=== PATIENT | female | born 1950 | race Caucasian/White ===

== ENCOUNTER 2020-02-19 08:19 | Outpatient (REF) | payer MEDICARE, SELFPAY ==
--- NOTE | 2020-02-19 08:32 | US_ITS ---
EXAMINATION: US ABDOMEN COMPLETE CLINICAL INFORMATION: Epigastric abdominal pain. COMPARISON: Renal ultrasound 12/05/2018 and 07/26/2009. KUB 10/16/2012. CT abdomen and pelvis 09/17/2012. TECHNIQUE: Real-time imaging of the abdominal viscera. FINDINGS: PANCREAS: Normal. ABDOMINAL AORTA: The proximal segment is normal in caliber. INFERIOR VENA CAVA: Visualized portions are normal. LIVER: Normal. The liver demonstrates normal size, contour and echogenicity. No focal lesion or intrahepatic biliary duct dilatation. GALLBLADDER: Normal. The gallbladder is physiologically distended without evidence of stones, sludge, polyps, wall thickening or pericholecystic fluid. COMMON BILE DUCT: Normal in caliber measuring 0.2 cm in diameter. RIGHT KIDNEY: Two echogenic, shadowing foci in the right kidney are noted, measuring 0.8 cm in diameter at a lower pole calyx and 1.2 cm in diameter within the renal pelvis, most consistent with calculi. No hydronephrosis or focal parenchymal lesions. The kidney measures 11.4 cm in maximum dimension. LEFT KIDNEY: Three echogenic, shadowing foci in the left kidney are noted, measuring 0.9, 1.5, and 0.7 cm in diameter, situated in within calyces in the lower pole, upper pole/interpolar region, and upper pole/interpolar region, respectively. No hydronephrosis or focal parenchymal lesions. The kidney measures 11.4 cm in maximum dimension. SPLEEN: Normal. The spleen measures 9.3 cm in maximum dimension. FREE FLUID: None. IMPRESSION: Bilateral nephrolithiasis. No hydronephrosis to indicate an obstruction.
== END 2020-02-19 08:20 | disposition home or self-care (01) ==
LOC: HO.US 08:19
PROVIDERS: PCP Surgery Plastic and Reconstructive Surgery; Visit Provider Internal Medicine
DX: R10.13 Epigastric pain (principal)
CPT/HCPCS: 76700

== ENCOUNTER 2020-03-12 15:02 | Outpatient (REF) | payer MEDICARE, SELFPAY ==
--- NOTE | 2020-03-12 15:11 | MM_ITS ---
EXAMINATION: MM DIAGNOSTIC DIGITAL BREAST TOMOSYNTHESIS, BILATERAL CLINICAL INFORMATION: Remote history left breast cancer 1999 status post lumpectomy. 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 Family history breast cancer in mother, age 65. Due for yearly. COMPARISON: Mammography: 12/09/2019, 03/26/2019, 02/26/2019, 02/21/2018, 02/22/2017, 01/12/2016, 07/25/2013 TECHNIQUE: Digital breast tomosynthesis is performed in both the craniocaudal and mediolateral oblique views along with computer-aided detection (CAD). Synthesized 2D images are generated from the tomosynthesis. Additional views are obtained: Bilateral exaggerated CC, magnification right CC x2, magnification right ML x2. FINDINGS: There are scattered areas of fibroglandular density (ACR BI-RADS breast composition Category b). There are minor postsurgical changes right breast similar to prior study. There are no recurrent calcifications. Biopsy clip marker again noted right mid 9:00 position. There is a chronic nodule overlying posterior medial right breast likely dermal lesion. Left breast has chronic post therapy changes with reduced breast size old scarring. There is chronic oval parenchymal asymmetry central breast and scattered fibroglandular asymmetries again seen. Neither breast shows interval mass or architectural abnormality or suspicious changes. No abnormal calcifications. Results are provided to the patient at time of visit by the technologist. MM/MM tomosynthesis diagnostic BI IMPRESSION: No mammographic evidence of malignancy. Bilateral postsurgical changes. ASSESSMENT: BI-RADS 2: Benign RECOMMENDATION: Annual bilateral mammography. This patient's information was entered into a reminder system with a target due date for their next mammogram.
== END 2020-03-12 15:03 | disposition home or self-care (01) ==
LOC: HO.MAMMO 15:02
PROVIDERS: Visit Provider Surgery Plastic and Reconstructive Surgery
DX: Z85.3 Personal history of malignant neoplasm of breast (principal); Z86.000 Personal history of in-situ neoplasm of breast
CPT/HCPCS: 77062; 77066

== ENCOUNTER 2020-06-30 12:35 | Outpatient (REF) | payer MEDICARE, SELFPAY ==
[2020-06-30 13:57] LABS: MANUAL DIFF FLAG NO
[2020-06-30 14:16] LABS: Basophils Percent Auto 0.6 % (0-2); Eosinophils Absolute Auto 0.2 X10*3/uL (0.0-0.4); Eosinophils Percent Auto 2.5 % (0-4); Hematocrit 41.7 % (37-47); Hemoglobin 12.9 g/dl (12.0-16.0); Imm Gran Abs Auto 0.02 X10*3/uL (0.00-0.03); Imm Gran Pct Auto 0.3 % (0.0-0.4); Lymphocytes Absolute Auto 1.6 X10*3/uL (1.2-4.9); Lymphocytes Percent Auto 22.8 % (20-40); Mean Corpuscular HGB Conc 30.9 g/dl (31.0-35.0); Mean Corpuscular Hemoglobin 29.3 pg (27.0-33.0); Mean Corpuscular Volume 94.8 fL (80-98); Mean Platelet Volume 11.3 fL (9.4-12.3); Monocytes Absolute Auto 0.6 X10*3/uL (0.1-1.2); Monocytes Percent Auto 8.7 % (2-11); Neutrophils Absolute Auto 4.6 X10*3/uL (2.0-8.3); Neutrophils Percent Auto 65.1 % (45-73); Platelet Count 214 X10*3/uL (160-400); Red Cell Distribution Width 13.2 % (11.0-16.0); White Blood Count 7.1 X10*3/uL (4.8-10.8)
[2020-06-30 14:36] LABS: Alanine Aminotransferase 29 U/L (0-31); Albumin Level 4.1 g/dL (3.5-5.0); Alkaline Phosphatase 60 U/L (39-117); Anion Gap 11 (12-20); Aspartate Amino Transferase 26 U/L (5-31); Bilirubin Total 0.7 mg/dL (0.0-1.0); Blood Urea Nitrogen 20 mg/dL (9-16); C Reactive Protein 0.45 mg/dL (< or = 0.50); Carbon Dioxide 31 mmol/L (22-29); Chloride 104 mmol/L (96-108); Estimated Glomerular Filt Rate > 60; Glucose Random 84 mg/dL (60-115); Potassium 4.1 mmol/L (3.3-5.1); Sodium 142 mmol/L (135-145); Total Protein 6.7 g/dL (6.5-8.0)
[2020-06-30 14:45] LABS: Free T4 (Free Thyroxine) 1.14 ng/dL (0.71-1.85)
== END 2020-06-30 12:36 | disposition home or self-care (01) ==
LOC: HO.10HDL 12:35
PROVIDERS: Visit Provider Internal Medicine
DX: I10 Essential (primary) hypertension (principal); R60.9 Edema, unspecified; K21.9 Gastro-esophageal reflux disease without esophagitis; L40.9 Psoriasis, unspecified
CPT/HCPCS: 36415; 80053; 84439; 84443; 85025; 86140

== ENCOUNTER 2020-09-20 14:02 | Outpatient (REF) | payer MEDICARE, SELFPAY ==
[2020-09-20 14:50] LABS: MANUAL DIFF FLAG NO
[2020-09-20 14:53] LABS: Basophils Percent Auto 0.6 % (0-2); Eosinophils Absolute Auto 0.2 X10*3/uL (0.0-0.4); Hematocrit 41.2 % (37-47); Hemoglobin 13.1 g/dl (12.0-16.0); Imm Gran Abs Auto 0.01 X10*3/uL (0.00-0.03); Imm Gran Pct Auto 0.2 % (0.0-0.4); Lymphocytes Absolute Auto 1.9 X10*3/uL (1.2-4.9); Lymphocytes Percent Auto 30.1 % (20-40); Mean Corpuscular HGB Conc 31.8 g/dl (31.0-35.0); Mean Corpuscular Hemoglobin 30.7 pg (27.0-33.0); Mean Corpuscular Volume 96.5 fL (80-98); Mean Platelet Volume 10.7 fL (9.4-12.3); Monocytes Absolute Auto 0.5 X10*3/uL (0.1-1.2); Monocytes Percent Auto 7.9 % (2-11); Neutrophils Absolute Auto 3.7 X10*3/uL (2.0-8.3); Neutrophils Percent Auto 58.2 % (45-73); Platelet Count 203 X10*3/uL (160-400); Red Blood Count 4.27 X10*6/uL (4.20-5.50); Red Cell Distribution Width 13.4 % (11.0-16.0); White Blood Count 6.3 X10*3/uL (4.8-10.8)
[2020-09-20 15:15] LABS: Alanine Aminotransferase 24 U/L (0-31); Alkaline Phosphatase 61 U/L (39-117); Anion Gap 13 (12-20); Aspartate Amino Transferase 19 U/L (5-31); Bilirubin Total 0.7 mg/dL (0.0-1.0); Blood Urea Nitrogen 19 mg/dL (9-16); Carbon Dioxide 31 mmol/L (22-29); Chloride 103 mmol/L (96-108); Estimated Glomerular Filt Rate > 60; Glucose Random 96 mg/dL (60-115); Potassium 4.2 mmol/L (3.3-5.1); Sodium 143 mmol/L (135-145); Total Protein 6.4 g/dL (6.5-8.0)
[2020-09-20 15:24] LABS: B Type Natriuretic Peptide 83 pg/mL (<100)
[2020-09-20 15:41] LABS: Vitamin B12 536 pg/mL (200-900)
[2020-09-22 20:52] LABS: TS Negative Control Passed; TS Panel A 0; TS Panel B 0; TS Positive Control Passed; TSpotTB Negative (SeeBelow)
== END 2020-09-20 14:03 | disposition home or self-care (01) ==
LOC: HO.LAB 14:02
PROVIDERS: PCP Internal Medicine; Visit Provider Internal Medicine
DX: Z11.1 Encounter for screening for respiratory tuberculosis (principal); I10 Essential (primary) hypertension; R60.0 Localized edema; K21.9 Gastro-esophageal reflux disease without esophagitis; R53.83 Other fatigue
CPT/HCPCS: 36415; 80053; 82607; 83880; 85025; 86481

== ENCOUNTER → 2020-09-23 11:19 | Outpatient (REF) | payer MEDICARE, SELFPAY ==
--- NOTE | 2020-09-23 11:30 | CA_ITS ---
Transthoracic Echocardiogram Patient (Last, First, Middle): Eliza Ann P Gender: Female Date of : 1950 Age: 70 Procedure Date: 09/23/2020 Procedure Type: Transthoracic Echocardiogram Location: OP Height: 167.64 cm Weight: 68.04 kg BSA: 1.77 m2 Heart Rate: bpm BP: 158 / 60 mmHg Donkey Engine Firer/Fireman: [facility] MD: Joseph Valencia MD [facility] [employer] Professor: Cornelius Ponce MD Symptoms: R60.9 EDEMA Study Quality: Good ECG Rhythm: Sinus Conclusions: - 1. Normal LV systolic function with impaired relaxation filling pattern and elevated filling pressures next 2. Mildly dilated left atrium 3. Mild aortic stenosis and regurgitation 4. Vgyg-ly-[id number] elevation of right ventricular systolic pressure 5. No pericardial effusion Findings Left Ventricle Normal left ventricular size, thickness, and systolic function. The visually estimated ejection fraction is between 65-70%. Spectral Doppler is indicative of an impaired relaxation filling pattern. Elevated filling pressures. E/E prime ratio is >15, consistent with elevated filling pressures. Right Ventricle Normal right ventricular cavity size and systolic function. Atria The left atrium is mildly dilated. There is no evidence of interatrial shunt. The right atrium is normal in size. Aortic Valve There is mild calcification of the aortic valve. There is mild thickening of the aortic valve. There is mild aortic valve stenosis. The peak aortic gradient is 19 mmHg.The mean gradient is 12 mmHg. The aortic valve area is 1.96 cm2. There is mild aortic valve regurgitation. Mitral Valve There is moderate anterior and posterior mitral leaflet thickening. There is moderate mitral annular calcification. There is mild mitral valve regurgitation. There is no mitral valve stenosis. Pulmonic Valve The pulmonic valve was not well visualized. Tricuspid Valve Likely normal tricuspid valve structure and function. There is mild tricuspid valve regurgitation. Normal right atrial pressure. Mild to moderate pulmonary hypertension is present. Great Vessels All visible segments of the aorta are normal in size. The pulmonary artery was not well visualized. Venous The inferior vena cava is normal in size and collapses greater than 50% with inspiration. Pericardium/Pleural There is no evidence of pericardial effusion. Prior Study Comparison No prior study available for comparison. Measurements 2D Linear Measurements RVIDd: 2.55 RVIDd Index: 1.44 IVSd: 0.92 0.6-0.9/0.6-1.0 cm LVIDd: 4.05 3.9-5.3/4.2-5.9 cm LVIDd Index: 2.29 2.4-3.2/2.2-3.1 cm/m2 LVIDs: 2.63 2.0-3.6 cm LVPWd: 1.00 0.7-1.1 cm Ao Root: 2.80 2.1-3.5 cm LA Diam: 3.70 2.7-3.8/3.0-4.0 cm LAIDs Index: 2.09 1.5-2.3 cm/m2 LV Mass: 151.64 67-162/88-224 g LV Mass Index: 85.67 43-95/49-115 g/m2 LVOT Diam: 2.10 3.0+(-)1.3 cm 2D Systolic Function EF 4C: 73.60 >55% EF 2C: 53.00 >55% EF BiP: 64.70 >55% Mitral Valve MV VTI: 0.33 MV Pk Perez: 1.92 MV Mn Perez: 1.19 MV Pk Grad: 15.00 MV Mn Grad: 6.00 MV Pk E: 1.46 MV PK A: 1.84 MV Decel Time: 148.00 E/A: 0.80 E'Lateral: 11.50 E'Medial: 7.54 E/E' Med: 19.40 E/E' Lat: 12.70 PHT: 63.00 MVA PHT: 3.49 MVA Continuity: 3.12 Decel Stanly: 6.92 MR Vol - PW Dopp: 17.10 MR VTI: 1.71 MR ERO: 10.00 MR Alias Perez: 0.33 MR RAD: 0.50 Aortic Valve AoV Pk Perez: 2.20 AoV Mn Perez: 1.67 AoV VTI: 0.52 AoV Pk Grad: 19.00 Aov Mn Grad: 12.00 LEX Cont.VTI: 1.96 AI Pk Perez: 4.69 AI Stanly: 4.98 LVOT LVOT Pk Perez: 1.30 LVOT Mn Perez: 0.92 LVOT VTI: 0.29 LVOT Pk Grad: 7.00 LVOT Mn Grad: 4.00 LVOT Diam: 2.10 LVOT Area: 3.46 Diastolic Function MV Pk E: 1.46 MV Pk A: 1.84 E/A: 0.80 E'Medial: 7.54 E/E' Med: 19.40 E' Laterial: 11.50 E/E' Lat: 12.70 Tricuspid Valve TR Pk Perez: 3.32 TR Pk Grad: 44.00 RA Press: 3.00 RVSP: 47.00 Great Vessels Aorta Ao Root-2D: 2.80 2.0-3.7 cm Ao Asc: 3.40 2.1-3.4 cm Ao Arch: 2.40 Updated in Other Vendor System with Status of Final Cornelius Ponce MD electronically signed on 09/24/2020 3:30:54 PM with status of Final
== END ==
LOC: HO.CARD 11:19
PROVIDERS: PCP Internal Medicine; Visit Provider Internal Medicine
DX: R60.9 Edema, unspecified (principal)
CPT/HCPCS: 93306

== ENCOUNTER → 2020-10-06 14:10 | Outpatient (BNVA) | payer MEDICARE, SELFPAY | PROVIDERS: PCP Internal Medicine; Visit Provider Internal Medicine | DX: I27.20 Pulmonary hypertension, unspecified (principal) | CPT/HCPCS: 99202 ==

== ENCOUNTER 2020-10-20 14:11 | Outpatient (REF) | payer MEDICARE, SELFPAY ==
--- NOTE | 2020-10-20 15:08 | PFT_ITS ---
Forced vital capacity moderately reduced. FEV1, MWN41-74, and MVV are markedly reduced. Post bronchodilator therapy, there is significant improvement in FEV1, DLM04-81, and MVV. Total lung capacity is slightly decreased. Residual volume normal. Diffusion capacity is markedly decreased. CONCLUSION: 1. Very mild restrictive pulmonary disorder. 2. Severe obstructive airway disorder. 3. Positive response to bronchodilator therapy resulting in partial reversibility. 4. Clinical correlation is recommended. MD MARIO Alvarenga/MODL / [id number]
== END 2020-10-20 14:12 | disposition home or self-care (01) ==
LOC: HO.RESP 14:11
PROVIDERS: PCP Internal Medicine; Visit Provider Internal Medicine
DX: I27.20 Pulmonary hypertension, unspecified (principal)
CPT/HCPCS: 94060; 94727; 94729

== ENCOUNTER → 2020-11-08 15:31 | Outpatient (BNVA) | payer MEDICARE, SELFPAY | PROVIDERS: PCP Internal Medicine; Visit Provider Internal Medicine | DX: I27.20 Pulmonary hypertension, unspecified (principal); J44.9 Chronic obstructive pulmonary disease, unspecified | CPT/HCPCS: 99212 ==

== ENCOUNTER → 2020-12-06 15:48 | Outpatient (BNVA) | payer MEDICARE, SELFPAY | PROVIDERS: PCP Internal Medicine; Visit Provider Internal Medicine | DX: J44.9 Chronic obstructive pulmonary disease, unspecified (principal); I27.20 Pulmonary hypertension, unspecified | CPT/HCPCS: 99212 ==

== ENCOUNTER 2021-02-22 15:48 | Outpatient (REF) | payer MEDICARE, SELFPAY ==
[2021-02-22 16:04] LABS: MANUAL DIFF FLAG NO
[2021-02-22 16:32] LABS: Basophils Percent Auto 0.5 % (0-2); Eosinophils Absolute Auto 0.2 X10*3/uL (0.0-0.4); Eosinophils Percent Auto 2.6 % (0-4); Hematocrit 43.2 % (37-47); Imm Gran Abs Auto 0.01 X10*3/uL (0.00-0.03); Imm Gran Pct Auto 0.2 % (0.0-0.4); Lymphocytes Absolute Auto 1.8 X10*3/uL (1.2-4.9); Lymphocytes Percent Auto 29.7 % (20-40); Mean Corpuscular HGB Conc 32.4 g/dl (31.0-35.0); Mean Corpuscular Hemoglobin 30.9 pg (27.0-33.0); Mean Corpuscular Volume 95.4 fL (80-98); Mean Platelet Volume 10.6 fL (9.4-12.3); Monocytes Absolute Auto 0.6 X10*3/uL (0.1-1.2); Monocytes Percent Auto 9.1 % (2-11); Neutrophils Absolute Auto 3.6 X10*3/uL (2.0-8.3); Neutrophils Percent Auto 57.9 % (45-73); Platelet Count 200 X10*3/uL (160-400); Red Blood Count 4.53 X10*6/uL (4.20-5.50); Red Cell Distribution Width 12.6 % (11.0-16.0); White Blood Count 6.2 X10*3/uL (4.8-10.8)
[2021-02-22 16:56] LABS: Alanine Aminotransferase 28 U/L (0-31); Alkaline Phosphatase 58 U/L (39-117); Anion Gap 12 (12-20); Aspartate Amino Transferase 22 U/L (5-31); Bilirubin Total 0.6 mg/dL (0.0-1.0); Blood Urea Nitrogen 16 mg/dL (9-16); Calcium 10.1 mg/dL (8.4-10.2); Carbon Dioxide 30 mmol/L (22-29); Chloride 104 mmol/L (96-108); Estimated Glomerular Filt Rate > 60; Glucose Random 91 mg/dL (60-115); Potassium 4.3 mmol/L (3.3-5.1); Sodium 142 mmol/L (135-145); Total Protein 6.5 g/dL (6.5-8.0)
[2021-02-22 17:15] LABS: Thyroid Stimulating Hormone 0.93 uIU/mL (0.32-4.0)
[2021-02-22 17:19] LABS: Vitamin B12 652 pg/mL (200-900)
== END 2021-02-22 15:49 | disposition home or self-care (01) ==
LOC: HO.LAB 15:48
PROVIDERS: PCP Internal Medicine; Visit Provider Internal Medicine
DX: I10 Essential (primary) hypertension (principal); R60.0 Localized edema; J44.9 Chronic obstructive pulmonary disease, unspecified; R53.1 Weakness
CPT/HCPCS: 36415; 80053; 82607; 84443; 85025

== ENCOUNTER 2021-02-28 08:57 | Day surgery (SDC) | payer MEDICARE, SELFPAY ==
--- NOTE | 2021-02-25 08:49 | P.CONAN_ITS ---
Documented by User: Viji Chopra NP 02/25/21 08:50 HPI - Anesthesia Eval Consult details Narrative: 71yo F for Colonoscopy PMFSH Active Problems Active Problems: All Active Problems (Updated 02/22/21 @ 16:19 by Kamila Villalobos, RN) Asthma-COPD overlap syndrome (Acute) Pulmonary hypertension (Acute) Past Medical History Medical History (Updated 02/22/21 @ 16:19 by Kamila Villalobos, RN) Anemia Anxiety Arthritis Asthma-COPD overlap syndrome GERD (gastroesophageal reflux disease) Hiatal hernia History of kidney stones Hx of radiation therapy Hyperparathyroidism Lung cancer PONV (postoperative nausea and vomiting) Proctitis Pulmonary hypertension Surgical History Surgical History (Updated 02/22/21 @ 16:19 by Kamila Villalobos, RN) History of esophagogastroduodenoscopy History of lithotripsy History of lobectomy of lung History of lumpectomy of both breasts History of right inguinal hernia repair Hx of colonoscopy Hx of varicose vein ligation and stripping Social History Social History Advance Directives: No Advance Directives Information Provided: Yes Meds Allergies Allergy/AdvReac Type Severity Reaction Status Date / Time sulfamethoxazole Allergy Intermediate HIVES/RASH/ Verified 02/23/21 09:06 [From BACTRIM] SWELLING codeine Allergy Unknown nausea Verified 02/23/21 09:06 Penicillins Allergy Unknown Verified 02/23/21 09:06 Home Medications Medication Instructions Recorded Confirmed Last Taken Type alprazolam 0.25 mg tablet 0.25 mg PO TID PRN 10/06/20 02/22/21 Unknown History aspirin 81 mg tablet,delayed 81 mg PO DAILY 10/06/20 02/22/21 Unknown History release (Adult Aspirin Regimen) biotin 2,500 mcg capsule 5 mg PO DAILY 10/06/20 02/22/21 Unknown History coconut oil 1,000 mg capsule mg PO 10/06/20 Unknown History ferrous fumarate 89 mg (29 mg 89 mg PO DAILY 10/06/20 02/22/21 Unknown History iron) tablet hydrochlorothiazide 12.5 mg capsule 12.5 mg PO BID 10/06/20 02/22/21 Unknown History mesalamine 1,000 mg rectal VT 10/06/20 Unknown History suppository multivitamin 1 tab PO DAILY 10/06/20 02/22/21 Unknown History omeprazole 20 mg capsule,delayed 20 mg PO BID 10/06/20 02/22/21 Unknown History release tamoxifen 20 mg tablet 20 mg PO DAILY 10/06/20 02/22/21 Unknown History clobetasol 0.05 % topical ointment g TOPICAL 12/06/20 Unknown History Exam Exam Date and Time: February 25, 2021 0849 Pertinent Lab Results Pertinent Lab Results: Laboratory Tests 02/22/21 02/22/21 16:02 16:02 WBC 6.2 Hgb 14.0 Hct 43.2 Plt Count 200 Sodium 142 Potassium 4.3 Chloride 104 Carbon Dioxide 30 H BUN 16 Creatinine 0.75 Narrative Narrative: ECHO 09/2020 Conclusions: - 1. Normal LV systolic function with impaired relaxation filling pattern and elevated filling pressures next 2. Mildly dilated? left atrium? 3. Mild aortic stenosis and regurgitation? 4. Paja-ge-fctbjlzr elevation of right ventricular systolic? ? ? pressure ? 5. No pericardial effusion ? ?? PFT 10/2020 Forced vital capacity moderately reduced.? FEV1, BFH95-77, and MVV are markedly reduced. ? Post bronchodilator therapy, there is significant improvement in FEV1, FAT39-26, and MVV. ? Total lung capacity is slightly decreased.? Residual volume normal. ? Diffusion capacity is markedly decreased. ? CONCLUSION:? 1. Very mild restrictive pulmonary disorder. 2. Severe obstructive airway disorder. 3. Positive response to bronchodilator therapy resulting in partial reversibility. 4. Clinical correlation is recommended. Assessment and Plan Assessment Anesthesia Assessment: Chart Reviewed Documented by User: Hilda Lo MD 02/28/21 10:18 [facility] Past Medical History Medical History (Updated 02/22/21 @ 16:19 by Kamila Villalobos RN) Anemia Anxiety Arthritis Asthma-COPD overlap syndrome GERD (gastroesophageal reflux disease) Hiatal hernia History of kidney stones Hx of radiation therapy Hyperparathyroidism Lung cancer PONV (postoperative nausea and vomiting) Proctitis Pulmonary hypertension Surgical History Surgical History (Updated 02/22/21 @ 16:19 by Kamila Villalobos, RN) History of esophagogastroduodenoscopy History of lithotripsy History of lobectomy of lung History of lumpectomy of both breasts History of right inguinal hernia repair Hx of colonoscopy Hx of varicose vein ligation and stripping Social History Social History Advance Directives: No Advance Directives Information Provided: Yes Meds Allergies Allergy/AdvReac Type Severity Reaction Status Date / Time sulfamethoxazole Allergy Intermediate HIVES/RASH/ Verified 02/23/21 09:06 [From BACTRIM] SWELLING codeine Allergy Unknown nausea Verified 02/23/21 09:06 Penicillins Allergy Unknown Verified 02/23/21 09:06 Home Medications Medication Instructions Recorded Confirmed Last Taken Type alprazolam 0.25 mg tablet 0.25 mg PO TID PRN 10/06/20 02/22/21 Unknown History aspirin 81 mg tablet,delayed 81 mg PO DAILY 10/06/20 02/22/21 Unknown History release (Adult Aspirin Regimen) biotin 2,500 mcg capsule 5 mg PO DAILY 10/06/20 02/22/21 Unknown History coconut oil 1,000 mg capsule mg PO 10/06/20 Unknown History ferrous fumarate 89 mg (29 mg 89 mg PO DAILY 10/06/20 02/22/21 Unknown History iron) tablet hydrochlorothiazide 12.5 mg capsule 12.5 mg PO BID 10/06/20 02/22/21 Unknown History mesalamine 1,000 mg rectal VT 10/06/20 Unknown History suppository multivitamin 1 tab PO DAILY 10/06/20 02/22/21 Unknown History omeprazole 20 mg capsule,delayed 20 mg PO BID 10/06/20 02/22/21 Unknown History release tamoxifen 20 mg tablet 20 mg PO DAILY 10/06/20 02/22/21 Unknown History clobetasol 0.05 % topical ointment g TOPICAL 12/06/20 Unknown History Exam Airway Mallampati Class: II TM Dist: >3cm Neck ROM: Full Denture: Upper and Lower
[2021-02-28 11:40] VITALS: BP 105/50; PULSE 82; RESP 16; TEMP 36.1; O2SAT 100
--- NOTE | 2021-02-28 11:44 | PM.OP ---
Brief Operative Note Date of Service: 02/28/21 Pre-op diagnosis: Screening Post-op diagnosis: other (Colon polyps) Procedure: Colonoscopy to the cecum and TI with bx/removal of polyps and snare polypectomy Surgeon: George Nguyen Anesthesia: MAC Was an Systems Administrator used for this Procedure?: No Estimated blood loss (mL): 3.0 Pathology: other (A. Colon polyp at 30cm B. Polyps at 60cm) Condition: stable Disposition: PACU
[2021-02-28 11:55] VITALS: BP 134/48; PULSE 81; RESP 16; TEMP 36.1; O2SAT 100
--- NOTE | 2021-02-28 12:01 | OP_ITS ---
SURGEON: George Nguyen MD INDICATIONS: The patient presents for evaluation of personal history of underlying colitis and personal history of tubulovillous adenoma of the colon. Full consent has been obtained from her for this, including risks of bleeding and perforation. PREOPERATIVE DIAGNOSIS: POSTOPERATIVE DIAGNOSIS: PROCEDURE PERFORMED: Colonoscopy to the cecum and terminal ileum with snare polypectomy, and biopsy and removal of polyps. ESTIMATED BLOOD LOSS: COMPLICATIONS: ANESTHESIA: Monitored anesthesia care. ASSISTANTS: SPECIMENS: PREOPERATIVE DIAGNOSES: Colorectal cancer screening, colitis, and personal history of tubulovillous adenoma of the colon. POSTOPERATIVE DIAGNOSES: Colorectal cancer screening, colitis, and personal history of tubulovillous adenoma of the colon, colon polyps, diverticulosis, internal hemorrhoids. DESCRIPTION OF PROCEDURE: The patient was placed in the left lateral decubitus position. The digital rectal exam revealed no abnormalities. The Olympus video pediatric colonoscope was entered into the rectum and advanced easily to the cecum. Once in the cecum, I did identify cecal pouch with appendiceal orifice and a normal-appearing ileocecal valve. The terminal ileum was cannulated and appeared normal. Scope was withdrawn back in the colon. The entire cecum was well visualized and appeared normal other than some very minimal changes of colitis with some erythema and friability. There were no ulcerations, polyps, nor any other lesions. The ileocecal valve appeared normal. The scope was slowly withdrawn assessing all mucosal surfaces carefully. Preparation was excellent. At 60 cm, were 2 flat less than 5 mm polyps, which were each biopsied and completely removed with cold biopsy forceps. At 30 cm, was an approximately 6 to 8 mm grossly adenomatous polyp, which was snared and recovered by suction. The polypectomy site appeared clean, without any sign of residual polyp nor bleeding. I did not visualize any other polyps, colitis, nor angiodysplasia. There was a moderate amount of sigmoid diverticulosis. In the rectum, scope was retroflexed visualizing some internal hemorrhoids, but no sign of any active proctitis. The scope was straightened out and withdrawn from the patient. She tolerated the procedure well and was returned to recovery area in stable condition. IMPRESSION: 1. Colon polyps, status post snare polypectomy, and biopsy and removal. 2. Diverticulosis. 3. Internal hemorrhoids. PLAN: The results of the pathology will be checked. I would recommend a repeat colonoscopy in 3 years for further surveillance. She is currently doing well and no particular treatment for the underlying colitis and proctitis, and she will continue to be observed in that regard. If things are stable, she will otherwise see me in the interim on a p.r.n. basis. She was advised not to use any aspirin nor NSAIDs for at least 1 week. MD DOUGIE Qureshi/JUAN RAMON / [id number]
== END 2021-02-28 13:00 | disposition home or self-care (01) ==
PROVIDERS: PCP Internal Medicine; Visit Provider Internal Medicine
PROC: 0DJD8ZZ Inspection of Lower Intestinal Tract, Via Natural or Artificial Opening Endoscopic (ICD-10-PCS; CPT 45378; principal; 2021-02-28 10:10)
DX: Z12.11 Encounter for screening for malignant neoplasm of colon (principal); Z86.010 Personal history of colon polyps; K52.9 Noninfective gastroenteritis and colitis, unspecified; D12.5 Benign neoplasm of sigmoid colon; D12.4 Benign neoplasm of descending colon; K57.30 Diverticulosis of large intestine without perforation or abscess without bleeding; K64.8 Other hemorrhoids; K62.89 Other specified diseases of anus and rectum; K21.9 Gastro-esophageal reflux disease without esophagitis; C50.912 Malignant neoplasm of unspecified site of left female breast; J44.9 Chronic obstructive pulmonary disease, unspecified; Z85.118 Personal history of other malignant neoplasm of bronchus and lung; Z79.810 Long term (current) use of selective estrogen receptor modulators (SERMs); Z92.3 Personal history of irradiation; Z79.899 Other long term (current) drug therapy; Z79.82 Long term (current) use of aspirin; Z87.891 Personal history of nicotine dependence
CPT/HCPCS: 45385; 45380; 88305

== ENCOUNTER 2021-03-11 13:39 | Outpatient (REF) | payer MEDICARE, SELFPAY ==
--- NOTE | ~2021-03-11 | US_ITS ---
EXAMINATION: US DIAGNOSTIC ULTRASOUND BREAST, LEFT CLINICAL INFORMATION: New left breast mass. COMPARISON: Mammography of same day and studies dating back to December 25, 2013. TECHNIQUE: Ultrasound of the breast is performed with real-time robertson scale imaging and color Doppler. FINDINGS: Targeted ultrasound evaluation of the left breast demonstrated at the 6:00 position approximately 2 cm from the nipple a hypoechoic mass measuring approximately 8 x 7 x 5 mm in size with some peripheral vascularity and a hyperechoic outer rim. There is minimal distal sound enhancement and no distal sound shadowing. The lesion is wider than it is tall. Patient states that her breast surgery on this side was many years ago so this would not be expected to be a seroma or new region of fat necrosis and is suspicious for possible malignancy. Results are discussed with the patient at time of visit. US/US breast LT limited IMPRESSION: Approximately 9 mm in diameter solid lesion deep inferior aspect of the left breast for which ultrasound-guided biopsy is recommended. The above was discussed with the patient at time of surgery. The breast center hull outfit supervisor called the above recommendations to referring provider's office. ASSESSMENT: BI-RADS 4: Suspicious RECOMMENDATION: Ultrasound-guided core biopsy left breast lesion
--- NOTE | ~2021-03-11 | MM_ITS ---
EXAMINATION: MM DIAGNOSTIC DIGITAL BREAST TOMOSYNTHESIS, BILATERAL TARGETED LEFT BREAST ULTRASOUND CLINICAL INFORMATION: History of previous bilateral lumpectomies. COMPARISON: Mammography: 03/12/2020 and studies dating back to 12/12/2011. TECHNIQUE: Digital breast tomosynthesis is performed in both the craniocaudal and mediolateral oblique views along with computer-aided detection (CAD). Synthesized 2D images are generated from the tomosynthesis. Additional spot magnification views of the right breast in craniocaudal and 90 degree mediolateral views performed. FINDINGS: There are scattered areas of fibroglandular density (ACR BI-RADS breast composition Category b). There is a stable parenchymal pattern of the right breast with no new abnormal dominant mass or suspicious grouping of microcalcifications. Architecture distortion from previous lumpectomy upper outer aspect right breast is seen. Evaluation of the left breast demonstrated a new lobulated density within the deep inferior aspect. This measures approximately 9 x 7 mm in size and lies approximately 4 cm from the nipple. Architecture distortion from previous lumpectomy noted as well. Targeted ultrasound evaluation of the left breast demonstrated at the 6 o'clock position approximately 2 cm from the nipple a hypoechoic mass measuring approximately 8 x 7 x 5 mm in size with some peripheral vascularity and a hyperechoic outer rim. There is minimal distal sound enhancement and no distal sound shadowing. The lesion is wider than it is tall. Patient states that her breast surgery on this side was many years ago so this would not be expected to be a seroma or new region of fat necrosis and is suspicious for possible malignancy. Results are discussed with the patient at time of visit. MM/MM tomosynthesis diagnostic BI IMPRESSION: New approximately 9 mm in diameter solid lesion deep inferior aspect of the left breast for which ultrasound-guided biopsy is recommended. The above was discussed with the patient at time of surgery. The breast center life sciences director called the above recommendations to referring provider's office. ASSESSMENT: BI-RADS 4: Suspicious RECOMMENDATION: Ultrasound-guided core biopsy left breast lesion.
== END 2021-03-11 13:40 | disposition home or self-care (01) ==
LOC: HO.MAMMO 13:39
PROVIDERS: PCP Internal Medicine; Visit Provider Surgery
DX: C50.911 Malignant neoplasm of unspecified site of right female breast (principal); Z85.3 Personal history of malignant neoplasm of breast
CPT/HCPCS: 76642; 77062; 77066

== ENCOUNTER 2021-03-24 09:32 | Outpatient (REF) | payer MEDICARE, SELFPAY ==
--- NOTE | ~2021-03-24 | MM_ITS ---
EXAMINATION: ULTRASOUND GUIDED CORE BIOPSY BREAST, LEFT POST PROCEDURE DIGITAL MAMMOGRAM, LEFT CLINICAL INFORMATION: 1 cm nodule lower left breast for tissue sampling. Prior history remote left breast cancer 1998. 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 Family history breast cancer in mother. COMPARISON: Mammography 03/11/2021, targeted left breast ultrasound 03/11/2021. FINDINGS: Proper informed consent is obtained from the patient after discussion of the procedure, potential risks and complications, and alternatives. Patient was given an opportunity for questions. The patient appeared to understand. The patient consented to the procedure and signed the consent form. GUIDANCE: Ultrasound-guided; aseptic technique. LESION: Hypoechoic nodule approximately 1 cm posterior inferior left breast. APPROACH: Lateral medial. ANESTHESIA: 9 mL carbonated 1% lidocaine. DERMATOTOMY: Single skin pablo dermatotomy performed. NEEDLE: 14-gauge Achieve core biopsy device with 13.5-gauge co-axial guide needle. CORES: 5. CLIP: HydroMARK; shape: butterfly. POST PROCEDURE UNILATERAL DIGITAL MAMMOGRAM: The post biopsy mammogram is performed in separate room using separate digital mammography equipment from the biopsy procedure. CC, exaggerated CC, and ML views are obtained. There are scattered areas of fibroglandular density (breast composition category: b). The clip marker is in position and corresponds to the finding on recent mammography. No gross hematoma. The patient tolerated the procedure well. No immediate complications. Home instructions reviewed with the patient. Final pathology results are pending. MM/MM diagnostic mammo unilat LT IMPRESSION: 1. Status post ultrasound-guided core biopsy left breast. 2. Clip placed: HydroMARK; shape: butterfly. 3. Pathology pending. An addendum report will be issued.
== END 2021-03-24 09:33 | disposition home or self-care (01) ==
LOC: HO.MAMMO 09:32
PROVIDERS: PCP Internal Medicine; Visit Provider Surgery
DX: C50.911 Malignant neoplasm of unspecified site of right female breast (principal); R92.8 Other abnormal and inconclusive findings on diagnostic imaging of breast; Z85.3 Personal history of malignant neoplasm of breast; Z79.899 Other long term (current) drug therapy
CPT/HCPCS: 19083; 77065; 88305; 88341; 88342; 88360; 99212

== ENCOUNTER → 2021-03-29 13:22 | Outpatient (BNVA) | payer MEDICARE, SELFPAY | PROVIDERS: PCP Internal Medicine; Referring Provider Internal Medicine; Visit Provider Surgery | DX: C50.812 Malignant neoplasm of overlapping sites of left female breast (principal); Z17.0 Estrogen receptor positive status [ER+]; N64.4 Mastodynia; E21.3 Hyperparathyroidism, unspecified; I27.20 Pulmonary hypertension, unspecified; Z85.3 Personal history of malignant neoplasm of breast; Z92.3 Personal history of irradiation; Z85.118 Personal history of other malignant neoplasm of bronchus and lung; Z90.2 Acquired absence of lung [part of]; Z88.6 Allergy status to analgesic agent; Z88.0 Allergy status to penicillin; Z88.2 Allergy status to sulfonamides; Z79.810 Long term (current) use of selective estrogen receptor modulators (SERMs); Z08 Encounter for follow-up examination after completed treatment for malignant neoplasm | CPT/HCPCS: 99212 ==

== ENCOUNTER → 2021-04-12 15:11 | Outpatient (BNVA) | payer MEDICARE, SELFPAY | PROVIDERS: PCP Internal Medicine; Visit Provider Internal Medicine | DX: J44.9 Chronic obstructive pulmonary disease, unspecified (principal); I27.20 Pulmonary hypertension, unspecified; C50.912 Malignant neoplasm of unspecified site of left female breast; E21.3 Hyperparathyroidism, unspecified; Z85.118 Personal history of other malignant neoplasm of bronchus and lung; Z92.3 Personal history of irradiation; Z80.3 Family history of malignant neoplasm of breast; Z88.6 Allergy status to analgesic agent; Z88.0 Allergy status to penicillin; Z88.2 Allergy status to sulfonamides; Z79.82 Long term (current) use of aspirin; Z79.810 Long term (current) use of selective estrogen receptor modulators (SERMs); Z79.899 Other long term (current) drug therapy | CPT/HCPCS: Q3014 ==

== ENCOUNTER → 2021-04-26 14:09 | Outpatient (BNVA) | payer MEDICARE, SELFPAY | PROVIDERS: PCP Internal Medicine; Referring Provider Internal Medicine; Visit Provider Surgery | DX: C50.912 Malignant neoplasm of unspecified site of left female breast (principal) | CPT/HCPCS: 99212 ==

== ENCOUNTER 2021-05-09 06:52 | Day surgery (SDC) | payer MEDICARE, SELFPAY ==
[2021-05-03 15:29] VITALS: BMI 25.0
--- NOTE | 2021-05-05 09:10 | P.CONAN_ITS ---
Documented by User: Viji Chopra NP 05/05/21 09:13 HPI - Anesthesia Eval Consult details Narrative: 71yo F for Left [place] Node Biopsy, Breast Biopsy Needle Localization, Breast Lumpectomy s/p colo 02/2021 with [facility] PMFSH Active Problems Active Problems: All Active Problems (Updated 05/03/21 @ 15:28 by Yana Rivera, RN) Breast cancer, right (Acute) History of left breast cancer (Acute) Abnormal mammogram of left breast (Acute) Abnormal ultrasound of breast (Acute) Invasive ductal carcinoma of left breast (Acute) Asthma-COPD overlap syndrome (Acute) Pulmonary hypertension (Acute) Past Medical History Medical History Anemia Anxiety Arthritis Asthma-COPD overlap syndrome GERD (gastroesophageal reflux disease) Hiatal hernia History of kidney stones Hx of radiation therapy Hyperparathyroidism Lung cancer PONV (postoperative nausea and vomiting) Proctitis Pulmonary hypertension Slow to wake up after anesthesia Family History Family History Mother Breast cancer Surgical History Surgical History History of esophagogastroduodenoscopy History of lithotripsy History of lobectomy of lung History of lumpectomy of both breasts History of right inguinal hernia repair Hx of colonoscopy Hx of varicose vein ligation and stripping Social History Social History Are you a primary hearing healthcare practitioner to a significant other at home: Yes (sister with Down's dementia) Do you presently have visiting nurse or other home services: No Patient Tobacco Use Status: Former Tobacco user Quit Date: 1998 Tobacco use type: Cigarette Use of substances other than those prescribed or required for medical reasons: No Have you been hit, kicked, punched, or otherwise hurt by someone within the past year? If so, by whom?: No Are you DNR?: No Advance Directives: No Advance Directives Information Provided: No Advance Directives on File: No Meds Allergies Allergy/AdvReac Type Severity Reaction Status Date / Time codeine Allergy Severe nausea Verified 05/03/21 14:37 Penicillins Allergy Severe Anaphylaxis Verified 05/03/21 14:37 sulfamethoxazole Allergy Severe HIVES/RASH/ Verified 05/03/21 14:37 [From BACTRIM] SWELLING Home Medications Medication Instructions Recorded Confirmed Last Taken Type alprazolam 0.25 mg tablet 0.25 mg PO TID PRN 10/06/20 05/03/21 05/09/21 History aspirin 81 mg tablet,delayed 81 mg PO DAILY 10/06/20 05/03/21 05/08/21 History release (Adult Aspirin Regimen) biotin 2,500 mcg capsule 5 mg PO DAILY 10/06/20 05/03/21 Unknown History coconut oil 1,000 mg capsule 1,000 mg PO DAILY 10/06/20 05/03/21 Unknown History hydrochlorothiazide 12.5 mg capsule 37.5 mg PO DAILY 10/06/20 05/03/21 Unknown History mesalamine 1,000 mg rectal 1,000 mg IL BEDTIME PRN 10/06/20 05/03/21 Unknown History suppository multivitamin 1 tab PO DAILY 10/06/20 05/03/21 Unknown History omeprazole 20 mg capsule,delayed 20 mg PO BID 10/06/20 05/03/21 05/09/21 History release tamoxifen 20 mg tablet 20 mg PO DAILY 10/06/20 05/03/21 04/29/21 08:00 History clobetasol 0.05 % topical ointment g TOPICAL 12/06/20 04/27/21 Unknown History acetaminophen 500 mg tablet 1,000 mg PO Q6H PRN 05/03/21 05/03/21 05/09/21 History ferrous sulfate 28 mg iron tablet 28 mg PO DAILY 05/03/21 05/03/21 05/08/21 History Exam Exam Date and Time: May 05, 2021 0910 Height,Weight and Vital Signs: Height 5 ft 6 in Weight 70.307 kg Pertinent Lab Results Pertinent Lab Results: Laboratory Tests 02/22/21 02/22/21 16:02 16:02 WBC 6.2 Hgb 14.0 Hct 43.2 Plt Count 200 Sodium 142 Potassium 4.3 Chloride 104 Carbon Dioxide 30 H BUN 16 Creatinine 0.75 Assessment and Plan Assessment Anesthesia Assessment: Chart Reviewed Documented by User: Jacklyn Valente MD 05/09/21 11:42 PMFSH Past Medical History Medical History Anemia Anxiety Arthritis Asthma-COPD overlap syndrome GERD (gastroesophageal reflux disease) Hiatal hernia History of kidney stones Hx of radiation therapy Hyperparathyroidism Lung cancer PONV (postoperative nausea and vomiting) Proctitis Pulmonary hypertension Slow to wake up after anesthesia Family History Family History Mother Breast cancer Surgical History Surgical History History of esophagogastroduodenoscopy History of lithotripsy History of lobectomy of lung History of lumpectomy of both breasts History of right inguinal hernia repair Hx of colonoscopy Hx of varicose vein ligation and stripping History of Problems with Anesthesia: No Social History Social History Are you a primary hearing healthcare practitioner to a significant other at home: Yes (sister with Down's dementia) Do you presently have visiting nurse or other home services: No Patient Tobacco Use Status: Former Tobacco user Quit Date: 1998 Tobacco use type: Cigarette Use of substances other than those prescribed or required for medical reasons: No Have you been hit, kicked, punched, or otherwise hurt by someone within the past year? If so, by whom?: No Are you DNR?: No Advance Directives: No Advance Directives Information Provided: No Advance Directives on File: No Meds Allergies Allergy/AdvReac Type Severity Reaction Status Date / Time codeine Allergy Severe nausea Verified 05/03/21 14:37 Penicillins Allergy Severe Anaphylaxis Verified 05/03/21 14:37 sulfamethoxazole Allergy Severe HIVES/RASH/ Verified 05/03/21 14:37 [From BACTRIM] SWELLING Home Medications Medication Instructions Recorded Confirmed Last Taken Type alprazolam 0.25 mg tablet 0.25 mg PO TID PRN 10/06/20 05/03/21 05/09/21 History aspirin 81 mg tablet,delayed 81 mg PO DAILY 10/06/20 05/03/21 05/08/21 History release (Adult Aspirin Regimen) biotin 2,500 mcg capsule 5 mg PO DAILY 10/06/20 05/03/21 Unknown History coconut oil 1,000 mg capsule 1,000 mg PO DAILY 10/06/20 05/03/21 Unknown History hydrochlorothiazide 12.5 mg capsule 37.5 mg PO DAILY 10/06/20 05/03/21 Unknown History mesalamine 1,000 mg rectal 1,000 mg [place] BEDTIME PRN 10/06/20 05/03/21 Unknown History suppository multivitamin 1 tab PO DAILY 10/06/20 05/03/21 Unknown History omeprazole 20 mg capsule,delayed 20 mg PO BID 10/06/20 05/03/21 05/09/21 History release tamoxifen 20 mg tablet 20 mg PO DAILY 10/06/20 05/03/21 04/29/21 08:00 History clobetasol 0.05 % topical ointment g TOPICAL 12/06/20 04/27/21 Unknown History acetaminophen 500 mg tablet 1,000 mg PO Q6H PRN 05/03/21 05/03/21 05/09/21 History ferrous sulfate 28 mg iron tablet 28 mg PO DAILY 05/03/21 05/03/21 05/08/21 History Exam Airway Mallampati Class: II TM Dist: >3cm Neck ROM: Full Denture: Upper Partial: Lower Loose/Missing/Broken Teeth: Yes, Upper and Lower Heart: RRR Lungs: CTA Assessment and Plan Assessment Anesthesia Assessment: Anesthesia Plan Discussed Final Anesthetic Review History of Problems with Anesthesia: No NPO: Yes ASA Class: III Final Preanesthetic Review: Meds/Allgs Chart Reviewed, Consent Obtained/Reviewed and Anes Risks/Benef Reviewed Patient Risk: Intermediate Procedure Risk: Low Anesthetic Plan Anesthetic Plan: GA Disposition: Standard PACU
[2021-05-09] VITALS (11 sets, daily range): BP systolic 144–179; BP diastolic 56–76; PULSE 76–86; RESP 16–20; TEMP 36.5–36.9; O2SAT 95–100
--- NOTE | ~2021-05-09 | NM_ITS ---
EXAMINATION: NM LYMPHOSCINTIGRAPHY BREAST, LEFT CLINICAL INFORMATION: Recent diagnosis invasive ductal cancer left breast. COMPARISON: Mammography 03/11/2021, 03/24/2021, ultrasound left breast 03/11/2021, ultrasound-guided left breast biopsy 03/24/2021, ultrasound-guided left breast needle localization 05/09/2021. TECHNIQUE: Informed consent was obtained prior to the exam. Lidocaine gel administered to areola within 60 minutes of the procedure. Technetium 99m-Lymphoseek 0.5 mCi was divided into 4 syringes with intradermal administration at 4 quadrants around the areola. The patient tolerated the procedure well. Imaging is performed in 3 views within 30 minutes of injection. FINDINGS: There is strong activity around the areola. There is a single focus of activity at the low axillary tail. NM/NM sentinel node w imaging IMPRESSION: Status post breast radionuclide lymphoscintigraphy for sentinel lymph node mapping.
--- NOTE | ~2021-05-09 | MM_ITS ---
EXAMINATION: US ULTRASOUND-GUIDED NEEDLE LOCALIZATION BREAST, LEFT MM DIGITAL MAMMOGRAPHY BREAST POST LOCALIZATION, LEFT NEEDLE LOCALIZATION SPECIMEN RADIOGRAPH FROM THE LEFT BREAST CLINICAL INFORMATION: Recent diagnosis invasive ductal cancer left breast posterior 6:00 position. COMPARISON: Mammography 03/11/2021, 03/24/2021, ultrasound left breast 03/11/2021, ultrasound-guided biopsy left breast 03/24/2021 TECHNIQUE NEEDLE LOC: Proper informed consent is obtained from the patient after discussion of the procedure, potential risks and complications, and alternatives including declining the procedure today. Patient was given an opportunity for questions. The patient appeared to understand. The patient consented to the procedure and signed the consent form. GUIDANCE: Real time ultrasound guidance APPROACH: Lateral Medial TARGET: Subcentimeter hypoechoic nodule with HydroMARK biopsy clip marker posterior inferior left breast ANESTHESIA: 8 cc carbonated lidocaine 1% LOCALIZATION MARKER: [place] MammaLok 5 cm length. The skin is prepped and local anesthesia administered. The needle is positioned and position assessed with real time ultrasound. The wire is hooked into position. [place] needle protector placed. The patient tolerated the procedure well and had no immediate complication. Following the procedure, 1% lidocaine ointment was administered to the left areola and covered with Tegaderm in anticipation of nuclear lymphoscintigraphy injection for sentinel lymph node mapping. Preliminary results called to medical assisting program director ([place]) for Dr. Castaneda. POSTPROCEDURE UNILATERAL DIGITAL MAMMOGRAM: Mammography is performed using digital mammography in CC view. There are scattered areas of fibroglandular density (ACR BI-RADS breast composition Category b). The localization needle is seen overlying the lesion with wire hooked in expected position just distal to the lesion. TECHNIQUE SPECIMEN RADIOGRAPH: Single radiograph of the excised breast tissue is performed. FINDINGS SPECIMEN RADIOGRAPH: The specimen shows the proximal needle and hookwire are surgically sectioned prior to specimen delivery. The distal needle and hookwire are delivered intact within the specimen. The biopsy clip marker is identified in the specimen. Results were called to Dr. Zay Castaneda in the operating room at the time of imaging. MM/MM diagnostic mammo unilat LT IMPRESSION: 1. Status post ultrasound-guided left breast needle localization with wire hooked into position. 2. Postoperative specimen radiograph obtained.
[2021-05-09] MEDS: Lactated Ringers 1,000 ML 100 ML IVCONT (07:36)
[2021-05-09] MEDS: Scopolamine 1.5 MG PATCH.TD.3 TRANSDERMA (07:36)
--- NOTE | 2021-05-09 07:49 | MHC.SHP ---
Pre-Procedural Eval Section A Date of Service: 05/09/21 The patient is an INPATIENT: No Changes since office visit: Yes Patient answered all questions; No Cold of Flu in the past 2 weeks, No New Medical Problems and No Changes in Medication The History & Physical has been completed within 30 days and I have reviewed it.: Yes Section B Chief Complaint: Invasive ductal carcinoma of left breast Allergies: Allergies Allergy/AdvReac Type Severity Reaction Status Date / Time codeine Allergy Severe nausea Verified 05/03/21 14:37 Penicillins Allergy Severe Anaphylaxis Verified 05/03/21 14:37 sulfamethoxazole Allergy Severe HIVES/RASH/ Verified 05/03/21 14:37 [From BACTRIM] SWELLING Plan Diagnosis/Plan: Unchanged I have reviewed the history and physical and performed a pertinent physical examination on my patient. No changes have occurred unless specified.
[2021-05-09] MEDS: Lidocaine HCl 1 % 20 ML VIAL 9 ML SUBCUT (09:33)
[2021-05-09] MEDS: Sodium Bicarbonate 8.4% 50 MEQ/50 ML VIAL SUBCUT (09:35)
[2021-05-09] MEDS: vancomycin HCL 1,000 MG in 0.9 % Sodium Chloride 250 ML 270 MG IV (10:47)
--- NOTE | 2021-05-09 12:33 | W.PM.OPN ---
Operative Note Operative Note Date of Service: 05/09/21 Narrative: Preoperative diagnosis: invasive ductal carcinoma left breast, recurrent Postoperative diagnosis: same Procedure: left breast lumpectomy with needle localization, left axillary sentinel node biopsy Surgeon: Zay Castaneda MD Slot Technician: Sanna Hilario PA-C Anesthesia: general LMA Indications for procedure: 71-year-old female patient presenting with a previous history of left breast carcinoma status post lumpectomy with radiation therapy now presenting with a new density noted on recent mammogram and confirmed by ultrasound. She underwent ultrasound-guided core biopsy which revealed a new invasive ductal carcinoma located at the 6 o'clock position. modified radical mastectomy was recommended however the patient refused proceed with this and is requested lumpectomy. She understands that she cannot undergo radiation therapy for 2nd time and is willing to take the risk of recurrence breast cancer. Operative findings: Palpable mass noted in the 6 o'clock position of the left breast with localizing needle present. Several palpable enlarged lymph nodes were noted in the left axilla which corresponded to the radioactive nodes. Specimen: Left breast lumpectomy, sentinel node 1, 2, and 3. Estimated blood loss: 10 mL Complications: None Procedure details: Patient was brought to the OR placed in a supine position. After administering general anesthesia the patient's left breast was prepped with ChloraPrep and draped in a sterile fashion. A surgical time-out was called the consent confirmed. Patient received preoperative antibiotics and Venodyne boots were placed. Local anesthesia consisting of 0.5% Sensorcaine without epinephrine was infiltrated in the left breast around the localizing needle. A curvilinear incision was made over the needle tip in a transverse fashion. This was carried down through subcutaneous tissue. Superior and inferior skin flaps were then created with electrocautery. Electrocautery was then used to dissect around the localizing needle beginning at the medial margin and continuing on the superior, inferior, medial, and posterior margins. Dissection was continued down to chest wall included some of the pectoralis muscle. The specimen was passed off the table and sent to pathology for immediate post and specimen x-ray. Attention was then directed to the left axilla. A gamma probe was used to identify the area of increased activity. The most activity was noted in the anterior superior axilla. A curvilinear incision was made over the lateral pectoralis muscle in the upper axilla. This was carried out through subcutaneous tissue past clavipectoral fascia into the axillary compartment. There was scar tissue from the patient's previous carried section the gamma probe was used to localize the area of increased activity. This was identified and a palpable node identified. Was grasped with an Allis clamp and dissected free using electrocautery and blunt dissection. Hemostasis was assured using electrocautery and free ties of 3-0 Polysorb. Three sentinel nodes were identified and sent separately. No additional radio activity was identified and no further palpable nodes could be identified in the level 1 level to regions. Hemostasis was again assured using electrocautery. A pectoral fascia was reapproximated using interrupted 3-0 Polysorb sutures. Dermis was reapproximated using interrupted 3-0 Polysorb sutures and skin was closed using a running subcuticular 4-0 Polysorb suture. Attention was then directed to the left breast incision. Once confirmation was received from both radiology and pathology of inappropriate specimen the deep breast tissue was reapproximated using interrupted 3-0 Polysorb sutures. Skin was reapproximated using interrupted 3-0 Polysorb sutures in dermis. Skin was closed using a running subcuticular 4-0 Polysorb suture. Steri-Strips 2 x 2 gauze and Tegaderm were then applied in both incisions. The patient tolerated the procedure well. Sponge, instrument, and needle counts reported as correct. She was transferred to PACU in stable condition. Breast [employer] Node Biopsy Substrate(s) used for sentinel node biopsy in the non-neoadjuvant setting: Radiotracer Substrate(s) used for sentinel node biopsy in the neoadjuvant setting: N/A All colored nodes or non-colored nodes present at the end of a dye filled lymphatic channel were removed, if dye was used as the substrate for localization: N/A All significantly radioactive nodes were removed, if radionuclide was used as the substrate for localization: Yes All palpably suspicious nodes were removed, if present: Yes If clips were placed in pathology-involved nodes, those nodes were identified and removed: N/A General Surg. - Synoptic Notes Breast [employer] Node Biopsy Substrate(s) used for sentinel node biopsy in the non-neoadjuvant setting: Radiotracer Substrate(s) used for sentinel node biopsy in the neoadjuvant setting: N/A All colored nodes or non-colored nodes present at the end of a dye filled lymphatic channel were removed, if dye was used as the substrate for localization: N/A All significantly radioactive nodes were removed, if radionuclide was used as the substrate for localization: Yes All palpably suspicious nodes were removed, if present: Yes If clips were placed in pathology-involved nodes, those nodes were identified and removed: N/A
[2021-05-09] MEDS: ondansetron HCL 4 MG/2 ML VIAL IVPUSH (13:14)
== END 2021-05-09 15:48 | disposition home or self-care (01) ==
PROVIDERS: PCP Internal Medicine; Visit Provider Surgery
PROC: (CPT 19301; principal; 2021-05-09 11:00)
PROC: (CPT 19301; 2021-05-09 11:00)
PROC: (CPT 19301; 2021-05-09 11:00)
DX: C50.912 Malignant neoplasm of unspecified site of left female breast (principal); Z17.0 Estrogen receptor positive status [ER+]; Z85.3 Personal history of malignant neoplasm of breast; Z85.118 Personal history of other malignant neoplasm of bronchus and lung; Z92.3 Personal history of irradiation; F41.1 Generalized anxiety disorder; J44.9 Chronic obstructive pulmonary disease, unspecified; D64.9 Anemia, unspecified; K21.9 Gastro-esophageal reflux disease without esophagitis; K62.89 Other specified diseases of anus and rectum; E21.3 Hyperparathyroidism, unspecified; I27.20 Pulmonary hypertension, unspecified; Z79.810 Long term (current) use of selective estrogen receptor modulators (SERMs); Z79.82 Long term (current) use of aspirin; Z79.51 Long term (current) use of inhaled steroids; Z79.899 Other long term (current) drug therapy; Z88.0 Allergy status to penicillin; Z88.2 Allergy status to sulfonamides; Z88.8 Allergy status to other drugs, medicaments and biological substances
CPT/HCPCS: 19301; 38525; 19285; 77065; 78195; 88307; 88329; 88341; 88342; 88360; A4648; A9520; J2250; J2405; J2550; J3010; J3370

== ENCOUNTER → 2021-05-17 08:57 | Outpatient (BNVA) | payer MEDICARE, SELFPAY | PROVIDERS: PCP Internal Medicine; Referring Provider Internal Medicine; Visit Provider Surgery | DX: Z48.3 Aftercare following surgery for neoplasm (principal); C50.912 Malignant neoplasm of unspecified site of left female breast | CPT/HCPCS: 99212 ==

== ENCOUNTER → 2021-05-20 11:45 | Outpatient (BNVA) | payer MEDICARE, SELFPAY | PROVIDERS: PCP Internal Medicine; Referring Provider Internal Medicine; Visit Provider Surgery | DX: Z48.3 Aftercare following surgery for neoplasm (principal); L76.32 Postprocedural hematoma of skin and subcutaneous tissue following other procedure; C50.911 Malignant neoplasm of unspecified site of right female breast; C50.912 Malignant neoplasm of unspecified site of left female breast | CPT/HCPCS: 10021; 99212 ==

== ENCOUNTER → 2021-06-02 14:47 | Outpatient (BNVA) | payer MEDICARE, SELFPAY | PROVIDERS: PCP Internal Medicine; Referring Provider Internal Medicine; Visit Provider Surgery ==

== ENCOUNTER → 2021-07-05 14:09 | Outpatient (BNVA) | payer MEDICARE, SELFPAY | PROVIDERS: PCP Internal Medicine; Referring Provider Internal Medicine; Visit Provider Surgery | DX: Z48.3 Aftercare following surgery for neoplasm (principal); C50.912 Malignant neoplasm of unspecified site of left female breast; C50.911 Malignant neoplasm of unspecified site of right female breast | CPT/HCPCS: 99212 ==

== ENCOUNTER 2021-08-09 15:42 | Outpatient (REF) | payer MEDICARE, SELFPAY ==
--- NOTE | ~2021-08-09 | XR_ITS ---
EXAMINATION: XR FOOT, RIGHT XR FOOT, LEFT CLINICAL INFORMATION: Psoriatic arthritis. COMPARISON: Right and left foot MRI dated 04/09/2018. TECHNIQUE: AP, oblique, and lateral views of the right and left foot. FINDINGS: Right Foot: No acute fracture or dislocation. No significant joint space narrowing or marginal osteophytes. Os naviculare. No concerning lytic or blastic osseous lesion. No abnormal soft tissue calcification. Left Foot: No acute fracture or dislocation. No significant joint space narrowing or marginal osteophytes. Os naviculare. No concerning lytic or blastic osseous lesion. No abnormal soft tissue calcification. XR/XR foot LT 2V IMPRESSION: RIGHT FOOT: Unremarkable examination. LEFT FOOT: Unremarkable examination.
--- NOTE | ~2021-08-09 | XR_ITS ---
EXAMINATION: XR FOOT, RIGHT XR FOOT, LEFT CLINICAL INFORMATION: Psoriatic arthritis. COMPARISON: Right and left foot MRI dated 04/09/2018. TECHNIQUE: AP, oblique, and lateral views of the right and left foot. FINDINGS: Right Foot: No acute fracture or dislocation. No significant joint space narrowing or marginal osteophytes. Os naviculare. No concerning lytic or blastic osseous lesion. No abnormal soft tissue calcification. Left Foot: No acute fracture or dislocation. No significant joint space narrowing or marginal osteophytes. Os naviculare. No concerning lytic or blastic osseous lesion. No abnormal soft tissue calcification. XR/XR foot RT 2V IMPRESSION: RIGHT FOOT: Unremarkable examination. LEFT FOOT: Unremarkable examination.
--- NOTE | ~2021-08-09 | XR_ITS ---
EXAMINATION: XR HIPS, BILATERAL XR KNEE, RIGHT XR KNEE, LEFT CLINICAL INFORMATION: Psoriatic arthritis. COMPARISON: None TECHNIQUE: AP of the pelvis as well as AP and frog-leg lateral views of the right and left hip. AP and lateral views of the right and left knee. FINDINGS: RIGHT HIP: No significant joint space narrowing. Tiny lateral acetabular marginal osteophytes. No osseous erosion. No fracture or dislocation. No abnormal soft tissue calcification. LEFT HIP: Mild left sacral iliac joint space narrowing with small inferior marginal osteophytes. Tiny acetabular marginal osteophytes. No osseous erosion. No fracture or dislocation. No abnormal soft tissue calcification. RIGHT KNEE: Mild medial compartment joint space narrowing. No marginal osteophytes. No osseous erosion. No fracture or dislocation. No abnormal soft tissue calcification. No significant joint effusion. LEFT KNEE: Mild medial compartment joint space narrowing with tiny marginal osteophytes. No osseous erosion. No fracture or dislocation. No abnormal soft tissue calcification. No significant joint effusion. XR/XR hips JUAN min 3V IMPRESSION: 1. Minimal right and left hip osteoarthritis. 2. Mild to moderate degenerative arthritis at the left sacroiliac joint. 3. Mild medial compartment osteoarthritis within the right and left knee.
--- NOTE | ~2021-08-09 | XR_ITS ---
EXAMINATION: XR HAND/WRIST, RIGHT XR HAND/WRIST, LEFT CLINICAL INFORMATION: Psoriatic arthritis. COMPARISON: None. TECHNIQUE: AP, oblique, lateral, and scaphoid views of the right and left hand and wrist. FINDINGS: Right hand and wrist: No acute fracture or dislocation. Normal carpal alignment. Mild joint space narrowing at the radiocarpal joint. No significant marginal osteophytes. No osseous erosion. No abnormal soft tissue calcification. No periarticular osteopenia. Left hand and wrist: No acute fracture or dislocation. Normal carpal alignment. Mild joint space narrowing at the radiocarpal joint. No significant marginal osteophytes. No osseous erosion. No abnormal soft tissue calcification. No periarticular osteopenia. XR/XR hand wrist LT IMPRESSION: RIGHT HAND AND WRIST: No acute osseous abnormality. No osseous erosion. Mild degenerative arthritis at the radiocarpal joint. LEFT HAND AND WRIST: No acute osseous abnormality. No osseous erosion. Mild degenerative arthritis at the radiocarpal joint.
--- NOTE | ~2021-08-09 | XR_ITS ---
EXAMINATION: XR HIPS, BILATERAL XR KNEE, RIGHT XR KNEE, LEFT CLINICAL INFORMATION: Psoriatic arthritis. COMPARISON: None TECHNIQUE: AP of the pelvis as well as AP and frog-leg lateral views of the right and left hip. AP and lateral views of the right and left knee. FINDINGS: RIGHT HIP: No significant joint space narrowing. Tiny lateral acetabular marginal osteophytes. No osseous erosion. No fracture or dislocation. No abnormal soft tissue calcification. LEFT HIP: Mild left sacral iliac joint space narrowing with small inferior marginal osteophytes. Tiny acetabular marginal osteophytes. No osseous erosion. No fracture or dislocation. No abnormal soft tissue calcification. RIGHT KNEE: Mild medial compartment joint space narrowing. No marginal osteophytes. No osseous erosion. No fracture or dislocation. No abnormal soft tissue calcification. No significant joint effusion. LEFT KNEE: Mild medial compartment joint space narrowing with tiny marginal osteophytes. No osseous erosion. No fracture or dislocation. No abnormal soft tissue calcification. No significant joint effusion. XR/XR knee RT 2V IMPRESSION: 1. Minimal right and left hip osteoarthritis. 2. Mild to moderate degenerative arthritis at the left sacroiliac joint. 3. Mild medial compartment osteoarthritis within the right and left knee.
--- NOTE | ~2021-08-09 | XR_ITS ---
EXAMINATION: XR HIPS, BILATERAL XR KNEE, RIGHT XR KNEE, LEFT CLINICAL INFORMATION: Psoriatic arthritis. COMPARISON: None TECHNIQUE: AP of the pelvis as well as AP and frog-leg lateral views of the right and left hip. AP and lateral views of the right and left knee. FINDINGS: RIGHT HIP: No significant joint space narrowing. Tiny lateral acetabular marginal osteophytes. No osseous erosion. No fracture or dislocation. No abnormal soft tissue calcification. LEFT HIP: Mild left sacral iliac joint space narrowing with small inferior marginal osteophytes. Tiny acetabular marginal osteophytes. No osseous erosion. No fracture or dislocation. No abnormal soft tissue calcification. RIGHT KNEE: Mild medial compartment joint space narrowing. No marginal osteophytes. No osseous erosion. No fracture or dislocation. No abnormal soft tissue calcification. No significant joint effusion. LEFT KNEE: Mild medial compartment joint space narrowing with tiny marginal osteophytes. No osseous erosion. No fracture or dislocation. No abnormal soft tissue calcification. No significant joint effusion. XR/XR knee LT 2V IMPRESSION: 1. Minimal right and left hip osteoarthritis. 2. Mild to moderate degenerative arthritis at the left sacroiliac joint. 3. Mild medial compartment osteoarthritis within the right and left knee.
--- NOTE | ~2021-08-09 | XR_ITS ---
EXAMINATION: XR HAND/WRIST, RIGHT XR HAND/WRIST, LEFT CLINICAL INFORMATION: Psoriatic arthritis. COMPARISON: None. TECHNIQUE: AP, oblique, lateral, and scaphoid views of the right and left hand and wrist. FINDINGS: Right hand and wrist: No acute fracture or dislocation. Normal carpal alignment. Mild joint space narrowing at the radiocarpal joint. No significant marginal osteophytes. No osseous erosion. No abnormal soft tissue calcification. No periarticular osteopenia. Left hand and wrist: No acute fracture or dislocation. Normal carpal alignment. Mild joint space narrowing at the radiocarpal joint. No significant marginal osteophytes. No osseous erosion. No abnormal soft tissue calcification. No periarticular osteopenia. XR/XR hand wrist RT IMPRESSION: RIGHT HAND AND WRIST: No acute osseous abnormality. No osseous erosion. Mild degenerative arthritis at the radiocarpal joint. LEFT HAND AND WRIST: No acute osseous abnormality. No osseous erosion. Mild degenerative arthritis at the radiocarpal joint.
== END 2021-08-09 15:43 | disposition home or self-care (01) ==
LOC: HO.XRAY 15:42
PROVIDERS: Absent Provider Internal Medicine Medical Oncology; PCP Internal Medicine; Visit Provider Internal Medicine
DX: J44.9 Chronic obstructive pulmonary disease, unspecified (principal); I27.20 Pulmonary hypertension, unspecified; L40.50 Arthropathic psoriasis, unspecified; Z79.899 Other long term (current) drug therapy
CPT/HCPCS: 73110; 73130; 73522; 73560; 73620; 99212

== ENCOUNTER → 2022-04-25 15:26 | Outpatient (BNVA) | payer MEDICARE, SELFPAY | PROVIDERS: PCP Internal Medicine; Visit Provider Surgery | DX: Z48.3 Aftercare following surgery for neoplasm (principal); C50.912 Malignant neoplasm of unspecified site of left female breast; C50.911 Malignant neoplasm of unspecified site of right female breast | CPT/HCPCS: 99212 ==

== ENCOUNTER 2022-05-12 15:17 | Outpatient (REF) | payer MEDICARE, SELFPAY ==
--- NOTE | ~2022-05-12 | MM_ITS ---
EXAMINATION: MM DIAGNOSTIC DIGITAL BREAST TOMOSYNTHESIS, BILATERAL CLINICAL INFORMATION: Bilateral lumpectomies most recent left-sided on 05/09/2021. COMPARISON: Mammography: 03/24/2021 and studies dating back to 01/12/2016. TECHNIQUE: Digital breast tomosynthesis is performed in both the craniocaudal and mediolateral oblique views along with computer-aided detection (CAD). Synthesized 2D images are generated from the tomosynthesis. Additional bilateral spot magnification views in 90 degree mediolateral and craniocaudal projections performed. FINDINGS: There are scattered areas of fibroglandular density (ACR BI-RADS breast composition Category b). There are no new significant masses, abnormal calcifications, or other abnormalities. Bilateral architecture distortion from previous surgery is present as well as a few scattered calcifications with no suspicious grouped calcifications being identified. Results are provided to the patient at time of visit by the technologist. MM/MM tomosynthesis diagnostic BI IMPRESSION: There are no significant changes from prior study. Recommend magnification views of the left breast at next yearly study. ASSESSMENT: BI-RADS 2: Benign. RECOMMENDATION: Diagnostic mammography at time of next annual exam, due in 12 months. This patient's information was entered into a reminder system with a target due date for their next mammogram.
== END 2022-05-12 15:18 | disposition home or self-care (01) ==
LOC: HO.MAMMO 15:17
PROVIDERS: Visit Provider Surgery
DX: Z85.3 Personal history of malignant neoplasm of breast (principal)
CPT/HCPCS: 77062; 77066

== ENCOUNTER 2022-05-22 19:52 | Emergency (ER) | payer MEDICARE, SELFPAY ==
--- NOTE | ~2022-05-22 | CT_ITS ---
EXAMINATION: CT HEAD WITHOUT CONTRAST CLINICAL INFORMATION: Headaches. COMPARISON: None TECHNIQUE: Contiguous axial imaging was performed from the skull base to vertex without intravenous administration of contrast. This CT examination was performed using dose optimization techniques as appropriate, variously including the following: *Automated exposure control *Adjustment of mA and/or kV according to patient size (this includes techniques or standardized protocols for targeted exams where dose is matched to indication/reason for exam; i.e. extremities or head) *Use of iterative reconstruction technique DLP: 610 mGy-cm FINDINGS: There is no acute intra-axial, extra-axial bleed, masses or midline shift. There is no acute infarction in evolution. There is no edema. The lateral ventricles are symmetrical in size but enlarged. Mild prominence of cortical sulci seen. Thomas to white matter differentiation is maintained normal. Bone windows reveal no calvarial abnormality. Bilateral paranasal sinuses and mastoid air cells are well-aerated. There is no scalp soft tissue abnormality. CT/CT head/brain wo IV con IMPRESSION: No acute intracranial process seen.
--- NOTE | ~2022-05-22 | XR_ITS ---
EXAMINATION: XR CHEST CLINICAL INFORMATION: Short of breath COMPARISON: 04/01/2019 TECHNIQUE: Frontal view of the chest was obtained. FINDINGS: Cardiac leads overlie the chest. The lungs are well expanded. There is no focal consolidation, edema, or effusion. No pneumothorax. The cardiomediastinal silhouette is within normal limits of size with a calcified aorta. No acute osseous abnormality. XR/XR chest 1V IMPRESSION: No acute pulmonary disease.
[2022-05-22 20:20] VITALS: BP 111/89; BP 160/78; PULSE 101; PULSE 96; RESP 16; TEMP 36.7; O2SAT 97; BMI 23.1
[2022-05-22 21:17] LABS: Appearance Urine Clear; Color Urine Yellow; Glucose Urine UA Negative (Negative); Leukocyte Esterase Urine Negative (Negative); Nitrite Urine Negative (Negative); Specific Gravity - Urine <= 1.005 (1.005-1.025); UMIC TRIGGER UACC YES; Urine Blood Small (1+) (Negative); Urine Ketones Negative (Negative); Urine Protein Negative (Neg-Trace)
[2022-05-22 21:28] LABS: Bacteria Urine None Seen (None Seen); Hyaline Casts Urine 0-2 /LPF (0-2); RBC Urine 0-2 /HPF (0-2); Squamous Epithelial Cell Urine 0-2 /HPF (0-2); WBC Urine 0-5 /HPF (0-5)
[2022-05-22 21:31] LABS: MANUAL DIFF FLAG NO
[2022-05-22 21:33] LABS: Basophils Absolute Auto 0.1 X10*3/uL (0.0-0.2); Basophils Percent Auto 0.6 % (0-2); Eosinophils Absolute Auto 0.1 X10*3/uL (0.0-0.4); Eosinophils Percent Auto 1.7 % (0-4); Hematocrit 41.1 % (37.0-47.0); Hemoglobin 13.4 g/dl (12.0-16.0); Imm Gran Abs Auto 0.01 X10*3/uL (0.00-0.03); Imm Gran Pct Auto 0.1 % (0.0-0.4); Lymphocytes Absolute Auto 1.8 X10*3/uL (1.2-4.9); Lymphocytes Percent Auto 21.1 % (20-40); Mean Corpuscular HGB Conc 32.6 g/dl (31.0-35.0); Mean Corpuscular Hemoglobin 31.2 pg (27.0-33.0); Mean Corpuscular Volume 95.6 fL (80.0-98.0); Mean Platelet Volume 10.1 fL (9.4-12.3); Monocytes Absolute Auto 0.7 X10*3/uL (0.1-1.2); Monocytes Percent Auto 8.2 % (2-11); Neutrophils Absolute Auto 5.7 x10*3/uL (2.0-8.3); Neutrophils Percent Auto 68.3 % (45-73); Platelet Count 233 X10*3/uL (160-400); White Blood Count 8.4 X10*3/uL (4.8-10.8)
--- NOTE | 2022-05-22 21:42 | ED.GENADULT ---
HPI - General Adult General Chief complaint: Headache Stated complaint: AGUILAR and nausea per EMS Time Seen by Provider: 05/22/22 21:26 Source: patient Mode of arrival: ambulatory Limitations: no limitations History of Present Illness HPI narrative: With 72-year-old female who is very pleasant and also felt to be an anxious person came in for evaluation of intermittent headache for the past month also patient been having spells of dizziness that make her unbalanced patient never had a fall because of the dizziness, patient also been having intermittent shortness of breath but no fever or chills, no flu-like symptoms. No CP, no gaining weight or worsening of the lower extremities edema. Patient takes 20 mg of Lasix daily by mistake took half of the dose that she is supposed to take for the past 2 days. Related Data Home Medications Medication Instructions Recorded Confirmed alprazolam 0.25 mg tablet 0.25 mg PO TID PRN Anxiety 10/06/20 04/27/22 aspirin 81 mg tablet,delayed 81 mg PO DAILY 10/06/20 04/27/22 release (Adult Aspirin Regimen) biotin 2,500 mcg capsule 5 mg PO DAILY 10/06/20 04/27/22 coconut oil 1,000 mg capsule 1,000 mg PO DAILY 10/06/20 04/27/22 hydrochlorothiazide 12.5 mg capsule 37.5 mg PO DAILY 10/06/20 04/27/22 mesalamine 1,000 mg rectal 1,[address] BEDTIME PRN Rectal 10/06/20 04/27/22 suppository Discomfort multivitamin 1 tab PO DAILY 10/06/20 04/27/22 omeprazole 20 mg capsule,delayed 20 mg PO BID 10/06/20 04/27/22 release clobetasol 0.05 % topical ointment g topical 12/06/20 04/27/22 acetaminophen 500 mg tablet 1,000 mg PO Q6H PRN Pain 05/03/21 04/27/22 ferrous sulfate 28 mg iron tablet 28 mg PO DAILY 05/03/21 04/27/22 furosemide 20 mg tablet 20 mg PO DAILY 08/09/21 04/27/22 letrozole 2.5 mg tablet 2.5 mg PO DAILY 08/09/21 04/27/22 Previous Rx's Medication Instructions Recorded fluticasone 250 mcg-salmeterol 50 1 inh inhalation BID #60 ea 12/16/21 mcg/dose blistr powdr for inhalation (Wixela Inhub) albuterol sulfate 90 mcg/actuation 2 puff inhalation Q4-6H PRN for 02/06/22 aerosol inhaler wheezing #6.7 ea nirmatrelvir 300 mg (150 mg See Rx Instructions PO .COMPLEX 02/06/22 x2)-ritonavir 100 mg tablet,dose COVID-19 5 days #30 ea pack(EUA) (Paxlovid) albuterol sulfate 1.25 mg/3 mL 2.5 mg (6 mL) inhalation Q4-6H PRN 02/07/22 solution for nebulization shortness of breath or wheezing 30 days #90 mL Allergies Allergy/AdvReac Type Severity Reaction Status Date / Time codeine Allergy Severe nausea Verified 04/25/22 15:39 Penicillins Allergy Severe Anaphylaxis Verified 04/25/22 15:39 sulfamethoxazole Allergy Severe HIVES/RASH/ Verified 04/25/22 15:39 [From BACTRIM] SWELLING Review of Systems Review of Systems: All other systems are reviewed and are negative Constitutional: Reports as per HPI and Reports no additional constitutional complaints Eyes: Reports as per HPI and Reports no additional eye complaints Reports system reviewed and no additional complaints, except as documented Cardiovascular: Reports as per HPI and Reports no additional cardiovascular complaints Respiratory: Reports as per HPI and Reports no additional respiratory complaints Gastrointestinal: Reports as per HPI and Reports no additional gastrointestinal complaints Genitourinary: Reports no additional female genitourinary complaints Musculoskeletal: Reports no additional musculoskeletal complaints Skin/Breast: Reports system reviewed and no additional complaints, except as docu Psychiatric: Reports no additional psychiatric complaints Endocrine: Reports no additional endocrine complaints Hematologic/Lymphatic: Reports no additional hematologic/lymphatic complaints Allergic/Immunologic: Reports no additional allergic/immunologic complaints Reports system reviewed and no additional complaints, except as documented and Reports Abnormal speech present [facility] Past Medical History Medical History Anemia Anxiety Arthritis Asthma-COPD overlap syndrome GERD (gastroesophageal reflux disease) Hiatal hernia History of kidney stones Hx of radiation therapy Hyperparathyroidism Lung cancer PONV (postoperative nausea and vomiting) Proctitis Pulmonary hypertension Slow to wake up after anesthesia Surgical History History of esophagogastroduodenoscopy History of lithotripsy History of lobectomy of lung History of lumpectomy of both breasts History of right inguinal hernia repair Hx of colonoscopy Hx of varicose vein ligation and stripping Family History Family History Mother Breast cancer Social History Social History Are you a primary urgent care nurse practitioner to a significant other at home: Yes (sister with Down's dementia) Do you presently have visiting nurse or other home services: No Patient Tobacco Use Status: Former Tobacco user Quit Date: 1998 Tobacco use type: Cigarette Advance Directives: No Advance Directives Information Provided: Yes Physical Exam ED Vital Signs: Vital Signs - 24 hr 05/22/22 20:20 05/22/22 23:24 Temperature 98.1 F 98.2 F Pulse Rate 101 H 97 Respiratory Rate 16 23 H Blood Pressure 111/89 156/61 H Pulse Oximetry 97 96 Oxygen Delivery Method Room Air Room Air BMI result Body Mass Index 23.1 Vital signs have been reviewed as appeared to be correct. Blood pressure normal. Heart rate normal. Respiration rate normal. Temperature normal. Oxygen saturation normal. Appearance: Alert. Oriented X3. No acute distress. Head: Normal external exam. Normocephalic. Atraumatic. No Costello signs noted. No raccoon eyes noted Eyes: PERRLA. EOMI. Conjunctiva and sclera normal. Eyelids normal. ENT: TM's Normal. Pharynx normal. Uvula midline. Moist mucous membranes. No trismus noted. No drooling noted. No muffled voice noted. Neck: Normal inspection. Neck supple. FROM. No adenopathy. Thyroid Normal. No meningeal signs. No neck mass noted. CVS: Normal heart rate and rhythm. Heart sound normal. No murmurs noted. Pulses normal throughout. Respiratory: No respiratory distress. Painless inspiration. Breath sounds normal. No wheezes/rales/rhonchi noted. Chest nontender. No accessory muscle usage noted or decreased air movement noted. Abdomen: Soft and nontender. Bowel sounds normal in all 4 quadrants. No distention noted. No organomegaly noted. No visible injury noted. Back: No CVA tenderness. Full range of motion noted. Skin: Skin warm and dry. Normal skin color. Normal skin turgor. No rashes/lesions/lacerations noted. Extremities: No lower extremity edema. Extremities exhibit normal range of motion. Extremities nontender. Neuro: Oriented X 3. Cranial nerve exam: II-XII are grossly intact No motor deficit. No sensory deficit. Reflexes normal. Course Course Course Narrative: 72-year-old female came in with multiple symptoms including nonspecific dizziness for a month on and off, physical exam/history/labs/head CT is just remarkable for mild hypokalemia that was repleted in the emergency department patient takes Lasix at home was instructed to eat 1 banana a day to replete her potassium. Patient is not in CHF. With a negative upper respiratory viral panel. Medications Administered Discontinued Medications Generic Name Dose Route Start Last Admin Trade Name Freq PRN Reason Stop Dose Admin Potassium Chloride 10 meq in 100 mls @ 100 mls/hr 05/22/22 22:16 05/22/22 23:47 Potassium Chloride/H20 IV 05/22/22 23:15 100 mls/hr ONCE ONE Administration Potassium Chloride 40 meq 05/22/22 22:16 05/22/22 23:17 Potassium Chloride Packet 20 Meq Packet PO 05/22/22 22:17 40 meq ONCE ONE Administration Medical Decision Making Differential Diagnosis Differential Diagnoses: The differential diagnosis associated with the presentation includes (Dehydration, congestive heart failure, pneumonia, viral infection, anxiety.) Lab Data MDM Lab Attestation statement: I reviewed the patient's lab results. 05/22/22 21:27 05/22/22 21:27 Labs: Lab Results 05/22/22 05/22/22 05/22/22 Range/Units 21: 21:27 21:27 WBC 8.4 (4.8-10.8) X10*3/uL RBC 4.30 (4.20-5.50) X10*6/uL Hgb 13.4 (12.0-16.0) g/dl Hct 41.1 (37.0-47.0) % MCV 95.6 (80.0-98.0) fL MCH 31.2 (27.0-33.0) pg MCHC 32.6 (31.0-35.0) g/dl RDW 13.0 (11.0-16.0) % Plt Count 233 (160-400) X10*3/uL MPV 10.1 (9.4-12.3) fL Immature Gran % (Auto) 0.1 (0.0-0.4) % Neut % (Auto) 68.3 (45-73) % Lymph % (Auto) 21.1 (20-40) % [place] % (Auto) 8.2 (2-11) % Eos % (Auto) 1.7 (0-4) % Baso % (Auto) 0.6 (0-2) % Lymph # (Auto) 1.8 (1.2-4.9) X10*3/uL [place] # (Auto) 0.7 (0.1-1.2) X10*3/uL Eos # (Auto) 0.1 (0.0-0.4) X10*3/uL Baso # (Auto) 0.1 (0.0-0.2) X10*3/uL Abs Immat Gran (auto) 0.01 (0.00-0.03) X10*3/uL Absolute Neuts (auto) 5.7 (2.0-8.3) x10*3/uL Absolute Nucleated RBC 0.000 (0.0-0.012) X10*3/uL Nucleated RBC % (auto) 0.0 (0.0-0.2) /100WBC Sodium 142 (135-145) mmol/L Potassium 3.1 L D (3.3-5.1) mmol/L Chloride 103 (96-108) mmol/L Carbon Dioxide 32 H (22-29) mmol/L Anion Gap 10 L (12-20) BUN 16 (9-16) mg/dL Creatinine 0.70 (0.5-1.4) mg/dL Estim Creat Clear Calc 67.0 Estimated GFR > 60 Random Glucose 110 (60-115) mg/dL Calcium 10.1 (8.4-10.2) mg/dL Total Bilirubin 0.4 (0.0-1.0) mg/dL AST 20 (5-31) U/L ALT 25 (0-31) U/L Alkaline Phosphatase 81 (39-117) U/L Troponin I High Sens (<3.5-17.0) ng/L B-Natriuretic Peptide (<100) pg/mL Total Protein 6.0 L (6.5-8.0) g/dL Albumin 3.8 (3.5-5.0) g/dL Urine Color Yellow Urine Appearance Clear Urine pH 7.0 (5.0-9.0) Ur Specific Blackwell <= 1.005 (1.005-1.025) Urine Protein Negative (Neg-Trace) mg/dL Urine Glucose (UA) Negative (Negative) mg/dL Urine Ketones Negative (Negative) mg/dL Urine Blood Small (1+) H (Negative) Urine Nitrite Negative (Negative) Ur Leukocyte Esterase Negative (Negative) Urine RBC 0-2 (0-2) /HPF Urine WBC 0-5 (0-5) /HPF Ur Squamous Epith Cells 0-2 (0-2) /HPF Urine Bacteria None Seen (None Seen) Hyaline Casts 0-2 (0-2) /LPF 05/22/22 05/22/22 Range/Units 22:17 22:17 WBC (4.8-10.8) X10*3/uL RBC (4.20-5.50) X10*6/uL Hgb (12.0-16.0) g/dl Hct (37.0-47.0) % MCV (80.0-98.0) fL MCH (27.0-33.0) pg MCHC (31.0-35.0) g/dl RDW (11.0-16.0) % Plt Count (160-400) X10*3/uL MPV (9.4-12.3) fL Immature Gran % (Auto) (0.0-0.4) % Neut % (Auto) (45-73) % Lymph % (Auto) (20-40) % [place] % (Auto) (2-11) % Eos % (Auto) (0-4) % Baso % (Auto) (0-2) % Lymph # (Auto) (1.2-4.9) X10*3/uL [place] # (Auto) (0.1-1.2) X10*3/uL Eos # (Auto) (0.0-0.4) X10*3/uL Baso # (Auto) (0.0-0.2) X10*3/uL Abs Immat Gran (auto) (0.00-0.03) X10*3/uL Absolute Neuts (auto) (2.0-8.3) x10*3/uL Absolute Nucleated RBC (0.0-0.012) X10*3/uL Nucleated RBC % (auto) (0.0-0.2) /100WBC Sodium (135-145) mmol/L Potassium (3.3-5.1) mmol/L Chloride (96-108) mmol/L Carbon Dioxide (22-29) mmol/L Anion Gap (12-20) BUN (9-16) mg/dL Creatinine (0.5-1.4) mg/dL Estim Creat Clear Calc Estimated GFR Random Glucose (60-115) mg/dL Calcium (8.4-10.2) mg/dL Total Bilirubin (0.0-1.0) mg/dL AST (5-31) U/L ALT (0-31) U/L Alkaline Phosphatase (39-117) U/L Troponin I High Sens 6.4 (<3.5-17.0) ng/L B-Natriuretic Peptide 108 H (<100) pg/mL Total Protein (6.5-8.0) g/dL Albumin (3.5-5.0) g/dL Urine Color Urine Appearance Urine pH (5.0-9.0) Ur Specific Black[place] (1.005-1.025) Urine Protein (Neg-Trace) mg/dL Urine Glucose (UA) (Negative) mg/dL Urine Ketones (Negative) mg/dL Urine Blood (Negative) Urine Nitrite (Negative) Ur Leukocyte Esterase (Negative) Urine RBC (0-2) /HPF Urine WBC (0-5) /HPF Ur Squamous Epith Cells (0-2) /HPF Urine Bacteria (None Seen) Hyaline Casts (0-2) /LPF Independent Interpretation I performed an independent interpretation of an: Plain X-Ray (No acute intrathoracic) Radiology Impression Discussion of test interpretation with radiology: I have reviewed the radiologist's reading. Discharge Plan Discharge Clinical Impression: Hypokalemia Patient Disposition: Home, Self-Care Instructions: Hypokalemia (ED) Prescriptions: No Action fluticasone propion-salmeterol [Wixela Inhub] 250-50 mcg/dose blister with device 1 inh inhalation BID Qty: 60 3RF Paxlovid (EUA) 300 mg (150 mg x 2)-100 mg tablets,dose pack See Rx Instructions PO .COMPLEX 5 Days Qty: 30 0RF Rx Instructions: take TWO 150 mg tablets of nirmatrelvir with ONE 100 mg tablet of ritonavir twice daily for 5 days PO albuterol sulfate 90 mcg/actuation HFA aerosol inhaler 2 puff inhalation Q4-6H PRN (Reason: for wheezing) Qty: 6.7 2RF albuterol sulfate 1.25 mg/3 mL solution for nebulization 2.5 mg inhalation Q4-6H PRN (Reason: shortness of breath or wheezing) 30 Days Qty: 90 2RF ferrous sulfate 28 mg iron Tablet 28 mg PO DAILY acetaminophen 500 mg Tablet 1,000 mg PO Q6H PRN (Reason: Pain) clobetasol 0.05 % ointment topical alprazolam 0.25 mg tablet 0.25 mg PO TID PRN (Reason: Anxiety) omeprazole 20 mg capsule,delayed release(DR/EC) 20 mg PO BID mesalamine 1,000 mg suppository 1,[address] BEDTIME PRN (Reason: Rectal Discomfort) hydrochlorothiazide 12.5 mg capsule 37.5 mg PO DAILY aspirin [Adult Aspirin Regimen] 81 mg tablet,delayed release (DR/EC) 81 mg PO DAILY biotin 2,500 mcg capsule 5 mg PO DAILY multivitamin Tablet 1 tab PO DAILY coconut oil 1,000 mg capsule 1,000 mg PO DAILY letrozole 2.5 mg tablet 2.5 mg PO DAILY furosemide 20 mg tablet 20 mg PO DAILY Referrals: Joseph Valencia MD [Primary Care Provider] -
[2022-05-22 21:53] LABS: Alanine Aminotransferase 25 U/L (0-31); Albumin Level 3.8 g/dL (3.5-5.0); Alkaline Phosphatase 81 U/L (39-117); Anion Gap 10 (12-20); Aspartate Amino Transferase 20 U/L (5-31); Bilirubin Total 0.4 mg/dL (0.0-1.0); Blood Urea Nitrogen 16 mg/dL (9-16); Calcium 10.1 mg/dL (8.4-10.2); Carbon Dioxide 32 mmol/L (22-29); Chloride 103 mmol/L (96-108); Estimated Glomerular Filt Rate > 60; Glucose Random 110 mg/dL (60-115); Potassium 3.1 mmol/L (3.3-5.1); Sodium 142 mmol/L (135-145)
[2022-05-22 22:47] LABS: B Type Natriuretic Peptide 108 pg/mL (<100)
[2022-05-22 22:48] LABS: Troponin-I High Sensitivity 6.4 ng/L (<3.5-17.0)
[2022-05-22] MEDS: Potassium Chloride Packet 20 MEQ PACKET 40 MEQ PO (23:17)
[2022-05-22 23:24] VITALS: BP 156/61; PULSE 97; RESP 23; TEMP 36.8; O2SAT 96
[2022-05-22] MEDS: Potassium Chloride/H20 10 MEQ/100 ML PIGGYBACK 100 MEQ IV (23:47)
[2022-05-23 01:04] LABS: Influenza A PCR NEGATIVE (Negative); Influenza B PCR NEGATIVE (Negative); Resp Syncy Virus RNA Qual PCR NEGATIVE (Negative); SARS COV2 PCR INHOUSE NEGATIVE (Negative)
--- NOTE | 2022-05-23 02:36 | PC.NURSE ---
I assumed care of Eliza upon her arrival to bed 15 from EMS. She arrived for evaluation of weakness, unsteadiness, decreased PO intake. The pt seems to chalk all of her ailments up to stress in her life. She denies the following: chest pain, SOB, nausea, vomiting, unilateral weakness, speech disturbances. Since she arrived she has ambulated to and from the bathroom multiple times independently and with slow but steady gait. The pt has very noticeable curvature f her spine in her upper back and neck. This is not a new problem, per the pt. Pt has been discharged at this time. 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 She verbalized an understanding of all DC orders.
== END 2022-05-23 02:41 | disposition home or self-care (01) ==
PROVIDERS: Emergency Provider Emergency Medicine; PCP Internal Medicine
DX: E87.6 Hypokalemia (principal); R06.02 Shortness of breath; I10 Essential (primary) hypertension; Z87.891 Personal history of nicotine dependence; Z20.822 Contact with and (suspected) exposure to COVID-19; Z20.828 Contact with and (suspected) exposure to other viral communicable diseases; Z79.82 Long term (current) use of aspirin; Z79.899 Other long term (current) drug therapy
CPT/HCPCS: 0241U; 36415; 70450; 71045; 80053; 81001; 83880; 84484; 85025; 96365; 99283; 99284

== ENCOUNTER → 2022-06-16 16:24 | Outpatient (BNVA) | payer MEDICARE, SELFPAY | PROVIDERS: PCP Internal Medicine; Visit Provider Internal Medicine Endocrinology, Diabetes & Metabolism | DX: E83.52 Hypercalcemia (principal); Z79.899 Other long term (current) drug therapy | CPT/HCPCS: 99202 ==

== ENCOUNTER 2022-07-20 16:12 | Outpatient (REF) | payer MEDICARE, SELFPAY ==
[2022-07-20 18:05] LABS: Vitamin D 25-OH Total 52.7 ng/mL (>30)
[2022-07-25 14:53] LABS: Calcium (PTHI) 10.7 mg/dL (8.6-10.4); PTHI 148 pg/mL (16-77)
== END 2022-07-20 16:13 | disposition home or self-care (01) ==
LOC: HO.LAB 16:12
PROVIDERS: PCP Internal Medicine; Visit Provider Internal Medicine Endocrinology, Diabetes & Metabolism
DX: E83.52 Hypercalcemia (principal)
CPT/HCPCS: 36415; 82306; 83970

== ENCOUNTER 2022-07-22 13:37 | Outpatient (REF) | payer MEDICARE, SELFPAY ==
[2022-07-22 15:52] LABS: Total Volume 24 Hour Urine 2200 mL
[2022-07-22 16:04] LABS: Creatinine, mg/dL 44.08
[2022-07-24 19:42] LABS: Calcium, 24 Hr Urine 136 mg/24 h; Calcium/Creatinine Ratio 148 mg/g creat (30-275); Creatinine 24Hr Urine 0.92 g/24 h (0.50-2.15)
== END 2022-07-22 13:38 | disposition home or self-care (01) ==
LOC: HO.HMGCLNP 13:37
PROVIDERS: PCP Internal Medicine Endocrinology, Diabetes & Metabolism; Visit Provider Internal Medicine Endocrinology, Diabetes & Metabolism
DX: E83.52 Hypercalcemia (principal)
CPT/HCPCS: 82340; 82570

== ENCOUNTER 2022-08-03 15:02 | Outpatient (REF) | payer MEDICARE, SELFPAY ==
--- NOTE | ~2022-08-03 | MM_ITS ---
EXAMINATION: BONE DENSITOMETRY CLINICAL INDICATION: Hypercalcemia. COMPARISON: This is the patient's baseline examination. TECHNIQUE: Using a [employer] DXA System (software version: 13.1) manufactured by [employer], dual-energy x-ray absorptiometry was performed of the lumbar spine and left hip and left forearm radius 33%. The images are of good technical quality. Summary results are attached. FINDINGS: AP SPINE L1-L4: BMD 0.956 g/cm2, Z-score -0.1, T-score -1.9, osteopenia. LEFT FEMUR, NECK: BMD 0.632 g/cm2, Z-score -1.1, T-score -2.9, osteoporosis. LEFT FEMUR, TOTAL: BMD 0.656 g/cm2, Z-score -1.1, T-score -2.8, osteoporosis. LEFT FOREARM RADIUS 33%: BMD 0.816 g/cm2, Z-score 1.4, T-score -0.7, normal. IDENTIFIED RISK FACTORS: Height loss, hyperparathyroid, low calcium intake, menopause, thiazide. HISTORY OF FRACTURE: None listed. MEDICATIONS: Vitamin D. MM/XR DEXA appendicular skeleton IMPRESSION: 1. DIAGNOSIS: Osteoporosis based on the lowest T-score value of -2.9 in the femoral neck applying World Health Organization criteria. 2. 10-YEAR FRACTURE RISK PREDICTION, FRAX: According to the guidelines, FRAX calculation should only be performed on patients in the osteopenia bone density category. Therefore, FRAX was not performed on this patient. 3. Treatment Recommendations: NOF guidelines recommend consideration for treatment in postmenopausal women and men age 50 and older presenting with the following: -A hip or vertebral (clinical or morphometric) fracture. -T-score less than or equal to -2.5 at the femoral neck or spine after appropriate evaluation to exclude secondary causes. -Low bone mass at the hip or spine and a 10-year fracture probability by FRAX of greater than or equal to 3% for hip fracture or greater than or equal to 20% for major osteoporotic fracture based on the [place] adapted WHO algorithm. 4. Other Recommendations: All treatment decisions require clinical judgment and consideration of individual patient factors, including patient preferences, comorbidities, previous drug use, risk factors not captured in the FRAX model (e.g. frailty, falls, vitamin D deficiency, increased bone turnover, interval significant decline in bone density) and possible under or overestimation of fracture risk by FRAX. Additional medical evaluation for secondary cause of low bone mineral density may be appropriate. FUTURE SCAN RECOMMENDATION: People with diagnosed cases of osteoporosis or at high risk for fracture should have regular bone mineral density tests. For patients eligible for Medicare, routine testing is allowed once every 2 years. The testing frequency can be increased to one year for patients who have rapidly progressing disease, those who are receiving or discontinuing medical therapy to restore bone mass, or have additional risk factors.
--- NOTE | ~2022-08-03 | US_ITS ---
EXAMINATION: US RETROPERITONEAL LIMITED (RENAL ONLY) CLINICAL INFORMATION: Hypercalcemia. History of hyperparathyroidism. Rule out nephrolithiasis. COMPARISON: Ultrasound abdomen complete 02/19/2020. Ultrasound retroperitoneal limited (renal only) 12/05/2018. X-ray abdomen KUB 10/16/2012. CT abdomen and pelvis without and with contrast 09/17/2012. TECHNIQUE: Real-time imaging of the kidneys. FINDINGS: RIGHT KIDNEY: 10.9 x 4.1 x 8.2 cm (SAG x AP x TRV). The kidney is normal in size, contour, and echogenicity. Renal cortical thickness is normal. No focal parenchymal lesions or hydronephrosis. At the upper pole, a 6 mm nonobstructing calculus is seen, with twinkle artifact. At the interpolar aspect, 5 mm and 6 mm nonobstructing calculi are seen, with twinkle artifact. LEFT KIDNEY: 11.7 x 4.8 x 4.6 cm (SAG x AP x TRV). The kidney is normal in size, contour, and echogenicity. Renal cortical thickness is normal. No focal parenchymal lesions or hydronephrosis. At the lower pole, a 4 mm nonobstructing calculus is seen, with twinkle artifact. US/US renal BI IMPRESSION: Multiple nonobstructing bilateral renal calculi are seen. No hydronephrosis is noted.
== END 2022-08-03 15:03 | disposition home or self-care (01) ==
LOC: HO.MAMMO 15:02
PROVIDERS: PCP Internal Medicine; Visit Provider Internal Medicine Endocrinology, Diabetes & Metabolism
DX: Z13.820 Encounter for screening for osteoporosis (principal); E83.52 Hypercalcemia; Z78.0 Asymptomatic menopausal state
CPT/HCPCS: 76775; 77081

== ENCOUNTER 2022-08-06 08:37 | Emergency (ER) | payer MEDICARE, SELFPAY ==
--- NOTE | ~2022-08-06 | US_ITS ---
EXAMINATION: US VENOUS ULTRASOUND WITH DOPPLER LOWER EXTREMITY, LEFT CLINICAL INFORMATION: Swelling and pain COMPARISON: None available. TECHNIQUE: Ultrasound of the deep veins is performed from the hip to the calf with compression sonography and color and pulse Doppler assessment. Spectral analysis with color-flow imaging is performed. FINDINGS: There is normal venous compression and respiratory variation and augmented flow. The visualized common femoral vein, superficial femoral vein, profunda femoral vein, popliteal vein, and the trifurcation region shows no evidence of deep venous thrombosis. There is no significant popliteal fossa cyst. There are prominent varicose veins in left mid thigh with the largest one measuring 0.6 cm and reflux. If the patient's symptoms persist, followup ultrasound in 5 days 7 days might be of value to exclude proximal propagation from a non-visualized calf vein. US/US venous duplex LE LT IMPRESSION: No DVT demonstrated in the left lower extremity.
--- NOTE | ~2022-08-06 | XR_ITS ---
EXAMINATION: XR TIBIA AND FIBULA, LEFT CLINICAL INFORMATION: Cellulitis. COMPARISON: None available. TECHNIQUE: AP and lateral views of the left tibia and fibula were obtained. FINDINGS: The bones and soft tissues are normal. No fracture. No osseous lesions. XR/XR tibia fibula LT 2V IMPRESSION: Normal left tibia and fibula.
[2022-08-06 08:43] VITALS: BP 160/74; PULSE 84; O2SAT 97
--- NOTE | 2022-08-06 09:08 | ED.LOWEXIN ---
HPI - Extremity Injury (Lower) General Chief Complaint: Skin/Abscess/Foreign Body Stated Complaint: CELLULITIS ? LEGS X2 DAYS PER EMS Time Seen by Provider: 08/06/22 08:56 Source: patient and EMS Mode of arrival: EMS Limitations: no limitations History of Present Illness HPI Narrative: A 72-year-old female came in by ambulance for evaluation of left leg swelling and pain with redness. Symptoms started about 2 days ago declined any fever or chills, no trauma or injury to the left lower extremities, no recent travel or prolonged immobilization. Patient never had skin infection in the past, Related Data Home Medications Medication Instructions Recorded Confirmed alprazolam 0.25 mg tablet 0.25 mg PO TID PRN Anxiety 10/06/20 06/16/22 aspirin 81 mg tablet,delayed 81 mg PO DAILY 10/06/20 06/16/22 release (Adult Aspirin Regimen) biotin 2,500 mcg capsule 5 mg PO DAILY 10/06/20 06/16/22 coconut oil 1,000 mg capsule 1,000 mg PO DAILY 10/06/20 06/16/22 hydrochlorothiazide 12.5 mg capsule 37.5 mg PO DAILY 10/06/20 06/16/22 mesalamine 1,000 mg rectal 1,000 mg FL BEDTIME PRN Rectal 10/06/20 06/16/22 suppository Discomfort multivitamin 1 tab PO DAILY 10/06/20 06/16/22 omeprazole 20 mg capsule,delayed 20 mg PO BID 10/06/20 06/16/22 release clobetasol 0.05 % topical ointment g topical 12/06/20 06/16/22 acetaminophen 500 mg tablet 1,000 mg PO Q6H PRN Pain 05/03/21 06/16/22 ferrous sulfate 28 mg iron tablet 28 mg PO DAILY 05/03/21 06/16/22 furosemide 20 mg tablet 20 mg PO DAILY 08/09/21 06/16/22 letrozole 2.5 mg tablet 2.5 mg PO DAILY 08/09/21 06/16/22 potassium chloride 10 mEq 10 meq PO DAILY 06/16/22 06/16/22 capsule,extended release Previous Rx's Medication Instructions Recorded albuterol sulfate 90 mcg/actuation 2 puff inhalation Q4-6H PRN for 02/06/22 aerosol inhaler wheezing #6.7 ea nirmatrelvir 300 mg (150 mg See Rx Instructions PO .COMPLEX 02/06/22 x2)-ritonavir 100 mg tablet,dose COVID-19 5 days #30 ea pack(EUA) (Paxlovid) albuterol sulfate 1.25 mg/3 mL 2.5 mg (6 mL) inhalation Q4-6H PRN 02/07/22 solution for nebulization shortness of breath or wheezing 30 days #90 mL fluticasone 250 mcg-salmeterol 50 1 ea PO BID #60 ea 07/10/22 mcg/dose blistr powdr for inhalation (Wixela Inhub) doxycycline hyclate 100 mg tablet 100 mg PO BID #20 tabs 08/06/22 Allergies Allergy/AdvReac Type Severity Reaction Status Date / Time codeine Allergy Severe nausea Verified 06/16/22 16:30 Penicillins Allergy Severe Anaphylaxis Verified 06/16/22 16:30 sulfamethoxazole Allergy Severe HIVES/RASH/ Verified 06/16/22 16:30 [From BACTRIM] SWELLING Review of Systems Review of Systems: All other systems are reviewed and are negative Constitutional: Reports as per HPI and Reports no additional constitutional complaints Eyes: Reports as per HPI and Reports no additional eye complaints Reports system reviewed and no additional complaints, except as documented Cardiovascular: Reports as per HPI and Reports no additional cardiovascular complaints Respiratory: Reports as per HPI and Reports no additional respiratory complaints Gastrointestinal: Reports as per HPI and Reports no additional gastrointestinal complaints Genitourinary: Reports no additional female genitourinary complaints Musculoskeletal: Reports no additional musculoskeletal complaints Skin/Breast: Reports system reviewed and no additional complaints, except as docu Psychiatric: Reports no additional psychiatric complaints Endocrine: Reports no additional endocrine complaints Hematologic/Lymphatic: Reports no additional hematologic/lymphatic complaints Allergic/Immunologic: Reports no additional allergic/immunologic complaints Reports system reviewed and no additional complaints, except as documented and Reports Abnormal speech present [facility] Past Medical History Medical History Anemia Anxiety Arthritis Asthma-COPD overlap syndrome GERD (gastroesophageal reflux disease) Hiatal hernia History of kidney stones Hx of radiation therapy Hypercalcemia Hyperparathyroidism Lung cancer PONV (postoperative nausea and vomiting) Proctitis Pulmonary hypertension Slow to wake up after anesthesia Surgical History History of esophagogastroduodenoscopy History of lithotripsy History of lobectomy of lung History of lumpectomy of both breasts History of right inguinal hernia repair Hx of colonoscopy Hx of varicose vein ligation and stripping Family History Family History Mother Breast cancer Social History Social History Household Members: Family Household Members Other:: Sister Are you a primary health care sanitary technician to a significant other at home: Yes (sister with Down's dementia) Do you presently have visiting nurse or other home services: No Patient Tobacco Use Status: Former Tobacco user Quit Date: 1998 Tobacco use type: Cigarette Smoked in Last 30 Days: No Use of substances other than those prescribed or required for medical reasons: No Advance Directives: No Advance Directives Information Provided: No Physical Exam Vital Signs: Vital Signs: Last Vital Signs Temp 97.7 F 08/06/22 09:11 Pulse 92 08/06/22 09:11 Resp 18 08/06/22 09:11 BP 110/46 L 08/06/22 09:11 Pulse Ox 99 08/06/22 09:11 O2 Del Method Room Air 08/06/22 09:11 BMI result Body Mass Index 25.0 Vital signs have been reviewed as appeared to be correct. Blood pressure normal. Heart rate normal. Respiration rate normal. Temperature normal. Oxygen saturation normal. Appearance: Alert. Oriented X3. No acute distress. Head: Normal external exam. Normocephalic. Atraumatic. No Costello signs noted. No raccoon eyes noted Eyes: PERRLA. EOMI. Conjunctiva and sclera normal. Eyelids normal. ENT: TM's Normal. Pharynx normal. Uvula midline. Moist mucous membranes. No trismus noted. No drooling noted. No muffled voice noted. Neck: Normal inspection. Neck supple. FROM. No adenopathy. Thyroid Normal. No meningeal signs. No neck mass noted. CVS: Normal heart rate and rhythm. Heart sound normal. No murmurs noted. Pulses normal throughout. Respiratory: No respiratory distress. Painless inspiration. Breath sounds normal. No wheezes/rales/rhonchi noted. Chest nontender. No accessory muscle usage noted or decreased air movement noted. Abdomen: Soft and nontender. Bowel sounds normal in all 4 quadrants. No distention noted. No organomegaly noted. No visible injury noted. Back: No CVA tenderness. Full range of motion noted. Skin: Skin warm and dry. Normal skin color. Normal skin turgor. No rashes/lesions/lacerations noted. Extremities: No lower extremity edema. Extremities exhibit normal range of motion. Extremities nontender. Neuro: Oriented X 3. Cranial nerve exam: II-XII are grossly intact No motor deficit. No sensory deficit. Reflexes normal. Course Course Course Narrative: Left lower extremities cellulitis, no DVT, no underlying SQ air, no underlying fracture. Start the patient on doxycycline p.o. and follow-up with PCP. Medical Decision Making Differential Diagnosis Differential Diagnoses: The differential diagnosis associated with the presentation includes (Left lower extremities DVT, underlying fracture, necrotizing fasciitis, cellulitis, sepsis.) Lab Data MDM Lab Attestation statement: I reviewed the patient's lab results. 08/06/22 09:21 08/06/22 09:21 Labs: Lab Results 08/06/22 08/06/22 08/06/22 Range/Units 09:21 09:21 09:21 WBC 7.4 (4.8-10.8) X10*3/uL RBC 4.10 L (4.20-5.50) X10*6/uL Hgb 12.7 (12.0-16.0) g/dl Hct 39.8 (37.0-47.0) % MCV 97.1 (80.0-98.0) fL MCH 31.0 (27.0-33.0) pg MCHC 31.9 (31.0-35.0) g/dl RDW 12.4 (11.0-16.0) % Plt Count 198 (160-400) X10*3/uL MPV 10.4 (9.4-12.3) fL Immature Gran % (Auto) 0.3 (0.0-0.4) % Neut % (Auto) 64.2 (45-73) % Lymph % (Auto) 22.0 (20-40) % [place] % (Auto) 11.4 H (2-11) % Eos % (Auto) 1.6 (0-4) % Baso % (Auto) 0.5 (0-2) % Lymph # (Auto) 1.6 (1.2-4.9) X10*3/uL [place] # (Auto) 0.8 (0.1-1.2) X10*3/uL Eos # (Auto) 0.1 (0.0-0.4) X10*3/uL Baso # (Auto) 0.0 (0.0-0.2) X10*3/uL Abs Immat Gran (auto) 0.02 (0.00-0.03) X10*3/uL Absolute Neuts (auto) 4.7 (2.0-8.3) x10*3/uL Absolute Nucleated RBC 0.000 (0.0-0.012) X10*3/uL Nucleated RBC % (auto) 0.0 (0.0-0.2) /100WBC Sodium 141 (135-145) mmol/L Potassium 3.2 L (3.3-5.1) mmol/L Chloride 100 (96-108) mmol/L Carbon Dioxide 32 H (22-29) mmol/L Anion Gap 12 (12-20) BUN 16 (9-16) mg/dL Creatinine 0.70 (0.5-1.4) mg/dL Estim Creat Clear Calc 67.0 Estimated GFR > 60 Random Glucose 135 H (60-115) mg/dL Lactic Acid 1.4 (0.5-2.0) mmol/L Calcium 10.1 (8.4-10.2) mg/dL Total Bilirubin 0.8 (0.0-1.0) mg/dL Direct Bilirubin 0.3 (0.0-0.5) mg/dL AST 19 (5-31) U/L ALT 31 (0-31) U/L Alkaline Phosphatase 82 (39-117) U/L Total Protein 6.2 L (6.5-8.0) g/dL Albumin 3.8 (3.5-5.0) g/dL Lipase 8 (8-78) U/L Independent Interpretation I performed an independent interpretation of an: Plain X-Ray (Left lower extremities: No SQ air, no underlying fracture.) and Ultrasound (Left lower extremities: No DVT.) Radiology Impression Discussion of test interpretation with radiology: I have reviewed the radiologist's reading. Discharge Plan Discharge Clinical Impression: Cellulitis Patient Disposition: Home, Self-Care Instructions: Cellulitis (ED) Prescriptions: New doxycycline hyclate 100 mg tablet 100 mg PO BID Qty: 20 0RF No Action Paxlovid (EUA) 300 mg (150 mg x 2)-100 mg tablets,dose pack See Rx Instructions PO .COMPLEX 5 Days Qty: 30 0RF Rx Instructions: take TWO 150 mg tablets of nirmatrelvir with ONE 100 mg tablet of ritonavir twice daily for 5 days PO albuterol sulfate 90 mcg/actuation HFA aerosol inhaler 2 puff inhalation Q4-6H PRN (Reason: for wheezing) Qty: 6.7 2RF albuterol sulfate 1.25 mg/3 mL solution for nebulization 2.5 mg inhalation Q4-6H PRN (Reason: shortness of breath or wheezing) 30 Days Qty: 90 2RF fluticasone propion-salmeterol [Wixela Inhub] 250-50 mcg/dose blister with device 1 ea PO BID Qty: 60 3RF ferrous sulfate 28 mg iron Tablet 28 mg PO DAILY acetaminophen 500 mg Tablet 1,000 mg PO Q6H PRN (Reason: Pain) clobetasol 0.05 % ointment topical alprazolam 0.25 mg tablet 0.25 mg PO TID PRN (Reason: Anxiety) omeprazole 20 mg capsule,delayed release(DR/EC) 20 mg PO BID mesalamine 1,000 mg suppository 1,000 mg FL BEDTIME PRN (Reason: Rectal Discomfort) hydrochlorothiazide 12.5 mg capsule 37.5 mg PO DAILY aspirin [Adult Aspirin Regimen] 81 mg tablet,delayed release (DR/EC) 81 mg PO DAILY biotin 2,500 mcg capsule 5 mg PO DAILY multivitamin Tablet 1 tab PO DAILY coconut oil 1,000 mg capsule 1,000 mg PO DAILY letrozole 2.5 mg tablet 2.5 mg PO DAILY furosemide 20 mg tablet 20 mg PO DAILY potassium chloride 10 mEq capsule, extended release 10 meq PO DAILY Referrals: Joseph Valencia MD [Primary Care Provider] -
[2022-08-06 09:11] VITALS: BP 110/46; PULSE 92; RESP 18; TEMP 36.5; O2SAT 99; BMI 25.0
[2022-08-06 09:26] LABS: MANUAL DIFF FLAG NO
[2022-08-06 09:27] LABS: Basophils Percent Auto 0.5 % (0-2); Eosinophils Absolute Auto 0.1 X10*3/uL (0.0-0.4); Eosinophils Percent Auto 1.6 % (0-4); Hematocrit 39.8 % (37.0-47.0); Hemoglobin 12.7 g/dl (12.0-16.0); Imm Gran Abs Auto 0.02 X10*3/uL (0.00-0.03); Imm Gran Pct Auto 0.3 % (0.0-0.4); Lymphocytes Absolute Auto 1.6 X10*3/uL (1.2-4.9); Mean Corpuscular HGB Conc 31.9 g/dl (31.0-35.0); Mean Corpuscular Volume 97.1 fL (80.0-98.0); Mean Platelet Volume 10.4 fL (9.4-12.3); Monocytes Absolute Auto 0.8 X10*3/uL (0.1-1.2); Monocytes Percent Auto 11.4 % (2-11); Neutrophils Absolute Auto 4.7 x10*3/uL (2.0-8.3); Neutrophils Percent Auto 64.2 % (45-73); Platelet Count 198 X10*3/uL (160-400); Red Cell Distribution Width 12.4 % (11.0-16.0); White Blood Count 7.4 X10*3/uL (4.8-10.8)
[2022-08-06 09:40] LABS: Lactic Acid 1.4 mmol/L (0.5-2.0)
[2022-08-06 09:49] LABS: Alanine Aminotransferase 31 U/L (0-31); Albumin Level 3.8 g/dL (3.5-5.0); Alkaline Phosphatase 82 U/L (39-117); Anion Gap 12 (12-20); Aspartate Amino Transferase 19 U/L (5-31); Bilirubin Direct 0.3 mg/dL (0.0-0.5); Bilirubin Total 0.8 mg/dL (0.0-1.0); Blood Urea Nitrogen 16 mg/dL (9-16); Calcium 10.1 mg/dL (8.4-10.2); Carbon Dioxide 32 mmol/L (22-29); Chloride 100 mmol/L (96-108); Estimated Glomerular Filt Rate > 60; Glucose Random 135 mg/dL (60-115); Lipase 8 U/L (8-78); Potassium 3.2 mmol/L (3.3-5.1); Sodium 141 mmol/L (135-145); Total Protein 6.2 g/dL (6.5-8.0)
[2022-08-06] MEDS: Doxycycline Monohydrate 100 MG CAPSULE PO (11:21)
[2022-08-06] MEDS: Potassium Chloride Packet 20 MEQ PACKET 40 MEQ PO (11:21)
[2022-08-06 11:24] VITALS: BP 127/52; PULSE 87; RESP 16; O2SAT 98
== END 2022-08-06 13:00 | disposition home or self-care (01) ==
PROVIDERS: Emergency Provider Emergency Medicine; PCP Internal Medicine
DX: L03.116 Cellulitis of left lower limb (principal); R60.0 Localized edema; Z79.899 Other long term (current) drug therapy; Z87.891 Personal history of nicotine dependence
CPT/HCPCS: 36415; 73590; 80048; 80076; 83605; 83690; 85025; 87040; 93971; 99284

== ENCOUNTER 2022-08-15 16:24 | Outpatient (REF) | payer MEDICARE, SELFPAY ==
--- NOTE | ~2022-08-15 | US_ITS ---
EXAMINATION: US VENOUS ULTRASOUND WITH DOPPLER LOWER EXTREMITY, LEFT CLINICAL INFORMATION: Left leg edema. COMPARISON: Comparison is made to 08/06/2022. TECHNIQUE: Ultrasound of the deep veins is performed from the hip to the calf with compression sonography and color and pulse Doppler assessment. Spectral analysis with color-flow imaging is performed. FINDINGS: There is normal venous compression and respiratory variation and augmented flow. The visualized common femoral vein, superficial femoral vein, profunda femoral vein, popliteal vein, and the trifurcation region shows no evidence of deep venous thrombosis. No left popliteal cyst. Mild to moderate subjacent edema in the left calf. If the patient's symptoms persist, followup ultrasound in 5 days 7 days might be of value to exclude proximal propagation from a non-visualized calf vein. US/US venous duplex LE IMPRESSION: 1. No evidence for deep venous thrombosis in the visualized veins of the left lower extremity. 2. Mild to moderate subcutaneous edema in the left calf.
== END 2022-08-15 16:25 | disposition home or self-care (01) ==
LOC: HO.US 16:24
PROVIDERS: PCP Internal Medicine; Visit Provider Internal Medicine
DX: R22.42 Localized swelling, mass and lump, left lower limb (principal); R60.0 Localized edema; L53.8 Other specified erythematous conditions
CPT/HCPCS: 93971

== ENCOUNTER → 2022-10-17 14:55 | Outpatient (BNVA) | payer MEDICARE, SELFPAY | PROVIDERS: PCP Internal Medicine; Visit Provider Surgery | DX: C50.911 Malignant neoplasm of unspecified site of right female breast (principal); C50.912 Malignant neoplasm of unspecified site of left female breast; Z85.3 Personal history of malignant neoplasm of breast | CPT/HCPCS: 99212 ==

== ENCOUNTER → 2022-11-16 15:30 | Outpatient (BNVA) | payer MEDICARE, SELFPAY | PROVIDERS: PCP Internal Medicine; Visit Provider Surgery Vascular Surgery | DX: I83.12 Varicose veins of left lower extremity with inflammation (principal) | CPT/HCPCS: 99202 ==

== ENCOUNTER 2022-11-20 08:22 | Outpatient (AMB) | payer MEDICARE, SELFPAY ==
--- NOTE | 2022-11-20 08:30 | MHC.OFFVIS ---
Intake Vital Signs 11/20/22 08:31 Height 5 ft 6 in Weight 149 lb 14.629 oz BMI 24.2 BP 160/70 H Blood Pressure Location Rt brachial Position Sitting Pulse 89 Intake Visit Reasons: [employer]/ [employer] hbp Intake Note: NPV w/ EKG Centrifuge Separator Tender Required: No Accompanied by: Self / Same As Patient Allergies codeine Allergy (Severe, Verified 11/20/22 08:33) nausea Penicillins Allergy (Severe, Verified 11/20/22 08:33) Anaphylaxis sulfamethoxazole [From BACTRIM] Allergy (Severe, Verified 11/20/22 08:33) HIVES/RASH/SWELLING Medication List - Last Reconciled 11/20/22 by Ronaldo Zee MD acetaminophen 1,000 mg PO Q6H PRN albuterol sulfate 90 mcg/actuation 2 puffs inhalation Q4-6H PRN albuterol sulfate 2.5 mg (6 mL) inhalation Q4-6H PRN 30 days alprazolam 0.25 mg PO TID PRN aspirin (Adult Aspirin Regimen) 81 mg PO DAILY biotin 5 mg PO DAILY clobetasol 0.05% grams topical coconut oil 1,000 mg PO DAILY doxycycline hyclate 100 mg PO BID ferrous sulfate 28 mg PO DAILY fluticasone propion-salmeterol 250-50 mcg/dose (Wixela Inhub) 1 ea PO BID furosemide 20 mg PO DAILY hydrochlorothiazide 37.5 mg PO DAILY letrozole 2.5 mg PO DAILY mesalamine 1,000 mg AR BEDTIME PRN multivitamin 1 tab PO DAILY omeprazole 20 mg PO BID potassium chloride ER 20 mEq PO DAILY HPI HPI Comments History of Present Illness Details Eliza is here for consultation regarding blood pressure issues. She states that her blood pressure goes up and down too much. She states she does get low blood pressures but when I questioned her as to how low it goes to, she states systolics are only the 120s. Hence do not truly believe she gets hypotensive but more than likely just occasionally she may come back to normal range. Otherwise, some diastolics on the lower side. Any case, she does not really get some Tums from any of these. Some shortness of breath with exertion at times suspected to be from COPD. There is also history of lung cancer and lobectomy many years ago. No known coronary disease and she states she underwent cardiac catheterization many years ago but unremarkable. [facility] Medical History (Updated 11/20/22 @ 09:18 by Ronaldo Zee MD) Anemia Anxiety Arthritis Asthma-COPD overlap syndrome Essential hypertension GERD (gastroesophageal reflux disease) Hiatal hernia History of kidney stones Hx of radiation therapy Hypercalcemia Hyperparathyroidism Lung cancer PONV (postoperative nausea and vomiting) Proctitis Pulmonary hypertension Slow to wake up after anesthesia Surgical History History of esophagogastroduodenoscopy History of lithotripsy History of lobectomy of lung History of lumpectomy of both breasts History of right inguinal hernia repair Hx of colonoscopy Hx of varicose vein ligation and stripping Family History Mother Breast cancer Social History Household Members: Family Household Members Other:: Sister Are you a primary post acute care nurse practitioner to a significant other at home: Yes (sister with Down's dementia) Do you presently have visiting nurse or other home services: No Patient Tobacco Use Status: Former Tobacco user Quit Date: 1998 Tobacco use type: Cigarette Review of Systems Const Denies chills, Denies daytime sleepiness, Denies fatigue, Denies fever(s), Denies frequent falls, Denies night sweats, Denies snoring, Denies weakness, Denies weight gain and Denies weight loss Eyes Denies loss of vision ENT Denies dizziness and Denies hearing loss Card Denies chest pain, Denies chest pain with activity, Denies syncope, Denies rapid heart rate, Denies edema, Denies claudication, Denies leg edema, Denies lightheadedness, Denies palpitations, Denies dyspnea, Denies dyspnea on exertion and Denies orthopnea Resp Denies cough, Denies excessive phlegm production, Denies dyspnea, Denies dyspnea on exertion, Denies snoring and Denies wheezing GI Denies abdominal pain, Denies hematochezia, Denies change in bowel habits, Denies change in stool character, Denies heartburn, Denies nausea and Denies vomiting Denies hematuria, Denies urinary frequency and Denies dysuria Musc Denies arthralgias, Denies muscle weakness, Denies numbness and Denies tingling Skin/Breast Denies nail changes and Denies rash Neuro Denies Abnormal speech present, Denies dizziness, Denies syncope, Denies frequent falls, Denies loss of vision, Denies memory loss, Denies numbness, Denies tingling and Denies weakness Psych Denies depression and Denies memory loss Endo Denies fatigue and Denies palpitations Aller/Immun Denies wheezing Physical Exam Vital Signs: Last Vital Signs Pulse 89 11/20/22 08:31 BP 160/70 H 11/20/22 08:31 BMI result Body Mass Index 24.2 Const General: comfortable and no acute distress Orientation/consciousness: patient oriented x3 HEENT Other: Unremarkable Head: Yes normal to inspection Neck Neck: Yes normal visual inspection Chest Chest palpation & inspection: normal inspection of the chest Resp Auscultation: clear to auscultation bilaterally Cardio Palpation: normal PMI Heart sounds: S1 normal heart sound present, S2 normal heart sound present, no gallops, Murmur heart sound present systolic II/ and at the right sternal border and no rubs GI Palpation (GI): Soft to palpation Back/Spine/Pelvis Other: unremarkable Skin General skin exam: no rashes or lesions noted Neuro General: patient oriented x3 Speech: No Abnormal speech present Extrem General: Yes normal to inspection Psych Mental Status: mental status grossly normal Office Procedures EKG Details: EKG with sinus rhythm at 89/Min; nonspecific ST-T changes; [place]. [id number], Complete Assessment & Plan Assessment & Plan (1) Essential hypertension: Code(s): I10 - Essential (primary) hypertension (2) Nonrheumatic aortic (valve) stenosis: Code(s): I35.0 - Nonrheumatic aortic (valve) stenosis (3) Pulmonary hypertension: Comment: PULMONARY HYPERTENSION MOST LIKELY CAUSED BY COPD. WITH APPROPRIATE TREATMENT IT IS EXPECTED TO IMPROVE. Code(s): I27.20 - Pulmonary hypertension, unspecified (4) Asthma-COPD overlap syndrome: Comment: SEVERE OBSTRUCTIVE LUNG DISEASE, WITH SIGNIFICANT IMPROVEMENT AFTER BRONCHODILATOR THERAPY. DOING VERY WELL WITH THE CURRENT MEDICATION AND HAS SUBJECTIVELY IMPROVED. ADVISED TO CONTINUE: WIXELA 250-50 ONE INH BID ( Q 12 HRS ) I TOLD HER WHY WE HAD TO SLECT WIXELA 250-50MG BID . IF SHE MISSES THE 2ND DOES ON SOME DAYS BUT BREATHING IS OKAY THEN SHE CAN GO WITHOUT THE SECOND DOSE. * BREO WAS NOT COVERED BY INSURANCE , AND NO NEED TO GO TO [facility] ( WHICH HER IS ON ) ALSO PRESCRIBED PROAIR TO USE 2 PUFFS Q 4-6 HOURS P.R.N. Code(s): J44.9 - Chronic obstructive pulmonary disease, unspecified Plan Echocardiogram 2020 with LVEF of 65-70% with description of elevated filling pressures; mild aortic stenosis/regurgitation and pulmonary hypertension. Based on her risk factors, we will get an echocardiogram and stress test. Otherwise, with regard to the blood pressure advised to maintain a home blood pressure diary and bring it next time. May need to start some medications like amlodipine but to be decided. Orders: Orders CA echo transthoracic complete Today I10 - Essential (primary) hypertension CA lexiscan stress w willard Today I10 - Essential (primary) hypertension, I20.9 - Angina pectoris, unspecified, I25.10 - Atherosclerotic heart disease of [place] coronary artery without angina pectoris NM cardiolite stress test Today I10 - Essential (primary) hypertension, I25.10 - Atherosclerotic heart disease of [place] coronary artery without angina pectoris Coding Level of Care Code New Pt Level 4 (17058) Diagnoses Essential hypertension I10 Nonrheumatic aortic (valve) stenosis I35.0 Pulmonary hypertension I27.20 Asthma-COPD overlap syndrome J44.9 CPT Codes EKG - CPT: 34365-[id number], Complete ([id number])
[2022-11-20 08:31] VITALS: BP 160/70; PULSE 89; BMI 24.2
== END 2022-11-20 09:03 | disposition home or self-care (01) ==
PROVIDERS: PCP Internal Medicine; Visit Provider Internal Medicine
DX: I10 Essential (primary) hypertension (principal); I35.0 Nonrheumatic aortic (valve) stenosis; I27.20 Pulmonary hypertension, unspecified; J44.9 Chronic obstructive pulmonary disease, unspecified; I25.10 Atherosclerotic heart disease of native coronary artery without angina pectoris; R94.31 Abnormal electrocardiogram [ECG] [EKG]
CPT/HCPCS: 93010; 99204

== ENCOUNTER → 2022-11-20 08:22 | Outpatient (BNVA) | payer MEDICARE, SELFPAY | PROVIDERS: PCP Internal Medicine; Visit Provider Internal Medicine | DX: I35.0 Nonrheumatic aortic (valve) stenosis (principal); I10 Essential (primary) hypertension; I27.20 Pulmonary hypertension, unspecified; J44.9 Chronic obstructive pulmonary disease, unspecified | CPT/HCPCS: 93005; 99202 ==

== ENCOUNTER 2022-12-04 08:26 | Outpatient (REF) | payer MEDICARE, SELFPAY ==
--- NOTE | ~2022-12-04 | US_ITS ---
EXAMINATION: RIGHT and LEFT LOWER EXTREMITY VENOUS ULTRASOUND (Reflux Exam) CLINICAL INDICATION: leg pain and varicose veins. COMPARISON: Previous venous ultrasound most recent August 2019 TECHNIQUE: Color flow triplex imaging and compression Doppler was performed to evaluate both the deep and the superficial systems bilaterally. To evaluate the superficial system, the examination was performed in the upright position. Color-flow Doppler ultrasound and compression ultrasound were utilized. In addition, maneuvers were utilized to demonstrate reflux. FINDINGS: 1. DEEP VENOUS ULTRASOUND OF THE RIGHT LOWER EXTREMITY: Respiratory variation, normal compression and augmented flow are noted in the right common femoral vein as well as the right popliteal vein and there is no evidence of deep venous thrombosis at these locations. There is no evidence of reflux in the deep system in either the common femoral vein or the popliteal vein. There is no evidence of a Rueda's cyst. 2. SUPERFICIAL ULTRASOUND WITH DOPPLER OF RIGHT LOWER EXTREMITY: The right great saphenous vein at the saphenofemoral junction measures 4 mm, at the mid thigh 2 mm. The remainder of the right greater saphenous vein is not seen. There is no reflux demonstrated in the right great saphenous vein. There is a medial and lateral accessory greater saphenous vein. Medially this is seen at the saphenofemoral junction, measures 2 mm and does not demonstrate reflux. Laterally this measures 2 to 3 mm and does not demonstrate reflux. The right small saphenous vein measures 2-3 mm and demonstrates 2.1 seconds reflux. Perforators in the calf and thigh measuring 2 to 3 mm without reflux. Varicosity is at the knee and mid calf measuring 2 to 5 mm with 2.3-2.5 s reflux. 3. DEEP VENOUS ULTRASOUND OF THE LEFT LOWER EXTREMITY: Respiratory variation, normal compression and augmented flow are noted in the left common femoral vein as well as the left popliteal vein and there is no evidence of deep venous thrombosis at these locations. There is no evidence of reflux in the deep system in either the common femoral vein or the popliteal vein. . There is no evidence of a Rueda's cyst. 4. SUPERFICIAL ULTRASOUND WITH DOPPLER OF LEFT LOWER EXTREMITY: Left great saphenous vein at the saphenofemoral junction measures 7 mm, at the mid thigh 7 mm, at mid calf 3 mm and at the ankle measures 2 mm. The remainder of the left greater saphenous vein is not seen. There is no reflux demonstrated in the left great saphenous vein. There is a medial accessory greater saphenous vein measuring 2 mm at the saphenofemoral junction demonstrates 2 seconds reflux. There is a lateral accessory greater saphenous vein that measures 2 mm and does not demonstrate reflux. The left small saphenous vein measures 2 mm and demonstrates 2.4 seconds reflux. There is a nurse manager in the proximal thigh that measures 4 mm and demonstrates 2 seconds reflux. There are perforators in the calf measuring 2 to 4 mm that do not demonstrate reflux. There are multiple varicosities in the thigh and calf that measure 3 to 5 mm and demonstrate reflux, maximum 2.6 seconds. US/US venous duplex LE BI IMPRESSION: 1. No evidence of deep venous reflux or thrombus in the common femoral veins or popliteal veins bilaterally. 2. Right: Postprocedure changes to the right greater saphenous vein. The right greater saphenous vein appears occluded. Reflux in the right lesser saphenous vein. Varicosities at the knee and calf with reflux. 3. Left: Post procedure changes to the left greater saphenous vein. Reflux in the medial accessory greater saphenous vein at the saphenofemoral junction. Left lesser saphenous vein reflux. Director Broadcast in the thigh with reflux and multiple varicosities in the thigh and calf with reflux.
== END 2022-12-04 08:27 | disposition home or self-care (01) ==
LOC: HO.US 08:26
PROVIDERS: PCP Internal Medicine; Visit Provider Surgery Vascular Surgery
DX: I83.12 Varicose veins of left lower extremity with inflammation (principal)
CPT/HCPCS: 93970

== ENCOUNTER → 2022-12-28 09:13 | Outpatient (REF) | payer MEDICARE, SELFPAY ==
--- NOTE | ~2022-12-28 | NM_ITS ---
Myocardial perfusion study Indication: Abnormal EKG hypertension to evaluate for myocardial ischemia Technique: The patient was brought in for a Lexiscan perfusion study on 12/28/2022. Patient performed low-level exercise and was injected 0.4 mg of Lexiscan intravenously. Within a minute of injection, 25 mCi of sestamibi was given intravenously. Images were obtained using the SPECT gamma camera interlaced with the gating device. Images were obtained in supine position. Resting perfusion study was performed on 12/29/2022. Patient was administered 25 mCi of sestamibi intravenously at rest. Images were then obtained in supine position. Images obtained with and without CT attenuation. Total DLP 104 mGy-cm. Images were processed with the software and compared side to side in short axis, horizontal long axis and vertical long axis views. Findings: The stress perfusion study showed non attenuated images show some thinning of the distal lateral wall of the LV myocardium. Remainder of the LV myocardium is normally perfused. Attenuation corrected images show moderately reduced uptake in the apex of the LV myocardium. The gated study shows normal LV systolic function with calculated LVEF of 69%. LV cavity is normal in size. The gated study shows normal systolic wall thickening and contraction of segments. Resting study shows no change in perfusion pattern compared to stress perfusion study. Gating at rest reveals normal systolic wall motion with ejection fraction at 62%. The findings are consistent with likely normal myocardial perfusion. NM/NM cardiolite stress test Impression: 1. Myocardial perfusion imaging study shows likely normal myocardial perfusion 2. Gated LVEF is 69% 3. Transient ischemic dilatation not present EKG is nondiagnostic for ischemia
--- NOTE | 2022-12-28 09:16 | CA_ITS ---
Transthoracic Echocardiogram Patient (Last, First, Middle): Eliza Ann P Gender: Female Date of : 1950 Age: 72 Procedure Date: 12/28/2022 Procedure Type: Transthoracic Echocardiogram Location: OP Height: 165.1 cm Weight: 64.41 kg BSA: 1.71 m2 Heart Rate: bpm BP: 130 / 80 mmHg Parking Lot Manager: TO Referring MD: Ronaldo Zee MD Sagger Soak: Cornelius Ponce MD Symptoms: I10 - Essential (primary) hypertension Study Quality: Fair ECG Rhythm: Sinus Conclusions: - 1. Normal LV ejection fraction of 60 65% with impaired relaxation filling pattern 2. Mild aortic stenosis and regurgitation 3. [id number]-sftghldc mitral regurgitation with at least moderate mitral annular calcification 4. RV systolic pressure within normal limits 5. Mildly dilated ascending aorta at 4 cm 6. No gross pericardial effusion Findings Left Ventricle Normal left ventricular size, thickness, and systolic function. The visually estimated ejection fraction is between 60-65%. Spectral Doppler is indicative of an impaired relaxation filling pattern. E/E prime ratio is between 8 and 15 consistent with indeterminate filling pressures. There is mild septal asymmetric hypertrophy. Right Ventricle Normal right ventricular cavity size and systolic function. Atria The left atrium is likely dilated. There is no evidence of interatrial shunt. The right atrium is normal in size. Aortic Valve There is mild calcification of the aortic valve. There is mild thickening of the aortic valve. There is mild aortic valve stenosis. There is mild aortic valve regurgitation. Mitral Valve There is mild anterior and moderate posterior mitral leaflet thickening. There is moderate mitral annular calcification. There is mild to moderate mitral valve regurgitation. There is no mitral valve stenosis. Pulmonic Valve The pulmonic valve was not well visualized. Tricuspid Valve Normal tricuspid valve structure. There is mild tricuspid valve regurgitation. Normal right atrial pressure. There is no evidence of pulmonary hypertension. Great Vessels The pulmonary artery was not well visualized. There is mild dilatation of the ascending aorta measuring 4.00 cm. Venous The inferior vena cava is normal in size and collapses greater than 50% with inspiration. Pericardium/Pleural There is no evidence of pericardial effusion. Prior Study Comparison Changes noted compared to prior study dated: 09/23/2020. RV systolic pressure is within normal limits on this study Measurements 2D Linear Measurements IVSd: 1.40 0.6-0.9/0.6-1.0 cm LVIDd: 4.50 3.9-5.3/4.2-5.9 cm LVIDd Index: 2.63 2.4-3.2/2.2-3.1 cm/m2 LVIDs: 3.30 2.0-3.6 cm LVPWd: 0.90 0.7-1.1 cm LA Diam: 3.90 2.7-3.8/3.0-4.0 cm LAIDs Index: 2.28 1.5-2.3 cm/m2 LV Mass: 232.24 67-162/88-224 g LV Mass Index: 135.81 43-95/49-115 g/m2 LVOT Diam: 2.00 3.0+(-)1.3 cm 2D Systolic Function EF 4C: 66.80 >55% EF 2C: 58.90 >55% EF BiP: 63.90 >55% Mitral Valve MV VTI: 0.42 MV Pk Perez: 1.64 MV Mn Perez: 1.14 MV Pk Grad: 11.00 MV Mn Grad: 6.00 MV Pk E: 1.26 MV PK A: 1.47 MV Decel Time: 117.00 E/A: 0.90 E'Lateral: 7.72 E'Medial: 5.00 E/E' Med: 25.20 E/E' Lat: 16.30 PHT: 34.00 MVA PHT: 6.47 MVA Continuity: 1.94 Decel Dawson: 10.78 Aortic Valve AoV Pk Perez: 1.90 AoV Mn Perez: 1.36 AoV VTI: 0.45 AoV Pk Grad: 14.00 Aov Mn Grad: 8.00 LEX Cont.VTI: 1.85 AI Pk Perez: 4.14 AI Dawson: 4.29 LVOT LVOT Pk Perez: 1.12 LVOT Mn Perez: 0.71 LVOT VTI: 0.26 LVOT Pk Grad: 5.00 LVOT Mn Grad: 2.00 LVOT Diam: 2.00 LVOT Area: 3.14 Diastolic Function MV Pk E: 1.26 MV Pk A: 1.47 E/A: 0.90 E'Medial: 5.00 E/E' Med: 25.20 E' Laterial: 7.72 E/E' Lat: 16.30 Right Ventricle TAPSE (mm): 27.80 TVS' Perez: 12.70 Tricuspid Valve TR Pk Perez: 2.61 TR Pk Grad: 27.00 RA Press: 3.00 RVSP: 30.00 Great Vessels Aorta Sinus of Valsalva: 3.10 2.0-3.5 cm Ao Asc: 4.00 2.1-3.4 cm Ao Arch: 3.60 Updated in Other Vendor System with Status of Final Cornelius Ponce MD electronically signed on 12/29/2022 9:50:58 AM with status of Final
--- NOTE | 2022-12-28 09:16 | CA_ITS ---
Acquisition Time: 2022-12-28 10:15:46 Total Exercise Time: 00:02:00 Test Indications: HTN Medications: SEE H Protocol: LEXISCAN Max HR: 113 BPM 76% of Pred: 147 BPM Max BP: 152/076 mmHG Max Work Load: 1.0 METS Pharmacological stress test with Lexiscan injection while sitting and kicking her legs, without anginal symptoms, with isolated PVCs, with normotensive response to injection, with non-diagnostic EKGs. Aminophylline 75mg IVp given to reverse Lexiscan. Nuclear images pending. Test reviewed with Dr. Ponce Referred By: Ronaldo Zee Overread By: Benita Hernandez
== END ==
LOC: HO.CARD 09:13
PROVIDERS: PCP Internal Medicine; Visit Provider Internal Medicine
DX: I10 Essential (primary) hypertension (principal); I25.119 Atherosclerotic heart disease of native coronary artery with unspecified angina pectoris
CPT/HCPCS: 78452; 93017; 93306; A9500; J0280; J2785

== ENCOUNTER → 2022-12-28 09:16 | Outpatient (BNV) | payer MEDICARE, SELFPAY | PROVIDERS: PCP Internal Medicine; Visit Provider Nurse Practitioner | DX: I34.0 Nonrheumatic mitral (valve) insufficiency (principal); I34.81 Nonrheumatic mitral (valve) annulus calcification; R94.31 Abnormal electrocardiogram [ECG] [EKG] | CPT/HCPCS: 78452; 93016; 93018; 93306 ==

== ENCOUNTER 2023-01-04 14:16 | Outpatient (AMB) | payer MEDICARE, SELFPAY ==
[2023-01-04 14:19] VITALS: BP 110/66; PULSE 88; O2SAT 94; BMI 23.4
--- NOTE | 2023-01-04 14:19 | A.OFFVIS_ITS ---
Intake Vital Signs 01/04/23 14:19 Height 5 ft 6 in Weight 145 lb BMI 23.4 BP 110/66 Blood Pressure Location Rt brachial Position Sitting Pulse 88 Pulse Source Pulse Oximeter Pulse Oximetry (%) 94 Oxygen Delivery Method Room Air Intake Visit Reasons: US 12/04/22 follow up Intake Note: Pt presents to the office today for a follow up after a US on 12/04/22. Pt states her left leg is still worse than the right. Pt states she is starting to get pain,itching,and swelling in both legs but the left leg is worse. She states she wears compression stockings like the ones you get at the hospital after a surgery, annd those work the best she states. Allergies codeine Allergy (Severe, Verified 01/04/23 14:26) nausea Penicillins Allergy (Severe, Verified 01/04/23 14:26) Anaphylaxis sulfamethoxazole [From BACTRIM] Allergy (Severe, Verified 01/04/23 14:26) HIVES/RASH/SWELLING HPI US 12/04/22 follow up HPI Details Very pleasant 72-year-old female presents for follow-up regarding venous insufficiency. She has significant lower extremity varicosities. She actually had venous procedures done nearly [address] Delarosa. She reports that the left is more so than the right. She has significant pain discomfort and swelling. It has been a continued source of discomfort in affects her activities of daily living including walking. She has been on compr ession stockings for over 3 years with minimal relief at this point. She now presents for follow-up. [facility] Medical History Anemia Anxiety Arthritis Asthma-COPD overlap syndrome Essential hypertension GERD (gastroesophageal reflux disease) Hiatal hernia History of kidney stones Hx of radiation therapy Hypercalcemia Hyperparathyroidism Lung cancer PONV (postoperative nausea and vomiting) Proctitis Pulmonary hypertension Slow to wake up after anesthesia Surgical History History of esophagogastroduodenoscopy History of lithotripsy History of lobectomy of lung History of lumpectomy of both breasts History of right inguinal hernia repair Hx of colonoscopy Hx of varicose vein ligation and stripping Family History Mother Breast cancer Social History Household Members: Family Household Members Other:: Sister Are you a primary hemodialysis patient care specialist to a significant other at home: Yes (sister with Down's dementia) Do you presently have visiting nurse or other home services: No Patient Tobacco Use Status: Former Tobacco user Quit Date: 1998 Tobacco use type: Cigarette Review of Systems Const Reports as per HPI ENT Reports no additional complaints Card Denies chest pain, Denies chest pain at rest and Denies chest pain with activity Resp Denies chest congestion and Denies cough GI Reports no additional complaints Musc Details: pain over varicosities, aching of lower extremities, swelling, cramping, heaviness and tiredness, itching Denies abnormal gait Skin/Breast Reports pruritus and Denies wounds Neuro Reports no additional complaints and Denies abnormal gait Psych Denies no additional complaints Physical Exam Vital Signs: Last Vital Signs Pulse 88 01/04/23 14:19 BP 110/66 01/04/23 14:19 Pulse Ox 94 01/04/23 14:19 Oxygen Delivery Method Room Air 01/04/23 14:19 BMI result Body Mass Index 23.4 Const General: cooperative, healthy appearing and comfortable Orientation/consciousness: oriented to person, oriented to place and oriented to time Neck Carotids: no bruits Chest Chest palpation & inspection: normal inspection of the chest and normal palpation of entire chest wall Resp Effort & Inspection: normal respiratory effort and able to speak in complete sentences Cardio Rate: regular rate Heart sounds: S1 normal heart sound present and S2 normal heart sound present Peripheral pulses: Peripheral pulses 2+ throughout GI Inspection: Yes normal to inspection Skin Other: +2 edema, large rope-like varicosities greater than 4 mm left thigh and calf medial aspect CEAP Classification C4 - skin color changes Ep - Etiology Primary As - superficial veins P - reflux General skin exam: dry skin Neuro General: oriented to person, oriented to place and oriented to time Extrem Right lower extremity: full ROM, normal capillary refill and edema Left lower extremity: full ROM, normal capillary refill and edema Psych Mental Status: mental status grossly normal Results Reviewed Results Reviewed: Brief summary of venous insufficiency testing is as follows: right great saphenous vein: Ablated right small saphenous vein: negative right accessory vein: none present left great saphenous vein: Ablated left small saphenous vein: negative left accessory vein: none present Please note there is no evidence of any venous aneurysms or significant tortuosity Assessment & Plan Assessment & Plan (1) Varicose veins of left lower extremity with inflammation: Code(s): I83.12 - Varicose veins of left lower extremity with inflammation Plan: This patient has varicose veins with inflammation. They continue to be a source of discomfort for the patient. The patient has tried conservative treatment with compression, leg elevation and exercise program for over 3 months time. They have been compliant with all treatment. This has provided minimal relief for the patient. I do not anticipate this course of treatment will alter the underlying etiology. The patient has been scheduled for lower extremity venous treatment inclusive of --- left leg microphlebectomy to be performed in the operating room. Risks, benefits, and complications of this procedure has been discussed in detail with the patient including but not limited to bleeding, infection, and the development of a DVT. The patient has demonstrated a clear understanding and has consented. We will schedule the patient as soon as possible. Thank you for allowing us to participate in this patient's care. If there are any questions or concerns please do not hesitate to contact us. Coding Level of Care Code Est Pt Level 4 (72259) Diagnoses Varicose veins of left lower extremity with inflammation I83.12
== END 2023-01-04 15:20 | disposition home or self-care (01) ==
PROVIDERS: PCP Internal Medicine; Visit Provider Surgery Vascular Surgery
DX: I83.12 Varicose veins of left lower extremity with inflammation (principal)
CPT/HCPCS: 99214

== ENCOUNTER → 2023-01-04 14:16 | Outpatient (BNVA) | payer MEDICARE, SELFPAY | PROVIDERS: PCP Internal Medicine; Visit Provider Surgery Vascular Surgery | DX: I83.12 Varicose veins of left lower extremity with inflammation (principal) | CPT/HCPCS: 99212 ==

== ENCOUNTER 2023-01-08 09:10 | Outpatient (AMB) | payer MEDICARE, SELFPAY ==
[2023-01-08 09:12] VITALS: BP 136/64; PULSE 86; BMI 23.4
--- NOTE | 2023-01-08 09:12 | A.OFFVIS_ITS ---
Intake Vital Signs 01/08/23 09:12 Height 5 ft 6 in Weight 145 lb 1.027 oz BMI 23.4 BP 136/64 Blood Pressure Location Rt brachial Position Sitting Pulse 86 Intake Visit Reasons: follow up after testing Intake Note: follow up after testing Habilitation Worker Required: No Accompanied by: Self / Same As Patient Allergies codeine Allergy (Severe, Verified 01/08/23 09:15) nausea Penicillins Allergy (Severe, Verified 01/08/23 09:15) Anaphylaxis sulfamethoxazole [From BACTRIM] Allergy (Severe, Verified 01/08/23 09:15) HIVES/RASH/SWELLING Medication List - Last Reconciled 01/08/23 by Ronaldo Zee MD acetaminophen 1,000 mg PO Q6H PRN albuterol sulfate 90 mcg/actuation 2 puffs inhalation Q4-6H PRN albuterol sulfate 2.5 mg (6 mL) inhalation Q4-6H PRN 30 days alprazolam 0.25 mg PO TID PRN aspirin (Adult Aspirin Regimen) 81 mg PO DAILY biotin 5 mg PO DAILY clobetasol 0.05% grams topical coconut oil 1,000 mg PO DAILY ferrous sulfate 28 mg PO DAILY fluticasone propion-salmeterol 250-50 mcg/dose (Wixela Inhub) 1 ea inhalation BID furosemide 20 mg PO DAILY hydrochlorothiazide 37.5 mg PO DAILY letrozole 2.5 mg PO DAILY mesalamine 1,000 mg GA BEDTIME PRN multivitamin 1 tab PO DAILY omeprazole 20 mg PO BID potassium chloride ER 20 mEq PO DAILY HPI HPI Comments History of Present Illness Details Eliza returns for follow-up. In the past, she was seen regarding labile blood pressures. However, according to patient it does not really get lower than 120s. Under reviewing blood pressure trends, there are normal readings as well as some high readings. Today, borderline. Otherwise, she also states that she gets random episodes where the heart rates go up. Some anxiety at baseline. Shortness of breath at baseline from COPD. There is also history of lung cancer/lobectomy from many years ago. No documented coronary disease. She states she underwent cardiac catheterization many years ago but unremarkable. [facility] Medical History Anemia Anxiety Arthritis Asthma-COPD overlap syndrome Essential hypertension GERD (gastroesophageal reflux disease) Hiatal hernia History of kidney stones Hx of radiation therapy Hypercalcemia Hyperparathyroidism Lung cancer PONV (postoperative nausea and vomiting) Proctitis Pulmonary hypertension Slow to wake up after anesthesia Surgical History History of esophagogastroduodenoscopy History of lithotripsy History of lobectomy of lung History of lumpectomy of both breasts History of right inguinal hernia repair Hx of colonoscopy Hx of varicose vein ligation and stripping Family History Mother Breast cancer Social History Household Members: Family Household Members Other:: Sister Are you a primary pet care worker to a significant other at home: Yes (sister with Down's dementia) Do you presently have visiting nurse or other home services: No Patient Tobacco Use Status: Former Tobacco user Quit Date: 1998 Tobacco use type: Cigarette Review of Systems Const Denies chills, Denies daytime sleepiness, Denies fatigue, Denies fever(s), Denies frequent falls, Denies night sweats, Denies snoring, Denies weakness, Denies weight gain and Denies weight loss Eyes Denies loss of vision ENT Denies dizziness and Denies hearing loss Card Denies chest pain, Denies chest pain with activity, Denies syncope, Denies rapid heart rate, Denies edema, Denies claudication, Denies leg edema, Denies lightheadedness, Denies palpitations, Denies dyspnea, Denies dyspnea on exertion and Denies orthopnea Resp Denies cough, Denies excessive phlegm production, Denies dyspnea, Denies dyspnea on exertion, Denies snoring and Denies wheezing GI Denies abdominal pain, Denies hematochezia, Denies change in bowel habits, Denies change in stool character, Denies heartburn, Denies nausea and Denies vomiting Denies hematuria, Denies urinary frequency and Denies dysuria Musc Denies arthralgias, Denies muscle weakness, Denies numbness and Denies tingling Skin/Breast Denies nail changes and Denies rash Neuro Denies Abnormal speech present, Denies dizziness, Denies syncope, Denies frequent falls, Denies loss of vision, Denies memory loss, Denies numbness, Denies tingling and Denies weakness Psych Denies depression and Denies memory loss Endo Denies fatigue and Denies palpitations Aller/Immun Denies wheezing Physical Exam Vital Signs: Last Vital Signs Pulse 86 01/08/23 09:12 BP 136/64 01/08/23 09:12 BMI result Body Mass Index 23.4 Const General: comfortable and no acute distress Orientation/consciousness: patient oriented x3 HEENT Other: Unremarkable Head: Yes normal to inspection Neck Neck: Yes normal visual inspection Chest Chest palpation & inspection: normal inspection of the chest Resp Auscultation: clear to auscultation bilaterally Cardio Palpation: normal PMI Heart sounds: S1 normal heart sound present, S2 normal heart sound present, no gallops, Murmur heart sound present systolic II/ and at the right sternal border and no rubs GI Palpation (GI): Soft to palpation Back/Spine/Pelvis Other: unremarkable Skin General skin exam: no rashes or lesions noted Neuro General: patient oriented x3 Speech: No Abnormal speech present Extrem General: Yes normal to inspection Psych Mental Status: mental status grossly normal Assessment & Plan Assessment & Plan (1) Nonrheumatic aortic (valve) stenosis: Code(s): I35.0 - Nonrheumatic aortic (valve) stenosis (2) Mitral annular calcification: Code(s): I34.81 - Nonrheumatic mitral (valve) annulus calcification (3) Non-rheumatic mitral regurgitation: Code(s): I34.0 - Nonrheumatic mitral (valve) insufficiency (4) Essential hypertension: Code(s): I10 - Essential (primary) hypertension (5) Pulmonary hypertension: Comment: PULMONARY HYPERTENSION MOST LIKELY CAUSED BY COPD. WITH APPROPRIATE TREATMENT IT IS EXPECTED TO IMPROVE. Code(s): I27.20 - Pulmonary hypertension, unspecified (6) Asthma-COPD overlap syndrome: Comment: SEVERE OBSTRUCTIVE LUNG DISEASE, WITH SIGNIFICANT IMPROVEMENT AFTER BRONCHODILATOR THERAPY. DOING VERY WELL WITH THE CURRENT MEDICATION AND HAS SUBJECTIVELY IMPROVED. ADVISED TO CONTINUE: WIXELA 250-50 ONE INH BID ( Q 12 HRS ) I TOLD HER WHY WE HAD TO SLECT WIXELA 250-50MG BID . IF SHE MISSES THE 2ND DOES ON SOME DAYS BUT BREATHING IS OKAY THEN SHE CAN GO WITHOUT THE SECOND DOSE. * BREO WAS NOT COVERED BY INSURANCE , AND NO NEED TO GO TO [facility] ( WHICH HER IS ON ) ALSO PRESCRIBED PROAIR TO USE 2 PUFFS Q 4-6 HOURS P.R.N. Code(s): J44.9 - Chronic obstructive pulmonary disease, unspecified (7) Heart palpitations: Code(s): R00.2 - Palpitations Plan In the most recent echocardiogram, LVEF 60-60%. Mild diastolic dysfunction. Mild aortic stenosis/regurgitation. Moderate mitral annular calcification/hnyf-ot-vddkyhgr regurgitation. No pulmonary hypertension. Ascending aortic size 4 cm. Myocardial perfusion imaging study shows normal perfusion. With regard to the aortic stenosis/mitral valve disease, not hemodynamically significant at this time. Can be followed on echocardiograms as needed. The ascending aortic dilatation is also mild and can be followed periodically. Otherwise, blood pressure seems to be mostly stable and no specific recommendations in that regard. With regard to her sensation of erratic heart rates, we can do a Holter monitor to see if she has any atrial arrhythmias. Otherwise, mainly reassurance. Total time spent including review of data, counseling, documentation, coordination of care-31 minutes. Orders: Orders ECG 7 day holter monitor Today R00.2 - Palpitations Coding Level of Care Code Est Pt Level 4 (85131) Diagnoses Nonrheumatic aortic (valve) stenosis I35.0 Mitral annular calcification I34.81 Non-rheumatic mitral regurgitation I34.0 Essential hypertension I10 Pulmonary hypertension I27.20 Asthma-COPD overlap syndrome J44.9 Heart palpitations R00.2
== END 2023-01-08 09:36 | disposition home or self-care (01) ==
PROVIDERS: PCP Internal Medicine; Referring Provider Internal Medicine; Visit Provider Internal Medicine
DX: I35.0 Nonrheumatic aortic (valve) stenosis (principal); I34.81 Nonrheumatic mitral (valve) annulus calcification; I34.0 Nonrheumatic mitral (valve) insufficiency; I10 Essential (primary) hypertension; I27.20 Pulmonary hypertension, unspecified; J44.9 Chronic obstructive pulmonary disease, unspecified; R00.2 Palpitations
CPT/HCPCS: 99214

== ENCOUNTER → 2023-01-08 09:10 | Outpatient (BNVA) | payer MEDICARE, SELFPAY | PROVIDERS: PCP Internal Medicine; Referring Provider Internal Medicine; Visit Provider Internal Medicine | DX: R00.2 Palpitations (principal); J44.9 Chronic obstructive pulmonary disease, unspecified; I27.20 Pulmonary hypertension, unspecified; I10 Essential (primary) hypertension; I34.0 Nonrheumatic mitral (valve) insufficiency; I34.81 Nonrheumatic mitral (valve) annulus calcification; I35.0 Nonrheumatic aortic (valve) stenosis | CPT/HCPCS: 99212 ==

== ENCOUNTER → 2023-01-23 15:22 | Outpatient (REF) | payer MEDICARE, SELFPAY ==
--- NOTE | 2023-01-23 15:27 | HM_ITS ---
Conclusion: 1. Patient was monitored for total period of 7 days 2. Baseline was normal sinus with average heart of 91 beats per minute 3. No significant pauses noted 4. Occasional PACs and PVCs noted with frequent SVT runs, fastest 193 beats per minute and of longest 7 beats 5. No patient reported events MTDD
== END ==
LOC: HO.CARD 15:22
PROVIDERS: PCP Internal Medicine; Visit Provider Internal Medicine
DX: R00.2 Palpitations (principal)
CPT/HCPCS: 93242

== ENCOUNTER → 2023-01-23 15:27 | Outpatient (BNV) | payer MEDICARE, SELFPAY | PROVIDERS: PCP Internal Medicine; Visit Provider Internal Medicine Cardiovascular Disease | DX: I47.1 Supraventricular tachycardia (principal) | CPT/HCPCS: 93244 ==

== ENCOUNTER 2023-01-31 16:08 | Outpatient (REF) | payer MEDICARE, SELFPAY ==
[2023-01-31 16:22] LABS: MANUAL DIFF FLAG NO
[2023-01-31 16:40] LABS: Basophils Absolute Auto 0.1 X10*3/uL (0.0-0.2); Basophils Percent Auto 0.9 % (0-2); Eosinophils Absolute Auto 0.2 X10*3/uL (0.0-0.4); Eosinophils Percent Auto 2.3 % (0-4); Hematocrit 42.7 % (37.0-47.0); Imm Gran Abs Auto 0.02 X10*3/uL (0.00-0.03); Imm Gran Pct Auto 0.3 % (0.0-0.4); Lymphocytes Absolute Auto 2.2 X10*3/uL (1.2-4.9); Lymphocytes Percent Auto 31.1 % (20-40); Mean Corpuscular HGB Conc 32.8 g/dl (31.0-35.0); Mean Corpuscular Hemoglobin 31.7 pg (27.0-33.0); Mean Corpuscular Volume 96.6 fL (80.0-98.0); Mean Platelet Volume 10.4 fL (9.4-12.3); Monocytes Absolute Auto 0.5 X10*3/uL (0.1-1.2); Monocytes Percent Auto 7.7 % (2-11); Neutrophils Absolute Auto 4.1 x10*3/uL (2.0-8.3); Neutrophils Percent Auto 57.7 % (45-73); Platelet Count 279 X10*3/uL (160-400); Red Blood Count 4.42 X10*6/uL (4.20-5.50); Red Cell Distribution Width 12.8 % (11.0-16.0); White Blood Count 7.1 X10*3/uL (4.8-10.8)
[2023-01-31 17:24] LABS: Alanine Aminotransferase 23 U/L (0-31); Albumin Level 4.3 g/dL (3.5-5.0); Alkaline Phosphatase 83 U/L (39-117); Anion Gap 11 (12-20); Aspartate Amino Transferase 20 U/L (5-31); Bilirubin Total 0.7 mg/dL (0.0-1.0); Blood Urea Nitrogen 12 mg/dL (9-16); Calcium 11.1 mg/dL (8.4-10.2); Carbon Dioxide 32 mmol/L (22-29); Chloride 104 mmol/L (96-108); Estimated Glomerular Filt Rate > 60; Glucose Random 119 mg/dL (60-115); Potassium 3.5 mmol/L (3.3-5.1); Sodium 143 mmol/L (135-145); Total Protein 7.4 g/dL (6.5-8.0)
[2023-02-01 15:39] LABS: Calcium (PTHI) 10.8 mg/dL (8.6-10.4); PTHI 107 pg/mL (16-77)
== END 2023-01-31 16:09 | disposition home or self-care (01) ==
LOC: HO.LAB 16:08
PROVIDERS: PCP Internal Medicine; Visit Provider Internal Medicine
DX: I10 Essential (primary) hypertension (principal); J44.9 Chronic obstructive pulmonary disease, unspecified; E83.52 Hypercalcemia; Z95.2 Presence of prosthetic heart valve
CPT/HCPCS: 36415; 80053; 83970; 85025

== ENCOUNTER 2023-02-05 11:45 | Day surgery (SDC) | payer MEDICARE, SELFPAY ==
[2023-02-01 14:33] VITALS: BMI 23.4
--- NOTE | 2023-02-02 10:39 | HO.ANESPROP2 ---
Documented by User: Viji Chopra NP 02/02/23 10:44 HPI - Anesthesia Eval Consult details Narrative: 73yo F for Left Micro Phlebectomy Per 12/2022 cardiac office visit note: In the most recent echocardiogram, LVEF 60-60%. Mild diastolic dysfunction. Mild aortic stenosis/regurgitation. Moderate mitral annular calcification/[id number]-[id number] regurgitation. No pulmonary hypertension. Ascending aortic size 4 cm. Myocardial perfusion imaging study shows normal perfusion. With regard to the aortic stenosis/mitral valve disease, not hemodynamically significant at this time. Can be followed on echocardiograms as needed. The ascending aortic dilatation is also mild and can be followed periodically. Otherwise, blood pressure seems to be mostly stable and no specific recommendations in that regard. With regard to her sensation of erratic heart rates, we can do a Holter monitor to see if she has any atrial arrhythmias. Otherwise, mainly reassurance. Holter is done, pending report [facility] Active Problems Active Problems: All Active Problems (Updated 02/01/23 @ 14:25 by Nayeli Osorio RN) Non-rheumatic mitral regurgitation (Acute) Mitral annular calcification (Acute) Heart palpitations (Acute) Nonrheumatic aortic (valve) stenosis (Acute) Varicose veins of left lower extremity with inflammation (Acute) Invasive ductal carcinoma of left breast (Acute) Abnormal ultrasound of breast (Acute) Abnormal mammogram of left breast (Acute) History of left breast cancer (Acute) Breast cancer, right (Acute) Essential hypertension (Acute) Hypercalcemia (Acute) Asthma-COPD overlap syndrome (Acute) Pulmonary hypertension (Acute) Past Medical History Medical History Breast cancer Essential hypertension Hypercalcemia Slow to wake up after anesthesia Hx of radiation therapy Hiatal hernia PONV (postoperative nausea and vomiting) Anemia History of kidney stones Proctitis Arthritis Anxiety Hyperparathyroidism Lung cancer GERD (gastroesophageal reflux disease) Asthma-COPD overlap syndrome Pulmonary hypertension Family History Family History Mother Breast cancer Surgical History Surgical History Hx of cardiac catheterization Hx of varicose vein ligation and stripping History of lumpectomy of both breasts History of right inguinal hernia repair History of lithotripsy History of lobectomy of lung Hx of colonoscopy History of esophagogastroduodenoscopy History of Problems with Anesthesia: No Social History Household Members: Family Household Members Other:: Sister Are you a primary career development counselor to a significant other at home: Yes (sister with Down's dementia) Do you presently have visiting nurse or other home services: No Patient Tobacco Use Status: Former Tobacco user Quit Date: 1998 Tobacco use type: Cigarette Meds Allergies Allergy/AdvReac Type Severity Reaction Status Date / Time codeine Allergy Severe nausea Verified 03/01/23 14:51 Penicillins Allergy Severe Anaphylaxis Verified 03/01/23 14:51 sulfamethoxazole Allergy Severe HIVES/RASH/ Verified 03/01/23 14:51 [From BACTRIM] SWELLING Home Medications Medication Instructions Recorded Confirmed Last Taken Type alprazolam 0.25 mg tablet 0.25 mg PO TID PRN Anxiety 10/06/20 02/01/23 05/09/21 History aspirin 81 mg tablet,delayed 81 mg PO DAILY 10/06/20 02/01/23 05/08/21 History release (Adult Aspirin Regimen) biotin 2,500 mcg capsule 5 mg PO DAILY 10/06/20 02/01/23 Unknown History coconut oil 1,000 mg capsule 1,000 mg PO DAILY 10/06/20 02/01/23 Unknown History hydrochlorothiazide 12.5 mg capsule 37.5 mg PO DAILY 10/06/20 02/01/23 Unknown History mesalamine 1,000 mg rectal 1,000 mg GA BEDTIME PRN Rectal 10/06/20 02/01/23 Unknown History suppository Discomfort multivitamin 1 tab PO DAILY 10/06/20 02/01/23 Unknown History omeprazole 20 mg capsule,delayed 20 mg PO BID 10/06/20 02/01/23 05/09/21 History release clobetasol 0.05 % topical ointment g topical 12/06/20 01/08/23 Unknown History acetaminophen 500 mg tablet 1,000 mg PO Q6H PRN Pain 05/03/21 02/01/23 05/09/21 History ferrous sulfate 28 mg iron tablet 28 mg PO DAILY 05/03/21 02/01/23 05/08/21 History furosemide 20 mg tablet 20 mg PO DAILY 08/09/21 02/01/23 Unknown History letrozole 2.5 mg tablet 2.5 mg PO DAILY 08/09/21 02/01/23 Unknown History potassium chloride 20 mEq 20 meq PO DAILY 11/20/22 02/01/23 Unknown History tablet,extended release Exam Exam Date and Time: February 02, 2023 1039 Height,Weight and Vital Signs: Height 5 ft 6 in Weight 65.771 kg Pertinent Lab Results Pertinent Lab Results: Laboratory Tests 01/31/23 16:18 WBC 7.1 Hgb 14.0 Hct 42.7 Plt Count 279 D Sodium 143 Potassium 3.5 Chloride 104 Carbon Dioxide 32 H BUN 12 Creatinine 0.72 Narrative Narrative: See HPI Assessment and Plan Assessment Anesthesia Assessment: Chart Reviewed Final Anesthetic Review History of Problems with Anesthesia: No Documented by User: Sunday Mathews MD 04/05/23 19:03 HPI - Anesthesia Eval Consult details Narrative: 73yo F for Left Micro Phlebectomy Per 12/2022 cardiac office visit note: In the most recent echocardiogram, LVEF 60-60%. Mild diastolic dysfunction. Mild aortic stenosis/regurgitation. Moderate mitral annular calcification/[id number] regurgitation. No pulmonary hypertension. Ascending aortic size 4 cm. Myocardial perfusion imaging study shows normal perfusion. With regard to the aortic stenosis/mitral valve disease, not hemodynamically significant at this time. Can be followed on echocardiograms as needed. The ascending aortic dilatation is also mild and can be followed periodically. Otherwise, blood pressure seems to be mostly stable and no specific recommendations in that regard. With regard to her sensation of erratic heart rates, we can do a Holter monitor to see if she has any atrial arrhythmias. Otherwise, mainly reassurance. s/p RUL removal PMFSH Past Medical History Medical History Breast cancer Essential hypertension Hypercalcemia Slow to wake up after anesthesia Hx of radiation therapy Hiatal hernia PONV (postoperative nausea and vomiting) Anemia History of kidney stones Proctitis Arthritis Anxiety Hyperparathyroidism Lung cancer GERD (gastroesophageal reflux disease) Asthma-COPD overlap syndrome Pulmonary hypertension Functional capacity: uses cane/walker Family History Family History Mother Breast cancer Family history of problems with anesthesia: No Surgical History Surgical History Hx of cardiac catheterization Hx of varicose vein ligation and stripping History of lumpectomy of both breasts History of right inguinal hernia repair History of lithotripsy History of lobectomy of lung Hx of colonoscopy History of esophagogastroduodenoscopy History of Problems with Anesthesia: Yes (ponv and delayed emergence ) Social History Household Members: Family Household Members Other:: Sister Are you a primary career development counselor to a significant other at home: Yes (sister with Down's dementia) Do you presently have visiting nurse or other home services: No Patient Tobacco Use Status: Former Tobacco user Quit Date: 1998 Tobacco use type: Cigarette Meds Allergies Allergy/AdvReac Type Severity Reaction Status Date / Time codeine Allergy Severe nausea Verified 03/01/23 14:51 Penicillins Allergy Severe Anaphylaxis Verified 03/01/23 14:51 sulfamethoxazole Allergy Severe HIVES/RASH/ Verified 03/01/23 14:51 [From BACTRIM] SWELLING Home Medications Medication Instructions Recorded Confirmed Last Taken Type alprazolam 0.25 mg tablet 0.25 mg PO TID PRN Anxiety 10/06/20 02/01/23 05/09/21 History aspirin 81 mg tablet,delayed 81 mg PO DAILY 10/06/20 02/01/23 05/08/21 History release (Adult Aspirin Regimen) biotin 2,500 mcg capsule 5 mg PO DAILY 10/06/20 02/01/23 Unknown History coconut oil 1,000 mg capsule 1,000 mg PO DAILY 10/06/20 02/01/23 Unknown History hydrochlorothiazide 12.5 mg capsule 37.5 mg PO DAILY 10/06/20 02/01/23 Unknown History mesalamine 1,000 mg rectal 1,000 mg GA BEDTIME PRN Rectal 10/06/20 02/01/23 Unknown History suppository Discomfort multivitamin 1 tab PO DAILY 10/06/20 02/01/23 Unknown History omeprazole 20 mg capsule,delayed 20 mg PO BID 10/06/20 02/01/23 05/09/21 History release clobetasol 0.05 % topical ointment g topical 12/06/20 01/08/23 Unknown History acetaminophen 500 mg tablet 1,000 mg PO Q6H PRN Pain 05/03/21 02/01/23 05/09/21 History ferrous sulfate 28 mg iron tablet 28 mg PO DAILY 05/03/21 02/01/23 05/08/21 History furosemide 20 mg tablet 20 mg PO DAILY 08/09/21 02/01/23 Unknown History letrozole 2.5 mg tablet 2.5 mg PO DAILY 08/09/21 02/01/23 Unknown History potassium chloride 20 mEq 20 meq PO DAILY 11/20/22 02/01/23 Unknown History tablet,extended release Exam Airway Mallampati Class: III Loose/Missing/Broken Teeth: Yes Assessment and Plan Assessment Anesthesia Assessment: Anesthesia Plan Discussed Final Anesthetic Review Family History of Problems with Anesthesia: No History of Problems with Anesthesia: Yes (ponv and delayed emergence ) NPO: Yes ASA Class: IV Final Preanesthetic Review: Meds/Allgs Chart Reviewed, Consent Obtained/Reviewed and Anes Risks/Benef Reviewed Patient Risk: High Procedure Risk: Intermediate Anesthetic Plan Anesthetic Plan: GA and Agree w/ Assess. and Plan Disposition: Standard PACU
[2023-02-05] VITALS (10 sets, daily range): BP systolic 130–168; BP diastolic 59–94; PULSE 79–93; RESP 16–36; TEMP 36.2–36.3; O2SAT 95–100; BMI 24.2
[2023-02-05] MEDS: Lactated Ringers 1,000 ML 100 ML IVCONT (12:41)
--- NOTE | 2023-02-05 14:20 | P.OP_ITS ---
Operative Note Operative Note Date of Service: 02/05/23 Narrative: Operative note by [facility] Preoperative diagnosis: Left leg varicose veins with inflammation Postoperative diagnosis: Same Procedure:1. Left leg microphlebectomy 2. Ligation of left leg venous cluster Surgeon:Jose Aponte M.D. Lead Clinical Research Coordinator: Shahla Anesthesia: General Specimens: 1 Drains: None Estimated blood loss: 100 mL Indications: Complex 73-year-old female who had prior history of ablation is at an outside institution has significant large varicosities which have been a source of pain and discomfort. She now presents for microphlebectomy. The patient has signed the informed consent after reviewing risks, complications, benefits, and alternatives previously discussed with the patient. The patient was given the opportunity to ask any additional questions or voice any concerns. All questions were answered to the patient's satisfaction. Procedure in detail: Varicose veins were marked in the standing position on the left leg and the patient was then placed in the supine position. The left lower extremity was prepared and draped to allow knee flexion in the sterile field. The patient had large superficial varicose veins with significant symptoms of pain. It was ther efore determined to perform microphlebectomies of the clusters of varicose veins. The patient had bulging varicose veins which were previously marked in the standing position. A small stab incision was made longitudinally directly overlying the varicose vein in the calf and the varicose vein was grasped with a hemostat aided by a vein hook. It was then dissected as far proximally and distally as possible and avulsed. A total of 21 stab incisions were made and the procedure of stab phlebectomies was repeated 21 times. In addition in the left medial thigh there was a large cluster. Base was i dentified and ligated with a 3-0 Polysorb. Residual varicosities were removed. Hemostasis was checked and stab incision sites were closed with steri-strips and sterile dressing was given with gauze and krilex wrap followed by an kurt bandage. There were no complications and blood loss was minimal. Post-Op instructions were given and a follow-up appointment was recommended. This note is constructed using voice recognition software. While every effort has been made to ensure accuracy, live truck technician errors may have been included. Thank you for allowing me to participate in the care of your patient. Yours sincerely, Jose Aponte MD, FACS, R.P.V.I.
[2023-02-05] MEDS: ondansetron HCL 4 MG/2 ML VIAL IVPUSH (14:34)
[2023-02-05] MEDS: ALPRAZolam 0.25 MG TABLET PO (15:37)
== END 2023-02-05 17:08 | disposition home or self-care (01) ==
PROVIDERS: PCP Internal Medicine; Visit Provider Surgery Vascular Surgery
PROC: (CPT 37766; principal; 2023-02-05 13:10)
DX: I83.12 Varicose veins of left lower extremity with inflammation (principal); M79.605 Pain in left leg; M79.89 Other specified soft tissue disorders; D64.9 Anemia, unspecified; J44.9 Chronic obstructive pulmonary disease, unspecified; I10 Essential (primary) hypertension; I27.20 Pulmonary hypertension, unspecified; C50.919 Malignant neoplasm of unspecified site of unspecified female breast; Z79.811 Long term (current) use of aromatase inhibitors; Z85.118 Personal history of other malignant neoplasm of bronchus and lung; Z92.3 Personal history of irradiation; Z88.0 Allergy status to penicillin; Z88.2 Allergy status to sulfonamides; Z88.5 Allergy status to narcotic agent; Z87.891 Personal history of nicotine dependence; Z98.890 Other specified postprocedural states; Z79.82 Long term (current) use of aspirin; Z79.899 Other long term (current) drug therapy
CPT/HCPCS: 37766; 37785; 88304; J0131; J2250; J2371; J2405; J2795

== ENCOUNTER → 2023-02-05 11:45 | Outpatient (BNV) | payer MEDICARE, SELFPAY | PROVIDERS: PCP Internal Medicine; Visit Provider Surgery Vascular Surgery | DX: I83.12 Varicose veins of left lower extremity with inflammation (principal) | CPT/HCPCS: 37766; 37785 ==

== ENCOUNTER 2023-02-20 15:11 | Outpatient (AMB) | payer MEDICARE, SELFPAY ==
--- NOTE | 2023-02-20 15:13 | MHC.OFFVIS ---
Intake Intake Visit Reasons: 2 week follow up OR Micro Intake Note: 2 week follow up Left Micro 02/05/23, pt states she is not doing well, has bleeding and inflammation and drainage. Has only showered once. Pt states steri strips are embedded , pt states leg is still swollen. Accompanied by: Self / Same As Patient Allergies codeine Allergy (Severe, Verified 02/20/23 15:16) nausea Penicillins Allergy (Severe, Verified 02/20/23 15:16) Anaphylaxis sulfamethoxazole [From BACTRIM] Allergy (Severe, Verified 02/20/23 15:16) HIVES/RASH/SWELLING HPI 2 week follow up OR Micro HPI Details Very pleasant 73-year-old female presents for follow-up regarding venous disease. She had undergone left leg microphlebectomy. In general appears to be doing relatively well. She has developed an area in the medial thigh that has been warm and hot to touch. She now presents for follow-up. [facility] Medical History Breast cancer Essential hypertension Hypercalcemia Slow to wake up after anesthesia Hx of radiation therapy Hiatal hernia PONV (postoperative nausea and vomiting) Anemia History of kidney stones Proctitis Arthritis Anxiety Hyperparathyroidism Lung cancer GERD (gastroesophageal reflux disease) Asthma-COPD overlap syndrome Pulmonary hypertension Surgical History Hx of cardiac catheterization Hx of varicose vein ligation and stripping History of lumpectomy of both breasts History of right inguinal hernia repair History of lithotripsy History of lobectomy of lung Hx of colonoscopy History of esophagogastroduodenoscopy Family History Mother Breast cancer Social History Household Members: Family Household Members Other:: Sister Are you a primary patient care provider to a significant other at home: Yes (sister with Down's dementia) Do you presently have visiting nurse or other home services: No Patient Tobacco Use Status: Former Tobacco user Quit Date: 1998 Tobacco use type: Cigarette Review of Systems Const Reports as per HPI ENT Reports no additional complaints Card Denies chest pain, Denies chest pain at rest and Denies chest pain with activity Resp Denies chest congestion and Denies cough GI Reports no additional complaints Musc Details: pain over varicosities, aching of lower extremities, swelling, cramping, heaviness and tiredness, itching Denies abnormal gait Skin/Breast Reports pruritus and Denies wounds Neuro Reports no additional complaints and Denies abnormal gait Psych Denies no additional complaints Physical Exam Const General: cooperative, healthy appearing and comfortable Orientation/consciousness: oriented to person, oriented to place and oriented to time Neck Carotids: no bruits Chest Chest palpation & inspection: normal inspection of the chest and normal palpation of entire chest wall Resp Effort & Inspection: normal respiratory effort and able to speak in complete sentences Cardio Rate: regular rate Heart sounds: S1 normal heart sound present and S2 normal heart sound present Peripheral pulses: Peripheral pulses 2+ throughout GI Inspection: Yes normal to inspection Skin Other: +2 edema, large rope-like varicosities greater than 4 mm CEAP Classification C4 - skin color changes Ep - Etiology Primary As - superficial veins P - reflux Left medial thigh concerning for cellulitis General skin exam: dry skin Neuro General: oriented to person, oriented to place and oriented to time Extrem Right lower extremity: full ROM, normal capillary refill and edema Left lower extremity: full ROM, normal capillary refill and edema Psych Mental Status: mental status grossly normal Assessment & Plan Assessment & Plan (1) Varicose veins of left lower extremity with inflammation: Comment: 02/05/2023 - left leg microphlebectomy Code(s): I83.12 - Varicose veins of left lower extremity with inflammation Plan: In short patient is status post left leg microphlebectomy in general appears to be doing relatively well. The concern is there is a little area of cellulitis. I would like to treat this with doxycycline and have her come back and see me next week. I would like to get this resolved before her eye surgery. We can then schedule her for her right leg. Thank you for allowing us to assist in her care. If there are any questions or concerns please do not hesitate to contact us Medications: New doxycycline hyclate 100 mg PO DAILY 14 caps 0RF I83.12 - Varicose veins of left lower extremity with inflammation Coding Level of Care Code Est Pt Level 4 (56178) Diagnoses Varicose veins of left lower extremity with inflammation I83.12
== END 2023-02-20 15:58 | disposition home or self-care (01) ==
PROVIDERS: PCP Internal Medicine; Visit Provider Surgery Vascular Surgery
DX: L03.116 Cellulitis of left lower limb (principal); I83.12 Varicose veins of left lower extremity with inflammation
CPT/HCPCS: 99214

== ENCOUNTER → 2023-02-20 15:11 | Outpatient (BNVA) | payer MEDICARE, SELFPAY | PROVIDERS: PCP Internal Medicine; Visit Provider Surgery Vascular Surgery | DX: I83.12 Varicose veins of left lower extremity with inflammation (principal) | CPT/HCPCS: 99212 ==

== ENCOUNTER 2023-03-01 14:40 | Outpatient (AMB) | payer MEDICARE, SELFPAY ==
--- NOTE | 2023-03-01 14:44 | A.OFFVIS_ITS ---
Intake Intake Visit Reasons: Follow Up Leg Check Intake Note: 1 week follow up leg check s/p Left LE micro 02/05/23 in the OR. Pt was given Abx for ? cellulitis. Pt states just within the past 2 days it has started to do better. scheduled for cataract surgery on Sunday Accompanied by: Self / Same As Patient Allergies codeine Allergy (Severe, Verified 03/01/23 14:51) nausea Penicillins Allergy (Severe, Verified 03/01/23 14:51) Anaphylaxis sulfamethoxazole [From BACTRIM] Allergy (Severe, Verified 03/01/23 14:51) HIVES/RASH/SWELLING HPI Follow Up Leg Check HPI Details 73-year-old female presents for follow-u p regarding left leg microphlebectomy. Postprocedure she did develop some mild cellulitis and was treated with doxycycline. She appears to be doing relatively well. It appears to be resolving. In general she feels that she is doing fairly well. [facility] Medical History Breast cancer Essential hypertension Hypercalcemia Slow to wake up after anesthesia Hx of radiation therapy Hiatal hernia PONV (postoperative nausea and vomiting) Anemia History of kidney stones Proctitis Arthritis Anxiety Hyperparathyroidism Lung cancer GERD (gastroesophageal reflux disease) Asthma-COPD overlap syndrome Pulmonary hypertension Surgical History Hx of cardiac catheterization Hx of varicose vein ligation and stripping History of lumpectomy of both breasts History of right inguinal hernia repair History of lithotripsy History of lobectomy of lung Hx of colonoscopy History of esophagogastroduodenoscopy Family History Mother Breast cancer Social History Household Members: Family Household Members Other:: Sister Are you a primary career development associate to a significant other at home: Yes (sister with Down's dementia) Do you presently have visiting nurse or other home services: No Patient Tobacco Use Status: Former Tobacco user Quit Date: 1998 Tobacco use type: Cigarette Review of Systems Const Reports as per HPI ENT Reports no additional complaints Card Denies chest pain, Denies chest pain at rest and Denies chest pain with activity Resp Denies chest congestion and Denies cough GI Reports no additional complaints Musc Details: pain over varicosities, aching of lower extremities, swelling, cramping, heaviness and tiredness, itching Denies abnormal gait Skin/Breast Reports pruritus and Denies wounds Neuro Reports no additional complaints and Denies abnormal gait Psych Denies no additional complaints Physical Exam Const General: cooperative, healthy appearing and comfortable Orientation/consciousness: oriented to person, oriented to place and oriented to time Neck Carotids: no bruits Chest Chest palpation & inspection: normal inspection of the chest and normal palpation of entire chest wall Resp Effort & Inspection: normal respiratory effort and able to speak in complete sentences Cardio Rate: regular rate Heart sounds: S1 normal heart sound present and S2 normal heart sound present Peripheral pulses: Peripheral pulses 2+ throughout GI Inspection: Yes normal to inspection Skin Other: +2 edema, large rope-like varicosities greater than 4 mm Left leg incisions healing well General skin exam: dry skin Neuro General: oriented to person, oriented to place and oriented to time Extrem Right lower extremity: full ROM, normal capillary refill and edema Left lower extremity: full ROM, normal capillary refill and edema Psych Mental Status: mental status grossly normal Assessment & Plan Assessment & Plan (1) Varicose veins of left lower extremity with inflammation: Comment: 02/05/2023 - left leg microphlebectomy Code(s): I83.12 - Varicose veins of left lower extremity with inflammation Plan: In short patient has undergone left leg microphlebectomy. Incisions appear to be doing well in cellulitis appears to be improved. She is stable from my perspective for cataract surgery. I will plan for 3 month follow-up after cataract surgery to assess further interventions. Thank you for allowing us to participate in her care. If there are any questions or concerns please do not hesitate to contact us. Coding Level of Care Code Est Pt Level 3 (79769) Diagnoses Varicose veins of left lower extremity with inflammation I83.12
== END 2023-03-01 15:07 | disposition home or self-care (01) ==
PROVIDERS: PCP Internal Medicine; Visit Provider Surgery Vascular Surgery
DX: I83.12 Varicose veins of left lower extremity with inflammation (principal); Z48.812 Encounter for surgical aftercare following surgery on the circulatory system
CPT/HCPCS: 99024

== ENCOUNTER → 2023-03-01 14:40 | Outpatient (BNVA) | payer MEDICARE, SELFPAY | PROVIDERS: PCP Internal Medicine; Visit Provider Surgery Vascular Surgery | DX: I83.12 Varicose veins of left lower extremity with inflammation (principal) | CPT/HCPCS: 99212 ==

== ENCOUNTER 2023-03-12 16:31 | Outpatient (REF) | payer MEDICARE, SELFPAY ==
--- NOTE | ~2023-03-12 | US_ITS ---
EXAMINATION: US THYROID CLINICAL INFORMATION: Nontoxic single thyroid nodule. COMPARISON: None available. TECHNIQUE: Linear transducer robertson-scale and color Doppler examination with attention to the region of the thyroid. FINDINGS: SIZE: Measurements of the thyroid lobes and nodules are given in sagittal, anteroposterior and transverse dimensions respectively. Right Thyroid Lobe: 4.1 x 1.5 x 1.6 cm, volume 5.1 mL. Parenchyma: The gland echotexture is homogeneous. Thyroid vascularity is normal. Left Thyroid Lobe: 4.5 x 1.7 x 1.4 cm, volume 5.6 mL. Parenchyma: The gland echotexture is homogeneous. Thyroid vascularity is normal. Isthmus: 0.3 cm in maximum AP dimension. Estimated total number of nodules greater than or equal to 1 cm: 0. Communications Attendant nodules are described as follows: 1. Location: Right superior. Size: 0.5 x 0.4 x 0.4 cm, volume 0.043 mL. Nodule characteristics: Composition: Solid (2). Echogenicity: Hypoechoic (2). Shape: Not taller than wide (0). Margins: Smooth (0). Echogenic Foci: None (0). ACR TI-RADS total points: 4 ACR TI-RADS category: 4 2. Location: Right mid. Size: 0.7 x 0.4 x 0.5 cm, volume 0.072 mL. Nodule characteristics: Composition: Solid (2). Echogenicity: Isoechoic (1). Shape: Not taller than wide (0). Margins: Ill-defined (0). Echogenic Foci: Macrocalcifications (1). ACR TI-RADS total points: 4 ACR TI-RADS category: 4 3. Location: Left superior. Size: 0.5 x 0.3 x 0.4 cm, volume 0.034 mL. Nodule characteristics: Composition: Spongiform (0). Echogenicity: Anechoic (0). Shape: Not taller than wide (0). Margins: Smooth (0). Echogenic Foci: None (0). ACR TI-RADS total points: 0 ACR TI-RADS category: 1 4. Location: Left mid. Size: 0.4 x 0.3 x 0.3 cm, volume 0.020 mL. Nodule characteristics: Composition: Spongiform (0). Echogenicity: Anechoic (0). Shape: Not taller than wide (0). Margins: Smooth (0). Echogenic Foci: None (0). ACR TI-RADS total points: 0 ACR TI-RADS category: 1 5. Location: Left inferior. Size: 0.8 x 0.6 x 0.9 cm, volume 0.22 mL. Nodule characteristics: Composition: Mixed cystic and solid (1). Echogenicity: Isoechoic (1). Shape: Not taller than wide (0). Margins: Ill-defined (0). Echogenic Foci: None (0). ACR TI-RADS total points: 2 ACR TI-RADS category: 2 NODES: No lymphadenopathy is seen in the tissue surrounding the thyroid gland. US/US thyroid IMPRESSION: A 0.7 cm and 0.5 cm right TR 4 thyroid nodules. ACR TI-RADS RECOMMENDATION REFERENCE: Ultrasound-guided fine-needle aspiration, followup ultrasound, no further follow up. * TR1 (0 point) and TR2 (2 points): No FNA or follow up. * TR3 (3 points): FNA if more than or equal to 2.5 cm in maximum dimension, followup ultrasound in 1, 3 and 5 years if 1.5 to 2.4 cm in maximum dimension. * TR4 (4-6 points): FNA if more than or equal to 1.5 cm in maximum dimension, followup ultrasound in 1, 2, 3 and 5 years if 1 to 1.4 cm in maximum dimension. * TR5 (more than or equal to 7 points): FNA if more than or equal to 1 cm in maximum dimension, followup ultrasound every year for 5 years if 0.5 to 0.9 cm in maximum dimension. * TR3, TR4 or TR5 nodules that are below the size threshold for followup receive no follow up.
== END 2023-03-12 16:32 | disposition home or self-care (01) ==
LOC: HO.US 16:31
PROVIDERS: PCP Internal Medicine; Visit Provider Internal Medicine
DX: E04.1 Nontoxic single thyroid nodule (principal)
CPT/HCPCS: 76536

== ENCOUNTER 2023-04-10 11:29 | Outpatient (AMB) | payer MEDICARE, SELFPAY ==
--- NOTE | 2023-04-10 11:30 | MHC.OFFVIS ---
Intake Vital Signs 04/10/23 11:31 Weight 150 lb Intake Visit Reasons: COPD follow-up Intake Note: pt is on the phone for follow up and needs a refill on albuterol for her nebulizer, when she gets worked up she gets a little short of breath. Color Depositing Machine Tender Required: No Allergies codeine Allergy (Severe, Verified 04/10/23 11:38) nausea Penicillins Allergy (Severe, Verified 04/10/23 11:38) Anaphylaxis sulfamethoxazole [From BACTRIM] Allergy (Severe, Verified 04/10/23 11:38) HIVES/RASH/SWELLING Medication List - Last Reconciled 04/10/23 by Khai Sexton MD acetaminophen 1,000 mg PO Q6H PRN albuterol sulfate 90 mcg/actuation 2 puffs inhalation Q4-6H PRN albuterol sulfate 2.5 mg (6 mL) inhalation Q4-6H PRN 30 days alprazolam 0.25 mg PO TID PRN aspirin (Adult Aspirin Regimen) 81 mg PO DAILY biotin 5 mg PO DAILY clobetasol 0.05% grams topical coconut oil 1,000 mg PO DAILY diltiazem HCl 120 mg PO DAILY ferrous sulfate 28 mg PO DAILY fluticasone propion-salmeterol 250-50 mcg/dose (Wixela Inhub) 1 ea inhalation BID furosemide 20 mg PO DAILY hydrochlorothiazide 37.5 mg PO DAILY letrozole 2.5 mg PO DAILY mesalamine 1,000 mg AR BEDTIME PRN multivitamin 1 tab PO DAILY omeprazole 20 mg PO BID potassium chloride ER 20 mEq PO DAILY Do you need a note to return to daycare/school/sports/work: No HPI COPD follow-up HPI Details TELE -VISIT DAJA, 73 YEARS OLD VERY, PLEASANT FEMALE COULD NOT COME TO THE OFFICE SO REQUESTED TELE VISIT, SHE HAS TO STAY HOME TO TAKE CARE OF HER DISABLED SISTER, AND ALSO HER . HER BREATHING HAS BEEN FAIRLY STABLE AND CONTROLLED, LONG SHE HAS BEEN USING WIXELA 250-50 TWICE A DAY. SHE DOES HAVE A NEBULIZER AND USES ALBUTEROL IN THE NEBULIZER ONLY ONCE IN A WHILE. SHE IS LOOKING FOR HER PRESCRIPTION FOR ALBUTEROL HFA FOR P.R.N. USE WHEN SHE IS OUTDOORS. SHE HAS LOT OF MEDICAL ISSUES BUT BREATHING HAS BEEN UNDER CONTROL AND STABLE. [facility] Medical History Breast cancer Essential hypertension Hypercalcemia Slow to wake up after anesthesia Hx of radiation therapy Hiatal hernia PONV (postoperative nausea and vomiting) Anemia History of kidney stones Proctitis Arthritis Anxiety Hyperparathyroidism Lung cancer GERD (gastroesophageal reflux disease) Asthma-COPD overlap syndrome Pulmonary hypertension Surgical History Hx of cardiac catheterization Hx of varicose vein ligation and stripping History of lumpectomy of both breasts History of right inguinal hernia repair History of lithotripsy History of lobectomy of lung Hx of colonoscopy History of esophagogastroduodenoscopy Family History Mother Breast cancer Household Members: Family Household Members Other:: Sister Are you a primary critical care registered nurse to a significant other at home: Yes (sister with Down's dementia) Do you presently have visiting nurse or other home services: No Patient Tobacco Use Status: Former Tobacco user Quit Date: 1998 Tobacco use type: Cigarette Review of Systems Const All systems reviewed & are unremarkable except as noted in HPI and below Eyes Reports no additional complaints ENT Reports no additional complaints Card Reports no additional complaints Resp Reports as per HPI GI Reports GI cramping (off and on ) and Reports diarrhea (off and on ) Reports no additional complaints Musc Reports no additional complaints Skin/Breast Reports system reviewed and no additional complaints, except as documented Neuro Reports no additional complaints Psych Reports no additional complaints Physical Exam Vital Signs: TELE VISIT SO, NO PHYSICAL EXAMINATION Assessment & Plan Assessment & Plan (1) Asthma-COPD overlap syndrome: Comment: SEVERE OBSTRUCTIVE LUNG DISEASE, WITH SIGNIFICANT IMPROVEMENT AFTER BRONCHODILATOR THERAPY( ASTHMA-COPD OVERLAP SYNDROME ) DOING VERY WELL WITH THE CURRENT MEDICATION 9 WIXELA )AND HAS SUBJECTIVELY IMPROVED. ADVISED TO CONTINUE: WIXELA 250-50 ONE INH BID ( Q 12 HRS ) RE-PRESCRIBED PROAIR TO USE 2 PUFFS Q 4-6 HOURS P.R.N. ALSO HAS NEBULIZER AND ALBUTEROL INHALATION SOLUTION TO USE P.R.N. WHEN SHE IS IN THE HOUSE. Code(s): J44.9 - Chronic obstructive pulmonary disease, unspecified (2) Pulmonary hypertension: Comment: PULMONARY HYPERTENSION MOST LIKELY CAUSED BY COPD. WITH APPROPRIATE TREATMENT IT IS EXPECTED TO IMPROVE. Code(s): I27.20 - Pulmonary hypertension, unspecified Telehealth Telehealth Minutes spent on Phone/Video with Pt.: 20 Coding Level of Care Code Tele Est Pt Level 3 (53994) Diagnoses Asthma-COPD overlap syndrome J44.9 Pulmonary hypertension I27.20
== END 2023-04-10 11:45 | disposition home or self-care (01) ==
LOC: HO.HPS 11:29
PROVIDERS: PCP Internal Medicine; Visit Provider Internal Medicine
DX: J44.9 Chronic obstructive pulmonary disease, unspecified (principal); I27.20 Pulmonary hypertension, unspecified
CPT/HCPCS: 99213

== ENCOUNTER → 2023-04-10 11:29 | Outpatient (BNVA) | payer MEDICARE, SELFPAY | PROVIDERS: PCP Internal Medicine; Visit Provider Internal Medicine ==

== ENCOUNTER 2023-04-19 15:09 | Outpatient (REF) | payer MEDICARE, SELFPAY ==
--- NOTE | ~2023-04-19 | MM_ITS ---
EXAMINATION: DXA VERTEBRAL FRACTURE ASSESSMENT CLINICAL INFORMATION: Osteoporosis COMPARISON: None available. TECHNIQUE: Your patient completed a vertebral fracture assessment using the [employer] DXA system (software version: 14.10) manufactured by [employer]. The following summarizes the results of our evaluation. LVA MORPHOMETRY RESULTS: Evaluation of the thoracolumbar spine from T5 through L4 was performed. Image quality is good. There is no focal vertebral body compression demonstrated. No definite significant loss of height or fracture appreciated. The lowest Z score is -1.2 involving L2.. The highest Z score is 2.5 involving T6 vertebral body.. MM/XR DEXA vertrebral fracture IMPRESSION: No significant vertebral body deformity appreciated. RECOMMENDATIONS: All patients should ensure an adequate intake of dietary calcium (1200 mg/d) and vitamin D (400-800 IU/d). Effective therapies are now available in the form of bisphosphonates, (alendronate, ibandronate, risedronate, zoledronic acid), antiresorptive agents (calcitonin, estrogen + progesterone and raloxifene) and anabolic agent (teriparatide). These therapies may reduce vertebral, hip and other fractures by up to 50%. FOLLOW UP: People with diagnosed cases of osteoporosis, high risk for fracture, or current vertebral fractures should have regular bone mineral density tests. The frequency of followup vertebral fracture assessment tests should be determined based on clinical circumstances. Often times, testing frequency will be based on rapidly progressing disease, or the addition or elimination of therapy to treat the disease.
== END 2023-04-19 15:10 | disposition home or self-care (01) ==
LOC: HO.MAMMO 15:09
PROVIDERS: PCP Internal Medicine; Visit Provider Internal Medicine Rheumatology
DX: Z13.820 Encounter for screening for osteoporosis (principal); Z78.0 Asymptomatic menopausal state; M81.0 Age-related osteoporosis without current pathological fracture
CPT/HCPCS: 77086

== ENCOUNTER → 2023-05-15 15:00 | Outpatient (BNV) | payer MEDICARE, SELFPAY | PROVIDERS: PCP Internal Medicine; Visit Provider Radiology Diagnostic Radiology | DX: Z85.3 Personal history of malignant neoplasm of breast (principal) | CPT/HCPCS: 77066; G0279 ==

== ENCOUNTER 2023-05-15 15:17 | Outpatient (REF) | payer MEDICARE, SELFPAY ==
--- NOTE | ~2023-05-15 | MM_ITS ---
EXAMINATION: MM DIAGNOSTIC DIGITAL BREAST TOMOSYNTHESIS, BILATERAL CLINICAL INFORMATION: Year 2 of left postop follow-up protocol, left lumpectomy most recently 05/09/2021. History of bilateral breast CA with bilateral breast conservation therapy. COMPARISON: Mammography: 05/12/2022, 05/09/2021, 03/24/2021, 03/11/2021, 03/12/2020. TECHNIQUE: Digital breast tomosynthesis is performed in both the craniocaudal and mediolateral oblique views along with computer-aided detection (CAD). Synthesized 2D images are generated from the tomosynthesis. In addition to standard views, spot magnification views of both breasts in the CC and ML projections were obtained, as well as added full-field right MLO view, had a full-field left MLO view, and spot compression left 3-D MLO view. FINDINGS: There are scattered areas of fibroglandular density (ACR BI-RADS breast composition Category b). Bilateral distortion, scarring, and trabecular thickening is present in both breasts. No developing mass, new developing distortion, or suspicious calcifications in either breast. There is a biopsy clip in the posterior right breast along the nipple line. There are bilateral scar markers in place. Dystrophic calcification is present in the left breast. MM/MM tomosynthesis diagnostic BI IMPRESSION: There are no findings suspicious for malignancy in either breast. There are stable benign post treatment changes bilaterally. Recommend one-year follow-up diagnostic mammogram to complete three-year postoperative protocol. ASSESSMENT: BI-RADS BI-RADS 2 - Benign Findings RECOMMENDATION: 1 year F/U Results were provided to the patient at time of visit by the technologist. This patient's information was entered into a reminder system with a target due date for their next mammogram.
== END 2023-05-15 15:18 | disposition home or self-care (01) ==
LOC: HO.MAMMO 15:17
PROVIDERS: PCP Internal Medicine; Visit Provider Surgery
DX: Z85.3 Personal history of malignant neoplasm of breast (principal); Z86.000 Personal history of in-situ neoplasm of breast
CPT/HCPCS: 77062; 77066

== ENCOUNTER → 2023-05-24 08:08 | Outpatient (REF) | payer MEDICARE, SELFPAY ==
--- NOTE | ~2023-05-24 | NM_ITS ---
EXAMINATION: NM PARATHYROID SCAN CLINICAL INFORMATION: Hypercalcemia, elevated PTH. COMPARISON: No previous radionuclide parathyroid or thyroid imaging studies are available for comparison. Thyroid ultrasound dated 03/12/2023 is available for comparison. TECHNIQUE: A double radionuclide study of the thyroid bed region and upper chest in multiple projections was performed 4 hours after the oral administration of 930 microcuries I-123 sodium iodide and immediately following the intravenous administration of 30 mCi Tc-99m sestamibi. Repeat imaging was performed 2 hours later. The iodide images were electronically subtracted from the sestamibi images using different weighting factors. FINDINGS: There is homogeneous uptake of radioiodine throughout both lobes. The thyroid gland appears to be normal in size and shape. There are no focal areas of increased or diminished uptake. Technetium 99m sestamibi images demonstrate homogeneous thyroid activity. There are no focal areas of increased or decreased Technetium 99m sestamibi activity. Computer-generated digital subtraction images reveal no evidence of excess sestamibi activity. NM/NM parathyroid IMPRESSION: No evidence of excess sestamibi activity suggestive of parathyroid adenoma or hyperplasia. There is homogeneous uptake of radioiodine in the thyroid gland which is also normal in size and shape.
== END ==
LOC: HO.NUCMED 08:08
PROVIDERS: PCP Internal Medicine; Visit Provider Internal Medicine
DX: E83.52 Hypercalcemia (principal)
CPT/HCPCS: 78070; A9500; A9516

== ENCOUNTER 2023-07-19 17:05 | Outpatient (REF) | payer MEDICARE, SELFPAY ==
[2023-07-19 17:15] LABS: MANUAL DIFF FLAG NO
[2023-07-19 17:38] LABS: Basophils Absolute Auto 0.1 X10*3/uL (0.0-0.2); Eosinophils Absolute Auto 0.2 X10*3/uL (0.0-0.4); Hematocrit 42.3 % (37.0-47.0); Hemoglobin 13.3 g/dl (12.0-16.0); Imm Gran Abs Auto 0.02 X10*3/uL (0.00-0.03); Imm Gran Pct Auto 0.3 % (0.0-0.4); Lymphocytes Absolute Auto 1.9 X10*3/uL (1.2-4.9); Lymphocytes Percent Auto 26.4 % (20-40); Mean Corpuscular HGB Conc 31.4 g/dl (31.0-35.0); Mean Corpuscular Volume 98.6 fL (80.0-98.0); Mean Platelet Volume 10.4 fL (9.4-12.3); Monocytes Absolute Auto 0.7 X10*3/uL (0.1-1.2); Monocytes Percent Auto 9.3 % (2-11); Neutrophils Absolute Auto 4.4 x10*3/uL (2.0-8.3); Platelet Count 254 X10*3/uL (160-400); Red Blood Count 4.29 X10*6/uL (4.20-5.50); Red Cell Distribution Width 12.4 % (11.0-16.0); White Blood Count 7.4 X10*3/uL (4.8-10.8)
[2023-07-19 18:23] LABS: Alanine Aminotransferase 14 U/L (0-31); Albumin Level 4.1 g/dL (3.5-5.0); Alkaline Phosphatase 86 U/L (39-117); Anion Gap 8 (12-20); Aspartate Amino Transferase 15 U/L (5-31); Bilirubin Total 0.4 mg/dL (0.0-1.0); Blood Urea Nitrogen 12 mg/dL (9-16); Carbon Dioxide 28 mmol/L (22-29); Chloride 109 mmol/L (96-108); Glucose Random 99 mg/dL (60-115); Potassium 4.2 mmol/L (3.3-5.1); Sodium 141 mmol/L (135-145); Total Protein 6.9 g/dL (6.5-8.0)
[2023-07-19 19:13] LABS: Estimated Glomerular Filt Rate > 60
== END 2023-07-19 17:06 | disposition home or self-care (01) ==
LOC: HO.LAB 17:05
PROVIDERS: PCP Internal Medicine; Visit Provider Internal Medicine
DX: I10 Essential (primary) hypertension (principal); R60.9 Edema, unspecified; J45.909 Unspecified asthma, uncomplicated
CPT/HCPCS: 36415; 80053; 85025

== ENCOUNTER 2023-09-10 15:34 | Outpatient (REF) | payer MEDICARE, SELFPAY ==
[2023-09-10 15:52] LABS: MANUAL DIFF FLAG NO
[2023-09-10 16:04] LABS: Basophils Percent Auto 0.5 % (0-2); Eosinophils Absolute Auto 0.1 X10*3/uL (0.0-0.4); Eosinophils Percent Auto 1.6 % (0-4); Hematocrit 42.1 % (37.0-47.0); Hemoglobin 13.4 g/dl (12.0-16.0); Imm Gran Abs Auto 0.03 X10*3/uL (0.00-0.03); Imm Gran Pct Auto 0.3 % (0.0-0.4); Lymphocytes Absolute Auto 2.2 X10*3/uL (1.2-4.9); Lymphocytes Percent Auto 24.9 % (20-40); Mean Corpuscular HGB Conc 31.8 g/dl (31.0-35.0); Mean Corpuscular Hemoglobin 30.2 pg (27.0-33.0); Mean Corpuscular Volume 94.8 fL (80.0-98.0); Monocytes Absolute Auto 0.7 X10*3/uL (0.1-1.2); Monocytes Percent Auto 7.6 % (2-11); Neutrophils Absolute Auto 5.6 x10*3/uL (2.0-8.3); Neutrophils Percent Auto 65.1 % (45-73); Platelet Count 215 X10*3/uL (160-400); Red Blood Count 4.44 X10*6/uL (4.20-5.50); Red Cell Distribution Width 13.2 % (11.0-16.0); White Blood Count 8.6 X10*3/uL (4.8-10.8)
[2023-09-10 16:36] LABS: Estimated Average Glucose 114 mg/dL; Hemoglobin A1c % 5.6 % (<6.0)
[2023-09-10 17:03] LABS: Alanine Aminotransferase 24 U/L (0-31); Alkaline Phosphatase 59 U/L (39-117); Anion Gap 12 (12-20); Aspartate Amino Transferase 17 U/L (5-31); Bilirubin Total 0.6 mg/dL (0.0-1.0); Blood Urea Nitrogen 12 mg/dL (9-16); Calcium 9.5 mg/dL (8.4-10.2); Carbon Dioxide 24 mmol/L (22-29); Chloride 109 mmol/L (96-108); Estimated Glomerular Filt Rate > 60; Glucose Random 87 mg/dL (60-115); Sodium 141 mmol/L (135-145); Total Protein 6.8 g/dL (6.5-8.0)
[2023-09-10 19:10] LABS: Microalbum/Creatinine Ratio Ur 37.5 ug/mg cr (<30)
== END 2023-09-10 15:35 | disposition home or self-care (01) ==
LOC: HO.LAB 15:34
PROVIDERS: PCP Internal Medicine; Visit Provider Internal Medicine Medical Oncology
DX: D05.11 Intraductal carcinoma in situ of right breast (principal); E66.3 Overweight; M79.7 Fibromyalgia
CPT/HCPCS: 36415; 80053; 82043; 82570; 83036; 85025

== ENCOUNTER 2023-09-18 16:17 | Outpatient (AMB) | payer MEDICARE, SELFPAY ==
--- NOTE | 2023-09-18 16:20 | MHC.OFFVIS ---
Vital Signs 09/18/23 16:21 Height 5 ft 6 in Weight 148 lb 12.992 oz BMI 24.0 BP 130/58 L Blood Pressure Location Lt brachial Position Sitting Pulse 90 Pulse Source Pulse Oximeter Pulse Oximetry (%) 95 Oxygen Delivery Method Room Air Intake Visit Reasons: COPD Intake Note: pt is here for follow up and has a lot of medical issues occurring for the past 17 months. Water retention, cataract issues. she is having stating only short of breath at times and it occurs with weakness. pt will be having a surgery for parathyroid in October Oil Refiner Required: No Allergies codeine Allergy (Severe, Verified 09/18/23 16:51) nausea Penicillins Allergy (Severe, Verified 09/18/23 16:51) Anaphylaxis sulfamethoxazole [From BACTRIM] Allergy (Severe, Verified 09/18/23 16:51) HIVES/RASH/SWELLING Medication List - Last Reconciled 09/18/23 by Khai Sexton MD acetaminophen 1,000 mg PO Q6H PRN albuterol sulfate 90 mcg/actuation 2 puffs inhalation Q4-6H PRN albuterol sulfate 2.5 mg (6 mL) inhalation Q4-6H PRN 30 days alendronate (Fosamax) 70 mg PO QWEEK alprazolam 0.25 mg PO TID PRN aspirin (Adult Aspirin Regimen) 81 mg PO DAILY carvedilol 6.25 mg PO BID clobetasol 0.05% grams topical ferrous sulfate 28 mg PO DAILY fluticasone propion-salmeterol 250-50 mcg/dose (Wixela Inhub) 1 ea inhalation BID furosemide 40 mg PO DAILY letrozole 2.5 mg PO DAILY mesalamine 1,000 mg MN BEDTIME PRN multivitamin 1 tab PO DAILY omeprazole 20 mg PO BID potassium chloride ER 10 mEq PO QID Do you need a note to return to daycare/school/sports/work: No HPI HPI COPD: Details: ELBERT IS 73 YEARS OLD FEMALE. SHE IS HERE FOR FOLLOW-UP FOR HER COPD. DAJA HAS MULTIPLE MEDICAL ISSUES. SHE ALSO TAKES CARE OF SISTER WHO HAS ADVANCED CEREBRAL PALSY. SHE GETS TIRED. TODAY HER MAIN COMPLAINT IS THAT SHORTNESS OF BREATH AND GENERAL WEAKNESS IS OUT OF PROPORTION TO THE AMOUNT OF WORK THAT SHE DOES. SOMETIME WHEN SHE USES THE RESCUE INHALER SHE FEELS BETTER. SHE DOES USE WIXELA 250-50 1 INHALATION B.I.D.. SHE DENIES ANY CHEST INFECTION. [facility] Medical History Breast cancer Essential hypertension Hypercalcemia Slow to wake up after anesthesia Hx of radiation therapy Hiatal hernia PONV (postoperative nausea and vomiting) Anemia History of kidney stones Proctitis Arthritis Anxiety Hyperparathyroidism Lung cancer GERD (gastroesophageal reflux disease) Asthma-COPD overlap syndrome Pulmonary hypertension Surgical History Hx of cardiac catheterization Hx of varicose vein ligation and stripping History of lumpectomy of both breasts History of right inguinal hernia repair History of lithotripsy History of lobectomy of lung Hx of colonoscopy History of esophagogastroduodenoscopy Family History Mother Breast cancer Social History Household Members: Family Household Members Other:: Sister Are you a primary progressive care unit registered nurse to a significant other at home: Yes (sister with Down's dementia) Do you presently have visiting nurse or other home services: No Comment: aware of trip hazard Patient Tobacco Use Status: Former Tobacco user Quit Date: 1998 Tobacco use type: Cigarette Review of Systems Const All systems reviewed & are unremarkable except as noted in HPI and below Eyes Reports no additional complaints ENT Reports no additional complaints Card Reports no additional complaints Resp Reports as per HPI GI Reports GI cramping (off and on ) and Reports diarrhea (off and on ) Reports no additional complaints Musc Reports no additional complaints Skin/Breast Reports system reviewed and no additional complaints, except as documented Neuro Reports no additional complaints Psych Reports no additional complaints Physical Exam Vital Signs: Last Vital Signs Pulse 90 09/18/23 16:21 BP 130/58 L 09/18/23 16:21 Pulse Ox 95 09/18/23 16:21 Oxygen Delivery Method Room Air 09/18/23 16:21 BMI result Body Mass Index 24.0 Const General: comfortable, no acute distress, alert and awake Orientation/consciousness: patient oriented x3 HEENT Head: Yes normal to inspection General nose exam: No nasal polyps present and No nasal discharge present Face and sinus: Yes sinuses nontender Mouth: oropharynx normal Throat: Yes posterior oropharynx normal Eyes General: appearance normal, both eyes and all related structures Neck Neck: Yes normal visual inspection, Yes no lymphadenopathy, Yes trachea midline and Yes no JVD Thyroid: Thyroid normal Chest Chest palpation & inspection: normal inspection of the chest, normal palpation of entire chest wall and no tenderness Resp Other: PERCUSSION NOTE IS RESONANT. BREATH SOUNDS. ARE DISTANT BUT EQUAL ON BOTH SIDES I DO NOT HEAR ANY WHEEZES OR RHONCHI OR CREPITATIONS. Cardio Palpation: normal PMI Rate: regular rate Rhythm: regular rhythm Heart sounds: no gallops and no murmurs GI Palpation (GI): Soft to palpation, nontender, No hepatosplenomegaly present and no masses Auscultation: normal bowel sounds Back/Spine/Pelvis Thoracic/Lumbar Spine: thoracic and lumbar spine normal to inspection Skin General skin exam: no rashes or lesions noted Neuro General: patient oriented x3 and no focal motor deficits Cranial nerves: Yes CN's II-XII intact bilaterally Extrem General: Yes normal to inspection, Yes no calf tenderness and Yes edema (CHRONIC STASIS EDEMA AROUND THE ANKLES) Psych Appearance: grossly normal and well kempt Speech and movement: Normal speech and movement present Assessment & Plan Assessment & Plan (1) Asthma-COPD overlap syndrome: Comment: SEVERE OBSTRUCTIVE LUNG DISEASE, WITH SIGNIFICANT IMPROVEMENT AFTER BRONCHODILATOR THERAPY( ASTHMA-COPD OVERLAP SYNDROME ) DOING VERY WELL WITH THE CURRENT MEDICATION ( WIXELA )AND HAS SUBJECTIVELY IMPROVED. HOWEVER SHE IS STILL SHORT OF BREATH ON MINIMAL EXERTION. Code(s): J44.9 - Chronic obstructive pulmonary disease, unspecified Category: Medical Plan: ADVISED TO CONTINUE: WIXELA 250-50 ONE INH BID ( Q 12 HRS ) I WILL ADD SPIRIVA HANDIHALER ONE CAP. BY INHALATION DAILY , TO SEE IF THIS CAN IMPROVE HER BREATHING AND SHE WILL BE LESS SHORT OF BREATH. IF THERE IS NO DIFFERENCE AFTER 1 MONTH THEN SHE WILL STOP USING IT. USE PROAIR 2 PUFFS Q 4-6 HOURS P.R.N. ALSO HAS NEBULIZER AND ALBUTEROL INHALATION SOLUTION TO USE P.R.N. WHEN SHE IS IN THE HOUSE. (2) Pulmonary hypertension: Comment: PULMONARY HYPERTENSION MOST LIKELY CAUSED BY COPD. SHE HAD A REPEAT ECHOCARDIOGRAM AT [facility] AND WAS TOLD THAT SHE DID NOT HAVE PULMONARY HYPERTENSION ANYMORE. Code(s): I27.20 - Pulmonary hypertension, unspecified Category: Medical Plan: NO FURTHER TREATMENT NEEDED FOR THIS DX. Medications: New tiotropium bromide (Spiriva with HandiHaler) puncture 1 cap using device; one dose = 2 inhalations 1 cap inhalation DAILY 30 days 60 inhalations 5RF COPD Coding Level of Care Code Est Pt Level 3 (54441) Diagnoses Asthma-COPD overlap syndrome J44.9 Pulmonary hypertension I27.20
[2023-09-18 16:21] VITALS: BP 130/58; PULSE 90; O2SAT 95; BMI 24.0
== END 2023-09-18 16:51 | disposition home or self-care (01) ==
PROVIDERS: PCP Internal Medicine; Visit Provider Internal Medicine
DX: J44.9 Chronic obstructive pulmonary disease, unspecified (principal); I27.20 Pulmonary hypertension, unspecified
CPT/HCPCS: 99213

== ENCOUNTER → 2023-09-18 16:17 | Outpatient (BNVA) | payer MEDICARE, SELFPAY | PROVIDERS: PCP Internal Medicine; Visit Provider Internal Medicine | DX: J44.9 Chronic obstructive pulmonary disease, unspecified (principal); I27.20 Pulmonary hypertension, unspecified | CPT/HCPCS: 99212 ==

== ENCOUNTER 2023-09-28 05:39 | Day surgery (SDC) | payer MEDICARE, SELFPAY ==
[2023-09-28] VITALS (10 sets, daily range): BP systolic 119–165; BP diastolic 44–70; PULSE 69–88; RESP 15–18; TEMP 36.6–37.1; O2SAT 92–100; BMI 18.4
--- NOTE | ~2023-09-28 | CT_ITS ---
EXAMINATION: CT ABDOMEN AND PELVIS WITH CONTRAST CLINICAL INFORMATION: Left abdominal and flank pain, nausea COMPARISON: 09/17/2012. TECHNIQUE: Multidetector volumetric images were obtained from the superior aspect of the liver through the pubic symphysis following administration 85 mL of Omnipaque 350 intravenous contrast. Sagittal and coronal reformatted images were obtained on the technologist's workstation. Oral contrast: No This CT examination was performed using dose optimization techniques as appropriate, variously including the following: *Automated exposure control *Adjustment of mA and/or kV according to patient size (this includes techniques or standardized protocols for targeted exams where dose is matched to indication/reason for exam; i.e. extremities or head) *Use of iterative reconstruction technique DLP: 509.00 mGy-cm FINDINGS: LUNG BASES: Limited lower thoracic images show aortic annular and coronary artery calcifications as well as very dense mitral valve calcifications. Fibrotic opacities are present at the right lung base. LIVER, GALLBLADDER, AND BILIARY TREE: The liver is normal in size, shape, and attenuation. No focal hepatic lesion or biliary ductal dilatation is present. The gallbladder is unremarkable with no evidence of radiopaque gallstones, gallbladder wall thickening, or obvious pericholecystic inflammatory changes. PANCREAS: Atrophic. Mild dilatation of the main pancreatic duct up to 3 mm. SPLEEN: Unremarkable. ADRENAL GLANDS: Unremarkable. KIDNEYS AND URETERS: A 6 x 5 mm calculus is evident at the left ureterovesical junction with left hydroureteronephrosis to that level. The left nephrogram and pyelogram are slightly diminished and delayed as compared to the right. An additional 8 mm calculus is evident in the lower pole the left kidney. Mild left perirenal infiltration and a small amount of left perirenal fluid are also present. There are several nonobstructing right renal lower pole calculi, the largest measuring 7 mm and 9 mm. Multiple additional small right renal calculi are present. The right ureter is collapsed. No right ureteral calculi are detected. BLADDER: Unremarkable. GASTROINTESTINAL TRACT: The small and large bowel are unremarkable. The appendix is unremarkable. ABDOMINAL WALL: No significant hernia is appreciated. LYMPH NODES: Normal. VASCULAR: Advanced aortoiliac atherosclerosis narrows the aortic lumen to 7 mm and the left and right common iliac arteries to 3-4 mm each. PELVIC VISCERA: Unremarkable. OSSEOUS STRUCTURES: Advanced degenerative changes are evident in the lumbar spine with vacuum phenomenon at L1-L2 and L2-L3, degenerative changes associated with scoliosis and posterior element hypertrophic changes in the mid and lower lumbar spine. CT/CT abdomen pelvis w IV con IMPRESSION: 1. Moderate left hydroureteronephrosis, with a delayed and diminished left nephrogram and mild left perirenal infiltration and fluid, with the obstruction extending to the level of a 6 x 5 mm left UVJ calculus. 2. Multiple additional bilateral renal calculi. 3. Advanced aortoiliac atherosclerosis with luminal narrowing of the distal aorta and both proximal common iliac arteries. 4. Limited lower thoracic images show severe mitral, mild aortic and coronary artery calcifications as well as fibrotic changes at the right lung base. 5. Pancreatic atrophy with mild pancreatic duct dilatation. Fleischner guidelines were followed.
--- NOTE | ~2023-09-28 | FL_ITS ---
EXAMINATION: XR FLUOROSCOPY WITH IMAGES CLINICAL INFORMATION: Cystoscopy, ureteroscopy, retrograde pyelogram, laser left. COMPARISON: None available. TECHNIQUE: Fluoroscopy Supervised By: Dr. Jermaine Hammer. Fluoroscopy Time: 11.7 seconds. Cumulative Dose: 2.65 mGy. DAP: No DAP. Images: 2. FINDINGS: Intraoperative fluoroscopy and spot films were performed during a procedure in the OR. The bottom portion of the double-J stent is seen on the left. Please see Dr. Jermaine Hammer's report for complete details. FL/FL guidance in OR IMPRESSION: Intraoperative fluoroscopy and spot films were obtained. Please see Dr. Jermaine Hammer's report for complete details.
[2023-09-28 06:11] LABS: Appearance Urine Clear; Color Urine Yellow; Glucose Urine UA Negative (Negative); Leukocyte Esterase Urine Negative (Negative); MANUAL DIFF FLAG NO; Nitrite Urine Negative (Negative); UMIC TRIGGER UACC YES; Urine Blood Large (3+) (Negative); Urine Ketones Negative (Negative); Urine Protein Negative (Neg-Trace)
[2023-09-28 06:16] LABS: Bacteria Urine None Seen (None Seen); Hyaline Casts Urine 0-2 /LPF (0-2); RBC Urine >20 /HPF (0-2); Squamous Epithelial Cell Urine 0-2 /HPF (0-2); WBC Urine 0-5 /HPF (0-5)
[2023-09-28 06:26] LABS: Basophils Absolute Auto 0.1 X10*3/uL (0.0-0.2); Basophils Percent Auto 0.4 % (0-2); Eosinophils Absolute Auto 0.1 X10*3/uL (0.0-0.4); Eosinophils Percent Auto 0.8 % (0-4); Hematocrit 42.8 % (37.0-47.0); Hemoglobin 13.8 g/dl (12.0-16.0); Imm Gran Abs Auto 0.17 X10*3/uL (0.00-0.03); Imm Gran Pct Auto 1.2 % (0.0-0.4); Lymphocytes Absolute Auto 1.4 X10*3/uL (1.2-4.9); Lymphocytes Percent Auto 9.9 % (20-40); Mean Corpuscular HGB Conc 32.2 g/dl (31.0-35.0); Mean Corpuscular Hemoglobin 31.1 pg (27.0-33.0); Mean Corpuscular Volume 96.4 fL (80.0-98.0); Mean Platelet Volume 10.2 fL (9.4-12.3); Monocytes Absolute Auto 1.1 X10*3/uL (0.1-1.2); Monocytes Percent Auto 7.6 % (2-11); Neutrophils Absolute Auto 11.4 x10*3/uL (2.0-8.3); Neutrophils Percent Auto 80.1 % (45-73); Platelet Count 196 X10*3/uL (160-400); Red Blood Count 4.44 X10*6/uL (4.20-5.50); Red Cell Distribution Width 13.6 % (11.0-16.0); White Blood Count 14.3 X10*3/uL (4.8-10.8)
--- NOTE | 2023-09-28 06:27 | PC.NURSE ---
pt biba from home, ambulatory onto stretcher, reporting hx of right sided kidney stones, getting an xray and being told she has left sided kidney stones. pt reporting left sided flank pain with intermittent episodes of nausea and vomiting. pt denies urinary symptoms including bloody urine. pt has hx of lymph node removal so no blood pressure/lab draws on the left side. 20G placed by ems in right wrist, labs obtained and sent. pt ambulated to bathroom with steady gait,urine sample obtained and sent to lab.
[2023-09-28 07:18] LABS: Anion Gap 14 (12-20)
--- NOTE | 2023-09-28 07:21 | ED.FEMALEGU ---
HPI - Female Genitourinary General Chief complaint: Urogenital-Female Stated complaint: n/v kidney stones flank pain Time Seen by Provider: 09/28/23 06:30 Source: patient Mode of arrival: ambulatory Limitations: no limitations History of Present Illness HPI Narrative: Patient is a 73-year-old female who presents emergency department for evaluation of left-sided flank/abdominal pain. She reports yesterday evening at approximately 22:00 she was using the bathroom; urinating and having a small bowel movement, when she heard the telephone ringing. She reports that she was awaiting an important call, so she ?pushed really hard? to finish quickly and she developed sudden onset of severe pain to the left side of her abdomen/flank. She reports that she has a history of kidney stones, reportedly has never been symptomatic kidney stones on the left, but has been made aware that they are there. Her pain has been constant since it started with associated nausea and a single episode of vomiting. She endorses having diarrhea, described as small frequent soft stools but this is baseline for her. She denies hematuria, dysuria, urinary frequency/urgency/hesitancy, hematochezia, melena. She denies fevers chills or recent sick contacts. Related Data Home Medications ?Medication ?Instructions ?Recorded ?Confirmed alprazolam 0.25 mg tablet 0.25 mg PO TID PRN Anxiety 10/06/20 09/28/23 aspirin 81 mg tablet,delayed 81 mg PO DAILY 10/06/20 09/28/23 release (Adult Aspirin Regimen) mesalamine 1,000 mg rectal 1,000 mg HI BEDTIME PRN Rectal 10/06/20 09/28/23 suppository Discomfort multivitamin 1 tab PO DAILY 10/06/20 09/28/23 omeprazole 20 mg capsule,delayed 20 mg PO BID 10/06/20 09/28/23 release clobetasol 0.05 % topical ointment 1 appl topical DAILY 12/06/20 09/28/23 acetaminophen 500 mg tablet 1,000 mg PO Q6H PRN Pain 05/03/21 09/28/23 ferrous sulfate 28 mg iron tablet 28 mg PO DAILY 05/03/21 09/28/23 letrozole 2.5 mg tablet 2.5 mg PO DAILY 08/09/21 09/28/23 alendronate 70 mg tablet (Fosamax) 70 mg PO QWEEK 09/18/23 09/28/23 carvedilol 3.125 mg tablet 6.25 mg PO BID 09/18/23 09/28/23 furosemide 20 mg tablet 40 mg PO DAILY 09/18/23 09/28/23 potassium chloride 20 mEq 40 meq PO BID 09/18/23 09/28/23 tablet,extended release Previous Rx's ?Medication ?Instructions ?Recorded albuterol sulfate 90 mcg/actuation 2 puff inhalation Q4-6H PRN for 02/06/22 aerosol inhaler wheezing #6.7 ea albuterol sulfate 1.25 mg/3 mL 2.5 mg (6 mL) inhalation Q4-6H PRN 02/07/22 solution for nebulization shortness of breath or wheezing 30 days #90 mL fluticasone 250 mcg-salmeterol 50 1 ea inhalation BID #60 ea 11/20/22 mcg/dose blistr powdr for inhalation (Wixela Inhub) tiotropium bromide 18 mcg capsule 1 cap inhalation DAILY COPD 30 09/18/23 with inhalation device (Spiriva days #60 inhalations with HandiHaler) Allergies Allergy/AdvReac Type Severity Reaction Status Date / Time codeine Allergy Severe nausea Verified 09/28/23 15:37 Penicillins Allergy Severe Anaphylaxis Verified 09/28/23 15:37 sulfamethoxazole Allergy Severe HIVES/RASH/ Verified 09/28/23 15:37 [From BACTRIM] SWELLING Review of Systems Review of Systems: Yes all other systems are reviewed and are negative PMFSH Past Medical History Attestation statement: The following information was validated with the patient. Source: old records reviewed Medical History (Updated 09/28/23 @ 15:41 by Bing Back CNP) Breast cancer Essential hypertension Hypercalcemia Slow to wake up after anesthesia Hx of radiation therapy Hiatal hernia PONV (postoperative nausea and vomiting) Anemia History of kidney stones Proctitis Arthritis Anxiety Hyperparathyroidism Lung cancer GERD (gastroesophageal reflux disease) Asthma-COPD overlap syndrome Pulmonary hypertension Surgical History (Updated 09/28/23 @ 15:37 by Shae Baker) H/O cataract extraction Hx of cardiac catheterization Hx of varicose vein ligation and stripping History of lumpectomy of both breasts History of right inguinal hernia repair History of lithotripsy History of lobectomy of lung Hx of colonoscopy History of esophagogastroduodenoscopy Family History Family History Mother Breast cancer Social History Social History Household Members: Family Household Members Other:: Sister Are you a primary acute care registered nurse to a significant other at home: Yes (sister with Down's dementia) Do you presently have visiting nurse or other home services: No Comment: aware of trip hazard Patient Tobacco Use Status: Former Tobacco user Quit Date: 1998 Tobacco use type: Cigarette Years Smoked: 35 Smoked in Last 30 Days: No Use of substances other than those prescribed or required for medical reasons: No Are you DNR?: No Advance Directives: No Advance Directives Information Provided: Yes Do you have a plan to hurt others: No Plan Physical Exam Vital Signs: Vital Signs: Last Vital Signs Temp 98.3 F 09/28/23 15:47 Pulse 75 09/28/23 15:47 Resp 16 09/28/23 15:47 BP 139/49 L 09/28/23 15:47 Pulse Ox 92 09/28/23 15:47 O2 Del Method Room Air 09/28/23 15:47 BMI result Body Mass Index 18.4 Appearance: Alert.?Oriented to person, place and time. No acute distress.?Normal affect. Eyes: Pupils equal, round and reactive to light.? ENT: Pharynx normal.?? Neck: Normal inspection.? Neck supple.?? CVS: Heart sounds normal. Normal heart rate and rhythm.? Pulses normal.?? Respiratory: No respiratory distress.? Lung sounds clear to auscultation bilaterally?? Abdomen: Soft with left mid/left lower quadrant tenderness upon palpation. Left CVA tenderness. Normoactive bowel sounds. Skin: Skin warm and dry.? Normal skin color.? Extremities: No lower extremity edema.? Neuro: Moves all extremities spontaneously. Sensation intact bilaterally. Ambulates with normal steady gait. Course Reevaluation(s) Reevaluation #1: CT reveals moderate left hydroureternephrosis perirenal infiltration fluid, UVJ obstructive calculus 6 x 5 mm, patient was made aware of these findings. Tamsulosin ordered. She is quite adamant about having procedural intervention for management of the stone at this time, she has not agreeable for any outpatient follow-up. I have consulted with Urology, Dr. Hammer who plans to bring patient to the OR later today. She is updated on plan of care and is agreeable. Time: 10:36 Medications Administered Discontinued Medications Generic Name Dose Route Start Last Admin Trade Name Freq PRN Reason Stop Dose Admin Sodium Chloride 1,000 mls @ 999 mls/hr 09/28/23 07:15 09/28/23 08:27 Ns IV 09/28/23 08:15 Infused .Q1H1M KVNG Infusion Iohexol 100 ml 09/28/23 08:57 09/28/23 08:58 Iohexol 350 Mg/Ml 100 Ml Infus..Btl IV 09/28/23 08:58 85 ml ONCE ONE Administration Morphine Sulfate 2 mg 09/28/23 07:08 09/28/23 07:26 Morphine Sulfate 2 Mg/Ml Cartridge IVPUSH 09/28/23 07:09 2 mg ONCE ONE Administration Protocol Morphine Sulfate 4 mg 09/28/23 10:40 09/28/23 10:53 Morphine Sulfate 4 Mg/Ml Cartridge IVPUSH 09/28/23 10:41 4 mg ONCE ONE Administration Protocol Ondansetron HCl 4 mg 09/28/23 07:03 09/28/23 07:26 Ondansetron Hcl 4 Mg/2 Ml Vial IVPUSH 09/28/23 07:04 4 mg ONCE ONE Administration Tamsulosin HCl 0.4 mg 09/28/23 10:36 09/28/23 10:53 Tamsulosin Hcl 0.4 Mg Capsule PO 09/28/23 10:37 0.4 mg ONCE ONE Administration Medical Decision Making Medical Decision Making [facility] Narrative: Patient is a 73-year-old female with past medical history of anemia, anxiety, arthritis, asthma-COPD overlap syndrome, GERD, hiatal hernia, nephrolithiasis, hyperparathyroidism, lung cancer with lobectomy, proctitis, pulmonary hypertension invasive ductal carcinoma of the bilateral breast with lumpectomy, radiation, and hormonal therapy with most recent recurrence in 2021, after foregoing recommended mastectomy had lumpectomy and was started on anastrozole, states she is following with Dr. Dias, most recent mammogram May 2023 without suspicious findings to suggest malignancy in either breast. She presents today for evaluation of left-sided abdominal pain/flank pain as per HPI. Will obtain CBC to evaluate for leukocytosis/ anemia, CMP and lipase to evaluate for abnormal electrolytes /abnormal renal function/ abnormal hepatic/biliary function, CT of the abdomen and pelvis and Urinalysis. Management with 1 L normal saline IV fluid, morphine IV, Zofran IV. Differential Diagnosis Differential Diagnoses: The differential diagnosis associated with the presentation includes (Nephrolithiasis, ureteral calculi, hydronephrosis, pyelonephritis, UTI, diverticulitis, colitis, obstruction, musculoskeletal pain) Admission/Observation Consideration of admission/observation: Escalation of care including admission/observation considered (See narrative above and course narrative for further detail) Consult Healthcare Provider Management of the patient was discussed with: [employer] (Urology, Dr. Hammer) Lab Data MDM Lab Attestation statement: I reviewed the patient's lab results. CBC reveals leukocytosis of 14.3 with left shift. Urinalysis with microscopic hematuria, no evidence of urinary tract infection. CMP ___. 09/28/23 06:03 09/28/23 06:48 Labs: Lab Results 09/28/23 09/28/23 Range/Units 06:03 06:48 WBC 14.3 H (4.8-10.8) X10*3/uL RBC 4.44 (4.20-5.50) X10*6/uL Hgb 13.8 (12.0-16.0) g/dl Hct 42.8 (37.0-47.0) % MCV 96.4 (80.0-98.0) fL MCH 31.1 (27.0-33.0) pg MCHC 32.2 (31.0-35.0) g/dl RDW 13.6 (11.0-16.0) % Plt Count 196 (160-400) X10*3/uL MPV 10.2 (9.4-12.3) fL Immature Gran % (Auto) 1.2 H (0.0-0.4) % Neut % (Auto) 80.1 H (45-73) % Lymph % (Auto) 9.9 L (20-40) % Drew % (Auto) 7.6 (2-11) % Eos % (Auto) 0.8 (0-4) % Baso % (Auto) 0.4 (0-2) % Lymph # (Auto) 1.4 (1.2-4.9) X10*3/uL Drew # (Auto) 1.1 (0.1-1.2) X10*3/uL Eos # (Auto) 0.1 (0.0-0.4) X10*3/uL Baso # (Auto) 0.1 (0.0-0.2) X10*3/uL Abs Immat Gran (auto) 0.17 H (0.00-0.03) X10*3/uL Absolute Neuts (auto) 11.4 H (2.0-8.3) x10*3/uL Absolute Nucleated RBC 0.000 (0.0-0.012) X10*3/uL Nucleated RBC % (auto) 0.0 (0.0-0.2) /100WBC Sodium 141 (135-145) mmol/L Potassium 3.6 (3.3-5.1) mmol/L Chloride 105 (96-108) mmol/L Carbon Dioxide 26 (22-29) mmol/L Anion Gap 14 (12-20) BUN 17 H (9-16) mg/dL Creatinine 0.79 (0.5-1.4) mg/dL Estim Creat Clear Calc 49.4 Estimated GFR > 60 Random Glucose 106 (60-115) mg/dL Calcium 10.0 (8.4-10.2) mg/dL Total Bilirubin 0.6 (0.0-1.0) mg/dL AST 22 (5-31) U/L ALT 26 (0-31) U/L Alkaline Phosphatase 68 (39-117) U/L Total Protein 7.0 (6.5-8.0) g/dL Albumin 4.2 (3.5-5.0) g/dL Urine Color Yellow Urine Appearance Clear Urine pH 8.0 (5.0-9.0) Ur Specific [place] 1.010 (1.005-1.025) Urine Protein Negative (Neg-Trace) mg/dL Urine Glucose (UA) Negative (Negative) mg/dL Urine Ketones Negative (Negative) mg/dL Urine Blood Large (3+) H (Negative) Urine Nitrite Negative (Negative) Ur Leukocyte Esterase Negative (Negative) Urine RBC >20 H (0-2) /HPF Urine WBC 0-5 (0-5) /HPF Ur Squamous Epith Cells 0-2 (0-2) /HPF Urine Bacteria None Seen (None Seen) Hyaline Casts 0-2 (0-2) /LPF Radiology Impression Discussion of test interpretation with radiology: I have reviewed the radiologist's reading. Radiologist Impression: CT/CT abdomen pelvis w IV con IMPRESSION: 1. Moderate left hydroureteronephrosis, with a delayed and diminished left nephrogram and mild left perirenal infiltration and fluid, with the obstruction extending to the level of a 6 x 5 mm left UVJ calculus. 2. Multiple additional bilateral renal calculi. 3. Advanced aortoiliac atherosclerosis with luminal narrowing of the distal aorta and both proximal common iliac arteries. 4. Limited lower thoracic images show severe mitral, mild aortic and coronary artery calcifications as well as fibrotic changes at the right lung base. 5. Pancreatic atrophy with mild pancreatic duct dilatation. Independent Historian Clinical information obtained from an independent historian. History obtained from or confirmed by: EMS External Record Review External record reviewed: Outpatient record Critical Care Time Critical Care Time Critical Care Time: Yes Total Critical Care Time: 40 Attestation: I personally attest to this critical care time spent taking care of the patient exclusive of all other billable procedures was approximately 40 minutes including initial evaluation of patient, ordering tests, CT interpretation, IV morphine, medical consultation, documentation, re-evaluation. Discharge Plan Discharge Clinical Impression: Hydronephrosis with urinary obstruction due to ureteral calculus Patient Disposition: Admitted As Inpatient
[2023-09-28 07:22] LABS: Alanine Aminotransferase 26 U/L (0-31); Albumin Level 4.2 g/dL (3.5-5.0); Alkaline Phosphatase 68 U/L (39-117); Aspartate Amino Transferase 22 U/L (5-31); Bilirubin Total 0.6 mg/dL (0.0-1.0); Blood Urea Nitrogen 17 mg/dL (9-16); Carbon Dioxide 26 mmol/L (22-29); Chloride 105 mmol/L (96-108); Creatinine Clr Calc Pharmacy 49.4; Estimated Glomerular Filt Rate > 60; Glucose Random 106 mg/dL (60-115); Potassium 3.6 mmol/L (3.3-5.1); Sodium 141 mmol/L (135-145)
[2023-09-28] MEDS: 0.9 % Sodium Chloride 1,000 ML 999 ML IV (07:26)
[2023-09-28] MEDS: Morphine Sulfate 2 MG/ML CARTRIDGE IVPUSH (07:26)
[2023-09-28] MEDS: ondansetron HCL 4 MG/2 ML VIAL IVPUSH ×2 (07:26→18:02)
--- NOTE | 2023-09-28 07:29 | PC.NURSE ---
this RN resumed care of pt at 0700. a&ox4, vss and up to date. pt c/o 9/10 pain from LLQ to left flank as well as nausea. IVF/medication administered per provider order. effectiveness pending. pt waiting to have CT completed. respirations even and unlabored. plan of care ongoing. call myles placed within reach.
[2023-09-28] MEDS: iohexoL 350 MG/ML 100 ML INFUS..BTL IV (08:58)
[2023-09-28] MEDS: Tamsulosin HCL 0.4 MG CAPSULE PO (10:53)
[2023-09-28] MEDS: Morphine Sulfate 4 MG/ML CARTRIDGE IVPUSH (10:53)
--- NOTE | 2023-09-28 10:57 | PC.NURSE ---
vss and up to date. pt aware of CT results at this time. c/o 11/20 left flank pain. medication administered per provider order. effectiveness pending. plan of care ongoing.
--- NOTE | 2023-09-28 13:12 | P.CNUR_ITS ---
History of Present Illness Consult details Consult date: 09/28/23 Narrative: cc: Left distal ureteric stone with hydronephrosis Eliza is a 73-year-old female Presented through emergency room with left-sided flank pain abdominal pain. Sudden onset last night. Prior history kidney stones procedure ESWL in 2012 No further follow-up Denies hematuria, fever, chills Lab work WBC 14.3, calcium 10.0, creatinine 0.8 Imaging - 10/04 A 6 x 5 mm calculus is evident at the left ureterovesical junction with left hydroureteronephrosis to that level. The left nephrogram and pyelogram are slightly diminished and delayed as compared to the right. Plan for cystoscopy, left retrograde, left ureteroscopy with laser lithotripsy stent placement Review of Systems 2 Constitutional: Constitutional: Reports as per HPI and Reports no additional constitutional complaints Cardiovascular: Cardiovascular: Reports as per HPI and Reports no additional cardiovascular complaints Respiratory: Respiratory: Reports as per HPI and Reports no additional respiratory complaints Gastrointestinal: Gastrointestinal: Reports as per HPI and Reports no additional gastrointestinal complaints Genitourinary: Genitourinary: Reports as per HPI Musculoskeletal: Musculoskeletal: Reports no additional musculoskeletal complaints and Reports as per HPI Neurologic: Reports system reviewed and no additional complaints, except as documented and Reports as per HPI PMFSH Past Medical History Medical History Breast cancer Essential hypertension Hypercalcemia Slow to wake up after anesthesia Hx of radiation therapy Hiatal hernia PONV (postoperative nausea and vomiting) Anemia History of kidney stones Proctitis Arthritis Anxiety Hyperparathyroidism Lung cancer GERD (gastroesophageal reflux disease) Asthma-COPD overlap syndrome Pulmonary hypertension Family History Family History Mother Breast cancer Surgical History Surgical History Hx of cardiac catheterization Hx of varicose vein ligation and stripping History of lumpectomy of both breasts History of right inguinal hernia repair History of lithotripsy History of lobectomy of lung Hx of colonoscopy History of esophagogastroduodenoscopy Social History Social History Household Members: Family Household Members Other:: Sister Are you a primary caregivers non medical to a significant other at home: Yes (sister with Down's dementia) Do you presently have visiting nurse or other home services: No Comment: aware of trip hazard Patient Tobacco Use Status: Former Tobacco user Quit Date: 1998 Tobacco use type: Cigarette Smoked in Last 30 Days: No Use of substances other than those prescribed or required for medical reasons: No Advance Directives: No Advance Directives Information Provided: Yes Do you have a plan to hurt others: No Plan Meds Allergies Allergy/AdvReac Type Severity Reaction Status Date / Time codeine Allergy Severe nausea Verified 09/28/23 05:52 Penicillins Allergy Severe Anaphylaxis Verified 09/28/23 05:52 sulfamethoxazole Allergy Severe HIVES/RASH/ Verified 09/28/23 05:52 [From BACTRIM] SWELLING Home Medications ?Medication ?Instructions ?Recorded ?Confirmed ?Last Taken ?Type alprazolam 0.25 mg tablet 0.25 mg PO TID PRN Anxiety 10/06/20 02/01/23 05/09/21 History aspirin 81 mg tablet,delayed 81 mg PO DAILY 10/06/20 02/01/23 05/08/21 History release (Adult Aspirin Regimen) mesalamine 1,000 mg rectal 1,000 mg NC BEDTIME PRN Rectal 10/06/20 02/01/23 Unknown History suppository Discomfort multivitamin 1 tab PO DAILY 10/06/20 02/01/23 Unknown History omeprazole 20 mg capsule,delayed 20 mg PO BID 10/06/20 02/01/23 05/09/21 History release clobetasol 0.05 % topical ointment g topical 12/06/20 01/08/23 Unknown History acetaminophen 500 mg tablet 1,000 mg PO Q6H PRN Pain 05/03/21 02/01/23 05/09/21 History ferrous sulfate 28 mg iron tablet 28 mg PO DAILY 05/03/21 02/01/23 05/08/21 History letrozole 2.5 mg tablet 2.5 mg PO DAILY 08/09/21 02/01/23 Unknown History alendronate 70 mg tablet (Fosamax) 70 mg PO QWEEK 09/18/23 Unknown History carvedilol 3.125 mg tablet 6.25 mg PO BID 09/18/23 Unknown History furosemide 20 mg tablet 40 mg PO DAILY 09/18/23 Unknown History potassium chloride 20 mEq 10 meq PO QID 09/18/23 Unknown History tablet,extended release Physical Exam 2 Vital Signs: Vital Signs: Last Vital Signs Temp 98.7 F 09/28/23 10:52 Pulse 73 09/28/23 10:52 Resp 16 09/28/23 10:52 BP 147/50 H 09/28/23 10:52 Pulse Ox 95 09/28/23 10:52 O2 Del Method Room Air 09/28/23 10:52 BMI result Body Mass Index 18.4 Const: General: cooperative, healthy appearing, comfortable and no acute distress Orientation/consciousness: patient oriented x3 HEENT: Face and sinus: Yes normal facial exam Mouth: moist mucous membranes Neck: Neck: Yes normal visual inspection, Yes full ROM and Yes trachea midline Chest: Chest palpation & inspection: normal inspection of the chest Resp: Effort & Inspection: normal respiratory effort, able to speak in complete sentences and no respiratory distress GI: Inspection: Yes normal to inspection Back/Spine/Pelvis: Cervical Spine: normal cervical lordosis Thoracic/Lumbar Spine: thoracic and lumbar spine normal to inspection Skin: General skin exam: no rashes or lesions noted Neuro: General: patient oriented x3, tone normal and moves all extremities Extrem: General: Yes normal to inspection and Yes capillary refill normal Results Labs 09/28/23 06:03 09/28/23 06:48 Labs: Abnormal lab results 09/28/23 09/28/23 Range/Units 06:03 06:48 WBC 14.3 H (4.8-10.8) X10*3/uL Immature Gran % (Auto) 1.2 H (0.0-0.4) % Neut % (Auto) 80.1 H (45-73) % Lymph % (Auto) 9.9 L (20-40) % Abs Immat Gran (auto) 0.17 H (0.00-0.03) X10*3/uL Absolute Neuts (auto) 11.4 H (2.0-8.3) x10*3/uL BUN 17 H (9-16) mg/dL Urine Blood Large (3+) H (Negative) Urine RBC >20 H (0-2) /HPF Short CBC 09/28/23 Range/Units 06:03 WBC 14.3 H (4.8-10.8) X10*3/uL Hgb 13.8 (12.0-16.0) g/dl Hct 42.8 (37.0-47.0) % Plt Count 196 (160-400) X10*3/uL BMP 09/28/23 06:48 Sodium 141 Potassium 3.6 Chloride 105 Carbon Dioxide 26 BUN 17 H Creatinine 0.79 Calcium 10.0 Liver Function 09/28/23 Range/Units 06:48 Total Bilirubin 0.6 (0.0-1.0) mg/dL AST 22 (5-31) U/L ALT 26 (0-31) U/L Alkaline Phosphatase 68 (39-117) U/L Albumin 4.2 (3.5-5.0) g/dL Urine 09/28/23 Range/Units 06:03 Urine Color Yellow Urine Appearance Clear Urine pH 8.0 (5.0-9.0) Ur Specific [place] 1.010 (1.005-1.025) Urine Protein Negative (Neg-Trace) mg/dL Urine Glucose (UA) Negative (Negative) mg/dL All other labs normal. Assessment and Plan (1) Nephrolithiasis: Status: Acute (2) Hydronephrosis: Status: Acute Plan Ureteroscopy We discussed the nature of the decision and reasonable alternatives for performing ureteroscopy. Options such as medical therapy were discussed. Interventions include chemical dissolution, ESWL, ureteroscopy with laser lithotripsy and stent placement, PCNL. The relative uncertainties and benefits related to each alternate procedure were adequately discussed. General surgical risks including, but not limited to - pain, bleeding, infection, myocardial infarction, pulmonary embolus, deep vein thrombosis and cerebrovascular accident which may result in further hospitalization were discussed. Full disclosure of the procedure as well as all major risks, benefits and complications were discussed including but not limited to damage to the urethra, bladder and kidney infection, damage to the ureter, stent migration or malposition, scarring to the renal pelvis, remnant stone fragments, subsequent stone passage with need for secondary procedures. The overall secondary procedure rate is approximately 10-15%. The overall clearance rate is approximately 90-95%. Success of the procedure in the short-term does not necessarily guarantee that long-term success will be maintained. Suitable follow up will need to be maintained. The patient showed understanding of discussion and wishes to proceed with - cystoscopy, retrograde, ureteroscopy, possible lithotripsy/stone basketing and stent on the left side Procedures Date of Service Date of Service: 09/28/23
--- NOTE | 2023-09-28 15:35 | PC.NURSE ---
pt to OR at this time.
--- NOTE | 2023-09-28 16:11 | PC.NURSE ---
Patient arrived to preop with one PRN angio, #20 right FA. Site asymptomatic, flushed well.
--- NOTE | 2023-09-28 16:39 | MHC.SHP ---
Pre-Procedural Eval Section A - 24 Hr Update-Section A only Date of Service: 09/28/23 The patient is an INPATIENT: Yes Changes since office visit: No Cold of Flu in the past 2 weeks, No New Medical Problems, No Changes in Medication and No Patient answered all questions The patient has been examined within 24 hours of the surgical procedure. The History & Physical has been completed within 30 days and I have reviewed it.: Yes Section B - Complete if H&P > 30 days Chief Complaint: n/v kidney stones flank pain Allergies: Allergies Allergy/AdvReac Type Severity Reaction Status Date / Time codeine Allergy Severe nausea Verified 09/28/23 15:37 Penicillins Allergy Severe Anaphylaxis Verified 09/28/23 15:37 sulfamethoxazole Allergy Severe HIVES/RASH/ Verified 09/28/23 15:37 [From BACTRIM] SWELLING Plan Diagnosis/Plan: Unchanged (cystoscopy, left retrograde, ureteroscopy, laser, stent) I have reviewed the history and physical and performed a pertinent physical examination on my patient. No changes have occurred unless specified. Time Spent With Patient Time: Total time managing care of this patient today ____ minutes.
--- NOTE | 2023-09-28 16:52 | PC.NURSE ---
Dr. Lo at bedside. Made aware patients SaO2 max 94% room air, hx COPD, Lung sounds clear, Poor ROM of neck.
--- NOTE | 2023-09-28 17:30 | W.PM.OPN ---
Operative Note Operative Note Date of Service: 09/28/23 Narrative: PreOperative Diagnosis: Distal left ureteric stone with hydronephrosis Post Operative Diagnosis: Distal left ureteric stone with hydronephrosis Procedure: - cystoscopy, left retrograde - left dilatation of ureteric orifice under fluoroscopy - left ureteroscopy, laser lithotripsy, stone basketing - left stent placement Surgeon: Dr Jermaine Hammer Anesthesia: General Indications for procedure: Distal left ureteric stone with hydronephrosis. Presentation with left flank pain Procedure: After informed consent was verified the patient was brought to the operating room and placed in a supine position. Anesthesia was administered per protocol. The patient was placed in a modified dorsal lithotomy position and prepped and draped in a sterile fashion. Safety pause time-out and side of surgery were confirmed. Images were available for review. Antibiotic administration confirmed. A 22 Vincentian cystoscope was inserted per urethra. The urethra was without aabnormality. The bladder was normal in its entirety. Both ureteric orifices were seen in normal position . The left ureteric orifice was cannulated and a retrograde examination was performed. Filling defect stone in distal left ureter with proximal hydroureteronephrosis . A Sensor guidewire was placed up to the level of the renal pelvis under fluoroscopy. The rigid cystoscope was removed. A Manny dilator was placed over the Sensor guidewire and used to dilate the ureteric orifice under fluoroscopy. The dilator was removed. The semi rigid ureteral scope was placed alongside the Sensor guidewire. Stone encountered in the distal portion of the ureter. Proximally hydronephrosis.. Using a 365 micro holmium laser fiber the stone was broken into small pieces using a combination of hammer and dusting techiques. Stone fragments were removed from the ureter using a 2.9 Vincentian ZeroTip basket basket. Once the fragments were removed a decision was made to place a ureteric stent. Based on the height of the patient a 6 Fr x 24 stent was used. The string was removed from the stent prior to placement A 6 Vincentian by 24 cm double-J stent was placed into the renal pelvis and bladder under a combination of fluoroscopy and direct visualization. The symphisis pubis was used as a radiographic marker to release the stent and good coil was seen within the bladder confirming position The bladder was emptied. The patient tolerated the procedure well and was extubated in the operating room. They were transferred in stable condition to the recovery area. Pathology: stones Drains: Double J stent as described above
--- NOTE | 2023-09-28 17:42 | P.CONAN_ITS ---
[facility] Active Problems Active Problems: All Active Problems Hydronephrosis with urinary obstruction due to ureteral calculus (Acute) Hydronephrosis (Acute) Nephrolithiasis (Acute) Non-rheumatic mitral regurgitation (Acute) Mitral annular calcification (Acute) Heart palpitations (Acute) Nonrheumatic aortic (valve) stenosis (Acute) Varicose veins of left lower extremity with inflammation (Acute) Invasive ductal carcinoma of left breast (Acute) Abnormal ultrasound of breast (Acute) Abnormal mammogram of left breast (Acute) History of left breast cancer (Acute) Breast cancer, right (Acute) Essential hypertension (Acute) Hypercalcemia (Acute) Asthma-COPD overlap syndrome (Acute) Pulmonary hypertension (Acute) Past Medical History Medical History (Updated 09/28/23 @ 15:41 by Bing Back CNP) Breast cancer Essential hypertension Hypercalcemia Slow to wake up after anesthesia Hx of radiation therapy Hiatal hernia PONV (postoperative nausea and vomiting) Anemia History of kidney stones Proctitis Arthritis Anxiety Hyperparathyroidism Lung cancer GERD (gastroesophageal reflux disease) Asthma-COPD overlap syndrome Pulmonary hypertension Family History Family History Mother Breast cancer Family history of problems with anesthesia: No Surgical History Surgical History (Updated 09/28/23 @ 15:37 by Shae Baker) H/O cataract extraction Hx of cardiac catheterization Hx of varicose vein ligation and stripping History of lumpectomy of both breasts History of right inguinal hernia repair History of lithotripsy History of lobectomy of lung Hx of colonoscopy History of esophagogastroduodenoscopy History of Problems with Anesthesia: No (ponv and delayed emergence ) Social History Social History Household Members: Family Household Members Other:: Sister Are you a primary hearing care professional to a significant other at home: Yes (sister with Down's dementia) Do you presently have visiting nurse or other home services: No Comment: aware of trip hazard Patient Tobacco Use Status: Former Tobacco user Quit Date: 1998 Tobacco use type: Cigarette Years Smoked: 35 Smoked in Last 30 Days: No Use of substances other than those prescribed or required for medical reasons: No Are you DNR?: No Advance Directives: No Advance Directives Information Provided: Yes Do you have a plan to hurt others: No Plan Meds Allergies Allergy/AdvReac Type Severity Reaction Status Date / Time codeine Allergy Severe nausea Verified 09/28/23 15:37 Penicillins Allergy Severe Anaphylaxis Verified 09/28/23 15:37 sulfamethoxazole Allergy Severe HIVES/RASH/ Verified 09/28/23 15:37 [From BACTRIM] SWELLING Active Medications: Current Medications Tramadol HCl (Tramadol Hcl 50 Mg Tablet) 50 mg PO Q6H PRN PRN Reason: Pain, Moderate(Pain Scale 4-6) Home Medications ?Medication ?Instructions ?Recorded ?Confirmed ?Last Taken ?Type alprazolam 0.25 mg tablet 0.25 mg PO TID PRN Anxiety 10/06/20 09/28/23 09/27/23 History aspirin 81 mg tablet,delayed 81 mg PO DAILY 10/06/20 09/28/23 09/27/23 History release (Adult Aspirin Regimen) mesalamine 1,000 mg rectal 1,000 mg NE BEDTIME PRN Rectal 10/06/20 09/28/23 Unknown History suppository Discomfort multivitamin 1 tab PO DAILY 10/06/20 09/28/23 09/27/23 History omeprazole 20 mg capsule,delayed 20 mg PO BID 10/06/20 09/28/23 09/27/23 History release clobetasol 0.05 % topical ointment 1 appl topical DAILY 12/06/20 09/28/23 Unknown History acetaminophen 500 mg tablet 1,000 mg PO Q6H PRN Pain 05/03/21 09/28/23 09/27/23 History ferrous sulfate 28 mg iron tablet 28 mg PO DAILY 05/03/21 09/28/23 09/27/23 Hist ory letrozole 2.5 mg tablet 2.5 mg PO DAILY 08/09/21 09/28/23 09/27/23 History alendronate 70 mg tablet (Fosamax) 70 mg PO QWEEK 09/18/23 09/28/23 09/23/23 History carvedilol 3.125 mg tablet 6.25 mg PO BID 09/18/23 09/28/23 09/27/23 History furosemide 20 mg tablet 40 mg PO DAILY 09/18/23 09/28/23 09/27/23 History potassium chloride 20 mEq 40 meq PO BID 09/18/23 09/28/23 09/27/23 History tablet,extended release Exam Height,Weight and Vital Signs: Height 5 ft 5 in Weight 50.1 kg Last Vital Signs Temp 98.3 F 09/28/23 15:47 Pulse 75 09/28/23 15:47 Resp 16 09/28/23 15:47 BP 139/49 L 09/28/23 15:47 Pulse Ox 92 09/28/23 15:47 O2 Del Method Room Air 09/28/23 15:47 Pertinent Lab Results Pertinent Lab Results: Laboratory Tests 09/28/23 09/28/23 06:03 06:48 WBC 14.3 H RBC 4.44 Hgb 13.8 Hct 42.8 MCV 96.4 MCH 31.1 MCHC 32.2 RDW 13.6 Plt Count 196 MPV 10.2 Immature Gran % (Auto) 1.2 H Neut % (Auto) 80.1 H Lymph % (Auto) 9.9 L [place] % (Auto) 7.6 Eos % (Auto) 0.8 Baso % (Auto) 0.4 Lymph # (Auto) 1.4 [place] # (Auto) 1.1 Eos # (Auto) 0.1 Baso # (Auto) 0.1 Abs Immat Gran (auto) 0.17 H Absolute Neuts (auto) 11.4 H Absolute Nucleated RBC 0.000 Nucleated RBC % (auto) 0.0 Sodium 141 Potassium 3.6 Chloride 105 Carbon Dioxide 26 Anion Gap 14 BUN 17 H Creatinine 0.79 Estim Creat Clear Calc 49.4 Estimated GFR > 60 Random Glucose 106 Calcium 10.0 Total Bilirubin 0.6 AST 22 ALT 26 Alkaline Phosphatase 68 Total Protein 7.0 Albumin 4.2 Urine Color Yellow Urine Appearance Clear Urine pH 8.0 Ur Specific [place] 1.010 Urine Protein Negative Urine Glucose (UA) Negative Urine Ketones Negative Urine Blood Large (3+) H Urine Nitrite Negative Ur Leukocyte Esterase Negative Urine RBC >20 H Urine WBC 0-5 Ur Squamous Epith Cells 0-2 Urine Bacteria None Seen Hyaline Casts 0-2 Airway Mallampati Class: II TM Dist: >3cm Neck ROM: Limited Denture: Upper Loose/Missing/Broken Teeth: Yes and Lower Assessment and Plan Assessment Anesthesia Assessment: Anesthesia Plan Discussed and Chart Reviewed Final Anesthetic Review Family History of Problems with Anesthesia: No History of Problems with Anesthesia: No (ponv and delayed emergence ) NPO: Yes ASA Class: III and Emergency Final Preanesthetic Review: No Changes in Pt Med Stat, Meds/Allgs Chart Reviewed, Consent Obtained/Reviewed and Anes Risks/Benef Reviewed Patient Risk: Intermediate Procedure Risk: Low Anesthetic Plan Anesthetic Plan: GA Disposition: Standard PACU
[2023-09-28] MEDS: Phenazopyridine HCL 100 MG TABLET PO (18:20)
[2023-09-28] MEDS: Acetaminophen 325 MG TABLET 975 MG PO (18:21)
[2023-10-24 18:58] LABS: Stone Source LEFT URETERAL STONE
== END 2023-09-28 19:23 | disposition home or self-care (01) ==
LOC: HO.ED 12:20 → HO.SSS 14:26
PROVIDERS: Emergency Provider Emergency Medicine; PCP Internal Medicine; Visit Provider Urology
PROC: (CPT 52356; principal; 2023-09-28 16:30)
DX: N13.2 Hydronephrosis with renal and ureteral calculous obstruction (principal); I10 Essential (primary) hypertension; J44.9 Chronic obstructive pulmonary disease, unspecified; Z88.0 Allergy status to penicillin; Z88.2 Allergy status to sulfonamides; Z88.5 Allergy status to narcotic agent
CPT/HCPCS: 52356; 36415; 74177; 80053; 81001; 82365; 85025; 88300; 99284; C1758; C1769; C2617; J1956; J2270; J2405; J2704; J3010; Q9967

== ENCOUNTER → 2023-09-28 06:12 | Outpatient (BNV) | payer MEDICARE, SELFPAY | PROVIDERS: Emergency Provider Emergency Medicine; PCP Internal Medicine; Visit Provider Urology | DX: N20.0 Calculus of kidney (principal); N13.30 Unspecified hydronephrosis | CPT/HCPCS: 52356; 74420; 99284 ==

== ENCOUNTER 2023-10-12 10:28 | Outpatient (AMB) | payer MEDICARE, SELFPAY ==
--- NOTE | 2023-10-12 10:34 | A.OFFVIS_ITS ---
Intake Visit Reasons: cysto stent removal Intake Note: Patient is Present for Cystoscopy Urology Med: Tamsulosin Antibiotic Allergy: Penicillins, Sulfamethoxazole Blood Thinner: Aspirin URO- G Disposable Cystoscope lot: [id number] exp:06/14/2026 Allergies codeine Allergy (Severe, Verified 10/29/23 11:06) nausea Penicillins Allergy (Severe, Verified 10/29/23 11:06) Anaphylaxis sulfamethoxazole [From BACTRIM] Allergy (Severe, Verified 10/29/23 11:06) HIVES/RASH/SWELLING tamsulosin Adverse Reaction (Severe, Verified 10/29/23 11:06) cardiac HPI Comments Details: Eliza is a pleasant female. She is seen urologic conditions - nephrolithiasis Here for stent removal Nephrolithiasis Presented through emergency room with left-sided flank pain abdominal pain Prior history kidney stones procedure ESWL in 2012 No further follow-up Denies hematuria, fever, chills Lab work WBC 14.3, calcium 10.0, creatinine 0.8 Imaging - 10/04 A 6 x 5 mm calculus is evident at the left ureterovesical junction with left hydroureteronephrosis to that level. The left nephrogram and pyelogram are slightly diminished and delayed as compared to the right. Intervention - left ureteroscopy PFSH Medical History Breast cancer Essential hypertension Hypercalcemia Slow to wake up after anesthesia Hx of radiation therapy Hiatal hernia PONV (postoperative nausea and vomiting) Anemia History of kidney stones Proctitis Arthritis Anxiety Hyperparathyroidism Lung cancer GERD (gastroesophageal reflux disease) Asthma-COPD overlap syndrome Pulmonary hypertension Surgical History H/O cataract extraction Hx of cardiac catheterization Hx of varicose vein ligation and stripping History of lumpectomy of both breasts History of right inguinal hernia repair History of lithotripsy History of lobectomy of lung Hx of colonoscopy History of esophagogastroduodenoscopy Family History Mother Breast cancer Social History Household Members: Family Household Members Other:: Sister Are you a primary day care center director to a significant other at home: Yes (sister with Down's dementia) Do you presently have visiting nurse or other home services: No Comment: aware of trip hazard Patient Tobacco Use Status: Former Tobacco user Tobacco use type: Cigarette Years Smoked: 35 Review of Systems Const Denies chills and Denies fever(s) Card Reports no additional complaints and Denies syncope Resp Denies cough GI Denies abdominal pain and Denies heartburn Reports as per HPI and Denies change in libido Neuro Denies syncope Psych Denies change in libido Endo Denies change in libido Physical Exam Const General: cooperative, healthy appearing, comfortable and no acute distress Orientation/consciousness: patient oriented x3 HEENT Face and sinus: Yes normal facial exam Mouth: moist mucous membranes Neck Neck: Yes normal visual inspection, Yes full ROM and Yes trachea midline Chest Chest palpation & inspection: normal inspection of the chest Resp Effort & Inspection: normal respiratory effort, able to speak in complete sentences and no respiratory distress GI Inspection: Yes normal to inspection Back/Spine/Pelvis Cervical Spine: normal cervical lordosis Thoracic/Lumbar Spine: thoracic and lumbar spine normal to inspection Skin General skin exam: no rashes or lesions noted Neuro General: patient oriented x3, gait normal, tone normal and moves all extremities Extrem General: Yes normal to inspection and Yes capillary refill normal Office Procedures Cystoscopy Consent Discussed risk and benefit or proposed procedure with the patient. Information consent for procedure given to the patient. Discussed technical aspects, risks, benefits and alternatives in full. Addressed all of the patient's questions and concerns regarding the procedure. The patient demonstrated knowledge and understanding. They wish to proceed with this procedure. Preparation The patient was prepped in the usual manner. A downstream biomanufacturing technician was present and in the room. Genitalia was prepped with betadine solution in a sterile manner. Lidocaine Jelly 2% was placed into the urethra and 16Fr flexible Olympus cystoscope was inserted into the meatus after adequate lubrication. Procedure A well lubricated 16 Tamazight cystoscope was placed No abnormality noted of urethra during placement Indwelling stent seen within bladder emerging from left ureteric orifices The stent was grasped with a 3 prong grasper and removed without difficulty The patient tolerated the procedure well [id number] with stent removal DISPOSABLE SCOPE URO-G FLEXIBLE SCOPE Procedure code (CPT) selection complete Office Meds lidocaine HCl 2 % mucosal jelly in applicator Performing Provider: Jermaine Hammer MD Performing Location: [facility] [place] Administered by: Berenice Sanders RN on 10/12/23 11:00 Dose Route Admin Location Dispensed Lot Number Expiration Date NDC Director Of Financial Aid 10 mL intra-urethral 10 mL nitrofurantoin monohydrate/macrocrystals 100 mg capsule Performing Provider: Jermaine Hammer MD Performing Location: [facility] Administered by: Berenice Sanders RN on 10/12/23 11:00 Dose Route Admin Location Dispensed Lot Number Expiration Date NDC Director Of Financial Aid 100 mg PO 1 cap naproxen 500 mg tablet Performing Provider: Jermaine Hammer MD Performing Location: [facility] Administered by: Berenice Sanders RN on 10/12/23 11:00 Dose Route Admin Location Dispensed Lot Number Expiration Date NDC Director Of Financial Aid 500 mg PO 1 tab Results AMB Urinalysis, Automated UA Leukoctes 125 Aubrey/uL Last Edit by FATEMEH Montero on 10/12/23 10:57 UA Nitrite Negative Last Edit by Sofie Milner [facility] on 10/12/23 10:57 UA Urobilinogen 0.2 mg/dL Last Edit by FATEMEH Montero on 10/12/23 10:5 7 UA Protein 300 mg/dL Last Edit by Sofie Milner [facility] on 10/12/23 10:57 UA pH 6.0 Last Edit by Sofie Milner [facility] on 10/12/23 10:57 UA Blood 200 Gregg/uL Last Edit by Sofie Milner [facility] on 10/12/23 10:57 UA Specific [place] 1.015 Last Edit by LUCIA Montero on 10/12/23 10: 57 UA Ketone Negative Last Edit by FATEMEH Montero on 10/12/23 10:57 UA Bilirubin 0 mg/dL Last Edit by Sofie Milner [facility] on 10/12/23 10:57 UA Glucose 0 mg/dL Last Edit by Sofei Milner [facility] on 10/12/23 10:57 Results Reviewed Results Reviewed: Laboratory Last Values Urine pH (Auto) 6.0 10/12/23 10:37 Specific [place] (Auto) 1.015 10/12/23 10:37 Urine Protein (Auto) 300 mg/dL 10/12/23 10:37 Glucose (UA)(Auto) 0 mg/dL 10/12/23 10:37 Urine Ketones (Auto) Negative 10/12/23 10:37 Urine Blood (Auto) 200 Gregg/uL 10/12/23 10:37 Urine Nitrite (Auto) Negative 10/12/23 10:37 Urine Bilirubin (Auto) 0 mg/dL 10/12/23 10:37 Urine Urobilinogen (Auto) 0.2 mg/dL 10/12/23 10:37 Leukocyte Esterase (Auto) 125 Aubrey/uL 10/12/23 10:37 Assessment & Plan Assessment & Plan (1) Nephrolithiasis: Code(s): N20.0 - Calculus of kidney Category: Medical Plan Three-month follow-up imaging Orders: Orders AMB Urinalysis Automated 10/12/23 Z13.9 - Encounter for screening, unspecified AMB Cystoscopy 10/12/23 N20.0 - Calculus of kidney US renal BI 3 Months N20.0 - Calculus of kidney Patient Instructions: Imaging studies, laboratory and physical exam results were discussed and reviewed in detail. No major barriers to patient understanding were identified. An opportunity to ask questions regarding the treatment plan was provided. All questions were answered. The patient expressed understanding and agreement with the above treatment plan. The patient is aware they should contact our office by phone for worsening of their current condition or the appearance of new urologic symptoms. Compliance is encouraged with any medications and followup testing that is ordered. It is a privilege to participate in the urologic care of your patient. If you have any questions or concerns regarding treatment for the above conditions, or other urologic issues, please do not hesitate to contact me. The office telephone contact is [phone]. This note is constructed using voice recognition software. While every effort has been made to ensure accuracy rodent exterminator errors may have been included. Yours sincerely, Dr Jermaine Hammer MD, [facility] - Urology Providers of Expert, Compassionate Care for the Genitourinary System Coding Level of Care Code Est Pt Level 3 (07487) Diagnoses Nephrolithiasis N20.0 CPT Codes Cystoscopy - CPT: 61728-[id number] with stent removal ([id number])
== END 2023-10-12 11:29 | disposition home or self-care (01) ==
LOC: HO.HUSH 10:28
PROVIDERS: PCP Internal Medicine; Visit Provider Urology
DX: N20.0 Calculus of kidney (principal); Z96.0 Presence of urogenital implants; Z13.9 Encounter for screening, unspecified
CPT/HCPCS: 52310

== ENCOUNTER → 2023-10-12 10:28 | Outpatient (BNVA) | payer MEDICARE, SELFPAY | PROVIDERS: PCP Internal Medicine; Visit Provider Urology | DX: C50.912 Malignant neoplasm of unspecified site of left female breast (principal); Z85.3 Personal history of malignant neoplasm of breast | CPT/HCPCS: 52310; 81003; 99212 ==

== ENCOUNTER 2023-10-12 11:41 | Outpatient (AMB) | payer MEDICARE, SELFPAY ==
--- NOTE | 2023-10-12 11:43 | MHC.OFFVIS ---
Vital Signs 10/12/23 11:51 Height 5 ft 2 in Weight 150 lb BMI 27.4 BP 165/69 H Blood Pressure Location Lt brachial Position Sitting Pulse 86 Intake Visit Reasons: breast exam Intake Note: Patient is seen in office for breast exam. Pt c/o: denies any concerns regarding the breast, has over active parathyroid and is sched to have surgery 01/04/24 had ultrasound an a nodule was found, would like to know if Dr Castaneda can remove it or bx mm:05/25/23 Landcare Facilitator Required: No Astrophysics Professor: Astrophysics Professor Present Accompanied by: Self / Same As Patient Allergies codeine Allergy (Severe, Verified 10/12/23 11:52) nausea Penicillins Allergy (Severe, Verified 10/12/23 11:52) Anaphylaxis sulfamethoxazole [From BACTRIM] Allergy (Severe, Verified 10/12/23 11:52) HIVES/RASH/SWELLING tamsulosin Adverse Reaction (Severe, Verified 10/12/23 11:52) cardiac HPI Comments Details: 73-year-old female patient with a prior history of bilateral breast cancer presenting with a new density noted in the left breast on screening mammogram.? She was diagnosed with invasive ductal carcinoma of the left breast and is status post left breast lumpectomy with lymph node biopsy in 1998.? She subsequently underwent radiation therapy to the left breast followed by hormonal therapy (Dr. Jayleen Garcia).? She subsequently developed a right breast ductal carcinoma in situ in 2018. She underwent a right breast lumpectomy on 03/26/2019 (Dr. Solano).? She subsequent underwent radiation therapy at [facility], completed in June 2019. She is now on tamoxifen and followed by Dr. Dias.? Mammogram of 03/11/2021 revealed a 9 mm solid lesion in the deep inferior aspect of the left breast and a ultrasound-guided core biopsy on 03/24/2021 revealed invasive ductal carcinoma, ER/DE positive HER2 Royal negative.? Left breast mastectomy was recommended due to the previous radiation therapy. Patient declined mastectomy and instead requested another lumpectomy with needle localization knowing that this was not the standard of care. 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 She reports that her recently but she continues to care for her sister. She underwent the left breast lumpectomy with sentinel node biopsy on 05/09/2021. Pathology revealed invasive ductal carcinoma grade 1, 1.1 cm diameter with ductal carcinoma in Situ, margins negative by greater than 2 mm., 3 sentinel lymph nodes negative for metastatic disease. She was again evaluated by Dr. Dias started her on anastrozole. She subsequently stopped the anastrozole due to side effects including depression and muscle aches. She was also evaluated by Dr. Roa who confirmed that radiation therapy cannot be administered for 2nd time. She generally feels well and denies any new breast symptoms. [facility] Medical History Breast cancer Essential hypertension Hypercalcemia Slow to wake up after anesthesia Hx of radiation therapy Hiatal hernia PONV (postoperative nausea and vomiting) Anemia History of kidney stones Proctitis Arthritis Anxiety Hyperparathyroidism Lung cancer GERD (gastroesophageal reflux disease) Asthma-COPD overlap syndrome Pulmonary hypertension Surgical History H/O cataract extraction Hx of cardiac catheterization Hx of varicose vein ligation and stripping History of lumpectomy of both breasts History of right inguinal hernia repair History of lithotripsy History of lobectomy of lung Hx of colonoscopy History of esophagogastroduodenoscopy Family History Mother Breast cancer Social History Household Members: Family Household Members Other:: Sister Are you a primary career development engineer to a significant other at home: Yes (sister with Down's dementia) Do you presently have visiting nurse or other home services: No Comment: aware of trip hazard Patient Tobacco Use Status: Former Tobacco user Tobacco use type: Cigarette Years Smoked: 35 Review of Systems Const All systems reviewed & are unremarkable except as noted in HPI and below Reports body aches, Denies chills, Denies fever(s) and Denies night sweats ENT Reports neck pain Card Denies chest pain, Denies irregular heart rhythm, Denies palpitations and Reports dyspnea on exertion Resp Denies cough, Reports dyspnea on exertion, Denies stridor and Denies wheezing GI Reports no additional complaints Denies nipple discharge Musc Reports back pain, Reports myalgias and Reports neck pain Skin/Breast Reports breast swelling, Denies breast skin changes, Reports breast pain, Denies breast mass, Denies change in breast shape and Denies nipple discharge Endo Denies palpitations Bo/Lymph Denies lymphadenopathy Aller/Immun Denies wheezing Physical Exam Vital Signs: Last Vital Signs Pulse 86 10/12/23 11:51 BP 165/69 H 10/12/23 11:51 BMI result Body Mass Index 27.4 Const General: cooperative and no acute distress Nutritional Appearance: well nourished Orientation/consciousness: patient oriented x3 Limitations: no limitations Neck Neck: Yes no lymphadenopathy Chest Other: Left breast with some residual scar tissue in the lower outer quadrant but no palpable mass, skin change, nipple discharge, or enlarged lymph nodes appreciated. Right breast with no skin change, nipple discharge, nipple retraction, palpable mass or enlarged lymph nodes. GI Inspection: Yes normal to inspection Skin Other: Warm, dry, no rash Neuro General: patient oriented x3 Extrem Other: No edema in either arm. Results AMB Urinalysis, Automated UA Leukoctes 125 Aubrey/uL Last Edit by FATEMEH Montero on 10/12/23 10:57 UA Nitrite Negative Last Edit by Sofie Milner Fidelia on 10/12/23 10:57 UA Urobilinogen 0.2 mg/dL Last Edit by FATEMEH Montero on 10/12/23 10:57 UA Protein 300 mg/dL Last Edit by Sofie Milner [facility] on 10/12/23 10:57 UA pH 6.0 Last Edit by Sofie Milner [facility] on 10/12/23 10:57 UA Blood 200 Gregg/uL Last Edit by Sofie Milner Fidelia on 10/12/23 10:57 UA Specific [place] 1.015 Last Edit by Sofie Milner [facility] on 10/12/23 10:57 UA Ketone Negative Last Edit by FATEMEH Montero on 10/12/23 10:57 UA Bilirubin 0 mg/dL Last Edit by Sofie Milner [facility] on 10/12/23 10:57 UA Glucose 0 mg/dL Last Edit by Sofie Milner [facility] on 10/12/23 10:57 Assessment & Plan Assessment & Plan (1) Breast cancer, right: Code(s): C50.911 - Malignant neoplasm of unspecified site of right female breast Category: Medical (2) History of left breast cancer: Code(s): Z85.3 - Personal history of malignant neoplasm of breast Category: Medical (3) Invasive ductal carcinoma of left breast: Code(s): C50.912 - Malignant neoplasm of unspecified site of left female breast Category: Medical Plan Patient returns for breast cancer follow-up examination. She denies any new breast symptoms and examination today revealed no evidence of recurrent disease in either breast. Mammogram dated 05/15/2023 revealed no significant change from the prior study and no mammographic evidence of malignancy (BI-RADS 2). I recommended follow-up examination in 6 months and continue follow-up with Dr. Dias. She is welcome to call sooner for any new breast concerns. Coding Level of Care Code Est Pt Level 3 (32865) Diagnoses Breast cancer, right C50.911 History of left breast cancer Z85.3 Invasive ductal carcinoma of left breast C50.912
[2023-10-12 11:51] VITALS: BP 165/69; PULSE 86; BMI 27.4
== END 2023-10-12 12:28 | disposition home or self-care (01) ==
PROVIDERS: PCP Internal Medicine; Visit Provider Surgery
DX: Z85.3 Personal history of malignant neoplasm of breast (principal)
CPT/HCPCS: 99213

== ENCOUNTER 2023-10-29 10:55 | Outpatient (AMB) | payer MEDICARE, SELFPAY ==
[2023-10-29 10:56] VITALS: BP 171/74; PULSE 83; O2SAT 98; BMI 27.4
--- NOTE | 2023-10-29 10:56 | MHC.OFFVIS ---
Vital Signs 10/29/23 10:56 Height 5 ft 2 in Weight 150 lb BMI 27.4 BP 171/74 H Blood Pressure Location Rt brachial Position Sitting Pulse 83 Pulse Oximetry (%) 98 Oxygen Delivery Method Room Air Intake Visit Reasons: Lung nodule Intake Note: This patient presents for an assessment for lung nodule. Patient c/o; reports no complaints. Media Sales Consultant Required: No Accompanied by: Self / Same As Patient Allergies codeine Allergy (Severe, Verified 10/29/23 11:06) nausea Penicillins Allergy (Severe, Verified 10/29/23 11:06) Anaphylaxis sulfamethoxazole [From BACTRIM] Allergy (Severe, Verified 10/29/23 11:06) HIVES/RASH/SWELLING tamsulosin Adverse Reaction (Severe, Verified 10/29/23 11:06) cardiac HPI Comments Details: Patient presents here for evaluation of incidentally found upper mediastinal lymph nodes. Patient is being followed by ENT and is scheduled to have parathyroid surgery at [facility]. Patient states that our ENT doctors know if these lymph nodes and are not concerned by the findings. Patient had right lung surgery proximally 35 years ago with resection of the right upper lobe. She denies any fever, chills, night sweats, weight loss. Chart was reviewed and patient evaluate PFS Medical History Breast cancer Essential hypertension Hypercalcemia Slow to wake up after anesthesia Hx of radiation therapy Hiatal hernia PONV (postoperative nausea and vomiting) Anemia History of kidney stones Proctitis Arthritis Anxiety Hyperparathyroidism Lung cancer GERD (gastroesophageal reflux disease) Asthma-COPD overlap syndrome Pulmonary hypertension Surgical History H/O cataract extraction Hx of cardiac catheterization Hx of varicose vein ligation and stripping History of lumpectomy of both breasts History of right inguinal hernia repair History of lithotripsy History of lobectomy of lung Hx of colonoscopy History of esophagogastroduodenoscopy Family History Mother Breast cancer Social History Household Members: Family Household Members Other:: Sister Are you a primary health care marketing manager to a significant other at home: Yes (sister with Down's dementia) Do you presently have visiting nurse or other home services: No Comment: aware of trip hazard Patient Tobacco Use Status: Former Tobacco user Tobacco use type: Cigarette Years Smoked: 35 Physical Exam Vital Signs: Last Vital Signs Pulse 83 10/29/23 10:56 BP 171/74 H 10/29/23 10:56 Pulse Ox 98 10/29/23 10:56 Oxygen Delivery Method Room Air 10/29/23 10:56 BMI result Body Mass Index 27.4 Const Other: Very pleasant eccentric elderly female Neck Other: No obvious cervical, periclavicular, or axillary adenopathy. Chest Other: Chest breath sounds bilaterally, right thoracotomy scar GI Other: Abdomen is soft, benign Assessment & Plan Assessment & Plan (1) Anterior mediastinal lymphadenopathy: Code(s): R59.0 - Localized enlarged lymph nodes Category: Surgical Plan Having reviewed the CT scan readings, which include postsurgical changes right upper lobe, as well as asymptomatic prominence of right upper mediastinal nodes up to 9 mm in short axis.? these do not meet size criteria for enlargement but have increased since 2005, nonspecific ?. As noted, patient has scheduled parathyroid surgery at [facility] coming up soon and her surgeon knows these nodes and is not concerned by them. Current plan is to defer to the patient's [facility] head and neck physicians. Patient otherwise follow-up with me p.r.n.. All questions answered Coding Level of Care Code New Pt Level 4 (73610) Diagnoses Anterior mediastinal lymphadenopathy R59.0
== END 2023-10-29 11:36 | disposition home or self-care (01) ==
PROVIDERS: PCP Internal Medicine; Referring Provider Surgery; Visit Provider Surgery
DX: R59.0 Localized enlarged lymph nodes (principal)
CPT/HCPCS: 99204

== ENCOUNTER → 2023-10-29 10:55 | Outpatient (BNVA) | payer MEDICARE, SELFPAY | PROVIDERS: PCP Internal Medicine; Referring Provider Surgery; Visit Provider Surgery | DX: R59.0 Localized enlarged lymph nodes (principal) | CPT/HCPCS: 99202 ==

== ENCOUNTER 2023-12-10 15:42 | Outpatient (REF) | payer MEDICARE, SELFPAY ==
[2023-12-10 17:29] LABS: Calcium 9.6 mg/dL (8.4-10.2)
== END 2023-12-10 15:43 | disposition home or self-care (01) ==
LOC: HO.LAB 15:42
PROVIDERS: PCP Internal Medicine; Visit Provider Internal Medicine Nephrology
DX: I10 Essential (primary) hypertension (principal); Z87.442 Personal history of urinary calculi
CPT/HCPCS: 36415; 82310; 84100

== ENCOUNTER 2023-12-13 16:12 | Outpatient (REF) | payer MEDICARE, SELFPAY ==
[2023-12-13 17:36] LABS: Anion Gap 10 (12-20); Blood Urea Nitrogen 15 mg/dL (9-16); Calcium 9.4 mg/dL (8.4-10.2); Carbon Dioxide 29 mmol/L (22-29); Chloride 108 mmol/L (96-108); Estimated Glomerular Filt Rate > 60; Potassium 4.8 mmol/L (3.3-5.1); Sodium 142 mmol/L (135-145)
== END 2023-12-13 16:13 | disposition home or self-care (01) ==
LOC: HO.LAB 16:12
PROVIDERS: PCP Internal Medicine; Visit Provider Internal Medicine Nephrology
DX: Z87.442 Personal history of urinary calculi (principal)
CPT/HCPCS: 36415; 80051; 82310; 82565; 84520

== ENCOUNTER 2024-01-04 10:10 | Day surgery (SDC) | payer MEDICARE, SELFPAY ==
[2024-01-04 10:53] VITALS: BMI 25.3
--- NOTE | 2024-01-04 11:10 | HO.ANESPROP2 ---
[facility] Active Problems Active Problems: All Active Problems Anterior mediastinal lymphadenopathy (Acute) Nephrolithiasis (Acute) Non-rheumatic mitral regurgitation (Acute) Mitral annular calcification (Acute) Heart palpitations (Acute) Nonrheumatic aortic (valve) stenosis (Acute) Varicose veins of left lower extremity with inflammation (Acute) Invasive ductal carcinoma of left breast (Acute) Abnormal ultrasound of breast (Acute) Abnormal mammogram of left breast (Acute) History of left breast cancer (Acute) Breast cancer, right (Acute) Essential hypertension (Acute) Hypercalcemia (Acute) Asthma-COPD overlap syndrome (Acute) Pulmonary hypertension (Acute) Past Medical History Medical History Breast cancer Essential hypertension Hypercalcemia Slow to wake up after anesthesia Hx of radiation therapy Hiatal hernia PONV (postoperative nausea and vomiting) Anemia History of kidney stones Proctitis Arthritis Anxiety Hyperparathyroidism Lung cancer GERD (gastroesophageal reflux disease) Asthma-COPD overlap syndrome Pulmonary hypertension Family History Family History Mother Breast cancer Family history of problems with anesthesia: No Surgical History Surgical History (Updated 01/04/24 @ 10:47 by Shae Baker RN) History of parathyroidectomy H/O cataract extraction Hx of cardiac catheterization Hx of varicose vein ligation and stripping History of lumpectomy of both breasts History of right inguinal hernia repair History of lithotripsy History of lobectomy of lung Hx of colonoscopy History of esophagogastroduodenoscopy History of Problems with Anesthesia: No (ponv and delayed emergence ) Social History Social History Household Members: Family Household Members Other:: Sister Are you a primary director career services to a significant other at home: Yes (Sister) Do you presently have visiting nurse or other home services: No Comment: aware of trip hazard Patient Tobacco Use Status: Former Tobacco user Tobacco use type: Cigarette Years Smoked: 31 Smoked in Last 30 Days: No Use of substances other than those prescribed or required for medical reasons: No Have you been hit, kicked, punched, or otherwise hurt by someone within the past year? If so, by whom?: No Are you DNR?: No Advance Directives: No Advance Directives Information Provided: Yes Recently lost weight without trying: No How much weight loss: Not applicable Eating poorly because of decreased appetite: No Nutrition screen score: 0 Nutrition Risks: No Nutritional Risk Patient : No Meds Allergies Allergy/AdvReac Type Severity Reaction Status Date / Time codeine Allergy Severe nausea Verified 01/04/24 10:48 eplerenone Allergy Severe Gastrointestinal Verified 01/04/24 10:49 Upset Penicillins Allergy Severe Anaphylaxis Verified 01/04/24 10:48 sulfamethoxazole Allergy Severe HIVES/RASH/ Verified 01/04/24 10:48 [From BACTRIM] SWELLING tamsulosin AdvReac Severe cardiac Verified 01/04/24 10:48 Active Medications: Current Medications Lactated Ringer's (Lr) 1,000 mls @ 100 mls/hr IVCONT .Q10H KVNG Sodium Biphosphate/Sodium Phosphate (Sodium Phosphate,Hanover-Dibasic 133 Ml Enema) 133 ml CO ONCE PRN PRN Reason: Poor Colonoscopy Prep Results Home Medications ?Medication ?Instructions ?Recorded ?Confirmed ?Last Taken ?Type alprazolam 0.25 mg tablet 0.25 mg PO TID PRN Anxiety 10/06/20 01/04/24 01/04/24 History aspirin 81 mg tablet,delayed 81 mg PO DAILY 10/06/20 01/04/24 12/31/23 History release (Adult Aspirin Regimen) mesalamine 1,000 mg rectal 1,000 mg CO BEDTIME PRN Rectal 10/06/20 01/04/24 Unknown History suppository Discomfort multivitamin 1 tab PO DAILY 10/06/20 01/04/24 09/27/23 History omeprazole 20 mg capsule,delayed 20 mg PO BID 10/06/20 01/04/24 09/27/23 History release clobetasol 0.05 % topical ointment 1 appl topical DAILY 12/06/20 01/04/24 Unknown History acetaminophen 500 mg tablet 1,000 mg PO Q6H PRN Pain 05/03/21 01/04/24 09/27/23 History ferrous sulfate 28 mg iron tablet 28 mg PO DAILY 05/03/21 01/04/24 12/31/23 History letrozole 2.5 mg tablet 2.5 mg PO DAILY 08/09/21 01/04/24 09/27/23 History alendronate 70 mg tablet (Fosamax) 70 mg PO QWEEK 09/18/23 01/04/24 09/23/23 History carvedilol 3.125 mg tablet 6.25 mg PO BID 09/18/23 01/04/24 01/04/24 History furosemide 20 mg tablet 40 mg PO DAILY 09/18/23 01/04/24 01/01/24 History potassium chloride 20 mEq 40 meq PO BID 09/18/23 01/04/24 01/04/24 History tablet,extended release Exam Height,Weight and Vital Signs: Height 5 ft 4 in Weight 66.769 kg Airway Mallampati Class: II TM Dist: >3cm Neck ROM: Full Assessment and Plan Assessment Anesthesia Assessment: Anesthesia Plan Discussed and Chart Reviewed Final Anesthetic Review Family History of Problems with Anesthesia: No History of Problems with Anesthesia: No (ponv and delayed emergence ) NPO: Yes ASA Class: III Final Preanesthetic Review: No Changes in Pt Med Stat, Meds/Allgs Chart Reviewed, Consent Obtained/Reviewed and Anes Risks/Benef Reviewed Patient Risk: Intermediate Procedure Risk: Low Anesthetic Plan Anesthetic Plan: TIVA Disposition: Standard PACU
[2024-01-04 11:11] VITALS: BP 182/75; PULSE 75; RESP 16; TEMP 36.6; O2SAT 98
[2024-01-04] MEDS: Lactated Ringers 1,000 ML 100 ML IVCONT (11:19)
[2024-01-04 14:11] VITALS: BP 156/57; PULSE 77; RESP 16; TEMP 36.3; O2SAT 100
--- NOTE | 2024-01-04 14:21 | PM.OP ---
Brief Operative Note Date of Service: 01/04/24 Pre-op diagnosis: Screening Post-op diagnosis: other (Polyps, Ulcerative colitis) Procedure: Colonoscopy to the cecum and TI with multiple(>10) hot snare polypectomies Surgeon: George Nguyen MD Anesthesia: MAC Was an Communication Electronic Technician used for this Procedure?: No Estimated blood loss (mL): 2.0 Pathology: other (A. Ascending colon polyps B. Transverse colon polyps C. Polyps between 40-50cm) Condition: stable Disposition: PACU
[2024-01-04 14:25] VITALS: BP 179/65; PULSE 77; RESP 16; O2SAT 99
--- NOTE | 2024-01-04 14:36 | OP_ITS ---
DATE OF SERVICE: 01/04/2024 SURGEON: George Nguyen MD INDICATIONS: Full consent has been obtained from her for this, including risks of bleeding and perforation. PREOPERATIVE DIAGNOSIS: POSTOPERATIVE DIAGNOSIS: PROCEDURE PERFORMED: Colonoscopy to the cecum and terminal ileum with multiple hot snare polypectomies. ESTIMATED BLOOD LOSS: COMPLICATIONS: ANESTHESIA: Monitored anesthesia care. ASSISTANTS: SPECIMENS: PREOPERATIVE DIAGNOSES: Colorectal cancer screening, personal history of colon polyps, and history of distal ulcerative colitis. POSTOPERATIVE DIAGNOSES: Colorectal cancer screening, personal history of colon polyps, and history of distal ulcerative colitis, multiple colon polyps, diverticulosis, distal ulcerative colitis, internal hemorrhoids. DESCRIPTION OF PROCEDURE: The patient was placed in the left lateral decubitus position. The digital rectal exam revealed no abnormalities. The Olympus video pediatric colonoscope was entered into the rectum. The scope was advanced to the sigmoid colon. Advancement past the sigmoid colon was difficult due to diverticular disease, probable adhesions, and some intestinal spasm. However, once I was able to get past the sigmoid colon I was then able to easily reach the cecum. Once in the cecum, I did identify cecal pouch with appendiceal orifice and a normal-appearing ileocecal valve. The entire cecum was well visualized and appeared normal. The terminal ileum was cannulated and appeared normal. The scope was withdrawn back in the colon. The scope was then slowly withdrawn assessing all mucosal surfaces carefully. Preparation was excellent. The colon itself was tortuous on the way out, which made things somewhat difficult. Multiple polyps were visualized. I removed multiple polyps in the ascending colon and transverse colon that were between 10 and 12 mm with hot snare polypectomies. These were all recovered by suction. All the polypectomy sites appeared clean, without any sign of residual polyp nor bleeding. There were smaller polyps, which I did not remove at this time due to the lengthiness of the procedure. Between 40 and 50 cm were 2 polyps, both of which were approximately 1.5 cm in size. These were both removed by hot snare polypectomy and retrieved with the retrieval net simultaneously. Both polypectomy sites appeared clean, without any sign of residual polyp nor bleeding. There were also smaller less than 10 mm polyps, which were not removed at this time. I did not visualize any sign of colitis in the descending colon nor proximal sigmoid. There was a moderate amount of diverticulosis. The scope with the retrieval net was taken out of the patient. The scope was advanced back into the rectum and advanced into the sigmoid colon, but again it was difficult to try to get past this back to the 2 polypectomy sites between 40 to 50 cm and therefore they were not revisualized. Therefore, the scope was slowly withdrawn. There was evidence of some moderately active colitis involving the rectum and distal sigmoid. I did not visualize any sign of mass or ulceration. The scope was retroflexed visualizing some internal hemorrhoids as well. The scope was straightened and withdrawn from the patient. She tolerated the procedure well and was returned to the recovery area in stable condition. IMPRESSION: 1. Multiple colon polyps. 2. Distal ulcerative proctocolitis. 3. Diverticulosis. 4. Internal hemorrhoids. PLAN: The results of the pathology will be checked. Given these findings and some residual polyps remaining behind, I would recommend a repeat colonoscopy within 1 year. She was advised not to use any aspirin, fish oil, nor iron for 2 weeks. She will continue her daily mesalamine suppository as she does report this works fairly well to the keep her symptoms from the proctocolitis from occurring. She finds as long she uses that nightly, she does not experience any significant bleeding nor diarrhea.However, given the more proximal extent of the colitis seen today, some intermittent symptoms, and what she describes as difficulty in administering the suppository, I shall start her on an oral mesalamine in addition to the suppository She will be seen in followup as well. This has been discussed with her son. MD DOUGIE Qureshi/JUAN RAMON / [id number] JAROD
[2024-01-04 14:40] VITALS: BP 169/91; PULSE 77; RESP 18; TEMP 36.1; O2SAT 98
== END 2024-01-04 15:04 | disposition home or self-care (01) ==
PROVIDERS: PCP Internal Medicine; Visit Provider Internal Medicine
PROC: 0DJD8ZZ Inspection of Lower Intestinal Tract, Via Natural or Artificial Opening Endoscopic (ICD-10-PCS; CPT 45378; principal; 2024-01-04 11:30)
DX: Z12.11 Encounter for screening for malignant neoplasm of colon (principal); Z86.010 Personal history of colon polyps; D12.2 Benign neoplasm of ascending colon; D12.3 Benign neoplasm of transverse colon; D12.5 Benign neoplasm of sigmoid colon; K57.30 Diverticulosis of large intestine without perforation or abscess without bleeding; K62.89 Other specified diseases of anus and rectum; K64.8 Other hemorrhoids; K21.9 Gastro-esophageal reflux disease without esophagitis; J44.9 Chronic obstructive pulmonary disease, unspecified; E21.3 Hyperparathyroidism, unspecified; C50.919 Malignant neoplasm of unspecified site of unspecified female breast; Z79.811 Long term (current) use of aromatase inhibitors; Z85.118 Personal history of other malignant neoplasm of bronchus and lung; Z90.2 Acquired absence of lung [part of]; Z79.82 Long term (current) use of aspirin; Z79.899 Other long term (current) drug therapy; Z88.0 Allergy status to penicillin; Z88.2 Allergy status to sulfonamides; Z88.5 Allergy status to narcotic agent; Z87.891 Personal history of nicotine dependence
CPT/HCPCS: 45385; 88305; J2704

== ENCOUNTER 2024-01-07 15:39 | Outpatient (REF) | payer MEDICARE, SELFPAY ==
--- NOTE | ~2024-01-07 | US_ITS ---
EXAMINATION: US RETROPERITONEAL COMPLETE (RENAL) CLINICAL INFORMATION: Renal calculus. COMPARISON: CT abdomen and pelvis on 09/28/2023 TECHNIQUE: Real-time imaging of the kidneys and bladder. FINDINGS: RIGHT KIDNEY: 10.9 x 4.3 x 4.6 cm (SAG x AP x TRV). The kidney is normal in size, contour, and echogenicity. Renal cortical thickness is normal. No hydronephrosis. Multiple nonobstructing calculi. The largest measures 0.4 cm. LEFT KIDNEY: 11.6 x 4.6 x 4.2 cm (SAG x AP x TRV). The kidney is normal in size, contour, and echogenicity. Renal cortical thickness is normal. Multiple punctate nonobstructing calculi. US/US renal BI IMPRESSION: Bilateral nonobstructing renal calculi. The extent of calculi was better evaluated on the prior CT. Electronically signed by: Lindsay Romero MD 01/08/2024 04:18 AM EDT
== END 2024-01-07 15:40 | disposition home or self-care (01) ==
LOC: HO.US 15:39
PROVIDERS: PCP Internal Medicine; Visit Provider Urology
DX: N20.0 Calculus of kidney (principal)
CPT/HCPCS: 76775

== ENCOUNTER 2024-01-09 15:33 | Outpatient (AMB) | payer MEDICARE, SELFPAY ==
--- NOTE | 2024-01-09 15:33 | MHC.OFFVIS ---
Intake Visit Reasons: 3m/US(set) Intake Note: Patient presents today for tele visit follow up on: Nephrolithiasis Urology Medications: none Antibiotic Allergy: Penicillins, Sulfamethoxazole Blood Thinner: Aspirin Lang Path Therapist Required: No Allergies codeine Allergy (Severe, Verified 01/09/24 15:43) nausea eplerenone Allergy (Severe, Verified 01/09/24 15:43) Gastrointestinal Upset Penicillins Allergy (Severe, Verified 01/09/24 15:43) Anaphylaxis sulfamethoxazole [From BACTRIM] Allergy (Severe, Verified 01/09/24 15:43) HIVES/RASH/SWELLING tamsulosin Adverse Reaction (Severe, Verified 01/09/24 15:43) cardiac Medication List - Last Reconciled 01/09/24 by LIZBETH Stanford acetaminophen 1,000 mg PO Q6H PRN albuterol sulfate 90 mcg/actuation 2 puffs inhalation Q4-6H PRN albuterol sulfate 2.5 mg (6 mL) inhalation Q4-6H PRN 30 days alendronate (Fosamax) 70 mg PO QWEEK alprazolam mg PO amiloride 5 mg PO DAILY aspirin (Adult Aspirin Regimen) 81 mg PO DAILY carvedilol 6.25 mg PO BID clobetasol 0.05% 1 appl topical DAILY ferrous sulfate 28 mg PO DAILY fluticasone propion-salmeterol 250-50 mcg/dose (Wixela Inhub) 1 ea inhalation BID furosemide 40 mg PO DAILY furosemide 40 mg PO BID letrozole 2.5 mg PO DAILY mesalamine 1,000 mg VT BEDTIME PRN multivitamin 1 tab PO DAILY omeprazole 20 mg PO BID potassium chloride ER 40 mEq PO BID tiotropium bromide (Spiriva with HandiHaler) 1 cap inhalation DAILY 30 days HPI Comments Details: Eliza is a very pleasant 73-year-old female patient of Dr. Valencia. She has a past medical history of breast cancer, hypertension, hypercholesteremia, hiatal hernia, nephrolithiasis, arthritis, anxiety, hypothyroidism, lung cancer, GERD, asthma, and pulmonary hypertension. She is being followed up on today via telehealth for her nephrolithiasis. Of note, patient underwent left-sided ureteroscopy with Dr. Hammer 10/04 for a 6 mm left UVJ stone. During last office visit 10/11 patient underwent an office cystoscopy for left-sided ureteral stent removal. In discussion with the patient today she reports since her last office visit here she has been doing and feeling well. She does know baseline urinary urgency and frequency however does not find this bothersome. Recent renal imaging results reviewed with the patient today. Bilateral kidneys with no hydronephrosis. Right kidney with multiple nonobstructing calculi. The largest measuring 0.4 cm. Left kidney with multiple punctate nonobstructing calculi. She has a previous history of ESWL in 2012. We discussed at length potential causes of nephrolithiasis as well as further metabolic workup. She currently denies any bothersome urinary issues or concerns. She denies incontinence, nocturia, hematuria, dysuria, foul smelling urine, changes to urinary stream, flank pain, fever, and or chills. She is happy with her current voiding parameters. [facility] Medical History Breast cancer Essential hypertension Hypercalcemia Slow to wake up after anesthesia Hx of radiation therapy Hiatal hernia PONV (postoperative nausea and vomiting) Anemia History of kidney stones Proctitis Arthritis Anxiety Hyperparathyroidism Lung cancer GERD (gastroesophageal reflux disease) Asthma-COPD overlap syndrome Pulmonary hypertension Surgical History (Updated 01/04/24 @ 10:47 by Shae Baker RN) History of parathyroidectomy H/O cataract extraction Hx of cardiac catheterization Hx of varicose vein ligation and stripping History of lumpectomy of both breasts History of right inguinal hernia repair History of lithotripsy History of lobectomy of lung Hx of colonoscopy History of esophagogastroduodenoscopy Family History Mother Breast cancer Social History Household Members: Family Household Members Other:: Sister Are you a primary menagerie caretaker to a significant other at home: Yes (Sister) Do you presently have visiting nurse or other home services: No Patient Tobacco Use Status: Former Tobacco user Tobacco use type: Cigarette Years Smoked: 31 Review of Systems Const Reports no additional complaints Eyes Reports no additional complaints ENT Reports no additional complaints Card Reports as per HPI Resp Reports as per HPI GI Reports as per HPI Reports as per HPI Musc Reports as per HPI Skin/Breast Reports as per HPI Neuro Reports no additional complaints Psych Reports no additional complaints Ob/Lymph Reports no additional complaints Aller/Immun Reports no additional complaints Physical Exam Const General: cooperative Orientation/consciousness: oriented to time Resp Effort & Inspection: able to speak in complete sentences Neuro General: oriented to time Psych Speech and movement: Clear speech present Attitude: cooperative Thought process: Normal thought process present Thought content: Normal thought content present Insight: Fair insight present (Psych) Judgement: Fair judgement present (Psych) Telehealth Telehealth Telehealth Platform: [employer] Location of provider rendering services: practice address Location of patient: address on file Patient Identification confirmed using: Name, : Yes Telehealth method: voice only Patient verbally consented to treatment: Yes Patient verbally consented to billing insurance company: Yes Patient informed of any privacy concerns related to visit: Yes Minutes spent on Phone/Video with Pt.: 20 Results Reviewed Results Reviewed: Date of Service: 01/07/24 EXAMINATION: US RETROPERITONEAL COMPLETE (RENAL) FINDINGS: RIGHT KIDNEY: 10.9 x 4.3 x 4.6 cm (SAG x AP x TRV). The kidney is normal in size, contour, and echogenicity. Renal cortical thickness is normal. No hydronephrosis. Multiple nonobstructing calculi. The largest measures 0.4 cm. LEFT KIDNEY: 11.6 x 4.6 x 4.2 cm (SAG x AP x TRV). The kidney is normal in size, contour, and echogenicity. Renal cortical thickness is normal. Multiple punctate nonobstructing calculi. IMPRESSION: Bilateral nonobstructing renal calculi. The extent of calculi was better evaluated on the prior CT. Assessment & Plan Assessment & Plan (1) Nephrolithiasis: Code(s): N20.0 - Calculus of kidney Category: Medical Plan Recent renal imaging results reviewed with the patient today; as noted above. Patient currently denies any bothersome urinary issues or concerns. She reports be happy with current voiding parameters. Discussed at length potential causes of nephrolithiasis. Discussed adding 1 oz of lemon juice to water daily. Discussed importance of adequate hydration in relation to nephrolithiasis as well as overall health and well-being. Discussed further metabolic workup; however patient declines at this time. Will continue with surveillance imaging monitoring. Will obtain renal ultrasound in 6 months. Follow-up in 6 months with imaging to be completed prior; or sooner with any issues, concerns, and or questions. Orders: Orders US renal BI 6 Months N20.0 - Calculus of kidney Patient Instructions: The patient had an opportunity to ask questions regarding the treatment plan. All questions were answered. Physical exam, labs, and imaging were discussed and reviewed in detail. As well as risks, benefits, and discussion of treatment choices. No major barriers to understanding were identified. The patient expressed understanding and agreement with the above treatment plan. The patient was made aware they should contact our office by phone for worsening of their current condition, the appearance of new symptoms, or with any questions or concerns. Compliance is encouraged with any medications and follow up testing that is ordered. It is a privilege to be allowed the opportunity to participate in? your urological care.? Again, if you have any questions or concerns If you have any questions or concerns please do not hesitate to contact me. The office is [phone]. This note is constructed using voice recognition software. While every effort has been made to ensure accuracy edge dyer errors may have been included. Yours sincerely, LIZBETH Stanford Coding Level of Care Code Tele Est Pt Level 3 (12206) Diagnoses Nephrolithiasis N20.0
== END 2024-01-09 16:05 | disposition home or self-care (01) ==
LOC: HO.HUSH 15:33
PROVIDERS: PCP Internal Medicine; Visit Provider Nurse Practitioner Family
DX: N20.0 Calculus of kidney (principal)
CPT/HCPCS: 99442

== ENCOUNTER → 2024-01-09 15:33 | Outpatient (BNVA) | payer MEDICARE, SELFPAY | PROVIDERS: PCP Internal Medicine; Visit Provider Nurse Practitioner Family ==

== ENCOUNTER → 2024-02-22 15:10 | Outpatient (REF) | payer MEDICARE, SELFPAY ==
--- NOTE | 2024-02-22 15:28 | HM_ITS ---
* Total monitoring time 3 days. * Underlying rhythm is sinus with an average rate of 81/Min. * Occasional supraventricular ectopy with a burden of 0.9%. * Rare ventricular ectopy. * No significant pauses or high-grade AV blocks. * Patient marker used in association with sinus rhythm/supraventricular ectopy. * No diary events. MTDD
== END ==
LOC: HO.CARD 15:10
PROVIDERS: PCP Internal Medicine; Visit Provider Nurse Practitioner Family
DX: R00.2 Palpitations (principal)
CPT/HCPCS: 93242

== ENCOUNTER → 2024-02-22 15:28 | Outpatient (BNV) | payer MEDICARE, SELFPAY | PROVIDERS: PCP Internal Medicine; Visit Provider Internal Medicine | DX: I47.10 Supraventricular tachycardia, unspecified (principal) | CPT/HCPCS: 93244 ==

== ENCOUNTER 2024-02-29 16:58 | Outpatient (REF) | payer MEDICARE, SELFPAY ==
[2024-03-03 21:54] LABS: Lyme Abs Screen <0.90 index
== END 2024-02-29 16:59 | disposition home or self-care (01) ==
LOC: HO.LAB 16:58
PROVIDERS: PCP Internal Medicine; Visit Provider Internal Medicine
DX: T14.8XXA Other injury of unspecified body region, initial encounter (principal); W57.XXXA Bitten or stung by nonvenomous insect and other nonvenomous arthropods, initial encounter
CPT/HCPCS: 36415; 86617; 86618

== ENCOUNTER 2024-03-27 15:47 | Outpatient (AMB) | payer MEDICARE, SELFPAY ==
[2024-03-27 15:59] VITALS: BP 150/60; PULSE 94; BMI 26.3
--- NOTE | 2024-03-27 15:59 | MHC.OFFVIS ---
Vital Signs 03/27/24 15:59 Height 5 ft 4 in Weight 153 lb 7.068 oz BMI 26.3 BP 150/60 H Blood Pressure Location Rt brachial Position Sitting Pulse 94 Intake Visit Reasons: *f/up holter per DC Intake Note: F/U Holter. Solar Manager Required: No Accompanied by: Self / Same As Patient Allergies codeine Allergy (Severe, Verified 01/09/24 15:43) nausea eplerenone Allergy (Severe, Verified 01/09/24 15:43) Gastrointestinal Upset Penicillins Allergy (Severe, Verified 01/09/24 15:43) Anaphylaxis sulfamethoxazole [From BACTRIM] Allergy (Severe, Verified 01/09/24 15:43) HIVES/RASH/SWELLING tamsulosin Adverse Reaction (Severe, Verified 01/09/24 15:43) cardiac Medication List - Last Reconciled 03/27/24 by Zakia Kasper NP-C acetaminophen 1,000 mg PO Q6H PRN albuterol sulfate 90 mcg/actuation 2 puffs inhalation Q4-6H PRN albuterol sulfate 2.5 mg (6 mL) inhalation Q4-6H PRN 30 days alendronate (Fosamax) 70 mg PO QWEEK alprazolam mg PO amiloride 5 mg PO DAILY aspirin (Adult Aspirin Regimen) 81 mg PO DAILY carvedilol 6.25 mg PO BID clobetasol 0.05% 1 appl topical DAILY ferrous sulfate 28 mg PO DAILY fluticasone propion-salmeterol 250-50 mcg/dose (Wixela Inhub) 1 ea inhalation BID furosemide 40 mg PO ONCE letrozole 2.5 mg PO DAILY mesalamine 4.8 grams PO DAILY multivitamin 1 tab PO DAILY omeprazole 20 mg PO BID potassium chloride ER 40 mEq PO BID tiotropium bromide (Spiriva with HandiHaler) 1 cap inhalation DAILY 30 days HPI HPI *f/up holter per DC: Details: Eliza is a 74-year-old female with past medical history of hypertension, pulmonary hypertension, COPD, mild aortic stenosis, [id number]-rvoecmec mitral regurgitation who presents for follow-up. Her last prior visit to our office was 01/08/2023. Today she reports that she has been getting chest discomfort that occurs randomly across her chest which can last several minutes before resolving. She states this is a newer symptom for her. Seems to happen more at rest. She does not get it when walking. She is mostly sedentary. She has some shortness of breath which she relates to her COPD. No PND, orthopnea or edema. No lightheadedness, presyncope, syncope. She will feel some rapid heart palpitations at times. She does remember having it at least once when she wore the heart monitor. Taking meds as directed. [facility] Medical History Breast cancer Essential hypertension Hypercalcemia Slow to wake up after anesthesia Hx of radiation therapy Hiatal hernia PONV (postoperative nausea and vomiting) Anemia History of kidney stones Proctitis Arthritis Anxiety Hyperparathyroidism Lung cancer GERD (gastroesophageal reflux disease) Asthma-COPD overlap syndrome Pulmonary hypertension Surgical History History of parathyroidectomy H/O cataract extraction Hx of cardiac catheterization Hx of varicose vein ligation and stripping History of lumpectomy of both breasts History of right inguinal hernia repair History of lithotripsy History of lobectomy of lung Hx of colonoscopy History of esophagogastroduodenoscopy Family History Mother Breast cancer Social History Household Members: Family Household Members Other:: Sister Are you a primary skin care therapist to a significant other at home: Yes (Sister) Do you presently have visiting nurse or other home services: No Patient Tobacco Use Status: Former Tobacco user Tobacco use type: Cigarette Years Smoked: 31 Review of Systems Const All systems reviewed & are unremarkable except as noted in HPI and below Denies chills, Denies fatigue, Denies fever(s), Denies weight gain and Denies weight loss ENT Denies dizziness Card Reports chest pain, Reports rapid heart rate, Denies leg edema, Denies lightheadedness, Reports palpitations, Reports dyspnea on exertion, Denies orthopnea and Denies other Resp Denies cough and Reports dyspnea on exertion GI Denies hematochezia and Denies change in stool character Musc Denies abnormal gait, Denies muscle weakness, Denies numbness, Denies radiating pain into limb and Denies tingling Neuro Denies abnormal gait, Denies dizziness, Denies numbness and Denies tingling Endo Denies fatigue and Reports palpitations Physical Exam Vital Signs: Last Vital Signs Pulse 94 03/27/24 15:59 BP 150/60 H 03/27/24 15:59 BMI result Body Mass Index 26.3 Const General: cooperative, healthy appearing, comfortable and no acute distress Orientation/consciousness: patient oriented x3 Neck Neck: Yes normal visual inspection Resp Effort & Inspection: normal respiratory effort Auscultation: clear to auscultation bilaterally, no crackles, no rales, no rhonchi and no wheezes Cardio Jugular venous distension: no JVD Rate: regular rate Rhythm: regular rhythm Heart sounds: S1 normal heart sound present, S2 normal heart sound present, no murmurs and no rubs Neuro General: patient oriented x3 Extrem Other: nonpitting leg edema - compressions socks on Psych Appearance: grossly normal Mental Status: mental status grossly normal Speech and movement: Normal speech and movement present Office Procedures EKG Details: Today , read by me, sinus rhythm with frequent PACs, nonspecific ST abnormality, rate 94, QTC 450 milliseconds [id number], Complete Assessment & Plan Assessment & Plan (1) Chest discomfort: Code(s): R07.89 - Other chest pain Category: Medical Plan: Reports of chest discomfort that she describes as a pressure/tightness going across her chest, occurring randomly. Her symptom has some typical and atypical features. She has no known history of coronary artery disease. Cardiac risk factors of age, hypertension, sedentary. EKG from today does show sinus rhythm with frequent PACs, rate 94. Last echo was done on 12/28/2022 showing EF 60-65%, mild aortic stenosis and regurgitation, yrrs-tt-[id number] mitral regurgitation. At this time with new symptoms will update echocardiogram. Will check a pharmacological nuclear stress test to evaluate for ischemia. She will not be able to exercise on the treadmill. Signs and symptoms of angina reviewed with her. Emergency care if needed for symptoms. Cardiology follow-up 3 months, sooner if needed (2) Heart palpitations: Code(s): R00.2 - Palpitations Category: Medical Plan: Reports of heart palpitations like her heart is beating fast. Holter monitor done 02/22/2024 for 3 days shows sinus rhythm with average heart rate 81, PACs 0.9%. EKG done today shows sinus rhythm with frequent PACs. She could be feeling brief atrial runs, less likely atrial fibrillation as her episodes are brief. She is on carvedilol 6.25 mg b.i.d.. She does not want increase her dose as she a says she had been on a higher dose in the past and did not tolerate it. She is unable to recall what symptoms she had. She was previously given a script for diltiazem [address] Zee. She says she has this on hand but never tried taking it. Will have her try taking diltiazem 1 capsule daily to see if this lessens her heart palpitations. It will also help with better blood pressure control. Will have our nurse call her in 1 week to reassess symptoms. (3) Nonrheumatic aortic (valve) stenosis: Code(s): I35.0 - Nonrheumatic aortic (valve) stenosis Category: Medical Plan: Last echo shows mild aortic stenosis. Murmur does not sound severe on exam. Will be updating echo. (4) Non-rheumatic mitral regurgitation: Code(s): I34.0 - Nonrheumatic mitral (valve) insufficiency Category: Medical Plan: Last echo shows peyk-wk-kacdztil mitral regurgitation. Will be updating echo. (5) Essential hypertension: Code(s): I10 - Essential (primary) hypertension Category: Medical Plan: Home blood pressures have been elevated. Office blood pressure 150/60. Having her take diltiazem as above. No other med changes made. Plan Time spent on chart review, documentation, interview and assessment Orders: Orders CA lexiscan stress w willard 03/27/24 R07.89 - Other chest pain NM cardiolite stress test 03/27/24 R07.89 - Other chest pain CA echo transthoracic complete Today I34.0 - Nonrheumatic mitral (valve) insufficiency, I35.0 - Nonrheumatic aortic (valve) stenosis, R07.89 - Other chest pain Medications: New diltiazem HCl CD 120 mg PO DAILY Coding Level of Care Code Est Pt Level 4 (76989) Complex EM visit Add On G2211 Diagnoses Chest discomfort R07.89 Heart palpitations R00.2 Nonrheumatic aortic (valve) stenosis I35.0 Non-rheumatic mitral regurgitation I34.0 Essential hypertension I10 CPT Codes EKG - CPT: [id number], Complete ([id number]) Time Spent (min) 36
== END 2024-03-27 17:19 | disposition home or self-care (01) ==
LOC: HO.HCS 15:47
PROVIDERS: PCP Internal Medicine; Visit Provider Nurse Practitioner Family
DX: R07.89 Other chest pain (principal); I35.0 Nonrheumatic aortic (valve) stenosis; I10 Essential (primary) hypertension
CPT/HCPCS: 93010; 99214; G2211

== ENCOUNTER → 2024-03-27 15:47 | Outpatient (BNVA) | payer MEDICARE, SELFPAY | PROVIDERS: PCP Internal Medicine; Visit Provider Nurse Practitioner Family | DX: I27.20 Pulmonary hypertension, unspecified (principal); I35.0 Nonrheumatic aortic (valve) stenosis; I34.0 Nonrheumatic mitral (valve) insufficiency; R07.89 Other chest pain; R00.2 Palpitations; J44.9 Chronic obstructive pulmonary disease, unspecified | CPT/HCPCS: 93005; 99212 ==

== ENCOUNTER → 2024-05-08 12:15 | Outpatient (BNV) | payer MEDICARE, SELFPAY | PROVIDERS: PCP Internal Medicine; Visit Provider Internal Medicine | DX: Z85.3 Personal history of malignant neoplasm of breast (principal) | CPT/HCPCS: 77066; G0279 ==

== ENCOUNTER 2024-05-08 12:25 | Outpatient (REF) | payer MEDICARE, SELFPAY ==
--- NOTE | ~2024-05-08 | MM_ITS ---
EXAMINATION: MM DIAGNOSTIC DIGITAL BREAST TOMOSYNTHESIS, BILATERAL CLINICAL INFORMATION: History of left breast cancer in 2020 yearly diagnostic follow up for 3 years. COMPARISON: Mammography: Comparison is made with relevant prior exams. TECHNIQUE: Digital breast mammography with tomosynthesis is performed in both the craniocaudal and mediolateral oblique views along with computer-aided detection (CAD). FINDINGS: There are scattered areas of fibroglandular density (ACR BI-RADS breast composition Category b). Limited imaging due to patient's physical limitations. Left breast post lumpectomy changes are stable. Right breast postsurgical changes are stable. Right marker clip. There are no significant masses, abnormal calcifications, or other abnormalities. Results are provided to the patient at time of visit by the technologist. MM/MM tomosynthesis diagnostic BI IMPRESSION: There are no significant changes from prior study. ASSESSMENT: BI-RADS BI-RADS 2 - Benign Findings RECOMMENDATION: 1 year F/U This patient's information was entered into a reminder system with a target due date for their next mammogram. Electronically signed by: Dee Cyr DO 05/08/2024 01:30 PM RENÉ
== END 2024-05-08 12:26 | disposition home or self-care (01) ==
LOC: HO.MAMMO 12:25
PROVIDERS: PCP Internal Medicine; Visit Provider Surgery
DX: C50.912 Malignant neoplasm of unspecified site of left female breast (principal); Z08 Encounter for follow-up examination after completed treatment for malignant neoplasm; Z85.3 Personal history of malignant neoplasm of breast
CPT/HCPCS: 77062; 77066

== ENCOUNTER 2024-05-26 15:30 | Outpatient (AMB) | payer MEDICARE, SELFPAY ==
--- NOTE | 2024-05-26 15:47 | A.OFFVIS_ITS ---
Vital Signs 05/26/24 15:48 Height 5 ft 4 in Weight 156 lb 0.5 oz BMI 26.8 BP 134/60 Blood Pressure Location Lt brachial Position Sitting Pulse 73 Pulse Source Pulse Oximeter Pulse Oximetry (%) 98 Oxygen Delivery Method Room Air Intake Visit Reasons: COPD Intake Note: pt is here for follow up and states her breathing is short at times, not sure where it is coming from heart. When it starts her chest tightens. talk about the spacer vs longer ventolin inhaler. pt needs refill on wixela. 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: No Allergies codeine Allergy (Severe, Verified 05/26/24 16:53) nausea eplerenone Allergy (Severe, Verified 05/26/24 16:53) Gastrointestinal Upset Penicillins Allergy (Severe, Verified 05/26/24 16:53) Anaphylaxis sulfamethoxazole [From BACTRIM] Allergy (Severe, Verified 05/26/24 16:53) HIVES/RASH/SWELLING tamsulosin Adverse Reaction (Severe, Verified 05/26/24 16:53) cardiac Medication List - Last Reconciled 05/26/24 by Khai Sexton MD acetaminophen 1,000 mg PO Q6H PRN albuterol sulfate 90 mcg/actuation 2 puffs inhalation Q4-6H PRN albuterol sulfate 90 mcg/actuation (Ventolin HFA) 2 puffs inhalation Q4-6H PRN 30 days albuterol sulfate 2.5 mg (6 mL) inhalation Q4-6H PRN 30 days alendronate (Fosamax) 70 mg PO QWEEK alprazolam 0.25 mg PO TID PRN amiloride 5 mg PO DAILY aspirin (Adult Aspirin Regimen) 81 mg PO DAILY carvedilol 6.25 mg PO BID clobetasol 0.05% 1 appl topical DAILY diltiazem HCl CD 180 mg PO DAILY ferrous sulfate 28 mg PO DAILY fluticasone propion-salmeterol 250-50 mcg/dose (Wixela Inhub) 1 ea inhalation BID 30 days furosemide 40 mg PO ONCE inhalational spacing device (BreatheRite MDI Spacer) As directed letrozole 2.5 mg PO DAILY mesalamine 4.8 grams PO DAILY multivitamin 1 tab PO DAILY omeprazole 20 mg PO BID potassium chloride ER 40 mEq PO BID tiotropium bromide (Spiriva with HandiHaler) 1 cap inhalation DAILY 30 days HPI HPI COPD: Details: DAJA IS 74 YEARS OLD VERY PLEASANT FEMALE, 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 DAJA HERSELF IS NONSMOKER. BUT SHE IS KNOWN TO HAVE BRONCHIAL ASTHMA/COPD, PER PULMONARY FUNCTION TEST. IN 2020 SHE IS USING HER INHALERS REGULARLY. BUT SHE STILL GETS SHORT OF BREATH IF SHE WALKS UP HILL OR WALKS FAST IN THE HOUSE. SOMETIMES SHE FEELS TIGHT IN FRONT OF THE CHEST AND THE TIME OF SHORTNESS OF BREATH. SHE HAS VERY LITTLE WHEEZING OR COUGH. SHE ADMITS THAT USING THE INHALERS ESPECIALLY SPIRIVA HANDIHALER AND WIXELA HER SHORTNESS OF BREATH HAS DEFINITELY IMPROVED FROM BEFORE. SHE IS ASKING WHETHER HER SHORTNESS OF BREATH IS DUE TO PULMONARY OR CARDIAC ISSUE I HAD A GOOD DISCUSSION WITH HER AND TOLD HER THAT BOTH CONDITIONS MAY BE CONTRIBUTING TO SHORTNESS OF BREATH. WE KNOW FROM THE PULMONARY FUNCTION TEST THAT SHE DEFINITELY HAS ASTHMA/CHRONIC OBSTRUCTIVE PULMONARY DISEASE. [facility] Medical History Breast cancer Essential hypertension Hypercalcemia Slow to wake up after anesthesia Hx of radiation therapy Hiatal hernia PONV (postoperative nausea and vomiting) Anemia History of kidney stones Proctitis Arthritis Anxiety Hyperparathyroidism Lung cancer GERD (gastroesophageal reflux disease) Asthma-COPD overlap syndrome Pulmonary hypertension Surgical History History of parathyroidectomy H/O cataract extraction Hx of cardiac catheterization Hx of varicose vein ligation and stripping History of lumpectomy of both breasts History of right inguinal hernia repair History of lithotripsy History of lobectomy of lung Hx of colonoscopy History of esophagogastroduodenoscopy Family History Mother Breast cancer Social History Household Members: Family Household Members Other:: Sister Are you a primary foster care therapist to a significant other at home: Yes (Sister) Do you presently have visiting nurse or other home services: No Patient Tobacco Use Status: Former Tobacco user Tobacco use type: Cigarette Years Smoked: 31 Review of Systems Const All systems reviewed & are unremarkable except as noted in HPI and below Eyes Reports no additional complaints ENT Reports no additional complaints Card Reports no additional complaints Resp Reports as per HPI GI Reports GI cramping (off and on ) and Reports diarrhea (off and on ) Reports no additional complaints Musc Reports no additional complaints Skin/Breast Reports system reviewed and no additional complaints, except as documented Neuro Reports no additional complaints Psych Reports no additional complaints Physical Exam Vital Signs: Last Vital Signs Pulse 73 05/26/24 15:48 BP 134/60 05/26/24 15:48 Pulse Ox 98 05/26/24 15:48 Oxygen Delivery Method Room Air 05/26/24 15:48 BMI result Body Mass Index 26.8 Const General: comfortable, no acute distress, alert and awake Orientation/consciousness: patient oriented x3 HEENT Head: Yes normal to inspection General nose exam: No nasal polyps present and No nasal discharge present Face and sinus: Yes sinuses nontender Mouth: oropharynx normal Throat: Yes posterior oropharynx normal Eyes General: appearance normal, both eyes and all related structures Neck Neck: Yes normal visual inspection, Yes no lymphadenopathy, Yes trachea midline and Yes no JVD Thyroid: Thyroid normal Chest Chest palpation & inspection: normal inspection of the chest, normal palpation of entire chest wall and no tenderness Resp Other: PERCUSSION NOTE IS RESONANT. BREATH SOUNDS. ARE DISTANT BUT EQUAL ON BOTH SIDES I DO NOT HEAR ANY WHEEZES OR RHONCHI OR CREPITATIONS. Cardio Palpation: normal PMI Rate: regular rate Rhythm: regular rhythm Heart sounds: no gallops and no murmurs GI Palpation (GI): Soft to palpation, nontender, No hepatosplenomegaly present and no masses Auscultation: normal bowel sounds Back/Spine/Pelvis Thoracic/Lumbar Spine: thoracic and lumbar spine normal to inspection Skin General skin exam: no rashes or lesions noted Neuro General: patient oriented x3 and no focal motor deficits Cranial nerves: Yes CN's II-XII intact bilaterally Extrem General: Yes normal to inspection, Yes no calf tenderness and Yes edema (CHRONIC STASIS EDEMA AROUND THE ANKLES) Psych Appearance: grossly normal and well kempt Speech and movement: Normal speech and movement present Assessment & Plan Assessment & Plan (1) Asthma-COPD overlap syndrome: Comment: SEVERE OBSTRUCTIVE LUNG DISEASE, WITH SIGNIFICANT IMPROVEMENT AFTER BRONCHODILATOR THERAPY( ASTHMA-COPD OVERLAP SYNDROME ) DOING VERY WELL WITH THE CURRENT MEDICATION ( WIXELA )AND HAS SUBJECTIVELY IMPROVED. HOWEVER SHE IS STILL SHORT OF BREATH ON MINIMAL EXERTION. Code(s): J44.9 - Chronic obstructive pulmonary disease, unspecified Category: Medical Plan: ADVISED TO CONTINUE USING WIXELA 250-50 1 INHALATION B.I.D. ALSO CONTINUE TO USE SPIRIVA HANDIHALER 1 INHALATION DAILY . VENTOLIN ( BRAND NAME) Q 6 HOURS P.R.N. TRY TO USE IT WITH A SPACER EXPLAINED THAT EVEN WITH THE OPTIMAL TREATMENT OF COPD SHE STILL EXPECTED TO HAVE SOME SHORTNESS OF BREATH ON EXERTION ALSO EXPLAINED THAT SHE MAY HAVE SOME COMPONENT OF CARDIAC DISEASE CONTRIBUTING TO HER SHORTNESS OF BREATH (2) Pulmonary hypertension: Comment: PULMONARY HYPERTENSION MOST LIKELY CAUSED BY COPD. SHE HAD A REPEAT ECHOCARDIOGRAM AT [facility] AND WAS TOLD THAT SHE DID NOT HAVE PULMONARY HYPERTENSION ANYMORE. Code(s): I27.20 - Pulmonary hypertension, unspecified Category: Medical Plan: EXPLAINED ABOUT THE ABOVE FINDING Medications: Changed From fluticasone propion-salmeterol 250-50 mcg/dose (Wixela Inhub) 1 ea inhalation BID 60 ea 3RF J44.9 - Chronic obstructive pulmonary disease, unspecified To fluticasone propion-salmeterol 250-50 mcg/dose (Wixela Inhub) 1 ea inhalation BID 30 days 60 ea 5RF J44.9 - Chronic obstructive pulmonary disease, unspecified Refilled tiotropium bromide (Spiriva with HandiHaler) puncture 1 cap using device; one dose = 2 inhalations 1 cap inhalation DAILY 30 days 30 inhalations 5RF COPD Coding Level of Care Code Est Pt Level 3 (39694) Diagnoses Asthma-COPD overlap syndrome J44.9 Pulmonary hypertension I27.20
[2024-05-26 15:48] VITALS: BP 134/60; PULSE 73; O2SAT 98; BMI 26.8
== END 2024-05-26 16:20 | disposition home or self-care (01) ==
PROVIDERS: PCP Internal Medicine; Visit Provider Internal Medicine
DX: J44.9 Chronic obstructive pulmonary disease, unspecified (principal); I27.20 Pulmonary hypertension, unspecified
CPT/HCPCS: 99213

== ENCOUNTER → 2024-05-26 15:30 | Outpatient (BNVA) | payer MEDICARE, SELFPAY | PROVIDERS: PCP Internal Medicine; Visit Provider Internal Medicine | DX: J44.9 Chronic obstructive pulmonary disease, unspecified (principal); I27.20 Pulmonary hypertension, unspecified | CPT/HCPCS: 99212 ==

== ENCOUNTER → 2024-06-09 15:11 | Outpatient (REF) | payer MEDICARE, SELFPAY ==
--- NOTE | 2024-06-09 15:13 | CA_ITS ---
Transthoracic Echocardiogram Patient (Last, First, Middle): Eliza Ann P Gender: Female Date of : 1950 Age: 74 Procedure Date: 06/09/2024 Procedure Type: Transthoracic Echocardiogram Location: OP Height: 162.56 cm Weight: 70.76 kg BSA: 1.76 m2 Heart Rate: bpm BP: 134 / 60 mmHg Commercial Collections Driver: COLTON Referring MD: Zakia Kasper DATA MANAGEMENT ANALYST-C Symptoms: R07.89 - Other chest pain Study Quality: Fair Conclusions: - The left ventricular systolic function is normal. The calculated ejection fraction is 66% by biplane method. - Aortic valve sclerosis but no significant stenosis. - Severe mitral annular calcification with evidence of stenosis. Mitral valve area by VTI 1.5 sq cm. Mean gradient 6 mm Hg at 77/Min. Findings Left Ventricle Normal left ventricular cavity size. There is normal left ventricular wall thickness. The left ventricular systolic function is normal. The calculated ejection fraction is 66% by biplane method. There is no evidence of regional wall motion abnormalities. Evidence suggests grade I (mild) diastolic dysfunction. Right Ventricle Normal right ventricular cavity size and systolic function. Atria The left atrium is moderately dilated. The right atrium is normal in size. Aortic Valve There is moderate calcification of the aortic valve. There is trace (trivial) aortic valve regurgitation. No significant aortic stenosis. Mitral Valve There is severe mitral annular calcification. There is mild mitral valve regurgitation. There is progressive mitral stenosis. Mitral valve area by VTI 1.5 sq cm. Mean gradient 6 mm Hg at 77/Min. Pulmonic Valve The pulmonic valve is likely normal. Tricuspid Valve There is trace tricuspid valve regurgitation. Mild pulmonary hypertension is present. Great Vessels The asc aorta is normal in size. Small plaque is seen in the ascending aorta. Venous The inferior vena cava is mildly dilated and collapses less than 50% with inspiration. Pericardium/Pleural There is no evidence of pericardial effusion. Prior Study Comparison No significant change compared to prior study dated: 12/28/2022. Measurements 2D Linear Measurements IVSd: 0.92 0.6-0.9/0.6-1.0 cm LVIDd: 4.21 3.9-5.3/4.2-5.9 cm LVIDd Index: 2.39 2.4-3.2/2.2-3.1 cm/m2 LVIDs: 2.91 2.0-3.6 cm LVPWd: 0.82 0.7-1.1 cm LA Diam: 4.00 2.7-3.8/3.0-4.0 cm LAIDs Index: 2.27 1.5-2.3 cm/m2 LV Mass: 142.24 67-162/88-224 g LV Mass Index: 80.82 43-95/49-115 g/m2 LVOT Diam: 2.00 3.0+(-)1.3 cm 2D Systolic Function EF 4C: 67.00 >55% EF 2C: 62.80 >55% EF BiP: 65.90 >55% Mitral Valve MV VTI: 0.54 MV Pk Perez: 1.75 MV Mn Perez: 1.13 MV Pk Grad: 12.00 MV Mn Grad: 6.00 MV Pk E: 1.49 MV PK A: 1.75 MV Decel Time: 197.00 E/A: 0.90 E'Lateral: 8.70 E'Medial: 6.64 E/E' Med: 22.40 E/E' Lat: 17.10 PHT: 58.00 MVA PHT: 3.79 MVA Continuity: 1.52 Decel [place]: 7.56 Aortic Valve AoV Pk Perez: 1.98 AoV Mn Perez: 1.31 AoV VTI: 0.47 AoV Pk Grad: 16.00 Aov Mn Grad: 8.00 LEX Cont.VTI: 1.74 LVOT LVOT Pk Perez: 1.17 LVOT Mn Perez: 0.77 LVOT VTI: 0.26 LVOT Pk Grad: 5.00 LVOT Mn Grad: 3.00 LVOT Diam: 2.00 LVOT Area: 3.14 Diastolic Function MV Pk E: 1.49 MV Pk A: 1.75 E/A: 0.90 E'Medial: 6.64 E/E' Med: 22.40 E' Laterial: 8.70 E/E' Lat: 17.10 Right Ventricle TAPSE (mm): 27.70 TVS' Perez: 15.40 Tricuspid Valve TR Pk Perez: 2.61 TR Pk Grad: 27.00 RA Press: 15.00 RVSP: 42.00 Great Vessels Aorta Sinus of Valsalva: 3.10 2.0-3.[address] [place]: 2.30 1.7-3.4 cm Ao Asc: 3.30 2.1-3.4 cm Updated in Other Vendor System with Status of Final Ronaldo Zee MD electronically signed on 06/10/2024 11:15:42 AM with status of Final
--- OUTSIDE RECORDS SUMMARY | 2024-06-09 19:19 | XMS_ITS ---
Author Organization [facility] Address [address] [place] [id number] Care Team Providers Care Automotive Metalsmith Name Role Phone Joseph Valencia MD Primary Care Provider Merle Lopez [phone] Encounters Encounter Location Date Provider Diagnosis [address] [address] 11/06/2023 Merle Parker Plan Of Treatment No Information Progress Notes * Eliza RINCON PDOB: (74 yo F)Acc No.[id number]:11/06/2023 Progress Notes Patient:?Eliza RINCON Provider:?Merle Parker DPM :1950???Age:73 Y???Sex:Female D ate:11/06/2023 Address:[address] [place], [place] [id number] Pcp:Joseph Valencia MD Subjective: * Chief Complaints: * ??? * Medical History:? Objective: * Vitals:? Assessment: Plan: * Treatment: * Images: * The named appointment provid er may or may not be the originator of this progress note, and it is not deemed complete until electronically signed by the appointment provider. Sign off status: Pending * Provider:?Merle Parker DPM Date:? Generated for Pina bennett/Rozina/eTransmitting on:?06/09/2024 06:23 PM EST
--- OUTSIDE RECORDS SUMMARY | 2024-06-09 19:19 | XMS_ITS ---
Author Organization [facility] Address [address] [place] [address] Care Team Providers Care Fire Extinguisher Sprinkler Inspector Name Role Phone Joseph Valencia MD Primary Care Provider Merle Lopez [phone] REASON FOR VISIT cx ON 11/05 Encounters Encounter Location Date Provider Diagnosis [address] [address] 11/01/2023 Merle Parker Plan Of Treatment No Information Progress Notes * Eliza RINCON PDOB: (73 yo F)Acc No.[id number]:11/01/2023 Patient:?Eliza Ricnon :1950???Age:73 Y???Sex:Female Address:[address] [place] [address], [id number] * true * Date:? Generated for Andrei sabrina/Rozina/eTransmitting on:?06/09/2024 06:24 PM EST
--- OUTSIDE RECORDS SUMMARY | 2024-06-09 19:19 | XMS_ITS ---
Author Organization [facility] Address [address] [place] [address] Care Team Providers Care Transition Lead Name Role Phone Joseph Valencia MD Primary Care Provider UnavailGeorge Ferguson Unavailable [phone] George Dias MD Unavailable REASON FOR VISIT still awaiting results of heart moniter Encounters Encounter Location Date Provider Diagnosis [facility] [address] [place] [address] 03/05/2024 George Nguyen PLAN OF TREATMENT Next Appt Details Provider Name:George Nguyen , 06/11/2024 04:00:00 PM, [address], [address], [place], [address],
--- OUTSIDE RECORDS SUMMARY | 2024-06-09 19:19 | XMS_ITS | Patient Health Record ---
Author Organization [facility] Address [address] [place] [address] Care Team Providers Care Button Station Worker Name Role Phone Joseph Valencia MD Primary Care Provider UnavailMerle Mejia Unavailable [phone] Allergies Allergen (clinical drug ingredient) Drug/Non Drug Allergy documented on EMR Reaction Allergy Type Onset Date Status amoxicillin Amoxicillin hives, SOB Drug Allergy Ac tive Atrovent Unknown Drug Allergy Active sulfamethoxazole / trimethoprim Bactrim hives, SOB Drug Allergy Active sulfa hives, SOB Drug Allergy Active Penicillin hives, SOB Drug Allergy Activ e codeine Codeine nervous Drug Allergy Active Reason For Referral No Information Medications Medication SIG (Take, Route, Frequency, Duration) Notes Start Date End Date Status Aspirin 81 MG Orally Once a day Active Albuterol Sulfate (2.5 MG/3M L) 0.083% Inhalation Active Biotin Active Multivitamin Active Proventil HFA 108 (90 Base) MCG/ACT Inhalation Active Clobetasol Propionate 0.05 % Externally Once a day Active hydroCHLOROthiazide 12.5 MG Orally BID Active Zantac 150 Maximum Strength 150 MG 1 tablet at bedtime Orally TID Active Probiotic Active Coconut Oil Active Urea 40 % 1 application to affected area on feet Externally Twice a day for 30 days 06/19/2018 Active Evista 60 MG Orally Once a day Active Xanax 0.25 MG Orally TID Activ e Tylenol extra strength as needed Active Social History Tobacco Use: Social History Observation Description Date Details (start date - stop date) Former Smoker NA - NA Tobacco Use/Smoking Question Answer Notes Are you a: former smoker Additional Findings: Tobacco Non-User Current no n-smoker Alcohol Screen Question Answer Notes Did you have a drink containing alcohol in the p ast year? No Points 0 Interpretation Negative Tobacco use other than smoking: Question Answer Notes Are you an other tobacco user? No Problems Problem Type SNOMED Code ICD Code Onset Dates Problem Status W/U Status Risk Notes Problem 8507339 Psoriasis (L40.9) Active confirmed Problem 97494392 Varicose veins of both legs with edema (I83.893) Active confirmed Encounters Encounter Location Date Provider Diagnosis [facility] [address] [place] [address] 11/01/2023 Merle Parker Plan Of Treatment Pending Test Test Name Order Date Ultrasound : Extremity Ultrasound Non-[place] sc 04/12/2018 X ray : Foot, left 3V 03/22/2018 X ray : Foot, right 3V 03/22/2018- Ganglion Cyst Injection/Aspiratio n 03/22/2018 Insurance Providers Payer Name Payer Address Payer Phone Subscriber Number Group Number Insured Name Patient Relationship to Insured Coverage Start Date Coverage End Date [employer] [place] [employer]age [facility] [address] [place] [address] [phone] [id number] Eliza Shields Self - patient is the insured Medical (General) History Medical History History ICD Code Anxiety Back,Hip,and Knee pain Cancer Hiatal hernia Sciatica Psoriasis/eczema Stomach ulcer hyperparathyroidism Surgical History Surgery Date(Month/Year) lung lobectomy right and left 1998
--- OUTSIDE RECORDS SUMMARY | 2024-06-09 19:19 | XMS_ITS ---
Author Organization George Dias III, MD Address [address] [place] [address] Care Team Providers Care Artificial Glass Eye Maker Name Role Phone Joseph Valencia MD Primary Care Provider George Ren Unavailable [phone] Allergies Allergen (clinical drug ingredient) Drug/Non Drug [...] Date Provider Diagnosis George Dias III, MD [address] [place] [address] [place] [address] 09/03/2023 George Dias Ductal carcinoma in situ [...] Her reflux symptoms are well controlled with kvgh-acb-pgduofg medication. 09/03/2023 Essential hypertension (ICD-10 - I10) [...] Details Follow Up: 6 Months, Reason: OV Provider Name:George Dias, 09/09/2024 04:00:00 PM, [address] [place] [address] [place] [place], [place], [address], Progress Notes * DAJA PEACE PDOB: (73 yo F)Acc No.[id number]:09/03/2023 Progress Notes Patient:?MARLIN PEACE L P Provider:?George Dias MD :1950???Age:73 Y???Sex:Female D ate:09/03/2023 Address:[address] [place], [place] [address] Pcp:Joseph Valencia MD Subjective: * Chief Complaints: * ???Carcinoma of the left gregg astBilateral DCISHypertensionPsoriatic arthritis * HPI: ???COVID-19 Screening:? She returns for evaluation and management of her adjuvant endocrine therapy or invasive carcinoma left breast and bilateral DCIS. She continues on letrozole 2.5 mg daily without side effects. She has been told she needs surgery for hyperparathyroidismAnd has been referred to endocrinology. She is seeing a pack worker supervisor as well as a vascular surgeon for peripheralVascular disease.She has remained in remission from the breast cancer. No changes in her regimen were made today. ?Questions?Have you experienced fever, chills, cough, sore throat, shortness of breath, difficulty breathing, muscle aches, loss of taste or smell??No ?Have you been exposed to the virus within the last 10 days??No ?Have you travelled internationally in the last 10 days??No ?Have you been exposed to COVID-19 in the past??Yes * ROS:?General/Constitutional:?pain?Neck with range of motion, otherwise only normal aches and pains.?Chills?denies.?Fatigue?admits.?Fever?denies.?ENT:?Decreased hearing?denies.?Respiratory:?Cough?denies.?Cardiovascular:?Chest pain with exertion?denies.?Dyspnea on exertion?denies.?Shortness of breath?denies.?Gastrointestinal:?Constipation?occasional.?Decreased appetite?denies.?Diarrhea?denies.?Heartburn?denies.?Nausea?denies.?Rectal bleeding?denies.?Vomiting?denies.?Hematology:?bruising?denies.?petechiae?denies.?Swollen glands?none have been noted.?Genitourinary:?Frequent urination?at night.?Musculoskeletal:?Muscle aches?denies.?Painful joints?Fingers, Neck.?Sciatica?denies.?Weakness?denies.?Skin:?Itching?denies.?Rash?denies.?Skin lesion(s)?denies.?Neurologic:?Difficulty speaking?denies.?Dizziness?denies.?Headache?denies.?Low back pain?denies.?Psychiatric:?Depressed mood?denies.? * Medical History:? * Surgical History:?right uppe r lobectomy, stage I adenocarcinoma of, Dr. Scherer 1998Lumpectomy and sentinel nodes left breast major veins removed right leg 1 major vein removed- Dr. Lo 36 weeks radiation . Left breast 11/1998Right breast lumpectomy with 2 needle localization (DP) 03/2019multiple negative endometrial biopsies Lumpectomy and sentinel node biopsy left breast, [facility], Dr. Mixon 04/2021 * Hospitalization/Major Diagno stic Procedure:?Denies Past Hospitalization * Family History:?Father: dece ased 68 yrs, COPD, hypertension, CVD, diagnosed with CVD, HTN.?Mother: , diagnosed with Cancer, CVD.?Siblings: unknown.?Maternal Grand Father: alive, diagnosed with DM.?Maternal aunt: diagnosed with Cancer.?1 brother(s) , 2 sister(s) . 1 son(s) [...] son is healthy and well. * Social History:?Tobacco Use:?Tobacco Use/Smoking?Patient is a?former smoker ?How long has it been since you last smoked??> 10 years ?Additional Findings: Tobacco Non-User?Ex-cigarette smoker ???She has been to [place] for 49 years. They have 1 son. Her sister with dementia, lives with them. She is retired and no longer smokes cigarettes. * Medications:?TakingTylenol E xtra Strength 500 MG Tablet 1 tablet as [...] reviewed and reconciled with the patient * Allergies:?PenicillinSulface tamideCodeine: stomach upsetno[Allergies Verified] Objective: * Vitals:?Ht: 66, Wt:146, BMI: 23.56, BP:139/66, HR:87, Temp:97.9, Wt-k.22. * Examination: ???General Examination: ?GENERAL APPEARANCE:?pleasant, well nourished, well developed, in no acute distress, calm and relaxed , woman.?HEAD:?atraumatic, normocephalic.?EYES:?eomi, perrla, anicteric, conjugate.?EARS:?normal.?NOSE:?septum intact.?ORAL CAVITY:?normal, unremarkable.?NECK/THYROID:?no jugular venous distention, no carotid bruit, thyroid normal, Moderate torticollis to the left.?LYMPH NODES:?no enlarged lymph nodes,spleen normal.?SKIN:?no suspicious lesions, anicteric.?HEART:?no clicks, gallops, murmurs, or rubs, regular rhythm, S1, S2 normal, no s3, or vascular bruits.?LUNGS:?clear to auscultation , no wheezes, rales, rhonchi , good air movement, Old healed right thoracotomy scar with drain sites.?BREASTS:?no masses palpable bilaterally , no dimpling , no discharge , no drainage , nontender , symmetrical, Axillary scar well-healed, bilateral lumpectomy scars healed, no new findings.?ABDOMEN:?bowel sounds normal, no ascites, no organomegaly, no mass.?RECTAL EXAM:?not examined.?MUSCULOSKELETAL:?extremities unremarkable, no clubbing, cyanosis or edema, Arthritic changes fingers.?PERIPHERAL PULSES:?normal.?NEUROLOGIC:?alert and oriented, cranial nerves 2-12 grossly intact, deep tendon reflexes 2+ symmetrical, motor strength normal upper and lower extremities, sensory exam intact.?PSYCH:?alert, oriented.? Assessment: * Assessment: 1.?Ductal carcinoma in situ (DCIS) of right breast - D05.11 (Primary), Her lumpectomy scar is well-healed and there are no new findings.?2.?Ductal carcinoma in situ (DCIS) of left breast - D05.12, This was detected in 1998 and treated then. I recurrent cancer in her breast is recently been detected.Her examination today was unremarkable?3.?Overweight - E66.3, This problem has resolved and will be removed from her problem list?4.?Fibromyalgia - M79.7, Her symptoms are stable and unchanged.?5.?Hyperglycemia - R73.9, Her blood pressure is controlled and no change in her regiimen as needed.?6.?GERD without esophagitis - K21.9, Her reflux symptoms are well controlled with gfkc-yld-geniweo medication.?7.?Essential hypertension - I10, Her blood pressure is 140/80. She is stable and no change in her regimen was needed. I recommended continued sodium restriction.?8.?Former smoker - Z87.891, She has been abstinent since 1998. She has a plan to prevent relapse in times of stress and illness.?9.?Psoriatic arthritis - L40.50, She has mild arthritic changes in her fingers. No change in her therapy as needed. 10.?Adenocarcinoma of right lung - C34.91, There was no sign of her recurrent cervical new primary today.? Plan: * Treatment: 2.?Overweight?LAB: PROFILE, FASTING (COMPREHENSIVE METABOLIC) ?LAB: MICROALBUMIN, RANDOM ?LAB: CBC WITH AUTO DIFF ?LAB: Hemoglobin A1c 3.?Fibromyalgia?LAB: PROFILE, FASTING (COMPREHENSIVE METABOLIC) ?LAB: MICROALBUMIN, RANDOM ?LAB: CBC WITH AUTO DIFF ?LAB: Hemoglobin A1c 4.?Others? Continue Furosemide Tablet, 20 MG, TAKE 1 TABLET BY MOUTH EVERY DAY FOR 30 DAYS;?Continue Letrozole Tablet, 2.5 MG, TAKE 1 TABLET BY MOUTH EVERY DAY FOR 30 DAYS.?? * Procedure Codes:? * Preventive Medicine:? ??Counseling:?Smoking/Tobacco Use?Patient counseled on the dangers of tobacco use and urged to quit.?09/03/2023 * Follow Up:?6 Months (Reason: OV) * Images: * Sign off status: Completed true * Provider:?George Dias MD Date:?08/13 Generated for Pina bennett/Rozina/eTransmitting on:?06/09/2024 06:23 PM EST History and Physical Notes * HPI (History of Present Illness) Category Sub-Category Detail Notes COVID-19 Screening Questions Have you had any new onset fever, chills, cough, congestion, sore throat, shortness of breath, muscle aches?: No Have you been exposed to the virus withi n the last 10 days?: No Have you travelled internationally in [facility] last 10 days?: No Have you been exposed to COVID-19 in the past?: Yes Examination Category Sub-Category Detail Notes General Examination GENERAL APPEARANCE: pleasant , well nourished, well developed, in no acute distress, calm and relaxed , woman HEAD: atraumatic, normocep halic EYES: eomi, perrla, anicte tavni, conjugate EARS: normal NOSE: septum intact NECK/THYROID: [...]
--- OUTSIDE RECORDS SUMMARY | 2024-06-09 19:19 | XMS_ITS | Patient Health Record ---
Author Organization [facility] Address [address] [place] [address] Care Team Providers Care Geothermal Technician Name Role Phone Joseph Valencia MD Primary Care Provider George Reese Unavailable [phone] George Dias MD Unavailable Unavailable ALLERGIES Allergen (clinical drug ingredient) Drug/Non Drug Allergy documented on EMR Reaction Allergy Type Onset Date Status codeine Codeine Unknown Drug Allergy Active Substance with sulfonamide structure and antibacterial mechanism of action (substance) Sulfa (uncoded) Unknown Allergy Active Penicillin (uncoded) Unknown Allergy Active RESULTS Component Value Reference Range Notes Pathology Reviewed date:01/17/2024 02:55:38 PM Interpretation: Performing Lab:[facility], [address] [place] [id number] Notes/Report: REASON FOR REFERRAL No Information MEDICATIONS Medication SIG (Take, Route, Frequency, Duration) Notes Start Date End Date Status Mesalamine 1000 MG 1 Rectal Nightly for 30 days Active Lialda 1.2 GM 4 Orally Once a day for 30 day(s) Please let my office know if the insurance is not covering this and we can try a different mesalamine product. Thanks 01/05/2024 Active Mesalamine 1.2 GM 4 Orally Once a day for 30 day(s) 02/02/2024 Active Tylenol Extra Strength Active Albuterol Sulfate HFA 108 (90 Base) MCG/ACT Inhalation for 25 A ctive Mesalamine 1000 MG 1 suppository at bedtime Rectal Every night at bedtime for 30 day(s) 07/20/2023 Active Iron Active Turmeric Active Kagera Active Carvedilol 3.125 MG PLEASE SEE ATTACHED FOR DETAILED DIRECTIONS Oral for 90 Active ALPRAZolam 0.5 MG as directed Orally 4x a day Active Potassium Chloride ER 10 MEQ Oral for 90 Active Letrozole 2.5 MG Oral for 90 A ctive Omeprazole 20 MG 1 Orally BID Active Albuterol Sulfate (2.5 MG/3ML) 0.083% INHALE 1 VIAL EVERY 4 HOURS BY MOUTH NEEDED Inhalation for 25 Active Furosemide 40 MG 1 tablet Orally Once a day Active Multivitamin - 1 tablet Orally Once a day for 30 day(s) Active Aspir-81 once a day Active IMMUNIZATIONS Vaccine Route Administration Date Status Comme nts Influenza Unknown 03/29/2020 Administered Influenza Unknown 09/26/2023 Refused SOCIAL HISTORY Tobacco Use: Social History Observation Description Date Details (start date - stop date) Former Smoker NA - NA Sex Assigned At : Social History Observation Description Sex Assigned At Unknown Tobacco Use/Smoking Question Answer Notes Patient is a former smoker When did you start smoking? 15 years old When did you stop smoking? 48 years old How long has it been since you last smoked? > 10 years Additional Findings: Tobacco Non-User Ex-cigaret te smoker Alcohol Screen Question Answer Notes Did you have a drink containing alcohol in the p ast year? 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 Benign neoplasm of colon (85252028) Problem 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) Active confirmed Pro ctitis (1137740) Problem Encounter for screening for malignant neoplasm of colon (Z12.11) Active confirmed Screening for malignant neoplasm of colon (706434647) Problem Diverticulosis of colon (K57.30) Active confirmed Diverticulosi s of colon (839923547) Problem Ulcerative colitis (K51.90) Active confirmed Ulcerative colitis (53999492) Problem Diverticulosis of large intestine without perforation or abscess without bleeding (K57.30) Active confirmed Diverticul ar disease of colon (831613208) VITAL SIGNS Temperature 97.8 degrees Fahrenheit 09/26/2023 Blood pressure diastolic 00 mm Hg 09/26/2023 Height 65 in 09/26/2023 Blood pressure systolic 000 mm Hg 09/26/2023 Weight 150 lbs 09/26/2023 BMI 24.96 kg/m2 09/26/2023 Encounters Encounter Location Date Provider Diagnosis [facility] [place] [address] [place] [id number] 01/04/2024 George Nguyen Colon cancer screeni ng Z12.11 ; Colon polyps K63.5 ; Ulcerative colitis K51.90 and Diverticulosis of large intestine without perforation or abscess without bleeding K57.30 [facility] [address] [place] [address] 09/26/2023 George Nguyen Rectal bleed K62.5 ; Gastroesophageal reflux disease, esophagitis presence not specified K21.9 ; Tubulovillous adenoma of colon K63.5 ; Proctitis K62.89 and Encounter for screening for malignant neoplasm of colon Z12.11 [facility] [address] [place] [address] 06/11/2023 George Nguyen [facility] [address] [place] [address] 07/19/2023 George Nguyen [facility] [address] [place] [address] 10/23/2023 George Nguyen [facility] [address] [place] [address] 12/31/2023 George Nguyen [facility] [address] [place] [address] 01/03/2024 George Nguyen [facility] [address] [place] [address] 01/05/2024 George Nguyen [facility] [address] [place] [address] 02/02/2024 George Nguyen [facility] [address] [place] [address] 02/06/2024 George Nguyen [facility] [address] [place] [address] 02/11/2024 George Nguyen [facility] [address] [place] [address] 03/05/2024 George Nguyen [facility] [address] [place] [address] 04/02/2024 George Nguyen ASSESSMENTS Encounter Date Diagnosis Assessment Notes Treatment Notes Treatment Clinical Notes 01/04/2024 Colon cancer screeni ng (ICD-10 - Z12.11) 01/04/2024 Colon polyps (ICD-10 - K63.5) 09/26/2023 Gastroesophageal reflux disease, esophagitis presence not specified (ICD-10 - K21.9) 09/26/2023 Rectal bleed (ICD-10 - K62.5) Use the Mesalamine suppository every night for a week or so to stop the bleeding and then use it every 2nd or 3rd night if you want to. 01/04/2024 Ulcerative colitis (ICD-10 - K51.90) 09/26/2023 Tubulovillous adenom a of colon (ICD-10 - K63.5) 01/04/2024 Diverticulosis of large intestine without perforation or abscess without bleeding (ICD-10 - K57.30) 09/26/2023 Proctitis (ICD-10 - K62.89) 09/26/2023 Encounter for screening for malignant neoplasm of colon (ICD-10 - Z12.11) Stop the aspirin, Iron, and Turmeric for 1 week before the colonoscopy Do not take the Furosenide the day before nor on the day of the colonoscopy. PLAN OF TREATMENT Pending Test Test Name Order Date US ABD 02/10/2020 Future Test Test Name Order Date UPPER GI ENDOSCOPY 01/22/2020 COLONOSCOPY 01/22/2020 COLONOSCOPY 09/29/2020 COLONOSCOPY 09/26/2023 Next Appt Details Provider Name:George Nguyen , 06/11/2024 04:00:00 PM, [address], [address], [place], [address], Insurance Providers Payer Name Payer Address Payer Phone Subscriber Number Group Number Insured Name Patient Relationship to Insured Coverage Start Date Coverage End Date [facility] [address] [facility] [phone] [id number] DAJA YOUNG Self - patient is the insured MEDICAL (GENERAL) HISTORY Medical History History ICD Code Lung cancer - 1998--Removed upper right lobe Breast cancer-1998 Left--surgery and XRT ; and 03/2019 Right--surgery and XRT GERD Overactive parathyroid Anxiety Arthritis Colonoscopy in 2004 was neg. except for a hyperplastic polyp Denies FL,DM,CVA,renal disease COPD Colonscopy in 01/2020 with a distal ulcerative proctitis that responded well to Mesalamine suppositories; she also had 3 flat > 1cm tubulovillous adenomas removed from the region of the cecum and proximal ascending colon EGD in 01/2020 with a small h iatal hernia--there was no esophagitis, Greer's esophagus, nor ulcer disease--gastric biopsies were negative for H. pylori Negative abdominal ultrasoun d in regard to gallstones in February of 2020. However, the report does describe some kidney stones but without any hydronephrosis Kidney stones as above Colonoscopy 02/2021 with 3 small tubular adenomas; no active proctitis Surgical History Surgery Date(Month/Year) RUL lung resection for cancer Lumpectomies right and left breast for cancer with left sided node dissection Right inguinal hernia repair Cateracts left and right -Dr. Aman Haro surgery on both eyes Vein surgery left leg - Dr. Aponte 01/2023 Parathyroid surgery scheduiled for at [facility]--Dr. Arroyo
--- OUTSIDE RECORDS SUMMARY | 2024-06-09 19:19 | XMS_ITS ---
Author Organization [facility], MD Address [address] [place] [address] [place] [address] Care Team Providers Care Planner Chief Name Role Phone Joseph Valencia MD Primary Care Provider Karoa George Hargrove [phone] REASON FOR VISIT wants lab results done on 09/10/2023 Encounters Encounter Location Date Provider Diagnosis George Dias III, MD [address] [place] [address] [place] [address] 09/12/2023 George Dias Plan Of Treatment Next Appt Details Provider Name:George Dias, 09/09/2024 04:00:00 PM, [address] [place] [address] [place], [address], Progress Notes * DAJA PEACE PDOB: (73 yo F)Acc No.[id number]:09/12/2023 Patient:?MARLIN PEACE :1950???Age:73 Y???Sex:Female Address:[address] [place] [address] [facility] [place], [address] * true * Date:? Generated for Pina bennett/Rozina/eTransmitting on:?06/09/2024 06:23 PM EST
--- OUTSIDE RECORDS SUMMARY | 2024-06-09 19:19 | XMS_ITS | Patient Health Record ---
Author Organization George Dias III, MD Address [address] [place] [address] Care Team Providers Care Stitch Marker Name Role Phone Joseph Valencia MD Primary Care Provider George Ren Unavailable [phone] Allergies Allergen (clinical drug ingredient) Drug/Non Drug Allergy documented on EMR Reaction Allergy Type Onset Date Status sulfacetamide Sulfacetamide Unknown Drug Allergy Active Penicillin Unknown Drug Allergy Active codeine Codeine stomach upset Drug Allergy Act janet Results Component Value Reference Range Notes Complete Blood Count Auto Di ff Reviewed date:02/11/2024 08:40:31 AM Interpretation: Performing Lab:[facility], [address] [place] [phone] Notes/Report: White Blood Count 8.6 4.8-10.8 X10*3/uL Red Blood Count 4.44 4.20-5.50 X10*6/uL Hemoglobin 13.4 12.0-16.0 g/dl Hematocrit 42.1 37.0-47.0 % Mean Corpuscular Volume 94.8 80.0-98.0 fL Mean Corpuscular Hemoglobin 30.2 27.0-33.0 pg Mean Corpuscular HGB Conc 31.8 31.0-35.0 g/dl Red Cell Distribution Width 13.2 11.0-16.0 % Platelet Count 215 160-400 X10*3/uL Mean Platelet Volume 10.0 9.4-12.3 fL Neutrophils Percent Auto 65.1 45-73 % Imm Gran Pct Auto 0.3 0.0-0.4 % Lymphocytes Percent Auto 24.9 20-40 % Monocytes Percent Auto 7.6 2-11 % Eosinophils Percent Auto 1.6 0-4 % Basophils Percent Auto 0.5 0-2 % NRBC Pct Auto 0.0 0.0-0.2 /100WBC Neutrophils Absolute Auto 5.6 2.0-8.3 x10*3/u L Imm Gran Abs Auto 0.03 0.00-0.03 X10*3/uL Lymphocytes Absolute Auto 2.2 1.2-4.9 X10*3/u L Monocytes Absolute Auto 0.7 0.1-1.2 X10*3/uL Eosinophils Absolute Auto 0.1 0.0-0.4 X10*3/u L Basophils Absolute Auto 0.0 0.0-0.2 X10*3/uL NRBC Abs Auto 0.000 0.0-0.012 X10*3/uL Comprehensive Met. Panel Reviewed date:02/11/2024 08:40:31 AM Interpretation: Performing Lab:[address] [address] Notes/Report: Sodium 141 135-145 mmol/L Potassium 4.0 3.3-5.1 mmol/L Chloride 109 96-108 mmol/L Carbon Dioxide 24 22-29 mmol/L Anion Gap 12 12-20 Blood Urea Nitrogen 12 9-16 mg/dL Creatinine 0.64 0.5-1.4 mg/dL Estimated Glomerular Filt Rate > 60 NOTE: For -Dominican individuals, multiply the result by 1.210. Chronic Kidney Disease: Estimated GFR < 60 mL/min/1.73m2 Severe Kidney Disease: Estimated GFR < 15 mL/min/1.73m2 Glucose Random 87 60-115 mg/dL Calcium 9.5 8.4-10.2 mg/dL Bilirubin Total 0.6 0.0-1.0 mg/dL Aspartate Amino Transferase 17 5-31 U/L Alanine Aminotransferase 24 0-31 U/L Total Protein 6.8 6.5-8.0 g/dL Albumin Level 4.0 3.5-5.0 g/dL Alkaline Phosphatase 59 39-117 U/L Microalbumin, Random Reviewed date:02/11/2024 08:40:31 AM Interpretation: Performing Lab:[address] [address] Notes/Report: RECEIVED Creatinine Urine 69.30 Microalbumin Urine 26.0 Microalbum/Creatinine Ratio Ur 37.5 <30 ug/mg cr Albumin/Creatinine Ratio Reference Ranges: Normal: < 30 ug/mg creatinine Microalbuminuria: 30 - 300 ug/mg creatinine Clinical Albuminuria: > 300 ug/mg creatinine Hemoglobin A1c Reviewed date:02/11/2024 08:40:31 AM Interpretation: Performing Lab:[facility], [address] [place] [phone] Notes/Report: Hemoglobin A1c % 5.6 <6.0 % Hemoglobin A1C Reference Range Adults: 4.8 - 6.0 % Non diabetic: < 6.0 % Goal: < 7.0 % Additional Action Suggested: > 8.0 % Note: Hemoglobin A1c results are invalid for patients with abnormal amounts of HbF. Blood transfusions may impact the HbA1c concentration in the patient sample. Estimated Average Glucose 114 eAG = Estimated average glucose which is %A1C expressed as average glucose, using the formula of the [id number]-Wnyoezz Average Glucose study (ADAG), Diabetes Care, Vol.31,#8, Dec. 2007 Reason For Referral No Information Medications Medication SIG (Take, Route, Frequency, Duration) Notes Start Date End Date Status Furosemide 20 MG TAKE 1 TABLET BY KAROL TH EVERY DAY FOR 30 DAYS Active Letrozole 2.5 MG TAKE 1 TABLET BY KAROL TH EVERY DAY FOR 30 DAYS Active Biotin 1000 MCG 1 tablet Orally Once a day Active Carvedilol 3.125 MG 2 tablet with food Oral Twice a day Active Omeprazole 20 MG 1 capsule 30 minutes before morning meal Orally Once a day Active Albuterol Sulfate HFA 108 (9 0 Base) MCG/ACT INHALE 2 PUFFS BY MOUTH EVERY 4-6 HOURS NEEDED FOR WHEEZING Inhalation Active Multi Vitamin - 1 tablet Orally Once a day Active Tylenol Extra Strength 500 MG 1 tablet a s needed Orally every 6 hrs Active Iron 28 MG 1 tablet Orally Thre e times a Week Active hydroCHLOROthiazide 12.5 MG 1 capsule in the morning Orally Once a day Active Potassium Chloride Lizzie ER 1 0 MEQ 1 tablet with food Orally Twice a day Active Aspir-Low 81 MG 1 tablet Orally Once a day Active ALPRAZolam 0.5 MG 1/2 tablet Orally 4 times a day Active Clobetasol Propionate 0.05 % 1 applicati on Externally Twice a day Active Xanax 0.25 MG 1 tablet Orally Thre e times a day Active Mesalamine 1000 MG 1 suppository at bedtime Rectal Once a day Active Social History Tobacco [...] ast year? No Points 0 Interpretation Negative Problems Problem Type SNOMED Code ICD Code Onset Dates Problem Status W/U Status Risk Notes Problem 8264242 Former smoker (Z87.891) Active confirmed She has been abstinent since 1998. She has a plan to prevent relapse in times of stress and illness. Problem Fibromyalgia (705737811) Fibromyalgia (M79.7) Active confirmed Her symptoms ar e stable and unchanged. Problem 689921768 Overweight (E66.3) Active confirmed This problem duron s resolved and will be removed from her problem list Problem 43665415 Allergy to sulfa drugs (Z88.2) Active confirmed Problem 015649667 GERD without esophagitis (K21.9) Active confirmed Her reflux symptoms are well controlled with kxtc-mfe-oqzcbkp medication. Problem 42323363 Essential hypertension (I10) Active confirmed Her blood pressure is 134/71. She is stable and no change in her regimen was needed. I recommended continued sodium restriction. Problem 99206652 Penicillin allergy (Z88.0) Active confirmed Problem 648562509496220 Hematochezia (K92.1) Active confirmed #4 days. She isn't visible streaks of red blood in her stool. She will be referred to her gastroenterologi st for colonoscopy. 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 Problem 07731925313358714 Adenocarcinoma of right lung (C34.91) Active confirmed There was no sign of her recurrent cervical new primary today. Problem 119420611 Renal cyst (N28.1) Active confirmed Diagnosis will be followed. 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 She has begun on anastrozole. She will have a radiation therapy consultation. Because of diffuse aches and pains. We have temporarily stopped anastrozole. Problem Psoriatic arthritis (224218704) Psoriatic arthritis (L40.50) Active confirmed She has mild arthritic changes in her fingers. No change in her therapy as needed. Vital Signs Heart Rate 94 /min 03/07/2024 Temperature 98.1 degrees Fahrenheit 03/07/2024 Blood pressure diastolic 71, 160 mm Hg 03/07/2024 Height 66 in 03/07/2024 Blood pressure systolic 134 mm Hg 03/07/2024 Weight 153 lbs 03/07/2024 BMI 24.69 kg/m2 03/07/2024 Encounters Encounter Location Date Provider Diagnosis George Dias III, MD [address] [place] [address] [place] [address] 09/03/2023 George Dias Ductal carcinoma in situ (DCIS) of right breast D05.11 ; Ductal carcinoma in situ (DCIS) of left breast D05.12 ; Overweight E66.3 ; Fibromyalgia M79.7 ; Hyperglycemia R73.9 ; GERD without esophagitis K21.9 ; Essential hypertension I10 ; Former smoker Z87.891 ; Psoriatic arthritis L40.50 and Adenocarcinoma of right lung C34.91 George Dias III, MD [address] [place] [address] [place] [address] 03/07/2024 George Dias Ductal carcinoma in situ (DCIS) of right breast D05.11 ; Ductal carcinoma in situ (DCIS) of left breast D05.12 ; Essential hypertension I10 ; GERD without esophagitis K21.9 ; Former smoker Z87.891 and Fibromyalgia M79.7 George Dias III, MD [address] [place] [address] [place] [address] 09/12/2023 George Dias Assessments Encounter Date Diagnosis (ICD Code) Assessment Notes Treat ment Notes Treatment Clinical Notes 09/03/2023 Ductal carcinoma in situ (DCIS) of left breast (ICD-10 - D05.12) This was detected in 1998 and treated then. I recurrent cancer in her breast is recently been detected.Her examination today was unremarkable 09/03/2023 Ductal carcinoma in situ (DCIS) of right breast (ICD-10 - D05.11) Her lumpectomy scar is well-healed and there are no new findings. 03/07/2024 Ductal carcinoma in situ (DCIS) of left breast (ICD-10 - D05.12) This was detected in 1998 and treated then. I recurrent cancer in her breast is recently been detected.Her examination today was unremarkable 03/07/2024 Ductal carcinoma in situ (DCIS) of right breast (ICD-10 - D05.11) Her lumpectomy scar is well-healed and there are no new findings. 09/03/2023 Overweight (ICD-10 - E66.3) This problem has resolved and will be removed from her problem list 03/07/2024 Essential hypertension (ICD-10 - I10) Her blood pressure is 134/71. She is stable and no change in her regimen was needed. I recommended continued sodium restriction. 09/03/2023 Fibromyalgia (ICD-10 - M79.7) Her symptoms are stable and unchanged. 03/07/2024 GERD without esophagitis (ICD-10 - K21.9) Her reflux symptoms are well controlled with jwqh-tit-tpbgbtz medication. 09/03/2023 Hyperglycemia (ICD-1 0 - R73.9) Her blood pressure is controlled and no change in her regiimen as needed. 03/07/2024 Former smoker (ICD-1 0 - Z87.891) She has been abstinent since 1998. She has a plan to prevent relapse in times of stress and illness. 09/03/2023 GERD without esophagitis (ICD-10 - K21.9) Her reflux symptoms are well controlled with ltro-vrp-bpwkcyv medication. 03/07/2024 Fibromyalgia (ICD-10 - M79.7) Her symptoms are stable and unchanged. 09/03/2023 Essential hypertension (ICD-10 - I10) Her [...] cervical new primary today. Plan Of Treatment Pending Test Test Name Order Date PROFILE, FASTING (COMPREHENSIVE METABOLI C) 02/17/2020 PROFILE, FASTING (COMPREHENSIVE METABOLI C) 09/03/2023 PROFILE, RANDOM (COMPREHENSIVE METABOLIC ) 01/20/2020 LIPID PANEL 02/17/2020 FERRITIN 02/17/2020 FERRITIN 01/20/2020 CEA 01/20/2020 MICROALBUMIN, RANDOM 09/03/2023 CBC w DIFF 02/17/2020 CBC w DIFF 01/20/2020 XR KNEE LT 2 VIEWS 08/09/2021 XR KNEE RT 2 VIEWS 08/09/2021 CBC WITH AUTO DIFF 09/03/2023 XR hand wrist LT 08/09/2021 XR hand wrist RT 08/09/2021 XR hip LT min 2V 08/09/2021 XR hip RT min 2V 08/09/2021 XR hand RT 2V 08/09/2021 XR foot RT 2V 08/09/2021 XR hand LT 2V 08/09/2021 XR foot LT 2V 08/09/2021 Hemoglobin A1c 09/03/2023 Next Appt Details Provider Name:George Dias, 09/09/2024 04:00:00 PM, [address] [place] [address] DR, [address], [place], [address], Insurance Providers Payer Name Payer Address Payer Phone Subscriber Number Group Number Insured Name Patient Relationship to Insured Coverage Start Date Coverage End Date [facility] [address] [facility] [address] [facility] [place] [phone] [id number] DAJA POWELL Self - patient is the insured Medical (General) History Medical History History ICD Code stage I adenocarcinoma right upper lobe 1998 1998 DCIS and LCIS left breast, lumpecto my, radiation, raloxifene, age 48 essential hypertension GERD ureterolithiasis family history of breast cancer, materna l cousin and mother 1998, hyperplastic rectal polyp abnormal stress test 2015 2019: 4.2 x 2.5 x 2.6 complex cyst media l right kidney former smoker since 1998 [id number] son [id number] invasive ductal carcinoma left breast April [id number] DCIS right breast, surgery and RT Breast Cancer in 2021, High Blood Pressu re, Ulcerated Colitis Surgical History Surgery Date(Month/Year) right upper lobectomy, stage I adenocarc inoma of, Dr. Scherer 1998 Lumpectomy and sentinel nodes left breas t 1998 2 major veins removed right leg 1 major vein removed- Dr. Lo 36 weeks radiation . Left breast 11/1998 Right breast lumpectomy with 2 needle lo calization (DP) 03/2019 multiple negative endometrial biopsies Lumpectomy and sentinel node biopsy left breast, [facility], Dr. Mixon 04/2021 Breast cancer surgery in 2021 2021
--- OUTSIDE RECORDS SUMMARY | 2024-06-09 19:19 | XMS_ITS ---
Author Organization George Dias III, MD Address [address] [place] [place] [address] Care Team Providers Care Coater Operator Insulation Board Name Role Phone Joseph Valencia MD Primary Care Provider George Ren Unavailable [phone] Allergies Allergen (clinical drug ingredient) Drug/Non Drug [...] Date Provider Diagnosis George Dias III, MD [address] [place] [address] [place] [address] 03/07/2024 George Dias Ductal carcinoma in situ [...] Her reflux symptoms are well controlled with fhzn-ptf-dsjbzux medication. 03/07/2024 Former smoker (ICD-10 - Z87.891) [...] patient's adjuvant endocrine therapy for breast cancer. Provider Name:George Dias, 09/09/2024 04:00:00 PM, [address] [place] [address] [address] [place] [place] [address], [place], [address], Progress Notes * DAJA PEACE PDOB: (74 yo F)Acc No.[id number]:03/07/2024 Progress Notes Patient:?MARLIN PEACE P Provider:?George Dias MD :1950???Age:74 Y???Sex:Female D ate:03/07/2024 Address:[address] [place], [place] [address] , [phone] Pcp:Joseph Valencia MD Subjective: * Chief Complaints: * ???History of adenocarcinoma of the right lung in remission 07/01/1998History of invasive carcinoma of left breastDCIS of the right breastHypertensionFibromyalgia * HPI: ???COVID-19 Screening:?Questions?Have you experienced fever, chills, cough, sore throat, shortness of breath, difficulty breathing, muscle aches, loss of taste or smell??No ?Have you been exposed to the virus within the last 10 days??No ?Have you travelled internationally in the last 10 days??No ?Have you been exposed to COVID-19 in the past??Yes ???:? The 74-year-old female patient came in for [...] trying to get in touch with her air brush artist, Dr. Zee, to discuss her heart condition and whether she can continue taking the mesalamine tablets. She also mentioned that she has been experiencing weakness in her legs. * ROS:?General/Constitutional:?pain?only normal aches and pains.?Chills?denies.?Fatigue?admits.?Fever?denies.?ENT:?Decreased hearing?, mild.?Respiratory:?Cough?denies.?Cardiovascular:?Chest pain with exertion?denies.?Dyspnea on exertion?denies.?Shortness of breath?denies.?Gastrointestinal:?Constipation?occasional.?Decreased appetite?denies.?Diarrhea?denies.?Heartburn?denies.?Nausea?denies.?Rectal bleeding?denies.?Vomiting?denies.?Hematology:?bruising?denies.?petechiae?denies.?Swollen glands?none have been noted.?Genitourinary:?Frequent urination?at night.?Musculoskeletal:?Muscle aches?denies.?Painful joints?Arthritis hand shoulders and hips.?Sciatica?denies.?Weakness?denies.?Skin:?Itching?denies.?Rash?denies.?Skin lesion(s)?denies.?Neurologic:?Difficulty speaking?denies.?Dizziness?denies.?Headache?denies.?Low back pain?denies.?Psychiatric:?Depressed mood?denies.? * Medical History:? * Surgical History:?right uppe r lobectomy, stage I adenocarcinoma of, Dr. Scherer 1998Lumpectomy and sentinel nodes left breast major veins removed right leg 1 major vein removed- Dr. Lo 36 weeks radiation . Left breast 11/1998Right breast lumpectomy with 2 needle localization (DP) 03/2019multiple negative endometrial biopsies Lumpectomy and sentinel node biopsy left breast, [facility], Dr. Mixon 1Breast cancer surgery in 2021 2021 * Hospitalization/Major Diagno stic Procedure:?Denies Past Hospitalization * Family History:?Father: dece ased 68 yrs, COPD, hypertension, CVD, diagnosed with HTN, CVD.?Mother: , diagnosed with Cancer, CVD.?Siblings: unknown.?Maternal Grand [...] retired and no longer smokes cigarettes. * Medications:?TakingXanax 0.2 5 MG Tablet 1 tablet Orally Three times [...] stomach upsetno[Allergies Verified] Objective: * Vitals:?Ht: 66, Wt:153, BMI: 24.69, BP: 134/71,160/80, HR:94, Temp:98.1, Wt-k.4. * Examination: ???General Examination: ?GENERAL APPEARANCE:?pleasant, well nourished, well developed, in no acute distress, calm and relaxed, elderly woman.?HEAD:?atraumatic, normocephalic.?EYES:?eomi, perrla, anicteric, conjugate.?EARS:?normal.?NOSE:?septum intact.?ORAL CAVITY:?normal, unremarkable.?NECK/THYROID:?no jugular venous distention, no carotid bruit, thyroid normal.?LYMPH NODES:?no enlarged lymph nodes,spleen normal.?SKIN:?no suspicious lesions, anicteric.?HEART:?no clicks, gallops, murmurs, or rubs, regular rhythm, S1, S2 normal, no s3, or vascular bruits.?LUNGS:?clear to auscultation, good air movement, no wheezes, rales, rhonchi.?BREASTS:??no masses palpable bilaterally,All scars healed.?ABDOMEN:?bowel sounds normal, no ascites, no organomegaly, no mass.?RECTAL EXAM:?not examined.?MUSCULOSKELETAL:?extremities unremarkable, no clubbing, cyanosis or edema.?PERIPHERAL PULSES:?normal.?NEUROLOGIC:?alert and oriented, cranial nerves 2-12 grossly intact, deep tendon reflexes 2+ symmetrical, motor strength normal upper and lower extremities, sensory exam intact.?PSYCH:?alert, oriented.? Assessment: * Assessment: 1.?Ductal carcinoma in situ (DCIS) of right breast - D05.11 (Primary)???Notes :Her lumpectomy scar is well-healed and there are no new findings.???2.?Ductal carcinoma in situ (DCIS) of left breast - D05.12???Notes :This was detected in 1998 and treated then. I recurrent cancer in her breast is recently been detected.Her examination today was unremarkable???3.?Essential hypertension - I10???Notes :Her blood pressure is 134/71. She is stable and no change in her regimen was needed. I recommended continued sodium restriction.???4.?GERD without esophagitis - K21.9???Notes :Her reflux symptoms are well controlled with dfaa-kho-wnfqads medication.???5.?Former smoker - Z87.891???Notes :She has been abstinent since 1998. She has a plan to prevent relapse in times of stress and illness.???6.?Fibromyalgia - M79.7???Notes :Her symptoms are stable and unchanged.??? Plan: * Treatment: 2.?Others? Continue Furosemide Tablet, 20 MG, TAKE 1 TABLET BY MOUTH EVERY DAY FOR 30 DAYS;?Continue Letrozole Tablet, 2.5 MG, TAKE 1 TABLET BY MOUTH EVERY DAY FOR 30 DAYS.?? * Procedure Codes:? * Preventive Medicine:? ??Counseling:?Smoking/Tobacco Use?Patient counseled on the dangers of tobacco use and urged to quit.?03/07/2024 * Follow Up:?6 Months, In six months (Reason: OV, To review the patient's adjuvant endocrine therapy for breast cancer.) * Images: * Sign off status: Completed true * Provider:?George Dias MD Date:?02/12 Generated for Andrei sabrina/Rozina/eTransmitting on:?06/09/2024 06:23 PM EST History and Physical Notes * HPI (History of Present Illness) Category Sub-Category Detail Notes COVID-19 Screening Questions Have you had any new onset fever, chills, cough, congestion, sore throat, shortness of breath, muscle aches?: No Have you been exposed to the virus withi n the last 10 days?: No Have you travelled internationally in [facility] last 10 days?: No Have you been [...]
--- OUTSIDE RECORDS SUMMARY | 2024-06-09 19:19 | XMS_ITS | Encounter Summary ---
Author Organization [facility] Address [address] [place] [address] Phone Care Team Providers Care Pharmacy District Manager Name Role Phone Joseph Valencia MD Primary Care Provider [phone] Encounter Details Date Type Department Care Team (Late Contact Info) Description 04/17/2024 Office Communication [facility] [address] [place] [phone] Escobar Lundberg [address] [facility] [address] [place] [phone] Social History Tobacco Use Types Packs/Day Years Used Date Smoking Tobacco: Never Alcohol Use Standard Drinks/Week Comments Never 0 (1 standard drink = 0.6 oz pur e alcohol) Comments Unknown Sex and Gender Information Value Date Recorded Sex Assigned at Not on file Legal Sex Female 10:32 AM EDT Gender Identity Not on file Sexual Orientation Not on file documented as of this encounter Miscellaneous Notes * Telephone Encounter - Escobar Lundberg - 04/17/2024 11:55 AM EST Pt would like a call to discuss recent labs done (pt has covid) also needs clarification on potasium meds and needs refill on aMILoride (MIDAMOR) 5 MG tablet pls call [phone] documented in this encounter Plan of Treatment Upcoming Encounters Date Type Department Care Team (Late Contact Info) Description 06/19/2024 4:15 PM EST Office Visit [facility] [address] [place] [address] Carlos Manuel Wagoner MD [address] [address] 08/11/2024 3:15 PM EDT Office Visit [facility] [address] [place] [address] Carlos Manuel Wagoner MD [address] [address] documented as of this encounter Visit Diagnoses Not on filedocumented in this encounter Care Teams Pharmacy District Manager Relationship Specialty Start Date End Date Joseph Valencia MD [address] [place] [address] [address] LYSSA QUEZADA PCP - General Internal Medicine 08/02/23 documented as of this encounter
--- OUTSIDE RECORDS SUMMARY | 2024-06-09 19:19 | XMS_ITS | Clinical Summary ---
Author Organization [facility] Address [address] [facility] [address] [place] [address] Phone Care Team Providers Care Small Products I Assembler Name Role Phone Joseph Valencia MD Primary Care Provider [phone] Allergies Active Allergy Reactions Criticality Noted Date Comments Codeine GI intolerance 10/29/2023 Nausea Ipratropium Other (see comments) 04/25/2019 Penicillins Other (see comments) 04/25/2019 Sulfacetamide Other (see comments) 05/29/2023 Sulfate Other (see comments) 04/25/2019 Medications albuterol 1.25 MG/3ML nebulizer solution INHALE CONTENTS OF 1 AMP VIA NEBULIZER EVERY 4-6 HOURS NEEDED FOR WHEEZING OR SHORTNESS OF BREATH 3 Active ALPRAZolam (XANAX) 0.5 MG tablet TAKE 1/2 TABLET BY MOUTH 3 TIMES A DAY NEEDED 3 Active letrozole (FEMARA) 2.5 MG chemo tablet 3 Active omeprazole (PriLOSEC) [address] capsule Take 20 mg by mouth 3 Active furosemide (LASIX) 20 MG tablet Take 40 mg by mouth 1 (one) time each day For 30 days Note : Pt is taken 40 mg in the morning 3 Active aspirin (ST JASNO) 81 MG EC tablet Take 81 mg by mouth in the morning. Active carvedilol (Coreg) 12.5 MG tablet Take 1 tablet (12.5 mg total) by mouth in the morning and 1 tablet (12.5 mg total) in the evening. Take with meals. 180 tablet 3 4 07/27/19 25 Active doxycycline (VIBRA-TABS) 100 MG tablet 4 Active carvedilol (COREG) 3.125 MG tablet Take 2 tablets (6.25 mg total) by mouth in the morning and 2 tablets (6.25 mg total) in the evening. Take with meals. 360 tablet 1 4 02/14/20 25 Active mesalamine (CANASA) 1000 MG suppository UNWRAP AND INSERT 1 SUPPOSITORY AT BEDTIME RECTALLY EVERY NIGHT FOR 30 DAY(S) 4 Active aMILoride (MIDAMOR) 5 MG tablet Take 1 tablet (5 mg total) by mouth 1 (one) time each day 90 tablet 4 07/17/19 25 Active potassium chloride (MICRO-K) 10 MEQ CR capsule TAKE 2 CAPSULES (20 MEQ TOTAL) BY MOUTH 1 (ONE) TIME EACH DAY PT TAKEN IT 2 TIMES A DAY 180 capsule 4 08/02/19 25 Active Active Problems Problem Noted Date Diagnosed Date Essential (primary) hypertension 10/29/2023 Personal history of kidney stones 10/29/2023 Other secondary hypertension 08/02/2023 Encounters Date Type Department Care Team Description 05/02/2024 Refill [facility] [address] [place] [address] Carlos Manuel Wagoner MD 05/02/2024 Refill [facility] [address] [place] [address] Carlos Manuel Wagoner MD 04/17/2024 Office Communication [facility] [address] [facility] [address] [place] [phone] Escobar Lundberg 04/03/2024 Orders Only [facility] [address] [facility] [address] [place] [address] Carlos Manuel Wagoner MD Hypertensive heart and chronic kidney disease without heart failure, with stage 1 through stage 4 chronic kidney disease, or unspecified chronic kidney disease 03/20/2024 Refill [facility] [address] [place] [phone] Carlos Manuel Wagoner MD 03/11/2024 Office Communication [facility] [address] [address] Carlos Manuel Wagoner MD Hypertensive heart and chronic kidney disease without heart failure, with stage 1 through stage 4 chronic kidney disease, or unspecified chronic kidney disease (Primary Dx) 03/10/2024 4:00 PM EDT Office Visit [facility] [address] [place] [address] Carlos Manuel Wagoner MD Essential (primary) hypertension (Primary Dx) from Last 3 Months Immunizations Name Administration Dates Next Due Influenza Whole 03/06/2011 Influenza, Unspecified 02/26/2015 Pneumococcal Conjugate 13-Valent 12/07/2014 Pneumococcal Polysaccharide 12/05/2006 Td, Unspecified 10/12/2002 Tdap 10/12/2014,12/02/2012 Social History Tobacco Use Types Packs/Day Years Used Date Smoking Tobacco: Never Tobacco Cessation:Counseling Given: Not Answered Alcohol Use Standard Drinks/Week Comments Never 0 (1 standard drink = 0.6 oz pur e alcohol) Comments Unknown Sex and Gender Information Value Date Recorded Sex Assigned at Not on file Legal Sex Female 10:32 AM EDT Gender Identity Not on file Sexual Orientation Not on file Last Filed Vital Signs Vital Sign Reading Time Taken Comments Blood Pressure 160/70 03/10/2024 4:13 PM EDT Pulse 65 03/10/2024 4:13 PM EDT Temperature - - Respiratory Rate - - Oxygen Saturation 94% 03/10/2024 4:13 PM EDT Inhaled Oxygen Concentration - - Weight 70.1 kg (154 lb 9.6 oz) 03/10/2024 4:13 P M EDT Height - - Body Mass Index - - Plan of Treatment Upcoming Encounters Date Type Department Care Team (Late st Contact Info) Description 06/19/2024 4:15 PM EST Office Visit [facility] [address] [place] [address] Carlos Manuel Wagoner MD [address] [address] 08/11/2024 3:15 PM EDT Office Visit [facility] [address] [place], [place] [address] Carlos Manuel Wagoner MD [address] [facility] [address] [place] [address] Health Maintenance Due Date Last Done Comments Breast Cancer Screening 1950 Colorectal Cancer Screening: Annual FOBT 1998 Colorectal Cancer Screening: Colonoscopy 1998 Colorectal Cancer Screening: Sigmoidoscopy 1998 Pneumococcal Vaccine: 65+ Years (3 of 3 - PPSV23 or PCV20) 02/01/2015 12/07/2014, 12/05/2006 Influenza Vaccine (#1) 2024 5, 03/06/2011 Hepatitis B Vaccine Aged Out No longe r eligible based on patient's age to complete this topic Procedures Procedure Name Priority Date/Time Associated Diagnosis Comments MAGNESIUM Routine 04/03/2024 4:13 PM EST Hypertensive heart and chronic kidney disease without heart failure, with stage 1 through stage 4 chronic kidney disease, or unspecified chronic kidney disease CBC Routine 04/03/2024 4:13 PM EST Hypertensive heart and chronic kidney disease without heart failure, with stage 1 through stage 4 chronic kidney disease, or unspecified chronic kidney disease VITAMIN D 25 HYDROXY Routine 04/03/2024 4:13 PM EST Hypertensive heart and chronic kidney disease without heart failure, with stage 1 through stage 4 chronic kidney disease, or unspecified chronic kidney disease PROTEIN / CREATININE RATIO, URINE Routine 04/03/2024 4:13 PM EST Hypertensive heart and chronic kidney disease without heart failure, with stage 1 through stage 4 chronic kidney disease, or unspecified chronic kidney disease URINE ALBUMIN / CREATININE RATIO Routine 04/03/2024 4:13 PM EST Hypertensive heart and chronic kidney disease without heart failure, with stage 1 through stage 4 chronic kidney disease, or unspecified chronic kidney disease URINALYSIS WITH MICROSCOPIC Routine 04/03/2024 4:13 PM EST Hypertensive heart and chronic kidney disease without heart failure, with stage 1 through stage 4 chronic kidney disease, or unspecified chronic kidney disease RENAL FUNCTION PANEL Routine 04/03/2024 4:13 PM EST Hypertensive heart and chronic kidney disease without heart failure, with stage 1 through stage 4 chronic kidney disease, or unspecified chronic kidney disease PTH, INTACT Routine 04/03/2024 4:13 PM EST Hypertensive heart and chronic kidney disease without heart failure, with stage 1 through stage 4 chronic kidney disease, or unspecified chronic kidney disease MICROSCOPIC EXAMINATION - DO NOT USE Routine 04/03/2024 4:13 PM EST from Last 3 Months Results * Microscopic Examination (04/03/2024 4:13 PM EST) WBC, Urine 0-5 0 - 5 /hpf [facility] RBC, Urine None seen 0 - 2 /hpf [facility] Squamous Epithelial, Urine None seen 0 - 10 /hpf [facility] Casts None seen None seen /lpf [facility] Bacteria, Urine None seen None seen/Few [facility] 04/03/2024 4:13 PM EST 04/03/2024 us Carlos Manuel Wagoner MD LAB MICROBIOLOGY - GENERAL OR DERABLES Final Result [facility] [address] [place] [address] * Protein, Total, Random Urine w/Creatinine (Protein/Creat Ratio) (04/03/2024 4:13 PM EST) Creatinine, Ur 36.2 Not Estab. mg/dL [facility] Protein, Ur 4.0 Not Estab. mg/dL [facility] Urine Protein/Creatin ine Ratio 110 0 - 200 mg/g creat [facility] Urine (Urine, Clean Catch) 04/03/2024 4:13 PM EST 04/03/2024 Carlos Manuel Wagoner MD LAB URINE ORDERABLES Final Re sult Performing Organization Address City/[facility] Co de Phone Number [facility] [address] [place] [address] * (ABNORMAL) Urine Albumin / Creatinine Ratio (04/03/2024 4:13 PM EST) Pathologist [facility] Urine Microalbumin 13.0 Not Estab. ug/mL [facility] Microalbumin/Crea tinine Ratio 36(H) 0 - 29 mg/g creat [facility] Comment: ? Normal: ?0 - ??29 ? Moderately increased: 30 - 300 ? Severely increased: ? >300 Urine (Urine, Clean Catch) 04/03/2024 4:13 PM EST 04/03/2024 Carlos Manuel Wagoner MD LAB URINE ORDERABLES Final Re sult Performing Organization Address City/[facility] Co de Phone Number [facility] [address] [place] [address] * Vitamin D 25 Hydroxy (04/03/2024 4:13 PM EST) Vitamin D, 25-OH, Total 33.5 30.0 - 100.0 ng/mL [facility] Comment: Vitamin D deficiency has been defined by the [place] of Medicine and an Endocrine Society practice guideline as a level of serum 25-OH vitamin D less than 20 ng/mL (1,2). The Endocrine Society went on to further define vitamin D insufficiency as a level between 21 and 29 ng/mL (2). 1. IOM ([place] of Medicine). 2010. Dietary reference ?? intakes for calcium and D. [place]aya [place]: The ?? [employer]. 2. Zaria MF, Xander BROWER, Tanika AGUILAR, et al. ?? Evaluation, treatment, and prevention of vitamin D ?? deficiency: an Endocrine Society clinical practice ?? guideline. JCEM. 2010; 96(7):1911-30. Blood (Blood, Venous) 04/03/2024 4:13 PM EST 04/03/2024 us Carlos Manuel Wagoner MD LAB BLOOD ORDERABLES Final Re sult [facility] [address] [place] [address] * (ABNORMAL) Urinalysis with microscopic (04/03/2024 4:13 PM EST) Pathologist [facility] Specific [place], Urine 1.011 1.005 - 1.030 [facility] [phone] pH Urine 6.0 5.0 - 7.5 [facility] Color, Urine Yellow Yellow [facility] Appearance Urine Clear Clear [facility] WBC Esterase Urine Trace(A) Negative [facility] Protein, Ur Negative Negative/Tra ce [facility] Glucose, Ur Negative Negative [facility] Ketones, Urine Negative Negative [facility] Blood Urine Negative Negative [facility] [phone] Bilirubin Urine Negative Negative [facility] Urobilinogen Urine 0.2 0.2 - 1.0 mg/dL [facility] Nitrite, Urine Negative Negative [facility] Microscopic Examination See below: [facility] Comment:Microscopic was lisa cated and was performed. Urine (Urine, Clean Catch) 04/03/2024 4:13 PM EST 04/03/2024 us Carlos Manuel Wagoner MD LAB URINE ORDERABLES Final Re sult [facility] [address] [place] [address] * CBC (04/03/2024 4:13 PM EST) WBC 9.2 3.4 - 10.8 x10E3/uL [facility] Comment: Effective April 14, 2024 profile [id number] WBC will be made ??non-orderable as a stand-alone order code. RBC 4.19 3.77 - 5.28 x10E6/uL [facility] Hemoglobin 13.2 11.1 - 15.9 g/dL [facility] Hematocrit 40.1 34.0 - 46.6 % [facility] MCV 96 79 - 97 fL [facility] MCH 31.5 26.6 - 33.0 pg [facility] MCHC 32.9 31.5 - 35.7 g/dL [facility] RDW 12.8 11.7 - 15.4 % [facility] Platelets 266 150 - 450 x10E3/uL [facility] Blood (Blood, Venous) 04/03/2024 4:13 PM EST 04/03/2024 Carlos Manuel Wagoner MD LAB BLOOD ORDERABLES Final Re sult Performing Organization Address City/[facility]/ZIP Co de Phone Number [facility] [address] [place] [address] * PTH, Intact (04/03/2024 4:13 PM EST) PTH 30 15 - 65 pg/mL [facility] Blood (Blood, Venous) 04/03/2024 4:13 PM EST 04/03/2024 Carlos Manuel Wagoner MD LAB BLOOD ORDERABLES Final Re sult Performing Organization Address [facility] Co de Phone Number [facility] [address] [place] [address] * Magnesium (04/03/2024 4:13 PM EST) Magnesium 2.2 1.6 - 2.3 mg/dL [facility] Blood (Blood, Venous) 04/03/2024 4:13 PM EST 04/03/2024 Carlos Manuel Wagoner MD LAB BLOOD ORDERABLES Final Re sult Performing Organization Address City/[facility]/ZIP Co de Phone Number [facility] [address] [place] [address] * Renal Function Panel (04/03/2024 4:13 PM EST) Glucose 87 70 - 99 mg/dL [facility] BUN 13 8 - 27 mg/dL [facility] Creatinine 0.62 0.57 - 1.00 mg/dL [facility] eGFR CKD-EPI CR 2020 93 >59 mL/min/1.7 3 [facility] BUN/Creatinine Ratio 21 12 - 28 [facility] Sodium 143 134 - 144 mmol/L [facility] Potassium 4.5 3.5 - 5.2 mmol/L [facility] Chloride 106 96 - 106 mmol/L [facility] Bicarbonate (CO2) 21 20 - 29 mmol/L [facility] Calcium 9.1 8.7 - 10.3 mg/dL [facility] Phosphorus 3.4 3.0 - 4.3 mg/dL [facility] Albumin 4.2 3.8 - 4.8 g/dL [facility] Blood (Blood, Venous) 04/03/2024 4:13 PM EST 04/03/2024 Carlos Manuel Wagoner MD LAB BLOOD ORDERABLES Final Re sult [facility] [address] [place] [address] from Last 3 Months Insurance [facility] Care Teams Small Products I Assembler Relationship Specialty Start Date End Date Joseph Valencia MD [address] [place] [address] DR[address] [place], [place] PCP - General Internal Medicine 08/02/23
--- OUTSIDE RECORDS SUMMARY | 2024-06-09 19:20 | XMS_ITS ---
Author Organization [facility] Address [address] [place] [address] Care Team Providers Care Sash Installer Name Role Phone Joseph Valencia MD Primary Care Provider UnavailGeorge Ferguson Unavailable [phone] George Dias MD Unavailable REASON FOR VISIT mesalamine Encounters Encounter Location Date Provider Diagnosis [facility] [address] [facility] [address] [place] [address] 04/02/2024 George Nguyen PLAN OF TREATMENT Next Appt Details Provider Name:George Nguyen , 06/11/2024 04:00:00 PM, [address] [facility], [address], [place], [address],
--- OUTSIDE RECORDS SUMMARY | 2024-06-09 19:20 | XMS_ITS ---
Author Organization [facility] Address [address] [place] [address] Care Team Providers Care Mail Room Clerk Name Role Phone Joseph Valencia MD Primary Care Provider UnavailGeorge Ferguson Unavailable [phone] George Dias MD Unavailable REASON FOR VISIT REACTION WITH MESALAMINE Encounters Encounter Location Date Provider Diagnosis [facility] [address] [facility] [address] [place] [address] 02/11/2024 George Nguyen PLAN OF TREATMENT Next Appt Details Provider Name:George Nguyen , 06/11/2024 04:00:00 PM, [address] [facility], [address], [place], [address],
--- OUTSIDE RECORDS SUMMARY | 2024-06-09 19:20 | XMS_ITS | Encounter Summary ---
Author Organization [facility] Address [address] [address] Phone Care Team Providers Care Manager Assembly Name Role Phone Joseph Valencia MD Primary Care Provider [phone] Encounter Details Date Type Department Care Team (Latest Contact Info) Description 03/11/2024 Office Communication [facility] [address] [address] Carlos Manuel Wagoner MD [address] [address] Hypertensive heart and chronic kidney disease without heart failure, with stage 1 through stage 4 chronic kidney disease, or unspecified chronic kidney disease (Primary Dx) Social History Tobacco Use Types Packs/Day Years [...] encounter Miscellaneous Notes * Telephone Encounter - Carlos Manuel Wagoner MD - 03/11/2024 12:37 AM EDT Need to get repeat labs Need to get updated list of what meds she is actually taking thx documented in this encounter Plan of Treatment Upcoming Encounters Date Type Department Care Team (Late st Contact Info) Description 06/19/2024 4:15 PM EST Office Visit [facility] the [address] [place] [address] Carlos Manuel Wagoner MD [address] [address] 08/11/2024 3:15 PM EDT Office Visit [facility] [address] [place] [address] Carlos Manuel Wagoner MD [address] [address] Scheduled Orders Name Type Priority Associated Diagnoses Orde r Schedule Phosphorus Lab Routine Hypertensive heart and chronic kidney disease without heart failure, with stage 1 through stage 4 chronic kidney disease, or unspecified chronic kidney disease Expected: 04/03/2024, Expires: 05/02/2025 Albumin Lab Routine Hypertensive heart and chronic kidney disease without heart failure, with stage 1 through stage 4 chronic kidney disease, or unspecified chronic kidney disease Expected: 04/03/2024, Expires: 05/02/2025 Calcium Lab Routine Hypertensive heart and chronic kidney disease without heart failure, with stage 1 through stage 4 chronic kidney disease, or unspecified chronic kidney disease Expected: 04/03/2024, Expires: 05/02/2025 documented as of this encounter Results * Magnesium (04/03/2024 4:13 PM EST) Magnesium 2.2 1.6 - 2.3 mg/dL [facility] Blood (Blood, Venous) 04/03/2024 4:13 PM EST 04/03/2024 us Carlos Manuel Wagoner MD LAB BLOOD ORDERABLES Final Re sult [facility] [address] [place] [address] * CBC (04/03/2024 4:13 PM EST) WBC 9.2 3.4 - 10.8 x10E3/uL [facility] Comment: Effective April 14, 2024 profile [id number] WBC will be made ??non-orderable as a stand-alone order code. RBC 4.19 3.77 - 5.28 x10E6/uL [facility] Hemoglobin 13.2 11.1 - 15.9 g/dL [facility] Hematocrit 40.1 34.0 - 46.6 % [facility] MCV 96 79 - 97 fL [facility] MCH 31.5 26.6 - 33.0 pg [facility] MCHC 32.9 31.5 - 35.7 g/dL [facility] RDW 12.8 11.7 - 15.4 % [facility] Platelets 266 150 - 450 x10E3/uL [facility] Blood (Blood, Venous) 04/03/2024 4:13 PM EST 04/03/2024 us Carlos Manuel Wagoner MD LAB BLOOD ORDERABLES Final Re sult [facility] [address] [place] [address] * Vitamin D 25 Hydroxy (04/03/2024 4:13 PM EST) Vitamin D, 25-OH, Total 33.5 30.0 - 100.0 ng/mL [facility] Comment: Vitamin D deficiency has been defined by the [place] of Medicine and an Endocrine Society practice guideline as a level of serum 25-OH vitamin D less than 20 ng/mL (1,2). The Endocrine Society went on to further define vitamin D insufficiency as a level between 21 and 29 ng/mL (2). 1. IOM ([place] of [employer]). 2010. Dietary reference ?? intakes for calcium and D. [place]: The ?? National Academies Press. 2. Zaria MF, Xander BROWER, Tanika AGUILAR, et al. ?? Evaluation, treatment, and prevention of vitamin D ?? deficiency: an Endocrine Society clinical practice ?? guideline. JCEM. 2010; 96(7):1911-30. Blood (Blood, Venous) 04/03/2024 4:13 PM EST 04/03/2024 Carlos Manuel Wagoner MD LAB BLOOD ORDERABLES Final Re sult Performing Organization Address City/[facility]/ZIP Co de Phone Number [facility] [address] [place] [address] * Protein, Total, Random Urine w/Creatinine (Protein/Creat Ratio) (04/03/2024 4:13 PM EST) Creatinine, Ur 36.2 Not Estab. mg/dL [facility] Protein, Ur 4.0 Not Estab. mg/dL [facility] Urine Protein/Creatin ine Ratio 110 0 - 200 mg/g creat [facility] Urine (Urine, Clean Catch) 04/03/2024 4:13 PM EST 04/03/2024 Carlos Manuel Wagoner MD LAB URINE ORDERABLES Final Re sult Performing Organization Address City/[facility]/ZIP Co de Phone Number [facility] [address] [place] [address] * (ABNORMAL) Urine Albumin / Creatinine Ratio (04/03/2024 4:13 PM EST) Urine Microalbumin 13.0 Not Estab. ug/mL [facility] Microalbumin/Crea tinine Ratio 36(H) 0 - 29 mg/g creat [facility] Comment: ? Normal: ?0 - ??29 ? Moderately increased: 30 - 300 ? Severely increased: ? >300 Urine (Urine, Clean Catch) 04/03/2024 4:13 PM EST 04/03/2024 us Carlos Manuel Wagoner MD LAB URINE ORDERABLES Final Re sult [facility] [address] [place] [address] * (ABNORMAL) Urinalysis with microscopic (04/03/2024 4:13 PM EST) Specific [place], Urine 1.011 1.005 - 1.030 [facility] [phone] pH Urine 6.0 5.0 - 7.5 [facility] Color, Urine Yellow Yellow [facility] Appearance Urine Clear Clear [facility] WBC Esterase Urine Trace(A) Negative [facility] Protein, Ur Negative Negative/Tra ce [facility] Glucose, Ur Negative Negative [facility] Ketones, Urine Negative Negative [facility] Blood Urine Negative Negative [facility] Bilirubin Urine Negative Negative [facility] Urobilinogen Urine 0.2 0.2 - 1.0 mg/dL [facility] Nitrite, Urine Negative Negative [facility] Microscopic Examination See below: [facility] Comment:Microscopic was lisa cated and was performed. Urine (Urine, Clean Catch) 04/03/2024 4:13 PM EST 04/03/2024 us Carlos Manuel Wagoner MD LAB URINE ORDERABLES Final Re sult [facility] [address] [place] [address] * Renal Function Panel (04/03/2024 4:13 PM EST) Glucose 87 70 - 99 mg/dL [facility] BUN 13 8 - 27 mg/dL [facility] Creatinine 0.62 0.57 - 1.00 mg/dL [facility] eGFR CKD-EPI CR 2020 93 >59 mL/min/1.7 3 [facility] BUN/Creatinine Ratio 21 12 - 28 [facility] Sodium 143 134 - 144 mmol/L [facility] Potassium 4.5 3.5 - 5.2 mmol/L [facility] Chloride 106 96 - 106 mmol/L [facility] Bicarbonate (CO2) 21 20 - 29 mmol/L [facility] Calcium 9.1 8.7 - 10.3 mg/dL [facility] Phosphorus 3.4 3.0 - 4.3 mg/dL [facility] Albumin 4.2 3.8 - 4.8 g/dL [facility] Blood (Blood, Venous) 04/03/2024 4:13 PM EST 04/03/2024 Carlos Manuel Wagoner MD LAB BLOOD ORDERABLES Final Re sult [facility] [address] [place] [address] * PTH, Intact (04/03/2024 4:13 PM EST) PTH 30 15 - 65 pg/mL [facility] Blood (Blood, Venous) 04/03/2024 4:13 PM EST 04/03/2024 Carlos Manuel Wagoner MD LAB BLOOD ORDERABLES Final Re sult Performing Organization Address City/[facility] Co de Phone Number [facility] [address] [place] [address] documented in this encounter Visit Diagnoses Diagnosis Hypertensive heart and chronic kidney disease without heart failure, with stage 1 through stage 4 chronic kidney disease, or unspecified chronic kidney disease- Primary documented in this encounter Care Teams Manager Assembly Relationship Specialty Start Date End Date Joseph Valencia MD [address] [place] PCP - General Internal Medicine 08/02/23 documented as of this encounter
--- OUTSIDE RECORDS SUMMARY | 2024-06-09 19:20 | XMS_ITS | Continuity of Care Document ---
Author Organization [facility] Address [address] [place] [address] Phone Care Team Providers Care Nuclear Fuel Processing Technician Name Role Phone Yasmany KEY, GARDENIA, George [...] Telemedicine [place] & [place] [facility], [address] [place] [address] [address], [place] Alfred[place], [id number], [place] tel:[phone] R - [place] Varicose veins of bilateral lower extremities with other complicationsL ocalized edemaCramp and spasmPruritus, unspecifiedEss ential (primary) hypertension 4 Yasmany KEY, GARDENIA, CROW Vazquez. [address], [address], [facility], [id number] , [place]. tel:[phone] Offic Cons New/estab Mod-hi 60- [place] & [place] [facility], [address] [place] [address] [address], [place] Alfredo, [id number], tel:[phone] CVR - [place] Essential (primary) hypertensionPr uritus, unspecifiedPai n in left legCramp and spasmLocalized edemaVaricose veins of bilateral lower extremities with other complicationsP ain in right lower legPain in left lower legPain in right leg 4 Yasmany KEY RVT, CROW Vazquez. [address] [place] [address], [facility] willis[facility], [place], [id number] , [place]. tel:[phone] [facility], [address] [place] [address] Dr Sellers [address] [address]Alfredo [place], [id number], tel:[phone] CVR - [facility] Varicose veins of bilateral lower extremities with pain 4 Yasmany KEY RVT, CROW Vazquez. [address] [place] [address], Lalit [place]is [place], [id number] , [place]. tel:[phone] Referring Provider: George Jade MD, RVT, CROW, [address] [place] [address], [place], [address] . tel:[phone] Family History Family Member Type Diagnosis Age At Onset No Information Payers Payer name Insurance type Covered green party ID Grayson jacome(s) [employer] [place] [employer] CI [id number] Social History Type Description Quantity Date Captured [...]
== END ==
LOC: HO.CARD 15:11
PROVIDERS: PCP Internal Medicine; Visit Provider Nurse Practitioner Family
DX: R07.89 Other chest pain (principal); I35.0 Nonrheumatic aortic (valve) stenosis; I34.0 Nonrheumatic mitral (valve) insufficiency
CPT/HCPCS: 93306

== ENCOUNTER 2024-07-01 12:57 | Outpatient (REF) | payer MEDICARE, SELFPAY ==
--- NOTE | ~2024-07-01 | US_ITS ---
CLINICAL HISTORY: N20.0 - Calculus of kidney US Renal Comparison: None Findings: Right kidney 10.7 cm with for and 6 mm nonobstructing midpole stones. Marked dilatation of the right renal pelvis the proximal ureter suggesting a ureteropelvic junction stenosis with 6 x 13 x 9 mm stone. Left kidney at 11.1 cm. 7 mm lower pole stone. No hydronephrosis. Impression: Findings suggesting right ureteropelvic junction stenosis with large stone as above. Additional bilateral intrarenal stones. Suggest further correlation with CT urography. This document has been electronically signed by: Red Morales MD on 07/03/2024 10:33:50
--- OUTSIDE RECORDS SUMMARY | 2024-07-01 13:50 | XMS_ITS | Patient Health Record ---
Author Organization George Dias III, MD Address [address] [address] Care Team Providers Care Oracle Data Warehouse Developer Name Role Phone Joseph Valencia MD Primary Care Provider George Ren Unavailable [phone] Allergies Allergen (clinical drug ingredient) Drug/Non Drug Allergy documented on EMR Reaction Allergy Type Onset Date Status sulfacetamide Sulfacetamide Unknown Drug Allergy Active Penicillin Unknown Drug Allergy Active codeine Codeine stomach upset Drug Allergy Act janet Results Component Value Reference Range Notes Complete Blood Count Auto Di ff Reviewed date:02/11/2024 08:40:31 AM Interpretation: Performing Lab:[facility], [address] [place] [address] Notes/Report: White Blood Count 8.6 4.8-10.8 X10*3/uL [...] Panel Reviewed date:02/11/2024 08:40:31 AM Interpretation: Performing Lab:[address] [address] Notes/Report: Sodium 141 135-145 mmol/L Potassium 4.0 3.3-5.1 mmol/L Chloride 109 96-108 mmol/L Carbon Dioxide 24 22-29 mmol/L Anion Gap 12 12-20 Blood Urea Nitrogen 12 9-16 mg/dL Creatinine 0.64 0.5-1.4 mg/dL Estimated Glomerular Filt Rate > 60 NOTE: For -Mauritanian individuals, multiply the result by 1.210. Chronic [...] Random Reviewed date:02/11/2024 08:40:31 AM Interpretation: Performing Lab:[address] [address] Notes/Report: RECEIVED Creatinine Urine 69.30 Microalbumin Urine 26.0 Microalbum/Creatinine Ratio Ur 37.5 <30 ug/mg cr Albumin/Creatinine Ratio Reference Ranges: Normal: < 30 ug/mg creatinine Microalbuminuria: 30 - 300 ug/mg creatinine Clinical Albuminuria: > 300 ug/mg creatinine Hemoglobin A1c Reviewed date:02/11/2024 08:40:31 AM Interpretation: Performing Lab:[facility], [address] [place] [address] Notes/Report: Hemoglobin A1c % 5.6 <6.0 % [...] average glucose, using the formula of the M1H-Dehrzqp Average Glucose study (ADAG), Diabetes Care, Vol.31,#8, [...] Problem Status W/U Status Risk Notes Problem 6992282 Former smoker (Z87.891) Active confirmed She has been abstinent since 1998. She has a plan to prevent relapse in times of stress and illness. Problem Fibromyalgia (407440583) Fibromyalgia (M79.7) Active confirmed Her symptoms ar e stable and unchanged. Problem 346930955 Overweight (E66.3) Active confirmed This problem duron s resolved and will be removed from her problem list Problem 81668169 Allergy to sulfa drugs (Z88.2) Active confirmed Problem 218632781 GERD without esophagitis (K21.9) Active confirmed Her reflux symptoms are well controlled with opux-ipz-czpqwnj medication. Problem 67409455 Essential hypertension (I10) Active confirmed Her blood pressure is 134/71. She is stable and no change in her regimen was needed. I recommended continued sodium restriction. Problem 22531524 Penicillin allergy (Z88.0) Active confirmed Problem 416491684018538 Hematochezia (K92.1) Active confirmed #4 days. She isn't visible streaks of red blood in her stool. She will be referred to her gastroenterologi st for colonoscopy. 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 Problem 35585356439511897 Adenocarcinoma of right lung (C34.91) Active confirmed There was no sign of her recurrent cervical new primary today. Problem 388906533 Renal cyst (N28.1) Active confirmed Diagnosis will be followed. 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 She has begun on anastrozole. She will have a radiation therapy consultation. Because of diffuse aches and pains. We have temporarily stopped anastrozole. Problem Psoriatic arthritis (295176131) Psoriatic arthritis (L40.50) Active confirmed She has [...] Date Provider Diagnosis George Dias III, MD [address] [place] [address] [place] [address] 09/03/2023 George Dias Ductal carcinoma in situ (DCIS) of right breast D05.11 ; Ductal carcinoma in situ (DCIS) of left breast D05.12 ; Overweight E66.3 ; Fibromyalgia M79.7 ; Hyperglycemia R73.9 ; GERD without esophagitis K21.9 ; Essential hypertension I10 ; Former smoker Z87.891 ; Psoriatic arthritis L40.50 and Adenocarcinoma of right lung C34.91 George Dias III, MD [address] [place] [address] [place] [address] 03/07/2024 George Dias Ductal carcinoma in situ (DCIS) of right breast D05.11 ; Ductal carcinoma in situ (DCIS) of left breast D05.12 ; Essential hypertension I10 ; GERD without esophagitis K21.9 ; Former smoker Z87.891 and Fibromyalgia M79.7 George Dias III, MD [address] [place] [address] [place] [address] 09/12/2023 George Dias Assessments Encounter Date Diagnosis [...] Her reflux symptoms are well controlled with ikuk-jbg-hxoljfw medication. 09/03/2023 Hyperglycemia (ICD-1 0 - R73.9) Her blood pressure is controlled and no change in her regiimen as needed. 03/07/2024 Former smoker (ICD-1 0 - Z87.891) She has been abstinent since 1998. She has a plan to prevent relapse in times of stress and illness. 09/03/2023 GERD without esophagitis (ICD-10 - K21.9) Her reflux symptoms are well controlled with sqgj-ogb-vsjevko medication. 03/07/2024 Fibromyalgia (ICD-10 - M79.7) Her [...] Details Provider Name:George Dias, 09/09/2024 04:00:00 PM, [address] [place] [address] DR, [address], [place], [address], Insurance Providers Payer Name Payer Address Payer Phone Subscriber Number Group Number Insured Name Patient Relationship to Insured Coverage Start Date Coverage End Date [facility] [address] [facility] [address] [facility] [place] [id number] DAJA POWELL Self - patient is the [...] l right kidney former smoker since 1998 [id number] son [id number] invasive ductal carcinoma left breast April [id number] [...] Lumpectomy and sentinel node biopsy left breast, [facility], Dr. Mixon 04/2021 Breast cancer surgery in 2021 2021
--- OUTSIDE RECORDS SUMMARY | 2024-07-01 13:50 | XMS_ITS ---
Author Organization George Dias III, MD Address [address] [place] [address] [place] [address] Care Team Providers Care Car Electronics Installer Name Role Phone Joseph Valencia MD Primary Care Provider Karoa George Hargrove [phone] REASON FOR VISIT wants lab results done on 09/10/2023 Encounters Encounter Location Date Provider Diagnosis George Dias III, MD [address] [place] [address] [place] [address] 09/12/2023 George Dias Plan Of Treatment Next Appt Details Provider Name:George Dias, 09/09/2024 04:00:00 PM, [address] [place] [address] [facility] [facility], [address], Progress Notes * DAJA PEACE PDOB: (73 yo F)Acc No.[id number]:09/12/2023 Patient:?MARLIN PEACE :1950???Age:73 Y???Sex:Female Address:[address] [place] [address] [place], [address] * true * Date:? Generated for Pina bennett/Rozina/eTransmitting on:?07/01/2024 08:31 AM EST
--- OUTSIDE RECORDS SUMMARY | 2024-07-01 13:50 | XMS_ITS ---
Author Organization [facility] Address [address] [place] [address] Care Team Providers Care Sub Prior Name Role Phone Joseph Valencia MD Primary Care Provider Merle Lopez [phone] REASON FOR VISIT cx ON 11/05 Encounters Encounter Location Date Provider Diagnosis [facility] [address] [place] [address] 11/01/2023 Merle Parker Plan Of Treatment No Information Progress Notes * Eliza RINCON PDOB: (73 yo F)Acc No.[id number]:11/01/2023 Patient:?Eliza Rincon :1950???Age:73 Y???Sex:Female Address:[address] [place] [address], [address] * true * Date:? Generated for Andrei sabrina/Roizna/eTransmitting on:?07/01/2024 08:31 AM EST
--- OUTSIDE RECORDS SUMMARY | 2024-07-01 13:50 | XMS_ITS ---
Author Organization [facility] Address [address] [place] [address] Care Team Providers Care Commercial Real Estate Lender Name Role Phone Joseph Valencia MD Primary Care Provider Merle Lopez [phone] Encounters Encounter Location Date Provider Diagnosis [address] [address] 11/06/2023 Merle Parker Plan Of Treatment No Information Progress Notes * Eliza RINCON PDOB: (74 yo F)Acc No.[id number]:11/06/2023 Progress Notes Patient:?Eliza RINCON Provider:?Merle Parker DPM :1950???Age:73 Y???Sex:Female D ate:11/06/2023 Address:[address] [place], [place] [id number] Pcp:Joseph Valencia MD Subjective: * Chief Complaints: [...] Parker DPM Date:? Generated for Pina bennett/Rozina/eTransmitting on:?07/01/2024 08:31 AM EST
--- OUTSIDE RECORDS SUMMARY | 2024-07-01 13:50 | XMS_ITS | Encounter Summary ---
Author Organization [facility] Address [address] [address] Phone Care Team Providers Care Accounting Assistant Name Role Phone Joseph Valencia MD Primary Care Provider Encounter Details Date Type Department Care Team (Latest Contact Info) Description 03/11/2024 Office Communication [facility] [address] [address] Carlos Manuel Wagoner MD [address] [address] Hypertensive heart and chronic kidney [...] Care Team (Late st Contact Info) Description 08/11/2024 3:15 PM EDT Office Visit [facility] [address] [place] [address] Carlos Manuel Wagoner MD [address] [facility] [address] [place] [address] Scheduled Orders Name Type Priority Associated [...] Magnesium 2.2 1.6 - 2.3 mg/dL [facility] Blood (Blood, Venous) 04/03/2024 4:13 PM EST 04/03/2024 us Carlos Manuel Wagoner MD LAB BLOOD ORDERABLES Final Re sult [facility] [address] [place] [address] * CBC (04/03/2024 4:13 PM EST) WBC 9.2 3.4 - 10.8 x10E3/uL [facility] Comment: Effective April 14, 2024 profile 828022 WBC will be made ??non-orderable as a stand-alone order code. RBC 4.19 3.77 - 5.28 x10E6/uL [facility] Hemoglobin 13.2 11.1 - 15.9 g/dL [facility] Hematocrit 40.1 34.0 - 46.6 % [facility] MCV 96 79 - 97 fL [facility] MCH 31.5 26.6 - 33.0 pg [facility] MCHC 32.9 31.5 - 35.7 g/dL [facility] RDW 12.8 11.7 - 15.4 % [facility] Platelets 266 150 - 450 x10E3/uL [facility] Blood (Blood, Venous) 04/03/2024 4:13 PM EST 04/03/2024 us Carlos Manuel Wagoner MD LAB BLOOD ORDERABLES Final Re sult [facility] [address] [place] [address] * Vitamin D 25 Hydroxy (04/03/2024 4:13 PM EST) Vitamin D, 25-OH, Total 33.5 30.0 - 100.0 ng/mL [facility] Comment: Vitamin D deficiency has been defined by the [place] of Medicine and an Endocrine Society practice guideline as a level of serum 25-OH vitamin D less than 20 ng/mL (1,2). The Endocrine Society went on to further define vitamin D insufficiency as a level between 21 and 29 ng/mL (2). 1. IOM ([place] of Medicine). 2010. Dietary reference ?? intakes for calcium and D. [place]: The ?? National AcademSpotted Press. 2. Zaria MF, Xander NC, Tanika AGUILAR, et al. ?? Evaluation, treatment, and prevention of vitamin D ?? deficiency: an Endocrine Society clinical practice ?? guideline. JCEM. 2010; 96(7):1911-30. Blood (Blood, Venous) 04/03/2024 4:13 PM EST 04/03/2024 Carlos Manuel Wagoner MD LAB BLOOD ORDERABLES Final Re sult Performing Organization Address City/[facility]/ZIP Co de Phone Number [facility] [address] [place] [address] * Protein, Total, Random Urine w/Creatinine (Protein/Creat Ratio) (04/03/2024 4:13 PM EST) Creatinine, Ur 36.2 Not Estab. mg/dL [facility] Protein, Ur 4.0 Not Estab. mg/dL [facility] Urine Protein/Creatin ine Ratio 110 0 - 200 mg/g creat [facility] Urine (Urine, Clean Catch) 04/03/2024 4:13 PM EST 04/03/2024 Carlos Manuel Wagoner MD LAB URINE ORDERABLES Final Re [facility] Performing Organization Address City/[facility] Co de Phone Number [facility] [address] [place] [address] * (ABNORMAL) Urine Albumin / Creatinine Ratio (04/03/2024 4:13 PM EST) Urine Microalbumin 13.0 Not Estab. ug/mL [facility] Microalbumin/Crea tinine Ratio 36(H) 0 - 29 mg/g creat [facility] Comment: ? Normal: ?0 - ??29 ? Moderately increased: 30 - 300 ? Severely increased: ? >300 Urine (Urine, Clean Catch) 04/03/2024 4:13 PM EST 04/03/2024 Carlos Manuel Wagoner MD LAB URINE ORDERABLES Final Re sult [facility] [address] [place] [address] * (ABNORMAL) Urinalysis with microscopic (04/03/2024 4:13 PM EST) Specific [place], Urine 1.011 1.005 - 1.030 [facility] [phone] pH Urine 6.0 5.0 - 7.5 [facility] Color, Urine Yellow Yellow [facility] [phone] Appearance Urine Clear Clear [facility] WBC Esterase Urine Trace(A) Negative [facility] [phone] Protein, Ur Negative Negative/Tra ce [facility] [phone] Glucose, Ur Negative Negative [facility] Ketones, Urine Negative Negative [facility] Blood Urine Negative Negative [facility] Bilirubin Urine Negative Negative [facility] Urobilinogen Urine 0.2 0.2 - 1.0 mg/dL [facility] Nitrite, Urine Negative Negative [facility] Microscopic Examination See below: [facility] Comment:Microscopic was lisa cated and was performed. Urine (Urine, Clean Catch) 04/03/2024 4:13 PM EST 04/03/2024 Carlos Manuel Wagoner MD LAB URINE ORDERABLES Final Re sult [facility] [address] [place] [address] * Renal Function Panel (04/03/2024 4:13 PM EST) Glucose 87 70 - 99 mg/dL [facility] BUN 13 8 - 27 mg/dL [facility] Creatinine 0.62 0.57 - 1.00 mg/dL [facility] eGFR CKD-EPI CR 2020 93 >59 mL/min/1.7 3 [facility] BUN/Creatinine Ratio 21 12 - 28 [facility] Sodium 143 134 - 144 mmol/L [facility] Potassium 4.5 3.5 - 5.2 mmol/L [facility] Chloride 106 96 - 106 mmol/L [facility] Bicarbonate (CO2) 21 20 - 29 mmol/L [facility] Calcium 9.1 8.7 - 10.3 mg/dL [facility] Phosphorus 3.4 3.0 - 4.3 mg/dL [facility] Albumin 4.2 3.8 - 4.8 g/dL [facility] Blood (Blood, Venous) 04/03/2024 4:13 PM EST 04/03/2024 Carlos Manuel Wagoner MD LAB BLOOD ORDERABLES Final Re sult [facility] [address] [place] [address] * PTH, Intact (04/03/2024 4:13 PM EST) PTH 30 15 - 65 pg/mL [facility] Blood (Blood, Venous) 04/03/2024 4:13 PM EST 04/03/2024 us Carlos Manuel Wagoner MD LAB BLOOD ORDERABLES Final Re sult [facility] [address] [place] [address] documented in this encounter Visit Diagnoses Diagnosis Hypertensive heart and chronic kidney disease without heart failure, with stage 1 through stage 4 chronic kidney disease, or unspecified chronic kidney disease- Primary documented in this encounter Care Teams Accounting Assistant Relationship Specialty Start Date End Date Joseph Valencia MD [id number] [place], [place] PCP - General Internal Medicine 08/02/23 documented as of this encounter
--- OUTSIDE RECORDS SUMMARY | 2024-07-01 13:50 | XMS_ITS ---
Author Organization [facility] Address [address] [place] [address] Care Team Providers Care Mortician Supplies Sales Representative Name Role Phone Joseph Valencia MD Primary Care Provider UnavailGeorge Ferguson Unavailable [phone] Larissa KEY, George Phipps REASON FOR VISIT Jhonny HAMMONDS/ NEED CLINICALS please .. what to send? Encounters Encounter Location Date Provider Diagnosis [facility] [address] [place] [address] 06/17/2024 George Nguyen PLAN OF TREATMENT Next Appt Details Provider Name:George Nguyen , 10/15/2024 04:20:00 PM, [address] [place] [address], [address], [place], [address],
--- OUTSIDE RECORDS SUMMARY | 2024-07-01 13:50 | XMS_ITS | Patient Health Record ---
Author Organization [facility] Address [address] [place] [address] Care Team Providers Care Hydrometallurgical Engineer Name Role Phone Joseph Valencia MD Primary Care Provider George Reese Unavailable [phone] George Dias MD Unavailable Unavailable ALLERGIES Allergen (clinical drug ingredient) Drug/Non Drug Allergy documented on EMR Reaction Allergy Type Onset Date Status codeine Codeine Unknown Drug Allergy Active Substance with sulfonamide structure and antibacterial mechanism of action (substance) Sulfa (uncoded) Unknown Allergy Active Penicillin (uncoded) Unknown Allergy Active RESULTS Component Value Reference Range Notes Pathology Reviewed date:01/17/2024 02:55:38 PM Interpretation: Performing Lab:[facility], [address] [place] [phone] Notes/Report: REASON FOR REFERRAL No Information MEDICATIONS Medication SIG (Take, Route, Frequency, Duration) Notes Start Date End Date Status Multivitamin - 1 tablet Orally Once a day for 30 day(s) Active Mesalamine 1000 MG 1 Rectal Nightly for 30 days Active Albuterol Sulfate (2.5 MG/3ML) 0.083% INHALE 1 VIAL EVERY 4 HOURS BY MOUTH NEEDED Inhalation for 25 Active Mesalamine 1.2 GM 4 Orally Once a day for 30 day(s) 02/02/2024 Active ALPRAZolam 0.5 MG as directed Orally 4x a day Active Furosemide 40 MG 1 tablet Orally Once a day Active Aspir-81 once a day Active Lialda 1.2 GM 4 Orally Once a day for 30 day(s) Please let my office know if the insurance is not covering this and we can try a different mesalamine product. Thanks 01/05/2024 Active Mesalamine 1000 MG 1 suppository at bedtime Rectal Every night at bedtime for 30 day(s) 07/20/2023 Active Albuterol Sulfate HFA 108 (90 Base) MCG/ACT Inhalation for 25 A ctive Omeprazole 20 MG 1 Orally BID Active dilTIAZem HCl ER Coated Beads 180 MG TAKE ONE CAPSULE BY MOUTH DAILY Oral for 90 Active Iron Active Espinosa Colon Health Active Letrozole 2.5 MG Oral for 90 A ctive Turmeric Active Potassium Chloride ER 10 MEQ Oral for 90 Active Carvedilol 3.125 MG PLEASE SEE ATTACHED FOR DETAILED DIRECTIONS Oral for 90 Active Tylenol Extra Strength Active IMMUNIZATIONS Vaccine Route Administration Date Status Comme nts Influenza Unknown 03/29/2020 Administered Influenza Unknown 09/26/2023 Refused Influenza Unknown 06/11/2024 Refused SOCIAL HISTORY Tobacco Use: Social History [...] Notes Problem Rectal bleed (K62.5) Active confirmed 57181948 Problem Gastroesophageal reflux disease, esophagitis presence not specified (K21.9) Active confirmed 706710395 Problem Epigastric abdominal pain (R10.13) Active confirmed 29638083 Problem 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 Benign neoplasm of colon (57922855) Problem 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) Active confirmed Pro ctitis (9155054) Problem Encounter for screening for malignant neoplasm of colon (Z12.11) Active confirmed Screening for malignant neoplasm of colon (087352897) Problem Diverticulosis of colon (K57.30) Active confirmed Diverticulosi s of colon (237782164) Problem Ulcerative colitis (K51.90) Active confirmed Ulcerative colitis (71251488) Problem Diverticulosis of large intestine without perforation or abscess without bleeding (K57.30) Active confirmed Diverticul ar disease of colon (921695123) Problem Personal history of colonic polyps (Z86.010) Active confirmed History of poly p of colon (situation) (332945604) VITAL SIGNS Temperature 98.6 degrees Fahrenheit 06/11/2024 Blood pressure diastolic 00 mm Hg 06/11/2024 Height 65 in 06/11/2024 Blood pressure systolic 000 mm Hg 06/11/2024 Weight 150 lbs 06/11/2024 BMI 24.96 kg/m2 06/11/2024 Encounters Encounter Location Date Provider Diagnosis [facility] [place] [facility] [address] [id number] 01/04/2024 George Nguyen Colon cancer screeni ng Z12.11 ; Colon polyps K63.5 ; Ulcerative colitis K51.90 and Diverticulosis of large intestine without perforation or abscess without bleeding K57.30 [facility] [address] [place] [address] 09/26/2023 George Nguyen Rectal bleed K62.5 ; Gastroesophageal reflux disease, esophagitis presence not specified K21.9 ; Tubulovillous adenoma of colon K63.5 ; Proctitis K62.89 and Encounter for screening for malignant neoplasm of colon Z12.11 [facility] [address] [place] [phone] 06/11/2024 George Nguyen Ulcerative colitis K51.90 ; Encounter for screening for malignant neoplasm of colon Z12.11 and Personal history of colonic polyps Z86.010 [facility] [address] [place] [address] 07/19/2023 George Nguyen [facility] [address] [place] [address] 10/23/2023 George Nguyen [facility] [address] [place] [phone] 12/31/2023 George Nguyen [facility] [address] [place] [phone] 01/03/2024 George Nguyen [facility] [address] [place] [address] 01/05/2024 George Nguyen [facility] [address] [place] [address] 02/02/2024 [facility] [address] [place] [phone] 02/06/2024 George Nguyen [facility] [address] [place] [phone] 02/11/2024 George Nguyen [facility] [address] [place] [phone] 03/05/2024 George Nguyen [facility] [address] [place] [phone] 04/02/2024 George Nguyen [facility] [address] [place] [address] 06/17/2024 George Nguyen ASSESSMENTS Encounter Date Diagnosis Assessment [...] or 3rd night if you want to. 06/11/2024 Encounter for screening for malignant neoplasm of colon (ICD-10 - Z12.11) 06/11/2024 Ulcerative colitis (ICD-10 - K51.90) Start back on two of the 1.2 Gm Mesalamine piils every day. Avoid all NSAIDs like Advil, Ibuprofen, etc. Tylenol is fine to use. We will repeat a colonoscopy in the Fall, 202401/04/2024 Ulcerative colitis (ICD-10 - K51.90) 09/26/2023 Tubulovillous adenom a of colon (ICD-10 - K63.5) 06/11/2024 Personal history of colonic polyps (ICD-10 - Z86.010) 01/04/2024 Diverticulosis of large intestine without perforation [...] Provider Name:George Nguyen , 10/15/2024 04:20:00 PM, [address] [facility], [address], [place], [address], Insurance Providers Payer Name Payer Address Payer Phone Subscriber Number Group Number Insured Name Patient Relationship to Insured Coverage Start Date Coverage End Date [facility] [address] [place] [phone] [id number] DAJA YOUNG Self - patient is the insured MEDICAL (GENERAL) HISTORY Medical History History ICD Code Lung cancer - 1998--Removed upper right lobe Breast cancer-1998 Left--surgery and XRT ; and 03/2019 Right--surgery and XRT GERD Overactive parathyroid Anxiety Arthritis Colonoscopy in 2004 was neg. except for a hyperplastic polyp Denies NE,DM,CVA,renal disease COPD Colonscopy in 01/2020 with a [...] 3 small tubular adenomas; no active proctitis Colonoscopy in December with multiple polyps noted and multiple large polyps removed at that time which were shown to be tubular adenomas. Also noted was an active proctitis and distal colitis. Surgical History Surgery Date(Month/Year) RUL lung resection for cancer Lumpectomies right and left breast for cancer with left sided node dissection Right inguinal hernia repair Cateracts left and right -Dr. Newton Lasannalisa surgery on both eyes Vein surgery left leg - Dr. Aponte 01/2023 Parathyroid surgery scheduiled for at [facility]--Dr. Arroyo
--- OUTSIDE RECORDS SUMMARY | 2024-07-01 13:50 | XMS_ITS ---
Author Organization George Dias III, MD Address [address] [place] [place] [address] Care Team Providers Care Chiropractic Teacher Name Role Phone Joseph Valencia MD Primary Care Provider George Ren Unavailable [phone] Allergies Allergen (clinical drug ingredient) Drug/Non Drug [...] Date Provider Diagnosis George Dias III, MD [address] [place] [address] [place] [address] 09/03/2023 George Dias Ductal carcinoma in situ [...] Her reflux symptoms are well controlled with fjwl-ima-tswbagc medication. 09/03/2023 Essential hypertension (ICD-10 - I10) [...] OV Provider Name:George Dias, 09/09/2024 04:00:00 PM, [address] [place] [address] [address], [place], [address], Progress Notes * DAJA PEACE PDOB: (73 yo F)Acc No.[id number]:09/03/2023 Progress Notes Patient:?MARLIN PEACE L P Provider:?George Dias MD :1950???Age:73 Y???Sex:Female D ate:09/03/2023 Address:[address] [place], [place] [phone] Pcp:Joseph Valencia MD Subjective: * Chief Complaints: [...] referred to endocrinology. She is seeing a can line examiner as well as a vascular surgeon for [...] Lumpectomy and sentinel node biopsy left breast, [facility], Dr. Mixon 04/2021 * Hospitalization/Major Diagno [...] Her reflux symptoms are well controlled with dmvk-ncl-stpxnqg medication.?7.?Essential hypertension - I10, Her blood pressure [...] Dias MD Date:?08/13 Generated for Pina bennett/Rozina/eTransmitting on:?07/01/2024 08:31 AM EST History and Physical Notes * HPI (History of Present Illness) Category Sub-Category Detail Notes COVID-19 Screening Questions Have you had any new onset fever, chills, cough, congestion, sore throat, shortness of breath, muscle aches?: No Have you been exposed to the virus withi n the last 10 days?: No Have you travelled internationally in [facility] last 10 days?: No Have [...]
--- OUTSIDE RECORDS SUMMARY | 2024-07-01 13:50 | XMS_ITS | Continuity of Care Document ---
Author Organization [facility] Address [address] [place] [address] Phone Care Team Providers Care Emergency Management Specialist Name Role Phone Yasmany KEY, GARDENIA, [...] Telemedicine [place] & [place] [facility], [address] [place] [address] [address], [place], [id number], [place] tel:[phone] R - [place] - [place] Varicose veins of bilateral lower extremities with other complicationsL ocalized edemaCramp and spasmPruritus, unspecifiedEss ential (primary) hypertension 4 Yasmany KEY, GARDENIA, CROW Vazquez. [address], [address], [facility], [id number] , [place]. tel:[phone] Offic Cons New/estab Mod-hi 60- [place] & [place] [facility], [address] [place] [address] [address], [place], [id number], tel:[phone] CVR - [place] Essential (primary) hypertensionPr uritus, unspecifiedPai n in left legCramp and spasmLocalized edemaVaricose veins of bilateral lower extremities with other complicationsP ain in right lower legPain in left lower legPain in right leg 4 Yasmany KEY RVT, CROW Vazquez. [address] [place] [address], [facility] willis[place] [place], [id number] , [place]. tel:[phone] [facility], [address] [place] [address] Dr [address] [address], [id number], tel:[phone] CVR - [facility] Varicose veins of bilateral lower extremities with pain 4 Yasmany KEY RVT, CROW Vazquez. [address] [place] [address], Lalit willis [place], [id number] , [place]. tel:[phone] Referring Provider: George Jade MD, RVT, CROW, [address] [place] [address], [place], [address] . tel:[phone] Family History Family Member Type Diagnosis Age At Onset No Information Payers Payer name Insurance type Covered constitution party ID Grayson jacome(s) [employer] [place] [employer] CI [id number] Social History Type Description Quantity Date Captured [...]
--- OUTSIDE RECORDS SUMMARY | 2024-07-01 13:50 | XMS_ITS | Patient Health Record ---
Author Organization [facility] Address [address] [place] [address] Care Team Providers Care Primary Therapist Name Role Phone Joseph Valencia MD Primary Care Provider UnavailMerle Mejia Unavailable [phone] Allergies Allergen (clinical drug ingredient) Drug/Non Drug [...] Problem Status W/U Status Risk Notes Problem 1470424 Psoriasis (L40.9) Active confirmed Problem 77129966 Varicose veins of both legs with edema (I83.893) Active confirmed Encounters Encounter Location Date Provider Diagnosis [facility] [place] [address] [place] [address] 11/01/2023 Merle Parker Plan Of Treatment Pending [...] Date [employer] [place] Medicare Advantage [facility] [address] [facility] [place] [id number] Eliza Shields Self - patient is the insured Medical (General) History Medical History History ICD Code Anxiety Back,Hip,and Knee pain Cancer Hiatal hernia Sciatica Psoriasis/eczema Stomach ulcer hyperparathyroidism Surgical History Surgery Date(Month/Year) lung lobectomy right and left 1998
--- OUTSIDE RECORDS SUMMARY | 2024-07-01 13:50 | XMS_ITS | Clinical Summary ---
Author Organization [facility] Address [address] [facility] [address] [place] [address] Phone Care Team Providers Care Foundry Finisher Name Role Phone Joseph Valencia MD Primary Care Provider [phone] Allergies Active Allergy Reactions Criticality Noted Date [...] in the morning 3 Active aspirin (ST JASON) 81 MG EC tablet Take 81 mg by mouth in the morning. Active carvedilol (Coreg) 12.5 MG tablet Take 1 tablet (12.5 mg total) by mouth in the morning and 1 tablet (12.5 mg total) in the evening. Take with meals. 180 tablet 3 4 07/27/19 25 Active Additional Information Patient not taking.Reported on 06/19/2024 doxycycline (VIBRA-TABS) 100 MG tablet 4 Active [...] DAY 180 capsule 4 08/02/19 25 Active dilTIAZem CD (CARDIZEM CD) 180 MG 24 hr capsule Take 180 mg by mouth 1 (one) time each day 5 Active Active Problems Problem Noted Date Diagnosed Date Essential (primary) hypertension 10/29/2023 Personal history of kidney stones 10/29/2023 Other secondary hypertension 08/02/2023 Encounters Date Type Department Care Team Description 06/19/2024 2:00 PM EST Telemedicine [facility] [address] [place] [address] Carlos Manuel Wagoner MD Personal history of kidney stones (Primary Dx); Essential (primary) hypertension 05/02/2024 Refill [facility] [address] [place] [address] Carlos Manuel Wagoner MD 05/02/2024 Refill [facility] [address] [place] [address] Carlos Manuel Wagoner MD 04/17/2024 Office Communication [facility] [address] [facility] [address] [place] [address] Escobar Lundberg 04/03/2024 Orders Only [facility] [address] [place] [address] Carlos Manuel Wagoner MD Hypertensive heart and chronic kidney disease without heart failure, with stage 1 through stage 4 chronic kidney disease, or unspecified chronic kidney disease from Last 3 Months Immunizations Name Administration [...] Office Visit [facility] [address] [place] [address] Carlos Manuel Wagoner MD [address] [address] Health Maintenance Due Date Last Done Comments Breast Cancer Screening 1950 Colorectal Cancer Screening: Annual FOBT 1998 Colorectal Cancer Screening: Colonoscopy 1998 Colorectal Cancer Screening: Sigmoidoscopy 1998 Pneumococcal Vaccine: 65+ Years (3 of 3 - PPSV23 or PCV20) 02/01/2015 12/07/2014, 12/05/2006 Influenza Vaccine (#1) 2024 , 03/06/2011 Hepatitis B Vaccine Aged Out No [...] Urine 0-5 0 - 5 /hpf [facility] RBC, Urine None seen 0 - 2 /hpf [facility] Squamous Epithelial, Urine None seen 0 - 10 /hpf [facility] Casts None seen None seen /lpf [facility] Bacteria, Urine None seen None seen/Few [facility] 04/03/2024 4:13 PM EST 04/03/2024 Carlos Manuel Wagoner MD LAB MICROBIOLOGY - GENERAL OR DERABLES Final Result [facility] [address] [place] [address] * Protein, Total, Random Urine w/Creatinine (Protein/Creat Ratio) (04/03/2024 4:13 PM EST) Creatinine, Ur 36.2 Not Estab. mg/dL [facility] Protein, Ur 4.0 Not Estab. mg/dL [facility] Urine Protein/Creatin ine Ratio 110 0 - 200 mg/g creat [facility] Urine (Urine, Clean Catch) 04/03/2024 4:13 PM EST 04/03/2024 Carlos Manuel Wagoner MD LAB URINE ORDERABLES Final Re sult [facility] [address] [place] [address] * (ABNORMAL) Urine Albumin / Creatinine Ratio (04/03/2024 4:13 PM EST) Urine Microalbumin 13.0 Not Estab. ug/mL [facility] Microalbumin/Crea tinine Ratio 36(H) 0 - 29 mg/g creat [facility] Comment: ? Normal: ?0 - ??29 ? Moderately increased: 30 - 300 ? Severely increased: ? >300 Urine (Urine, Clean Catch) 04/03/2024 4:13 PM EST 04/03/2024 us Carlos Manuel Wagoner MD LAB URINE ORDERABLES Final Re sult [facility] [address] [place] [address] * Vitamin D 25 Hydroxy (04/03/2024 4:13 PM EST) Vitamin D, 25-OH, Total 33.5 30.0 - 100.0 ng/mL [facility] Comment: Vitamin D deficiency has been defined by the [place] of Medicine and an Endocrine Society practice guideline as a level of serum 25-OH vitamin D less than 20 ng/mL (1,2). The Endocrine Society went on to further define vitamin D insufficiency as a level between 21 and 29 ng/mL (2). 1. IOM ([place] of Medicine). 2010. Dietary reference ?? intakes for calcium and D. [place]: The ?? National Academies Press. 2. Zaria MF, Xander NC, Tanika AGUILAR, et al. ?? Evaluation, treatment, and prevention of vitamin D ?? deficiency: an Endocrine Society clinical practice ?? guideline. JCEM. 2010; 96(7):1911-30. Blood (Blood, Venous) 04/03/2024 4:13 PM EST 04/03/2024 Carlos Manuel Wagoner MD LAB BLOOD ORDERABLES Final Re sult [facility] [address] [place] [address] * (ABNORMAL) Urinalysis with microscopic (04/03/2024 4:13 PM EST) Specific [place], Urine 1.011 1.005 - 1.030 [facility] pH Urine 6.0 5.0 - 7.5 [facility] [phone] Color, Urine Yellow Yellow [facility] [phone] Appearance Urine Clear Clear [facility] WBC Esterase Urine Trace(A) Negative [facility] [phone] Protein, Ur Negative Negative/Tra ce [facility] [phone] Glucose, Ur Negative Negative [facility] Ketones, Urine Negative Negative [facility] [phone] Blood Urine Negative Negative [facility] [phone] Bilirubin Urine Negative Negative [facility] [phone] Urobilinogen Urine 0.2 0.2 - 1.0 mg/dL [facility] [phone] Nitrite, Urine Negative Negative [facility] [phone] Microscopic Examination See below: [facility] [phone] Comment:Microscopic was lisa cated and was performed. Urine (Urine, Clean Catch) 04/03/2024 4:13 PM EST 04/03/2024 Carlos Manuel Wagoner MD LAB URINE ORDERABLES Final Re sult [facility] [address] [place] [address] * CBC (04/03/2024 4:13 PM EST) WBC 9.2 3.4 - 10.8 x10E3/uL [facility] Comment: Effective April 14, 2024 profile 566510 WBC will be made ??non-orderable as a stand-alone order code. RBC 4.19 3.77 - 5.28 x10E6/uL [facility] Hemoglobin 13.2 11.1 - 15.9 g/dL [facility] Hematocrit 40.1 34.0 - 46.6 % [facility] MCV 96 79 - 97 fL [facility] MCH 31.5 26.6 - 33.0 pg [facility] MCHC 32.9 31.5 - 35.7 g/dL [facility] RDW 12.8 11.7 - 15.4 % [facility] Platelets 266 150 - 450 x10E3/uL [facility] Blood (Blood, Venous) 04/03/2024 4:13 PM EST 04/03/2024 Carlos Manuel Wagoner MD LAB BLOOD ORDERABLES Final Re sult [facility] [address] [place] [address] * PTH, Intact (04/03/2024 4:13 PM EST) PTH 30 15 - 65 pg/mL [facility] Blood (Blood, Venous) 04/03/2024 4:13 PM EST 04/03/2024 Carlos Manuel Wagoner MD LAB BLOOD ORDERABLES Final [facility] [address] [place] [address] * Magnesium (04/03/2024 4:13 PM EST) Pathologist [facility] Magnesium 2.2 1.6 - 2.3 mg/dL [facility] Blood (Blood, Venous) 04/03/2024 4:13 PM EST 04/03/2024 Carlos Manuel Wagoner MD LAB BLOOD ORDERABLES Final Re sult Performing Organization Address City/[facility] de Phone Number [facility] [address] [place] [address] * Renal Function Panel (04/03/2024 4:13 PM EST) Pathologist [facility] Glucose 87 70 - 99 mg/dL [facility] BUN 13 8 - 27 mg/dL [facility] Creatinine 0.62 0.57 - 1.00 mg/dL [facility] eGFR CKD-EPI CR 2020 93 >59 mL/min/1.7 3 [facility] BUN/Creatinine Ratio 21 12 - 28 [facility] Sodium 143 134 - 144 mmol/L [facility] Potassium 4.5 3.5 - 5.2 mmol/L [facility] Chloride 106 96 - 106 mmol/L [facility] Bicarbonate (CO2) 21 20 - 29 mmol/L [facility] Calcium 9.1 8.7 - 10.3 mg/dL [facility] Phosphorus 3.4 3.0 - 4.3 mg/dL [facility] Albumin 4.2 3.8 - 4.8 g/dL [facility] Blood (Blood, Venous) 04/03/2024 4:13 PM EST 04/03/2024 us Carlos Manuel Wagoner MD LAB BLOOD ORDERABLES Final Re sult [facility] [address] [place] [address] from Last 3 Months Insurance [facility] Care Teams Foundry Finisher Relationship Specialty Start Date End Date Joseph Valencia MD [address] [place] [address] [address] [place], [place] PCP - General Internal Medicine 08/02/23
--- OUTSIDE RECORDS SUMMARY | 2024-07-01 13:50 | XMS_ITS | Encounter Summary ---
Author Organization [facility] Address [address] [place] [phone] Phone Care Team Providers Care Mixing Picker Tender Name Role Phone Joseph Valencia MD Primary Care Provider [phone] Encounter Details Date Type Department Care Team (Late st Contact Info) Description 06/19/2024 2:00 PM EST Telemedicine [facility] [address] WREN [address] [place] [phone] Carlos Manuel [place] MD [address] [address] Personal history of kidney stones (Primary Dx); Essential (primary) hypertension Social History Tobacco Use Types Packs/Day Years [...] on file documented as of this encounter Patient Instructions * Patient Instructions* Carlos Manuel [place] MD - 06/19/2024 2:00 PM EST No NSAIDS - Do not take non-steroidal anti-inflammatory medications (NSAIDS) such as Ibuprofen (Advil, Motrin, etc), Naproxen (Aleve, etc), Celecoxib (Celebrex) or Ketoprofen. These common arthritis medications can cause permanent kidney damage or worsen your kidney damage. For mild occasional pain, Acetaminophen (Tylenol, etc) is safe for your kidneys. Blood pressure monitoring education: Monitor home blood pressure values after sitting for 5 minutes with back and arm support. Keep a log. Bring your log and blood pressure cuff to your next visit. documented in this encounter Progress Notes * Carlos Manuel [place] MD - 06/19/2024 2:00 PM EST Images from the original note were not included. Patient Name: Eliza Bunch, Female Date of : 1950, 74 y.o. Date: 06/19/24 [] New Patient [x] Established Patient [] New Hospital Follow Up [] Established Hospital Follow Up [] Telemed Visit [] H&P Referring MD: No primary care provider on file. PCP: Joseph Valencia MD Reason For Visit: HTN, Primary Hyperparathyroidism, Recurrent Kidney Stones Eliza Bunch is a 74 y.o. female seen today in [facility] OV re: -HTN: mult med intolerances -hyperCa and w/u c/w primary hyperpara now s/p parathyroidectomy 10/2023 -leg edema C/O flare of her IBS and has cont f/u with GI and also card as she had incr HR and HTN that they are manageing. Meds as noted Most recent labs 03/2024 noted The following portions of the patient's chart were reviewed in this encounter and updated as appropriate: Allergies Meds Problems Constitutional: Negative for chills and fever. HENT: Negative for congestion, ear pain, hearing loss and sore throat. Eyes: Negative for pain and discharge. Respiratory: Negative for cough, shortness of breath and wheezing. Cardiovascular: Positive for leg swelling. Negative for chest pain and palpitations. Gastrointestinal: Negative for abdominal pain, blood in stool, constipation, diarrhea, nausea and vomiting. Genitourinary: Negative for dysuria, frequency, hematuria and urgency. Musculoskeletal: Negative for back pain, myalgias and neck pain. Skin: Negative for rash. Neurological: Negative for dizziness, tremors and headaches. Endo/Heme/Allergies: Negative for polydipsia. Does not bruise/bleed easily. Full 13 point review of systems unremarkable except as noted above. Past Medical History: Diagnosis Date Essential hypertension Osteoporosis No past surgical history on file. Social History Tobacco Use Smoking status: Never Smokeless tobacco: Not on file Substance Use Topics Alcohol use: Never No family history on file. Current Outpatient Medications Medication Sig Dispense Refill albuterol 1.25 MG/3ML nebulizer solution INHALE CONTENTS OF 1 AMP VIA NEBULIZER EVERY 4-6 HOURS NEEDED FOR WHEEZING OR SHORTNESS OF BREATH ALPRAZolam (XANAX) 0.5 MG tablet TAKE 1/2 TABLET BY MOUTH 3 TIMES A DAY NEEDED (Patient taking differently: Take 0.5 mg by mouth in the morning and 0.5 mg at noon and 0.5 mg in the evening and 0.5mg before bedtime.) aMILoride (MIDAMOR) 5 MG tablet Take 1 tablet (5 mg total) by mouth 1 (one) time each day 90 tablet0 aspirin (ST JASON) 81 MG EC tablet Take 81 mg by mouth in the morning. carvedilol (COREG) 3.125 MG tablet Take 2 tablets (6.25 mg total) by mouth in the morning and 2 tablets (6.25 mg total) in the evening. Take with meals. 360 tablet 1 dilTIAZem CD (CARDIZEM CD) 180 MG 24 hr capsule Take 180 mg by mouth 1 (one) time each day doxycycline (VIBRA-TABS) 100 MG tablet furosemide (LASIX) 20 MG tablet Take 40 mg by mouth 1 (one) time each day For 30 days Note : Pt is taken 40 mg in the morning letrozole (FEMARA) 2.5 MG chemo tablet mesalamine (CANASA) 1000 MG suppository UNWRAP AND INSERT 1 SUPPOSITORY AT BEDTIME RECTALLY EVERY NIGHT FOR 30 DAY(S) omeprazole (PriLOSEC) [address] capsule Take 20 mg by mouth potassium chloride (MICRO-K) 10 MEQ CR capsule TAKE 2 CAPSULES (20 MEQ TOTAL) BY MOUTH 1 (ONE) TIMEEACH DAY PT TAKEN IT 2 TIMES A DAY 180 capsule 0 carvedilol (Coreg) 12.5 MG tablet Take 1 tablet (12.5 mg total) by mouth in the morning and 1 tablet (12.5 mg total) in the evening. Take with meals. (Patient not taking: Reported on 06/19/2024) 180 tablet 3 No current facility-administered medications for this visit. Allergies Allergen Reactions Codeine GI intolerance Nausea Ipratropium Other (see comments) Penicillins Other (see comments) Sulfacetamide Other (see comments) Sulfate Other (see comments) Objective: There were no vitals filed for this visit. No results found for: EGFRAFR Est GFR Non Date Value Ref Range Status 07/05/2023 93 ML/MIN/1.73 M2 Final Comment: Creatinine based estimated glomerular filtration (eGFR) in adults is calculated using the National [employer] recommended 2020 CKD-EPI equation. Estimates GFR from serum creatinine, age and sex. Testing performed or reported by [facility], a Service of [facility], [address] [place] [id number] Quentin Almeida MD, Fuel Cell Test Engineer [facility]# [id number] Chemistry Lab Units 04/03/24 16112/13/23 1623 07/05/23 1604 06/04/23 1707 04/19/23 1617 CREATININE mg/dL 0.62 0.74 0.6 0.6 0.6 BUN mg/dL 13 15 14 16 13 BUN / CREAT RATIO -- -- -- -- EGFRNAFR ML/MIN/1.73 M2 -- -- 93 93 94 GLUCOSE mg/dL 87 -- 95 113* 78 POTASSIUM mmol/L 4.5 4.8 4.0 3.3* 4.9 SODIUM mmol/L 143 142 143 144 145 CO2 mmol/L 21 29 25 30* 33* CHLORIDE mmol/L 106 108 108* 103 107 ALBUMIN g/dL 4.2 -- 3.9 4.3 4.3 Bone Mineral Lab Units 04/03/24 1613 12/13/23 1623 12/10/23 1554 07/05/23 1604 06/04/23 1707 04/19/23 1617 04/19/23 1615 CALCIUM mg/dL 9.1 9.4 9.6 9.5 9.7 10.3 -- PHOSPHORUS mg/dL 3.4 -- 3.0 2.8 2.9 2.2* -- MAGNESIUM mg/dL 2.2 -- -- -- 2.0 -- -- PTH pg/mL 30 -- -- -- -- -- 88* VITAMIN D NG/ML -- -- -- -- -- 65.7* -- VIT D 25 HYDROXY ng/mL 33.5 -- -- -- -- -- -- CBC Lab Units 04/03/24 1613 WBC AUTO x10E3/uL 9.2 RBC AUTO x10E6/uL 4.19 MCV fL 96 HEMATOCRIT % 40.1 HEMOGLOBIN g/dL 13.2 PLATELETS AUTO x10E3/uL 266 Urine Lab Units 04/03/24 1613 PROT/CREAT RATIO UR mg/g creat 110 ALB MG/G CREAT UR mg/g creat 36* Urine Lab Units 04/03/24 1613 06/04/23 1706 PH U 6.0 6.0 COLOR U Yellow -- GLUCOSE UR Negative NEGATIVE KETONES U MG/DL -- NEGATIVE WBC UR HPF /hpf 0-5 3 RBC UR HPF /hpf None seen 1 PROTEIN UR mg/dL 4.0 -- UROBILINOGEN U MG/DL MG/DL -- NORMAL UROBILINOGEN UA mg/dL 0.2 -- PLAN: Assessment & Plan 1. Personal history of kidney stones 2. Essential (primary) hypertension 74 Y/O F HTN HYPERPARATHYROIDISM AND RECURRENT KIDNEY STONES S/P PTX HTN: h/o suboptimal conctrolled; goal < 130/80; better per PT HBPs; still her current meds unclear Edema: improved per PT; ques cardaic vs liver vs there; Nsyn has been r/o Primary Hyperpara s/p parathyroidectomy PLAN: need updat on meds; titrate up her BP meds as well again once we get updated med list; repeatlabs to trak K and Ca level No orders of the defined types were placed in this encounter. No follow-ups on file. Carlos Manuel [place] MD documented in this encounter Plan of Treatment Upcoming Encounters Date Type Department Care Team (Late st Contact Info) Description 08/11/2024 3:15 PM EDT Office Visit [facility] [address] [place] [phone] Carlos Manuel [place] MD [address] [facility] [address] [place] [address] documented as of this encounter Visit Diagnoses Diagnosis Personal history of kidney stones- Primary Essential (primary) hypertension documented in this encounter Care Teams Mixing Picker Tender Relationship Specialty Start Date End Date Joseph Valencia MD [address] [place] [address] [id number] [place] PCP - General Internal Medicine 08/02/23 documented as of this encounter
--- OUTSIDE RECORDS SUMMARY | 2024-07-01 13:50 | XMS_ITS ---
Author Organization [facility] Address [address] [place] [address] Care Team Providers Care Oil Transport Driver Name Role Phone Joseph Valencia MD Primary Care Provider UnavailGeorge Ferguson Unavailable [phone] George Dias MD Unavailable Unavailable ALLERGIES Allergen (clinical drug ingredient) Drug/Non Drug Allergy documented on EMR Reaction Allergy Type Onset Date Status codeine Codeine Unknown Drug Allergy Active Substance with sulfonamide structure and antibacterial mechanism of action (substance) Sulfa (uncoded) Unknown Allergy Active Penicillin (uncoded) Unknown Allergy Active REASON FOR VISIT Patient presents today for ulcerative protocolitis MEDICATIONS Medication SIG (Take, Route, Frequency, Duration) Notes Start Date End Date Status Mesalamine 1000 MG 1 Rectal Nightly for 30 days Active Mesalamine 1.2 GM 4 Orally Once a day for 30 day(s) 02/02/2024 Active Furosemide 40 MG 1 tablet Orally Once a day Active Lialda 1.2 GM 4 Orally Once a day for 30 day(s) Please let my office know if the insurance is not covering this and we can try a different mesalamine product. Thanks 01/05/2024 Active dilTIAZem HCl ER Coated Beads 180 MG TAKE ONE CAPSULE BY MOUTH DAILY Oral for 90 Active Mesalamine 1000 MG 1 suppository at bedtime Rectal Every night at bedtime for 30 day(s) 07/20/2023 Active Albuterol Sulfate HFA 108 (90 Base) MCG/ACT Inhalation for 25 A ctive Letrozole 2.5 MG Oral for 90 A ctive Potassium Chloride ER 10 MEQ Oral for 90 Active Carvedilol 3.125 MG PLEASE SEE ATTACHED FOR DETAILED DIRECTIONS Oral for 90 Active Multivitamin - 1 tablet Orally Once a day for 30 day(s) Active Albuterol Sulfate (2.5 MG/3ML) 0.083% INHALE 1 VIAL EVERY 4 HOURS BY MOUTH NEEDED Inhalation for 25 Active Aspir-81 once a day Active Omeprazole 20 MG 1 Orally BID Active Iron Active ALPRAZolam 0.5 MG as directed Orally 4x a day Active Tylenol Extra Strength Active [email or web address] Colon Health Active Turmeric Active IMMUNIZATIONS Vaccine Route Administration Date Status Comme nts Influenza Unknown 06/11/2024 Refused SOCIAL HISTORY Tobacco [...] W/U Status Risk SNOMED Code Notes Problem Personal history of colonic polyps (Z86.010) Active confirmed History of polyp of colon (situation) (812493348) VITAL SIGNS BMI 24.96 kg/m2 06/11/2024 Blood pressure systolic 000 mm Hg 06/11/19 25 Blood pressure diastolic 00 mm Hg 025 Height 65 in 06/11/2024 Temperature 98.6 degrees Fahrenheit 06/11/19 25 Weight 150 lbs 06/11/2024 Encounters Encounter Location Date Provider Diagnosis [facility] [address] [place] [address] 06/11/2024 George Wendy Ulcerative colitis K51.90 ; Encounter for screening for malignant neoplasm of colon Z12.11 and Personal history of colonic polyps Z86.010 ASSESSMENTS Encounter Date Diagnosis Assessment Notes Treatment Notes Treatment Clinical Notes 06/11/2024 Ulcerative colitis (ICD-10 - K51.90) Start back on two of the 1.2 Gm Mesalamine piils every day. Avoid all NSAIDs like Advil, Ibuprofen, etc. Tylenol is fine to use. We will repeat a colonoscopy in the Fall, 2025 06/11/2024 Encounter for screening for malignant neoplasm of colon (ICD-10 - Z12.11) 06/11/2024 Personal history of colonic polyps (ICD-10 - Z86.010) PLAN OF TREATMENT Treatment Notes Assessment Notes Ulcerative colitis Start back on two of the 1.2 Gm Mesalamine piils every day. Avoid all NSAIDs like Advil, Ibuprofen, etc. Tylenol is fine to use. We will repeat a colonoscopy in the 2024 Next Appt Details Follow Up: October,, Garret n: Provider Name:George Nguyen , 10/15/2024 04:20:00 PM, [address] [place] [address], [address], [place], [address], Progress Notes * Examination Category Sub-Category Detail Notes General Examination GENERAL APPEARANCE: pleasant , well nourished, well developed, in no acute distress HEAD: EYES: sclera non-icteric EARS: NOSE: THROAT: NECK/THYROID: no cervical lymphade nopathy, neck supple HEART: S1, S2 normal CHEST: LUNGS: clear to auscultatio n bilaterally ABDOMEN: normal bowel sounds, no guarding or rigidity, no guarding or rigidity, no masses palpable, soft, nontender, nondistended NEUROLOGIC: alert and oriented SKIN: nonjaundiced, no spi amber angiomata EXTREMITIES: no edema PERIPHERAL PULSES: BACK: BREASTS: MUSCULOSKELETAL: MALE GENITOURINARY: LYMPH NODES: RECTAL EXAM: FEMALE GENITOURINARY: ORAL CAVITY: mucosa moist
--- OUTSIDE RECORDS SUMMARY | 2024-07-01 13:50 | XMS_ITS ---
Author Organization George Dias III, MD Address [address] [place] [address] Care Team Providers Care Focused Factory Manager Name Role Phone Joseph Valencia MD Primary Care Provider George Ren Unavailable [phone] Allergies Allergen (clinical drug ingredient) Drug/Non Drug [...] Date Provider Diagnosis George Dias III, MD [address] [place] [address] [place] [address] 03/07/2024 George Dias Ductal carcinoma in situ [...] Her reflux symptoms are well controlled with [id number] medication. 03/07/2024 Former smoker (ICD-10 - Z87.891) [...] cancer. Provider Name:George Dias, 09/09/2024 04:00:00 PM, [address] [place] [address] [address] [place] [address], [place], [phone], Progress Notes * DAJA PEACE PDOB: (74 yo F)Acc No.[id number]:03/07/2024 Progress Notes Patient:?MARLIN PEACE P Provider:?George Dais MD :1950???Age:74 Y???Sex:Female D ate:03/07/2024 Address:[address] [place], [place] [address]PETRA , PATRICK Morales [phone] Pcp:Joseph Valencia MD Subjective: * Chief Complaints: [...] trying to get in touch with her process safety management engineer, Dr. Zee, to discuss her heart condition [...] Lumpectomy and sentinel node biopsy left breast, [facility], Dr. Mixon 1Breast cancer surgery in 2021 [...] :Her reflux symptoms are well controlled with tnlh-qpx-cifslvy medication.???5.?Former smoker - Z87.891???Notes :She has been [...] Dias MD Date:?02/12 Generated for Andrei sabrina/Rozina/eTransmitting on:?07/01/2024 08:31 AM EST History and Physical Notes * HPI (History of Present Illness) Category Sub-Category Detail Notes COVID-19 Screening Questions Have you had any new onset fever, chills, cough, congestion, sore throat, shortness of breath, muscle aches?: No Have you been exposed to the virus withi n the last 10 days?: No Have you travelled internationally in [facility] last 10 days?: No Have you [...]
--- OUTSIDE RECORDS SUMMARY | 2024-07-01 13:51 | XMS_ITS ---
Author Organization [facility] Address [address] [place] [address] Care Team Providers Care Loan Interviewer Mortgage Name Role Phone Joseph Valencia MD Primary Care Provider UnavailGeorge Ferguson Unavailable [phone] George Dias MD Unavailable REASON FOR VISIT mesalamine Encounters Encounter Location Date Provider Diagnosis [facility] [address] [facility] [address] [place] [address] 04/02/2024 George Nguyen PLAN OF TREATMENT Next Appt Details Provider Name:George Nguyen , 10/15/2024 04:20:00 PM, [address] [facility], [address], [place], [address],
== END 2024-07-01 12:58 | disposition home or self-care (01) ==
LOC: HO.US 12:57
PROVIDERS: PCP Internal Medicine; Visit Provider Nurse Practitioner Family
DX: N20.0 Calculus of kidney (principal)
CPT/HCPCS: 76775

== ENCOUNTER → 2024-07-01 12:59 | Outpatient (BNV) | payer MEDICARE, SELFPAY | PROVIDERS: PCP Internal Medicine; Visit Provider Radiology Diagnostic Radiology | DX: N20.0 Calculus of kidney (principal) | CPT/HCPCS: 76775 ==

== ENCOUNTER 2024-07-08 15:56 | Outpatient (AMB) | payer MEDICARE, SELFPAY ==
--- NOTE | 2024-07-08 15:56 | A.OFFVIS_ITS ---
Intake Visit Reasons: US f/u(set) Intake Note: Patient presents today for tele visit follow up on: Nephrolithiasis and ultrasound results Imaging Completed: 07/01/24 Urology Medications: none Antibiotic Allergy: Penicillins, Sulfamethoxazole Blood Thinner: Aspirin Attendant Campground Required: No Allergies codeine Allergy (Severe, Verified 07/08/24 16:55) nausea eplerenone Allergy (Severe, Verified 07/08/24 16:55) Gastrointestinal Upset Penicillins Allergy (Severe, Verified 07/08/24 16:55) Anaphylaxis sulfamethoxazole [From BACTRIM] Allergy (Severe, Verified 07/08/24 16:55) HIVES/RASH/SWELLING tamsulosin Adverse Reaction (Severe, Verified 07/08/24 16:55) cardiac Medication List - Last Reconciled 07/08/24 by LIZBETH Stanford acetaminophen 1,000 mg PO Q6H PRN albuterol sulfate 90 mcg/actuation 2 puffs inhalation Q4-6H PRN albuterol sulfate 90 mcg/actuation (Ventolin HFA) 2 puffs inhalation Q4-6H PRN 30 days albuterol sulfate 2.5 mg (6 mL) inhalation Q4-6H PRN 30 days alprazolam 0.25 mg PO TID PRN aspirin (Adult Aspirin Regimen) 81 mg PO DAILY carvedilol 6.25 mg PO BID clobetasol 0.05% 1 appl topical DAILY diltiazem HCl CD 180 mg PO DAILY ferrous sulfate 28 mg PO DAILY fluticasone propion-salmeterol 250-50 mcg/dose (Wixela Inhub) 1 ea inhalation BID 30 days furosemide 40 mg PO ONCE inhalational spacing device (BreatheRite MDI Spacer) As directed letrozole 2.5 mg PO DAILY mesalamine 4.8 grams PO DAILY multivitamin 1 tab PO DAILY omeprazole 20 mg PO BID potassium chloride ER 40 mEq PO BID tiotropium bromide (Spiriva with HandiHaler) 1 cap inhalation DAILY 30 days HPI Comments Details: Eliza is a very pleasant 74-year-old female patient of Dr. Valencia. She has a past medical history of breast cancer, hypertension, hypercholesteremia, hiatal hernia, nephrolithiasis, arthritis, anxiety, hypothyroidism, lung cancer, GERD, asthma, and pulmonary hypertension. She is being followed up on today via telehealth for her history of nephrolithiasis. In discussion with the patient today she reports to be doing and feeling well. Recent renal imaging results reviewed with the patient today. 07/08 findings suggestive of right ureteropelvic junction stenosis with large stone measuring a proximally 13 mm. Bilateral intrarenal stones. When asked she currently denies any bothersome urinary issues. She does report intermittent episodes of bilateral flank pain however feels these episodes are infrequent. Patient with a longstanding history of nephrolithiasis requiring surgical intervention. Patient underwent left-sided ureteroscopy with Dr. Hammer 10/04 for a 6 mm left UVJ stone followed by in office cystoscopy with left-sided ureteral stent removal shortly after. She has a previous history of ESWL in 2012. We discussed at length potential causes of nephrolithiasis. We discussed obtaining CT KUB for further assessment evaluation. She denies incontinence, nocturia, hematuria, dysuria, foul smelling urine, changes to urinary stream, flank pain, fever, and or chills. She is happy with her current voiding parameters. [facility] Medical History Breast cancer Essential hypertension Hypercalcemia Slow to wake up after anesthesia Hx of radiation therapy Hiatal hernia PONV (postoperative nausea and vomiting) Anemia History of kidney stones Proctitis Arthritis Anxiety Hyperparathyroidism Lung cancer GERD (gastroesophageal reflux disease) Asthma-COPD overlap syndrome Pulmonary hypertension Surgical History History of parathyroidectomy H/O cataract extraction Hx of cardiac catheterization Hx of varicose vein ligation and stripping History of lumpectomy of both breasts History of right inguinal hernia repair History of lithotripsy History of lobectomy of lung Hx of colonoscopy History of esophagogastroduodenoscopy Family History Mother Breast cancer Social History Household Members: Family Household Members Other:: Sister Are you a primary child daycare worker to a significant other at home: Yes (Sister) Do you presently have visiting nurse or other home services: No Patient Tobacco Use Status: Former Tobacco user Tobacco use type: Cigarette Years Smoked: 31 Review of Systems Const Reports no additional complaints Eyes Reports no additional complaints ENT Reports no additional complaints Card Reports as per HPI Resp Reports as per HPI GI Reports as per HPI Reports as per HPI Musc Reports as per HPI Skin/Breast Reports as per HPI Neuro Reports no additional complaints Psych Reports no additional complaints Bo/Lymph Reports no additional complaints Aller/Immun Reports no additional complaints Physical Exam Const General: cooperative, healthy appearing, comfortable, no acute distress, well developed, alert and awake Orientation/consciousness: patient oriented x3 Resp Effort & Inspection: normal respiratory effort and able to speak in complete sentences Neuro General: patient oriented x3 Psych Appearance: grossly normal Mental Status: mental status grossly normal Speech and movement: Clear speech present Attitude: cooperative Thought process: Normal thought process present Thought content: Normal thought content present Insight: Fair insight present (Psych) Judgement: Fair judgement present (Psych) Telehealth Telehealth Telehealth Platform: Telephone Location of provider rendering services: practice address Location of patient: address on file Patient Identification confirmed using: Name, : Yes Telehealth method: video Patient verbally consented to treatment: Yes Patient verbally consented to billing insurance company: Yes Patient informed of any privacy concerns related to visit: Yes Minutes spent on Phone/Video with Pt.: 15 Results Reviewed Results Reviewed: Date of Service: 07/01/24 Procedure(s): US renal BI US Renal Comparison: None Findings: Right kidney 10.7 cm with for and 6 mm nonobstructing midpole stones. Marked dilatation of the right renal pelvis the proximal ureter suggesting a ureteropelvic junction stenosis with 6 x 13 x 9 mm stone. Left kidney at 11.1 cm. 7 mm lower pole stone. No hydronephrosis. Impression: Findings suggesting right ureteropelvic junction stenosis with large stone as above. Additional bilateral intrarenal stones. Suggest further correlation with CT urography. Assessment & Plan Assessment & Plan (1) Nephrolithiasis: Code(s): N20.0 - Calculus of kidney Category: Medical Plan Recent renal imaging results reviewed with the patient today; as noted above. She currently denies any bothersome urinary issues or concerns. She reports be happy with current voiding parameters. Discussed obtaining CT KUB for further assessment evaluation. Discussed, educated, and stressed the importance of adequate hydration in relation to nephrolithiasis as well as overall health and well-being. Follow-up in 1-2 weeks with imaging to be completed prior; or sooner with any issues, concerns, and or questions Orders: Orders CT kidney stone Today N20.0 - Calculus of kidney Patient Instructions: The patient had an opportunity to ask questions regarding the treatment plan. All questions were answered. Physical exam, labs, and imaging were discussed and reviewed in detail. As well as risks, benefits, and discussion of treatment choices. No major barriers to understanding were identified. The patient expressed understanding and agreement with the above treatment plan. The patient was made aware they should contact our office by phone for worsening of their current condition, the appearance of new symptoms, or with any questions or concerns. Compliance is encouraged with any medications and follow up testing that is ordered. It is a privilege to be allowed the opportunity to participate in? your urological care.? Again, if you have any questions or concerns If you have any questions or concerns please do not hesitate to contact me. The office is [phone]. This note is constructed using voice recognition software. While every effort has been made to ensure accuracy cloth doffer errors may have been included. Yours sincerely, LIZBETH Stanford Coding Level of Care Code Tele Est Pt Level 3 (87058) Diagnoses Nephrolithiasis N20.0
--- OUTSIDE RECORDS SUMMARY | 2024-07-08 19:34 | XMS_ITS | Encounter Summary ---
Author Organization [facility] Address [address] [place] [address] Phone Care Team Providers Care Chief Wharfinger Name Role Phone Joseph Valencia MD Primary Care Provider [phone] Encounter Details Date Type Department Care Team (Late st Contact Info) Description 06/19/2024 2:00 PM EST Telemedicine [facility] [address] [place] [phone] Carlos Manuel Wagoner MD [address] [address] Personal history of kidney stones [...] 74 y.o. female seen today in as [facility] OV re: -HTN: mult med intolerances [...] and sex. Testing performed or reported by [facility], a Service of [facility], [address] [place] [address] Quentin Almeida MD, Edge [employer] [facility]# [id number] Chemistry Lab Units 04/03/24 16112/13/23 1623 07/05/23 [...] Visit [facility] [address] [place] [address] Carlos Manuel Wagoner MD [address] [facility] [address] [place] [address] documented as of this encounter Visit Diagnoses Diagnosis Personal history of kidney stones- Primary Essential (primary) hypertension documented in this encounter Care Teams Chief Wharfinger Relationship Specialty Start Date End Date Joseph Valencia MD [address] [place] [address] [id number] [place] PCP - General Internal Medicine 08/02/23 documented as of this encounter
--- OUTSIDE RECORDS SUMMARY | 2024-07-08 19:34 | XMS_ITS | Clinical Summary ---
Author Organization [facility] Address [address] [facility] [address] [place] [address] Phone Care Team Providers Care Sales Estimator Name Role Phone Joseph Valencia MD Primary Care Provider [phone] Allergies Active Allergy Reactions Criticality Noted Date [...] EST Telemedicine [facility] [address] [place] [phone] Carlos Manuel Wagoner MD Personal history of kidney stones (Primary Dx); Essential (primary) hypertension 05/02/2024 Refill [facility] [address] [place] [address] Carlos Manuel Wagoner MD 05/02/2024 Refill [facility] [address] [place] [address] Carlos Manuel Wagoner MD 04/17/2024 Office Communication [facility] [address] [facility] [address] [place] [address] [place], Igd[place] from Last 3 Months Immunizations Name Administration [...] Visit [facility] [address] [place] [address] Carlos Manuel Wagoner MD [address] [facility] [address] [place] [address] Health Maintenance Due Date Last [...] on patient's age to complete this topic Insurance Care Teams Sales Estimator Relationship Specialty Start Date End Date oJseph Valencia MD [address] [place] [address] [address] [place], [place] PCP - General Internal Medicine 08/02/23
--- OUTSIDE RECORDS SUMMARY | 2024-07-08 19:34 | XMS_ITS ---
Author Organization George Dias III, MD Address [address] [place] [address] Care Team Providers Care Agricultural Equipment Sales Manager Name Role Phone Joseph Valencia MD Primary Care Provider George Ren Unavailable [phone] Allergies Allergen (clinical drug ingredient) Drug/Non Drug [...] Date Provider Diagnosis George Dias III, MD [address] [place] [address] [place] [address] 09/03/2023 George Dias Ductal carcinoma in situ [...] Her reflux symptoms are well controlled with lboo-rxz-xofphbz medication. 09/03/2023 Essential hypertension (ICD-10 - I10) [...] OV Provider Name:George Dias, 09/09/2024 04:00:00 PM, [address] [place] [address] [address] [place], [place], [address], Progress Notes * DAJA PEACE PDOB: (73 yo F)Acc No.[id number]:09/03/2023 Progress Notes Patient:?MARLIN PEACE L P Provider:?George Dias MD :1950???Age:73 Y???Sex:Female D ate:09/03/2023 Address:[address] [place], [place] [phone] Pcp:Joseph Valencia MD Subjective: * Chief Complaints: [...] referred to endocrinology. She is seeing a skills instructor as well as a vascular surgeon for [...] Lumpectomy and sentinel node biopsy left breast, [facility], Dr. Mixon 04/2021 * Hospitalization/Major Diagno [...] Her reflux symptoms are well controlled with jtrz-iaw-adwymcx medication.?7.?Essential hypertension - I10, Her blood pressure [...] Dias MD Date:?08/13 Generated for Pina bennett/Rozina/eTransmitting on:?07/08/2024 07:34 PM EST History and Physical Notes * HPI (History of Present Illness) Category Sub-Category Detail Notes COVID-19 Screening Questions Have you had any new onset fever, chills, cough, congestion, sore throat, shortness of breath, muscle aches?: No Have you been exposed to the virus withi n the last 10 days?: No Have you travelled internationally in [facility] last 10 days?: No Have you [...]
--- OUTSIDE RECORDS SUMMARY | 2024-07-08 19:35 | XMS_ITS ---
Author Organization George Dias III, MD Address [address] [address] Care Team Providers Care Freight Air Brake Fitter Name Role Phone Joseph Valencia MD Primary Care Provider George Ren Unavailable [phone] Allergies Allergen (clinical drug ingredient) Drug/Non Drug [...] Provider Diagnosis George Dias III, MD [address] [place] [address] [place] [address] 03/07/2024 George Dias Ductal carcinoma in situ [...] Her reflux symptoms are well controlled with yatj-fhl-bkhjtbs medication. 03/07/2024 Former smoker (ICD-10 - Z87.891) [...] cancer. Provider Name:George Dias, 09/09/2024 04:00:00 PM, [address] [place] [address] [address] [place] [address], [place], [address], Progress Notes * DAJA PEACE PDOB: (74 yo F)Acc No.[id number]:03/07/2024 Progress Notes Patient:?MARLIN PEACE P Provider:?George Dias MD :1950???Age:74 Y???Sex:Female D ate:03/07/2024 Address:[address] [place], [place] [address] , [phone] Pcp:Joseph Valencia MD Subjective: * Chief Complaints: [...] trying to get in touch with her scada engineer, Dr. Zee, to discuss her heart [...] Lumpectomy and sentinel node biopsy left breast, [facility], Dr. Mxion 1Breast cancer surgery in 2021 2021 * [...] :Her reflux symptoms are well controlled with wpwm-cpl-rznrumi medication.???5.?Former smoker - Z87.891???Notes :She has been [...] Dias MD Date:?02/12 Generated for Andrei sabrina/Rozina/eTransmitting on:?07/08/2024 07:35 PM EST History and Physical Notes * [...]
--- OUTSIDE RECORDS SUMMARY | 2024-07-08 19:35 | XMS_ITS ---
Author Organization [facility] Address [address] [place] [phone] Care Team Providers Care Production Quality Manager Name Role Phone Joseph Valencia MD Primary Care Provider UnavailGeorge Ferguson Unavailable [phone] George Dias MD Unavailable Unavailable ALLERGIES Allergen [...] a day Active Tylenol Extra Strength Active SustainX Colon Health Active Turmeric Active IMMUNIZATIONS Vaccine [...] confirmed History of polyp of colon (situation) (271424150) VITAL SIGNS Temperature 98.6 degrees Fahrenheit 06/11/19 25 Blood pressure systolic 000 mm Hg 06/11/19 25 Blood pressure diastolic 00 mm Hg 025 Height 65 in 06/11/2024 Weight 150 lbs 06/11/2024 BMI 24.96 kg/m2 06/11/2024 Encounters Encounter Location Date Provider Diagnosis [facility] [address] [place] [address] 06/11/2024 George Wendy Ulcerative colitis K51.90 ; [...] Provider Name:George Nguyen , 10/15/2024 04:20:00 PM, [address] [place] [address], [address], [place], [address], Progress Notes * Examination Category Sub-Category Detail [...]
--- OUTSIDE RECORDS SUMMARY | 2024-07-08 19:35 | XMS_ITS ---
Author Organization [facility] Address [address] [place] [address] Care Team Providers Care Sulfuric Acid Plant Supervisor Name Role Phone Joseph Valencia MD Primary Care Provider Merle Lopez [phone] Encounters Encounter Location Date Provider Diagnosis [address] [address] 11/06/2023 Merle Parker Plan Of Treatment No Information Progress Notes * Eliza RINCON PDOB: (74 yo F)Acc No.[id number]:11/06/2023 Progress Notes Patient:?Eliza RINCON Provider:?Merle Parker DPM :1950???Age:73 Y???Sex:Female D ate:11/06/2023 Address:[address] [place], [place] [phone] Pcp:Joseph Valencia MD Subjective: * Chief Complaints: [...] Parker DPM Date:? Generated for Pina bennett/Rozina/eTransmitting on:?07/08/2024 07:34 PM EST
--- OUTSIDE RECORDS SUMMARY | 2024-07-08 19:35 | XMS_ITS | Patient Health Record ---
Author Organization [facility] Address [address] [place] [address] Care Team Providers Care Roll Machine Operator Name Role Phone Joseph Valencia MD Primary Care Provider George Reese Unavailable [phone] George Dias MD Unavailable Unavailable ALLERGIES Allergen (clinical drug ingredient) Drug/Non Drug Allergy documented on EMR Reaction Allergy Type Onset Date Status codeine Codeine Unknown Drug Allergy Active Substance with sulfonamide structure and antibacterial mechanism of action (substance) Sulfa (uncoded) Unknown Allergy Active Penicillin (uncoded) Unknown Allergy Active RESULTS Component Value Reference Range Notes Pathology Reviewed date:01/17/2024 02:55:38 PM Interpretation: Performing Lab:[facility], [address] [place] [phone] Notes/Report: REASON FOR REFERRAL No Information MEDICATIONS [...] W/U Status Risk SNOMED Code Notes Problem Epigastric abdominal pain (R10.13) Active confirmed 55179522 Problem Encounter for screening for malignant neoplasm of colon (Z12.11) Active confirmed Screening for malignant neoplasm of colon (607001357) Problem Personal history of colonic polyps (Z86.010) Active confirmed History of poly p of colon (situation) (326600436) Problem Diverticulosis of large intestine without perforation or abscess without bleeding (K57.30) Active confirmed Diverticul ar disease of colon (418600085) Problem Gastroesophageal reflux disease, esophagitis presence not specified (K21.9) Active confirmed 992796190 Problem Rectal bleed (K62.5) Active confirmed 52761061 Problem 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 Benign neoplasm of colon (47271464) Problem Ulcerative colitis (K51.90) Active confirmed Ulcerative colitis (50517470) Problem 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) Active confirmed Pro ctitis (9169676) Problem Diverticulosis of colon (K57.30) Active confirmed Diverticulosi s of colon (327557846) VITAL SIGNS Temperature 98.6 degrees Fahrenheit 06/11/2024 Blood pressure diastolic 00 mm Hg 06/11/2024 Height 65 in 06/11/2024 Blood pressure systolic 000 mm Hg 06/11/2024 Weight 150 lbs 06/11/2024 BMI 24.96 kg/m2 06/11/2024 Encounters Encounter Location Date Provider Diagnosis [facility] [address] [place], [place] [phone] 01/04/2024 George Nguyen Colon cancer screeni ng Z12.11 ; Colon polyps K63.5 ; Ulcerative colitis K51.90 and Diverticulosis of large intestine without perforation or abscess without bleeding K57.30 [facility] [address] [place] [address] 09/26/2023 George Nguyen Rectal bleed K62.5 ; Gastroesophageal reflux disease, esophagitis presence not specified K21.9 ; Tubulovillous adenoma of colon K63.5 ; Proctitis K62.89 and Encounter for screening for malignant neoplasm of colon Z12.11 [facility] [address] [place] [address] 06/11/2024 George Nguyen Ulcerative colitis K51.90 ; Encounter for screening for malignant neoplasm of colon Z12.11 and Personal history of colonic polyps Z86.010 [facility] [address] [place] [address] 07/19/2023 George Nguyen [facility] [address] [place] [address] 10/23/2023 George Nguyen [facility] [address] [place] [address] 12/31/2023 George Nguyen [facility] [address] [place] [address] 01/03/2024 George Nguyen [facility] [address] [place] [address] 01/05/2024 George Nguyen [facility] [address] [place] [address] 02/02/2024 [facility] [address] [place] [address] 02/06/2024 George Nguyen [facility] [address] [place] [address] 02/11/2024 George Nguyen [facility] [address] [place] [address] 03/05/2024 George Nguyen [facility] [address] [place] [address] 04/02/2024 George Nguyen [facility] [address] [place] [address] 06/17/2024 George Nguyen ASSESSMENTS Encounter Date Diagnosis [...] , 10/15/2024 04:20:00 PM, [address] [facility], [address], [place], [address], Insurance Providers Payer Name Payer Address Payer Phone Subscriber Number Group Number Insured Name Patient Relationship to Insured Coverage Start Date Coverage End Date [facility] [address] [place] [address] [phone] [id number] DAJA YOUNG Self - patient is the insured MEDICAL (GENERAL) HISTORY Medical History History ICD Code Lung cancer - 1998--Removed upper right lobe Breast cancer-1998 Left--surgery and XRT ; and 03/2019 Right--surgery and XRT GERD Overactive parathyroid Anxiety Arthritis Colonoscopy in 2004 was neg. except for a hyperplastic polyp Denies [place],DM,CVA,renal disease COPD Colonscopy in 01/2020 with a [...] [place]onte 01/2023 Parathyroid surgery scheduiled for at [facility]--Dr. Arroyo
--- OUTSIDE RECORDS SUMMARY | 2024-07-08 19:35 | XMS_ITS | Patient Health Record ---
Author Organization George Dias III, MD Address [address] [place] [address] Care Team Providers Care Distribution Center Administrator Name Role Phone Joseph Valencia MD Primary Care Provider George Ren Unavailable [phone] Allergies Allergen (clinical drug ingredient) Drug/Non Drug Allergy documented on EMR Reaction Allergy Type Onset Date Status sulfacetamide Sulfacetamide Unknown Drug Allergy Active Penicillin Unknown Drug Allergy Active codeine Codeine stomach upset Drug Allergy Act janet Results Component Value Reference Range Notes Complete Blood Count Auto Di ff Reviewed date:02/11/2024 08:40:31 AM Interpretation: Performing Lab:[facility], [address] [place] [address] Notes/Report: White Blood Count 8.6 4.8-10.8 X10*3/uL [...] Panel Reviewed date:02/11/2024 08:40:31 AM Interpretation: Performing Lab:[address] [address] Notes/Report: Sodium 141 135-145 mmol/L Potassium 4.0 3.3-5.1 mmol/L Chloride 109 96-108 mmol/L Carbon Dioxide 24 22-29 mmol/L Anion Gap 12 12-20 Blood Urea Nitrogen 12 9-16 mg/dL Creatinine 0.64 0.5-1.4 mg/dL Estimated Glomerular Filt Rate > 60 NOTE: For -Bruneian individuals, multiply the result by 1.210. Chronic [...] Random Reviewed date:02/11/2024 08:40:31 AM Interpretation: Performing Lab:[address] [address] Notes/Report: RECEIVED Creatinine Urine 69.30 Microalbumin Urine 26.0 Microalbum/Creatinine Ratio Ur 37.5 <30 ug/mg cr Albumin/Creatinine Ratio Reference Ranges: Normal: < 30 ug/mg creatinine Microalbuminuria: 30 - 300 ug/mg creatinine Clinical Albuminuria: > 300 ug/mg creatinine Hemoglobin A1c Reviewed date:02/11/2024 08:40:31 AM Interpretation: Performing Lab:[facility], [address] [place] [address] Notes/Report: Hemoglobin A1c % 5.6 <6.0 % [...] average glucose, using the formula of the [id number] Average Glucose study (ADAG), Diabetes Care, Vol.31,#8, [...] Problem Status W/U Status Risk Notes Problem 6018082 Former smoker (Z87.891) Active confirmed She has been abstinent since 1998. She has a plan to prevent relapse in times of stress and illness. Problem Fibromyalgia (267603812) Fibromyalgia (M79.7) Active confirmed Her symptoms ar e stable and unchanged. Problem 207652141 Overweight (E66.3) Active confirmed This problem duron s resolved and will be removed from her problem list Problem 77498856 Allergy to sulfa drugs (Z88.2) Active confirmed Problem 542060703 GERD without esophagitis (K21.9) Active confirmed Her reflux symptoms are well controlled with fuov-hiz-qobgvhu medication. Problem 36097966 Essential hypertension (I10) Active confirmed Her blood pressure is 134/71. She is stable and no change in her regimen was needed. I recommended continued sodium restriction. Problem 68009673 Penicillin allergy (Z88.0) Active confirmed Problem 353957111040006 Hematochezia (K92.1) Active confirmed #4 days. She isn't visible streaks of red blood in her stool. She will be referred to her gastroenterologi st for colonoscopy. 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 Problem 68208331941687189 Adenocarcinoma of right lung (C34.91) Active confirmed There was no sign of her recurrent cervical new primary today. Problem 106715688 Renal cyst (N28.1) Active confirmed Diagnosis will be followed. 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 She has begun on anastrozole. She will have a radiation therapy consultation. Because of diffuse aches and pains. We have temporarily stopped anastrozole. Problem Psoriatic arthritis (751810923) Psoriatic arthritis (L40.50) Active confirmed She has [...] Date Provider Diagnosis George Dias III, MD [address] [place] [address] [place] [address] 09/03/2023 George Dias Ductal carcinoma in situ (DCIS) of right breast D05.11 ; Ductal carcinoma in situ (DCIS) of left breast D05.12 ; Overweight E66.3 ; Fibromyalgia M79.7 ; Hyperglycemia R73.9 ; GERD without esophagitis K21.9 ; Essential hypertension I10 ; Former smoker Z87.891 ; Psoriatic arthritis L40.50 and Adenocarcinoma of right lung C34.91 George Dias III, MD [address] [place] [address] [place] [address] 03/07/2024 George Dias Ductal carcinoma in situ (DCIS) of right breast D05.11 ; Ductal carcinoma in situ (DCIS) of left breast D05.12 ; Essential hypertension I10 ; GERD without esophagitis K21.9 ; Former smoker Z87.891 and Fibromyalgia M79.7 George Dias III, MD [address] [place] [address] [place] [address] 09/12/2023 George Dias Assessments Encounter Date Diagnosis [...] Her reflux symptoms are well controlled with mfqi-kny-mewijgg medication. 09/03/2023 Hyperglycemia (ICD-1 0 - R73.9) Her blood pressure is controlled and no change in her regiimen as needed. 03/07/2024 Former smoker (ICD-1 0 - Z87.891) She has been abstinent since 1998. She has a plan to prevent relapse in times of stress and illness. 09/03/2023 GERD without esophagitis (ICD-10 - K21.9) Her reflux symptoms are well controlled with crgk-glj-hloabei medication. 03/07/2024 Fibromyalgia (ICD-10 - M79.7) Her [...] Details Provider Name:George Dias, 09/09/2024 04:00:00 PM, [address] [place] [address] DR, [address], [place], [address], Insurance Providers Payer Name Payer Address Payer Phone Subscriber Number Group Number Insured Name Patient Relationship to Insured Coverage Start Date Coverage End Date [facility] [address] [place] [facility] LYSSA FRAUSTO [phone] [id number] DAJA POWELL Self - patient is the [...] l right kidney former smoker since 1998 [id number] son [id number] invasive ductal carcinoma left breast April [id number] [...] Lumpectomy and sentinel node biopsy left breast, [facility], Dr. Mixon 04/2021 Breast cancer surgery in 2021 2021
--- OUTSIDE RECORDS SUMMARY | 2024-07-08 19:36 | XMS_ITS ---
Author Organization [facility] Address [address] [place] [address] Care Team Providers Care Sane Rn Name Role Phone Joseph Valencia MD Primary Care Provider UnavailGeorge Ferguson Unavailable [phone] George Dias MD Unavailable REASON FOR VISIT mesalamine Encounters Encounter Location Date Provider Diagnosis [facility] [address] [place] [address] 04/02/2024 George Nguyen PLAN OF TREATMENT Next Appt Details Provider Name:George Nguyen , 10/15/2024 04:20:00 PM, [address], [address], [place], [address],
--- OUTSIDE RECORDS SUMMARY | 2024-07-08 19:36 | XMS_ITS | Encounter Summary ---
Author Organization [facility] Address [address] [address] Phone Care Team Providers Care Senior Quality Analyst Name Role Phone Joseph Valencia MD Primary Care Provider Encounter Details Date Type Department Care Team (Latest Contact Info) Description 03/11/2024 Office Communication [facility] [address] [address] Carlos Manuel Wagoner MD [address] [address] Hypertensive heart and chronic kidney [...] Visit [facility] [address] [place] [address] Carlos Manuel Wagoner MD [address] [facility] [address] [place] [address] Scheduled Orders Name Type Priority [...] Magnesium 2.2 1.6 - 2.3 mg/dL [facility] Blood (Blood, Venous) 04/03/2024 4:13 PM EST 04/03/2024 us Carlos Manuel Wagoner MD LAB BLOOD ORDERABLES Final Re sult [facility] [address] [place] [address] * CBC (04/03/2024 4:13 PM EST) WBC 9.2 3.4 - 10.8 x10E3/uL [facility] Comment: Effective April 14, 2024 profile [id number] WBC will be made ??non-orderable as a stand-alone order code. RBC 4.19 3.77 - 5.28 x10E6/uL [facility] Hemoglobin 13.2 11.1 - 15.9 g/dL [facility] Hematocrit 40.1 34.0 - 46.6 % [facility] MCV 96 79 - 97 fL [facility] MCH 31.5 26.6 - 33.0 pg [facility] MCHC 32.9 31.5 - 35.7 g/dL [facility] RDW 12.8 11.7 - 15.4 % [facility] Platelets 266 150 - 450 x10E3/uL [facility] Blood (Blood, Venous) 04/03/2024 4:13 PM EST 04/03/2024 us Carlos Manuel Wagoner MD LAB BLOOD ORDERABLES Final Re sult [facility] [address] [place] [address] * Vitamin D 25 Hydroxy (04/03/2024 4:13 PM EST) Vitamin D, 25-OH, Total 33.5 30.0 - 100.0 ng/mL [facility] Comment: Vitamin D deficiency has been defined by the Imperial of Medicine and an Endocrine Society practice guideline as a level of serum 25-OH vitamin D less than 20 ng/mL (1,2). The Endocrine Society went on to further define vitamin D insufficiency as a level between 21 and 29 ng/mL (2). 1. IOM (Imperial of Medicine). 2010. Dietary reference ?? intakes for calcium and D. [place]aya [place]: The ?? National [employer]Spicy Horse [employer] Press. 2. Zaria MF, Xander NC, Tanika AGUILAR, et al. ?? Evaluation, treatment, and prevention of vitamin D ?? deficiency: an Endocrine Society clinical practice ?? guideline. JCEM. 2010; 96(7):1911-30. Blood (Blood, Venous) 04/03/2024 4:13 PM EST 04/03/2024 Carlos Manuel Wagoner MD LAB BLOOD ORDERABLES Final Re sult Performing Organization Address City/[facility]/ZIP Co de Phone Number [facility] [address] [place] [address] * Protein, Total, Random Urine w/Creatinine (Protein/Creat Ratio) (04/03/2024 4:13 PM EST) Creatinine, Ur 36.2 Not Estab. mg/dL [facility] Protein, Ur 4.0 Not Estab. mg/dL [facility] Urine Protein/Creatin ine Ratio 110 0 - 200 mg/g creat [facility] Urine (Urine, Clean Catch) 04/03/2024 4:13 PM EST 04/03/2024 Carlos Manuel Wagoner MD LAB URINE ORDERABLES Final Re [facility] Performing Organization Address City/[facility] Co de Phone Number [facility] [address] [place] [address] * (ABNORMAL) Urine Albumin / Creatinine Ratio (04/03/2024 4:13 PM EST) Urine Microalbumin 13.0 Not Estab. ug/mL [facility] Microalbumin/Crea tinine Ratio 36(H) 0 - 29 mg/g creat [facility] Comment: ? Normal: ?0 - ??29 ? Moderately increased: 30 - 300 ? Severely increased: ? >300 Urine (Urine, Clean Catch) 04/03/2024 4:13 PM EST 04/03/2024 Carlos Manuel Wagoner MD LAB URINE ORDERABLES Final Re sult [facility] [address] [place] [address] * (ABNORMAL) Urinalysis with microscopic (04/03/2024 4:13 PM EST) Specific [place], Urine 1.011 1.005 - 1.030 [facility] [phone] pH Urine 6.0 5.0 - 7.5 [facility] Color, Urine Yellow Yellow [facility] [phone] Appearance Urine Clear Clear [facility] [phone] WBC Esterase Urine Trace(A) Negative [facility] Protein, Ur Negative Negative/Tra ce [facility] [phone] Glucose, Ur Negative Negative [facility] Ketones, Urine Negative Negative [facility] Blood Urine Negative Negative [facility] Bilirubin Urine Negative Negative [facility] Urobilinogen Urine 0.2 0.2 - 1.0 mg/dL [facility] Nitrite, Urine Negative Negative [facility] [phone] Microscopic Examination See below: [facility] Comment:Microscopic was lisa cated and was performed. Urine (Urine, Clean Catch) 04/03/2024 4:13 PM EST 04/03/2024 Carlos Manuel Wagoner MD LAB URINE ORDERABLES Final Re sult [facility] [address] [place] [address] * Renal Function Panel (04/03/2024 4:13 PM EST) Glucose 87 70 - 99 mg/dL [facility] BUN 13 8 - 27 mg/dL [facility] Creatinine 0.62 0.57 - 1.00 mg/dL [facility] eGFR CKD-EPI CR 2020 93 >59 mL/min/1.7 3 [facility] BUN/Creatinine Ratio 21 12 - 28 [facility] Sodium 143 134 - 144 mmol/L [facility] Potassium 4.5 3.5 - 5.2 mmol/L [facility] Chloride 106 96 - 106 mmol/L [facility] Bicarbonate (CO2) 21 20 - 29 mmol/L [facility] Calcium 9.1 8.7 - 10.3 mg/dL [facility] Phosphorus 3.4 3.0 - 4.3 mg/dL [facility] Albumin 4.2 3.8 - 4.8 g/dL [facility] Blood (Blood, Venous) 04/03/2024 4:13 PM EST 04/03/2024 Carlos Manuel Wagoner MD LAB BLOOD ORDERABLES Final Re sult [facility] [address] [place] [address] * PTH, Intact (04/03/2024 4:13 PM EST) PTH 30 15 - 65 pg/mL [facility] Blood (Blood, Venous) 04/03/2024 4:13 PM EST 04/03/2024 us Carlos Manuel Wagoner MD LAB BLOOD ORDERABLES Final Re sult [facility] [address] [place] [address] documented in this encounter Visit Diagnoses Diagnosis Hypertensive heart and chronic kidney disease without heart failure, with stage 1 through stage 4 chronic kidney disease, or unspecified chronic kidney disease- Primary documented in this encounter Care Teams Senior Quality Analyst Relationship Specialty Start Date End Date Joseph Valencia MD [address] [place], [place] PCP - General Internal Medicine 08/02/23 documented as of this encounter
--- OUTSIDE RECORDS SUMMARY | 2024-07-08 19:36 | XMS_ITS | Patient Health Record ---
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) Active confirmed Encounters Encounter Location Date Provider Diagnosis [facility] [address] [place] [address] 11/01/2023 Merle Parker Plan Of Treatment Pending [...] Date [employer] [place] Medicare Advantage One [facility] [address] [place] [address] [id number] Eliza Shields Self - patient is the insured Medical (General) History Medical History History ICD Code Anxiety Back,Hip,and Knee pain Cancer Hiatal hernia Sciatica Psoriasis/eczema Stomach ulcer hyperparathyroidism Surgical History Surgery Date(Month/Year) lung lobectomy right and left 1998
--- OUTSIDE RECORDS SUMMARY | 2024-07-08 19:36 | XMS_ITS ---
Author Organization [facility] Address [address] [place] [address] Care Team Providers Care Vessel Welder Name Role Phone Joseph Valencia MD Primary Care Provider UnavailGeorge Ferguson Unavailable [phone] Larissa KEY, George Phipps REASON FOR VISIT Jhonny HAMMONDS/ NEED CLINICALS please .. what to send? Encounters Encounter Location Date Provider Diagnosis [facility] [address] [place] [address] 06/17/2024 George Nguyen PLAN OF TREATMENT Next Appt Details Provider Name:George Nguyen , 10/15/2024 04:20:00 PM, [address] [place] [address], [address], [place], [address],
--- OUTSIDE RECORDS SUMMARY | 2024-07-08 19:36 | XMS_ITS ---
Author Organization George Dias III, MD Address [address] [place] [address] [place] [address] Care Team Providers Care Senior Mechanical Development Engineer Name Role Phone Joseph Valencia MD Primary Care Provider George Ren [phone] REASON FOR VISIT wants lab results done on 09/10/2023 Encounters Encounter Location Date Provider Diagnosis George Dias III, MD [address] [place] [address] [place] [address] 09/12/2023 George Dias Plan Of Treatment Next Appt Details Provider Name:George Dias, 09/09/2024 04:00:00 PM, [address] [place] [address] [address] [place], [address], Progress Notes * DAJA PECAE PDOB: (73 yo F)Acc No.[id number]:09/12/2023 Patient:?MARLIN PEACE :1950???Age:73 Y???Sex:Female Address:[address] [place] [address] [place], [address] * true * Date:? Generated for Pina bennett/Rozina/eTransmitting on:?07/08/2024 07:35 PM EST
--- OUTSIDE RECORDS SUMMARY | 2024-07-08 19:36 | XMS_ITS ---
Author Organization [facility] Address [address] [place] [address] Care Team Providers Care Inclusion Special Educator Name Role Phone Joseph Valencia MD Primary Care Provider Merle Lopez [phone] REASON FOR VISIT cx ON 11/05 Encounters Encounter Location Date Provider Diagnosis [facility] [address] [place] [address] 11/01/2023 Merle Parker Plan Of Treatment No Information Progress Notes * Eliza RINCON PDOB: (73 yo F)Acc No.[id number]:11/01/2023 Patient:?Eliza Rincon :1950???Age:73 Y???Sex:Female Address:[address] [place] [address], [address] * true * Date:? Generated for Andrei sabrina/Rozina/eTransmitting on:?07/08/2024 07:35 PM EST
== END 2024-07-08 16:23 | disposition home or self-care (01) ==
LOC: HO.HUSH 15:56
PROVIDERS: PCP Internal Medicine; Visit Provider Nurse Practitioner Family
DX: N20.0 Calculus of kidney (principal)
CPT/HCPCS: 99213

== ENCOUNTER 2024-07-28 14:40 | Outpatient (AMB) | payer MEDICARE, SELFPAY ==
[2024-07-28 14:45] VITALS: BP 152/58; PULSE 76; BMI 27.7
--- NOTE | 2024-07-28 14:45 | A.OFFVIS_ITS ---
Vital Signs 07/28/24 14:45 Height 5 ft 4 in Weight 161 lb 6.054 oz BMI 27.7 BP 152/58 H Blood Pressure Location Rt brachial Position Sitting Pulse 76 Pulse Source Pulse Oximeter Intake Visit Reasons: r/s 06/26/24 3 mos followup Glass Calibrator Required: No Accompanied by: Self / Same As Patient Allergies codeine Allergy (Severe, Verified 07/08/24 16:55) nausea eplerenone Allergy (Severe, Verified 07/08/24 16:55) Gastrointestinal Upset Penicillins Allergy (Severe, Verified 07/08/24 16:55) Anaphylaxis sulfamethoxazole [From BACTRIM] Allergy (Severe, Verified 07/08/24 16:55) HIVES/RASH/SWELLING tamsulosin Adverse Reaction (Severe, Verified 07/08/24 16:55) cardiac Medication List - Last Reconciled 07/28/24 by Zakia Kasper ROUND CUTTER OPERATOR-C acetaminophen 1,000 mg PO Q6H PRN albuterol sulfate 90 mcg/actuation (Ventolin HFA) 2 puffs inhalation Q4-6H PRN 30 days albuterol sulfate 2.5 mg (6 mL) inhalation Q4-6H PRN 30 days alprazolam 0.25 mg PO TID PRN aspirin (Adult Aspirin Regimen) 81 mg PO DAILY carvedilol 6.25 mg PO BID clobetasol 0.05% 1 appl topical DAILY diltiazem HCl CD 180 mg PO DAILY ferrous sulfate 28 mg PO DAILY fluticasone propion-salmeterol 250-50 mcg/dose (Wixela Inhub) 1 ea inhalation BID 30 days furosemide 20 mg PO BID inhalational spacing device (BreatheRite MDI Spacer) As directed letrozole 2.5 mg PO DAILY mesalamine 4.8 grams PO DAILY multivitamin 1 tab PO DAILY omeprazole 20 mg PO BID potassium chloride ER 40 mEq PO BID tiotropium bromide (Spiriva with HandiHaler) 1 cap inhalation DAILY 30 days HPI HPI r/s 06/26/24 3 mos followup: Details: Eliza is a 74-year-old female with past medical history of hypertension, pulmonary hypertension, COPD, mild aortic stenosis, khgv-ez-yphqxqdn mitral regurgitation who presents for follow-up after recent echo. Today she reports that she has not been getting chest discomfort like she previously reported. She has been getting some shortness of breath with exertional activities. She just went to the bathroom prior to me seeing her in this exam room and she is still short of breath and currently coughing. No PND, orthopnea. He has been getting leg edema and is currently wearing her fashion stockings. She describes having skin issues on her lower legs and currently has 1 open skin area that is covered with a Band-Aid. This is normally followed by her PCP. No lightheadedness, presyncope, syncope. She ambulates with a walking stick. At times she will feel her heart go fast. No sustained rapid or irregular rates. Taking meds as directed. [facility] Medical History Breast cancer Essential hypertension Hypercalcemia Slow to wake up after anesthesia Hx of radiation therapy Hiatal hernia PONV (postoperative nausea and vomiting) Anemia History of kidney stones Proctitis Arthritis Anxiety Hyperparathyroidism Lung cancer GERD (gastroesophageal reflux disease) Asthma-COPD overlap syndrome Pulmonary hypertension Surgical History History of parathyroidectomy H/O cataract extraction Hx of cardiac catheterization Hx of varicose vein ligation and stripping History of lumpectomy of both breasts History of right inguinal hernia repair History of lithotripsy History of lobectomy of lung Hx of colonoscopy History of esophagogastroduodenoscopy Family History Mother Breast cancer Social History Household Members: Family Household Members Other:: Sister Are you a primary physician assistant primary care to a significant other at home: Yes (Sister) Do you presently have visiting nurse or other home services: No Alcohol intake: former Patient Tobacco Use Status: Former Tobacco user Tobacco use type: Cigarette Years Smoked: 31 Review of Systems Const All systems reviewed & are unremarkable except as noted in HPI and below Denies chills, Denies fatigue, Denies fever(s), Denies weight gain and Denies weight loss ENT Denies dizziness Card Denies chest pain, Reports leg edema, Denies lightheadedness, Denies palpitations, Reports dyspnea on exertion, Denies orthopnea and Denies other Resp Denies cough and Reports dyspnea on exertion GI Denies hematochezia and Denies change in stool character Musc Denies abnormal gait, Denies muscle weakness, Denies numbness, Denies radiating pain into limb and Denies tingling Neuro Denies abnormal gait, Denies dizziness, Denies numbness and Denies tingling Endo Denies fatigue and Denies palpitations Physical Exam Vital Signs: Last Vital Signs Pulse 76 07/28/24 14:45 BP 152/58 H 07/28/24 14:45 BMI result Body Mass Index 27.7 Const General: cooperative, healthy appearing, comfortable and no acute distress Orientation/consciousness: patient oriented x3 Neck Neck: Yes normal visual inspection Resp Effort & Inspection: normal respiratory effort Auscultation: clear to auscultation bilaterally, no rales, no rhonchi and no wheezes Cardio Jugular venous distension: no JVD Rate: regular rate Rhythm: regular rhythm Heart sounds: S1 normal heart sound present, S2 normal heart sound present, no gallops, no murmurs and no rubs Neuro General: patient oriented x3 Extrem Other: Compression socks on, pitting edema to lower extremities to level of knees. Psych Appearance: grossly normal Mental Status: mental status grossly normal Speech and movement: Normal speech and movement present Assessment & Plan Assessment & Plan (1) Chest discomfort: Code(s): R07.89 - Other chest pain Category: Medical Plan: On last visit she reported episodes of pressure/tightness going across her chest, occurring randomly. She has no known history of coronary artery disease. Cardiac risk factors of age, hypertension, sedentary. EKG from last visit showed sinus rhythm with frequent PACs, rate 94. Echocardiogram was done on 06/09/2024 showing EF 65%, aortic sclerosis, no stenosis, severe mitral annular calcification, mitral stenosis with mean gradient 6 mmHg. A nuclear stress test was done however not completed by her. At this time she is not reporting the same chest symptoms as last visit. She primarily has her usual shortness of breath with exertion. Echo results discussed. Signs and symptoms of angina reviewed with her. Emergency care if needed for symptoms. Cardiology follow-up 3 months, sooner if needed (2) Heart palpitations: Code(s): R00.2 - Palpitations Category: Medical Plan: Reports of heart palpitations like her heart is beating fast. Holter monitor done 02/22/2024 for 3 days shows sinus rhythm with average heart rate 81, PACs 0.9%. EKG done today shows sinus rhythm with frequent PACs. She could be feeling brief atrial runs, less likely atrial fibrillation as her episodes are brief. She is on carvedilol 6.25 mg b.i.d. following last visit diltiazem was added and she is now noticing less palpitations. Pulse is regular on examination. No med changes at this time. (3) Nonrheumatic aortic (valve) stenosis: Code(s): I35.0 - Nonrheumatic aortic (valve) stenosis Category: Medical Plan: 2022 echo shows mild aortic stenosis. Recent echo showing aortic sclerosis, no stenosis. Faint murmur on exam. (4) Non-rheumatic mitral regurgitation: Code(s): I34.0 - Nonrheumatic mitral (valve) insufficiency Category: Medical Plan: 2022 echo shows kwkv-ww-fejyitqb mitral regurgitation. Recent echo shows severe mitral annular calcification, mild MR, mitral stenosis, mean gradient 6 mmHg, which is moderate range. Reviewed this with her. Will plan for repeat echo 1 year, sooner if needed. (5) Essential hypertension: Code(s): I10 - Essential (primary) hypertension Category: Medical Plan: Short of breath and coughing in the office today. Blood pressure is mildly elevated. No med changes made. Will continue to follow. (6) Edema: Code(s): R60.9 - Edema, unspecified Category: Medical Plan: Bilateral lower leg edema, pitting. She is wearing compression stockings. She is on Lasix 20 mg b.i.d.. Will increase that to 40 mg in the a.m. and 20 mg in the p.m.. Labs in 1 week, BMP, BNP. Reviewed leg elevation and low-salt diet. Echo shows normal EF. Plan Time spent on chart review, documentation, interview and assessment Orders: Orders Lipid Panel Today I35.0 - Nonrheumatic aortic (valve) stenosis Basic Metabolic Panel Today I10 - Essential (primary) hypertension B Type Natriuretic Peptide Today I35.0 - Nonrheumatic aortic (valve) stenosis Medications: New furosemide (Lasix) 20 mg orally 2 tabs in the am and 1 tab in the afternoon; 30 days 90 tabs 3RF Coding Level of Care Code Est Pt Level 4 (51018) Complex EM visit Add On G2211 Diagnoses Chest discomfort R07.89 Heart palpitations R00.2 Nonrheumatic aortic (valve) stenosis I35.0 Non-rheumatic mitral regurgitation I34.0 Essential hypertension I10 Edema R60.9 Time Spent (min) 30
--- OUTSIDE RECORDS SUMMARY | 2024-07-28 17:15 | XMS_ITS | Clinical Summary ---
Author Organization [facility] Address [address] [facility] [address] [place] [address] Phone Care Team Providers Care Dementia Program Director Name Role Phone Joseph Valencia MD Primary Care Provider [phone] Allergies Active Allergy Reactions Criticality Noted Date [...] Take with meals. 180 tablet 3 4 Active Additional Information Patient not taking.Reported on [...] (one) time each day 90 tablet 4 Active potassium chloride (MICRO-K) 10 MEQ CR [...] Encounters Date Type Department Care Team Description 07/27/2024 Refill [facility] [address] [address] Carlos Manuel Wagoner MD 06/19/2024 2:00 PM EST Telemedicine [facility] [address] [place] [address] Carlos Manuel Wagoner MD Personal history of kidney stones (Primary Dx); Essential (primary) hypertension 05/02/2024 Refill [facility] [address] [place] [address] Carlos Manuel Wagoner MD 05/02/2024 Refill [facility] [address] [place] [address] Carlos Manuel Wagoner MD from Last 3 Months Immunizations Name Administration [...] Office Visit [facility] [address] [place] [address] Carlos Manuel Wagoner MD [address] [address] 12/15/2024 1:15 PM EDT Office Visit [facility] [address] [place] [address] Carlos Manuel Wagoner MD [address] [address] Health Maintenance Due Date Last [...] to complete this topic Insurance Care Teams Dementia Program Director Relationship Specialty Start Date End Date Joseph Valencia MD [address] [place] [address] [id number] [place] PCP - General Internal Medicine 08/02/23
--- OUTSIDE RECORDS SUMMARY | 2024-07-28 17:15 | XMS_ITS ---
Author Organization George Dias III, MD Address [address] [facility] [address] Care Team Providers Care Vertical Mill Operator Name Role Phone Joseph Valencia MD Primary Care Provider George Ren Unavailable [phone] Allergies Allergen (clinical drug ingredient) Drug/Non Drug [...] Date Provider Diagnosis George Dias III, MD [address] [place] [address] [place] [address] 09/03/2023 George Dias Ductal carcinoma in situ [...] Her reflux symptoms are well controlled with mvpl-qbg-qtehndg medication. 09/03/2023 Essential hypertension (ICD-10 - I10) [...] OV Provider Name:George Dias, 09/09/2024 04:00:00 PM, [address] [place] [address] [address], [place], [address], Progress Notes * DAJA PEACE PDOB: (73 yo F)Acc No.[id number]:09/03/2023 Progress Notes Patient:?MARLIN PEACE L P Provider:?George Dias MD :1950???Age:73 Y???Sex:Female D ate:09/03/2023 Address:[address] [place], [place] [id number] Pcp:Joseph Valencia MD Subjective: * Chief Complaints: [...] referred to endocrinology. She is seeing a regulatory compliance engineer as well as a vascular surgeon for [...] Lumpectomy and sentinel node biopsy left breast, [facility], Dr. Mixon 04/2021 * Hospitalization/Major Diagno [...] Her reflux symptoms are well controlled with myik-ili-lgrzdyj medication.?7.?Essential hypertension - I10, Her blood pressure [...] * Sign off status: Completed true * Provider:?Geogre Dias MD Date:?08/13 Generated for Pina bennett/Rozina/eTransmitting on:?07/28/2024 05:15 PM EDT History and Physical Notes * [...]
--- OUTSIDE RECORDS SUMMARY | 2024-07-28 17:15 | XMS_ITS | Encounter Summary ---
Author Organization [facility] Address [address] [address] Phone Care Team Providers Care Assembly Riveter Name Role Phone Joseph Valencia MD Primary Care Provider [phone] Reason for Visit * Reason Comments Med Refill Encounter Details Date Type Department Care Team ([facility] Contact Info) Description 07/27/2024 Refill [facility] [address] [address] Carlos Manuel Wagoner MD [facility] [address] Social History Tobacco Use Types Packs/Day Years [...] on file documented as of this encounter Plan of Treatment Upcoming Encounters Date Type Department Care Team (Late Contact Info) Description 08/11/2024 3:15 PM EDT Office Visit [facility] [address] [place] [address] Carlos Manuel Wagoner MD [address] [address] 12/15/2024 1:15 PM EDT Office Visit [facility] [address] [place] [address] Carlos Manuel Wagoner MD [address] [facility] [address] [place] [address] documented as of this encounter Visit Diagnoses Not on filedocumented in this encounter Care Teams Assembly Riveter Relationship Specialty Start Date End Date Joseph Valencia MD [address] [place] [address] [address] [place] PCP - General Internal Medicine 08/02/23 documented as of this encounter
--- OUTSIDE RECORDS SUMMARY | 2024-07-28 17:16 | XMS_ITS ---
Author Organization George Dias III, MD Address [address] [place] [address] [place] [address] Care Team Providers Care Head Bucker Name Role Phone Joseph Valencia MD Primary Care Provider George Ren [phone] REASON FOR VISIT wants lab results done on 09/10/2023 Encounters Encounter Location Date Provider Diagnosis George Dias III, MD [address] [place] [address] [place] [address] 09/12/2023 George Dias Plan Of Treatment Next Appt Details Provider Name:George Dias, 09/09/2024 04:00:00 PM, [address] [place] [address] [address] [place] [address], Progress Notes * DAJA PEACE PDOB: (73 yo F)Acc No.[id number]:09/12/2023 Patient:?MARLIN PEACE :1950???Age:73 Y???Sex:Female Address:[address] [place] [address] [facility] [place], [address] * true * Date:? Generated for Pina bennett/Fanenag/eTransmitting on:?07/28/2024 05:16 PM EDT
--- OUTSIDE RECORDS SUMMARY | 2024-07-28 17:16 | XMS_ITS ---
Author Organization [facility] Address [address] [place] [address] Care Team Providers Care Marine Underwriter Name Role Phone Joseph Valencia MD Primary Care Provider Merle Lopez [phone] REASON FOR VISIT cx ON 11/05 Encounters Encounter Location Date Provider Diagnosis [address] [address] 11/01/2023 Merle Parker Plan Of Treatment No Information Progress Notes * Eliza RINCON PDOB: (73 yo F)Acc No.[id number]:11/01/2023 Patient:?Eliza Rincon :1950???Age:73 Y???Sex:Female Address:[address] [place] [address], [address] * true * Date:? Generated for Andrei sabrina/Rozina/eTransmitting on:?07/28/2024 05:16 PM EDT
--- OUTSIDE RECORDS SUMMARY | 2024-07-28 17:16 | XMS_ITS | Patient Health Record ---
Author Organization [facility] Address [address] [place] [address] Care Team Providers Care Proposal Rep Name Role Phone Joseph Valencia MD Primary Care Provider George Reese Unavailable [phone] George Dias MD Unavailable Unavailable Allergies Allergen (clinical drug ingredient) Drug/Non Drug Allergy documented on EMR Reaction Allergy Type Onset Date Status codeine Codeine Unknown Drug Allergy Active Substance with sulfonamide structure and antibacterial mechanism of action (substance) Sulfa (uncoded) Unknown Allergy Active Penicillin (uncoded) Unknown Allergy Active Results Component Value Reference Range Notes Pathology Reviewed date:01/17/2024 02:55:38 PM Interpretation: Performing Lab:[facility], [address] [place] [id number] Notes/Report: Name: Daja Ann Age/Sex: 73/F : 1950 Unit#: [id number] Attend Dr: George Nguyen MD Re01/04/24 Status : [facility] Location: [facility] Disch: SPEC : [id number] RECD : 01/04/24 STATUS: YONG STACY NUM: [id number] FAVIOLA: 01/04/24 [facility] DR: George Nguyen MD ENTERED: 01/04/2414 43 SP TYPE: Surgical OTHR DR: Joseph Valencia MD ORDERED: HE Stain/9, Gross Micro L4/3 Diagnosis A. Colon, ascending, polypectomies: Tubular adenoma (s); negative for high-grade dysplasia. B. Colon, transverse , polypectomies: Tubular adenoma (s); negative for high-grade dysplasia. C. Colon, 40 cm 50 c m, polypectomy x2: Tubular adenoma (2); negative for high-grade dysplasia. Clinical History Pre-Op Dx: Screening , history of polyps, proctitis Post-Op Dx: Colon po lyps, diverticulosis, proctitis Microscopic Description Microscopic sections reviewed. Material Received A. Ascending colon polyps B. Transverse colon polyps C. Polyps between 40 cm and 50 cm Gross Description Received in three parts. Part A: Received in formalin labeled ?ascending colon polyps? are 6 sewell irregular and papular tissue fragm ents ranging from 0.1 to 0.35 cm, submitted in toto in a cassette labeled A. Part B: Received in formalin labeled ?transverse colon polyps? are several sewell and sewell-pink irregular, rectangul ar and papular tissue fragments ranging from 0.2-0.35 cm, submitted in toto in a cassette labeled B. Part C: Received in formalin labeled ?polyps between 40 cm and 50 cm are multiple minute to 0.9 cm in greates t dimension sewell and pink-red irregular and papular tissue fragments. The smaller tissue f ragments are submitted in toto in cassette C1. One of the intermediate sized papules is sec tioned and entirely submitted in cassette C2 and the largest papular fragment is inked, s ectioned and entirely submitted in cassette C3. CONTINUED ON NEXT PAGE Name: Daja Ann Age/Sex: 73/F : 1950 Unit#: [id number] Attend Dr: George Nguyen MD Re01/04/24 Status : [facility] Location: [facility] Disch: SPEC : [id number] RECD : 01/04/24 STATUS: YONG STACY NUM: [id number] FAVIOLA: 01/04/248 [facility] DR: George Nguyen MD ENTERED: 01/04/2414 43 SP TYPE: Surgical OTHR DR: Joseph Valencia MD ORDERED: ELSA Stain/9, Gross Micro L4/3 Gross Description (Continued) CEDS Copies To: Joseph Valencia MD [facility] [address] [place] [address] Drive [address] [place], [place] [id number] George Nguyen MD [facility] [address] [place] [address] Signed (si gnature on file) Kim Pearson MD 01/07/24 1434 END OF REPORT Reason For Referral No Information Medications Medication [...] for 90 Active Tylenol Extra Strength Active Immunizations Vaccine Route Administration Date Status Comme nts Influenza Unknown 03/29/2020 Administered Influenza Unknown 09/26/2023 Refused Influenza Unknown 06/11/2024 Refused Social History Tobacco Use: Social History Observation [...] ast year? No Points 0 Interpretation Negative Section Notes: Nonsmoker; no sig alcohol Nonsmoker; no sig alcohol Nonsmoker; no sig alcohol Nonsmoker; no sig alcohol Nonsmoker; no sig alcohol Problems Problem Type SNOMED Code ICD Code Onset Dates Problem Status W/U Status Risk Notes Problem 22744970 Epigastric abdominal pain (R10.13) Active confirmed Problem Screening for malignant neoplasm of colon (249419382) Encounter for screening for malignant neoplasm of colon (Z12.11) Active confirmed Problem History of polyp of colon (situation) (163350017) Personal history of colonic polyps (Z86.010) Active confirmed Problem Diverticular disease of colon (517624443) Diverticulosis of large intestine without perforation or abscess without bleeding (K57.30) Active confirmed Problem 471832796 Gastroesophageal reflux disease, esophagitis presence not specified (K21.9) Active confirmed Problem 33285977 Rectal bleed (K62.5) Active confirmed Problem Benign neoplasm of colon (17158616) 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 Problem Ulcerative colitis (00616341) Ulcerative colitis (K51.90) Active confirmed Problem Proctitis (0575774) 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) Active confirmed Problem Diverticulosis of colon (995508083) Diverticulosis of colon (K57.30) Active confirmed Vital Signs Temperature 98.6 degrees Fahrenheit 06/11/2024 Blood pressure diastolic 00 mm Hg 06/11/2024 Height 65 in 06/11/2024 Blood pressure systolic 000 mm Hg 06/11/2024 Weight 150 lbs 06/11/2024 BMI 24.96 kg/m2 06/11/2024 Encounters Encounter Location Date Provider Diagnosis [facility] Out[facility] [address] [place] [id number] 01/04/2024 George Nguyen Colon cancer screeni Z12.11 ; Colon polyps K63.5 ; Ulcerative colitis K51.90 and Diverticulosis of large intestine without perforation or abscess without bleeding K57.30 [facility] [address] [place] [address] 09/26/2023 George Nguyen Rectal bleed K62.5 ; Gastroesophageal reflux disease, esophagitis presence not specified K21.9 ; Tubulovillous adenoma of colon K63.5 ; Proctitis K62.89 and Encounter for screening for malignant neoplasm of colon Z12.11 [facility] [address] [place] [phone] 06/11/2024 George Nguyen Ulcerative colitis K51.90 ; Encounter for screening for malignant neoplasm of colon Z12.11 and Personal history of colonic polyps Z86.010 [facility] [address] [place] [phone] 10/23/2023 George Nguyen [facility] [address] [place] [phone] 12/31/2023 George Nguyen [facility] [address] [place] [id number] 01/03/2024 George Nguyen [facility] [address] [place] [phone] 01/05/2024 George Nguyen [facility] [address] [place] [phone] 02/02/2024 George Nguyen [facility] [address] [place] [phone] 02/06/2024 George Nguyen [facility] [address] [place] [id number] 02/11/2024 George Nguyen [facility] [address] [place] [id number] 03/05/2024 George Nguyen [facility] [address] [place] [address] 04/02/2024 George Nguyen [facility] [address] [place] [phone] 06/17/2024 George Nguyen Assessments Encounter Date Diagnosis (ICD Code) Assessment Notes Treatment Notes Treatment Clinical Notes Section Notes 01/04/2024 Colon cancer screening (ICD-10 - Z12.11) 01/04/2024 Colon polyps (ICD-10 - K63.5) 09/26/2023 Gastroesophageal reflux disease, esophagitis presence not specified (ICD-10 - K21.9) Overall, Daja appears quite well. We did review that her rectal bleeding could very well represent some residual ulcerative proctitis. It may also represent some hemorrhoidal bleeding. We did review that she is not actually having symptoms of proctitis in regard to urgency and bowel movement frequency. I advised her that she does not have to treat this with a mesalamine suppository if she is not having symptoms of proctitis such as urgency and frequency. However, I advised her that would leave the choice up to her. I did advise her that if she uses the mesalamine suppository and the bleeding stops after a few days she could then decrease the suppository to every second or third night, rather than stopping the suppository completely, so as to try to prevent further bleeding. Given her intermittent bleeding and previous history of polyps, I did recommend a followup colonoscopy for further screening and surveillance purposes as well. We did review the rationale for this regard to colorectal cancer prevention and/or early detection. Full consent was obtained for this, including risks of bleeding and perforation. The procedure will be done monitored anesthesia care. She was given the below instructions regarding adjustment of her medications before the procedure. I did advise Daja to contact me prior to the colonoscopy if she has any problems or questions I can be of assistance with. Daja was comfortable with this plan. Thank you again for allowing me to participate in Daja's care. I shall continue to keep you advised of her progress. 09/26/2023 Rectal bleed (ICD-10 - K62.5) Use the Mesalamine suppository every night for a week or so to stop the bleeding and then use it every 2nd or 3rd night if you want to. Overall, Daja appears quite well. We did review that her rectal bleeding could very well represent some residual ulcerative proctitis. It may also represent some hemorrhoidal bleeding. We did review that she is not actually having symptoms of proctitis in regard to urgency and bowel movement frequency. I advised her that she does not have to treat this with a mesalamine suppository if she is not having symptoms of proctitis such as urgency and frequency. However, I advised her that would leave the choice up to her. I did advise her that if she uses the mesalamine suppository and the bleeding stops after a few days she could then decrease the suppository to every second or third night, rather than stopping the suppository completely, so as to try to prevent further bleeding. Given her intermittent bleeding and previous history of polyps, I did recommend a followup colonoscopy for further screening and surveillance purposes as well. We did review the rationale for this regard to colorectal cancer prevention and/or early detection. Full consent was obtained for this, including risks of bleeding and perforation. The procedure will be done monitored anesthesia care. She was given the below instructions regarding adjustment of her medications before the procedure. I did advise Daja to contact me prior to the colonoscopy if she has any problems or questions I can be of assistance with. Daja was comfortable with this plan. Thank you again for allowing me to participate in Daja's care. I shall continue to keep you advised of her progress. 06/11/2024 Encounter for screening for malignant neoplasm of colon (ICD-10 - Z12.11) Overall, Daja presently appears well and seems to be doing well in regard to the underlying colitis. Her colitis remains in clinical remission at the present time without any specific medical therapy. Nonetheless, I did encourage her to use at least 2 of the 1.2 Gm mesalamine pills daily to hopefully maintain remission. I did review with her that I do think the pills are safe for her and will hopefully keep her colitis stable without any flare ups. I did advise her that ideally she can go up to 4 of the pills per day to maximize the dosage of that. We also reviewed the finding of multiple and relatively large tubular adenomas during her recent colonoscopy, many of which were removed at the time of her colonoscopy last December. I did advise her that I would like her to undergo a repeat colonoscopy by the end of the summer for a one-year followup so as to hopefully remain any residual polyps. I will plan to see her again in October to be sure things are stable with her colitis and she is hopefully remaining compliant with her medication. I would then plan to schedule her for the followup colonoscopy at that time. I did advise her to contact me prior to the October appointment if she is having any problems or questions I can be of assistance with. Daja was comfortable with this plan. Thank you again for allowing me to participate in Daja's care. I shall continue to keep you advised of her progress. 06/11/2024 Ulcerative colitis (ICD-10 - K51.90) Start back on two of the 1.2 Gm Mesalamine piils every day. Avoid all NSAIDs like Advil, Ibuprofen, etc. Tylenol is fine to use. We will repeat a colonoscopy in the 2024 Overall, Daja presently appears well and seems to be doing well in regard to the underlying colitis. Her colitis remains in clinical remission at the present time without any specific medical therapy. Nonetheless, I did encourage her to use at least 2 of the 1.2 Gm mesalamine pills daily to hopefully maintain remission. I did review with her that I do think the pills are safe for her and will hopefully keep her colitis stable without any flare ups. I did advise her that ideally she can go up to 4 of the pills per day to maximize the dosage of that. We also reviewed the finding of multiple and relatively large tubular adenomas during her recent colonoscopy, many of which were removed at the time of her colonoscopy last December. I did advise her that I would like her to undergo a repeat colonoscopy by the end of the summer for a one-year followup so as to hopefully remain any residual polyps. I will plan to see her again in October to be sure things are stable with her colitis and she is hopefully remaining compliant with her medication. I would then plan to schedule her for the followup colonoscopy at that time. I did advise her to contact me prior to the October appointment if she is having any problems or questions I can be of assistance with. Daja was comfortable with this plan. Thank you again for allowing me to participate in Daja's care. I shall continue to keep you advised of her progress. 01/04/2024 Ulcerative colitis (ICD-10 - K51.90) 09/26/2023 Tubulovillous adenoma of colon (ICD-10 - K63.5) Overall, Daja appears quite well. We did review that her rectal bleeding could very well represent some residual ulcerative proctitis. It may also represent some hemorrhoidal bleeding. We did review that she is not actually having symptoms of proctitis in regard to urgency and bowel movement frequency. I advised her that she does not have to treat this with a mesalamine suppository if she is not having symptoms of proctitis such as urgency and frequency. However, I advised her that would leave the choice up to her. I did advise her that if she uses the mesalamine suppository and the bleeding stops after a few days she could then decrease the suppository to every second or third night, rather than stopping the suppository completely, so as to try to prevent further bleeding. Given her intermittent bleeding and previous history of polyps, I did recommend a followup colonoscopy for further screening and surveillance purposes as well. We did review the rationale for this regard to colorectal cancer prevention and/or early detection. Full consent was obtained for this, including risks of bleeding and perforation. The procedure will be done monitored anesthesia care. She was given the below instructions regarding adjustment of her medications before the procedure. I did advise Daja to contact me prior to the colonoscopy if she has any problems or questions I can be of assistance with. Daja was comfortable with this plan. Thank you again for allowing me to participate in Daja's care. I shall continue to keep you advised of her progress. 06/11/2024 Personal history of colonic polyps (ICD-10 - Z86.010) Overall, Daja presently appears well and seems to be doing well in regard to the underlying colitis. Her colitis remains in clinical remission at the present time without any specific medical therapy. Nonetheless, I did encourage her to use at least 2 of the 1.2 Gm mesalamine pills daily to hopefully maintain remission. I did review with her that I do think the pills are safe for her and will hopefully keep her colitis stable without any flare ups. I did advise her that ideally she can go up to 4 of the pills per day to maximize the dosage of that. We also reviewed the finding of multiple and relatively large tubular adenomas during her recent colonoscopy, many of which were removed at the time of her colonoscopy last December. I did advise her that I would like her to undergo a repeat colonoscopy by the end of the summer for a one-year followup so as to hopefully remain any residual polyps. I will plan to see her again in October to be sure things are stable with her colitis and she is hopefully remaining compliant with her medication. I would then plan to schedule her for the followup colonoscopy at that time. I did advise her to contact me prior to the October appointment if she is having any problems or questions I can be of assistance with. Daja was comfortable with this plan. Thank you again for allowing me to participate in Daja's care. I shall continue to keep you advised of her progress. 01/04/2024 Diverticulosis of large intestine without perforation or abscess without bleeding (ICD-10 - K57.30) 09/26/2023 Proctitis (ICD-10 - K62.89) Overall, Daja appears quite well. We did review that her rectal bleeding could very well represent some residual ulcerative proctitis. It may also represent some hemorrhoidal bleeding. We did review that she is not actually having symptoms of proctitis in regard to urgency and bowel movement frequency. I advised her that she does not have to treat this with a mesalamine suppository if she is not having symptoms of proctitis such as urgency and frequency. However, I advised her that would leave the choice up to her. I did advise her that if she uses the mesalamine suppository and the bleeding stops after a few days she could then decrease the suppository to every second or third night, rather than stopping the suppository completely, so as to try to prevent further bleeding. Given her intermittent bleeding and previous history of polyps, I did recommend a followup colonoscopy for further screening and surveillance purposes as well. We did review the rationale for this regard to colorectal cancer prevention and/or early detection. Full consent was obtained for this, including risks of bleeding and perforation. The procedure will be done monitored anesthesia care. She was given the below instructions regarding adjustment of her medications before the procedure. I did advise Daja to contact me prior to the colonoscopy if she has any problems or questions I can be of assistance with. Daja was comfortable with this plan. Thank you again for allowing me to participate in Daja's care. I shall continue to keep you advised of her progress. 09/26/2023 Encounter for screening for malignant neoplasm of colon (ICD-10 - Z12.11) Stop the aspirin, Iron, and Turmeric for 1 week before the colonoscopy Do not take the Furosenide the day before nor on the day of the colonoscopy. Overall, Daja appears quite well. We did review that her rectal bleeding could very well represent some residual ulcerative proctitis. It may also represent some hemorrhoidal bleeding. We did review that she is not actually having symptoms of proctitis in regard to urgency and bowel movement frequency. I advised her that she does not have to treat this with a mesalamine suppository if she is not having symptoms of proctitis such as urgency and frequency. However, I advised her that would leave the choice up to her. I did advise her that if she uses the mesalamine suppository and the bleeding stops after a few days she could then decrease the suppository to every second or third night, rather than stopping the suppository completely, so as to try to prevent further bleeding. Given her intermittent bleeding and previous history of polyps, I did recommend a followup colonoscopy for further screening and surveillance purposes as well. We did review the rationale for this regard to colorectal cancer prevention and/or early detection. Full consent was obtained for this, including risks of bleeding and perforation. The procedure will be done monitored anesthesia care. She was given the below instructions regarding adjustment of her medications before the procedure. I did advise Daja to contact me prior to the colonoscopy if she has any problems or questions I can be of assistance with. Daja was comfortable with this plan. Thank you again for allowing me to participate in Daja's care. I shall continue to keep you advised of her progress. Plan Of Treatment Pending Test Test Name Order Date US ABD 02/10/2020 Future Test Test Name Order Date UPPER GI ENDOSCOPY 01/22/2020 COLONOSCOPY 01/22/2020 COLONOSCOPY 09/29/2020 COLONOSCOPY 09/26/2023 Next Appt Details Provider Name:George Nguyen , 10/15/2024 04:20:00 PM, [address] [place] [address], [address], [place], [address], Insurance Providers Payer Name Payer Address Payer Phone Subscriber Number Group Number Insured Name Patient Relationship to Insured Coverage Start Date Coverage End Date [facility] [address] [place] [phone] [id number] DAJA ANN Self - patient is the insured Medical (General) History Medical History History ICD Code Lung cancer - 1998--Removed upper right lobe Breast cancer-1998 Left--surgery and XRT ; and 03/2019 Right--surgery and XRT GERD Overactive parathyroid Anxiety Arthritis Colonoscopy in 2004 was neg. except for a hyperplastic polyp Denies DC,DM,CVA,renal disease COPD Colonscopy in 01/2020 with a [...] [place]onte 01/2023 Parathyroid surgery scheduiled for at [facility]--Dr. Arroyo
--- OUTSIDE RECORDS SUMMARY | 2024-07-28 17:16 | XMS_ITS | Patient Health Record ---
Author Organization [facility] Address [address] [place] [address] Care Team Providers Care Thread Roller Name Role Phone Joseph Valencia MD Primary Care Provider UnavailMerle Mejia Unavailable [phone] Allergies Allergen (clinical drug ingredient) Drug/Non Drug Allergy documented on EMR Reaction Allergy Type Onset Date Status amoxicillin Amoxicillin hives, SOB Drug Allergy Ac tive Atrovent Unknown Drug Allergy Active Bactrim hives, SOB Drug Allergy Active sulfa [...] Problem Status W/U Status Risk Notes Problem 9307109 Psoriasis (L40.9) Active confirmed Problem 54174791 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
--- OUTSIDE RECORDS SUMMARY | 2024-07-28 17:16 | XMS_ITS | Patient Health Record ---
Author Organization George Dias III, MD Address [address] [place] [address] Care Team Providers Care Supervisor Fleshing Name Role Phone Joseph Valencia MD Primary Care Provider George Ren Unavailable [phone] Allergies Allergen (clinical drug ingredient) Drug/Non Drug Allergy documented on EMR Reaction Allergy Type Onset Date Status sulfacetamide Sulfacetamide Unknown Drug Allergy Active Penicillin Unknown Drug Allergy Active codeine Codeine stomach upset Drug Allergy Act janet Results Component Value Reference Range Notes Complete Blood Count Auto Di ff Reviewed date:02/11/2024 08:40:31 AM Interpretation: Performing Lab:[facility], [address] [place] [address] Notes/Report: White Blood Count 8.6 4.8-10.8 X10*3/uL [...] Panel Reviewed date:02/11/2024 08:40:31 AM Interpretation: Performing Lab:[address] [address] Notes/Report: Sodium 141 135-145 mmol/L Potassium 4.0 3.3-5.1 mmol/L Chloride 109 96-108 mmol/L Carbon Dioxide 24 22-29 mmol/L Anion Gap 12 12-20 Blood Urea Nitrogen 12 9-16 mg/dL Creatinine 0.64 0.5-1.4 mg/dL Estimated Glomerular Filt Rate > 60 NOTE: For -[place] individuals, multiply the result by 1.210. Chronic [...] Random Reviewed date:02/11/2024 08:40:31 AM Interpretation: Performing Lab:[address] [address] Notes/Report: RECEIVED Creatinine Urine 69.30 Microalbumin Urine 26.0 Microalbum/Creatinine Ratio Ur 37.5 <30 ug/mg cr Albumin/Creatinine Ratio Reference Ranges: Normal: < 30 ug/mg creatinine Microalbuminuria: 30 - 300 ug/mg creatinine Clinical Albuminuria: > 300 ug/mg creatinine Hemoglobin A1c Reviewed date:02/11/2024 08:40:31 AM Interpretation: Performing Lab:[facility], [address] [place] [address] Notes/Report: Hemoglobin A1c % 5.6 <6.0 % [...] average glucose, using the formula of the V1I-Uuwykzn Average Glucose study (ADAG), Diabetes Care, Vol.31,#8, [...] at bedtime Rectal Once a day Active Letrozole 2.5 MG TAKE 1 TABLET BY KAROL TH EVERY DAY FOR 30 DAYS for 90 Active Social History Tobacco Use: Social History [...] Problem Status W/U Status Risk Notes Problem 5045666 Former smoker (Z87.891) Active confirmed She has been abstinent since 1998. She has a plan to prevent relapse in times of stress and illness. Problem Fibromyalgia (108254202) Fibromyalgia (M79.7) Active confirmed Her symptoms ar e stable and unchanged. Problem 505330619 Overweight (E66.3) Active confirmed This problem duron s resolved and will be removed from her problem list Problem 84442304 Allergy to sulfa drugs (Z88.2) Active confirmed Problem 386945105 GERD without esophagitis (K21.9) Active confirmed Her reflux symptoms are well controlled with ttgy-ofk-eisiukz medication. Problem 09781967 Essential hypertension (I10) Active confirmed Her blood pressure is 134/71. She is stable and no change in her regimen was needed. I recommended continued sodium restriction. Problem 43838893 Penicillin allergy (Z88.0) Active confirmed Problem 794492638003000 Hematochezia (K92.1) Active confirmed #4 days. She isn't visible streaks of red blood in her stool. She will be referred to her gastroenterologi st for colonoscopy. 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 Problem 44154036495580380 Adenocarcinoma of right lung (C34.91) Active confirmed There was no sign of her recurrent cervical new primary today. Problem 637430795 Renal cyst (N28.1) Active confirmed Diagnosis will be followed. 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 She has begun on anastrozole. She will have a radiation therapy consultation. Because of diffuse aches and pains. We have temporarily stopped anastrozole. Problem Psoriatic arthritis (407394381) Psoriatic arthritis (L40.50) Active confirmed She has [...] Date Provider Diagnosis George Dias III, MD [address] [place] [address] [place] [address] 09/03/2023 George Dias Ductal carcinoma in situ (DCIS) of right breast D05.11 ; Ductal carcinoma in situ (DCIS) of left breast D05.12 ; Overweight E66.3 ; Fibromyalgia M79.7 ; Hyperglycemia R73.9 ; GERD without esophagitis K21.9 ; Essential hypertension I10 ; Former smoker Z87.891 ; Psoriatic arthritis L40.50 and Adenocarcinoma of right lung C34.91 George Dias III, MD [address] [place] [address] [place] [address] 03/07/2024 George Dias Ductal carcinoma in situ (DCIS) of right breast D05.11 ; Ductal carcinoma in situ (DCIS) of left breast D05.12 ; Essential hypertension I10 ; GERD without esophagitis K21.9 ; Former smoker Z87.891 and Fibromyalgia M79.7 George Dias III, MD [address] [place] [address] [place] [address] 09/12/2023 George Dias Assessments Encounter Date Diagnosis [...] Her reflux symptoms are well controlled with zwlp-cbz-cxmojgv medication. 09/03/2023 Hyperglycemia (ICD-1 0 - R73.9) Her blood pressure is controlled and no change in her regiimen as needed. 03/07/2024 Former smoker (ICD-1 0 - Z87.891) She has been abstinent since 1998. She has a plan to prevent relapse in times of stress and illness. 09/03/2023 GERD without esophagitis (ICD-10 - K21.9) Her reflux symptoms are well controlled with zdjt-vpz-zjxcngo medication. 03/07/2024 Fibromyalgia (ICD-10 - M79.7) Her [...] Date PROFILE, FASTING (COMPREHENSIVE METABOLI C) 09/03/2023 PROFILE, FASTING (COMPREHENSIVE METABOLI C) 02/17/2020 PROFILE, RANDOM (COMPREHENSIVE METABOLIC ) 01/20/2020 LIPID [...] Details Provider Name:George Dias, 09/09/2024 04:00:00 PM, [address] [place] [address] DR, [address], [place], [address], Insurance Providers Payer Name Payer Address Payer Phone Subscriber Number Group Number Insured Name Patient Relationship to Insured Coverage Start Date Coverage End Date [facility] [address] [facility] [address] [facility] [place]RAUSTO [phone] [id number] DAJA POWELL Self - patient is the [...] l right kidney former smoker since 1998 [id number] son [id number] invasive ductal carcinoma left breast April [id number] [...] Lumpectomy and sentinel node biopsy left breast, [facility], Dr. Mixon 04/2021 Breast cancer surgery in 2021 2021
--- OUTSIDE RECORDS SUMMARY | 2024-07-28 17:16 | XMS_ITS ---
Author Organization [facility] Address [address] [place] [address] Care Team Providers Care Lace Stripper Name Role Phone Joseph Valencia MD Primary Care Provider Merle Lopez [phone] Encounters Encounter Location Date Provider Diagnosis [address] [address] 11/06/2023 Merle Parker Plan Of Treatment No Information Progress Notes * Eliza RINCON PDOB: (74 yo F)Acc No.[id number]:11/06/2023 Progress Notes Patient:?Eliza RINCON Provider:?Merle Parker DPM :1950???Age:73 Y???Sex:Female D ate:11/06/2023 Address:[address] [place], [place] [phone] Pcp:Joseph Valencia MD Subjective: * Chief Complaints: [...] Parker DPM Date:? Generated for Pina bennett/Rozina/eTransmitting on:?07/28/2024 05:15 PM EDT
--- OUTSIDE RECORDS SUMMARY | 2024-07-28 17:16 | XMS_ITS | Encounter Summary ---
Author Organization [facility] Address [address] [address] Phone Care Team Providers Care Private Inquiry Agent Name Role Phone Joseph Valencia MD Primary Care Provider [phone] Encounter Details Date Type Department Care Team (Latest Contact Info) Description 03/11/2024 Office Communication [facility] [address] [address] Carlos Manuel Wagoner MD [address] [address] Hypertensive heart and chronic kidney [...] Visit [facility] [address] [place] [address] Carlos Manuel Wagoner MD [address] [address] 12/15/2024 1:15 PM EDT Office Visit [facility] [address] [place] [address] Carlos Manuel Wagoner MD [address] [address] Scheduled Orders Name Type Priority [...] EST) Magnesium 2.2 1.6 - 2.3 mg/dL [facility] Blood (Blood, Venous) 04/03/2024 4:13 PM EST 04/03/2024 us Carlos Manuel Wagoner MD LAB BLOOD ORDERABLES [facility] [address] [place] [address] * CBC (04/03/2024 4:13 PM EST) WBC 9.2 3.4 - 10.8 x10E3/uL [facility] Comment: Effective April 14, 2024 profile [id number] WBC will be made ??non-orderable as a stand-alone order code. RBC 4.19 3.77 - 5.28 x10E6/uL [facility] Hemoglobin 13.2 11.1 - 15.9 g/dL [facility] Hematocrit 40.1 34.0 - 46.6 % [facility] MCV 96 79 - 97 fL [facility] MCH 31.5 26.6 - 33.0 pg [facility] MCHC 32.9 31.5 - 35.7 g/dL [facility] RDW 12.8 11.7 - 15.4 % [facility] Platelets 266 150 - 450 x10E3/uL [facility] Blood (Blood, Venous) 04/03/2024 4:13 PM EST 04/03/2024 us Carlos Manuel Wagoner MD LAB BLOOD ORDERABLES Final Re sult [facility] [address] [place] [address] * Vitamin D 25 Hydroxy (04/03/2024 4:13 PM EST) Vitamin D, 25-OH, Total 33.5 30.0 - 100.0 ng/mL [facility] Comment: Vitamin D deficiency has been defined by the [place] of Medicine and an Endocrine Society practice guideline as a level of serum 25-OH vitamin D less than 20 ng/mL (1,2). The Endocrine Society went on to further define vitamin D insufficiency as a level between 21 and 29 ng/mL (2). 1. IOM ([place] of Medicine). 2010. Dietary reference ?? intakes [...] ORDERABLES Final Re sult Performing Organization Address City/[facility]/ZIP Co de Phone Number [facility] [address] [place] [address] * Protein, Total, Random Urine w/Creatinine (Protein/Creat Ratio) (04/03/2024 4:13 PM EST) Creatinine, Ur 36.2 Not Estab. mg/dL [facility] Protein, Ur 4.0 Not Estab. mg/dL [facility] Urine Protein/Creatin ine Ratio 110 0 - 200 mg/g creat [facility] Urine (Urine, Clean Catch) 04/03/2024 4:13 PM EST 04/03/2024 Carlos Manuel Wagoner MD LAB URINE ORDERABLES Final Re sult [facility] [address] [place] [address] * (ABNORMAL) Urine Albumin / Creatinine Ratio (04/03/2024 4:13 PM EST) Urine Microalbumin 13.0 Not Estab. ug/mL [facility] Microalbumin/Crea tinine Ratio 36(H) 0 - 29 mg/g creat [facility] Comment: ? Normal: ?0 - ??29 ? Moderately increased: 30 - 300 ? Severely increased: ? >300 Urine (Urine, Clean Catch) 04/03/2024 4:13 PM EST 04/03/2024 us Carlos Manuel Wagoner MD LAB URINE ORDERABLES Final Re sult [facility] [address] [place] [address] * (ABNORMAL) Urinalysis with microscopic (04/03/2024 4:13 PM EST) Specific [place], Urine 1.011 1.005 - 1.030 [facility] [phone] pH Urine 6.0 5.0 - 7.5 [facility] Color, Urine Yellow Yellow [facility] Appearance Urine Clear Clear [facility] WBC Esterase Urine Trace(A) Negative [facility] Protein, Ur Negative Negative/Tra ce [facility] Glucose, Ur Negative Negative [facility] Ketones, Urine Negative Negative [facility] Blood Urine Negative Negative [facility] Bilirubin Urine Negative Negative [facility] Urobilinogen Urine 0.2 0.2 - 1.0 mg/dL [facility] Nitrite, Urine Negative Negative [facility] Microscopic Examination See below: [facility] Comment:Microscopic was lisa cated and was performed. Urine (Urine, Clean Catch) 04/03/2024 4:13 PM EST 04/03/2024 us Carlos Manuel Wagoner MD LAB URINE ORDERABLES Final Re sult [facility] [address] [place] [address] * Renal Function Panel (04/03/2024 4:13 PM EST) Glucose 87 70 - 99 mg/dL [facility] BUN 13 8 - 27 mg/dL [facility] Creatinine 0.62 0.57 - 1.00 mg/dL [facility] eGFR CKD-EPI CR 2020 93 >59 mL/min/1.7 3 [facility] BUN/Creatinine Ratio 21 12 - 28 [facility] Sodium 143 134 - 144 mmol/L [facility] Potassium 4.5 3.5 - 5.2 mmol/L [facility] Chloride 106 96 - 106 mmol/L [facility] Bicarbonate (CO2) 21 20 - 29 mmol/L [facility] Calcium 9.1 8.7 - 10.3 mg/dL [facility] Phosphorus 3.4 3.0 - 4.3 mg/dL [facility] Albumin 4.2 3.8 - 4.8 g/dL [facility] Blood (Blood, Venous) 04/03/2024 4:13 PM EST 04/03/2024 Carlos Manuel Wagoner MD LAB BLOOD ORDERABLES Final Re sult [facility] [address] [place] [address] * PTH, Intact (04/03/2024 4:13 PM EST) PTH 30 15 - 65 pg/mL [facility] Blood (Blood, Venous) 04/03/2024 4:13 PM EST 04/03/2024 Carlos Manuel Wagoner MD LAB BLOOD ORDERABLES Final Re sult Performing Organization Address City/[facility] Co de Phone Number [facility] [address] [place] [address] documented in this encounter Visit Diagnoses Diagnosis Hypertensive heart and chronic kidney disease without heart failure, with stage 1 through stage 4 chronic kidney disease, or unspecified chronic kidney disease- Primary documented in this encounter Care Teams Private Inquiry Agent Relationship Specialty Start Date End Date Joseph Valencia MD [id number] LYSSA QUEZADA PCP - General Internal Medicine 08/02/23 documented as of this encounter
--- OUTSIDE RECORDS SUMMARY | 2024-07-28 17:16 | XMS_ITS ---
Author Organization [facility] Address [address] [place] [address] Care Team Providers Care Change Release Manager Name Role Phone Joseph Valencia MD Primary Care Provider UnavailGeorge Ferguson Unavailable [phone] George Dias MD Unavailable Unavailable Allergies Allergen (clinical drug ingredient) Drug/Non Drug Allergy documented on EMR Reaction Allergy Type Onset Date Status codeine Codeine Unknown Drug Allergy Active Substance with sulfonamide structure and antibacterial mechanism of action (substance) Sulfa (uncoded) Unknown Allergy Active Penicillin (uncoded) Unknown Allergy Active REASON FOR VISIT Patient presents today for ulcerative protocolitis Medications Medication SIG (Take, Route, Frequency, Duration) [...] a day Active Tylenol Extra Strength Active [place] [facility] Active Turmeric Active Immunizations Vaccine Route Administration Date Status Comme nts Influenza Unknown 06/11/2024 Refused Social History Tobacco [...] Negative Section Notes: Nonsmoker; no sig alcohol Problems Problem Type SNOMED Code ICD Code Onset Dates Problem Status W/U Status Risk Notes Problem History of polyp of colon (situation) (445642970) Personal history of colonic polyps (Z86.010) Active confirmed Vital Signs Temperature 98.6 degrees Fahrenheit 06/11/19 25 Blood pressure systolic 000 mm Hg 06/11/19 25 Blood pressure diastolic 00 mm Hg 025 Height 65 in 06/11/2024 Weight 150 lbs 06/11/2024 BMI 24.96 kg/m2 06/11/2024 Encounters Encounter Location Date Provider Diagnosis [facility] [address] [place] [address] 06/11/2024 George Nguyen Ulcerative colitis K51.90 ; Encounter for screening for malignant neoplasm of colon Z12.11 and Personal history of colonic polyps Z86.010 Assessments Encounter Date Diagnosis (ICD Code) Assessment Notes Treatment Notes Treatment Clinical Notes Section Notes 06/11/2024 Ulcerative colitis (ICD-10 - K51.90) [...] advised of her progress. Plan Of Treatment Treatment Notes Assessment Notes Ulcerative colitis Start back on two of the 1.2 Gm Mesalamine piils every day. Avoid all NSAIDs like Advil, Ibuprofen, etc. Tylenol is fine to use. We will repeat a colonoscopy in the 2024 Next Appt Details Follow Up: October,, Garret n: Provider Name:George Nguyen , 10/15/2024 04:20:00 PM, [address], [address], [place], [address], Progress Notes * DAJA YOUNG PDOB: (74 yo F)Acc No.[id number]:06/11/2024 Progress Notes Patient:?MARLIN YOUNG Provider:?Goerge Nguyen MD :1950???Age:74 Y???Sex:Female D ate:06/11/2024 Address:[address] [place], [place] [id number] Pcp:Joseph Valencia MD Subjective: * Chief Complaints: * ???Patient presents today fo r ulcerative protocolitis * HPI: ???incontinence:? I saw Daja in followup today in regard to her underlying history of ulcerative colitis and personal history of tubular adenomas of the colon. ?I last saw Daja in December of 2023, at which time she underwent a colonoscopy. This revealed evidence of some active colitis in the rectum and lower sigmoid colon. She also had multiple colon polyps noted with multiple larger ones removed at that time. At the time of the procedure she was having some active symptoms from her colitis and I therefore started her on some mesalamine pills and mesalamine suppositories. 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 She did not use the suppositories either as those were bothersome and difficult to use due to the active symptoms of the colitis at that time. ?However, despite not using any medication, she reports that her bowel movements are presently regular and without any significant diarrhea nor bleeding. She enjoys a good appetite and denies any significant heartburn or dysphagia. She denies abdominal pain, jaundice, nor unintentional weight loss. She denies any known family history of colon cancer. * ROS:?General/Constitutional:?Change in appetite?denies.?Chills?denies.?Fatigue?denies.?Ophthalmologic:?Comments?all negative.?ENT:?Comments?all negative.?Respiratory:?hemoptysis?denies.?Cough?denies.?Cardiovascular:?Chest pain?denies.?Orthopnea?denies.?Gastrointestinal:?Comments?See HPI for details.?Genitourinary:?Hematuria?denies.?Dysuria?denies.?Musculoskeletal:?Painful joints?denies.?Weakness?denies.?Skin:?Itching?denies.?Rash?denies.?Neurologic:?Headache?denies.?Seizures?denies.?Psychiatric:?Comments?all negative.? * Medical History:? * Surgical History:?RUL lung r esection for cancer Lumpectomies right and left breast for cancer with left sided node dissection Right inguinal hernia repair Cateracts left and right -Dr. Newton Lasic surgery on both eyes Vein surgery left leg - Dr. Aponte 3Parathyroid surgery scheduiled for 11/08/23 at [facility]--Dr. Arroyo * Hospitalization/Major Diagno stic Procedure:?No Hospitalization History. * Family History:?Father: dece ased, diagnosed with HTN (hypertension).?Mother: , diagnosed with Heart disease.? Denies family hx of colon cancer or liver disease. * Social History:?Tobacco Use:?Tobacco Use/Smoking?Patient is a?former smoker,?When did you start smoking??15 years old,?When did you stop smoking??48 years old ,?How long has it been since you last smoked??> 10 years,?Additional Findings: Tobacco Non-User?Ex-cigarette smoker.?Drugs/Alcohol:?Alcohol Screen?Did you have a drink containing alcohol in the past year??No,?Points?0,?Interpretation?Negative.?Miscellaneous:?Marital status: . Occupation: retired. ???Nonsmoker; no sig alcohol. * Medications:?TakingTylenol E xtra Strength [employer] Turmeric ALPRAZolam 0.5 MG Tablet as directed Orally 4x a dayAspir-81 once a dayMultivitamin - Tablet 1 tablet Orally Once a dayAlbuterol Sulfate (2.5 MG/3ML) 0.083% Nebulization Solution INHALE 1 VIAL EVERY 4 HOURS BY MOUTH NEEDED Inhalation Omeprazole 20 MG Capsule Delayed Release 1 Orally BIDIron Mesalamine 1000 MG Suppository 1 suppository at bedtime Rectal Every night at bedtimeAlbuterol Sulfate HFA 108 (90 Base) MCG/ACT Aerosol Solution Inhalation Carvedilol 3.125 MG Tablet PLEASE SEE ATTACHED FOR DETAILED DIRECTIONS Oral Letrozole 2.5 MG Tablet Oral Potassium Chloride ER 10 MEQ Capsule Extended Release Oral Furosemide 40 MG Tablet 1 tablet Orally Once a dayLialda 1.2 GM Tablet Delayed Release 4 Orally Once a day, Notes: Please let my office know if the insurance is not covering this and we can try a different mesalamine product. ThanksMesalamine 1000 MG Suppository 1 Rectal NightlyMesalamine 1.2 GM Tablet Delayed Release 4 Orally Once a daydilTIAZem HCl ER Coated Beads 180 MG Capsule Extended Release 24 Hour TAKE ONE CAPSULE BY MOUTH DAILY Oral Medication List reviewed and reconciled with the patientTaking Tylenol Extra Strength Taking [employer] Taking Turmeric Taking ALPRAZolam 0.5 MG Tablet as directed Orally 4x a dayTaking Aspir-81 once a dayTaking Multivitamin - Tablet 1 tablet Orally Once a dayTaking Albuterol Sulfate (2.5 MG/3ML) 0.083% Nebulization Solution INHALE 1 VIAL EVERY 4 HOURS BY MOUTH NEEDED Inhalation Taking Omeprazole 20 MG Capsule Delayed Release 1 Orally BIDTaking Iron Taking Mesalamine 1000 MG Suppository 1 suppository at bedtime Rectal Every night at bedtimeTaking Albuterol Sulfate HFA 108 (90 Base) MCG/ACT Aerosol Solution Inhalation Taking Carvedilol 3.125 MG Tablet PLEASE SEE ATTACHED FOR DETAILED DIRECTIONS Oral Taking Letrozole 2.5 MG Tablet Oral Taking Potassium Chloride ER 10 MEQ Capsule Extended Release Oral Taking Furosemide 40 MG Tablet 1 tablet Orally Once a dayTaking Lialda 1.2 GM Tablet Delayed Release 4 Orally Once a day, Notes: Please let my office know if the insurance is not covering this and we can try a different mesalamine product. ThanksTaking Mesalamine 1000 MG Suppository 1 Rectal NightlyTaking Mesalamine 1.2 GM Tablet Delayed Release 4 Orally Once a dayTaking dilTIAZem HCl ER Coated Beads 180 MG Capsule Extended Release 24 Hour TAKE ONE CAPSULE BY MOUTH DAILY Oral Medication List reviewed and reconciled with the patient * Allergies:?Penicillin Sulfa Codeineyes[Allergies Verified] Objective: * Vitals:?Wt: 150 lbs, Ht: 65 in, BMI:24.96 Index, BP: 000/00 mm Hg, Temp: 98.6. * Examination: ???General Examination: ?GENERAL APPEARANCE:?pleasant, well nourished, well developed, in no acute distress.?EYES:?sclera non-icteric.?ORAL CAVITY:?mucosa moist.?NECK/THYROID:?no cervical lymphadenopathy, neck supple.?SKIN:?nonjaundiced, no spider angiomata.?HEART:?S1, S2 normal.?LUNGS:?clear to auscultation bilaterally.?ABDOMEN:?normal bowel sounds, no guarding or rigidity, no guarding or rigidity, no masses palpable, soft, nontender, nondistended.?EXTREMITIES:?no edema.?NEUROLOGIC:?alert and oriented.? Assessment: * Assessment: 1.?Ulcerative colitis - K51. 90 (Primary)?2.?Encounter for screening for malignant neoplasm of colon - Z12.11?3.?Personal history of colonic polyps - Z86.010? Overall, Daja presently appe ars well and seems to be doing well [...] to keep you advised of her progress. Plan: * Treatment: * Immunizations:? Influenza (Not administered - Refused: Patient decision) * Procedure Codes:?3017F COLOR ECTAL CA SCREEN DOC REV, Modifiers: 8P 1036F TOBACCO NON-VCHAL9441 BP SCR NOT PRFRM REC REASON NOS * Preventive Medicine:? ??Counseling:?Care goal follow-up plan:?Above Normal BMI Follow-up?Giving encouragement to exercise,?BMI management provided?Yes.? ??Urinary Incontinence:?Urinary Incontinence?Assessment:?Absent,?Plan of care documented:?No, reason not specified.? ??Screenings:?Fall Risk Screening?Fall Risk Assessment:?No falls in the past year,?Screening:?No falls in the past year,?Assessment:?Not performed, no reason specified,?Plan of Care:?Not documented, no reason specified.? * Follow Up:?October, * * Sign off status: Completed true * Provider:?George Nguyen MD Date:? 025 Generated for Pina bennett/Rozina/Michlelitting on:?07/28/2024 05:16 PM EDT History and Physical Notes * HPI (History of Present Illness) Category Sub-Category Detail Notes Category Not es incontinence I saw Daja in followup today in regard to her underlying history of ulcerative colitis and personal history of tubular adenomas of the colon. I last saw Daja in December of 2023, at which time she underwent a colonoscopy. This revealed evidence of some active colitis in the rectum and lower sigmoid colon. She also had multiple colon polyps noted with multiple larger ones removed at that time. At the time of the procedure she was having some active symptoms from her colitis and I therefore started her on some mesalamine pills and mesalamine suppositories. 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 She did not use the suppositories either as those were bothersome and difficult to use due to the active symptoms of the colitis at that time. However, despite not using any medication, she reports that her bowel movements are presently regular and without any significant diarrhea nor bleeding. She enjoys a good appetite and denies any significant heartburn or dysphagia. She denies abdominal pain, jaundice, nor unintentional weight loss. She denies any known family history of colon cancer. Examination Category Sub-Category Detail Notes Category Not es General Examination GENERAL APPEARANCE: pleasant , well [...]
--- OUTSIDE RECORDS SUMMARY | 2024-07-28 17:16 | XMS_ITS ---
Author Organization George Dias III, MD Address [address] [place] [address] Care Team Providers Care Lower In Supervisor Name Role Phone Joseph Valencia MD Primary Care Provider George Ren Unavailable [phone] Allergies Allergen (clinical drug ingredient) Drug/Non Drug [...] Date Provider Diagnosis George Dias III, MD [address] [place] [address] [place] [address] 03/07/2024 George Dias Ductal carcinoma in situ [...] Her reflux symptoms are well controlled with jeya-mfu-dkqsuny medication. 03/07/2024 Former smoker (ICD-10 - Z87.891) [...] cancer. Provider Name:George Dias, 09/09/2024 04:00:00 PM, [address] [place] [address] [address] [address], [place], [address], Progress Notes * DAJA PEACE PDOB: (74 yo F)Acc No.[id number]:03/07/2024 Progress Notes Patient:?MARLIN PEACE P Provider:?George Dias MD :1950???Age:74 Y???Sex:Female D ate:03/07/2024 Address:[address] [place], [place] [address] , [place] [id number] Pcp:Joseph Valencia MD Subjective: * Chief Complaints: [...] trying to get in touch with her utility specialist, Dr. Zee, to discuss her heart [...] Lumpectomy and sentinel node biopsy left breast, [facility], Dr. Mixon 1Breast cancer surgery in 2021 [...] :Her reflux symptoms are well controlled with wvhi-xgq-dxxgdof medication.???5.?Former smoker - Z87.891???Notes :She has been [...] * Provider:?George Dias MD Date:?02/12 Generated for Printi ng/Rozina/eTransmitting on:?07/28/2024 05:15 PM EDT History and Physical Notes * HPI (History of Present Illness) Category Sub-Category Detail Notes COVID-19 Screening Questions Have you had any new onset fever, chills, cough, congestion, sore throat, shortness of breath, muscle aches?: No Have you been exposed to the virus withi n the last 10 days?: No Have you travelled internationally in [facility] last 10 days?: No Have [...]
--- OUTSIDE RECORDS SUMMARY | 2024-07-28 17:16 | XMS_ITS ---
Author Organization [facility] Address [address] [place] [address] Care Team Providers Care Security Officers And Guards Name Role Phone Joseph Valencia MD Primary Care Provider UnavailGeorge Ferguson [phone] George Dias MD REASON FOR VISIT Jhonny HAMMONDS/ NEED CLINICALS please .. what to send? Encounters Encounter Location Date Provider Diagnosis [facility] [address] [place] [address] 06/17/2024 George Nguyen Plan Of Treatment Next Appt Details Provider Name:George Nguyen , 10/15/2024 04:20:00 PM, [address], [address], [place], [address], Progress Notes * DAJA YOUNG PDOB: (74 yo F)Acc No.[id number]:06/17/2024 Patient:?MARLIN YOUNG :1950???Age:74 Y???Sex:Female Address:[address] [place], [place] [address] [place] [address] * true * Date:? Generated for Printi ng/Faxing/eTransmitting on:?07/28/2024 05:16 PM EDT
--- OUTSIDE RECORDS SUMMARY | 2024-07-28 17:17 | XMS_ITS ---
Author Organization [facility] Address 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 [place] [address] 04/02/2024 George Nguyen Plan Of Treatment Next Appt Details Provider Name:George Nguyen , 10/15/2024 04:20:00 PM, [address], [address], [place], [address], Progress Notes * DAJA YOUNG PDOB: (74 yo F)Acc No.[id number]:04/02/2024 Patient:?MARLIN YOUNG :1950???Age:74 Y???Sex:Female Address:[address] [place] [address] * true * Date:? Generated for Pina bennett/Rozina/eTransmitting on:?07/28/2024 05:16 PM EDT
== END 2024-07-28 15:24 | disposition home or self-care (01) ==
LOC: HO.HCS 14:40
PROVIDERS: PCP Internal Medicine; Visit Provider Nurse Practitioner Family
DX: R07.89 Other chest pain (principal); R00.2 Palpitations; I35.0 Nonrheumatic aortic (valve) stenosis; I34.0 Nonrheumatic mitral (valve) insufficiency; I10 Essential (primary) hypertension; R60.9 Edema, unspecified
CPT/HCPCS: 99214; G2211

== ENCOUNTER → 2024-07-28 14:40 | Outpatient (BNVA) | payer MEDICARE, SELFPAY | PROVIDERS: PCP Internal Medicine; Visit Provider Nurse Practitioner Family | DX: R00.2 Palpitations (principal); R07.89 Other chest pain; I10 Essential (primary) hypertension; R60.9 Edema, unspecified; I35.0 Nonrheumatic aortic (valve) stenosis; I34.0 Nonrheumatic mitral (valve) insufficiency | CPT/HCPCS: 99212 ==

== ENCOUNTER 2024-07-30 08:38 | Outpatient (REF) | payer MEDICARE, SELFPAY ==
[2024-07-30 18:41] LABS: Alanine Aminotransferase 23 U/L (0-31); Aspartate Amino Transferase 27 U/L (5-31); Estimated Glomerular Filt Rate > 60
== END 2024-07-30 08:39 | disposition home or self-care (01) ==
LOC: HO.HKASLDS 08:38
PROVIDERS: PCP Internal Medicine; Visit Provider Internal Medicine Rheumatology
DX: M70.61 Trochanteric bursitis, right hip (principal); M70.62 Trochanteric bursitis, left hip; Z79.60 Long term (current) use of unspecified immunomodulators and immunosuppressants; M25.521 Pain in right elbow; M17.0 Bilateral primary osteoarthritis of knee; M81.0 Age-related osteoporosis without current pathological fracture
CPT/HCPCS: 20610; 36415; 82565; 84450; 84460; 99212; J2003; J3300

== ENCOUNTER 2024-07-30 08:38 | Outpatient (AMB) | payer MEDICARE, SELFPAY ==
--- NOTE | 2024-07-30 08:41 | A.OFFVIS_ITS ---
Vital Signs 07/30/24 08:42 Height 5 ft 4 in BP 110/70 Blood Pressure Location Rt brachial Position Sitting Pulse 73 Pulse Source Pulse Oximeter Pulse Oximetry (%) 96 Oxygen Delivery Method Room Air Intake Visit Reasons: OA Intake Note: Pt presents today with OA.Pt states that she would like to get bilateral hip cortisone hip inj. she states thats he would like to see if you can have her checkered out for bursitis on elbows, knees and ankles. Accompanied by: Self / Same As Patient Allergies codeine Allergy (Severe, Verified 07/30/24 09:05) nausea eplerenone Allergy (Severe, Verified 07/30/24 09:05) Gastrointestinal Upset Penicillins Allergy (Severe, Verified 07/30/24 09:05) Anaphylaxis sulfamethoxazole [From BACTRIM] Allergy (Severe, Verified 07/30/24 09:05) HIVES/RASH/SWELLING tamsulosin Adverse Reaction (Severe, Verified 07/30/24 09:05) cardiac HPI HPI OA: Details: Had cortisone injections to treat bilateral trochanteric bursa pain without benefit in January 2024 given to her by [facility]. She continues to have bilateral hip pain. She also has been experiencing bilateral knee pain and has difficulty with lifting her leg. She uses a cane to ambulate. She is unable to participate with physical therapy because she cares for her sister who has dementia and requires full care. She has intermittent right elbow pain and swelling that can occur when she is driving. It occurs about once every 3 weeks. Self resolves. She does not self medicate. Dr. Michael did not continue prescription of alendronate at her last visit in January. [facility] Medical History Breast cancer Essential hypertension Hypercalcemia Slow to wake up after anesthesia Hx of radiation therapy Hiatal hernia PONV (postoperative nausea and vomiting) Anemia History of kidney stones Proctitis Arthritis Anxiety Hyperparathyroidism Lung cancer GERD (gastroesophageal reflux disease) Asthma-COPD overlap syndrome Pulmonary hypertension Surgical History History of parathyroidectomy H/O cataract extraction Hx of cardiac catheterization Hx of varicose vein ligation and stripping History of lumpectomy of both breasts History of right inguinal hernia repair History of lithotripsy History of lobectomy of lung Hx of colonoscopy History of esophagogastroduodenoscopy Family History Mother Breast cancer Social History Household Members: Family Household Members Other:: Sister Are you a primary day care home provider to a significant other at home: Yes (Sister) Do you presently have visiting nurse or other home services: No Alcohol intake: former Patient Tobacco Use Status: Former Tobacco user Tobacco use type: Cigarette Years Smoked: 31 Review of Systems Const All systems reviewed & are unremarkable except as noted in HPI and below Physical Exam Vital Signs: Last Vital Signs Pulse 73 07/30/24 08:42 BP 110/70 07/30/24 08:42 Pulse Ox 96 07/30/24 08:42 Oxygen Delivery Method Room Air 07/30/24 08:42 Office Procedures AMB Joint Injection/Aspiration Joint Injection/Aspiration Details: Bilateral trochanteric bursa Prep: site was prepped using aseptic technique Injected into each site: 40 mg of, Kenalog, with 1 mL of and 1% plain lidocaine Procedure: The patient tolerated the procedure well. Postprocedure protocol was discussed with patient. Coding 67223 - Bilateral Large Joint Procedure code (CPT) selection complete AMB Joint Injection/Aspiration Coding 63167 - Bilateral Large Joint Procedure code (CPT) selection complete Office Meds lidocaine (PF) 10 mg/mL (1 %) injection solution Performing Provider: Jacobo Mtz MD Performing Location: [facility] Administered by: Jacobo Mtz MD on 07/30/24 21:14 Dose Route Admin Location Dispensed Lot Number Expiration Date [facility] Cryptologic Technician Operator/Analyst 10 mg Infiltration 2 mL [id number] [facility] Kenalog 40 mg/mL suspension for injection Performing Provider: Jacobo Mtz MD Performing Location: [facility] Administered by: Jacobo Mtz MD on 07/30/24 21:14 Dose Route Admin Location Dispensed Lot Number Expiration Date [facility] Cryptologic Technician Operator/Analyst 40 mg intrabursal 1 mL [id number] [employer] lidocaine (PF) 10 mg/mL (1 %) injection solution Performing Provider: Jacobo Mtz MD Performing Location: [facility] Administered by: Jacobo Mtz MD on 07/30/24 21:14 Dose Route Admin Location Dispensed Lot Number Expiration Date [facility] Cryptologic Technician Operator/Analyst 10 mg Infiltration 2 mL [id number] [facility] Kenalog 40 mg/mL suspension for injection Performing Provider: Jacobo Mtz MD Performing Location: [facility] Administered by: Jacobo Mtz MD on 07/30/24 21:14 Dose Route Admin Location Dispensed Lot Number Expiration Date [facility] Cryptologic Technician Operator/Analyst 40 mg intrabursal 1 mL [id number] [employer] Assessment & Plan Assessment & Plan (1) Greater trochanteric bursitis of both hips: Comment: Recurrent. Code(s): M70.61 - Trochanteric bursitis, right hip; M70.62 - Trochanteric bursitis, left hip Category: Medical Plan: Patient received bilateral trochanteric bursa cortisone injections (2) Right elbow pain: Comment: Intermittent right elbow pain and swelling. Unremarkable exam. Code(s): M25.521 - Pain in right elbow Category: Medical Plan: Monitor clinically We discussed conservative management. I recommend that she try diclofenac gel 1% applied to affected area every 4-6 hours as needed Baseline labs ordered prior to starting diclofenac gel (3) Osteoarthritis of knees, bilateral: Code(s): M17.0 - Bilateral primary osteoarthritis of knee Category: Medical Qualifiers: Osteoarthritis type: primary Qualified Code(s): M17.0 - Bilateral primary osteoarthritis of knee Plan: I am repeating x-rays of bilateral knees to evaluate for progression of osteoarthritis Baseline labs ordered prior to starting diclofenac 1% applied to affected area every 4-6 hours as needed Ice knees She is unable to participate in physical therapy because she has a primary caregiver for her sister who has dementia and is unable to have someone in place of her to take care of her sister to go to PT appointments (4) Osteoporosis: Comment: History: No history of fragility fracture. History of hyperparathyroidism followed by endocrinology. DXA 07/2022 lowest T-score -2.9 left femoral neck,-2.8 left total hip, -1.9 L-spine, left forearm -0.7. VFA 02/2023 without compression fracture. Alendronate started 05/28/2023-01/2024 Dr. Michael did not refill at follow-up visit in deferred further management to endocrinology. Code(s): M81.0 - Age-related osteoporosis without current pathological fracture Category: Medical Qualifiers: Osteoporosis type: age-related Presence of current pathological fracture: without current pathological fracture Qualified Code(s): M81.0 - Age- related osteoporosis without current pathological fracture Plan: She is planning to repeat bone density next month. I will address management of osteoporosis at our next follow-up Records from [facility] and [facility] reviewed. Return to clinic in 1-2 months Orders: Orders Creatinine Today Z79.60 - intermodal dispatcher (current) use of unspecified immunomodulators and immunosuppressants Alanine Aminotransferase Today Z79.60 - intermodal dispatcher (current) use of unspecified immunomodulators and immunosuppressants XR knee RT 2V Today M17.0 - Bilateral primary osteoarthritis of knee XR knee LT 2V Today M17.0 - Bilateral primary osteoarthritis of knee AMB Joint Injection/Aspiration Today M70.61 - Trochanteric bursitis, right hip, M70.62 - Trochanteric bursitis, left hip Aspartate Amino Transferase Today Z79.60 - intermodal dispatcher (current) use of unspecified immunomodulators and immunosuppressants AMB Joint Injection/Aspiration Today M70.61 - Trochanteric bursitis, right hip, M70.62 - Trochanteric bursitis, left hip Medications: New diclofenac sodium 1% apply to affected area every 4-6 hours as needed for joint pain 4 grams topical QID 300 grams 5RF Coding Level of Care Code Est Pt Level 4 (11217) Diagnoses Greater trochanteric bursitis of both hips M70.61; M70.62 Right elbow pain M25.521 Primary osteoarthritis of both knees M17.0 Osteoarthritis type: primary Age-related osteoporosis without current pathological fracture M81.0 Osteoporosis type: age-related Presence of current pathological fracture: without current pathological fracture CPT Codes Coding - 74191 - Bilateral Large Joint: 04658 - Bilateral Large Joint ([id number]) Coding - 70348 - Bilateral Large Joint: 80422 - Bilateral Large Joint ([id number]) Time Spent (min) 45
[2024-07-30 08:42] VITALS: BP 110/70; PULSE 73; O2SAT 96
== END 2024-07-30 11:09 | disposition home or self-care (01) ==
LOC: HO.RHES 08:39
PROVIDERS: PCP Internal Medicine; Visit Provider Internal Medicine Rheumatology
DX: M70.61 Trochanteric bursitis, right hip (principal); M70.62 Trochanteric bursitis, left hip; M25.521 Pain in right elbow; M17.0 Bilateral primary osteoarthritis of knee; M81.0 Age-related osteoporosis without current pathological fracture
CPT/HCPCS: 20610; 99214

== ENCOUNTER → 2024-08-14 14:30 | Outpatient (BNV) | payer MEDICARE, SELFPAY | PROVIDERS: PCP Internal Medicine; Visit Provider Radiology Diagnostic Radiology | DX: E28.39 Other primary ovarian failure (principal) | CPT/HCPCS: 77081 ==

== ENCOUNTER 2024-08-14 14:31 | Outpatient (REF) | payer MEDICARE, SELFPAY ==
--- NOTE | ~2024-08-14 | MM_ITS ---
EXAMINATION: DXA BONE DENSITY EXTREMITY HISTORY: Estrogen deficiency TECHNIQUE: ApoCell Dual energy absorptiometry (DEXA) of the lumbar spine, total left hip, femoral neck, and distal radius was performed. COMPARISON: Comparison is made with the prior examination dated 08/03/2022. FINDINGS: The bone mineral density of the lumbar spine is 1.007 with a T-score of -1.4, and a Z-score of 0.2. This is indicative of osteopenia. This represents a BMD change of 5.3% compared to the prior exam. This is statistically significant. The bone mineral density of the left total hip is 0.665 with a T-score of -2.7, and a Z-score of -1.0. This is indicative of osteoporosis. This represents a BMD change of 1.4% compared to the prior exam. This is not statistically significant. The bone mineral density of the left femoral neck is 0.642 with a T-score of -2.9, and a Z-score of -1.0. This is indicative of osteoporosis. This represents a BMD change of 1.6% compared to the prior exam. The bone mineral density of the distal radius is 0.650 with a T-score of -2.6, and a Z-score of -0.3. This is indicative of osteoporosis. This represents a BMD change of -20.3% compared to the prior exam. This is statistically significant. MM/XR DEXA appendicular skeleton IMPRESSION: Based on bone mineral density, and according to World Health Organization (WHO) criteria, the diagnosis is consistent with osteoporosis. All bone density values are in grams per centimeter squared (g/cm2). Statistically, 68% of repeat scans fall within 1 SD (+/- 0.010 g/cm2 for AP spine L1-L4) and 1 SD (+/- 0.012 g/cm2 for femur total) FRAX is a trademark of the [employer]'s [employer], a World Health Organization (WHO) Collaborating Center. Electronically signed by: George Wilson MD 08/14/2024 03:52 PM EDT
--- OUTSIDE RECORDS SUMMARY | 2024-08-14 16:02 | XMS_ITS ---
Author Organization [facility] Address [address] [place] [phone] Care Team Providers Care Director Of Product Design Name Role Phone Joseph Valencia MD Primary Care Provider Merle Lopez [phone] Encounters Encounter Location Date Provider Diagnosis [address] [phone] 11/06/2023 Merle Parker Plan Of Treatment No Information Progress Notes * Eliza RINCON PDOB: (74 yo F)Acc No.[id number]:11/06/2023 Progress Notes Patient:?Eliza RINCON Provider:?Merle Parker DPM :1950???Age:73 Y???Sex:Female D ate:11/06/2023 Address:[address] [place], [place] [id number] Pcp:Joseph Valencia MD Subjective: * Chief Complaints: [...] Parker DPM Date:? Generated for Pina bennett/Rozina/eTransmitting on:?08/14/2024 04:01 PM EDT
--- OUTSIDE RECORDS SUMMARY | 2024-08-14 16:02 | XMS_ITS | Clinical Summary ---
Author Organization [facility] Address [address] [facility] [address] [place] [address] Phone Care Team Providers Care Dressmaker Or Tailor Name Role Phone Joseph Valencia MD Primary Care Provider [phone] Allergies Active Allergy Reactions Criticality Noted Date Comments Codeine GI intolerance 10/29/2023 Nausea Ipratropium Other (see comments) 04/25/2019 Penicillins Other (see comments) 04/25/2019 Sulfacetamide Other (see comments) 05/29/2023 Sulfate Other (see comments) 04/25/2019 Medications albuterol 1.25 MG/3ML nebulizer solution INHALE CONTENTS OF 1 AMP VIA NEBULIZER EVERY 4-6 HOURS NEEDED FOR WHEEZING OR SHORTNESS OF BREATH 01/19/20 23 Active ALPRAZolam (XANAX) 0.5 MG tablet TAKE 1/2 TABLET BY MOUTH 3 TIMES A DAY NEEDED 01/20/20 23 Active letrozole (FEMARA) 2.5 MG chemo tablet 01/23/20 23 Active omeprazole (PriLOSEC) [address] capsule Take 20 mg by mouth 01/09/20 23 Active furosemide (LASIX) 20 MG tablet Take 40 mg by mouth 1 (one) time each day For 30 days Note : Pt is taken 40 mg in the morning 03/29/20 23 Active aspirin (ST JASON) 81 MG EC tablet Take 81 mg by mouth in the morning. Active carvedilol (Coreg) 12.5 MG tablet Take 1 tablet (12.5 mg total) by mouth in the morning and 1 tablet (12.5 mg total) in the evening. Take with meals. 180 tablet 3 07/27/19 24 Active Additional Information Patient not taking.Reported on 08/11/2024 doxycycline (VIBRA-TABS) 100 MG tablet 07/31/19 24 Active mesalamine (CANASA) 1000 MG suppository UNWRAP AND INSERT 1 SUPPOSITORY AT BEDTIME RECTALLY EVERY NIGHT FOR 30 DAY(S) 10/28/19 24 Active aMILoride (MIDAMOR) 5 MG tablet Take 1 tablet (5 mg total) by mouth 1 (one) time each day 90 tablet 04/17/20 24 Active dilTIAZem CD (CARDIZEM CD) 180 MG 24 hr capsule Take 180 mg by mouth 1 (one) time each day 05/31/19 25 Active carvedilol (COREG) 3.125 MG tablet PLEASE SEE ATTACHED FOR DETAILED DIRECTIONS 360 tablet 1 07/30/19 25 Active carvedilol (COREG) 3.125 MG tablet Take 2 tablets (6.25 mg total) by mouth in the morning and 2 tablets (6.25 mg total) in the evening. Take with meals. 360 tablet 1 02/14/20 24 025 Discontinued potassium chloride (MICRO-K) 10 MEQ CR capsule TAKE 2 CAPSULES (20 MEQ TOTAL) BY MOUTH 1 (ONE) TIME EACH DAY PT TAKEN IT 2 TIMES A DAY 180 capsule 05/03/20 24 025 carvedilol (COREG) 3.125 MG tablet PLEASE SEE ATTACHED FOR DETAILED DIRECTIONS 360 tablet 1 07/30/19 025 Discontinued Active Problems Problem Noted Date Diagnosed Date Essential (primary) hypertension 10/29/2023 Personal history of kidney stones 10/29/2023 Other secondary hypertension 08/02/2023 Encounters Date Type Department Care Team Description 08/11/2024 3:15 PM EDT Office Visit [facility] [address] [place] [address] Carlos Manuel Wagoner MD Personal history of kidney stones (Primary Dx) 07/29/2024 Refill [facility] [address] [phone] Carlos Manuel Wagoner MD 07/27/2024 Refill [facility] [address] [phone] Carlos Manuel Wagoner MD 06/19/2024 2:00 PM EST Telemedicine [facility] [address] [place] [address] Carlos Manuel Wagoner MD Personal history of kidney stones (Primary Dx); Essential (primary) hypertension from Last 3 Months Immunizations Name Administration [...] Sign Reading Time Taken Comments Blood Pressure 142/94 08/11/2024 3:34 PM EDT Pulse 77 08/11/2024 3:34 PM EDT Temperature - - Respiratory Rate - - Oxygen Saturation 99% 08/11/2024 3:34 PM EDT Inhaled Oxygen Concentration - - Weight 69.7 kg (153 lb 9.6 oz) 08/11/2024 3:34 P M EDT Height - - Body Mass Index - - Plan of Treatment Upcoming Encounters Date Type Department Care Team (Late st Contact Info) Description 12/15/2024 1:15 PM EDT Office Visit [facility] [address] [place] [address] Carlos Manuel Wagoner MD [address] [facility] [address] [place] [address] 08/10/2025 3:15 PM EDT Office Visit [facility] [address] [place] [address] Carlos Manuel Wagoner MD [address] [phone] Health Maintenance Due Date Last Done Comments Breast Cancer Screening 1950 Colorectal Cancer Screening: Annual FOBT 1998 Colorectal Cancer Screening: Colonoscopy 1998 Colorectal Cancer Screening: Sigmoidoscopy 1998 Pneumococcal Vaccine: 65+ Years (3 of 3 - PPSV23 or PCV20) 02/01/2015 12/07/2014, 12/05/2006 Influenza Vaccine (Season Ended) 2025 02/26/2015, 03/06/2011 Hepatitis B Vaccine Aged Out No longe r eligible based on patient's age to complete this topic Insurance [facility] Care Teams Dressmaker Or Tailor Relationship Specialty Start Date End Date Joseph Valencia MD [id number] [place] PCP - General Internal Medicine 08/02/23
--- OUTSIDE RECORDS SUMMARY | 2024-08-14 16:02 | XMS_ITS ---
Author Organization George Dias III, MD Address [address] [place] [address] Care Team Providers Care Bulk Clerk Name Role Phone Joseph Valencia MD Primary Care Provider George Ren Unavailable [phone] Allergies Allergen (clinical drug ingredient) Drug/Non Drug [...] Date Provider Diagnosis George Dias III, MD [address] [place] [address] [place] [address] 03/07/2024 George Dias Ductal carcinoma in situ [...] Her reflux symptoms are well controlled with [id number] medication. 03/07/2024 Former smoker (ICD-10 - Z87.891) [...] cancer. Provider Name:George Dias, 09/09/2024 04:00:00 PM, [address] [place] [address] [address] [address], [place], [address], Progress Notes * DAJA PEACE PDOB: (74 yo F)Acc No.[id number]:03/07/2024 Progress Notes Patient:?MARLIN PEACE P Provider:?George Dias MD :1950???Age:74 Y???Sex:Female D ate:03/07/2024 Address:[address] [place], [place] [address] , [place]ales [id number] Pcp:Joseph Valencia MD Subjective: * Chief Complaints: [...] trying to get in touch with her montessori lead teacher, Dr. Zee, to discuss her heart condition [...] Lumpectomy and sentinel node biopsy left breast, [facility], Dr. Mixon 1Breast cancer surgery in [...] :Her reflux symptoms are well controlled with [id number]-yorvwvt medication.???5.?Former smoker - Z87.891???Notes :She has been [...] Dias MD Date:?02/12 Generated for Printi ng/Rozina/eTransmitting on:?08/14/2024 04:02 PM EDT History and Physical Notes * HPI (History of Present Illness) Category Sub-Category Detail Notes COVID-19 Screening Questions Have you had any new onset fever, chills, cough, congestion, sore throat, shortness of breath, muscle aches?: No Have you been exposed to the virus withi n the last 10 days?: No Have you travelled internationally [facility] last [facility] days?: No Have [...]
--- OUTSIDE RECORDS SUMMARY | 2024-08-14 16:02 | XMS_ITS | Encounter Summary ---
Author Organization [facility] Address [address] [place] [phone] Phone Care Team Providers Care Telesales Manager Name Role Phone Joseph Valencia MD Primary Care Provider [phone] Reason for Visit * Reason Comments Essential (primary) hypertension Encounter Details Date Type Department Care Team ([facility] st Contact Info) Description 08/11/2024 3:15 PM EDT [facility] Visit [facility] [address] [place] [address] Carlos Manuel Wagoner MD [address] [address] Personal history of kidney stones (Primary Dx) Social History Tobacco Use Types [...] on file documented as of this encounter Last Filed Vital Signs Vital Sign Reading Time Taken Comments Blood Pressure 142/94 08/11/2024 3:34 PM EDT Pulse 77 08/11/2024 3:34 PM EDT Temperature - - Respiratory Rate - - Oxygen Saturation 99% 08/11/2024 3:34 PM EDT Inhaled Oxygen Concentration - - Weight 69.7 kg (153 lb 9.6 oz) 08/11/2024 3:34 P M EDT Height - - Body Mass Index - - documented in this encounter Patient Instructions * Patient Instructions* Carlos Manuel Wagoner MD - 08/11/2024 3:15 PM EDT No NSAIDS - Do not take non-steroidal anti-inflammatory medications (NSAIDS) such as Ibuprofen (Advil, Motrin, etc), Naproxen (Aleve, etc), Celecoxib (Celebrex) or Ketoprofen. These common arthritis medications can cause permanent kidney damage or worsen your kidney damage. For mild occasional pain, Acetaminophen (Tylenol, etc) is safe for your kidneys. Sodium and Your CKD Diet: How to Spice Up Your Cooking What is sodium? Sodium is a mineral found naturally in foods and is the major part of table salt. What are the effects of eating too much sodium? When your kidneys are not healthy, extra sodium and fluid build up in your body. This can cause swollen ankles, puffiness, a rise in blood pressure, shortness of breath, and/or fluid around your heart and lungs. See the following table for suggestions on how to reduce sodium in your diet. LIMIT THE [AMOUNT OF... FOOD TO LIMIT BECAUSE OF THEIR HIGH SODIUM CONTENT ACCEPTABLE SUBSTITUTES SALT & SALT SEASONINGS Table salt Seasoning salt Garlic salt Onion salt Celery salt Lemon pepper Lite salt Meat tenderizer Bouillon cubes Flavor enhancers Fresh garlic, fresh onion, garlic powder, onion powder, black [pepper, lemon juice, low-sodium/salt-free seasoning blends, vinegar SALTY FOODS Barbecue sauce Steak sauce Soy sauce Teriaky sauce Oyster sauce Salted Snacks such as Crackers Potato chips [place] chips Pretzels Tortilla chips Nuts Popcorn [place] seeds Homemade or low- sodium sauces and salad dressings; Vinegar, dry mustard, unsalted popcorn, pretzels, tortilla or corn chips Cured Foods Ham Salt pork [place] Sauerkraut Pickles, pickle relish Lox & [place] Olives Fresh beef, veal, pork, poultry, fish, eggs [place] MEATS Hot Dogs Cold cuts, deli meats Pastrami Sausage Corned beef Spam Low-salt deli meats PROCESSED FOODS Buttermilk Cheese Canned: Soups Tomato products Vegetable juices Canned vegetables Convenience Foods such as: TV Dinners Canned raviolis Cisco Macaroni & Cheese Spaghetti Frozen prepared foods Fast foods Natural cheese (1-2 oz Per week) Homemade or zhane,1- sodium soups, canned food without added salt Homemade casseroles without added salt, made with fresh or raw vegetables, fresh meat, seth, pasta, or unsalted canned vegetables Some salt or sodium is needed for body water balance. But when your kidneys lose the ability to control sodium and water balance, you may experience the following: thirst fluid gain high blood pressure discomfort during dialysis By using less sodium in your diet, you can control these problems. Hints to keep your sodium intake down Cook with herbs and spices instead of salt. (Refer to Spice Up Your Cooking section for further suggestions.) Read food labels and choose those foods low in sodium. Avoid salt substitutes and specialty low-sodium foods made with salt substitutes because they are high in potassium. When eating out, ask for meat or fish without salt. Ask for gravy or sauce on the side; these may contain large amounts of salt and should be used in small amounts . Limit use of canned, processed and frozen foods. Some information about reading labels Understanding the terms: Sodium Free - Only a trivial amount of sodium per serving. Very Low Sodium - 35 mg or less per serving. Low Sodium - 140 mg or less per serving. Reduced Sodium - Foods in which the level of sodium is reduced by 25%. Light or Lite in Sodium - Foods in which the sodium is reduced by at least 50% . Simple rule of thumb : If salt is listed in the first five ingredients, the item is probably too high in sodium to use. All food labels now have milligrams (mg) of sodium listed. Follow these steps when reading the sodiwn information on the label: 1. Know how much sodium you are allowed each day. Remember that there are 1000 milligrams (mg) in 1gram. For [id number], if your diet prescription is 2 grams of sodium , your limit is 2000 milligrams per day. Consider the sodium value or other food to be eaten during the day. 2. Look at the package label. Check the serving size. Nutrition values are expressed per neptali g. How does this compare to your total daily allowance? If the sodium level is 500 mg or more per serving, the item is not a good choice. 3. Compare labels of similar products. Select the lowest sodium level for the same serving size. How to Spice Up Your Cooking Giving up salt does not mean giving up flavor. Learn to season your food with herbs and spices. Be creative and experiment for a new and exciting flavor. What kinds of spices and herbs should I use instead of salt to add flavor? Try the following spices with the foods listed. Allspice: Use with beef, fish, beets, cabbage, canots, peas, fruit. Basil: Use with beef, pork, most vegetables. [place]: Use with beef, pork, most vegetables. July: Use with beef, pork, green beans, cauliflower, cabbage, beets, asparagus, and in dips and marinades. Cardamom: Use with fruit and in baked goods. Workman: Use with beef, chicken, pork, fish, green beans, carrots and in marinades. Dill: Use with beef, chicken, green beans, cabbage, carrots, peas and in dips. Rina: Use with beef, chicken, pork, green beans, cauliflower and eggplant. Marjoram: Use with beef, chicken, pork, green beans, cauliflower and eggplant. Angelita: Use with chicken, pork, cauliflower, peas and in marinades. Thyme: Use with beef, chicken, pork, fish, green beans, beets and carrots. Farhat: Use with chicken, pork, eggplant and in dressing. Tarragon: Use with fish, chicken, asparagus, beets, cabbage, cauliflower and in marinades. Tips for cooking with herbs and spices Purchase spices and herbs in small amounts . When they sit on the shelf for years they lose their flavor. Use no more than ?? teaspoon of dried spice (?? of fresh) per pound of meat. Add ground spices to food about 15 minutes before the end of the cooking period. Add whole spices to food at least one hour before the end of the cooking period. Combine herbs with oil or butter, set for 30 minutes to bring out their flavor, then brush on foodswhile they cook, or brush meat with oil and sprinkle herbs one hour before coolcing. Crush dried herbs before adding to foods. Can I use salt substitutes? Caution! If you are told to limit potassium in your diet, be very cautious about using salt substitutes because most of them contain some form of potassium. Check with your doctor or dietitian beforeusing and salt substitute. [place] and create your own seasoning containing those spices that you like. If you would like to become a volunteer and find out more about what's happening where you live, contact your local [facility] Affiliate. documented in this encounter Progress Notes * Carlos Manuel Wagoner MD - 08/11/2024 3:15 PM EDT Images from the original note were not included. Patient Name: Eliza Bunch, Female Date of : 1950, 74 y.o. Date: 08/11/24 [] New Patient [x] Established Patient [] New Hospital Follow Up [] Established Hospital Follow Up [] Telemed Visit [] H&P Referring MD: No primary care provider on file. PCP: Joseph Valencia MD Reason For Visit: HTN, Primary Hyperparathyroidism, Recurrent Kidney Stones Eliza Bunch is a 74 y.o. female seen today re: -HTN: mult med intolerances -hyperCa and w/u c/w primary hyperpara now s/p parathyroidectomy 10/2023 -leg edema Overall doing ok. Meds as noted The following portions of the patient's chart were reviewed in this encounter and updated as appropriate: Allergies Meds Problems Med Hx Surg Hx Fam Hx Constitutional: Negative for chills and fever. HENT: [...] Medical History: Diagnosis Date Essential hypertension Osteoporosis History reviewed. No pertinent surgical history. Social History Tobacco Use Smoking status: Never Smokeless tobacco: Not on file Substance Use Topics Alcohol use: Never History reviewed. No pertinent family history. Current Outpatient Medications Medication Sig Dispense Refill albuterol 1.25 MG/3ML nebulizer solution INHALE CONTENTS OF 1 AMP VIA NEBULIZER EVERY 4-6 HOURS NEEDED FOR WHEEZING OR SHORTNESS OF BREATH ALPRAZolam (XANAX) 0.5 MG tablet TAKE 1/2 TABLET BY MOUTH 3 TIMES A DAY NEEDED aMILoride (MIDAMOR) 5 MG tablet Take 1 tablet (5 mg total) by mouth 1 (one) time each day 90 tablet0 aspirin (ST JASON) 81 MG EC tablet Take 81 mg by mouth in the morning. carvedilol (COREG) 3.125 MG tablet PLEASE SEE ATTACHED FOR DETAILED DIRECTIONS 360 tablet 1 dilTIAZem CD (CARDIZEM CD) [...] DR capsule Take 20 mg by mouth carvedilol (Coreg) 12.5 MG tablet Take 1 tablet (12.5 mg total) by mouth in the morning and 1 tablet (12.5 mg total) in the evening. Take with meals. (Patient not taking: Reported on 08/11/2024) 180 tablet 3 No current facility-administered medications for this visit. Allergies Allergen Reactions Codeine GI intolerance Nausea Ipratropium Other (see comments) Penicillins Other (see comments) Sulfacetamide Other (see comments) Sulfate Other (see comments) Objective: Vitals: 08/11/24 1534 BP: 142/94 BP Location: Left upper arm Patient Position: Sitting BP Cuff Size: Adult Pulse: 77 SpO2: 99% Weight: 153 lb 9.6 oz (69.7 kg) 134/70 No results found for: EGFRAFR Est GFR Non Date Value Ref Range Status 07/05/2023 93 ML/MIN/1.73 M2 Final Comment: Creatinine based estimated glomerular filtration (eGFR) in adults is calculated using the National Kidney Foundation recommended 2020 CKD-EPI equation. Estimates GFR from serum creatinine, age and sex. Testing performed or reported by [facility], a Service of [facility], [address] [place] [id number] Quentin Almeida MD, Airline Operations Agent [facility]# [id number] Chemistry Lab Units 04/03/24 16112/13/23 16207/05/23 1604 06/04/23 17004/19/23 1617 CREATININE mg/dL 0.62 0.74 0.6 0.6 [...] Plan 1. Personal history of kidney stones 74 Y/O F HTN HYPERPARATHYROIDISM AND RECURRENT KIDNEY STONES S/P PTX HTN: h/o suboptimal controlled; goal < 130/80; better per PT HBPs; still her current meds unclear Edema: improved per PT; ques cardaic vs liver vs there; Nsyn has been r/o Primary Hyperpara s/p parathyroidectomy PLAN: again need updat eneida meds; titrate up her BP meds as well again once we get updated med list;repeat labs to trak K and Ca level No orders of the defined types were placed in this encounter. Return in about 1 year (around 08/11/2025). Carlos Manuel Wagoner MD Vitals reviewed. Constitutional: She appears well-developed. No distress. Cardiovascular: Normal rate, regular rhythm and normal heart sounds. She exhibits no edema. Pulmonary/Chest: Effort normal and breath sounds normal. No respiratory distress. Abdominal: Soft. There is no abdominal tenderness. No hernia. Skin: Skin is warm and dry. Psychiatric: She has a normal mood and affect. Her behavior is normal. documented in this encounter Plan of Treatment Upcoming Encounters Date Type Department Care Team (Late st Contact Info) Description 12/15/2024 1:15 PM EDT Office Visit [facility] [address] [place] [address] Carlos Manuel Wagoner MD [address] [address] 08/10/2025 3:15 PM EDT Office Visit [facility] [address] [place] [address] Carlos Manuel Wagoner MD [address] [address] documented as of this encounter Visit Diagnoses Diagnosis Personal history of kidney stones- Primary documented in this encounter Care Teams Telesales Manager Relationship Specialty Start Date End Date Joseph Valencia MD [address] [place] [address] DR[id number] LYSSA QUEZADA PCP - General Internal Medicine 08/02/23 documented as of this encounter
--- OUTSIDE RECORDS SUMMARY | 2024-08-14 16:02 | XMS_ITS | Patient Health Record ---
Author Organization [facility] Address [address] [place] [address] Care Team Providers Care Seconds Handler Name Role Phone Joseph Valencia MD Primary Care Provider George Reese Unavailable [phone] George Dias MD Unavailable Unavailable Allergies Allergen (clinical drug ingredient) Drug/Non Drug Allergy documented on EMR Reaction Allergy Type Onset Date Status codeine Codeine Unknown Drug Allergy Active Substance with sulfonamide structure and antibacterial mechanism of action (substance) Sulfa (uncoded) Unknown Allergy Active Penicillin (uncoded) Unknown Allergy Active Results Component Value Reference Range Notes Pathology Reviewed date:01/17/2024 02:55:38 PM Interpretation: Performing Lab:[facility], [address] [place] [phone] Notes/Report: Name: Daja Ann Age/Sex: 73/F : 1950 Unit#: [id number] Attend Dr: George Nguyen MD Re01/04/24 Status : [facility] Location: [facility] Disch: SPEC : [id number] RECD : 01/04/24 STATUS: YONG STACY NUM: [id number] FAVIOLA: 01/04/24 [facility] DR: George Nguyen MD ENTERED: 01/04/2414 43 [...] Daja Ann Age/Sex: 73/F : 1950 Unit#: [id number] Attend Dr: George Nguyen MD Re01/04/24 Status : [facility] Location: [facility] Disch: SPEC : [id number] RECD : 01/04/24 STATUS: YONG STACY NUM: [id number] FAVIOLA: 01/04/248 [facility] DR: George Nguyen MD ENTERED: 01/04/2414 43 SP TYPE: Surgical OTHR DR: Joseph Valencia MD ORDERED: ELSA Stain/9, Gross Micro L4/3 Gross Description (Continued) CEDS Copies To: Joseph Valencia MD [facility] [address] [place] [address] Drive [address] [place], [place] [id number] George Nguyen MD [facility] [address] [place] [address] Signed (si gnature on file) Kim Pearson [...] Problem Status W/U Status Risk Notes Problem 80054392 Epigastric abdominal pain (R10.13) Active confirmed Problem Screening for malignant neoplasm of colon (104515301) Encounter for screening for malignant neoplasm of colon (Z12.11) Active confirmed Problem History of polyp of colon (situation) (145245479) Personal history of colonic polyps (Z86.010) Active confirmed Problem Diverticular disease of colon (786003479) Diverticulosis of large intestine without perforation or abscess without bleeding (K57.30) Active confirmed Problem 262172643 Gastroesophageal reflux disease, esophagitis presence not specified (K21.9) Active confirmed Problem 82172856 Rectal bleed (K62.5) Active confirmed Problem Benign neoplasm of colon (97387659) 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 Outpatient [address] [place] [phone] 01/04/2024 George Nguyen Colon cancer screeni Z12.11 ; Colon polyps K63.5 ; Ulcerative colitis K51.90 and Diverticulosis of large intestine without perforation or abscess without bleeding K57.30 [facility] [address] [place] [address] 09/26/2023 George Nguyen Rectal bleed K62.5 ; Gastroesophageal reflux disease, esophagitis presence not specified K21.9 ; Tubulovillous adenoma of colon K63.5 ; Proctitis K62.89 and Encounter for screening for malignant neoplasm of colon Z12.11 [facility] [address] [place] [phone] 06/11/2024 George Nguyen Ulcerative colitis K51.90 ; Encounter for screening for malignant neoplasm of colon Z12.11 and Personal history of colonic polyps Z86.010 [facility] [address] [place] [address] 10/23/2023 George Nguyen [facility] [address] [place] [phone] 12/31/2023 George Nguyen [facility] [address] [place] [phone] 01/03/2024 George Nguyen [facility] [address] [place] [phone] 01/05/2024 George Nguyen [facility] [address] [place] [phone] 02/02/2024 George Nguyen [facility] [address] [place] [phone] 02/06/2024 George Nguyen [facility] [address] [place] [phone] 02/11/2024 George Nguyen [facility] [address] [place] [phone] 03/05/2024 George Nguyen [facility] [address] [place] [address] 04/02/2024 George Nguyen [facility] [address] [place] [phone] 06/17/2024 George Nguyen Assessments Encounter Date Diagnosis [...] Provider Name:George Nguyen , 10/15/2024 04:20:00 PM, [address] [place] [address], [address], [place], [address], Insurance Providers Payer Name Payer Address Payer Phone Subscriber Number Group Number Insured Name Patient Relationship to Insured Coverage Start Date Coverage End Date [facility] [address] [place] [phone] [id number] DAJA ANN Self - patient is the insured Medical (General) History Medical History History ICD Code Lung cancer - 1998--Removed upper right lobe Breast cancer-1998 Left--surgery and XRT ; and 03/2019 Right--surgery and XRT GERD Overactive parathyroid Anxiety Arthritis Colonoscopy in 2004 was neg. except for a hyperplastic polyp Denies [place],DM,CVA,renal disease COPD Colonscopy in 01/2020 with a [...] [place]onte 01/2023 Parathyroid surgery scheduiled for at [facility]--Dr. Arroyo
--- OUTSIDE RECORDS SUMMARY | 2024-08-14 16:02 | XMS_ITS | Patient Health Record ---
Author Organization George Dias III, MD Address [address] [place] [address] Care Team Providers Care Evp Name Role Phone Joseph Valencia MD Primary Care Provider George Ren Unavailable [phone] Allergies Allergen (clinical drug ingredient) Drug/Non Drug Allergy documented on EMR Reaction Allergy Type Onset Date Status sulfacetamide Sulfacetamide Unknown Drug Allergy Active Penicillin Unknown Drug Allergy Active codeine Codeine stomach upset Drug Allergy Act janet Results Component Value Reference Range Notes Complete Blood Count Auto Di ff Reviewed date:02/11/2024 08:40:31 AM Interpretation: Performing Lab:[facility], [address] [place] [phone] Notes/Report: White Blood Count 8.6 4.8-10.8 X10*3/uL [...] Panel Reviewed date:02/11/2024 08:40:31 AM Interpretation: Performing Lab:[address] [address] Notes/Report: Sodium 141 135-145 mmol/L Potassium 4.0 3.3-5.1 mmol/L Chloride 109 96-108 mmol/L Carbon Dioxide 24 22-29 mmol/L Anion Gap 12 12-20 Blood Urea Nitrogen 12 9-16 mg/dL Creatinine 0.64 0.5-1.4 mg/dL Estimated Glomerular Filt Rate > 60 NOTE: For -Tristanian individuals, multiply the result by 1.210. Chronic [...] Random Reviewed date:02/11/2024 08:40:31 AM Interpretation: Performing Lab:[address] [address] Notes/Report: RECEIVED Creatinine Urine 69.30 Microalbumin Urine 26.0 Microalbum/Creatinine Ratio Ur 37.5 <30 ug/mg cr Albumin/Creatinine Ratio Reference Ranges: Normal: < 30 ug/mg creatinine Microalbuminuria: 30 - 300 ug/mg creatinine Clinical Albuminuria: > 300 ug/mg creatinine Hemoglobin A1c Reviewed date:02/11/2024 08:40:31 AM Interpretation: Performing Lab:[facility], [address] [place] [phone] Notes/Report: Hemoglobin A1c % 5.6 <6.0 % [...] average glucose, using the formula of the Y9L-Fgrtnwn Average Glucose study (ADAG), Diabetes Care, Vol.31,#8, [...] Problem Status W/U Status Risk Notes Problem 7720671 Former smoker (Z87.891) Active confirmed She has been abstinent since 1998. She has a plan to prevent relapse in times of stress and illness. Problem Fibromyalgia (807739690) Fibromyalgia (M79.7) Active confirmed Her symptoms ar e stable and unchanged. Problem 237645509 Overweight (E66.3) Active confirmed This problem duron s resolved and will be removed from her problem list Problem 47839580 Allergy to sulfa drugs (Z88.2) Active confirmed Problem 868191105 GERD without esophagitis (K21.9) Active confirmed Her reflux symptoms are well controlled with hyie-dqn-ehodlhs medication. Problem 01725733 Essential hypertension (I10) Active confirmed Her blood pressure is 134/71. She is stable and no change in her regimen was needed. I recommended continued sodium restriction. Problem 47704320 Penicillin allergy (Z88.0) Active confirmed Problem 932686722244199 Hematochezia (K92.1) Active confirmed #4 days. She isn't visible streaks of red blood in her stool. She will be referred to her gastroenterologi st for colonoscopy. 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 Problem 95444547529312956 Adenocarcinoma of right lung (C34.91) Active confirmed There was no sign of her recurrent cervical new primary today. Problem 183677604 Renal cyst (N28.1) Active confirmed Diagnosis will be followed. 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 She has begun on anastrozole. She will have a radiation therapy consultation. Because of diffuse aches and pains. We have temporarily stopped anastrozole. Problem Psoriatic arthritis (688420310) Psoriatic arthritis (L40.50) Active confirmed She has [...] Provider Diagnosis George Dias III, MD [address] [place] [address] [place] [address] 09/03/2023 George Dias Ductal carcinoma in situ (DCIS) of right breast D05.11 ; Ductal carcinoma in situ (DCIS) of left breast D05.12 ; Overweight E66.3 ; Fibromyalgia M79.7 ; Hyperglycemia R73.9 ; GERD without esophagitis K21.9 ; Essential hypertension I10 ; Former smoker Z87.891 ; Psoriatic arthritis L40.50 and Adenocarcinoma of right lung C34.91 George Dias III, MD [address] [place] [address] [place] [address] 03/07/2024 George Dias Ductal carcinoma in situ (DCIS) of right breast D05.11 ; Ductal carcinoma in situ (DCIS) of left breast D05.12 ; Essential hypertension I10 ; GERD without esophagitis K21.9 ; Former smoker Z87.891 and Fibromyalgia M79.7 George Dias III, MD [address] [place] [address] [place] [address] 09/12/2023 George Dias Assessments Encounter Date Diagnosis [...] Her reflux symptoms are well controlled with wjhr-rjt-fibyyxy medication. 09/03/2023 Hyperglycemia (ICD-1 0 - R73.9) Her blood pressure is controlled and no change in her regiimen as needed. 03/07/2024 Former smoker (ICD-1 0 - Z87.891) She has been abstinent since 1998. She has a plan to prevent relapse in times of stress and illness. 09/03/2023 GERD without esophagitis (ICD-10 - K21.9) Her reflux symptoms are well controlled with basr-pdk-nrwricy medication. 03/07/2024 Fibromyalgia (ICD-10 - M79.7) Her [...] Provider Name:George Dias, 09/09/2024 04:00:00 PM, [address] [place] [address] DR, [address], [place], [address], Insurance Providers Payer Name Payer Address Payer Phone Subscriber Number Group Number Insured Name Patient Relationship to Insured Coverage Start Date Coverage End Date [facility] [address] [facility] [address] [facility] [place] [phone] [id number] DAJA POWELL Self - patient is the [...] l right kidney former smoker since 1998 [id number] son [id number] invasive ductal carcinoma left breast April [id number] [...] Lumpectomy and sentinel node biopsy left breast, [facility], Dr. Mixon 04/2021 Breast cancer surgery in 2021 2021
--- OUTSIDE RECORDS SUMMARY | 2024-08-14 16:02 | XMS_ITS ---
Author Organization [facility] Address [address] [place] [address] Care Team Providers Care Manager Utilities Name Role Phone Joseph Valencia MD Primary Care Provider Merle Lopez [phone] REASON FOR VISIT cx ON 11/05 Encounters Encounter Location Date Provider Diagnosis [address] [address] 11/01/2023 Merle Parker Plan Of Treatment No Information Progress Notes * Eliza RINCON PDOB: (73 yo F)Acc No.[id number]:11/01/2023 Patient:?Eliza Rincon :1950???Age:73 Y???Sex:Female Address:[address] [place] [address], [address] * true * Date:? Generated for Printi sabrina/Rozina/eTransmitting on:?08/14/2024 04:02 PM EDT
--- OUTSIDE RECORDS SUMMARY | 2024-08-14 16:02 | XMS_ITS ---
Author Organization [facility] Address [address] [place] [address] Care Team Providers Care Supervisor Nuclear Medicine Name Role Phone Joseph Valencia MD Primary Care Provider UnavailGeorge Ferguson [phone] George Dias MD REASON FOR VISIT Jhonny HAMMONDS/ NEED CLINICALS please .. what to send? Encounters Encounter Location Date Provider Diagnosis [facility] [address] [place] [address] 06/17/2024 George Nguyen Plan Of Treatment Next Appt Details Provider Name:George Nguyen , 10/15/2024 04:20:00 PM, [address] [facility] [address], [address], [place], [address], Progress Notes * DAJA YOUNG PDOB: (74 yo F)Acc No.[id number]:06/17/2024 Patient:?MARLIN YOUNG :1950???Age:74 Y???Sex:Female Address:[address] [place], [place] [address] [place] [address] * true * Date:? Generated for Printi ng/Faxing/eTransmitting on:?08/14/2024 04:02 PM EDT
--- OUTSIDE RECORDS SUMMARY | 2024-08-14 16:02 | XMS_ITS ---
Author Organization George Dias III, MD Address [address] [place] [address] Care Team Providers Care Licensed Chemical Spray Technician Name Role Phone Joseph Valencia MD Primary Care Provider George Ren Unavailable [phone] Allergies Allergen (clinical drug ingredient) Drug/Non Drug [...] Provider Diagnosis George Dias III, MD [address] [place] [address] [place] [address] 09/03/2023 George Dias Ductal carcinoma in situ [...] Her reflux symptoms are well controlled with xndr-fxs-ykxtusq medication. 09/03/2023 Essential hypertension (ICD-10 - I10) [...] OV Provider Name:George Dias, 09/09/2024 04:00:00 PM, [address] [place] [address] [address], [place], [address], Progress Notes * DAJA PEACE PDOB: (73 yo F)Acc No.[id number]:09/03/2023 Progress Notes Patient:?MARLIN PEACE L P Provider:?George Dias MD :1950???Age:73 Y???Sex:Female D ate:09/03/2023 Address:[address] [place], [place] [address] Pcp:Joseph Valencia MD Subjective: * Chief Complaints: [...] referred to endocrinology. She is seeing a powderer as well as a vascular surgeon for [...] Lumpectomy and sentinel node biopsy left breast, [facility], Dr. Mixon 04/2021 * Hospitalization/Major Diagno stic [...] Her reflux symptoms are well controlled with zxko-exd-gsujarq medication.?7.?Essential hypertension - I10, Her blood pressure [...] Dias MD Date:?08/13 Generated for Pina bennett/Rozina/eTransmitting on:?08/14/2024 04:01 PM EDT History and Physical Notes * HPI (History of Present Illness) Category Sub-Category Detail Notes COVID-19 Screening Questions Have you had any new onset fever, chills, cough, congestion, sore throat, shortness of breath, muscle aches?: No Have you been exposed to the virus withi n the last 10 days?: No Have you travelled internationally in [facility] last 10 days?: No Have you [...]
--- OUTSIDE RECORDS SUMMARY | 2024-08-14 16:02 | XMS_ITS ---
Author Organization [facility] Address [address] [place] [address] Care Team Providers Care Engineering Test Mechanic Name Role Phone Joseph Valencia MD Primary Care Provider UnavailGeorge Ferguson Unavailable [phone] George Dias MD Unavailable Unavailable Allergies Allergen [...] Problem History of polyp of colon (situation) (273648807) Personal history of colonic polyps (Z86.010) Active confirmed Vital Signs Temperature 98.6 degrees Fahrenheit 06/11/19 25 Blood pressure systolic 000 mm Hg 06/11/19 25 Blood pressure diastolic 00 mm Hg 025 Height 65 in 06/11/2024 Weight 150 lbs 06/11/2024 BMI 24.96 kg/m2 06/11/2024 Encounters Encounter Location Date Provider Diagnosis [facility] [address] [place] [address] 06/11/2024 George Nguyen Ulcerative colitis K51.90 ; [...] [address], [address], [place], [address], Progress Notes * DAJA YOUNG PDOB: (74 yo F)Acc No.[id number]:06/11/2024 Progress Notes Patient:?MARLIN YOUNG Provider:?George Nguyen MD :1950???Age:74 Y???Sex:Female D ate:06/11/2024 Address:[address] [place], [place] [address] Pcp:Joseph Valencia MD Subjective: * Chief Complaints: [...] to be the case based on her telephone assembler's and my opinion. She did not use [...] Aponte 3Parathyroid surgery scheduiled for 11/08/23 at [facility]--Dr. Arroyo * Hospitalization/Major Diagno stic Procedure:?No [...] sig alcohol. * Medications:?TakingTylenol E xtra Strength Sonavation Turmeric ALPRAZolam 0.5 MG Tablet as directed [...] with the patientTaking Tylenol Extra Strength Taking Sonavation Taking Turmeric Taking ALPRAZolam 0.5 MG Tablet [...] SCREEN DOC REV, Modifiers: 8P 1036F TOBACCO NON-[id number] BP SCR NOT PRFRM REC REASON NOS [...] Nguyen MD Date:? 025 Generated for Pina bennett/Rozina/Michellitting on:?08/14/2024 04:02 PM EDT History and Physical [...] to be the case based on her telephone assembler's and my opinion. She did not use [...]
--- OUTSIDE RECORDS SUMMARY | 2024-08-14 16:03 | XMS_ITS ---
Author Organization George Dias III, MD Address [address] [place] [address] [place] [address] Care Team Providers Care Plastics Nurse Name Role Phone Joseph Valencia MD Primary Care Provider George Ren [phone] REASON FOR VISIT wants lab results done on 09/10/2023 Encounters Encounter Location Date Provider Diagnosis George Dias III, MD [address] [place] [address] [place] [address] 09/12/2023 George Dias Plan Of Treatment Next Appt Details Provider Name:George Dias, 09/09/2024 04:00:00 PM, [address] [place] [address] [address] [place], [address], Progress Notes * DAJA PEACE PDOB: (73 yo F)Acc No.[id number]:09/12/2023 Patient:?MARLIN PEACE :1950???Age:73 Y???Sex:Female Address:[address] [place] [address] [place], [address] * true * Date:? Generated for Andrei sabrina/Fanenag/eTransmitting on:?08/14/2024 04:03 PM EDT
--- OUTSIDE RECORDS SUMMARY | 2024-08-14 16:03 | XMS_ITS ---
Author Organization [facility] Address [address] [place] [address] Care Team Providers Care Merchant Banker Name Role Phone Joseph Valencia MD Primary Care Provider UnavailGeorge Ferguson Unavailable [phone] George Dias MD Unavailable REASON FOR VISIT mesalamine Encounters Encounter Location Date Provider Diagnosis [facility] [address] [place] [address] 04/02/2024 George Nguyen Plan Of Treatment Next Appt Details Provider Name:George Nguyen , 10/15/2024 04:20:00 PM, [address], [address], [place], [address], Progress Notes * DAJA YOUNG PDOB: (74 yo F)Acc No.[id number]:04/02/2024 Patient:?MARLIN YOUNG :1950???Age:74 Y???Sex:Female Address:[address] [place] [address] * true * Date:? Generated for Pina bennett/Rozina/eTransmitting on:?08/14/2024 04:03 PM EDT
--- OUTSIDE RECORDS SUMMARY | 2024-08-14 16:03 | XMS_ITS | Patient Health Record ---
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) Active confirmed Encounters Encounter Location Date Provider Diagnosis [facility] [place] [address] [place] [address] 11/01/2023 Merle Parker Plan Of Treatment Pending [...] Date [employer] [place] Medicare Advantage One [facility] [address] [place] [id number] Eliza Shields Self - patient is the insured Medical (General) History Medical History History ICD Code Anxiety Back,Hip,and Knee pain Cancer Hiatal hernia Sciatica Psoriasis/eczema Stomach ulcer hyperparathyroidism Surgical History Surgery Date(Month/Year) lung lobectomy right and left 1998
== END 2024-08-14 14:32 | disposition home or self-care (01) ==
LOC: HO.MAMMO 14:31
PROVIDERS: PCP Internal Medicine; Visit Provider Student in an Organized Health Care Education/Training Program
DX: M81.0 Age-related osteoporosis without current pathological fracture (principal)
CPT/HCPCS: 77081

== ENCOUNTER 2024-08-19 15:27 | Outpatient (REF) | payer MEDICARE, SELFPAY ==
--- NOTE | ~2024-08-19 | CT_ITS ---
EXAMINATION: CT ABDOMEN AND PELVIS WITHOUT CONTRAST CLINICAL INFORMATION: Kidney stone. COMPARISON: Renal ultrasound 07/01/2024 TECHNIQUE: Multidetector volumetric imaging was performed from the superior aspect of the liver through the pubic symphysis. Sagittal and coronal reformatted images were obtained on the technologist's workstation. This CT examination was performed using dose optimization techniques as appropriate, variously including the following: *Automated exposure control *Adjustment of mA and/or kV according to patient size (this includes techniques or standardized protocols for targeted exams where dose is matched to indication/reason for exam; i.e. extremities or head) *Use of iterative reconstruction technique DLP: 493 mGy/cm. FINDINGS: LUNG BASES: Heart size is normal with thick mitral valve calcification. No pericardial effusion seen. There is a right anterior segment lower lobe pleural thickening and's scarring LIVER, GALLBLADDER, AND BILIARY TREE: The liver is normal in size, shape, and attenuation. No focal hepatic lesion or biliary ductal dilatation is present. The gallbladder is unremarkable with no evidence of radiopaque gallstones, gallbladder wall thickening, or obvious pericholecystic inflammatory changes. PANCREAS: Unremarkable. SPLEEN: Unremarkable. ADRENAL GLANDS: Unremarkable. KIDNEYS AND URETERS: There is bilateral nephrolithiasis with dilated right kidney pelvis secondary to UPJ obstruction. No obstructive stone is seen at the UPJ. There is 6 mm calculi seen in right kidney lower pole calyx, upper pole calyx and dependent segment of dilated right kidney pelvis. 6 mm radiopaque calculi seen in the mid and lower pole calyx left kidney BLADDER: The bladder is contracted. GASTROINTESTINAL TRACT: There is moderate scattered stool and diverticuli seen throughout the colon without distention. The small bowel loops are normal caliber. Appendix is not visualized. The stomach is nondistended. ABDOMINAL WALL: No significant hernia is appreciated. LYMPH NODES: Normal. VASCULAR: Mild discogenic calcification of abdominal aorta is noted. No aneurysmal dilatation. PELVIC VISCERA: The uterus is anteverted and unremarkable. No adnexal mass or free fluid seen. Few phleboliths are noted. OSSEOUS STRUCTURES: There are degenerative changes L2-3, L1-with disc levels with mild ventral spondylosis. There is mild levoscoliosis. Bilateral L5 to exclude, L4-5 facet joint arthropathy is noted. CT/CT kidney stone IMPRESSION: Bilateral nephrolithiasis. A dilated right kidney pelvis likely secondary to UPJ stricture or narrowing. No obstructive calculi seen at the UPJ. There are 6 mm radiopaque calculi in right kidney lower pole, midpole and a dilated right kidney pelvis. Nonobstructive left renal calculi without hydronephrosis. Mild constipation. Fleischner guidelines were followed. Electronically signed by: Esequiel Hdez MD 08/19/2024 04:45 PM EDT RP
--- NOTE | ~2024-08-19 | XR_ITS ---
EXAMINATION: X-ray knee bilaterally CLINICAL INFORMATION: Bilateral primary osteoarthrosis/osteoarthritis, knee TECHNIQUE: 2 views, both knees. COMPARISON: None FINDINGS: Right knee: Joint space narrowing involving mostly the medial compartment with sclerosis along the articular surface of the medial tibial plateau. No acute cortical disruption or malalignment. No lytic or blastic lesion. No suprapatellar bursa joint effusion. Left knee: Joint space narrowing involving mostly the medial compartment. There is sclerosis along the articular surface of the medial tibial plateau. No acute cortical disruption or malalignment. No suprapatellar bursa joint effusion. XR/XR Knee Damian 1or 2V IMPRESSION: Bicompartmental osteoarthrosis involving mostly the medial compartment both knees. Electronically signed by: Felipe Nicholas MD 08/20/2024 08:00 AM EDT
[2024-08-19 17:37] LABS: Anion Gap 11 (12-20); Blood Urea Nitrogen 22 mg/dL (9-16); Carbon Dioxide 28 mmol/L (22-29); Chloride 108 mmol/L (96-108); Cholesterol 209 mg/dL (<200); Estimated Glomerular Filt Rate > 60; Glucose Random 88 mg/dL (60-115); HDL Cholesterol 71 mg/dL (>40); LDL Cholesterol Calculated 117 mg/dL (<100); Potassium 4.3 mmol/L (3.3-5.1); Sodium 143 mmol/L (135-145); Triglycerides 107 mg/dL (<150)
[2024-08-19 17:42] LABS: B Type Natriuretic Peptide 261 pg/mL (<100)
--- OUTSIDE RECORDS SUMMARY | 2024-08-19 18:24 | XMS_ITS | Encounter Summary ---
Author Organization [facility] Address [address] [address] Phone Care Team Providers Care Medical Laboratory Scientist Name Role Phone Joseph Valencia MD Primary Care Provider [phone] Reason for Visit * Reason Comments Med Change Request Encounter Details Date Type Department Care Team ([facility] Contact Info) Description 08/18/2024 Refill [facility] [address] [address] Kiran Dickerson MD [address] [address] Social History Tobacco Use Types [...] Department Care Team (Late Contact Info) Description 12/15/2024 1:15 PM EDT Office Visit [facility] [address] [place] [address] Carlos Manuel Wagoner MD [address] [address] 08/10/2025 3:15 PM EDT Office Visit [facility] [address] [place] [address] Carlos Manuel Wagoner MD [address] [facility] [address] [place] [address] documented as of this encounter Visit Diagnoses Not on filedocumented in this encounter Care Teams Medical Laboratory Scientist Relationship Specialty Start Date End Date Joseph Valencia MD [address] [place] [address] [address] [place] PCP - General Internal Medicine 08/02/23 documented as of this encounter
--- OUTSIDE RECORDS SUMMARY | 2024-08-19 18:24 | XMS_ITS | Encounter Summary ---
Author Organization [facility] Address [address] [address] Phone Care Team Providers Care Supervisor Poultry Processing Name Role Phone Joseph Valencia MD Primary Care Provider [phone] Reason for Visit * Reason Comments Med Change Request Encounter Details Date Type Department Care Team ([facility] Contact Info) Description 08/18/2024 Refill [facility] [address] [address] Kiran Dickerson MD [address] [address] Social History Tobacco Use Types [...] Office Visit [facility] [address] [place] [address] Carlos Manuel Wagoner MD [address] [address] 08/10/2025 3:15 PM EDT Office Visit [facility] [address] [place] [address] Carlos Manuel Wagoner MD [address] [facility] [address] [place] [address] documented as of this encounter Visit Diagnoses Not on filedocumented in this encounter Care Teams Supervisor Poultry Processing Relationship Specialty Start Date End Date Joseph Valencia MD [address] [place] [address] [address] [place] PCP - General Internal Medicine 08/02/23 documented as of this encounter
--- OUTSIDE RECORDS SUMMARY | 2024-08-19 18:24 | XMS_ITS | Patient Health Record ---
Author Organization [facility] Address [address] [place] [address] Care Team Providers Care Electrician Machine Shop Name Role Phone Joseph Valencia MD Primary Care Provider George Reese Unavailable [phone] George Dias MD Unavailable Unavailable Allergies Allergen (clinical drug ingredient) Drug/Non Drug Allergy documented on EMR Reaction Allergy Type Onset Date Status codeine Codeine Unknown Drug Allergy Active Substance with sulfonamide structure and antibacterial mechanism of action (substance) Sulfa (uncoded) Unknown Allergy Active Penicillin (uncoded) Unknown Allergy Active Results Component Value Reference Range Notes Pathology Reviewed date:01/17/2024 02:55:38 PM Interpretation: Performing Lab:[facility], [address] [place] [phone] Notes/Report: Name: Daja Ann Age/Sex: 73/F : 1950 Unit#: [id number] Attend Dr: George Nguyen MD Re01/04/24 Status : [facility] Location: [facility] Disch: SPEC : [id number] RECD : 01/04/24 STATUS: YONG STACY NUM: [id number] FAVIOLA: 01/04/[address] [facility] [address]: George Nguyen MD ENTERED: 01/04/2414 [...] Daja Ann Age/Sex: 73/F : 1950 Unit#: [id number] Attend Dr: George Nguyen MD Re01/04/24 Status : [facility] Location: [facility] Disch: SPEC : [id number] RECD : 01/04/24 STATUS: YONG STACY NUM: [id number] FAVIOLA: 01/04/[address] [facility] [address]: George Nguyen MD ENTERED: 01/04/2414 43 SP TYPE: Surgical OTHR DR: Joseph Valencia MD ORDERED: ELSA Stain/9, Gross Micro L4/3 Gross Description (Continued) CEDS Copies To: Joseph Valencia MD [facility] [address] [place] [address] Drive [address] [place], [place] [phone] George Nguyen MD [facility] [address] [place] [address] Signed (si gnature on file) Kim Pearson [...] Problem Status W/U Status Risk Notes Problem 04653868 Epigastric abdominal pain (R10.13) Active confirmed Problem Screening for malignant neoplasm of colon (905651685) Encounter for screening for malignant neoplasm of colon (Z12.11) Active confirmed Problem History of polyp of colon (situation) (292304311) Personal history of colonic polyps (Z86.010) Active confirmed Problem Diverticular disease of colon (704060724) Diverticulosis of large intestine without perforation or abscess without bleeding (K57.30) Active confirmed Problem 532590958 Gastroesophageal reflux disease, esophagitis presence not specified (K21.9) Active confirmed Problem 39910529 Rectal bleed (K62.5) Active confirmed Problem Benign neoplasm of colon (73216832) 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 Problem Ulcerative colitis (12225074) Ulcerative colitis (K51.90) Active confirmed Problem Proctitis (5496982) 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) Active confirmed Problem Diverticulosis of colon (739020236) Diverticulosis of colon (K57.30) Active confirmed Vital Signs Temperature 98.6 degrees Fahrenheit 06/11/2024 Blood pressure diastolic 00 mm Hg 06/11/2024 Height 65 in 06/11/2024 Blood pressure systolic 000 mm Hg 06/11/2024 Weight 150 lbs 06/11/2024 BMI 24.96 kg/m2 06/11/2024 Encounters Encounter Location Date Provider Diagnosis [facility] [address] [place] [phone] 01/04/2024 George Nguyen Colon cancer screeni Z12.11 ; Colon polyps K63.5 ; Ulcerative colitis K51.90 and Diverticulosis of large intestine without perforation or abscess without bleeding K57.30 [facility] [address] [place] [address] 09/26/2023 George Nguyen Rectal bleed K62.5 ; Gastroesophageal reflux disease, esophagitis presence not specified K21.9 ; Tubulovillous adenoma of colon K63.5 ; Proctitis K62.89 and Encounter for screening for malignant neoplasm of colon Z12.11 [facility] [address] [place] [address] 06/11/2024 George Nguyen Ulcerative colitis K51.90 ; Encounter for screening for malignant neoplasm of colon Z12.11 and Personal history of colonic polyps Z86.010 [facility] [address] [place] [address] 10/23/2023 George Nguyen [facility] [address] [place] [address] 12/31/2023 George Nguyen [facility] [address] [place] [phone] 01/03/2024 George Nguyen [facility] [address] [place] [phone] 01/05/2024 George Nguyen [facility] [address] [place] [phone] 02/02/2024 George Nguyen [facility] [address] [place] [phone] 02/06/2024 George Nguyen [facility] [address] [place] [address] 02/11/2024 George Nguyen [facility] [address] [place] [phone] 03/05/2024 George Nguyen [facility] [address] [place] [address] 04/02/2024 George Nguyen [facility] [address] [place] [phone] 06/17/2024 George Nguyen Assessments Encounter Date Diagnosis [...] Provider Name:George Nguyen , 10/15/2024 04:20:00 PM, [address] [place] [address], [address], [place], [address], Insurance Providers Payer Name Payer Address Payer Phone Subscriber Number Group Number Insured Name Patient Relationship to Insured Coverage Start Date Coverage End Date [facility] [address] [place] [phone] [id number] DAJA ANN Self - patient is the insured Medical (General) History Medical History History ICD Code Lung cancer - 1998--Removed upper right lobe Breast cancer-1998 Left--surgery and XRT ; and 03/2019 Right--surgery and XRT GERD Overactive parathyroid Anxiety Arthritis Colonoscopy in 2004 was neg. except for a hyperplastic polyp Denies [place],DM,CVA,renal disease COPD Colonscopy in 01/2020 with a [...] Aponte 01/2023 Parathyroid surgery scheduiled for at [facility]--Dr. Arroyo
--- OUTSIDE RECORDS SUMMARY | 2024-08-19 18:24 | XMS_ITS | Encounter Summary ---
Author Organization [facility] Address [address] [address] Phone Care Team Providers Care Shelter Director Name Role Phone Joseph Valencia MD Primary Care Provider [phone] Reason for Visit * Reason Onset Date Comments Med Refill 08/19/2024 Encounter Details Date Type Department Care Team (Late Contact Info) Description 08/19/2024 Refill [facility] [address] [phone] Rita Milner [address] [phone] Social History Tobacco Use Types Packs/Day Years [...] Office Visit [facility] [address] [place] [phone] Carlos Manuel Wagoner MD [address] [address] 08/10/2025 3:15 PM EDT Office Visit [facility] [address] [place] [address] Carlos Manuel Wagoner MD [address] [facility] [address] [place] [address] documented as of this encounter Visit Diagnoses Not on filedocumented in this encounter Care Teams Shelter Director Relationship Specialty Start Date End Date Joseph Valencia MD [address] [place] [address] DR[address] [place] PCP - General Internal Medicine 08/02/23 documented as of this encounter
--- OUTSIDE RECORDS SUMMARY | 2024-08-19 18:24 | XMS_ITS | Encounter Summary ---
Author Organization [facility] Address [address] [address] Phone Care Team Providers Care Cat Scan Tech Name Role Phone Joseph Valencia MD Primary Care Provider [phone] Reason for Visit * Reason Comments Med Change Request Encounter Details Date Type Department Care Team ([facility] Contact Info) Description 08/15/2024 Refill [facility] [address] [address] Carlos Manuel Wagoner MD [facility] [address] [address] Social History Tobacco Use Types [...] Office Visit [facility] [address] [place] [address] Carlos Manuel Wagoner MD [address] [address] 08/10/2025 3:15 PM EDT Office Visit [facility] [address] [place] [address] Carlos Manuel Wagoner MD [address] [facility] [address] [place] [address] documented as of this encounter Visit Diagnoses Not on filedocumented in this encounter Care Teams Cat Scan Tech Relationship Specialty Start Date End Date Joseph Valencia MD [address] [place] [address] DR[address] RED CLOUD MD PCP - General Internal Medicine 08/02/23 documented as of this encounter
--- OUTSIDE RECORDS SUMMARY | 2024-08-19 18:24 | XMS_ITS ---
Author Organization [facility] Address [address] [place] [address] Care Team Providers Care Parts Clerk Name Role Phone Joseph Valencia MD Primary Care Provider Merle Lopez [phone] Encounters Encounter Location Date Provider Diagnosis [address] [address] 11/06/2023 Merle Parker Plan Of Treatment No Information Progress Notes * Eliza RINCON PDOB: (74 yo F)Acc No.[id number]:11/06/2023 Progress Notes Patient:?Eliza RINCON Provider:?Merle Parker DPM :1950???Age:73 Y???Sex:Female D ate:11/06/2023 Address:[address] [place], [place] [phone] Pcp:Joseph Valencia MD Subjective: * Chief Complaints: [...] Parker DPM Date:? Generated for Pina bennett/Rozina/eTransmitting on:?08/19/2024 06:24 PM EDT
--- OUTSIDE RECORDS SUMMARY | 2024-08-19 18:24 | XMS_ITS ---
Author Organization [facility] Address [address] [place] [address] Care Team Providers Care Director Of Athletics Name Role Phone Joseph Valencia MD Primary Care Provider UnavailGeorge Ferguson Unavailable [phone] George Dias MD Unavailable Unavailable Allergies Allergen [...] Problem History of polyp of colon (situation) (812406643) Personal history of colonic polyps (Z86.010) Active confirmed Vital Signs Temperature 98.6 degrees Fahrenheit 06/11/19 25 Blood pressure systolic 000 mm Hg 06/11/19 25 Blood pressure diastolic 00 mm Hg 025 Height 65 in 06/11/2024 Weight 150 lbs 06/11/2024 BMI 24.96 kg/m2 06/11/2024 Encounters Encounter Location Date Provider Diagnosis [facility] [address] [place] [address] 06/11/2024 George Nguyen Ulcerative colitis K51.90 ; [...] [address], [address], [place], [address], Progress Notes * DAJA YOUNG PDOB: (74 yo F)Acc No.[id number]:06/11/2024 Progress Notes Patient:?MARLIN YOUNG Provider:?George Nguyen MD :1950???Age:74 Y???Sex:Female D ate:06/11/2024 Address:[address] [place] [address] [place] [phone] Pcp:Joseph Valencia MD Subjective: * Chief Complaints: [...] to be the case based on her coater helper's and my opinion. She did not use [...] 3Parathyroid surgery scheduiled for 11/08/23 at [facility]--Dr. Arroyo * Hospitalization/Major Diagno stic Procedure:?No [...] sig alcohol. * Medications:?TakingTylenol E xtra Strength Sqeeqee Turmeric ALPRAZolam 0.5 MG Tablet as directed [...] with the patientTaking Tylenol Extra Strength Taking Sqeeqee Taking Turmeric Taking ALPRAZolam 0.5 MG Tablet [...] SCREEN DOC REV, Modifiers: 8P 1036F TOBACCO NON-[id number] BP SCR NOT PRFRM REC REASON NOS [...] Nguyen MD Date:? 025 Generated for Pina bennett/Rozina/Annabel on:?08/19/2024 03:23 PM EDT History and Physical Notes * [...] to be the case based on her coater helper's and my opinion. She did not use [...]
--- OUTSIDE RECORDS SUMMARY | 2024-08-19 18:24 | XMS_ITS | Encounter Summary ---
Author Organization [facility] Address [address] [address] Phone Care Team Providers Care Pump Servicer Helper Name Role Phone Joseph Valencia MD Primary Care Provider [phone] Reason for Visit * Reason Comments Med Change Request Encounter Details Date Type Department Care Team ([facility] Contact Info) Description 08/17/2024 Refill [facility] [address] [address] Carlos Manuel Wagoner MD [facility] [address] [address] Social History Tobacco Use Types [...] Office Visit [facility] [address] [place] [address] Carlos Manuel Wagoner MD [address] [address] 08/10/2025 3:15 PM EDT Office Visit [facility] [address] [place] [address] Carlos Manuel Wagoner MD [address] [facility] [address] [place] [address] documented as of this encounter Visit Diagnoses Not on filedocumented in this encounter Care Teams Pump Servicer Helper Relationship Specialty Start Date End Date Joseph Valencia MD [address] [place] [address] [address] [place] PCP - General Internal Medicine 08/02/23 documented as of this encounter
--- OUTSIDE RECORDS SUMMARY | 2024-08-19 18:24 | XMS_ITS | Clinical Summary ---
Author Organization [facility] Address [address] [facility] [address] [place] [address] Phone Care Team Providers Care Telecommunications Field Technician Name Role Phone Joseph Valencia MD Primary Care Provider [phone] Allergies Active Allergy Reactions Criticality Noted Date [...] ATTACHED FOR DETAILED DIRECTIONS 360 tablet 1 08/19/19 25 Active carvedilol (COREG) 3.125 MG tablet [...] DETAILED DIRECTIONS 360 tablet 1 07/30/19 25 025 Discontinued carvedilol (COREG) 3.125 MG tablet PLEASE SEE ATTACHED FOR DETAILED DIRECTIONS 360 tablet 1 07/30/19 25 025 Discontinued carvedilol (COREG) 3.125 MG tablet PLEASE SEE ATTACHED FOR DETAILED DIRECTIONS 360 tablet 1 08/17/19 25 025 Discontinued carvedilol (COREG) 3.125 MG tablet PLEASE SEE ATTACHED FOR DETAILED DIRECTIONS 360 tablet 1 08/19/19 25 025 Discontinued carvedilol (COREG) 3.125 MG tablet PLEASE SEE ATTACHED FOR DETAILED DIRECTIONS 360 tablet 1 08/19/19 25 025 Discontinued Active Problems Problem Noted Date Diagnosed Date Essential (primary) hypertension 10/29/2023 Personal history of kidney stones 10/29/2023 Other secondary hypertension 08/02/2023 Encounters Date Type Department Care Team Description 08/19/2024 Refill [facility] [address] [address] Kiran Dickerson MD 08/19/2024 Refill [facility] [address] [address] Rita Milner 08/18/2024 Refill [facility] [address] [address] Kiran Dickerson MD 08/18/2024 Refill [facility] [address] [address] Kiran Dickerson MD 08/17/2024 Refill [facility] [address] [address] Carlos Manuel Wagoner MD 08/15/2024 Refill [facility] [address] [address] Carlos Manuel Wagoner MD 08/11/2024 3:15 PM EDT Office Visit [facility] [place] [address] [place] [address] Carlos Manuel Wagoner MD Personal history of kidney stones (Primary Dx) 07/29/2024 Refill [facility] [address] [address] Carlos Manuel Wagoner MD 07/27/2024 Refill [facility] [address] [address] Carlos Manuel Wagoner MD 06/19/2024 2:00 PM EST Telemedicine [facility] the [address] [place] [address] Carlos Manuel Wagoner MD Personal history of [...] Office Visit [facility] [address] [place] [address] Carlos Manuel Wagoner MD [address] [address] 08/10/2025 3:15 PM EDT Office Visit [facility] [address] [place] [address] Carlos Manuel Wagoner MD [address] [phone] Health Maintenance Due Date Last Done Comments [...] patient's age to complete this topic Insurance Member Subscriber Plan / Payer (Ef fective 2017-Present) Name:Eliza Ann Relation to Subscriber:Self Name:Eliza Ann Payer ID:Not on file Type:Not on file Address: [place] [phone] Care Teams Telecommunications Field Technician Relationship Specialty Start Date End Date Joseph Valencia MD [address] [place], [place] PCP - General Internal Medicine 08/02/23
--- OUTSIDE RECORDS SUMMARY | 2024-08-19 18:24 | XMS_ITS ---
Author Organization George Dias III, MD Address [address] [place] [address] Care Team Providers Care Courtesy Driver Name Role Phone Joseph Valencia MD Primary Care Provider George Ren Unavailable [phone] Allergies Allergen (clinical drug ingredient) Drug/Non Drug [...] Date Provider Diagnosis George Dias III, MD [address] [place] [address] [place] [address] 09/03/2023 George Dias Ductal carcinoma in situ [...] Her reflux symptoms are well controlled with pyjw-zzv-yfplwmj medication. 09/03/2023 Essential hypertension (ICD-10 - I10) [...] OV Provider Name:George Dias, 09/09/2024 04:00:00 PM, [address] [place] [address] [address] [place], [place], [address], Progress Notes * DAJA PEACE PDOB: (73 yo F)Acc No.[id number]:09/03/2023 Progress Notes Patient:?MARLIN PEACE L P Provider:?George Dias MD :1950???Age:73 Y???Sex:Female D ate:09/03/2023 Address:[address] [place], [place] [address] Pcp:Joseph Valencia MD Subjective: * Chief Complaints: [...] referred to endocrinology. She is seeing a coat fitter as well as a vascular surgeon for [...] Lumpectomy and sentinel node biopsy left breast, [facility], Dr. Mixon 04/2021 * Hospitalization/Major Diagno [...] Her reflux symptoms are well controlled with mpmm-wur-mbynguq medication.?7.?Essential hypertension - I10, Her blood pressure [...] Dias MD Date:?08/13 Generated for Pina bennett/Rozina/eTransmitting on:?08/19/2024 03:23 PM EDT History and Physical Notes * HPI (History of Present Illness) Category Sub-Category Detail Notes COVID-19 Screening Questions Have you had any new onset fever, chills, cough, congestion, sore throat, shortness of breath, muscle aches?: No Have you been exposed to the virus withi n the last 10 days?: No Have you travelled internationally in [facility] last 10 days?: No Have you been [...]
--- OUTSIDE RECORDS SUMMARY | 2024-08-19 18:24 | XMS_ITS | Patient Health Record ---
Author Organization George Dias III, MD Address [address] [place] [address] Care Team Providers Care Senior Accounting Analyst Name Role Phone Joseph Valencia MD Primary Care Provider George Ren Unavailable [phone] Allergies Allergen (clinical drug ingredient) Drug/Non Drug Allergy documented on EMR Reaction Allergy Type Onset Date Status sulfacetamide Sulfacetamide Unknown Drug Allergy Active Penicillin Unknown Drug Allergy Active codeine Codeine stomach upset Drug Allergy Act janet Results Component Value Reference Range Notes Complete Blood Count Auto Di ff Reviewed date:02/11/2024 08:40:31 AM Interpretation: Performing Lab:[facility], [address] [place] [phone] Notes/Report: White Blood Count 8.6 4.8-10.8 X10*3/uL [...] Panel Reviewed date:02/11/2024 08:40:31 AM Interpretation: Performing Lab:[address] [address] Notes/Report: Sodium 141 135-145 mmol/L Potassium 4.0 3.3-5.1 mmol/L Chloride 109 96-108 mmol/L Carbon Dioxide 24 22-29 mmol/L Anion Gap 12 12-20 Blood Urea Nitrogen 12 9-16 mg/dL Creatinine 0.64 0.5-1.4 mg/dL Estimated Glomerular Filt Rate > 60 NOTE: For -Ethiopian individuals, multiply the result by 1.210. Chronic [...] Random Reviewed date:02/11/2024 08:40:31 AM Interpretation: Performing Lab:[address] [address] Notes/Report: RECEIVED Creatinine Urine 69.30 Microalbumin Urine 26.0 Microalbum/Creatinine Ratio Ur 37.5 <30 ug/mg cr Albumin/Creatinine Ratio Reference Ranges: Normal: < 30 ug/mg creatinine Microalbuminuria: 30 - 300 ug/mg creatinine Clinical Albuminuria: > 300 ug/mg creatinine Hemoglobin A1c Reviewed date:02/11/2024 08:40:31 AM Interpretation: Performing Lab:[facility], [address] [place] [address] Notes/Report: Hemoglobin A1c % 5.6 <6.0 % [...] average glucose, using the formula of the U1J-Lqlirkf Average Glucose study (ADAG), Diabetes Care, Vol.31,#8, [...] Problem Status W/U Status Risk Notes Problem 4523202 Former smoker (Z87.891) Active confirmed She has been abstinent since 1998. She has a plan to prevent relapse in times of stress and illness. Problem Fibromyalgia (890686074) Fibromyalgia (M79.7) Active confirmed Her symptoms ar e stable and unchanged. Problem 709499307 Overweight (E66.3) Active confirmed This problem duron s resolved and will be removed from her problem list Problem 00595217 Allergy to sulfa drugs (Z88.2) Active confirmed Problem 386629107 GERD without esophagitis (K21.9) Active confirmed Her reflux symptoms are well controlled with isbk-thj-exlrsoy medication. Problem 55386997 Essential hypertension (I10) Active confirmed Her blood pressure is 134/71. She is stable and no change in her regimen was needed. I recommended continued sodium restriction. Problem 28008572 Penicillin allergy (Z88.0) Active confirmed Problem 149803443193100 Hematochezia (K92.1) Active confirmed #4 days. She isn't visible streaks of red blood in her stool. She will be referred to her gastroenterologi st for colonoscopy. 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 I recurrent cancer in her breast is recently been detected.Her examination today was unremarkable Problem 1049436681668976 Ductal carcinoma in situ (DCIS) of right breast (D05.11) Active confirmed Her lumpectomy scar is well-healed and there are no new findings. Problem 61913530018684043 Adenocarcinoma of right lung (C34.91) Active confirmed There was no sign of her recurrent cervical new primary today. Problem 100253118 Renal cyst (N28.1) Active confirmed Diagnosis will be followed. Problem 020498335 Invasive ductal carcinoma of left breast (C50.912) Active confirmed The Oncotype DX has returned at 19, a favorable level. She has begun on anastrozole. She will have a radiation therapy consultation. Because of diffuse aches and pains. We have temporarily stopped anastrozole. Problem Psoriatic arthritis (109070183) Psoriatic arthritis (L40.50) Active confirmed She has [...] Provider Diagnosis George Dias III, MD [address] [place] [address] [place] [address] 09/03/2023 George Dias Ductal carcinoma in situ (DCIS) of right breast D05.11 ; Ductal carcinoma in situ (DCIS) of left breast D05.12 ; Overweight E66.3 ; Fibromyalgia M79.7 ; Hyperglycemia R73.9 ; GERD without esophagitis K21.9 ; Essential hypertension I10 ; Former smoker Z87.891 ; Psoriatic arthritis L40.50 and Adenocarcinoma of right lung C34.91 George Dias III, MD [address] [place] [address] [place] [address] 03/07/2024 George Dias Ductal carcinoma in situ (DCIS) of right breast D05.11 ; Ductal carcinoma in situ (DCIS) of left breast D05.12 ; Essential hypertension I10 ; GERD without esophagitis K21.9 ; Former smoker Z87.891 and Fibromyalgia M79.7 George Dias III, MD [address] [place] [address] [place] [address] 09/12/2023 George Dias Assessments Encounter Date Diagnosis [...] Her reflux symptoms are well controlled with cgzi-tot-cnuhboe medication. 09/03/2023 Hyperglycemia (ICD-1 0 - R73.9) Her blood pressure is controlled and no change in her regiimen as needed. 03/07/2024 Former smoker (ICD-1 0 - Z87.891) She has been abstinent since 1998. She has a plan to prevent relapse in times of stress and illness. 09/03/2023 GERD without esophagitis (ICD-10 - K21.9) Her reflux symptoms are well controlled with ebum-vrg-ewxigxk medication. 03/07/2024 Fibromyalgia (ICD-10 - M79.7) Her [...] Details Provider Name:George Dias, 09/09/2024 04:00:00 PM, [address] [place] [address] DR, [address], [place], [address], Insurance Providers Payer Name Payer Address Payer Phone Subscriber Number Group Number Insured Name Patient Relationship to Insured Coverage Start Date Coverage End Date [facility] [address] [facility] [address] [facility] [place] [phone] [id number] DAJA POWELL Self - patient is the [...] l right kidney former smoker since 1998 [id number] son [id number] invasive ductal carcinoma left breast April [id number] [...] Lumpectomy and sentinel node biopsy left breast, [facility], Dr. Mixon 04/2021 Breast cancer surgery in 2021 2021
--- OUTSIDE RECORDS SUMMARY | 2024-08-19 18:24 | XMS_ITS ---
Author Organization George Dias III, MD Address [address] [place] [address] Care Team Providers Care Roller Skate Assembler Name Role Phone Joseph Valencia MD Primary Care Provider George Ren Unavailable [phone] Allergies Allergen (clinical drug ingredient) Drug/Non Drug [...] Provider Diagnosis George Dias III, MD [address] [place] [address] [place] [address] 03/07/2024 George Dias Ductal carcinoma in situ [...] Her reflux symptoms are well controlled with fqid-gnr-eajiexj medication. 03/07/2024 Former smoker (ICD-10 - Z87.891) [...] Provider Name:George Dias, 09/09/2024 04:00:00 PM, [address] [place] [address] [address] [place] [address], [place], [address], Progress Notes * DAJA PEACE PDOB: (74 yo F)Acc No.[id number]:03/07/2024 Progress Notes Patient:?MARLIN PEACE P Provider:?George Dias MD :1950???Age:74 Y???Sex:Female D ate:03/07/2024 Address:[address] [place], [place] [address] , [phone] Pcp:Joseph Valencia MD Subjective: * Chief Complaints: [...] trying to get in touch with her laundry machine operator, Dr. Zee, to discuss her [...] Lumpectomy and sentinel node biopsy left breast, [facility], Dr. Mixon 1Breast cancer surgery [...] :Her reflux symptoms are well controlled with acpc-yey-lvjkyje medication.???5.?Former smoker - Z87.891???Notes :She has been [...] Dias MD Date:?02/12 Generated for Printi ng/Rozina/eTransmitting on:?08/19/2024 03:23 PM EDT History and Physical [...]
--- OUTSIDE RECORDS SUMMARY | 2024-08-19 18:24 | XMS_ITS | Encounter Summary ---
Author Organization [facility] Address [address] [address] Phone Care Team Providers Care Quality Compliance Manager Name Role Phone Joseph Valencia MD Primary Care Provider [phone] Reason for Visit * Reason Comments Med Change Request Encounter Details Date Type Department Care Team ([facility] Contact Info) Description 08/19/2024 [facility]ill [facility] [address] [address] Kiran Dickerson MD [address] [address] Social History Tobacco Use Types [...] Office Visit [facility] [address] [place] [address] Carlos Manuel Wagoner MD [address] [address] 08/10/2025 3:15 PM EDT Office Visit [facility] [address] [place] [address] Carlos Manuel Wagoner MD [address] [facility] [address] [place] [address] documented as of this encounter Visit Diagnoses Not on filedocumented in this encounter Care Teams Quality Compliance Manager Relationship Specialty Start Date End Date Joseph Valencia MD [address] [place] [address] [address] [place] PCP - General Internal Medicine 08/02/23 documented as of this encounter
--- OUTSIDE RECORDS SUMMARY | 2024-08-19 18:25 | XMS_ITS ---
Author Organization [facility] Address [address] [place] [address] Care Team Providers Care Rocket Test Fire Worker Name Role Phone Joseph Valencia MD Primary Care Provider Merle Lopez [phone] REASON FOR VISIT cx ON 11/05 Encounters Encounter Location Date Provider Diagnosis [address] [address] 11/01/2023 Merle Parker Plan Of Treatment No Information Progress Notes * Eliza RINCON PDOB: (73 yo F)Acc No.[id number]:11/01/2023 Patient:?Eliza Rincon :1950???Age:73 Y???Sex:Female Address:[address] [place] [address], [address] * true * Date:? Generated for Printi sabrina/Rozina/eTransmitting on:?08/19/2024 06:24 PM EDT
--- OUTSIDE RECORDS SUMMARY | 2024-08-19 18:25 | XMS_ITS ---
Author Organization George Dias III, MD Address [address] [place] [address] [place] [address] Care Team Providers Care Cardiovascular Sonographer Name Role Phone Joseph Valencia MD Primary Care Provider George Ren [phone] REASON FOR VISIT wants lab results done on 09/10/2023 Encounters Encounter Location Date Provider Diagnosis George Dias III, MD [address] [place] [address] [place] [address] 09/12/2023 George Dias Plan Of Treatment Next Appt Details Provider Name:George Dias, 09/09/2024 04:00:00 PM, [address] [place] [address] [place], [address], Progress Notes * DAJA PEACE PDOB: (73 yo F)Acc No.[id number]:09/12/2023 Patient:?MARLIN PEACE :1950???Age:73 Y???Sex:Female Address:[address] [place] [address] [facility] [place], [address] * true * Date:? Generated for Andrei sabrina/Fanenag/eTransmitting on:?08/19/2024 06:24 PM EDT
--- OUTSIDE RECORDS SUMMARY | 2024-08-19 18:25 | XMS_ITS ---
Author Organization [facility] Address [address] [place] [address] Care Team Providers Care Manager Special Events Name Role Phone Joseph Valencia MD Primary Care Provider UnavailGeorge Ferguson [phone] George Dias MD REASON FOR VISIT Jhonny HAMMONDS/ NEED CLINICALS please .. what to send? Encounters Encounter Location Date Provider Diagnosis [facility] [address] [place] [address] 06/17/2024 George Nguyen Plan Of Treatment Next Appt Details Provider Name:George Nguyen , 10/15/2024 04:20:00 PM, [address] [facility], [address], [place], [address], Progress Notes * DAJA YOUNG PDOB: (74 yo F)Acc No.[id number]:06/17/2024 Patient:?MARLIN YOUNG :1950???Age:74 Y???Sex:Female Address:[address] [place], [place] [address] [address] * true * Date:? Generated for Printi ng/Faxing/eTransmitting on:?08/19/2024 06:24 PM EDT
--- OUTSIDE RECORDS SUMMARY | 2024-08-19 18:25 | XMS_ITS | Patient Health Record ---
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) Active confirmed Encounters Encounter Location Date Provider Diagnosis [facility] [place] [address] [place] [address] 11/01/2023 Merle Parker Plan Of Treatment Pending [...] Date [employer] [place] Medicare Advantage [address] [facility] [address] [place] [address] [id number] Eliza Shields Self - patient is the insured Medical (General) History Medical History History ICD Code Anxiety Back,Hip,and Knee pain Cancer Hiatal hernia Sciatica Psoriasis/eczema Stomach ulcer hyperparathyroidism Surgical History Surgery Date(Month/Year) lung lobectomy right and left 1998
--- OUTSIDE RECORDS SUMMARY | 2024-08-19 18:25 | XMS_ITS ---
Author Organization [facility] Address [address] [place] [address] Care Team Providers Care Director Employment Name Role Phone Joseph Valencia MD Primary Care Provider UnavailGeorge Ferguson Unavailable [phone] George Dias MD Unavailable REASON FOR VISIT mesalamine Encounters Encounter Location Date Provider Diagnosis [facility] [address] [place] [address] 04/02/2024 George Nguyen Plan Of Treatment Next Appt Details Provider Name:George Nguyen , 10/15/2024 04:20:00 PM, [address], [address], [place], [address], Progress Notes * DAJA YOUNG PDOB: (74 yo F)Acc No.[id number]:04/02/2024 Patient:?MARLIN YOUNG :1950???Age:74 Y???Sex:Female Address:[address] [place] [address] * true * Date:? Generated for Pina bennett/Rozina/eTransmitting on:?08/19/2024 06:24 PM EDT
== END 2024-08-19 15:28 | disposition home or self-care (01) ==
LOC: HO.CT 15:27
PROVIDERS: Absent Provider Internal Medicine Rheumatology; PCP Internal Medicine; Referring Provider Nurse Practitioner Family; Visit Provider Nurse Practitioner Family
DX: N20.0 Calculus of kidney (principal); I10 Essential (primary) hypertension; I35.0 Nonrheumatic aortic (valve) stenosis; M17.0 Bilateral primary osteoarthritis of knee
CPT/HCPCS: 36415; 73560; 74176; 80048; 80061; 83880

== ENCOUNTER → 2024-08-19 15:32 | Outpatient (BNV) | payer MEDICARE, SELFPAY | PROVIDERS: Absent Provider Internal Medicine Rheumatology; PCP Internal Medicine; Referring Provider Nurse Practitioner Family; Visit Provider Radiology Diagnostic Radiology | DX: N20.0 Calculus of kidney (principal) | CPT/HCPCS: 73560; 74176 ==

== ENCOUNTER → 2024-09-09 09:59 | Outpatient (REF) | payer MEDICARE, SELFPAY ==
--- NOTE | ~2024-09-09 | NM_ITS ---
Lexiscan Myocardial perfusion study Indication: Chest pain, shortness of breath Technique: The patient was brought in for a Lexiscan perfusion study on 09/09/2024 and was injected 0.4 mg of Lexiscan intravenously. Within a minute of this injection 25 mCi of sestamibi was given intravenously. Images were obtained using the SPECT gamma camera interlaced with the gating device. Images were obtained in supine position. Resting perfusion study was performed on 09/11/2024. Patient was administered 25 mCi of sestamibi intravenously at rest. Images were then obtained in supine position. Total DLP 93 mGy-cm. Images were processed with the software and compared side to side in short axis, horizontal long axis and vertical long axis views. Findings: Raw aquisition reviewed. Arms by the patient's side. The stress perfusion study showed decreased tracer uptake in the lateral wall, towards distal part. There is improvement with CT attenuation correction suggestive of soft tissue attenuation artifact. The gated study shows normal LV systolic function with calculated LVEF of 65%. LV cavity is normal in size. The gated study shows normal wall thickening and contraction of segments. Resting study shows no significant perfusion defects. Gating at rest reveals normal wall motion with ejection fraction at 72%. The findings are consistent with reversible lateral defect suspected to be from soft tissue attenuation artifact. NM/NM cardiolite stress test Impression: 1. Myocardial perfusion imaging study shows no clear evidence of ischemia or infarction. 2. Gated LVEF is 65% during stress and 72% during rest. 3. Transient ischemic dilatation not present. EKG component of the test reported separately. Electronically signed by: Ronaldo Zee MD 09/11/2024 04:16 PM EDT
--- NOTE | 2024-09-09 10:01 | CA_ITS ---
Acquisition Time: 2024-09-09 10:13:04 Total Exercise Time: 00:02:00 Test Indications: CP,Dyspnea PAC'S Medications: SEE H&P Protocol: LEXISCAN Max HR: 92 BPM 63% of Pred: 145 BPM Max BP: 164/60 mmHG Max Work Load: 1.0 METS Pharmacological stress test with Lexiscan while pt moves her legs in chair, with reports of SOB, no chest pain, without any arrythmias, with normotensive response to injection. Nondiagnostic EKG for ischemia. In recovery, pt feeling back to baseline. Nuclear images pending. Test reviewed with Dr. Upton. Referred By: Zakia Kasper Electronically Signed By: Chandler Pereira
--- OUTSIDE RECORDS SUMMARY | 2024-09-09 11:19 | XMS_ITS | Patient Health Record ---
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) Active confirmed Encounters Encounter Location Date Provider Diagnosis [facility] [place] [address] [place] [address] 11/01/2023 Merle Parker Plan Of Treatment Pending [...] Date [employer] [place] Medicare Advantage [facility] [address] [place] [address] [id number] Eliza Shields Self - patient is the insured Medical (General) History Medical History History ICD Code Anxiety Back,Hip,and Knee pain Cancer Hiatal hernia Sciatica Psoriasis/eczema Stomach ulcer hyperparathyroidism Surgical History Surgery Date(Month/Year) lung lobectomy right and left 1998
--- OUTSIDE RECORDS SUMMARY | 2024-09-09 11:19 | XMS_ITS | Clinical Summary ---
Author Organization [facility] Address [address] [facility] [address] [place] [address] Phone Care Team Providers Care Corporate Staff Accountant Name Role Phone Joseph Valencia MD Primary Care Provider [phone] Allergies Active Allergy Reactions Criticality Noted Date [...] ATTACHED FOR DETAILED DIRECTIONS 360 tablet 1 08/21/19 25 Active carvedilol (COREG) 3.125 MG tablet [...] 08/19/2024 Refill [facility] [place] [address] [phone] Kiran Dickerson MD 08/19/2024 Refill [facility] [address] [phone] Rita Milner 08/18/2024 Refill [facility] [place] [address] [phone] Kiran Dickerson MD 08/18/2024 Refill [facility] [address] [address] Kiran Dickerson MD 08/17/2024 Refill [facility] [address] [address] Carlos Manuel Wagoner MD 08/15/2024 Refill [facility] [address] [address] Carlos Manuel Wagoner MD 08/11/2024 3:15 PM EDT Office Visit [facility] [address] [place] [address] Carlos Manuel Wagoner MD Personal history of kidney stones (Primary Dx) 07/29/2024 Refill [facility] [address] [address] Carlos Manuel Wagoner MD 07/27/2024 Refill [facility] [address] [address] Carlos Manuel Wagoner MD 06/19/2024 2:00 PM EST Telemedicine [facility] [address] [place] [address] Carlos Manuel Wagoner MD Personal history of kidney stones (Primary Dx); Essential (primary) hypertension from Last 3 Months Immunizations Immunization Administration Dates Next Due Influenza Whole 03/06/2011 [...] Office Visit [facility] [address] [place] [address] Carlos Manuel Wagoner MD [address] [address] 08/10/2025 3:15 PM EDT Office Visit [facility] [address] [place] [address] Carlos Manuel Wagoner MD [address] [phone] Health Maintenance Due Date Last Done Comments Breast Cancer Screening 1950 Colorectal Cancer Screening: Annual FOBT 1998 Colorectal Cancer Screening: Colonoscopy 1998 Colorectal Cancer Screening: Sigmoidoscopy 1998 Pneumococcal Vaccine: 50+ Years (3 of 3 - PPSV23, PCV20 or PCV21) 02/01/2015 12/07/2014, 12/05/2006 Influenza Vaccine (Season Ended) 2025 02/26/2015, 03/06/2011 Hepatitis B Vaccine Aged Out No longe r eligible based on patient's age to complete this topic Insurance [facility] Care Teams Corporate Staff Accountant Relationship Specialty Start Date End Date Joseph Valencia MD [address] [place] [address] [address] [place] PCP - General Internal Medicine 08/02/23
--- OUTSIDE RECORDS SUMMARY | 2024-09-09 11:19 | XMS_ITS ---
Author Organization [facility] Address [address] [place] [address] Care Team Providers Care Hot Die Press Feeder Name Role Phone Joseph Valencia MD Primary Care Provider Merle Lopez [phone] Encounters Encounter Location Date Provider Diagnosis [address] [address] 11/06/2023 Merle Parker Plan Of Treatment No Information Progress Notes * Eliza RINCON PDOB: (74 yo F)Acc No.[id number]:11/06/2023 Progress Notes Patient:?Eliza RINCON Provider:?Merle Parker DPM :1950???Age:73 Y???Sex:Female D ate:11/06/2023 Address:[address] [place], [place] [id number] Pcp:Joseph Valencia MD Subjective: * Chief Complaints: [...] Parker DPM Date:? Generated for Pina bennett/Rozina/eTransmitting on:?09/09/2024 11:18 AM EDT
--- OUTSIDE RECORDS SUMMARY | 2024-09-09 11:19 | XMS_ITS ---
Author Organization [facility] Address [address] [place] [address] Care Team Providers Care Pumper Gager Name Role Phone Joseph Valencia MD Primary Care Provider Merle Lopez [phone] REASON FOR VISIT cx ON 11/05 Encounters Encounter Location Date Provider Diagnosis [address] [address] 11/01/2023 Merle Parker Plan Of Treatment No Information Progress Notes * Eliza RINCON PDOB: (73 yo F)Acc No.[id number]:11/01/2023 Patient:?Eliza Rincon :1950???Age:73 Y???Sex:Female Address:[address] [place] [address], [address] * true * Date:? Generated for Printi sabrina/Rozina/eTransmitting on:?09/09/2024 11:19 AM EDT
== END ==
LOC: HO.CARD 09:59
PROVIDERS: PCP Internal Medicine; Visit Provider Nurse Practitioner Family
DX: R07.89 Other chest pain (principal)
CPT/HCPCS: 78452; 93017; A9500; J0280; J2785

== ENCOUNTER → 2024-09-09 10:01 | Outpatient (BNV) | payer MEDICARE, SELFPAY | PROVIDERS: PCP Internal Medicine | DX: R06.02 Shortness of breath (principal) | CPT/HCPCS: 78452; 93016; 93018 ==

== ENCOUNTER → 2024-09-16 16:01 | Outpatient (BNVA) | payer MEDICARE, SELFPAY | PROVIDERS: PCP Internal Medicine; Visit Provider Physician Assistant | DX: J44.9 Chronic obstructive pulmonary disease, unspecified (principal); I10 Essential (primary) hypertension; I27.20 Pulmonary hypertension, unspecified; M40.209 Unspecified kyphosis, site unspecified; M81.0 Age-related osteoporosis without current pathological fracture; Z85.3 Personal history of malignant neoplasm of breast; Z85.118 Personal history of other malignant neoplasm of bronchus and lung | CPT/HCPCS: 99202 ==

== ENCOUNTER → 2024-09-16 16:01 | Outpatient (AMB) | payer MEDICARE, SELFPAY ==
--- NOTE | 2024-09-16 16:03 | A.OFFPC_ITS ---
Vital Signs 09/16/24 16:27 Height 5 ft 4 in Weight 69.853 kg BMI 26.4 BP 140/64 H Respiration 18 Pulse 84 Pulse Source Pulse Oximeter Temp 97.7 F Temp Source Temporal Artery Scan Pulse Oximetry (%) 95 Oxygen Delivery Method Room Air Intake Visit Reasons: Routine Running Instructor Required: No Accompanied by: Self / Same As Patient Allergies codeine Allergy (Severe, Verified 09/16/24 16:15) nausea eplerenone Allergy (Severe, Verified 09/16/24 16:15) Gastrointestinal Upset Penicillins Allergy (Severe, Verified 09/16/24 16:15) Anaphylaxis sulfamethoxazole [From BACTRIM] Allergy (Severe, Verified 09/16/24 16:15) HIVES/RASH/SWELLING tamsulosin Adverse Reaction (Severe, Verified 09/16/24 16:15) cardiac Tobacco use date assessed: 09/16/24 Fall risk assessment: No Falls in past year Last assessed Fall Risk: 09/16/24 Dental Screening Dental Screen Date: 09/16/24 Did you have a dental visit in the last 12 months?: No Did you have a dental problem in the last 6 months where you did not have access to dental care?: No Was dental information given to patient?: Patient has dentist (Dentures) HPI HPI Comments History of Present Illness Details 74 year old female with complicated medi amy history inclding left breast cancer 1998 with lumpectomy with lymph node harvesting, R breast cancer treated with lumpectomy and radiation then evista followed by letrozole, osteoporosis, h yperparathroidism s/p resection 2.5 lobes, htn, asthma/copd overlasp, pulm hypertension, hx lung cancer, and ongoing work up for chest pain and palpitations presents to the office for routine follow up and to establish care. She has been following with cardiology with recent echo showing normal LV systolic function showing mild-moderate mitral regurg, but no other significant valvular abnormality. Holter without arrhythmia. Undergoing stress test. First results negative for ischemia. Describes as a chest tightness and occassional stinging Still reporting CHÁVEZ. Echo as above. Using rescue inhalers as needed. PFT from 2020 showing severe obstructive disease. Continues following with Dr. Sexton. Requesting new handicap placard form. She is also ambulating with a walking stick due to gait instabilitiy r/t osteoarthritis as well as dyspnea. She is requesting [facility] for PT in the home. She has kyphosis and is looking for further assistance in strengthening her neck as well as gait and transfer training and therapeutic exercises. [facility] Medical History (Updated 09/17/24 @ 08:39 by CASSIUS Evans) Breast cancer Essential hypertension Hypercalcemia Slow to wake up after anesthesia Hx of radiation therapy Hiatal hernia PONV (postoperative nausea and vomiting) Anemia History of kidney stones Proctitis Arthritis Anxiety Hyperparathyroidism Lung cancer GERD (gastroesophageal reflux disease) Asthma-COPD overlap syndrome Pulmonary hypertension Surgical History History of parathyroidectomy H/O cataract extraction Hx of cardiac catheterization Hx of varicose vein ligation and stripping History of lumpectomy of both breasts History of right inguinal hernia repair History of lithotripsy History of lobectomy of lung Hx of colonoscopy (~01/04/24) History of esophagogastroduodenoscopy Family History (Updated 09/16/24 @ 16:26 by FATEMEH Miguel) Mother Breast cancer Bone cancer Heart attack Father Abdominal aneurysm Enlarged heart Brother Lung cancer Brain cancer Social History (Updated 09/16/24 @ 16:26 by FATEMEH Miguel) Household Members: Family Household Members Other:: Sister Housing: House Are you a primary home care assistant to a significant other at home: Yes (Sister) Do you presently have visiting nurse or other home services: No Alcohol intake: former Patient Tobacco Use Status: Former Tobacco user Tobacco use type: Cigarette Years Smoked: 31 service: No Current occupational status: retired Cognitive needs: Yes (cane) Hearing needs: No Vision needs: Yes (Reading) Questionnaire PHQ-9 Over the last 2 weeks, how often have you been bothered by any of the following problems? 1. Little interest or pleasure in doing things: not at all 2. Feeling down, depressed, or hopeless: not at all 3. Trouble falling or staying asleep, or sleeping too much: not at all 4. Feeling tired or having little energy: not at all 5. Poor appetite or overeating: not at all 6. Feeling bad about yourself - or that you are a failure or have let yourself or your family down: not at all 7. Trouble concentrating on things, such as reading the newspaper or watching television: not at all 8. Moving or speaking so slowly that other people could have noticed. Or the opposite - being so fidgety or restless that you have been moving around a lot more than usual: not at all 9. Thoughts that you would be better off or of hurting yourself in some way: not at all Total score: 0 Source: Developed by Drs. George Raphael, Gricel Vasquez, Arya London and colleagues, with an educational da from [employer]. Thrive Questionnaire Date Thrive assessed: 09/16/24 I am a: Patient What is your living situation today?: I have a steady place to live Within the past 12 months, did the food you bought not last and you didn't have the money to get more?: Never true Within the past 12 months, did you worry whether your food would run out before you got money to buy more?: Never true Do you have trouble paying for medicines?: No Do you have trouble getting transportation to medical appointments?: No Do you have trouble paying your heating and electricity bill?: No Do you have trouble taking care of your child, family member or friend?: No Do you have trouble with day-to-day activities such as bathing, preparing meals, shopping, managing finances, etc.?: No Are you currently unemployed and looking for a job?: No Are you interested in more education?: No Please select the resources that you would like help with: None THRIVE Score: 0 AUDIT C Alcohol Use Questionnaire (AUDIT-C) 1. How often do you have a drink containing alcohol?: Never Total Score: 0 AXEL-7 AMB Questionnaire AXEL-7 Date AXEL - 7 assessed: 09/16/24 Feeling nervous, anxious, or on edge: 0 = Not at all Not being able to stop or control worryin = Not at all Worrying too much about different things: 0 = Not at all Trouble relaxin = Not at all Being so restless that it is hard to sit still: 0 = Not at all Becoming easily annoyed or irritable: 0 = Not at all Feeling afraid as if something awful might happen: 0 = Not at all Total AXEL-7 score (0-4 normal; 5-9 mild; 10-14 moderate; 15-21 severe): 0 Source: Developed by Drs. George Raphael, Gricel Vasquez, Arya London and colleagues, with an educational da from [employer]. Physical exam (Primary Care) Vital Signs: Last Vital Signs Temp 97.7 F 09/16/24 16:27 Pulse 84 09/16/24 16:27 Resp 18 09/16/24 16:27 BP 140/64 H 09/16/24 16:27 Pulse Ox 95 09/16/24 16:27 Oxygen Delivery Method Room Air 09/16/24 16:27 BMI result Body Mass Index 26.4 Tobacco/Smoking Status: Tobacco use Status Tobacco use date assessed 09/16/24 09/16/24 16:30 Patient Tobacco Use Status Former Tobacco user 09/16/24 16:26 Tobacco use type Cigarette 09/16/24 16:26 PHQ-9: PHQ-9 Score PHQ-9: Total score 0 09/16/24 16:43 Thrive Assessment: Date of Thrive Assessment Date Thrive assessed 09/16/24 09/16/24 16:14 Coding Level of Care Code New Pt Level 4 (87985) Complex EM visit Add On G2211 Diagnoses Asthma-COPD overlap syndrome J44.9 Essential hypertension I10 Breast cancer C50.919 Age-related osteoporosis without current pathological fracture M81.0 Osteoporosis type: age-related Presence of current pathological fracture: without current pathological fracture Primary osteoarthritis of both knees M17.0 Osteoarthritis type: primary Kyphosis M40.209 Assessment & Plan Assessment & Plan (1) Asthma-COPD overlap syndrome: Comment: SEVERE OBSTRUCTIVE LUNG DISEASE, WITH SIGNIFICANT IMPROVEMENT AFTER BRONCHODILATOR THERAPY( ASTHMA-COPD OVERLAP SYNDROME ) DOING VERY WELL WITH THE CURRENT MEDICATION ( WIXELA )AND HAS SUBJECTIVELY IMPROVED. HOWEVER SHE IS STILL SHORT OF BREATH ON MINIMAL EXERTION. Code(s): J44.9 - Chronic obstructive pulmonary disease, unspecified Category: Medical Plan: Stable overall with current therapies. Good response to rescue inhaler. Continue maintenance inhalers. Follow up with pulmonology as scheduled. Handicap placard form completed and given to patient and scanned into system (2) Essential hypertension: Code(s): I10 - Essential (primary) hypertension Category: Medical Plan: Reasonably controlled. Continue coreg 6.25 mg BID and diltiazem as prescribed. Low sodium diet. Follow up with cardiology as scheduled next month. (3) Breast cancer: Code(s): C50.919 - Malignant neoplasm of unspecified site of unspecified female breast Category: Medical Plan: Continue letrozole. Follow up with Dr. Dias this year as scheduled (4) Osteoporosis: Comment: History: No history of fragility fracture. History of hyperparathyroidism followed by endocrinology. DXA 09/05 lowest T-score -2.9 left femoral neck,-2.7 left total hip, -1.4 L-spine, left forearm -2.6. VFA 02/2023 without compression fracture. Alendronate started 05/28/2023-01/2024 Dr. Michael did not refill at follow-up visit in deferred further management to endocrinology. Code(s): M81.0 - Age-related osteoporosis without current pathological fracture Category: Medical Qualifiers: Osteoporosis type: age-related Presence of current pathological fracture: without current pathological fracture Qualified Code(s): M81.0 - Age- related osteoporosis without current pathological fracture Plan: Will check vitamin D and calcium levels. History of hyperparathyroidism. Recent DXA reviewed. She will continue following with [facility] endocrinology (5) Osteoarthritis of knees, bilateral: Code(s): M17.0 - Bilateral primary osteoarthritis of knee Category: Medical Qualifiers: Osteoarthritis type: primary Qualified Code(s): M17.0 - Bilateral primary osteoarthritis of knee Plan: Continue current therpaies. referral fro home PT placed for gait training, transfer training and therapeutic exercises. Continue use of walking stick. Unable to walk >200 ft without assistive device. Handicap placard form completed (6) Kyphosis: Code(s): M40.209 - Unspecified kyphosis, site unspecified Category: Medical Plan: Referral for home PT placed for strengthening Pt home bound due to gait instability/fall risk as well as significant CHÁVEZ Plan Follow up in 3 months. Labs to be completed after visit today Orders: Orders Complete Blood Count Auto Diff 09/16/24 C50.919 - Malignant neoplasm of unspecified site of unspecified female breast, I27.20 - Pulmonary hypertension, unspecified, J44.9 - Chronic obstructive pulmonary disease, unspecified, M81.0 - Age-related osteoporosis without current pathological fracture Hemoglobin A1c 05/06/25 C50.919 - Malignant neoplasm of unspecified site of unspecified female breast, I27.20 - Pulmonary hypertension, unspecified, J44.9 - Chronic obstructive pulmonary disease, unspecified, M81.0 - Age-related osteoporosis without current pathological fracture Basic Metabolic Panel 09/16/24 C50.919 - Malignant neoplasm of unspecified site of unspecified female breast, I27.20 - Pulmonary hypertension, unspecified, J44.9 - Chronic obstructive pulmonary disease, unspecified, M81.0 - Age-related osteoporosis without current pathological fracture Lipid Panel 09/16/24 C50.919 - Malignant neoplasm of unspecified site of unspecified female breast, I27.20 - Pulmonary hypertension, unspecified, J44.9 - Chronic obstructive pulmonary disease, unspecified, M81.0 - Age-related osteoporosis without current pathological fracture TSH reflex Free T4 09/16/24 C50.919 - Malignant neoplasm of unspecified site of unspecified female breast, I27.20 - Pulmonary hypertension, unspecified, J44.9 - Chronic obstructive pulmonary disease, unspecified, M81.0 - Age-related osteoporosis without current pathological fracture Vitamin D 25-OH Total 09/16/24 C50.919 - Malignant neoplasm of unspecified site of unspecified female breast, I27.20 - Pulmonary hypertension, unspecified, J44.9 - Chronic obstructive pulmonary disease, unspecified, M81.0 - Age-related osteoporosis without current pathological fracture Parathyroid Hormone Intact 09/16/24 C50.919 - Malignant neoplasm of unspecified site of unspecified female breast, I27.20 - Pulmonary hypertension, unspecified, J44.9 - Chronic obstructive pulmonary disease, unspecified, M81.0 - Age-related osteoporosis without current pathological fracture
[2024-09-16 16:27] VITALS: BP 140/64; PULSE 84; RESP 18; TEMP 36.5; O2SAT 95; BMI 26.4
--- OUTSIDE RECORDS SUMMARY | 2024-09-16 16:59 | XMS_ITS ---
Author Organization [facility] Address [address] [place] [id number] Care Team Providers Care Stacker Operator Name Role Phone Joseph Valencia MD Primary Care Provider Merle Lopez [phone] Encounters Encounter Location Date Provider Diagnosis [address] [address] 11/06/2023 Merle Parker Plan Of Treatment No Information Progress Notes * Eliza RINCON PDOB: (74 yo F)Acc No.[id number]:11/06/2023 Progress Notes Patient:?Eliza RINCON Provider:?Merle Parker DPM :1950???Age:73 Y???Sex:Female D ate:11/06/2023 Address:[address] [place], [place] [id number] Pcp:Joseph Valencia MD Subjective: * Chief Complaints: [...] Parker DPM Date:? Generated for Pina bennett/Rozina/eTransmitting on:?09/16/2024 04:59 PM EDT
--- OUTSIDE RECORDS SUMMARY | 2024-09-16 16:59 | XMS_ITS ---
Author Organization [facility] Address [address] [place] [address] Care Team Providers Care Toy Stuffer Name Role Phone Joseph Valencia MD Primary Care Provider UnavailGeorge Ferguson Unavailable [phone] George Dias MD Unavailable Unavailable Allergies Allergen [...] Problem History of polyp of colon (situation) ([id number]) Personal history of colonic polyps (Z86.010) Active confirmed Vital Signs Temperature 98.6 degrees Fahrenheit 06/11/19 25 Blood pressure systolic 000 mm Hg 06/11/19 25 Blood pressure diastolic 00 mm Hg 025 Height 65 in 06/11/2024 Weight 150 lbs 06/11/2024 BMI 24.96 kg/m2 06/11/2024 Encounters Encounter Location Date Provider Diagnosis [facility] [address] [place] [address] 06/11/2024 George Nguyen Ulcerative colitis K51.90 ; [...] [address], [address], [place], [address], Progress Notes * DAJA YOUNG PDOB: (74 yo F)Acc No.[id number]:06/11/2024 Progress Notes Patient:?MARLIN YOUNG Provider:?George Nguyen MD :1950???Age:74 Y???Sex:Female D ate:06/11/2024 Address:[address] [place], [place] [id number] Pcp:Joseph Valencia MD Subjective: * Chief Complaints: [...] to be the 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 She did not use [...] Aponte 3Parathyroid surgery scheduiled for 11/08/23 at [facility]--Dr. Arroyo * Hospitalization/Major Diagno stic Procedure:?No [...] sig alcohol. * Medications:?TakingTylenol E xtra Strength HitchedPic Turmeric ALPRAZolam 0.5 MG Tablet as directed [...] with the patientTaking Tylenol Extra Strength Taking HitchedPic Taking Turmeric Taking ALPRAZolam 0.5 MG Tablet [...] SCREEN DOC REV, Modifiers: 8P 1036F TOBACCO [id number]-[id number] BP SCR NOT PRFRM REC REASON NOS [...] MD Date:? 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 She did not use [...]
--- OUTSIDE RECORDS SUMMARY | 2024-09-16 16:59 | XMS_ITS | Patient Health Record ---
Author Organization George Dias III, MD Address [address] [facility] [place] [address] Care Team Providers Care Drug Room Operator Name Role Phone Joseph Valencia MD Primary Care Provider George Ren Unavailable [phone] Allergies Allergen (clinical drug ingredient) Drug/Non Drug Allergy documented on EMR Reaction Allergy Type Onset Date Status sulfacetamide Sulfacetamide Unknown Drug Allergy Active Penicillin Unknown Drug Allergy Active codeine Codeine stomach upset Drug Allergy Act janet Reason For Referral No Information Medications Medication SIG (Take, Route, Frequency, Duration) Notes Start Date End Date Status Xanax 0.25 MG 1 tablet Orally Thre e times a day Active Potassium Chloride Lizzie ER 1 0 MEQ 1 tablet with food Orally Twice a day Active Letrozole 2.5 MG TAKE 1 TABLET BY KAROL TH EVERY DAY FOR 30 DAYS Active Mesalamine 1000 MG 1 suppository at bedtime Rectal Once a day Active Aspir-Low 81 MG 1 tablet Orally Once a day Active Carvedilol 3.125 MG 2 tablet with food Oral Twice a day Active hydroCHLOROthiazide 12.5 MG 1 capsule in the morning Orally Once a day Active ALPRAZolam 0.5 MG 1/2 tablet Orally 4 times a day Active Clobetasol Propionate 0.05 % 1 applicati on Externally Twice a day Active Multi Vitamin - 1 tablet Orally Once a day Active Iron 28 MG 1 tablet Orally Thre e times a Week Active Omeprazole 20 MG 1 capsule 30 minutes before morning meal Orally Once a day Active Biotin 1000 MCG 1 tablet Orally Once a day Active Albuterol Sulfate HFA 108 (9 0 Base) MCG/ACT INHALE 2 PUFFS BY MOUTH EVERY 4-6 HOURS NEEDED FOR WHEEZING Inhalation Active Tylenol Extra Strength 500 MG 1 tablet a s needed Orally every 6 hrs Active Furosemide 20 MG TAKE 1 TABLET BY KAROL TH EVERY DAY FOR 30 DAYS Active Social History Tobacco Use: Social History Observation Description Date Details (start date - stop date) Former Smoker NA - NA Tobacco Use/Smoking Question Answer Notes Patient is a former smoker How long has it been since you last smoked? > 10 years Additional Findings: Tobacco Non-User Ex-cigaret te smoker Problems Problem Type SNOMED Code ICD Code Onset Dates Problem Status W/U Status Risk Notes Problem 8549416 Former smoker (Z87.891) Active confirmed She has been abstinent since 1998. She has a plan to prevent relapse in times of stress and illness. Problem Fibromyalgia (063679422) Fibromyalgia (M79.7) Active confirmed Her symptoms ar e stable and unchanged. Problem 219499356 Overweight (E66.3) Active confirmed This problem duron s resolved and will be removed from her problem list Problem 35426346 Allergy to sulfa drugs (Z88.2) Active confirmed Problem 539802011 GERD without esophagitis (K21.9) Active confirmed Her reflux symptoms are well controlled with kkob-wad-hznomqy medication. Problem 05340495 Essential hypertension (I10) Active confirmed Her blood pressure is 134/71. She is stable and no change in her regimen was needed. I recommended continued sodium restriction. Problem 09771326 Penicillin allergy (Z88.0) Active confirmed Problem 506692765421092 Hematochezia (K92.1) Active confirmed #4 days. She isn't visible streaks of red blood in her stool. She will be referred to her gastroenterologi st for colonoscopy. 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 Problem 237014356 Renal cyst (N28.1) Active confirmed Diagnosis will be followed. 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 She has begun on anastrozole. She will have a radiation therapy consultation. Because of diffuse aches and pains. We have temporarily stopped anastrozole. Problem Psoriatic arthritis (688672193) Psoriatic arthritis (L40.50) Active confirmed She has [...] Date Provider Diagnosis George Dias III, MD [address] [place] [address] [place] [address] 03/07/2024 George Dias Ductal carcinoma in situ [...] and there are no new findings. 03/07/2024 Essential hypertension (ICD-10 - I10) Her blood pressure is 134/71. She is stable and no change in her regimen was needed. I recommended continued sodium restriction. 03/07/2024 GERD without esophagitis (ICD-10 - K21.9) Her reflux symptoms are well controlled with uexl-mam-yndtvtu medication. 03/07/2024 Former smoker (ICD-10 - Z87.891) She has been abstinent since 1998. She has a plan to prevent relapse in times of stress and illness. 03/07/2024 Fibromyalgia (ICD-10 - M79.7) Her symptoms are stable and unchanged. Plan Of Treatment Pending Test Test Name [...] foot LT 2V 08/09/2021 Hemoglobin A1c 09/03/2023 Insurance Providers Payer Name Payer Address Payer Phone Subscriber Number Group Number Insured Name Patient Relationship to Insured Coverage Start Date Coverage End Date [address] [place] [phone] [id number] DAJA POWELL Self - patient is the [...] l right kidney former smoker since 1998 [id number] son [id number] invasive ductal carcinoma left breast April [id number] DCIS right breast, surgery and RT Breast Cancer in 2021, High Blood Pressu re, Ulcerated Colitis Surgical History Surgery Date(Month/Year) Breast cancer surgery in 2021 2021 Lumpectomy and sentinel node biopsy left breast, [facility], Dr. Mixon 04/2021 multiple negative endometrial biopsies Right breast lumpectomy with 2 needle lo calization (DP) 03/2019 36 weeks radiation . Left breast 11/1998 1 major vein removed- Dr. Lo 2 major veins removed right leg Lumpectomy and sentinel nodes left breas t 1998 right upper lobectomy, stage I adenocarc inoma of, Dr. Scherer 1998
--- OUTSIDE RECORDS SUMMARY | 2024-09-16 16:59 | XMS_ITS ---
Author Organization George Dias III, MD Address [address] [place] [address] Care Team Providers Care Solutions Operator Name Role Phone Joseph Valencia MD Primary Care Provider George Ren Unavailable [phone] Allergies Allergen (clinical drug ingredient) Drug/Non Drug [...] Date Provider Diagnosis George Dias III, MD [address] [place] [address] [place] [address] 03/07/2024 George Dias Ductal carcinoma in situ [...] Her reflux symptoms are well controlled with lrgx-nix-mfqvupe medication. 03/07/2024 Former smoker (ICD-10 - Z87.891) [...] * DAJA PEACE PDOB: (74 yo F)Acc No.[id number]:03/07/2024 Progress Notes Patient:?MARLIN PEACE P Provider:?George Dias MD :1950???Age:74 Y???Sex:Female D ate:03/07/2024 Address:[address] [place], [place] [address] Pcp:Joseph Valencia MD Subjective: * Chief Complaints: [...] trying to get in touch with her veterinary practice manager, Dr. Zee, to discuss her heart [...] Lumpectomy and sentinel node biopsy left breast, [facility], Dr. Mixon 1Breast cancer surgery in [...] :Her reflux symptoms are well controlled with wqzg-qwv-eackvyg medication.???5.?Former smoker - Z87.891???Notes :She has been [...] * Provider:?George Dias MD Date:?02/12 Generated for Pina bennett/Rozina/Annabel on:?09/16/2024 04:59 PM EDT History and Physical Notes * HPI (History of Present Illness) Category Sub-Category Detail Notes COVID-19 Screening Questions Have you had any new onset fever, chills, cough, congestion, sore throat, shortness of breath, muscle aches?: No Have you been exposed to the virus withi n the last 10 days?: No Have you travelled internationally in e last 10 days?: No Have you been [...]
--- OUTSIDE RECORDS SUMMARY | 2024-09-16 16:59 | XMS_ITS | Clinical Summary ---
Author Organization [facility] Address [address] [facility] [address] [place] [address] Phone Care Team Providers Care Port Warden Name Role Phone Joseph Valencia MD Primary Care Provider [phone] Allergies Active Allergy Reactions Criticality Noted Date [...] DIRECTIONS 360 tablet 1 08/21/19 25 Active potassium chloride (MICRO-K) 10 MEQ CR capsule TAKE 2 CAPSULES (20 MEQ TOTAL) BY MOUTH 1 (ONE) TIME EACH DAY PT TAKEN IT 2 TIMES A DAY 180 capsule 09/16/19 25 025 Active potassium chloride (MICRO-K) 10 MEQ CR capsule TAKE 2 CAPSULES (20 MEQ TOTAL) BY MOUTH 1 (ONE) TIME EACH DAY PT TAKEN IT 2 TIMES A DAY 180 capsule 05/03/20 24 025 Discontinued carvedilol (COREG) 3.125 MG tablet [...] Encounters Date Type Department Care Team Description 09/14/2024 Refill [facility] [address] [place] [address] Carlos Manuel Wagoner MD 08/19/2024 Refill [facility] [address] [address] Kiran Dickerson MD 08/19/2024 Refill [facility] [address] [address] Rita Milner 08/18/2024 Refill [facility] [address] [address] Kiran Dickerson MD 08/18/2024 Refill [facility] [address] [address] Kiran Dickerson MD 08/17/2024 Refill [facility] [address] [address] Carlos Manuel Wagoner MD 08/15/2024 Refill [facility] [address] [address] Carlos Manuel Wagoner MD 08/11/2024 3:15 PM EDT Office Visit [facility] [address] [place] [address] Carlos Manuel Wagoner MD Personal history of kidney stones (Primary Dx) 07/29/2024 Refill [facility] [address] [address] Carlos Manuel Wagoner MD 07/27/2024 Refill [facility] [address] [address] Carlos Manuel Wagoner MD 06/19/2024 2:00 PM EST Telemedicine [facility] [address] [place] [address] Carlos Manuel Wagoner MD Personal history of [...] Office Visit [facility] [address] [place] [address] Carlos Manuel Wagoner MD [address] [address] 08/10/2025 3:15 PM EDT Office Visit [facility] [address] [place] [address] Carlos Manuel Wagoner MD [address] [address] Health Maintenance Due Date Last [...] to complete this topic Insurance Care Teams Port Warden Relationship Specialty Start Date End Date Joseph Valencia MD [address] [place], [place] PCP - General Internal Medicine 08/02/23
--- OUTSIDE RECORDS SUMMARY | 2024-09-16 16:59 | XMS_ITS ---
Author Organization George Dias III, MD Address [address] [facility] [address] Care Team Providers Care Loom Setter Fourdrinier Name Role Phone Joseph Valencia MD Primary Care Provider George Ren Unavailable [phone] Allergies Allergen (clinical drug ingredient) Drug/Non Drug [...] Date Provider Diagnosis George Dias III, MD [address] [place] [address] [place] [address] 09/09/2024 George Dias Ductal carcinoma in situ [...] * DAJA PEACE PDOB: (74 yo F)Acc No.[id number]:09/09/2024 Progress Notes Patient:?MARLIN PEACE Provider:?George Dias MD :1950???Age:74 Y???Sex:Female D ate:09/09/2024 Address:[address] [place] [address], [place] , [id number] Pcp:Joseph Valencia MD Subjective: * Chief Complaints: * ???1. Follow Up. * HPI: ???COVID-19 Screening:?Questions?Have you had any new onset fever, chills, cough, congestion, sore throat, shortness of breath, muscle aches??No * ROS:?General/Constitutional:?pain?only normal aches and pains.?Chills?denies.?Fatigue?admits.?Fever?denies.?ENT:?Decreased hearing?denies.?Respiratory:?Cough?denies.?Cardiovascular:?Chest pain with exertion?denies.?Dyspnea on exertion?denies.?Shortness of breath?denies.?Gastrointestinal:?Constipation?denies.?Decreased appetite?denies.?Diarrhea?denies.?Heartburn?denies.?Nausea?denies.?Rectal bleeding?denies.?Vomiting?denies.?Hematology:?bruising?denies.?petechiae?denies.?Swollen glands?none have been noted.?Genitourinary:?Frequent urination?denies.?Musculoskeletal:?Muscle aches?denies.?Painful joints?denies.?Sciatica?denies.?Weakness?denies.?Skin:?Itching?denies.?Rash?denies.?Skin lesion(s)?denies.?Neurologic:?Difficulty speaking?denies.?Dizziness?denies.?Headache?denies.?Low back pain?denies.?Psychiatric:?Depressed mood?denies.? * Medical History:?stage I karina nocarcinoma right upper lobe 1998, 1998 DCIS and LCIS left breast, lumpectomy, radiation, raloxifene, age 48, Essential hypertension, GERD, Ureterolithiasis, Family history of breast cancer, maternal cousin and mother, 1998, hyperplastic rectal polyp, Abnormal stress test 2018: 4.2 x 2.5 x 2.6 complex cyst medial right kidney, Former smoker since 1998, [id number] son, [id number] invasive ductal carcinoma left breast April [id number] DCIS right breast, surgery and RT, Breast Cancer in 2021, High Blood Pressure, Ulcerated Colitis. * Surgical History:?right uppe r lobectomy, stage I adenocarcinoma of, Dr. Scherer 1998, Lumpectomy and sentinel nodes left breast 1998, 2 major veins removed right leg , 1 major vein removed- Dr. Lo , 36 weeks radiation . Left breast 11/1998, Right breast lumpectomy with 2 needle localization (DP) 03/2019, multiple negative endometrial biopsies , Lumpectomy and sentinel node biopsy left breast, [facility], Dr. Mixon 04/2021, Breast cancer surgery in 2021 2021. * Hospitalization/Major Diagno stic Procedure:?Denies Past Hospitalization. * Family History:?Father: dece ased 68 yrs, COPD, hypertension, CVD, diagnosed with HTN, CVD.?Mother: , diagnosed with CVD, Cancer.?Siblings: unknown.?Maternal Grand Father: alive, diagnosed with DM.?Maternal [...] retired and no longer smokes cigarettes. * Medications:?Taking Xanax 0. 25 MG Tablet 1 tablet Orally Three times [...] reviewed and reconciled with the patient * Allergies:?Penicillin, Sulfa cetamide, Codeine: stomach upset. Objective: * Vitals:? * Examination: ???General Examination: ?GENERAL APPEARANCE:?pleasant, well nourished, well developed, in no acute distress, calm and relaxed.?HEAD:?atraumatic, normocephalic.?EYES:?eomi, perrla, anicteric, conjugate.?EARS:?normal.?NOSE:?septum intact.?ORAL CAVITY:?normal, unremarkable.?NECK/THYROID:?no jugular venous distention, no carotid bruit, thyroid normal.?LYMPH NODES:?no enlarged lymph nodes,spleen normal.?SKIN:?no suspicious lesions, anicteric.?HEART:?no clicks, gallops, murmurs, or rubs, regular rhythm, S1, S2 normal, no s3, or vascular bruits.?LUNGS:?clear to auscultation .?BREASTS:??no masses palpable bilaterally.?ABDOMEN:?bowel sounds normal, no ascites, no organomegaly, no mass.?RECTAL EXAM:?not examined.?MUSCULOSKELETAL:?extremities unremarkable, no clubbing, cyanosis or edema.?PERIPHERAL PULSES:?normal.?NEUROLOGIC:?alert and oriented, cranial nerves 2-12 grossly intact, deep tendon reflexes 2+ symmetrical, motor strength normal upper and lower extremities, sensory exam intact.?PSYCH:?alert, oriented.? Assessment: * Assessment: 1.?Ductal carcinoma in situ (DCIS) of right breast - D05.11???Notes :Her lumpectomy scar is well-healed and there are no new findings.??? Plan: * Treatment: 2.?Others? Continue Letrozole Tablet, 2.5 MG, TAKE 1 TABLET BY MOUTH EVERY DAY FOR 30 DAYS;?Continue Furosemide Tablet, 20 MG, TAKE 1 TABLET BY MOUTH EVERY DAY FOR 30 DAYS.?? * Images: * The named appointment provid er may or may not be the originator of this progress note, and it is not deemed complete until electronically signed by the appointment provider. Sign off status: Pending * Provider:?George Dias MD Date:?08/13 Generated for Pina bennett/Rozina/Annabel on:?09/16/2024 04:59 PM [...]
--- OUTSIDE RECORDS SUMMARY | 2024-09-16 17:00 | XMS_ITS ---
Author Organization George Dias III, MD Address [address] [address] Care Team Providers Care Product Engineering Manager Name Role Phone Joseph Valencia MD Primary Care Provider George Ren [phone] REASON FOR VISIT wants lab results done on 09/10/2023 Encounters Encounter Location Date Provider Diagnosis George Dias III, MD [address] [place] [address] [place] [address] 09/12/2023 George Dias Plan Of Treatment No Information Progress Notes * DAJA PEACE PDOB: (73 yo F)Acc No.[id number]:09/12/2023 Patient:?MARLIN PEACE :1950???Age:73 Y???Sex:Female Address:[address] [place] [address], [address] * true * Date:? Generated for Printi sabrina/Ashleyg/eTransmitting on:?09/16/2024 05:00 PM EDT
--- OUTSIDE RECORDS SUMMARY | 2024-09-16 17:00 | XMS_ITS | Continuity of Care Document ---
Author Organization [facility] Address [address] [place] [address] Phone Care Team Providers Care Pin Worker Name Role Phone Yasmany KEY, GARDENIA, George [...] Telemedicine [place] & [place] [facility], [address] [place] [address] [address], [place], [id number], [place] tel:[phone] R - [place] - [place] Varicose veins of bilateral lower extremities with other complicationsL ocalized edemaCramp and spasmPruritus, unspecifiedEss ential (primary) hypertension 4 Yasmany KEY, GARDENIA, CROW Vzaquez. [address] [facility], [address], [facility], [id number] , [place]. tel:[phone] Offic Cons New/estab Mod-hi 60- [place] & [place] [facility], [address] [place] [address] [address], [place], [id number], tel:[phone] CVR - [place] - [place] Essential (primary) hypertensionPr uritus, unspecifiedPai n in left legCramp and spasmLocalized edemaVaricose veins of bilateral lower extremities with other complicationsP ain in right lower legPain in left lower legPain in right leg 4 Yasmany KEY RVT, CROW Vazquez. [address] [place] [address], [facility] [place], [place], [id number] , [place]. tel:[phone] [facility], [address] [place] [address] [address] [facility] [address], [id number], tel:[phone] CVR - [facility] Varicose veins of bilateral lower extremities with pain 4 Yasmany KEY RVT, CROW Vazquez. [address] [place] [address], Lalit willis [place], [id number] , [place]. tel:[phone] Referring Provider: George Jade MD, RVT, CROW, [address] [place] [address], [place], [address] . tel:[phone] Family History Family Member Type Diagnosis Age At Onset No Information Payers Payer name Insurance type Covered democrat ID Grayson jacome(s) [employer] CI [id number] Social History Type Description Quantity Date Captured [...]
--- OUTSIDE RECORDS SUMMARY | 2024-09-16 17:00 | XMS_ITS | Encounter Summary ---
Author Organization [facility] Address [address] [facility] [address] [place] [address] Phone Care Team Providers Care Backend Java Developer Name Role Phone Joseph Valencia MD Primary Care Provider [phone] Reason for Visit * Reason Comments Med Refill Encounter Details Date Type Department Care Team ([facility] Contact Info) Description 09/14/2024 Refill [facility] [address] [place] [address] Carlos Manuel Wagoner MD [address] [address] Social History Tobacco Use Types [...] Upcoming Encounters Date Type Department Care Team ([facility] Contact Info) Description 12/15/2024 1:15 PM EDT [facility] [address] [place] [address] Carlos Manuel Wagoner MD [address] [facility] [address] [place] [address] 08/10/2025 3:15 PM EDT Office [facility] [address] [place] [address] Carlos Manuel Wagoner MD [address] [address] documented as of this encounter Visit Diagnoses Not on filedocumented in this encounter Care Teams Backend Java Developer Relationship Specialty Start Date End Date Joseph Valencia MD [address] [place], [place] PCP - General Internal Medicine 08/02/23 documented as of this encounter
--- OUTSIDE RECORDS SUMMARY | 2024-09-16 17:00 | XMS_ITS ---
Author Organization [facility] Address [address] [place] [address] Care Team Providers Care Electric Power Superintendent Name Role Phone Joseph Valencia MD Primary Care Provider UnavailGeorge Ferguson [phone] George Dias MD REASON FOR VISIT Jhonny HAMMONDS/ NEED CLINICALS please .. what to send? Encounters Encounter Location Date Provider Diagnosis [facility] [address] [place] [address] 06/17/2024 George Nguyen Plan Of Treatment Next Appt Details Provider Name:George Nguyen , 10/15/2024 04:20:00 PM, [address] [facility], [address], [place], [address], Progress Notes * DAJA YOUNG PDOB: (74 yo F)Acc No.[id number]:06/17/2024 Patient:?MARLIN YOUNG :1950???Age:74 Y???Sex:Female Address:[address] [place], [place] [address] [place] [address] * true * Date:? Generated for Printi ng/Faxing/eTransmitting on:?09/16/2024 04:59 PM EDT
--- OUTSIDE RECORDS SUMMARY | 2024-09-16 17:00 | XMS_ITS ---
Author Organization [facility] Address [address] [place] [address] Care Team Providers Care Dampener Operator Name Role Phone Joseph Valencia MD Primary Care Provider Merle Lopez [phone] REASON FOR VISIT cx ON 11/05 Encounters Encounter Location Date Provider Diagnosis [address] [address] 11/01/2023 Merle Parker Plan Of Treatment No Information Progress Notes * Eliza RINCON PDOB: (73 yo F)Acc No.[id number]:11/01/2023 Patient:?Eliza Rincon :1950???Age:73 Y???Sex:Female Address:[address] [place] [address], [address] * true * Date:? Generated for Andrei sabrina/Rozina/eTransmitting on:?09/16/2024 05:00 PM EDT
--- OUTSIDE RECORDS SUMMARY | 2024-09-16 17:00 | XMS_ITS ---
Author Organization [facility] Address [address] [place] [address] Care Team Providers Care Statistician Name Role Phone Joseph Valencia MD Primary Care Provider UnavailGeorge Ferguson Unavailable [phone] George Dias MD Unavailable REASON FOR VISIT mesalamine Encounters Encounter Location Date Provider Diagnosis [facility] [address] [facility] [address] [place] [address] 04/02/2024 George Nguyen Plan Of Treatment Next Appt Details Provider Name:George Nguyen , 10/15/2024 04:20:00 PM, [address], [address], [place], [address], Progress Notes * DAJA YOUNG PDOB: (74 yo F)Acc No.[id number]:04/02/2024 Patient:?MARLIN YOUNG :1950???Age:74 Y???Sex:Female Address:[address] [place] [address] * true * Date:? Generated for Pina bennett/Rozina/eTransmitting on:?09/16/2024 05:00 PM EDT
--- OUTSIDE RECORDS SUMMARY | 2024-09-16 17:00 | XMS_ITS | Patient Health Record ---
Author Organization [facility] Address [address] [place] [address] Care Team Providers Care Construction Skills Teacher Name Role Phone Joseph Valencia MD Primary Care Provider George Reese Unavailable [phone] George Dias MD Unavailable Unavailable Allergies Allergen (clinical drug ingredient) Drug/Non Drug Allergy documented on EMR Reaction Allergy Type Onset Date Status codeine Codeine Unknown Drug Allergy Active Substance with sulfonamide structure and antibacterial mechanism of action (substance) Sulfa (uncoded) Unknown Allergy Active Penicillin (uncoded) Unknown Allergy Active Results Component Value Reference Range Notes Pathology Reviewed date:01/17/2024 02:55:38 PM Interpretation: Performing Lab:[facility], [address] [place] [id number] Notes/Report: Name: Daja Ann Age/Sex: 73/F : 1950 Unit#: [id number] Attend Dr: George Nguyen MD Re01/04/24 Status : [facility] Location: [facility] Disch: SPEC : [id number] RECD : 01/04/24 STATUS: YONG STACY NUM: [id number] FAVIOLA: 01/04/24 [facility] DR: George Nguyen MD ENTERED: 01/04/2414 [...] Daja Ann Age/Sex: 73/F : 1950 Unit#: [id number] Attend Dr: George Nguyen MD Re01/04/24 Status : [facility] Location: [facility] Disch: SPEC : [id number] RECD : 01/04/24 STATUS: YONG STACY NUM: [id number] FAVIOLA: 01/04/248 [facility] DR: George Nguyen MD ENTERED: 01/04/2414 43 SP TYPE: Surgical OTHR DR: Joseph Valencia MD ORDERED: ELSA Stain/9, Gross Micro L4/3 Gross Description (Continued) CEDS Copies To: Joseph Valencia MD [facility] [address] [place] [address] Drive [address] [place], [place] [id number] George Nguyen MD [facility] [address] [place] [id number] Signed (si gnature on file) Kim Pearson [...] Problem Status W/U Status Risk Notes Problem 76870523 Epigastric abdominal pain (R10.13) Active confirmed Problem Screening for malignant neoplasm of colon (316064892) Encounter for screening for malignant neoplasm of colon (Z12.11) Active confirmed Problem History of polyp of colon (situation) (338816528) Personal history of colonic polyps (Z86.010) Active confirmed Problem Diverticular disease of colon (613811286) Diverticulosis of large intestine without perforation or abscess without bleeding (K57.30) Active confirmed Problem 650359921 Gastroesophageal reflux disease, esophagitis presence not specified (K21.9) Active confirmed Problem 33463306 Rectal bleed (K62.5) Active confirmed Problem Benign neoplasm of colon (10585938) 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 Problem Ulcerative colitis (85906602) Ulcerative colitis (K51.90) Active confirmed Problem Proctitis (3097242) 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) Active confirmed Problem Diverticulosis of colon (718297239) Diverticulosis of colon (K57.30) Active confirmed Vital Signs Temperature 98.6 degrees Fahrenheit 06/11/2024 Blood pressure diastolic 00 mm Hg 06/11/2024 Height 65 in 06/11/2024 Blood pressure systolic 000 mm Hg 06/11/2024 Weight 150 lbs 06/11/2024 BMI 24.96 kg/m2 06/11/2024 Encounters Encounter Location Date Provider Diagnosis [facility] Out[facility] [address] [place] [address] [phone] 01/04/2024 George Nguyen Colon cancer screeni Z12.11 ; Colon polyps K63.5 ; Ulcerative colitis K51.90 and Diverticulosis of large intestine without perforation or abscess without bleeding K57.30 [facility] [address] [place] [address] 09/26/2023 George Nguyen Rectal bleed K62.5 ; Gastroesophageal reflux disease, esophagitis presence not specified K21.9 ; Tubulovillous adenoma of colon K63.5 ; Proctitis K62.89 and Encounter for screening for malignant neoplasm of colon Z12.11 [facility] [address] [place] [address] 06/11/2024 George Nguyen Ulcerative colitis K51.90 ; Encounter for screening for malignant neoplasm of colon Z12.11 and Personal history of colonic polyps Z86.010 [facility] [address] [place] [phone] 10/23/2023 George Nguyen [facility] [address] [place] [phone] 12/31/2023 George Nguyen [facility] [address] [place] [phone] 01/03/2024 George Nguyen [facility] [address] [place] [phone] 01/05/2024 George Nguyen [facility] [address] [place] [phone] 02/02/2024 George Nguyen [facility] [address] [place] [phone] 02/06/2024 George Nguyen [facility] [address] [place] [phone] 02/11/2024 George Nguyen [facility] [address] [place] [phone] 03/05/2024 George Nguyen [facility] [address] [place] [address] 04/02/2024 George Nguyen [facility] [address] [place] [phone] 06/17/2024 George Nguyen Assessments Encounter Date Diagnosis [...] Provider Name:George Nguyen , 10/15/2024 04:20:00 PM, [address] [place] [address], [address], [place], [address], Insurance Providers Payer Name Payer Address Payer Phone Subscriber Number Group Number Insured Name Patient Relationship to Insured Coverage Start Date Coverage End Date [facility] [address] [place] [address] [phone] [id number] DAJA ANN Self - patient is the insured Medical (General) History Medical History History ICD Code Lung cancer - 1998--Removed upper right lobe Breast cancer-1998 Left--surgery and XRT ; and 03/2019 Right--surgery and XRT GERD Overactive parathyroid Anxiety Arthritis Colonoscopy in 2004 was neg. except for a hyperplastic polyp Denies CA,DM,CVA,renal disease COPD Colonscopy in 01/2020 with a [...] Aponte 01/2023 Parathyroid surgery scheduiled for at [facility]--Dr. Arroyo
--- OUTSIDE RECORDS SUMMARY | 2024-09-16 17:00 | XMS_ITS | Patient Health Record ---
Author Organization [facility] Address [address] [place] [address] Care Team Providers Care Repair Department Supervisor Name Role Phone Joseph Valencia MD Primary Care Provider UnavailMerle Mejia Unavailable [phone] Allergies Allergen (clinical drug ingredient) Drug/Non Drug [...] Problem Status W/U Status Risk Notes Problem 5735269 Psoriasis (L40.9) Active confirmed Problem 70367166 Varicose veins of both legs with edema (I83.893) Active confirmed Encounters Encounter Location Date Provider Diagnosis [facility] [place] [address] [place] [address] 11/01/2023 Merle Parker Plan Of Treatment Pending [...] Date [employer] [place] Medicare Advantage [facility] [address] [place] [address] [phone] [id number] Eliza Shields Self - patient is the insured Medical (General) History Medical History History ICD Code Anxiety Back,Hip,and Knee pain Cancer Hiatal hernia Sciatica Psoriasis/eczema Stomach ulcer hyperparathyroidism Surgical History Surgery Date(Month/Year) lung lobectomy right and left 1998
== END ==
LOC: HO.HMCHD 16:01
PROVIDERS: PCP Internal Medicine; Visit Provider Physician Assistant
DX: J44.9 Chronic obstructive pulmonary disease, unspecified (principal); I10 Essential (primary) hypertension; C50.919 Malignant neoplasm of unspecified site of unspecified female breast; M81.0 Age-related osteoporosis without current pathological fracture; M17.0 Bilateral primary osteoarthritis of knee; M40.209 Unspecified kyphosis, site unspecified

== ENCOUNTER 2024-09-29 15:26 | Outpatient (AMB) | payer MEDICARE, SELFPAY ==
--- NOTE | 2024-09-29 15:26 | MHC.OFFVIS ---
Intake Visit Reasons: Followup Imaging(set) Intake Note: Pt presents to the office as a telehealth visit for follow up imaging/nephrolithiasis. Urology meds: None Blood thinners: Aspirin Allergies codeine Allergy (Severe, Verified 09/29/24 16:52) nausea eplerenone Allergy (Severe, Verified 09/29/24 16:52) Gastrointestinal Upset Penicillins Allergy (Severe, Verified 09/29/24 16:52) Anaphylaxis sulfamethoxazole [From BACTRIM] Allergy (Severe, Verified 09/29/24 16:52) HIVES/RASH/SWELLING tamsulosin Adverse Reaction (Severe, Verified 09/29/24 16:52) cardiac Medication List - Last Reconciled 09/29/24 by BERNY Stanford-SANJUANA acetaminophen 1,000 mg PO Q6H PRN albuterol sulfate 90 mcg/actuation (Ventolin HFA) 2 puffs inhalation Q4-6H PRN 30 days albuterol sulfate 2.5 mg (6 mL) inhalation Q4-6H PRN 30 days alprazolam 0.5 mg PO BID PRN aspirin (Adult Aspirin Regimen) 81 mg PO DAILY carvedilol 6.25 mg PO BID clobetasol 0.05% 1 appl topical DAILY diclofenac sodium 1% 4 grams topical QID diltiazem HCl CD 180 mg PO DAILY ferrous sulfate 28 mg PO DAILY fluticasone propion-salmeterol 250-50 mcg/dose (Wixela Inhub) 1 ea inhalation BID 30 days furosemide (Lasix) 20 mg orally 2 tabs in the am and 1 tab in the afternoon; 30 days inhalational spacing device (BreatheRite MDI Spacer) As directed letrozole 2.5 mg PO DAILY mesalamine 4.8 grams PO DAILY multivitamin 1 tab PO DAILY omeprazole 20 mg PO BID potassium chloride ER 40 mEq PO BID sertraline mg PO DAILY tiotropium bromide (Spiriva with HandiHaler) 1 cap inhalation DAILY 30 days HPI Comments Details: Eliza is a very pleasant 74-year-old female patient of Dr. Vann. She has a past medical history of breast cancer, hypertension, hypercholesteremia, hiatal hernia, nephrolithiasis, arthritis, anxiety, hypothyroidism, lung cancer, GERD, asthma, and pulmonary hypertension. She is being followed up on today via telehealth for her history of nephrolithiasis. Recent CT results were reviewed with the patient today. 09/05 bilateral nephrolithiasis. It dilated right kidney pelvis likely secondary to UPJ stricture or narrowing. No obstructive calculi seen at the UPJ. There are bilateral 6 mm nonobstructing renal calculi. No hydronephrosis noted bilaterally. She does report intermittent episodes of bilateral flank pain however feels these episodes are infrequent. Patient with a longstanding history of nephrolithiasis requiring surgical intervention. Patient underwent left-sided ureteroscopy with Dr. Hammer 10/04 for a 6 mm left UVJ stone followed by in office cystoscopy with left-sided ureteral stent removal shortly after. She has a previous history of ESWL in 2012. We discussed at length potential causes of nephrolithiasis. We discussed obtaining nuclear renal scan for further assessment evaluation. She denies incontinence, nocturia, hematuria, dysuria, foul smelling urine, changes to urinary stream, flank pain, fever, and or chills. She is happy with her current voiding parameters. BUN: 02/03 12, 08/04 12, 09/04 12, 10/04 17, 01/04 15, 09/05 22 Creatinine: 02/03 0.70, 08/04 0.70, 09/04 0.64, 10/04 0.79, 01/04 0.74, 08/04 0.63, 09/05 0.66 PFSH Medical History Breast cancer Essential hypertension Hypercalcemia Slow to wake up after anesthesia Hx of radiation therapy Hiatal hernia PONV (postoperative nausea and vomiting) Anemia History of kidney stones Proctitis Arthritis Anxiety Hyperparathyroidism Lung cancer GERD (gastroesophageal reflux disease) Asthma-COPD overlap syndrome Pulmonary hypertension Surgical History History of parathyroidectomy H/O cataract extraction Hx of cardiac catheterization Hx of varicose vein ligation and stripping History of lumpectomy of both breasts History of right inguinal hernia repair History of lithotripsy History of lobectomy of lung Hx of colonoscopy (~01/04/24) History of esophagogastroduodenoscopy Family History Mother Breast cancer Bone cancer Heart attack Father Abdominal aneurysm Enlarged heart Brother Lung cancer Brain cancer Social History Household Members: Family Household Members Other:: Sister Housing: House Are you a primary vocational childcare teacher to a significant other at home: Yes (Sister) Do you presently have visiting nurse or other home services: No Alcohol intake: former Patient Tobacco Use Status: Former Tobacco user Tobacco use type: Cigarette Years Smoked: 31 service: No Current occupational status: retired Cognitive needs: Yes (cane) Hearing needs: No Vision needs: Yes ([place]) Review of Systems Const Reports no additional complaints Eyes Reports no additional complaints ENT Reports no additional complaints Card Reports as per HPI Resp Reports as per HPI GI Reports as per HPI Reports as per HPI Musc Reports as per HPI Skin/Breast Reports as per HPI Neuro Reports no additional complaints Psych Reports no additional complaints Bo/Lymph Reports no additional complaints Aller/Immun Reports no additional complaints Physical Exam Const General: cooperative, healthy appearing, comfortable, no acute distress, well developed, alert, awake and Physically active Orientation/consciousness: patient oriented x3 Resp Effort & Inspection: normal respiratory effort and able to speak in complete sentences Neuro General: patient oriented x3 Psych Speech and movement: Clear speech present Attitude: cooperative Thought process: Normal thought process present Thought content: Normal thought content present Insight: Fair insight present (Psych) Judgement: Fair judgement present (Psych) Telehealth Telehealth Telehealth Platform: [employer] Location of provider rendering services: practice address Location of patient: address on file Patient Identification confirmed using: Name, : Yes Telehealth method: video Patient verbally consented to treatment: Yes Patient verbally consented to billing insurance company: Yes Patient informed of any privacy concerns related to visit: Yes Minutes spent on Phone/Video with Pt.: 20 Results Reviewed Results Reviewed: Date of Service: 08/19/24 Procedure(s): CT kidney stone FINDINGS: LUNG BASES: Heart size is normal with thick mitral valve calcification. No pericardial effusion seen. There is a right anterior segment lower lobe pleural thickening and's scarring LIVER, GALLBLADDER, AND BILIARY TREE: The liver is normal in size, shape, and attenuation. No focal hepatic lesion or biliary ductal dilatation is present. The gallbladder is unremarkable with no evidence of radiopaque gallstones, gallbladder wall thickening, or obvious pericholecystic inflammatory changes. PANCREAS: Unremarkable. SPLEEN: Unremarkable. ADRENAL GLANDS: Unremarkable. KIDNEYS AND URETERS: There is bilateral nephrolithiasis with dilated right kidney pelvis secondary to UPJ obstruction. No obstructive stone is seen at the UPJ. There is 6 mm calculi seen in right kidney lower pole calyx, upper pole calyx and dependent segment of dilated right kidney pelvis. 6 mm radiopaque calculi seen in the mid and lower pole calyx left kidney BLADDER: The bladder is contracted. GASTROINTESTINAL TRACT: There is moderate scattered stool and diverticuli seen throughout the colon without distention. The small bowel loops are normal caliber. Appendix is not visualized. The stomach is nondistended. ABDOMINAL WALL: No significant hernia is appreciated. LYMPH NODES: Normal. VASCULAR: Mild discogenic calcification of abdominal aorta is noted. No aneurysmal dilatation. PELVIC VISCERA: The uterus is anteverted and unremarkable. No adnexal mass or free fluid seen. Few phleboliths are noted. OSSEOUS STRUCTURES: There are degenerative changes L2-3, L1-with disc levels with mild ventral spondylosis. There is mild levoscoliosis. Bilateral L5 to exclude, L4-5 facet joint arthropathy is noted. IMPRESSION: Bilateral nephrolithiasis. A dilated right kidney pelvis likely secondary to UPJ stricture or narrowing. No obstructive calculi seen at the UPJ. There are 6 mm radiopaque calculi in right kidney lower pole, midpole and a dilated right kidney pelvis. Nonobstructive left renal calculi without hydronephrosis. Mild constipation. Fleischner guidelines were followed. Assessment & Plan Assessment & Plan (1) Ureteropelvic junction (UPJ) obstruction: Code(s): N13.5 - Crossing vessel and stricture of ureter without hydronephrosis Category: Medical (2) Nephrolithiasis: Code(s): N20.0 - Calculus of kidney Category: Medical Plan Recent CT results were reviewed with the patient today; as noted above. All questions were answered. We discussed further workup to include nuclear renal scan for further assessment evaluation We also discussed surveillance monitoring risks and benefits of these interventions were discussed in detail. She currently denies any bothersome urinary issues or concerns. She reports be happy with current voiding parameters. We discussed the importance of adequate hydration relation to nephrolithiasis as well as overall health and well-being We discussed further intervention of nephrolithiasis to include lithotripsy versus ureteroscopy verses surveillance monitoring; will continue with surveillance monitoring at this time Will obtain nuclear renal scan BUN and creatinine ordered Follow-up in 1-3 months with imaging to be completed prior; or sooner with any issues, concerns, and or questions Orders: Orders NM renal flow w pharm int Today N13.5 - Crossing vessel and stricture of ureter without hydronephrosis Blood Urea Nitrogen Today R39.15 - Urgency of urination Creatinine Today R39.15 - Urgency of urination Patient Instructions: The patient had an opportunity to ask questions regarding the treatment plan. All questions were answered. Physical exam, labs, and imaging were discussed and reviewed in detail. As well as risks, benefits, and discussion of treatment choices. No major barriers to understanding were identified. The patient expressed understanding and agreement with the above treatment plan. The patient was made aware they should contact our office by phone for worsening of their current condition, the appearance of new symptoms, or with any questions or concerns. Compliance is encouraged with any medications and follow up testing that is ordered. It is a privilege to be allowed the opportunity to participate in? your urological care.? Again, if you have any questions or concerns If you have any questions or concerns please do not hesitate to contact me. The office is [phone]. This note is constructed using voice recognition software. While every effort has been made to ensure accuracy discotheque dancer errors may have been included. Yours sincerely, LIZBETH Stanford Coding Level of Care Code Tele Est Pt Level 4 (62246) Diagnoses Ureteropelvic junction (UPJ) obstruction N13.5 Nephrolithiasis N20.0
--- OUTSIDE RECORDS SUMMARY | 2024-09-29 15:28 | XMS_ITS | Patient Health Record ---
Author Organization George Dias III, MD Address [address] [place] [address] Care Team Providers Care Supervising Broker Name Role Phone Joseph Valencia MD Primary Care Provider George Ren Unavailable [phone] Allergies Allergen (clinical drug ingredient) Drug/Non Drug [...] Problem Status W/U Status Risk Notes Problem 0152482 Former smoker (Z87.891) Active confirmed She has been abstinent since 1998. She has a plan to prevent relapse in times of stress and illness. Problem Fibromyalgia (851346929) Fibromyalgia (M79.7) Active confirmed Her symptoms ar e stable and unchanged. Problem 929815277 Overweight (E66.3) Active confirmed This problem duron s resolved and will be removed from her problem list Problem 69743459 Allergy to sulfa drugs (Z88.2) Active confirmed Problem 076328924 GERD without esophagitis (K21.9) Active confirmed Her reflux symptoms are well controlled with [id number]-uyqbpyy medication. Problem 91117186 Essential hypertension (I10) Active confirmed Her blood pressure is 134/71. She is stable and no change in her regimen was needed. I recommended continued sodium restriction. Problem 20703196 Penicillin allergy (Z88.0) Active confirmed Problem 329385277984552 Hematochezia (K92.1) Active confirmed #4 days. She isn't visible streaks of red blood in her stool. She will be referred to her gastroenterologi st for colonoscopy. 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 I recurrent cancer in her breast is recently been detected.Her examination today was unremarkable Problem 0426231530602777 Ductal carcinoma in situ (DCIS) of right breast (D05.11) Active confirmed Her lumpectomy scar is well-healed and there are no new findings. Problem 61328743859978866 Adenocarcinoma of right lung (C34.91) Active confirmed There was no sign of her recurrent cervical new primary today. Problem 638873947 Renal cyst (N28.1) Active confirmed Diagnosis will be followed. Problem 852035327 Invasive ductal carcinoma of left breast (C50.912) Active confirmed The Oncotype DX has returned at 19, a favorable level. She has begun on anastrozole. She will have a radiation therapy consultation. Because of diffuse aches and pains. We have temporarily stopped anastrozole. Problem Psoriatic arthritis (547165753) Psoriatic arthritis (L40.50) Active confirmed She has [...] Provider Diagnosis George Dias III, MD [address] [place] [address] [place] [address] 03/07/2024 George Dias Ductal carcinoma in situ [...] Her reflux symptoms are well controlled with vyyd-okw-cqgivem medication. 03/07/2024 Former smoker (ICD-10 - Z87.891) [...] Insured Coverage Start Date Coverage End Date [facility] [address] [facility] [address] [place] [phone] [id number] DAJA POWELL Self - patient is the insured Medical (General) History Medical History History ICD Code stage I adenocarcinoma right upper lobe 1998 1998 DCIS and LCIS left breast, lumpecto my, radiation, raloxifene, age 48 essential hypertension GERD ureterolithiasis family history of breast cancer, materna l cousin and mother 1998, hyperplastic rectal polyp abnormal stress test 2016 2019: 4.2 x 2.5 x 2.6 complex cyst media l right kidney former smoker since 1998 [id number] son [id number] invasive ductal carcinoma left breast April [id number] DCIS right breast, surgery and RT Breast Cancer in 2021, High Blood Pressu re, Ulcerated Colitis Surgical History Surgery Date(Month/Year) Breast cancer surgery in 2021 2021 Lumpectomy and sentinel node biopsy left breast, [facility], Dr. Mioxn 04/2021 multiple negative endometrial biopsies Right breast lumpectomy with 2 needle lo calization (DP) 03/2019 36 weeks radiation . Left breast 11/1998 1 major vein removed- Dr. Lo 2 major veins removed right leg Lumpectomy and sentinel nodes left breas t 1998 right upper lobectomy, stage I adenocarc inoma of, Dr. Scherer 1998
--- OUTSIDE RECORDS SUMMARY | 2024-09-29 15:28 | XMS_ITS ---
Author Organization George Dias III, MD Address [address] [place] [address] Care Team Providers Care Applied Psychology Chair Name Role Phone Joseph Valencia MD Primary Care Provider George Ren Unavailable [phone] Allergies Allergen (clinical drug ingredient) Drug/Non Drug [...] Date Provider Diagnosis George Dias III, MD [address] [place] [address] [place] [address] 03/07/2024 George Dias Ductal carcinoma in situ [...] Her reflux symptoms are well controlled with evzt-pwv-edzzayj medication. 03/07/2024 Former smoker (ICD-10 - Z87.891) [...] * DAJA PEACE PDOB: (74 yo F)Acc No.[id number]:03/07/2024 Progress Notes Patient:?MARLIN PEACE P Provider:?George Dias MD :1950???Age:74 Y???Sex:Female D ate:03/07/2024 Address:[address] [place], [place] [address] Pcp:Joseph Valencia MD Subjective: * Chief Complaints: [...] trying to get in touch with her bow tacker, Dr. Zee, to discuss her heart condition [...] Lumpectomy and sentinel node biopsy left breast, [facility], Dr. Mixon 1Breast cancer surgery [...] :Her reflux symptoms are well controlled with mrek-gdb-bshhzdp medication.???5.?Former smoker - Z87.891???Notes :She has been [...] Provider:?George Dias MD Date:?02/12 Generated for Pina bennett/Rozina/Michellitting on:?09/29/2024 03:28 PM EDT History and Physical Notes * [...]
--- OUTSIDE RECORDS SUMMARY | 2024-09-29 15:28 | XMS_ITS | Clinical Summary ---
Author Organization [facility] Address [address] [facility] [address] [place] [address] Phone Care Team Providers Care Consultant Nurse Name Role Phone Joseph Valencia MD Primary Care Provider [phone] Allergies Active Allergy Reactions Criticality Noted Date [...] DAY 180 capsule 05/03/20 24 025 Discontinued Active Problems Problem Noted Date Diagnosed Date Essential (primary) hypertension 10/29/2023 Personal history of kidney stones 10/29/2023 Other secondary hypertension 08/02/2023 Encounters Date Type Department Care Team Description 09/14/2024 Refill [facility] [address] [place] [address] Carlos Manuel Wagoner MD 08/19/2024 Refill [facility] [address] [address] Kiran Dickerson MD 08/19/2024 Refill [facility] [address] [address] Rita Milner 08/18/2024 Refill [facility] [place] [address] [address] Kiran Dickerson MD 08/18/2024 Refill [facility] [address] [address] Kiran Dickerson MD 08/17/2024 Refill [facility] [address] [address] Carlos Manuel Wagoner MD 08/15/2024 Refill [facility] [address] [address] Carlos Manuel Wagoner MD 08/11/2024 3:15 PM EDT Office Visit [facility] [address] [place] [address] Carlos Manuel Wagoner MD Personal history of kidney stones (Primary Dx) 07/29/2024 Refill [facility] [address] [address] Carlos Manuel Wagoner MD 07/27/2024 Refill [facility] [address] [address] Carlos Manuel Wagoner MD from Last 3 Months Immunizations Immunization Administration [...] Office Visit [facility] [address] [place] [address] Carlos Manuel Wagoner MD [address] [address] 08/10/2025 3:15 PM EDT Office Visit [facility] [address] [place] [address] Carlos Manuel Wagoner MD [address] [address] Health Maintenance Due Date Last [...] patient's age to complete this topic Insurance [facility]3] [facility]3] Care Teams Consultant Nurse Relationship Specialty Start Date End Date oJseph Valencia MD [address] [place] [address] [address] [place], [place] PCP - General Internal Medicine 08/02/23
--- OUTSIDE RECORDS SUMMARY | 2024-09-29 15:28 | XMS_ITS ---
Author Organization George Dias III, MD Address [address] [place] [address] Care Team Providers Care Onboarding Specialist Name Role Phone Joseph Valencia MD Primary Care Provider George Ren Unavailable [phone] Allergies Allergen (clinical drug ingredient) Drug/Non Drug [...] Date Provider Diagnosis George Dias III, MD [address] [place] [address] [place] [address] 09/09/2024 George Dias Ductal carcinoma in situ [...] * DAJA PEACE PDOB: (74 yo F)Acc No.[id number]:09/09/2024 Progress Notes Patient:?MARLIN PEACE Provider:?George Dias MD :1950???Age:74 Y???Sex:Female D ate:09/09/2024 Address:[address] [place] [address], [place] Pcp:Joseph Valencia MD Subjective: * Chief Complaints: [...] medial right kidney, Former smoker since 1998, [id number] son, [id number] invasive ductal carcinoma left breast April 20212018 [...] biopsy left breast, [facility], Dr. Mixon 04/2021, Breast cancer surgery in 2021 2021. * Hospitalization/Major Diagno stic Procedure:?Denies Past Hospitalization. * Family History:?Father: dece ased 68 yrs, COPD, hypertension, CVD, diagnosed with CVD, HTN.?Mother: , diagnosed with CVD, Cancer.?Siblings: unknown.?Maternal Grand [...] Dias MD Date:?08/13 Generated for Pina bennett/Rozina/Annabel on:?09/29/2024 03:28 PM EDT History and Physical [...]
--- OUTSIDE RECORDS SUMMARY | 2024-09-29 15:28 | XMS_ITS ---
Author Organization [facility] Address [address] [place] [address] Care Team Providers Care Component Engineer Name Role Phone Joseph Valencia MD Primary Care Provider Merle Lopez [phone] Encounters Encounter Location Date Provider Diagnosis [address] [address] 11/06/2023 Merle Parker Plan Of Treatment No Information Progress Notes * Eliza RINCON PDOB: (74 yo F)Acc No.[id number]:11/06/2023 Progress Notes Patient:?Eliza RINCON Provider:?Merle Parker DPM :1950???Age:73 Y???Sex:Female D ate:11/06/2023 Address:[address] [place], [place] [address] Pcp:Joseph Valencia MD Subjective: * Chief Complaints: [...] Parker DPM Date:? Generated for Pina bennett/Rozina/eTransmitting on:?09/29/2024 03:28 PM EDT
--- OUTSIDE RECORDS SUMMARY | 2024-09-29 15:29 | XMS_ITS ---
Author Organization [facility] Address [address] [place] [address] Care Team Providers Care Editor News Name Role Phone Joseph Valencia MD Primary Care Provider UnavailGeorge Ferguson Unavailable [phone] George Dias MD Unavailable Unavailable Allergies Allergen [...] Problem History of polyp of colon (situation) (490068016) Personal history of colonic polyps (Z86.010) Active confirmed Vital Signs Temperature 98.6 degrees Fahrenheit 06/11/19 25 Blood pressure systolic 000 mm Hg 06/11/19 25 Blood pressure diastolic 00 mm Hg 025 Height 65 in 06/11/2024 Weight 150 lbs 06/11/2024 BMI 24.96 kg/m2 06/11/2024 Encounters Encounter Location Date Provider Diagnosis [facility] [address] [place] [address] 06/11/2024 George Nguyen Ulcerative colitis K51.90 ; [...] [address], [address], [place], [address], Progress Notes * DAJA YOUNG PDOB: (74 yo F)Acc No.[id number]:06/11/2024 Progress Notes Patient:?MARLIN YOUNG Provider:?George Nguyen MD :1950???Age:74 Y???Sex:Female D ate:06/11/2024 Address:[address] [place], [place] [address] Pcp:Joseph Valencia MD Subjective: * Chief Complaints: [...] to be the case based on her title specialist's and my opinion. She did not use [...] Aponte 3Parathyroid surgery scheduiled for 11/08/23 at [facility]--Dr. Arroyo * Hospitalization/Major Diagno stic Procedure:?No [...] sig alcohol. * Medications:?TakingTylenol E xtra Strength Powerlinx Turmeric ALPRAZolam 0.5 MG Tablet as directed [...] with the patientTaking Tylenol Extra Strength Taking Powerlinx Taking Turmeric Taking ALPRAZolam 0.5 MG Tablet [...] SCREEN DOC REV, Modifiers: 8P 1036F TOBACCO NON-TXAYT0122 BP SCR NOT PRFRM REC REASON NOS [...] MD Date:? 025 Generated for Pina bennett/Rozina/Michellitting on:?09/29/2024 03:28 PM [...] to be the case based on her title specialist's and my opinion. She did not use [...]
--- OUTSIDE RECORDS SUMMARY | 2024-09-29 15:29 | XMS_ITS ---
Author Organization [facility] Address [address] [place] [address] Care Team Providers Care Vice President Global Advertising Sales Name Role Phone Joseph Valencia MD Primary Care Provider UnavailGeorge Ferguson [phone] George Dias MD REASON FOR VISIT Jhonny HAMMONDS/ NEED CLINICALS please .. what to send? Encounters Encounter Location Date Provider Diagnosis [facility] [address] [place] [address] 06/17/2024 George Nguyen Plan Of Treatment Next Appt Details Provider Name:George Nguyen , 10/15/2024 04:20:00 PM, [address] [facility] [address] [facility], [address], [place], [address], Progress Notes * DAJA YOUNG PDOB: (74 yo F)Acc No.[id number]:06/17/2024 Patient:?MARLIN YOUNG :1950???Age:74 Y???Sex:Female Address:[address] [place], [place] [address] [address] * true * Date:? Generated for Printi ng/Faxing/eTransmitting on:?09/29/2024 03:28 PM EDT
--- OUTSIDE RECORDS SUMMARY | 2024-09-29 15:29 | XMS_ITS ---
Author Organization [facility] Address [address] [place] [address] Care Team Providers Care Microcomputer Support Specialist Name Role Phone Joseph Valencia MD Primary Care Provider UnavailGeorge Ferguson Unavailable [phone] George Dias MD Unavailable REASON FOR VISIT mesalamine Encounters Encounter Location Date Provider Diagnosis [facility] [address] [place] [address] 04/02/2024 George Nguyen Plan Of Treatment Next Appt Details Provider Name:George Nguyen , 10/15/2024 04:20:00 PM, [address], [address], [place], [address], Progress Notes * DAJA YOUNG PDOB: (74 yo F)Acc No.[id number]:04/02/2024 Patient:?MARLIN YOUNG :1950???Age:74 Y???Sex:Female Address:[address] [place] [address] * true * Date:? Generated for Pina bennett/Rozina/eTransmitting on:?09/29/2024 03:29 PM EDT
--- OUTSIDE RECORDS SUMMARY | 2024-09-29 15:29 | XMS_ITS ---
Author Organization [facility] Address [address] [place] [address] Care Team Providers Care Warehouse Delivery Driver Name Role Phone Joseph Valencia MD Primary Care Provider Merle Lopez [phone] REASON FOR VISIT cx ON 11/05 Encounters Encounter Location Date Provider Diagnosis [address] [address] 11/01/2023 Merle Parker Plan Of Treatment No Information Progress Notes * Eliza RINCON PDOB: (73 yo F)Acc No.[id number]:11/01/2023 Patient:?Eliza Rincon :1950???Age:73 Y???Sex:Female Address:[address] [place] [address], [address] * true * Date:? Generated for Printi sabrina/Rozina/eTransmitting on:?09/29/2024 03:28 PM EDT
--- OUTSIDE RECORDS SUMMARY | 2024-09-29 15:29 | XMS_ITS | Patient Health Record ---
Author Organization [facility] Address [address] [place] [address] Care Team Providers Care Dump Worker Name Role Phone Joseph Valencia MD Primary Care Provider George Reese Unavailable [phone] George Dias MD Unavailable Unavailable Allergies Allergen (clinical drug ingredient) Drug/Non Drug Allergy documented on EMR Reaction Allergy Type Onset Date Status codeine Codeine Unknown Drug Allergy Active Substance with sulfonamide structure and antibacterial mechanism of action (substance) Sulfa (uncoded) Unknown Allergy Active Penicillin (uncoded) Unknown Allergy Active Results Component Value Reference Range Notes Pathology Reviewed date:01/17/2024 02:55:38 PM Interpretation: Performing Lab:[facility], [address] [place] [address] Notes/Report: Name: Daja Ann Age/Sex: 73/F : 1950 Unit#: [id number] Attend Dr: George Nguyen MD Re01/04/24 Status : [facility] Location: [facility] Disch: SPEC : [id number] RECD : 01/04/24 STATUS: YONG STACY NUM: [id number] FAVIOLA: 01/04/[address] [facility] [address]: George Nguyen MD ENTERED: [...] Daja Ann Age/Sex: 73/F : 1950 Unit#: [id number] Attend Dr: George Nguyen MD Re01/04/24 Status : [facility] Location: [facility] Disch: SPEC : [id number] RECD : 01/04/24 STATUS: YONG STACY NUM: [id number] FAVIOLA: 01/04/[address] [facility] [address]: George Nguyen MD ENTERED: 01/04/2414 43 SP TYPE: Surgical OTHR DR: Joseph Valencia MD ORDERED: ELSA Stain/9, Gross Micro L4/3 Gross Description (Continued) CEDS Copies To: Joseph Valencia MD [facility] [address] [place] [address] Drive [address] [place], [place] [id number] George Nguyen MD [facility] [address] [place] [address] Signed (si gnature on file) Kmi Pearson MD 01/07/24 1434 END OF REPORT [...] Problem Status W/U Status Risk Notes Problem 16836886 Epigastric abdominal pain (R10.13) Active confirmed Problem Screening for malignant neoplasm of colon (580785546) Encounter for screening for malignant neoplasm of colon (Z12.11) Active confirmed Problem History of polyp of colon (situation) (182305469) Personal history of colonic polyps (Z86.010) Active confirmed Problem Diverticular disease of colon (173337104) Diverticulosis of large intestine without perforation or abscess without bleeding (K57.30) Active confirmed Problem 061863533 Gastroesophageal reflux disease, esophagitis presence not specified (K21.9) Active confirmed Problem 19501789 Rectal bleed (K62.5) Active confirmed Problem Benign neoplasm of colon (99815670) 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 Problem Ulcerative colitis (53396160) Ulcerative colitis (K51.90) Active confirmed Problem Proctitis (5518649) 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) Active confirmed Problem Diverticulosis of colon (474826155) Diverticulosis of colon (K57.30) Active confirmed Vital Signs Temperature 98.6 degrees Fahrenheit 06/11/2024 Blood pressure diastolic 00 mm Hg 06/11/2024 Height 65 in 06/11/2024 Blood pressure systolic 000 mm Hg 06/11/2024 Weight 150 lbs 06/11/2024 BMI 24.96 kg/m2 06/11/2024 Encounters Encounter Location Date Provider Diagnosis [facility] Outpatient [address] [place] [phone] 01/04/2024 George Nguyen Colon cancer screeni Z12.11 ; Colon polyps K63.5 ; Ulcerative colitis K51.90 and Diverticulosis of large intestine without perforation or abscess without bleeding K57.30 [facility] [address] [place] [address] 06/11/2024 George Nguyen Ulcerative colitis K51.90 ; Encounter for screening for malignant neoplasm of colon Z12.11 and Personal history of colonic polyps Z86.010 [facility] [address] [place] [address] 10/23/2023 George Nguyen [facility] [address] [place] [address] 12/31/2023 George Nguyen [facility] [address] [place] [address] 01/03/2024 George Nguyen [facility] [address] [place] [address] 01/05/2024 George Nguyen [facility] [address] [place] [address] 02/02/2024 George Nguyen [facility] [address] [place] [address] 02/06/2024 George Nguyen [facility] [address] [place] [address] 02/11/2024 George Nguyen [facility] [address] [place] [address] 03/05/2024 George Nguyen [facility] [address] [place] [address] 04/02/2024 George Nguyen [facility] [address] [place] [address] 06/17/2024 George Nguyen Assessments Encounter Date Diagnosis (ICD Code) Assessment Notes Treatment Notes Treatment Clinical Notes Section Notes 01/04/2024 Colon cancer screening (ICD-10 - Z12.11) 01/04/2024 Colon polyps (ICD-10 - K63.5) 06/11/2024 Encounter for screening for malignant neoplasm [...] progress. 01/04/2024 Ulcerative colitis (ICD-10 - K51.90) 06/11/2024 Personal history of colonic polyps (ICD-10 [...] bleeding (ICD-10 - K57.30) Plan Of Treatment Pending Test Test Name Order Date US ABD 02/10/2020 Future Test Test Name Order Date UPPER GI ENDOSCOPY 01/22/2020 COLONOSCOPY 01/22/2020 COLONOSCOPY 09/29/2020 COLONOSCOPY 09/26/2023 Next Appt Details Provider Name:George Nguyen , 10/15/2024 04:20:00 PM, [address] [facility], [address], [place], [address], Insurance Providers Payer Name Payer Address Payer Phone Subscriber Number Group Number Insured Name Patient Relationship to Insured Coverage Start Date Coverage End Date [facility] [address] [place] [phone] [id number] DAJA ANN Self - patient is the insured Medical (General) History Medical History History ICD Code Lung cancer - 1998--Removed upper right lobe Breast cancer-1998 Left--surgery and XRT ; and 03/2019 Right--surgery and XRT GERD Overactive parathyroid Anxiety Arthritis Colonoscopy in 2004 was neg. except for a hyperplastic polyp Denies IA,DM,CVA,renal disease COPD Colonscopy in 01/2020 with a [...] Aponte 01/2023 Parathyroid surgery scheduiled for at [facility]--Dr. Arroyo
--- OUTSIDE RECORDS SUMMARY | 2024-09-29 15:29 | XMS_ITS | Patient Health Record ---
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) Active confirmed Encounters Encounter Location Date Provider Diagnosis [facility] [place] [address] [place] [address] 11/01/2023 Merle Parker Plan Of Treatment Pending [...] Date [employer] Medicare Advantage [facility] [address] [place] [address] [id number] Eliza Shields Self - patient is the insured Medical (General) History Medical History History ICD Code Anxiety Back,Hip,and Knee pain Cancer Hiatal hernia Sciatica Psoriasis/eczema Stomach ulcer hyperparathyroidism Surgical History Surgery Date(Month/Year) lung lobectomy right and left 1998
--- OUTSIDE RECORDS SUMMARY | 2024-09-29 15:29 | XMS_ITS | Continuity of Care Document ---
Author Organization [facility] Address [address] [place] [address] Phone Care Team Providers Care Engine Builder Name Role Phone Yasmany KEY, GARDENIA, George [...] Telemedicine [place] & [place] [facility], [address] [place] [address] [address], [place], [id number], [place] tel:[phone] R - [place] Varicose veins of bilateral lower extremities with other complicationsL ocalized edemaCramp and spasmPruritus, unspecifiedEss ential (primary) hypertension 4 Yasmany KEY, GARDENIA, CROW Vazquez. [address] [facility], [address], [facility], [id number] , [place]. tel:[phone] Offic Cons New/estab Mod-hi 60- [place] & [place] [facility], [address] [place] [address] [address], [place], [id number], tel:[phone] CVR - [place] [facility] [place] Essential (primary) hypertensionPr uritus, unspecifiedPai n in left legCramp and spasmLocalized edemaVaricose veins of bilateral lower extremities with other complicationsP ain in right lower legPain in left lower legPain in right leg 4 Yasmany KEY RVT, CROW Vazquez. [address] [place] [address], [facility], [place], [id number] , [place]. tel:[phone] [facility], [address] [place] [address] Dr [address] [facility] [address], [id number], tel:[phone] CVR - [facility] Varicose veins of bilateral lower extremities with pain 4 Yasmany KEY RVT, CROW Vazquez. [address] [place] [address], Lalit willis [place], [id number] , [place]. tel:[phone] Referring Provider: George Jade MD, RVT, CROW, [address] [place] [address], [place], [address] . tel:[phone] Family History Family Member Type Diagnosis Age At Onset No Information Payers Payer name Insurance type Covered republican ID Grayson jacome(s) [employer] [place] Medicare [place] [id number] Social History Type Description Quantity Date Captured [...]
--- OUTSIDE RECORDS SUMMARY | 2024-09-29 15:29 | XMS_ITS ---
Author Organization George Dias III, MD Address [address] [place] [address] Care Team Providers Care Fitter Up Name Role Phone Joseph Valencia MD Primary Care Provider George Ren [phone] REASON FOR VISIT wants lab results done on 09/10/2023 Encounters Encounter Location Date Provider Diagnosis George Dias III, MD [address] [place] [address] [place] [address] 09/12/2023 George Dias Plan Of Treatment No Information Progress Notes * DAJA PEACE PDOB: (73 yo F)Acc No.[id number]:09/12/2023 Patient:?MARLIN PEACE :1950???Age:73 Y???Sex:Female Address:[address] [place] [address], [address] * true * Date:? Generated for Printi ng/Fanenag/eTransmitting on:?09/29/2024 03:29 PM EDT
== END 2024-09-29 16:30 | disposition home or self-care (01) ==
LOC: HO.HUSH 15:26
PROVIDERS: PCP Internal Medicine; Visit Provider Nurse Practitioner Family
DX: N13.5 Crossing vessel and stricture of ureter without hydronephrosis (principal); N20.0 Calculus of kidney
CPT/HCPCS: 99214

== ENCOUNTER → 2024-09-29 15:26 | Outpatient (BNVA) | payer MEDICARE, SELFPAY | PROVIDERS: PCP Internal Medicine; Visit Provider Nurse Practitioner Family ==

== ENCOUNTER 2024-10-30 10:15 | Outpatient (REF) | payer MEDICARE, SELFPAY ==
[2024-10-30 10:37] LABS: MANUAL DIFF FLAG NO
[2024-10-30 11:17] LABS: Basophils Absolute Auto 0.1 X10*3/uL (0.0-0.2); Basophils Percent Auto 0.9 % (0-2); Eosinophils Absolute Auto 0.3 X10*3/uL (0.0-0.4); Eosinophils Percent Auto 4.5 % (0-4); Hematocrit 43.1 % (37.0-47.0); Hemoglobin 13.6 g/dl (12.0-16.0); Imm Gran Abs Auto 0.03 X10*3/uL (0.00-0.03); Imm Gran Pct Auto 0.4 % (0.0-0.4); Lymphocytes Absolute Auto 1.7 X10*3/uL (1.2-4.9); Lymphocytes Percent Auto 22.9 % (20-40); Mean Corpuscular HGB Conc 31.6 g/dl (31.0-35.0); Mean Corpuscular Hemoglobin 30.9 pg (27.0-33.0); Mean Platelet Volume 10.5 fL (9.4-12.3); Monocytes Absolute Auto 0.6 X10*3/uL (0.1-1.2); Monocytes Percent Auto 8.3 % (2-11); Neutrophils Absolute Auto 4.6 x10*3/uL (2.0-8.3); Platelet Count 232 X10*3/uL (160-400); Red Cell Distribution Width 14.6 % (11.0-16.0); White Blood Count 7.4 X10*3/uL (4.8-10.8)
[2024-10-30 11:24] LABS: Estimated Average Glucose 111 mg/dL; Hemoglobin A1c % 5.5 % (<6.0); Total Hemoglobin (HGBA1C) 3474.5786 umol/L
--- OUTSIDE RECORDS SUMMARY | 2024-10-30 11:37 | XMS_ITS | Clinical Summary ---
Author Organization [facility] Address [address] [facility] [address] [place] [address] Phone Care Team Providers Care Boiler Technician Name Role Phone Joseph Valencia MD Primary Care Provider [phone] Allergies Active Allergy Reactions Criticality Noted Date [...] 09/14/2024 Refill [facility] [address] [place] [address] Carlos Manuel Wagoner MD 08/19/2024 Refill [facility] [address] [address] Kiran Dickerson MD 08/19/2024 Refill [facility] [address] [address] Alice Milnerxitaqueria 08/18/2024 Refill [facility] [address] [address] Kiran Dickerson MD 08/18/2024 Refill [facility] [address] [address] Kiran Dickerson MD 08/17/2024 Refill [facility] [address] [place] [address] Carlos Manuel Wagoner MD 08/15/2024 Refill [facility] [address] [address] Carlos Manuel Wagoner MD 08/11/2024 3:15 PM EDT Office [facility] [address] [place] [address] Carlos Manuel Wagoner MD Personal history of kidney stones (Primary Dx) from Last 3 Months Immunizations Immunization Administration [...] Visit [facility] [address] [place] [address] Carlos Manuel Wagoner MD [address] [address] Health Maintenance Due Date Last [...] to complete this topic Insurance Care Teams Boiler Technician Relationship Specialty Start Date End Date Joseph Valencia MD [address] LYSSA QUEZADA PCP - General Internal Medicine 08/02/23
[2024-10-30 11:54] LABS: Anion Gap 9 (12-20); Blood Urea Nitrogen 16 mg/dL (9-16); Calcium 9.2 mg/dL (8.4-10.2); Carbon Dioxide 33 mmol/L (22-29); Chloride 107 mmol/L (96-108); Cholesterol 206 mg/dL (<200); Estimated Glomerular Filt Rate > 60; Glucose Random 82 mg/dL (60-115); HDL Cholesterol 69 mg/dL (>40); LDL Cholesterol Calculated 126 mg/dL (<100); Potassium 4.1 mmol/L (3.3-5.1); Sodium 145 mmol/L (135-145); Triglycerides 58 mg/dL (<150)
[2024-10-30 12:24] LABS: TSH reflex Free T4 1.12 uIU/mL (0.32-4.0); Vitamin D 25-OH Total 38.7 ng/mL (>30)
== END 2024-10-30 10:16 | disposition home or self-care (01) ==
LOC: HO.LAB 10:15
PROVIDERS: Absent Provider Nurse Practitioner Family; PCP Internal Medicine; Visit Provider Physician Assistant
DX: M81.0 Age-related osteoporosis without current pathological fracture (principal); J44.9 Chronic obstructive pulmonary disease, unspecified; I27.20 Pulmonary hypertension, unspecified; C50.919 Malignant neoplasm of unspecified site of unspecified female breast; Z13.1 Encounter for screening for diabetes mellitus; Z13.220 Encounter for screening for lipoid disorders
CPT/HCPCS: 36415; 80048; 80061; 82306; 83036; 83970; 84443; 85025

== ENCOUNTER 2024-11-10 13:56 | Outpatient (AMB) | payer MEDICARE, SELFPAY ==
--- OUTSIDE RECORDS SUMMARY | 2023-11-06 11:00 | XMS_ITS ---
Author Organization [facility] Address [address] [place] [address] Care Team Providers Care Glove Operator Name Role Phone Joseph Valencia MD Primary Care Provider Merle Lopez [phone] Encounters Encounter Location Date Provider Diagnosis [address] [address] 11/06/2023 Merle Parker Plan Of Treatment No Information Progress Notes * Eliza RINCON PDOB: (74 yo F)Acc No.[id number]:11/06/2023 Progress Notes Patient: Jaimee AHMADIELISEO Eliza Tavares Provider: Darrick Parker DPM :1950 A ge:73 Y S ex:Female Date:11/06/2023 Address:[address] [place], [place] [phone] Pcp:Joseph Valencia MD Subjective: * Chief Complaints: * * Medical History: Objective: * Vitals: Assessment: Plan: * Treatment: * Images: * The named appointment provid er may or may not be the originator of this progress note, and it is not deemed complete until electronically signed by the appointment provider. Sign off status: Pending * Provider: Darrick Parker DPM Date: 11/06/2023 Generated for Printi ng/Faxing/eTransmitting on: 11/10/2024 02:30 PM EDT
[2024-11-10 13:59] VITALS: BP 140/52; PULSE 78; BMI 26.9
--- NOTE | 2024-11-10 13:59 | A.OFFVIS_ITS ---
Vital Signs 11/10/24 13:59 Height 5 ft 4 in Weight 156 lb 15.506 oz BMI 26.9 BP 140/52 H Blood Pressure Location Rt brachial Position Sitting Pulse 78 Pulse Source Pulse Oximeter Intake Visit Reasons: 3 mth f/up r/s 10-27-24 Sample Case Porter Required: No Allergies codeine Allergy (Severe, Verified 11/10/24 14:03) nausea eplerenone Allergy (Severe, Verified 11/10/24 14:03) Gastrointestinal Upset Penicillins Allergy (Severe, Verified 11/10/24 14:03) Anaphylaxis sulfamethoxazole (From BACTRIM) Allergy (Severe, Verified 11/10/24 14:03) HIVES/RASH/SWELLING tamsulosin Adverse Reaction (Severe, Verified 11/10/24 14:03) cardiac Medication List - Last Reconciled 11/10/24 by Zakia Kasper, [employer] REP-C acetaminophen 1,000 mg PO Q6H PRN albuterol sulfate 90 mcg/actuation (Ventolin HFA) 2 puffs inhalation Q4-6H PRN 30 days albuterol sulfate 2.5 mg (6 mL) inhalation Q4-6H PRN 30 days alprazolam 0.5 mg PO BID PRN aspirin (Adult Aspirin Regimen) 81 mg PO DAILY carvedilol 6.25 mg PO BID clobetasol 0.05% 1 appl topical DAILY diclofenac sodium 1% 4 grams topical QID diltiazem HCl CD 180 mg PO DAILY ferrous sulfate 28 mg PO DAILY fluticasone propion-salmeterol 250-50 mcg/dose (Wixela Inhub) 1 ea inhalation BID 30 days furosemide (Lasix) 20 mg orally 2 tabs in the am and 1 tab in the afternoon; 30 days inhalational spacing device (BreatheRite MDI Spacer) As directed letrozole 2.5 mg PO DAILY mesalamine 4.8 grams PO DAILY multivitamin 1 tab PO DAILY omeprazole 20 mg PO BID potassium chloride ER 20 mEq PO ONCE sertraline mg PO DAILY tiotropium bromide (Spiriva with HandiHaler) 1 cap inhalation DAILY 30 days HPI HPI 3 mth f/up r/s 10-27-24: Details: Eliza is a 74-year-old female with past medical history of hypertension, pulmonary hypertension, COPD, mild aortic stenosis, zcos-qq-[id number] mitral regurgitation who presents for follow-up of leg edema. Today she reports that her leg edema is overall unchanged with the increased dose of Lasix. She tells me she has Estuardo wraps but does not wear them consistently. She is on her feet much of the day taking care of her disabled sister. She says at times she sleeps in a recliner and her legs are dependent. No chest discomfort at rest or with activity. She will get some shortness of breath with exertional activities. No lightheadedness, presyncope, syncope. She ambulates with a walking stick. No concerning heart palpitations. Taking meds as directed. [facility] Medical History Breast cancer Essential hypertension Hypercalcemia Slow to wake up after anesthesia Hx of radiation therapy Hiatal hernia PONV (postoperative nausea and vomiting) Anemia History of kidney stones Proctitis Arthritis Anxiety Hyperparathyroidism Lung cancer GERD (gastroesophageal reflux disease) Asthma-COPD overlap syndrome Pulmonary hypertension Surgical History History of parathyroidectomy H/O cataract extraction Hx of cardiac catheterization Hx of varicose vein ligation and stripping History of lumpectomy of both breasts History of right inguinal hernia repair History of lithotripsy History of lobectomy of lung Hx of colonoscopy (~01/04/24) History of esophagogastroduodenoscopy Family History Mother Breast cancer Bone cancer Heart attack Father Abdominal aneurysm Enlarged heart Brother Lung cancer Brain cancer Social History Household Members: Family Household Members Other:: Sister Housing: House Are you a primary child care development specialist to a significant other at home: Yes (Sister) Do you presently have visiting nurse or other home services: No Alcohol intake: former Patient Tobacco Use Status: Former Tobacco user Tobacco use type: Cigarette Years Smoked: 31 service: No Current occupational status: retired Cognitive needs: Yes (cane) Hearing needs: No Vision needs: Yes (Reading) Review of Systems Const All systems reviewed & are unremarkable except as noted in HPI and below ENT Denies dizziness Card Denies chest pain, Denies chest pain at rest, Denies chest pain with activity, Denies rapid heart rate, Denies pedal edema, Denies edema, Reports leg edema, Denies lightheadedness, Denies palpitations, Denies dyspnea, Denies dyspnea on exertion and Denies orthopnea Resp Denies cough, Denies dyspnea and Denies dyspnea on exertion GI Denies hematochezia and Denies change in stool character Musc Reports abnormal gait (uses walking stick), Denies limited range of motion, Denies muscle cramps, Denies muscle weakness, Denies numbness, Denies radiating pain into limb, Denies stiffness and Denies tingling Neuro Reports abnormal gait (uses walking stick), Denies dizziness, Denies numbness and Denies tingling Endo Denies palpitations Physical Exam Vital Signs: Last Vital Signs Pulse 78 11/10/24 13:59 BP 140/52 H 11/10/24 13:59 BMI result Body Mass Index 26.9 Const General: cooperative, healthy appearing, comfortable and no acute distress Orientation/consciousness: patient oriented x3 Neck Neck: Yes normal visual inspection Resp Effort & Inspection: normal respiratory effort Auscultation: clear to auscultation bilaterally, no rales, no rhonchi and no wheezes Cardio Jugular venous distension: no JVD Rate: regular rate Rhythm: regular rhythm Heart sounds: S1 normal heart sound present, S2 normal heart sound present, no g allops, no murmurs and no rubs Neuro General: patient oriented x3 Extrem Other: piting edema, each lower leg, skin intact Psych Appearance: grossly normal Mental Status: mental status grossly normal Speech and movement: Normal speech and movement present Assessment & Plan Assessment & Plan (1) Edema: Code(s): R60.9 - Edema, unspecified Category: Medical Plan: Bilateral lower leg edema, pitting which has been chronic. Her echo shows normal EF and grade 1 diastolic dysfunction. She also may have issues with venous insufficiency. She tells me she did have an ablation on the left leg, not on the right leg. She has visible varicosities. Recommended conservative measures, using her Estuardo wraps and compression stockings. Her Lasix has been increased and she is currently on 60 mg total per day. Labs done 10/30/2024 showed potassium 4.1, creatinine 0.62. Reviewed low-salt diet, leg elevation, avoid sleeping with legs in dependent position. (2) Chest discomfort: Code(s): R07.89 - Other chest pain Category: Medical Plan: Prior reports of chest discomfort, randomly occurring. She has no known history of coronary artery disease. Cardiac risk factors of age, hypertension, sedentary. EKG did not show acute findings. Echocardiogram was done on 06/09/2024 showing EF 65%, aortic sclerosis, no stenosis, severe mitral annular calcification, mitral stenosis with mean gradient 6 mmHg. A nuclear stress test was ordered however not completed by her. On follow-up she has reported a resolution of her symptom. Today she reports feeling well. Signs and symptoms of angina reviewed with her. Emergency care if needed for symptoms. (3) Heart palpitations: Code(s): R00.2 - Palpitations Category: Medical Plan: Prior Reports of heart palpitations like her heart is beating fast, currently not bothersome. Symptoms much improved after the addition of diltiazem in addition to her carvedilol. Holter monitor had been done 02/22/2024 for 3 days shows sinus rhythm with average heart rate 81, PACs 0.9%. She is most likely feeling PACs or brief atrial runs. No med changes at this time. (4) Nonrheumatic aortic (valve) stenosis: Code(s): I35.0 - Nonrheumatic aortic (valve) stenosis Category: Medical Plan: 2022 echo shows mild aortic stenosis. Echocardiogram 06/09/2024 showing aortic sclerosis, no stenosis. Faint murmur on exam. (5) Non-rheumatic mitral regurgitation: Code(s): I34.0 - Nonrheumatic mitral (valve) insufficiency Category: Medical Plan: 2022 echo shows judi-na-hyawqkqt mitral regurgitation. Recent echo shows severe mitral annular calcification, mild MR, mitral stenosis, mean gradient 6 mmHg, which is moderate range. Reviewed this with her. Will plan for repeat echo 1 year, sooner if needed.- do 05/2025 (6) Preop cardiovascular exam: Code(s): Z01.810 - Encounter for preprocedural cardiovascular examination Category: Medical Plan: Preop for colonoscopy. She can proceed with low to intermediate cardiac risk. Aspirin can be held as needed for the procedure. Call/consult Cardiology if needed. Plan I discussed with the patient the importance of adhering to the Lasix regimen and provided flexibility in dosing to improve compliance. We reviewed the benefits of continuing diltiazem for her cardiac symptoms. I advised on the use of Estuardo wraps and leg elevation to manage edema. We discussed the upcoming colonoscopy for ulcerative colitis management. Patient Instructions: - Continue taking Lasix as prescribed, with the option to take the full dose at once if needed. - Keep taking diltiazem as it helps with palpitations and chest discomfort. - Use Estuardo wraps and elevate legs to help with swelling. Patient was informed and verbally consented to the use of an ambient scribe for clinic note documentation during this visit. Visit time spent on chart review, interview, assessment, orders, documentation. Coding Level of Care Code Est Pt Level 4 (16880) Complex EM visit Add On G2211 Diagnoses Edema R60.9 Chest discomfort R07.89 Heart palpitations R00.2 Nonrheumatic aortic (valve) stenosis I35.0 Non-rheumatic mitral regurgitation I34.0 Preop cardiovascular exam Z01.810 Time Spent (min) 36
--- OUTSIDE RECORDS SUMMARY | 2024-11-10 14:30 | XMS_ITS | Clinical Summary ---
Author Organization [facility] Address [address] [facility] [address] [place] [address] Phone Care Team Providers Care Boot Maker Name Role Phone Joseph Valencia MD Primary Care Provider [phone] Allergies Active Allergy Reactions Criticality Noted Date [...] 09/14/2024 Refill [facility] [address] [place] [address] Carlos Manuel Wagoner MD 08/19/2024 Refill [facility] [address] [address] Kiran Dickerson MD 08/19/2024 Refill [facility] [address] [address] Alice Milnerxitaqueria 08/18/2024 Refill [facility] [address] [address] Kiran Dickerson MD 08/18/2024 Refill [facility] [address] [address] Kiran Dickerson MD 08/17/2024 Refill [facility] [address] [place] [address] Carlos Manuel Wagoner MD 08/15/2024 Refill [facility] [address] [address] Carlos Manuel Wagoner MD 08/11/2024 3:15 PM EDT Office Visit [facility] [address] [place] [address] Carlos Manuel Wagoner MD Personal history of [...] Visit [facility] [address] [place] [address] Carlos Manuel Wagoner MD [address] [address] Health Maintenance Due Date Last [...] to complete this topic Insurance Care Teams Boot Maker Relationship Specialty Start Date End Date Joseph Valencia MD [address] LYSSA QUEZADA PCP - General Internal Medicine 08/02/23
--- OUTSIDE RECORDS SUMMARY | 2024-11-10 14:31 | XMS_ITS | Patient Health Record ---
Author Organization George Dias III, MD Address [address] [place] [address] Care Team Providers Care Heavy Truck Technician Name Role Phone Joseph Valencia MD Primary Care Provider George Ren Unavailable [phone] Allergies Allergen (clinical drug ingredient) Drug/Non Drug [...] Problem Status W/U Status Risk Notes Problem 5047159 Former smoker (Z87.891) Active confirmed She has been abstinent since 1998. She has a plan to prevent relapse in times of stress and illness. Problem Fibromyalgia (721048959) Fibromyalgia (M79.7) Active confirmed Her symptoms ar e stable and unchanged. Problem 796407599 Overweight (E66.3) Active confirmed This problem duron s resolved and will be removed from her problem list Problem 60767746 Allergy to sulfa drugs (Z88.2) Active confirmed Problem 094675660 GERD without esophagitis (K21.9) Active confirmed Her reflux symptoms are well controlled with dkrg-edg-lzfciwz medication. Problem 64355832 Essential hypertension (I10) Active confirmed Her blood pressure is 134/71. She is stable and no change in her regimen was needed. I recommended continued sodium restriction. Problem 14763548 Penicillin allergy (Z88.0) Active confirmed Problem 130791417757604 Hematochezia (K92.1) Active confirmed #4 days. She isn't visible streaks of red blood in her stool. She will be referred to her gastroenterologi st for colonoscopy. 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 Problem 811634378 Renal cyst (N28.1) Active confirmed Diagnosis will be followed. 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 She has begun on anastrozole. She will have a radiation therapy consultation. Because of diffuse aches and pains. We have temporarily stopped anastrozole. Problem Psoriatic arthritis (934137238) Psoriatic arthritis (L40.50) Active confirmed She has [...] Provider Diagnosis George Dias III, MD [address] [place] [address] [place] [address] 03/07/2024 George Dias Ductal carcinoma in situ [...] Her reflux symptoms are well controlled with bevk-tzr-fnhzsyf medication. 03/07/2024 Former smoker (ICD-10 - Z87.891) [...] Insured Coverage Start Date Coverage End Date [address] [place] [address] [id number] DAJA POWELL Self - patient is the [...] l right kidney former smoker since 1998 [id number] son [id number] invasive ductal carcinoma left breast April [id number] DCIS right breast, surgery and RT Breast Cancer in 2021, High Blood Pressu re, Ulcerated Colitis Surgical History Surgery Date(Month/Year) Breast cancer surgery in 2021 2021 Lumpectomy and sentinel node biopsy left breast, [facility], Dr. Mixon 04/2021 multiple negative endometrial biopsies Right breast lumpectomy with 2 needle lo calization (DP) 03/2019 36 weeks radiation . Left breast 11/1998 1 major vein removed- Dr. Lo 2 major veins removed right leg Lumpectomy and sentinel nodes left breas t 1998 right upper lobectomy, stage I adenocarc inoma of, Dr. Scherer 1998
--- OUTSIDE RECORDS SUMMARY | 2024-11-10 14:31 | XMS_ITS | Patient Health Record ---
Author Organization [facility] Address [address] [place] [address] Care Team Providers Care Payment Collector Name Role Phone APOORVA HILL Primary Care Provider George Valente Unavailable [phone] George Dias MD Unavailable Unavailable Allergies Allergen (clinical drug ingredient) Drug/Non Drug Allergy documented on EMR Reaction Allergy Type Onset Date Status codeine Codeine Unknown Drug Allergy Active Substance with sulfonamide structure and antibacterial mechanism of action (substance) Sulfa (uncoded) Unknown Allergy Active Penicillin (uncoded) Unknown Allergy Active Results Component Value Reference Range Notes Pathology Reviewed date:01/17/2024 02:55:38 PM Interpretation: Performing Lab:[facility], [address] [place] [id number] Notes/Report: Reason For Referral No Information Medications Medication SIG (Take, Route, Frequency, Duration) Notes Start Date End Date Status Tylenol Extra Strength Active Carvedilol 3.125 MG PLEASE SEE ATTACHED FOR DETAILED DIRECTIONS Oral for 90 Active mobli Active Letrozole 2.5 MG Oral for 90 A ctive Mesalamine 1000 MG 1 suppository at bedtime Rectal Every night at bedtime for 30 day(s) 07/20/2023 Not-Taking Albuterol Sulfate HFA 108 (90 Base) MCG/ACT Inhalation for 25 Active Turmeric Not-Taking ALPRAZolam 0.5 MG as directed Orally 4x a day Active Furosemide 40 MG 1 tablet Orally 40 mg in am 20 mg in pm Active Aspir-81 once a day Active Lialda 1.2 GM 4 Orally Once a day for 30 day(s) Please let my office know if the insurance is not covering this and we can try a different mesalamine product. Thanks 01/05/2024 Not-Taking Potassium Chloride ER 10 MEQ Oral for 90 Active Omeprazole 20 MG 1 Orally BID Active Potassium Chloride ER 10 MEQ Oral for 90 Days Active Iron Active Mesalamine 1.2 GM 4 Orally Once a day for 30 day(s) 02/02/2024 Not-Taking Multivitamin - 1 tablet Orally Once a day for 30 day(s) Active Mesalamine 1000 MG 1 Rectal Nightly for 30 days Active Albuterol Sulfate (2.5 MG/3ML) 0.083% INHALE 1 VIAL EVERY 4 HOURS BY MOUTH NEEDED Inhalation for 25 Active dilTIAZem HCl ER Coated Beads 180 MG TAKE ONE CAPSULE BY MOUTH DAILY Oral for 90 Active Immunizations Vaccine Route Administration Date Status [...] Problem Status W/U Status Risk Notes Problem 36362387 Epigastric abdominal pain (R10.13) Active confirmed Problem Screening for malignant neoplasm of colon (419903402) Encounter for screening for malignant neoplasm of colon (Z12.11) Active confirmed Problem History of polyp of colon (situation) (668300888) Personal history of colonic polyps (Z86.010) Active confirmed Problem Diverticular disease of colon (217766796) Diverticulosis of large intestine without perforation or abscess without bleeding (K57.30) Active confirmed Problem 323010492 Gastroesophageal reflux disease, esophagitis presence not specified (K21.9) Active confirmed Problem 14530773 Rectal bleed (K62.5) Active confirmed Problem Benign neoplasm of colon (63963264) 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 Problem Ulcerative colitis (42445738) Ulcerative colitis (K51.90) Active confirmed Problem Proctitis (5611495) 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) Active confirmed Problem Diverticulosis of colon (588996886) Diverticulosis of colon (K57.30) Active confirmed Vital Signs Temperature 98.6 degrees Fahrenheit 06/11/2024 Blood pressure diastolic 77 mm Hg 10/15/2024 Height 65 in 10/15/2024 Blood pressure systolic 111 mm Hg 10/15/2024 Weight 155 lbs 10/15/2024 BMI 25.79 kg/m2 10/15/2024 Procedures Procedure Date Ordered Date Performed Result Body Sit e COLONOSCOPY 10/15/2024 N/A Encounters Encounter Location Date Provider Diagnosis [facility] Outpatient [address] [place] [phone] 01/04/2024 George Nguyen Colon cancer screeni ng Z12.11 ; Colon polyps K63.5 ; Ulcerative colitis K51.90 and Diverticulosis of large intestine without perforation or abscess without bleeding K57.30 [facility] [address] [place] [address] 06/11/2024 George Nguyen Ulcerative colitis K51.90 ; Encounter for screening for malignant neoplasm of colon Z12.11 and Personal history of colonic polyps Z86.010 [facility] [address] [place] [phone] 10/15/2024 George Nguyen Rectal bleed K62.5 ; Ulcerative colitis K51.90 ; Gastroesophageal reflux disease, esophagitis presence not specified K21.9 ; Tubulovillous adenoma of colon K63.5 and Encounter for screening for malignant neoplasm of colon Z12.11 [facility] [address] [place] [phone] 12/31/2023 George Nguyen [facility] [address] [place] [address] 01/03/2024 George Nguyen [facility] [address] [place] [phone] 01/05/2024 George Nguyen [facility] [address] [place] [phone] 02/02/2024 [facility] [address] [place] [address] 02/06/2024 [facility] [address] [place] [address] 02/11/2024 [facility] [address] [place] [address] 03/05/2024 [facility] [address] [place] [address] 04/02/2024 George Nguyen [facility] [address] [place] [address] 06/17/2024 [facility] [address] [place], [place] [address], [place] [address] 10/16/2024 George Nguyen Assessments Encounter Date Diagnosis (ICD [...] to keep you advised of her progress. 10/15/2024 Rectal bleed (ICD-10 - K62.5) Overall, Daja appears well. She is not having any active symptoms of the underlying ulcerative colitis other than occasional bright red blood on an otherwise normal-appearin g bowel movement. She is inclined to continue to remain off any medication for the colitis since she is presently feeling well. I did review with her that it is her prerogative but certainly if she has a flareup of her colitis symptoms we would need to address that and I advised her to certainly call sooner, rather than later, if that happens. I did recommend a follow-up colonoscopy for her later this summer as that will be the 1 year traci since the colonoscopy last year revealed multiple and somewhat large polyps. We did review the rationale for this in regard to colorectal cancer prevention and/or early detection. Full consent has been obtained from her for this, including risks of bleeding and perforation. The procedure will be done with monitored anesthesia care. She was given the below instructions regarding adjustment of her medications for the procedure. I shall check a CBC as I do not see a recent blood count in her records and she does have some fatigue along with the intermittent rectal bleeding with her bowel movements. I did advise Daja to contact me prior to the colonoscopy if she has any flareup in regard to her underlying colitis symptoms. Daja was comfortable with this plan. Thank you again for allowing me to participate in Daja's care. I shall continue to keep you advised of her progress. 10/15/2024 Ulcerative colitis (ICD-10 - K51.90) Overall, Daja appears well. She is not having any active symptoms of the underlying ulcerative colitis other than occasional bright red blood on an otherwise normal-appearin g bowel movement. She is inclined to continue to remain off any medication for the colitis since she is presently feeling well. I did review with her that it is her prerogative but certainly if she has a flareup of her colitis symptoms we would need to address that and I advised her to certainly call sooner, rather than later, if that happens. I did recommend a follow-up colonoscopy for her later this summer as that will be the 1 year traci since the colonoscopy last year revealed multiple and somewhat large polyps. We did review the rationale for this in regard to colorectal cancer prevention and/or early detection. Full consent has been obtained from her for this, including risks of bleeding and perforation. The procedure will be done with monitored anesthesia care. She was given the below instructions regarding adjustment of her medications for the procedure. I shall check a CBC as I do not see a recent blood count in her records and she does have some fatigue along with the intermittent rectal bleeding with her bowel movements. I did advise Daja to contact me prior to the colonoscopy if she has any flareup in regard to her underlying colitis symptoms. Daja was comfortable with this plan. Thank [...] to keep you advised of her progress. 10/15/2024 Gastroesophageal reflux disease, esophagitis presence not specified (ICD-10 - K21.9) Continue omerpazole for the acid reflux Overall, Daja appears well. She is not having any active symptoms of the underlying ulcerative colitis other than occasional bright red blood on an otherwise normal-appearin g bowel movement. She is inclined to continue to remain off any medication for the colitis since she is presently feeling well. I did review with her that it is her prerogative but certainly if she has a flareup of her colitis symptoms we would need to address that and I advised her to certainly call sooner, rather than later, if that happens. I did recommend a follow-up colonoscopy for her later this summer as that will be the 1 year traci since the colonoscopy last year revealed multiple and somewhat large polyps. We did review the rationale for this in regard to colorectal cancer prevention and/or early detection. Full consent has been obtained from her for this, including risks of bleeding and perforation. The procedure will be done with monitored anesthesia care. She was given the below instructions regarding adjustment of her medications for the procedure. I shall check a CBC as I do not see a recent blood count in her records and she does have some fatigue along with the intermittent rectal bleeding with her bowel movements. I did advise Daja to contact me prior to the colonoscopy if she has any flareup in regard to her underlying colitis symptoms. Daja was comfortable with this plan. Thank you again for allowing me to participate in Daja's care. I shall continue to keep you advised of her progress. 01/04/2024 Diverticulosis of large intestine without perforation or abscess without bleeding (ICD-10 - K57.30) 10/15/2024 Tubulovillous adenoma of colon (ICD-10 - K63.5) Overall, Daja appears well. She is not having any active symptoms of the underlying ulcerative colitis other than occasional bright red blood on an otherwise normal-appearin g bowel movement. She is inclined to continue to remain off any medication for the colitis since she is presently feeling well. I did review with her that it is her prerogative but certainly if she has a flareup of her colitis symptoms we would need to address that and I advised her to certainly call sooner, rather than later, if that happens. I did recommend a follow-up colonoscopy for her later this summer as that will be the 1 year traci since the colonoscopy last year revealed multiple and somewhat large polyps. We did review the rationale for this in regard to colorectal cancer prevention and/or early detection. Full consent has been obtained from her for this, including risks of bleeding and perforation. The procedure will be done with monitored anesthesia care. She was given the below instructions regarding adjustment of her medications for the procedure. I shall check a CBC as I do not see a recent blood count in her records and she does have some fatigue along with the intermittent rectal bleeding with her bowel movements. I did advise Daja to contact me prior to the colonoscopy if she has any flareup in regard to her underlying colitis symptoms. Daja was comfortable with this plan. Thank you again for allowing me to participate in Daja's care. I shall continue to keep you advised of her progress. 10/15/2024 Encounter for screening for malignant neoplasm of colon (ICD-10 - Z12.11) Overall, Daja appears well. She is not having any active symptoms of the underlying ulcerative colitis other than occasional bright red blood on an otherwise normal-appearin g bowel movement. She is inclined to continue to remain off any medication for the colitis since she is presently feeling well. I did review with her that it is her prerogative but certainly if she has a flareup of her colitis symptoms we would need to address that and I advised her to certainly call sooner, rather than later, if that happens. I did recommend a follow-up colonoscopy for her later this summer as that will be the 1 year traci since the colonoscopy last year revealed multiple and somewhat large polyps. We did review the rationale for this in regard to colorectal cancer prevention and/or early detection. Full consent has been obtained from her for this, including risks of bleeding and perforation. The procedure will be done with monitored anesthesia care. She was given the below instructions regarding adjustment of her medications for the procedure. I shall check a CBC as I do not see a recent blood count in her records and she does have some fatigue along with the intermittent rectal bleeding with her bowel movements. I did advise Daja to contact me prior to the colonoscopy if she has any flareup in regard to her underlying colitis symptoms. Daja was comfortable with this plan. Thank you again for allowing me to participate in Daja's care. I shall continue to keep you advised of her progress. Plan Of Treatment Pending Test Test Name Order Date COLONOSCOPY 10/15/2024 CBC w DIFF 10/15/2024 US ABD 02/10/2020 Future Test Test Name Order Date UPPER GI ENDOSCOPY 01/22/2020 COLONOSCOPY 01/22/2020 COLONOSCOPY 09/29/2020 COLONOSCOPY 09/26/2023 Next Appt Details Provider Name:George Nguyen , 12/01/2024 02:50:00 PM, [address] [place] [address] , [place], [place], [phone], Insurance Providers Payer Name Payer Address Payer Phone Subscriber Number Group Number Insured Name Patient Relationship to Insured Coverage Start Date Coverage End Date [facility] [address] [place] [phone] [id number] DAJA YOUNG Self - patient is the insured Medical [...] and distal colitis. Surgical History Surgery Date(Month/Year) Parathyroid surgery scheduiled for at [facility] Vein surgery left leg - Dr. Aponte 01/2023 Lasik surgery on both eyes Cateracts left and right -Dr. Newton Right inguinal hernia repair Lumpectomies right and left breast for cancer with left sided node dissection RUL lung resection for cancer
== END 2024-11-10 14:38 | disposition home or self-care (01) ==
LOC: HO.HCS 13:56
PROVIDERS: PCP Internal Medicine; Visit Provider Nurse Practitioner Family
DX: R60.9 Edema, unspecified (principal); R07.89 Other chest pain; R00.2 Palpitations; I35.0 Nonrheumatic aortic (valve) stenosis; I34.0 Nonrheumatic mitral (valve) insufficiency; Z01.810 Encounter for preprocedural cardiovascular examination
CPT/HCPCS: 99214; G2211

== ENCOUNTER → 2024-11-10 13:56 | Outpatient (BNVA) | payer MEDICARE, SELFPAY | PROVIDERS: PCP Internal Medicine; Visit Provider Nurse Practitioner Family | DX: Z01.810 Encounter for preprocedural cardiovascular examination (principal); R00.2 Palpitations; R60.9 Edema, unspecified; I35.0 Nonrheumatic aortic (valve) stenosis; I34.0 Nonrheumatic mitral (valve) insufficiency | CPT/HCPCS: 99212 ==

== ENCOUNTER 2024-11-20 15:50 | Outpatient (AMB) | payer MEDICARE, SELFPAY ==
--- OUTSIDE RECORDS SUMMARY | 2023-09-19 11:00 | XMS_ITS | Continuity of Care Document ---
Author Organization [facility] Address [address] [place] [address] Phone Care Team Providers Care Chair Inspector And Leveler Name Role Phone Yasmany KEY, GARDENIA, George [...] Telemedicine [place] & [place] [facility], [address] [place] [address] [address], [place], [id number], [place] tel:[phone] R - [place] - [place] Varicose veins of bilateral lower extremities with other complicationsL ocalized edemaCramp and spasmPruritus, unspecifiedEss ential (primary) hypertension 4 Yasmany KEY, GARDENIA, CROW Vazquez. [address], [address], [facility], [id number] , [place]. tel:[phone] Offic Cons New/estab Mod-hi 60- [place] & [place] [facility], [address] [place] [address] [address], [place], [id number], tel:[phone] CVR - [place] - [place] Essential (primary) hypertensionPr uritus, unspecifiedPai n in left legCramp and spasmLocalized edemaVaricose veins of bilateral lower extremities with other complicationsP ain in right lower legPain in left lower legPain in right leg 4 Yasmany KEY RVT, CROW Vazquez. [address] [place] [address], [facility] [place], [place], [id number] , [place]. tel:[phone] [facility], [address] [place] [address] Dr [address] [address], [id number], tel:[phone] CVR - [facility] Varicose veins of bilateral lower extremities with pain 4 Yasmany KEY RVT, CROW Vazquez. [address] [place] [address], Lalit willis [place], [id number] , [place]. tel:[phone] Referring Provider: George Jade MD, RVT, CROW, [address] [place] [address], [place], [address] . tel:[phone] Family History Family Member Type Diagnosis Age At Onset No Information Payers Payer name Insurance type Covered constitution party ID Grayson jacome(s) [employer] [place] [employer] [place] [id number] Social History Type Description Quantity Date Captured [...]
--- OUTSIDE RECORDS SUMMARY | 2023-11-06 11:00 | XMS_ITS ---
Author Organization [facility] Address [address] [place] [address] Care Team Providers Care Elementary School Professional Name Role Phone Joseph Valencia MD Primary Care Provider Merle Lopez [phone] Encounters Encounter Location Date Provider Diagnosis [address] [address] 11/06/2023 Merle Parker Plan Of Treatment No Information Progress Notes * Eliza RINCON PDOB: (74 yo F)Acc No.[id number]:11/06/2023 Progress Notes Patient: Jaimee AHMADIELISEO Eliza Tavares Provider: Darrick Parker DPM :1950 A ge:73 Y S ex:Female Date:11/06/2023 Address:[address] [place], [place] [phone] Pcp:Joseph Valencia MD Subjective: * Chief Complaints: [...] Date: 11/06/2023 Generated for Printi ng/Faxing/eTransmitting on: 11/20/2024 03:53 PM EDT
--- OUTSIDE RECORDS SUMMARY | 2024-11-20 15:53 | XMS_ITS | Clinical Summary ---
Author Organization [facility] Address [address] [facility] [address] [place] [address] Phone Care Team Providers Care Electric Meter Installer Name Role Phone Jsoeph Valencia MD Primary Care Provider [phone] Allergies Active Allergy Reactions Criticality Noted Date [...] 09/14/2024 Refill [facility] [address] [place], [place] [address] Carlos Manuel Wagoner MD from Last 3 [...] Visit [facility] [address] [place] [address] Carlos Manuel Wagoner MD [address] [facility] [address] [place] [address] Health Maintenance Due Date Last Done Comments Breast Cancer Screening 1950 Colorectal Cancer Screening: Annual FOBT 1998 Colorectal Cancer Screening: Colonoscopy 1998 Colorectal Cancer Screening: Sigmoidoscopy 1998 Pneumococcal Vaccine: 50+ Years (3 of 3 - PCV20 or PCV21) 02/01/2015 12/07/2014, 12/05/2006 Influenza Vaccine (#1) 2025 5, 03/06/2011 Hepatitis B Vaccine Aged Out No longe r eligible based on patient's age to complete this topic Insurance [facility] Care Teams Electric Meter Installer Relationship Specialty Start Date End Date Joseph Valencia MD [address] [place] [address] [address] [place], [place] PCP - General Internal Medicine 08/02/23
--- OUTSIDE RECORDS SUMMARY | 2024-11-20 15:53 | XMS_ITS | Patient Health Record ---
Author Organization George Dias III, MD Address [address] [place] [address] Care Team Providers Care Compilation Clerk Name Role Phone Joseph Valencia MD Primary Care Provider George Ren Unavailable [phone] Allergies Allergen (clinical drug ingredient) Drug/Non Drug [...] Problem Status W/U Status Risk Notes Problem 5899598 Former smoker (Z87.891) Active confirmed She has been abstinent since 1998. She has a plan to prevent relapse in times of stress and illness. Problem Fibromyalgia (620174407) Fibromyalgia (M79.7) Active confirmed Her symptoms ar e stable and unchanged. Problem 910345017 Overweight (E66.3) Active confirmed This problem duron s resolved and will be removed from her problem list Problem 70201582 Allergy to sulfa drugs (Z88.2) Active confirmed Problem 620066578 GERD without esophagitis (K21.9) Active confirmed Her reflux symptoms are well controlled with [id number] medication. Problem 48084082 Essential hypertension (I10) Active confirmed Her blood pressure is 134/71. She is stable and no change in her regimen was needed. I recommended continued sodium restriction. Problem 76282574 Penicillin allergy (Z88.0) Active confirmed Problem 657411428668717 Hematochezia (K92.1) Active confirmed #4 days. She isn't visible streaks of red blood in her stool. She will be referred to her gastroenterologi st for colonoscopy. 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 Problem 917913787 Renal cyst (N28.1) Active confirmed Diagnosis will be followed. 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 She has begun on anastrozole. She will have a radiation therapy consultation. Because of diffuse aches and pains. We have temporarily stopped anastrozole. Problem Psoriatic arthritis (902413371) Psoriatic arthritis (L40.50) Active confirmed She has [...] Provider Diagnosis George Dias III, MD [address] [place] [address] [place] [address] 03/07/2024 George Dias Ductal carcinoma in situ [...] Her reflux symptoms are well controlled with [id number] medication. 03/07/2024 Former smoker (ICD-10 - Z87.891) [...] Insured Coverage Start Date Coverage End Date [address] [place] [address] [phone] [id number] DAJA POWELL Self - patient is the [...] l right kidney former smoker since 1998 [id number] son [id number] invasive ductal carcinoma left breast April [id number] DCIS right breast, surgery and RT Breast Cancer in 2021, High Blood Pressu re, Ulcerated Colitis Surgical History Surgery Date(Month/Year) Breast cancer surgery in 2021 2021 Lumpectomy and sentinel node biopsy left breast, [facility], Dr. Mixon 04/2021 multiple negative endometrial biopsies Right breast lumpectomy with 2 needle lo calization (DP) 03/2019 36 weeks radiation . Left breast 11/1998 1 major vein removed- Dr. Lo 2 major veins removed right leg Lumpectomy and sentinel nodes left breas t 1998 right upper lobectomy, stage I adenocarc inoma of, Dr. Scherer 1998
--- OUTSIDE RECORDS SUMMARY | 2024-11-20 15:54 | XMS_ITS | Patient Health Record ---
Author Organization [facility] Address [address] [place] [address] Care Team Providers Care Dog Breeder Name Role Phone APOORVA HILL Primary Care Provider George Valente Unavailable [phone] George Dias MD Unavailable Unavailable Allergies Allergen (clinical drug ingredient) Drug/Non Drug Allergy documented on EMR Reaction Allergy Type Onset Date Status codeine Codeine Unknown Drug Allergy Active Substance with sulfonamide structure and antibacterial mechanism of action (substance) Sulfa (uncoded) Unknown Allergy Active Penicillin (uncoded) Unknown Allergy Active Results Component Value Reference Range Notes Pathology Reviewed date:01/17/2024 02:55:38 PM Interpretation: Performing Lab:[facility], [address] [place] [id number] Notes/Report: Reason For Referral No Information Medications Medication SIG (Take, Route, Frequency, Duration) Notes Start Date End Date Status Tylenol Extra Strength Active Carvedilol 3.125 MG PLEASE SEE ATTACHED FOR DETAILED DIRECTIONS Oral for 90 Active [employer] Active Letrozole 2.5 MG Oral for 90 [...] Problem Status W/U Status Risk Notes Problem 31990829 Epigastric abdominal pain (R10.13) Active confirmed Problem Screening for malignant neoplasm of colon (850870034) Encounter for screening for malignant neoplasm of colon (Z12.11) Active confirmed Problem History of polyp of colon (situation) (230260362) Personal history of colonic polyps (Z86.010) Active confirmed Problem Diverticular disease of colon (464584221) Diverticulosis of large intestine without perforation or abscess without bleeding (K57.30) Active confirmed Problem 425100599 Gastroesophageal reflux disease, esophagitis presence not specified (K21.9) Active confirmed Problem 14421999 Rectal bleed (K62.5) Active confirmed Problem Benign neoplasm of colon (75284926) 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 Problem Ulcerative colitis (49373175) Ulcerative colitis (K51.90) Active confirmed Problem Proctitis (3840983) 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) Active confirmed Problem Diverticulosis of colon (251035136) Diverticulosis of colon (K57.30) Active confirmed Vital Signs Temperature 98.6 degrees Fahrenheit 06/11/2024 Blood pressure diastolic 77 mm Hg 10/15/2024 Height 65 in 10/15/2024 Blood pressure systolic 111 mm Hg 10/15/2024 Weight 155 lbs 10/15/2024 BMI 25.79 kg/m2 10/15/2024 Procedures Procedure Date Ordered Date Performed Result Body Sit e COLONOSCOPY 10/15/2024 N/A Encounters Encounter Location Date Provider Diagnosis [facility] [address] [place] [phone] 01/04/2024 George Nguyen Colon cancer screeni ng Z12.11 ; Colon polyps K63.5 ; Ulcerative colitis K51.90 and Diverticulosis of large intestine without perforation or abscess without bleeding K57.30 [facility] [address] [place] [address] 06/11/2024 George Nguyen Ulcerative colitis K51.90 ; Encounter for screening for malignant neoplasm of colon Z12.11 and Personal history of colonic polyps Z86.010 [facility] [address] [place] [address] 10/15/2024 George Nguyen Rectal bleed K62.5 ; Ulcerative colitis K51.90 ; Gastroesophageal reflux disease, esophagitis presence not specified K21.9 ; Tubulovillous adenoma of colon K63.5 and Encounter for screening for malignant neoplasm of colon Z12.11 [facility] [address] [place] [address] 12/31/2023 George Nguyen [facility] [address] [place] [address] 01/03/2024 George Nguyen [facility] [address] [place] [address] 01/05/2024 George Nguyen [facility] [address] [place] [address] 02/02/2024 [facility] [address] [place] [address] 02/06/2024 [facility] [address] [place] [address] 02/11/2024 [facility] [address] [place] [address] 03/05/2024 [facility] [address] [place] [address] 04/02/2024 George Nguyen [facility] [address] [place] [address] 06/17/2024 [facility] [address] [place], [place] [address] [address] 10/16/2024 George Nguyen Assessments Encounter Date Diagnosis [...] Provider Name:George Nguyen , 12/01/2024 02:50:00 PM, [address] [place] [address] , [place], [place], [phone], Insurance Providers Payer Name Payer Address Payer Phone Subscriber Number Group Number Insured Name Patient Relationship to Insured Coverage Start Date Coverage End Date [facility] [address] [place] [phone] [id number] DAJA YOUNG Self - patient is the insured Medical (General) History Medical History History ICD Code Lung cancer - 1998--Removed upper right lobe Breast cancer-1998 Left--surgery and XRT ; and 03/2019 Right--surgery and XRT GERD Overactive parathyroid Anxiety Arthritis Colonoscopy in 2004 was neg. except for a hyperplastic polyp Denies MS,DM,CVA,renal disease COPD Colonscopy in 01/2020 with a [...] Surgery Date(Month/Year) Parathyroid surgery scheduiled for at [facility] Vein surgery left leg - Dr. Aponte 01/2023 Lasik surgery on both eyes Cateracts left and right -Dr. Newton Right inguinal hernia repair Lumpectomies right and left breast for cancer with left sided node dissection RUL lung resection for cancer
--- NOTE | 2024-11-20 16:02 | MHC.OFFVIS ---
Intake Visit Reasons: COPD Intake Note: pt is here for follow and is on a zpak for pneumonia Export Freight Manager Required: No Allergies codeine Allergy (Severe, Verified 11/20/24 16:34) nausea eplerenone Allergy (Severe, Verified 11/20/24 16:34) Gastrointestinal Upset Penicillins Allergy (Severe, Verified 11/20/24 16:34) Anaphylaxis sulfamethoxazole (From BACTRIM) Allergy (Severe, Verified 11/20/24 16:34) HIVES/RASH/SWELLING tamsulosin Adverse Reaction (Severe, Verified 11/20/24 16:34) cardiac Medication List - Last Reconciled 11/20/24 by Khai Sexton MD acetaminophen 1,000 mg PO Q6H PRN albuterol sulfate 90 mcg/actuation (Ventolin HFA) 2 puffs inhalation Q4-6H PRN 30 days albuterol sulfate 2.5 mg (6 mL) inhalation Q4-6H PRN 30 days alprazolam 0.5 mg PO BID PRN aspirin (Adult Aspirin Regimen) 81 mg PO DAILY azithromycin For 250 mg dose pack: take 500 mg today (day 1), then 250 mg for 4 days (days 2-5) PO carvedilol 6.25 mg PO BID clobetasol 0.05% 1 appl topical DAILY diclofenac sodium 1% 4 grams topical QID diltiazem HCl CD 180 mg PO DAILY ferrous sulfate 28 mg PO DAILY fluticasone propion-salmeterol 250-50 mcg/dose (Wixela Inhub) 1 ea inhalation BID 30 days furosemide (Lasix) 20 mg orally 2 tabs in the am and 1 tab in the afternoon; 30 days inhalational spacing device (BreatheRite MDI Spacer) As directed letrozole 2.5 mg PO DAILY mesalamine 4.8 grams PO DAILY multivitamin 1 tab PO DAILY omeprazole 20 mg PO BID potassium chloride ER 20 mEq PO ONCE sertraline mg PO DAILY tiotropium bromide (Spiriva with HandiHaler) 1 cap inhalation DAILY 30 days Do you need a note to return to daycare/school/sports/work: No HPI HPI COPD: Details: DAJA IS A CASE OF MODERATELY SEVERE OBSTRUCTIVE AIRWAY DISORDER. HE HAS BEEN DOING VERY WELL ON HER MAINTENANCE MEDICATION. HAS BEEN OUT OF SPIRIVA FOR THE LAST 1 WEEK OR SO. SHE SAY IS SPIRIVA HAS BEEN HELPING AND SHE WANTS TO CONTINUE THAT. OVER THE LAST 1 WEEK SHE WAS HAVING ACUTE RESPIRATORY SYMPTOMS AND HAS BEEN TREATED WITH A COURSE OF AZITHROMYCIN. TODAY SHE CLAIMS THAT SHE IS FEELING FINE AND BACK TO. HER USUAL BASELINE [facility] Medical History Breast cancer Essential hypertension Hypercalcemia Slow to wake up after anesthesia Hx of radiation therapy Hiatal hernia PONV (postoperative nausea and vomiting) Anemia History of kidney stones Proctitis Arthritis Anxiety Hyperparathyroidism Lung cancer GERD (gastroesophageal reflux disease) Asthma-COPD overlap syndrome Pulmonary hypertension Surgical History History of parathyroidectomy H/O cataract extraction Hx of cardiac catheterization Hx of varicose vein ligation and stripping History of lumpectomy of both breasts History of right inguinal hernia repair History of lithotripsy History of lobectomy of lung Hx of colonoscopy (~01/04/24) History of esophagogastroduodenoscopy Family History Mother Breast cancer Bone cancer Heart attack Father Abdominal aneurysm Enlarged heart Brother Lung cancer Brain cancer Social History Household Members: Family Household Members Other:: Sister Housing: House Are you a primary healthcare account manager to a significant other at home: Yes (Sister) Do you presently have visiting nurse or other home services: No Alcohol intake: former Patient Tobacco Use Status: Former Tobacco user Tobacco use type: Cigarette Years Smoked: 31 service: No Current occupational status: retired Cognitive needs: Yes (cane) Hearing needs: No Vision needs: Yes (Reading) Review of Systems Const All systems reviewed & are unremarkable except as noted in HPI and below Eyes Reports no additional complaints ENT Reports no additional complaints Card Reports no additional complaints Resp Reports as per HPI GI Reports GI cramping (off and on ) and Reports diarrhea (off and on ) Reports no additional complaints Musc Reports no additional complaints Skin/Breast Reports system reviewed and no additional complaints, except as documented Neuro Reports no additional complaints Psych Reports no additional complaints Physical Exam Const General: comfortable, no acute distress, alert and awake Orientation/consciousness: patient oriented x3 HEENT Head: Yes normal to inspection General nose exam: No nasal polyps present and No nasal discharge present Face and sinus: Yes sinuses nontender Mouth: oropharynx normal Throat: Yes posterior oropharynx normal Eyes General: appearance normal, both eyes and all related structures Neck Neck: Yes normal visual inspection, Yes no lymphadenopathy, Yes trachea midline and Yes no JVD Thyroid: Thyroid normal Chest Chest palpation & inspection: normal inspection of the chest, normal palpation of entire chest wall and no tenderness Resp Other: PERCUSSION NOTE IS RESONANT. BREATH SOUNDS. ARE DISTANT BUT EQUAL ON BOTH SIDES I DO NOT HEAR ANY WHEEZES OR RHONCHI OR CREPITATIONS. Cardio Palpation: normal PMI Rate: regular rate Rhythm: regular rhythm Heart sounds: no gallops and no murmurs GI Palpation (GI): Soft to palpation, nontender, No hepatosplenomegaly present and no masses Auscultation: normal bowel sounds Back/Spine/Pelvis Thoracic/Lumbar Spine: thoracic and lumbar spine normal to inspection Skin General skin exam: no rashes or lesions noted Neuro General: patient oriented x3 and no focal motor deficits Cranial nerves: Yes CN's II-XII intact bilaterally Extrem General: Yes normal to inspection, Yes no calf tenderness and Yes edema (CHRONIC STASIS EDEMA AROUND THE ANKLES) Psych Appearance: grossly normal and well kempt Speech and movement: Normal speech and movement present Assessment & Plan Assessment & Plan (1) Asthma-COPD overlap syndrome: Comment: SEVERE OBSTRUCTIVE LUNG DISEASE, WITH SIGNIFICANT IMPROVEMENT AFTER BRONCHODILATOR THERAPY( ASTHMA-COPD OVERLAP SYNDROME ) DOING VERY WELL WITH THE CURRENT MEDICATION ( WIXELA )AND HAS SUBJECTIVELY IMPROVED. HOWEVER SHE IS STILL GETS SHORT OF BREATH ON WALKING FAST OR CLIMBING STAIRS. HAS BEEN TREATED WITH A COURSE OF AZITHROMYCIN OVER THE LAST 1 WEEK, FOR POSSIBLE ACUTE RESPIRATORY INFECTION. SEEMS TO BE BACK TO HER BASELINE AT THIS TIME. Code(s): J44.9 - Chronic obstructive pulmonary disease, unspecified Category: Medical Plan: CONTINUE WIXELA 250-51 INHALATION B.I.D. AND SPIRIVA HANDIHALER 1 INHALATION DAILY. ALBUTEROL SOLUTION IN THE NEBULIZER Q SUPPORT 6 HOURS P.R.N. WHEN AT HOME AND ALBUTEROL HFA 2 PUFFS Q 4-6 HOURS P.R.N. FOR OUTDOORS. (2) Pulmonary hypertension: Comment: PULMONARY HYPERTENSION MOST LIKELY CAUSED BY COPD. SEEMS TO HAVE RESOLVED. SHE HAD A REPEAT ECHOCARDIOGRAM AT [facility] AND WAS TOLD THAT SHE DID NOT HAVE PULMONARY HYPERTENSION ANYMORE. Code(s): I27.20 - Pulmonary hypertension, unspecified Category: Medical Plan: NO FURTHER FOLLOW-UP FOR PULMONARY HYPERTENSION. Coding Level of Care Code Est Pt Level 3 (04567) Diagnoses Asthma-COPD overlap syndrome J44.9 Pulmonary hypertension I27.20
== END 2024-11-20 16:22 | disposition home or self-care (01) ==
LOC: HO.HPS 15:51
PROVIDERS: PCP Internal Medicine; Visit Provider Internal Medicine
DX: J44.9 Chronic obstructive pulmonary disease, unspecified (principal); I27.20 Pulmonary hypertension, unspecified
CPT/HCPCS: 99213

== ENCOUNTER → 2024-11-20 15:50 | Outpatient (BNVA) | payer MEDICARE, SELFPAY | PROVIDERS: PCP Internal Medicine; Visit Provider Internal Medicine | DX: J44.89 Other specified chronic obstructive pulmonary disease (principal); I27.20 Pulmonary hypertension, unspecified | CPT/HCPCS: 99212 ==

== ENCOUNTER 2024-11-21 10:11 | Outpatient (AMB) | payer MEDICARE, SELFPAY ==
--- OUTSIDE RECORDS SUMMARY | 2023-11-06 11:00 | XMS_ITS ---
Author Organization [facility] Address [address] [place] [address] Care Team Providers Care Business Administration Professor Name Role Phone Joseph Valencia MD Primary Care Provider Merle Lopez [phone] Encounters Encounter Location Date Provider Diagnosis [address] [address] 11/06/2023 Merle Parker Plan Of Treatment No Information Progress Notes * Eliza RINCON PDOB: (74 yo F)Acc No.[id number]:11/06/2023 Progress Notes Patient: Jaimee AHMADIELISEO Eliza Tavares Provider: Darrick Parker DPM :1950 A ge:73 Y S ex:Female Date:11/06/2023 Address:[address] [place], [place] [phone] Pcp:Joseph Valencia MD Subjective: * Chief Complaints: [...] DPM Date: 0 11/06/2023 Generated for Printi ng/Faxing/eTransmitting on: 0 11/21/2024 10:41 AM EDT
[2024-11-21 10:14] VITALS: BP 128/72; PULSE 81; O2SAT 96; BMI 27.3
--- NOTE | 2024-11-21 10:14 | A.OFFVIS_ITS ---
Vital Signs 11/21/24 10:14 Height 5 ft 4 in Weight 158 lb 15.253 oz BMI 27.3 BP 128/72 Blood Pressure Location Lt brachial Position Sitting Pulse 81 Pulse Source Pulse Oximeter Pulse Oximetry (%) 96 Oxygen Delivery Method Room Air Intake Visit Reasons: 1-2 months Intake Note: Pt presents today with OA. Allergies codeine Allergy (Severe, Verified 11/21/24 10:19) nausea eplerenone Allergy (Severe, Verified 11/21/24 10:19) Gastrointestinal Upset Penicillins Allergy (Severe, Verified 11/21/24 10:19) Anaphylaxis sulfamethoxazole (From BACTRIM) Allergy (Severe, Verified 11/21/24 10:19) HIVES/RASH/SWELLING tamsulosin Adverse Reaction (Severe, Verified 11/21/24 10:19) cardiac HPI HPI 1-2 months: Details: CHronic swelling in legs. She has erythema of legs with active psoriasis Hip pain returned last month She continues to do PT exercises learned from [facility] Medical History Breast cancer Essential hypertension Hypercalcemia Slow to wake up after anesthesia Hx of radiation therapy Hiatal hernia PONV (postoperative nausea and vomiting) Anemia History of kidney stones Proctitis Arthritis Anxiety Hyperparathyroidism Lung cancer GERD (gastroesophageal reflux disease) Asthma-COPD overlap syndrome Pulmonary hypertension Surgical History History of parathyroidectomy H/O cataract extraction Hx of cardiac catheterization Hx of varicose vein ligation and stripping History of lumpectomy of both breasts History of right inguinal hernia repair History of lithotripsy History of lobectomy of lung Hx of colonoscopy (~01/04/24) History of esophagogastroduodenoscopy Family History Mother Breast cancer Bone cancer Heart attack Father Abdominal aneurysm Enlarged heart Brother Lung cancer Brain cancer Social History Household Members: Family Household Members Other:: Sister Housing: House Are you a primary acute care nurse practitioner to a significant other at home: Yes (Sister) Do you presently have visiting nurse or other home services: No Alcohol intake: former Patient Tobacco Use Status: Former Tobacco user Tobacco use type: Cigarette Years Smoked: 31 service: No Current occupational status: retired Cognitive needs: Yes (cane) Hearing needs: No Vision needs: Yes (Reading) Physical Exam Vital Signs: Last Vital Signs Pulse 81 11/21/24 10:14 BP 128/72 11/21/24 10:14 Pulse Ox 96 11/21/24 10:14 Oxygen Delivery Method Room Air 11/21/24 10:14 BMI result Body Mass Index 27.3 Const Other: General: Comfortable Skin: bilateral barragan erythema. MSK: Trochanteric bursa tenderness pain bilateral. Normal ROM of hips Office Procedures AMB Joint Injection/Aspiration Coding 95052 - Bilateral Large Joint Procedure code (CPT) selection complete AMB Joint Injection/Aspiration Joint Injection/Aspiration Details: Bilateral trochanteric bursa Prep: site was prepped using aseptic technique Injected into each site: 40 mg of, Kenalog, with 1 mL of and 1% plain lidocaine Procedure: Informed verbal concent obtained. The patient tolerated the procedure well. Postprocedure protocol was discussed with patient. Coding 63213 - Bilateral Large Joint Procedure code (CPT) selection complete Office Meds lidocaine (PF) 10 mg/mL (1 %) injection solution Performing Provider: Jacobo Mtz MD Performing Location: [facility] [place] [place] [facility] Administered by: Jacobo Mtz MD on 11/21/24 10:43 Dose Route Admin Location Dispensed Lot Number Expiration Date [facility] Molded Candles Wicker 10 mg Infiltration 2 mL [id number] 10/11/26 56740-380-08 ANN NI KA Total Dispensed Waste 2 mL 50 % Kenalog 40 mg/mL suspension for injection Performing Provider: Jacobo Mtz MD Performing Location: [facility] [place] [place] [facility] Administered by: Jacobo Mtz MD on 11/21/24 10:43 Dose Route Admin Location Dispensed Lot Number Expiration Date [facility] Molded Candles Wicker 40 mg intrabursal 1 mL [id number] 12/11/25 [address]-5 [employer]A L [employer] Total Dispensed Waste 1 mL 0 % lidocaine (PF) 10 mg/mL (1 %) injection solution Performing Provider: Jacobo Mtz MD Performing Location: [facility] [place] [place] [facility] Administered by: Jacobo Mtz MD on 11/21/24 10:43 Dose Route Admin Location Dispensed Lot Number Expiration Date [facility] Molded Candles Wicker 10 mg Infiltration 2 mL [id number] 10/11/26 75333-541-27 ANN ARNETT Total Dispensed Waste 2 mL 50 % Kenalog 40 mg/mL suspension for injection Performing Provider: Jacobo Mtz MD Performing Location: [facility] [place] [place] [facility] Administered by: Jacobo Mtz MD on 11/21/24 10:43 Dose Route Admin Location Dispensed Lot Number Expiration Date [facility] Molded Candles Wicker 40 mg intrabursal 1 mL [id number] 10/11/26 [address]-3 [employer] Total Dispensed Waste 1 mL 0 % Results Reviewed Results Reviewed: Labs reviewed in expanse. Assessment & Plan Assessment & Plan (1) Greater trochanteric bursitis of both hips: Comment: Recurrent. Code(s): M70.61 - Trochanteric bursitis, right hip; M70.62 - Trochanteric bursitis, left hip Category: Medical Plan: Patient received bilateral trochanteric bursa cortisone injections RTC 3 months (2) Cellulitis: Comment: Recurrent in lower extremities Code(s): L03.90 - Cellulitis, unspecified Category: Medical Plan: Doxycycline 100 mg twice a day for 5 days. She will call PCP's office if symptoms do not resolve with course of antibiotic treatment. Orders: Orders AMB Joint Injection/Aspiration Today M70.61 - Trochanteric bursitis, right hip, M70.62 - Trochanteric bursitis, left hip AMB Joint Injection/Aspiration Today M70.61 - Trochanteric bursitis, right hip, M70.62 - Trochanteric bursitis, left hip Medications: New doxycycline hyclate 100 mg PO Q12H 10 caps 0RF 5 days Coding Level of Care Code Est Pt Level 4 (78786) Complex EM visit Add On G2211 Diagnoses Greater trochanteric bursitis of both hips M70.61; M70.62 Cellulitis L03.90 CPT Codes Coding - - Bilateral Large Joint: 90758 - Bilateral Large Joint ([id number]) Coding - 31929 - Bilateral Large Joint: 92841 - Bilateral Large Joint ([id number])
--- OUTSIDE RECORDS SUMMARY | 2024-11-21 10:41 | XMS_ITS | Patient Health Record ---
Author Organization George Dias III, MD Address [address] [place] [address] Care Team Providers Care Livestock Broker Name Role Phone Joseph Valencia MD Primary Care Provider George Ren Unavailable [phone] Allergies Allergen (clinical drug ingredient) Drug/Non Drug [...] Problem Status W/U Status Risk Notes Problem 1121679 Former smoker (Z87.891) Active confirmed She has been abstinent since 1998. She has a plan to prevent relapse in times of stress and illness. Problem Fibromyalgia (910265090) Fibromyalgia (M79.7) Active confirmed Her symptoms ar e stable and unchanged. Problem 642734355 Overweight (E66.3) Active confirmed This problem duron s resolved and will be removed from her problem list Problem 79730908 Allergy to sulfa drugs (Z88.2) Active confirmed Problem 005816315 GERD without esophagitis (K21.9) Active confirmed Her reflux symptoms are well controlled with tmxv-zsi-tlliifi medication. Problem 17276683 Essential hypertension (I10) Active confirmed Her blood pressure is 134/71. She is stable and no change in her regimen was needed. I recommended continued sodium restriction. Problem 22141532 Penicillin allergy (Z88.0) Active confirmed Problem 397450537281839 Hematochezia (K92.1) Active confirmed #4 days. She isn't visible streaks of red blood in her stool. She will be referred to her gastroenterologi st for colonoscopy. 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 Problem 58814797743515842 Adenocarcinoma of right lung (C34.91) Active confirmed There was no sign of her recurrent cervical new primary today. Problem 051058778 Renal cyst (N28.1) Active confirmed Diagnosis will be followed. 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 She has begun on anastrozole. She will have a radiation therapy consultation. Because of diffuse aches and pains. We have temporarily stopped anastrozole. Problem Psoriatic arthritis (L40.50) Active confirmed She has [...] Date Provider Diagnosis George Dias III, MD [address] [place] [address] [place] [address] 03/07/2024 George Dias Ductal carcinoma in situ [...] Her reflux symptoms are well controlled with vbow-lld-efxrbep medication. 03/07/2024 Former smoker (ICD-10 - Z87.891) [...] Insured Coverage Start Date Coverage End Date [address] [place] [phone] [id number] DAJA POWELL Self - patient is the [...] l right kidney former smoker since 1998 [id number] son [id number] invasive ductal carcinoma left breast April [id number] DCIS right breast, surgery and RT Breast Cancer in 2021, High Blood Pressu re, Ulcerated Colitis Surgical History Surgery Date(Month/Year) Breast cancer surgery in 2021 2021 Lumpectomy and sentinel node biopsy left breast, [facility], Dr. Mixon 04/2021 multiple negative endometrial biopsies Right breast lumpectomy with 2 needle lo calization (DP) 03/2019 36 weeks radiation . Left breast 11/1998 1 major vein removed- Dr. Lo 2 major veins removed right leg Lumpectomy and sentinel nodes left breas t 1998 right upper lobectomy, stage I adenocarc inoma of, Dr. Scherer 1998
--- OUTSIDE RECORDS SUMMARY | 2024-11-21 10:41 | XMS_ITS | Clinical Summary ---
Author Organization [facility] Address [address] [facility] [place] [address] [place] [address] Phone Care Team Providers Care Automation Engineer Name Role Phone Joseph Valencia MD Primary Care Provider [phone] Allergies Active Allergy Reactions Criticality Noted Date [...] Refill [facility] [address] [place], [place] [address] Carlos Manuel [...] [facility] [address] [place] [address] Carlos Manuel Wagoner MD [address] [facility] [address] [place] [address] Health Maintenance Due Date Last [...] patient's age to complete this topic Insurance [facility] Care Teams Automation Engineer Relationship Specialty Start Date End Date Joseph Valencia MD [address] [place] [address] [address] [place], [place] PCP - General Internal Medicine 08/02/23
--- OUTSIDE RECORDS SUMMARY | 2024-11-21 10:42 | XMS_ITS | Patient Health Record ---
Author Organization [facility] Address [address] [place] [address] Care Team Providers Care Bakelite Molder Name Role Phone APOORVA HILL Primary Care Provider George Valente Unavailable [phone] George Dias MD Unavailable Unavailable Allergies Allergen (clinical drug ingredient) Drug/Non Drug Allergy documented on EMR Reaction Allergy Type Onset Date Status codeine Codeine Unknown Drug Allergy Active Substance with sulfonamide structure and antibacterial mechanism of action (substance) Sulfa (uncoded) Unknown Allergy Active Penicillin (uncoded) Unknown Allergy Active Results Component Value Reference Range Notes Pathology Reviewed date:01/17/2024 02:55:38 PM Interpretation: Performing Lab:[facility], [address] [place] [phone] Notes/Report: Reason For Referral No Information Medications Medication SIG (Take, Route, Frequency, Duration) Notes Start Date End Date Status Tylenol Extra Strength Active Carvedilol 3.125 MG PLEASE SEE ATTACHED FOR DETAILED DIRECTIONS Oral for 90 Active [employer] Active Letrozole 2.5 MG Oral for 90 [...] Problem Status W/U Status Risk Notes Problem 43024014 Epigastric abdominal pain (R10.13) Active confirmed Problem Screening for malignant neoplasm of colon (824848532) Encounter for screening for malignant neoplasm of colon (Z12.11) Active confirmed Problem History of polyp of colon (situation) (337220067) Personal history of colonic polyps (Z86.010) Active confirmed Problem Diverticular disease of colon (417017418) Diverticulosis of large intestine without perforation or abscess without bleeding (K57.30) Active confirmed Problem 192757799 Gastroesophageal reflux disease, esophagitis presence not specified (K21.9) Active confirmed Problem 38506439 Rectal bleed (K62.5) Active confirmed Problem Benign neoplasm of colon (52266325) 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 Problem Ulcerative colitis (68110383) Ulcerative colitis (K51.90) Active confirmed Problem Proctitis (5932038) 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) Active confirmed Problem Diverticulosis of colon (670619688) Diverticulosis of colon (K57.30) Active confirmed Vital Signs Temperature 98.6 degrees Fahrenheit 06/11/2024 Blood pressure diastolic 77 mm Hg 10/15/2024 Height 65 in 10/15/2024 Blood pressure systolic 111 mm Hg 10/15/2024 Weight 155 lbs 10/15/2024 BMI 25.79 kg/m2 10/15/2024 Procedures Procedure Date Ordered Date Performed Result Body Sit e COLONOSCOPY 10/15/2024 N/A Encounters Encounter Location Date Provider Diagnosis [facility] Outpatient [address] [place] [id number] 01/04/2024 George Nguyen Colon cancer screeni ng Z12.11 ; Colon polyps K63.5 ; Ulcerative colitis K51.90 and Diverticulosis of large intestine without perforation or abscess without bleeding K57.30 [facility] [address] [place] [address] 06/11/2024 George Nguyen Ulcerative colitis K51.90 ; Encounter for screening for malignant neoplasm of colon Z12.11 and Personal history of colonic polyps Z86.010 [facility] [address] [place] [address] 10/15/2024 George Nguyen Rectal bleed K62.5 ; Ulcerative colitis K51.90 ; Gastroesophageal reflux disease, esophagitis presence not specified K21.9 ; Tubulovillous adenoma of colon K63.5 and Encounter for screening for malignant neoplasm of colon Z12.11 [facility] [address] [place] [address] 12/31/2023 George Nguyen [facility] [address] [place] [address] 01/03/2024 George Nguyen [facility] [address] [place] [address] 01/05/2024 George Nguyen [facility] [address] [place] [address] 02/02/2024 George Carey [facility] [address] [place] [address] 02/06/2024 [facility] [address] [place] [address] 02/11/2024 [facility] [address] [place] [address] 03/05/2024 [facility] [address] [place] [address] 04/02/2024 George Nguyen [facility] [address] [place] [address] 06/17/2024 [facility] [address] [place] [address] [address] 10/16/2024 George Nguyen Assessments Encounter Date Diagnosis [...] again for allowing me to participate in Djaa's care. I shall continue to keep you [...] Provider Name:George Nguyen , 12/01/2024 02:50:00 PM, [address] [place] [address] , [place], [place], [phone], Insurance Providers Payer Name Payer Address Payer Phone Subscriber Number Group Number Insured Name Patient Relationship to Insured Coverage Start Date Coverage End Date [facility] [address] [place] [phone] [id number] DAJA YOUNG Self - patient is the insured Medical (General) History Medical History History ICD Code Lung cancer - 1998--Removed upper right lobe Breast cancer-1998 Left--surgery and XRT ; and 03/2019 Right--surgery and XRT GERD Overactive parathyroid Anxiety Arthritis Colonoscopy in 2004 was neg. except for a hyperplastic polyp Denies OH,DM,CVA,renal disease COPD Colonscopy in 01/2020 with a [...] Surgery Date(Month/Year) Parathyroid surgery scheduiled for at [facility] Vein surgery left leg - Dr. Aponte 01/2023 Lasik surgery on both eyes Cateracts left and right -Dr. Newton Right inguinal hernia repair Lumpectomies right and left breast for cancer with left sided node dissection RUL lung resection for cancer
== END 2024-11-21 11:00 | disposition home or self-care (01) ==
LOC: HO.RHES 10:12
PROVIDERS: PCP Internal Medicine; Visit Provider Internal Medicine Rheumatology
DX: M70.61 Trochanteric bursitis, right hip (principal); M70.62 Trochanteric bursitis, left hip; L03.90 Cellulitis, unspecified
CPT/HCPCS: 20610; 99213

== ENCOUNTER → 2024-11-21 10:11 | Outpatient (BNVA) | payer MEDICARE, SELFPAY | PROVIDERS: PCP Internal Medicine; Visit Provider Internal Medicine Rheumatology | DX: M70.61 Trochanteric bursitis, right hip (principal); M70.62 Trochanteric bursitis, left hip; L40.9 Psoriasis, unspecified; L03.115 Cellulitis of right lower limb; L03.116 Cellulitis of left lower limb | CPT/HCPCS: 20610; 99212; J2003; J3300 ==

== ENCOUNTER 2024-12-01 12:34 | Day surgery (SDC) | payer MEDICARE, SELFPAY ==
--- OUTSIDE RECORDS SUMMARY | 2024-10-21 16:34 | XMS_ITS | Clinical Summary ---
Author Organization [facility] Address [address] [facility] [address] [place] [address] Phone Care Team Providers Care Is Consultant Name Role Phone Joseph Valencia MD Primary Care Provider [phone] Allergies Active Allergy Reactions Criticality Noted Date [...] on 08/11/2024 doxycycline (VIBRA-TABS) 100 MG tablet 4 Active mesalamine (CANASA) 1000 MG suppository UNWRAP AND INSERT 1 SUPPOSITORY AT BEDTIME RECTALLY EVERY NIGHT FOR 30 DAY(S) 4 Active aMILoride (MIDAMOR) 5 MG tablet Take 1 tablet (5 mg total) by mouth 1 (one) time each day 90 tablet 4 Active dilTIAZem CD (CARDIZEM CD) 180 MG 24 hr capsule Take 180 mg by mouth 1 (one) time each day 5 Active carvedilol (COREG) 3.125 MG tablet PLEASE SEE ATTACHED FOR DETAILED DIRECTIONS 360 tablet 1 5 Active potassium chloride (MICRO-K) 10 MEQ CR capsule TAKE 2 CAPSULES (20 MEQ TOTAL) BY MOUTH 1 (ONE) TIME EACH DAY PT TAKEN IT 2 TIMES A DAY 180 capsule 5 12/15/19 25 Active Active Problems Problem Noted Date Diagnosed Date Essential (primary) hypertension 10/29/2023 Personal history of kidney stones 10/29/2023 Other secondary hypertension 08/02/2023 Encounters Date Type Department Care Team Description 09/14/2024 [facility]ill [facility] [address] [place] [address] Carlos Manuel Wagoner MD 08/19/2024 Refill [facility] [address] [address] Kiran Dickerson MD 08/19/2024 Refill [facility] [address] [address] Alice Milnerxitaqueria 08/18/2024 Refill [facility] [address] [address] Kiran Dickerson MD 08/18/2024 Refill [facility] [address] [address] Kiran Dickerson MD 08/17/2024 Refill [facility] [address] [address] Carlos Manuel Wagoner MD 08/15/2024 Refill [facility] [address] [address] Carlos Manuel Wagoner MD 08/11/2024 3:15 PM EDT Office Visit [facility] [address] [place] [address] Carlos Manuel Wagoner MD Personal history of kidney stones (Primary Dx) 07/29/2024 Refill [facility] [address] [address] Carlos Manuel Wagoner MD 07/27/2024 Refill [facility] [address] [address] Carlos Manuel Wagoner MD from Last 3 [...] Care Team (Late st Contact Info) Description 08/10/2025 3:15 PM EDT Office [facility] [address] [place] [address] Carlos Manuel Wagoner MD [address] [facility] [address] [place] [address] Health Maintenance Due Date Last Done Comments Breast Cancer Screening 1950 Colorectal Cancer Screening: Annual FOBT 1998 Colorectal Cancer Screening: Colonoscopy 1998 Colorectal Cancer Screening: Sigmoidoscopy 1998 Pneumococcal Vaccine: 50+ Years (3 of 3 - PCV20 or PCV21) 02/01/2015 12/07/2014, 12/05/2006 Influenza Vaccine (Season Ended) 2025 02/26/2015, 03/06/2011 Hepatitis B Vaccine Aged Out No longe r eligible based on patient's age to complete this topic [place] [address] Care Teams Is Consultant Relationship Specialty Start Date End Date Joseph Valencia MD [address] [place] [address] [address] [place], [place] PCP - General Internal Medicine 08/02/23
[2024-11-27 14:46] VITALS: BMI 25.8
--- NOTE | 2024-11-28 08:37 | HO.ANESPROP2 ---
Documented by User: Viji Chopra NP 11/28/24 08:43 HPI - Anesthesia Eval Consult details Narrative: 74yo F for Colonoscopy Cardiac optimized. Follows [facility] Cardiology for hypertension, pulmonary hypertension, COPD, mild aortic stenosis, [id number]-[id number] mitral regurgitation. Stable at 10/2024 office visit - chronic LE edema, resolution of atypical CP PMFSH Active Problems Active Problems: All Active Problems Preop cardiovascular exam (Acute) Ureteropelvic junction (UPJ) obstruction (Acute) Kyphosis (Acute) Osteoarthritis of knees, bilateral (Acute) Bilateral knee pain (Acute) Osteoporosis (Acute) Right elbow pain (Acute) Greater trochanteric bursitis of both hips (Acute) Edema (Acute) Chest discomfort (Acute) Anterior mediastinal lymphadenopathy (Acute) Nephrolithiasis (Acute) Non-rheumatic mitral regurgitation (Acute) Mitral annular calcification (Acute) Heart palpitations (Acute) Nonrheumatic aortic (valve) stenosis (Acute) Varicose veins of left lower extremity with inflammation (Acute) Invasive ductal carcinoma of left breast (Acute) Abnormal ultrasound of breast (Acute) Abnormal mammogram of left breast (Acute) History of left breast cancer (Acute) Breast cancer, right (Acute) Breast cancer (Acute) Essential hypertension (Acute) Hypercalcemia (Acute) Asthma-COPD overlap syndrome (Acute) Pulmonary hypertension (Chronic) Past Medical History Medical History Non-rheumatic mitral regurgitation Breast cancer Essential hypertension Hypercalcemia Slow to wake up after anesthesia Hx of radiation therapy Hiatal hernia PONV (postoperative nausea and vomiting) Anemia History of kidney stones Proctitis Arthritis Anxiety Hyperparathyroidism Lung cancer GERD (gastroesophageal reflux disease) Asthma-COPD overlap syndrome Pulmonary hypertension Family History Family History Mother Breast cancer Bone cancer Heart attack Father Abdominal aneurysm Enlarged heart Brother Lung cancer Brain cancer Family history of problems with anesthesia: No Surgical History Surgical History History of surgery on lower extremity History of parathyroidectomy H/O cataract extraction Hx of cardiac catheterization Hx of varicose vein ligation and stripping History of lumpectomy of both breasts History of right inguinal hernia repair History of lithotripsy History of lobectomy of lung Hx of colonoscopy (~01/04/24) History of esophagogastroduodenoscopy History of Problems with Anesthesia: No (ponv and delayed emergence ) Social History Social History Household Members: Family Household Members Other:: son and disabled sister Housing: House Are you a primary overnight caregiver to a significant other at home: Yes Do you presently have visiting nurse or other home services: Yes Alcohol intake: former Patient Tobacco Use Status: Former Tobacco user Tobacco use type: Cigarette Years Smoked: 31 Have you been hit, kicked, punched, or otherwise hurt by someone within the past year? If so, by whom?: No Are you DNR?: No Advance Directives: No Advance Directives Information Provided: Yes Poor oral hygiene: Yes service: No Current occupational status: retired Cognitive needs: Yes (cane) Hearing needs: No Vision needs: Yes (Reading) Meds Allergies Allergy/AdvReac Type Severity Reaction Status Date / Time codeine Allergy Severe nausea Verified 12/01/24 12:40 eplerenone Allergy Severe Gastrointestinal Verified 12/01/24 12:40 Upset Penicillins Allergy Severe Anaphylaxis Verified 12/01/24 12:40 sulfamethoxazole (From Allergy Severe HIVES/RASH/ Verified 12/01/24 12:40 BACTRIM) SWELLING tamsulosin AdvReac Severe cardiac Verified 12/01/24 12:40 Home Medications ?Medication ?Instructions ?Recorded ?Confirmed ?Last Taken ?Type aspirin 81 mg tablet,delayed 81 mg PO DAILY 10/06/20 11/27/24 12/31/23 History release (Adult Aspirin Regimen) multivitamin 1 tab PO DAILY 10/06/20 11/27/24 09/27/23 History omeprazole 20 mg capsule,delayed 20 mg PO BID 10/06/20 11/27/24 12/01/24 History release clobetasol 0.05 % topical ointment 1 appl topical DAILY 12/06/20 11/27/24 Unknown History acetaminophen 500 mg tablet 1,000 mg PO Q6H PRN Pain 05/03/21 11/27/24 09/27/23 History ferrous sulfate 28 mg iron tablet 28 mg PO DAILY 05/03/21 11/27/24 12/31/23 History letrozole 2.5 mg tablet 2.5 mg PO DAILY 08/09/21 11/27/24 09/27/23 History carvedilol 3.125 mg tablet 6.25 mg PO BID 09/18/23 11/27/24 12/01/24 History mesalamine 1.2 gram tablet,delayed 4.8 g PO DAILY 03/27/24 11/27/24 Unknown History release sertraline 25 mg tablet 25 mg PO DAILY 09/16/24 11/27/24 Unknown History potassium chloride 10 mEq 20 meq PO DAILY 11/10/24 11/27/24 Unknown History capsule,extended release Exam Height,Weight and Vital Signs: Height 5 ft 5 in Weight 70.307 kg Narrative Narrative: GA cardiolite stress test 08/2024 Impression: 1. Myocardial perfusion imaging study shows no clear evidence of ischemia or infarction. 2. Gated LVEF is 65% during stress and 72% during rest. 3. Transient ischemic dilatation not present. ECHO 05/2024 Conclusions: - The left ventricular systolic function is normal. The calculated ejection fraction is 66% by biplane method. - Aortic valve sclerosis but no significant stenosis. - Severe mitral annular calcification with evidence of stenosis. Mitral valve area by VTI 1.5 sq cm. Mean gradient 6 mm Hg at 77/Min. EKG 03/2024 Details: Today , read by me, sinus rhythm with frequent PACs, nonspecific ST abnormality, rate 94, QTC 450 milliseconds Assessment and Plan Assessment Anesthesia Assessment: Chart Reviewed Final Anesthetic Review Family History of Problems with Anesthesia: No History of Problems with Anesthesia: No (ponv and delayed emergence ) Documented by User: Bridgette Robles MD 12/01/24 14:16 [facility] Past Medical History Medical History Non-rheumatic mitral regurgitation Breast cancer Essential hypertension Hypercalcemia Slow to wake up after anesthesia Hx of radiation therapy Hiatal hernia PONV (postoperative nausea and vomiting) Anemia History of kidney stones Proctitis Arthritis Anxiety Hyperparathyroidism Lung cancer GERD (gastroesophageal reflux disease) Asthma-COPD overlap syndrome Pulmonary hypertension Family History Family History Mother Breast cancer Bone cancer Heart attack Father Abdominal aneurysm Enlarged heart Brother Lung cancer Brain cancer Surgical History Surgical History History of surgery on lower extremity History of parathyroidectomy H/O cataract extraction Hx of cardiac catheterization Hx of varicose vein ligation and stripping History of lumpectomy of both breasts History of right inguinal hernia repair History of lithotripsy History of lobectomy of lung Hx of colonoscopy (~01/04/24) History of esophagogastroduodenoscopy Social History Social History Household Members: Family Household Members Other:: son and disabled sister Housing: House Are you a primary overnight caregiver to a significant other at home: Yes Do you presently have visiting nurse or other home services: Yes Alcohol intake: former Patient Tobacco Use Status: Former Tobacco user Tobacco use type: Cigarette Years Smoked: 31 Have you been hit, kicked, punched, or otherwise hurt by someone within the past year? If so, by whom?: No Are you DNR?: No Advance Directives: No Advance Directives Information Provided: Yes Poor oral hygiene: Yes service: No Current occupational status: retired Cognitive needs: Yes (cane) Hearing needs: No Vision needs: Yes (Reading) Meds Allergies Allergy/AdvReac Type Severity Reaction Status Date / Time codeine Allergy Severe nausea Verified 12/01/24 12:40 eplerenone Allergy Severe Gastrointestinal Verified 12/01/24 12:40 Upset Penicillins Allergy Severe Anaphylaxis Verified 12/01/24 12:40 sulfamethoxazole (From Allergy Severe HIVES/RASH/ Verified 12/01/24 12:40 BACTRIM) SWELLING tamsulosin AdvReac Severe cardiac Verified 12/01/24 12:40 Home Medications ?Medication ?Instructions ?Recorded ?Confirmed ?Last Taken ?Type aspirin 81 mg tablet,delayed 81 mg PO DAILY 10/06/20 11/27/24 12/31/23 History release (Adult Aspirin Regimen) multivitamin 1 tab PO DAILY 10/06/20 11/27/24 09/27/23 History omeprazole 20 mg capsule,delayed 20 mg PO BID 10/06/20 11/27/2425 History release clobetasol 0.05 % topical ointment 1 appl topical DAILY 12/06/20 11/27/24 Unknown History acetaminophen 500 mg tablet 1,000 mg PO Q6H PRN Pain 05/03/21 11/27/24 09/27/23 History ferrous sulfate 28 mg iron tablet 28 mg PO DAILY 05/03/21 11/27/24 12/31/23 History letrozole 2.5 mg tablet 2.5 mg PO DAILY 08/09/21 11/27/24 09/27/23 History carvedilol 3.125 mg tablet 6.25 mg PO BID 09/18/23 11/27/24 12/01/24 History mesalamine 1.2 gram tablet,delayed 4.8 g PO DAILY 03/27/24 11/27/24 Unknown History release sertraline 25 mg tablet 25 mg PO DAILY 09/16/24 11/27/24 Unknown History potassium chloride 10 mEq 20 meq PO DAILY 11/10/24 11/27/24 Unknown History capsule,extended release Exam Airway Mallampati Class: II TM Dist: >3cm Neck ROM: Full Denture: Upper Heart: rrr Lungs: cta Assessment and Plan Assessment Anesthesia Assessment: Anesthesia Plan Discussed Final Anesthetic Review NPO: Yes ASA Class: III Final Preanesthetic Review: No Changes in Pt Med Stat, Meds/Allgs Chart Reviewed and Consent Obtained/Reviewed Patient Risk: Low Procedure Risk: Low Anesthetic Plan Anesthetic Plan: MAC: Disposition: Standard PACU
[2024-12-01 12:39] VITALS: BMI 25.5
[2024-12-01] MEDS: Lactated Ringers 1,000 ML 50 ML IVCONT (12:41)
[2024-12-01 13:17] VITALS: BP 149/63; PULSE 85; RESP 18; TEMP 36.6; O2SAT 99
[2024-12-01 15:37] VITALS: BP 127/45; PULSE 84; RESP 16; TEMP 36.1; O2SAT 96
--- NOTE | 2024-12-01 15:49 | PM.OP ---
Brief Operative Note Date of Service: 12/01/24 Pre-op diagnosis: Screening, Proctitis, History of polyps Post-op diagnosis: other (Colon polyps, Active Proctitis) Procedure: Colonoscopy to the cecum with hot and cold snare polypectomies, and biopsies Surgeon: George Nguyen MD Anesthesia: MAC Was an Community Health Advisor used for this Procedure?: No Estimated blood loss (mL): 2.0 Pathology: other (A. Polyp along Ileocecal valve B. Biopsies of ICV C. Ascending colon biopsies D. Polyps at 60cm E. Polyp at 30cm F. Biopsies of Rectum) Condition: stable Disposition: PACU
[2024-12-01 15:52] VITALS: BP 149/50; PULSE 77; RESP 16; TEMP 36.1; O2SAT 98
--- NOTE | 2024-12-02 02:06 | OP_ITS ---
DATE OF SERVICE: 12/01/2024 SURGEON: George Nguyen MD INDICATIONS: The patient presents for followup of personal history of colon polyps, colorectal cancer screening, history of proctitis, and ongoing issues with hematochezia. Full consent has been obtained from her for this, including risks of bleeding and perforation. PREOPERATIVE DIAGNOSIS: POSTOPERATIVE DIAGNOSIS: Colorectal cancer screening, hematochezia, colon polyps, active proctitis, diverticulosis, internal hemorrhoids. PROCEDURE PERFORMED: Colonoscopy to the cecum with hot snare polypectomies and biopsies. ESTIMATED BLOOD LOSS: COMPLICATIONS: ANESTHESIA: Medication used, monitored anesthesia care. ASSISTANTS: SPECIMENS: PREOPERATIVE DIAGNOSES: Personal history of colon polyps, colorectal cancer screening, history of proctitis, hematochezia. DESCRIPTION OF PROCEDURE: The patient was placed in the left lateral decubitus position. The digital rectal exam revealed no abnormality. There was no perianal disease. The Olympus video pediatric colonoscope was entered into the rectum and advanced easily to the cecum. As the scope was being advanced, the patient's active proctitis was noted. Once in the cecum, I did identify cecal pouch with appendiceal orifice and transillumination of light deep in the right lower quadrant. The entire cecum appeared normal. The scope was then slowly withdrawn assessing all mucosal surfaces carefully. Preparation was excellent. On the superior portion of the ileocecal valve was an area of what appeared to be adenomatous polypoid tissue which was removed with hot snare polypectomy in piecemeal fashion. The polypectomy site appeared clean, without any sign of residual polyp nor bleeding. The area adjacent to the polypoid area appeared to be at least edematous, but I was not sure if this represented further adenomatous tissue. Therefore only biopsies were obtained from that. Those were put in a separate jar. The ascending colon did appear somewhat edematous and erythematous. There was some minimal friability. Biopsies were obtained as well to rule out any underlying colitis. There was no evidence of any ulcerations nor mass. At 60 cm, were 2 polyps. One was approximately 5 or 6 mm in diameter and was removed by cold snare polypectomy. The other polyp was somewhat larger at about 8 to 10 mm and was removed by hot snare polypectomy. The polypectomy site appeared clean, without any sign of residual polyp nor bleeding from the hot snare polypectomy site. The other polypectomy site had some minimal bleeding, but no residual polyp. Both polyps were recovered by suction and placed in the same container. At 30 cm was an approximately 8 mm polyp which was removed by hot snare polypectomy and recovered by suction. The polypectomy site appeared clean, without any sign of residual polyp nor bleeding. There was a moderate amount of sigmoid diverticulosis. In the rectum, there was clearly active proctitis involving at least the distal half of the rectum. The scope was retroflexed visualizing some internal hemorrhoids, but no other pathology. The scope was straightened. Biopsies were obtained from the rectum. The scope was withdrawn from the patient. She tolerated the procedure well and was returned to the recovery area in stable condition. IMPRESSION: 1. Colon polyps. 2. Proctitis. 3. Diverticulosis. 4. Internal hemorrhoids. PLAN: The results of the pathology will be checked. She has been advised to stay off all aspirin and NSAIDs for at least 2 weeks, but I did advise her to speak with her early morning babysitter about staying off aspirin long-term. As far as I can see there is no definitive indication for needing to be on aspirin, such as previous [place], stroke, or coronary artery stent placement. I did advise her strictly to use Tylenol and avoid NSAIDs. She is currently using the mesalamine at 3.6 g daily and I have instructed her to increase it to 4.8 g daily for the maximal dose. I have also instructed her to begin using mesalamine suppositories nightly again and I will send a prescription for that. I did advise her that if she has difficulty using them due to her arthritis and decreased mobility, she should let me know that. I also advised her to let me know if she cannot afford it. Depending upon her clinical course, we may need her to be on a short course of prednisone or even consider one of the biologic agents if her symptoms of bleeding persist. She reports that she is not having any diarrhea nor bleeding by itself, but has about 2 formed stools daily with bleeding every time. She did have a hemoglobin just a few weeks ago that was normal. She does take iron daily and I did advise her to continue that as well. I will see her in the office for followup and did advise her to contact me sooner if she has any problems or questions. This has all been discussed with her son. MD DOUGIE Qureshi/JUAN RAMON / [phone] JAROD
== END 2024-12-01 16:23 | disposition home or self-care (01) ==
PROVIDERS: PCP Internal Medicine; Visit Provider Internal Medicine
PROC: 0DJD8ZZ Inspection of Lower Intestinal Tract, Via Natural or Artificial Opening Endoscopic (ICD-10-PCS; CPT 45378; principal; 2024-12-01 12:40)
DX: Z12.11 Encounter for screening for malignant neoplasm of colon (principal); Z86.0101 Personal history of adenomatous and serrated colon polyps; D12.0 Benign neoplasm of cecum; D12.4 Benign neoplasm of descending colon; D12.5 Benign neoplasm of sigmoid colon; K57.30 Diverticulosis of large intestine without perforation or abscess without bleeding; K51.90 Ulcerative colitis, unspecified, without complications; K92.1 Melena; K62.89 Other specified diseases of anus and rectum; K21.9 Gastro-esophageal reflux disease without esophagitis; E21.3 Hyperparathyroidism, unspecified; Z85.118 Personal history of other malignant neoplasm of bronchus and lung; Z85.3 Personal history of malignant neoplasm of breast; Z92.3 Personal history of irradiation; M19.90 Unspecified osteoarthritis, unspecified site; Z79.811 Long term (current) use of aromatase inhibitors; F41.9 Anxiety disorder, unspecified; J44.9 Chronic obstructive pulmonary disease, unspecified; Z79.899 Other long term (current) drug therapy; Z98.890 Other specified postprocedural states; Z87.891 Personal history of nicotine dependence
CPT/HCPCS: 45385; 45380; 88305; J2003; J2704

== ENCOUNTER → 2024-12-02 13:00 | Outpatient (REF) | payer MEDICARE, SELFPAY ==
--- OUTSIDE RECORDS SUMMARY | 2023-09-19 11:00 | XMS_ITS | Continuity of Care Document ---
Author Organization [facility] Address [address] [place] [address] Phone Care Team Providers Care Military Analyst Name Role Phone Yasmany KEY, GARDENIA, [...] Telemedicine [place] & [place] [facility], [address] [place] [address] [address], [place], [id number], [place] tel:[phone] R - [place] - [place] Varicose veins of bilateral lower extremities with other complicationsL ocalized edemaCramp and spasmPruritus, unspecifiedEss ential (primary) hypertension 4 Yasmany KEY, GARDENIA, CROW Vazquez. [address], [address], [facility], [id number] , [place]. tel:[phone] Offic Cons New/estab Mod-hi 60- [place] & [place] [facility], [address] [place] [address] [address], [place], [id number], tel:[phone] CVR - [place] - [place] Essential (primary) hypertensionPr uritus, unspecifiedPai n in left legCramp and spasmLocalized edemaVaricose veins of bilateral lower extremities with other complicationsP ain in right lower legPain in left lower legPain in right leg 4 Yasmany KEY RVT, CROW Vazquez. [address] [place] [address], [facility] [place] [place], [id number] , [place]. tel:[phone] [facility], [address] [place] [address] [address] 1000[facility] [address], [id number], tel:[phone] CVR - [facility] Varicose veins of bilateral lower extremities with pain 4 Yasmany KEY RVT, CROW Vazquez. [address] [place] [address], Lalit [place]is [place], [id number] , [place]. tel:[phone] Referring Provider: George Jade MD, RVT, CROW, [address] [place] [address], [place], [address] . tel:[phone] Family History Family Member Type Diagnosis Age At Onset No Information Payers Payer name Insurance type Covered constitution party ID Grayson jacome(s) [employer] [place] [employer] [place] [id number] Social History Type Description Quantity Date Captured [...] Information Instructions Date Instruction Additional Infor mation Patient education booklet given Related to Varicose [...]
--- OUTSIDE RECORDS SUMMARY | 2023-11-06 11:00 | XMS_ITS ---
Author Organization [facility] Address [address] [place] [address] Care Team Providers Care Contact Center Manager Name Role Phone Joseph Valencia MD Primary Care Provider Merle Lopez [phone] Encounters Encounter Location Date Provider Diagnosis [address] [address] 11/06/2023 Merle Parker Plan Of Treatment No Information Progress Notes * Eliza RINCON PDOB: (74 yo F)Acc No.[id number]:11/06/2023 Progress Notes Patient: Jaimee AHMADIELISEO Eliza Tavares Provider: Darrick Parker DPM :1950 A ge:73 Y S ex:Female Date:11/06/2023 Address:[address] [place], [place] [phone] Pcp:Joseph Valencia MD Subjective: * Chief Complaints: [...] 0 11/06/2023 Generated for Printi ng/Faxing/eTransmitting on: 12/02/2024 02:04 PM EDT
--- OUTSIDE RECORDS SUMMARY | 2024-09-09 12:00 | XMS_ITS ---
Author Organization George Dias III, MD Address [address] [place] [address] Care Team Providers Care Estate Tax Examiner Name Role Phone Joseph Valencia MD Primary Care Provider George Ren Unavailable [phone] Allergies Allergen (clinical drug ingredient) Drug/Non Drug [...] Date Provider Diagnosis George Dias III, MD [address] [place] [address] [place] [address] 09/09/2024 George Dias Ductal carcinoma in situ [...] * DAJA PEACE PDOB: (74 yo F)Acc No.[id number]:09/09/2024 Progress Notes Patient: DAJA HAAS Provider: Satinder Dias MD :1950 A ge:74 Y S ex:Female Date:09/09/2024 Address:[address] [place] [address], [id number] Pcp:Joseph Valencia MD Subjective: * Chief Complaints: [...] medial right kidney, Former smoker since 1998, [id number] son, [id number] invasive ductal carcinoma left breast April [id number] [...] Lumpectomy and sentinel node biopsy left breast, [facility], Dr. Mixon 04/2021, Breast cancer surgery [...] 09/09/2024 Generated for Pina bennett/Rozina/Michellitting on: 0 12/02/2024 02:03 PM EDT History and Physical Notes * [...]
--- NOTE | ~2024-12-02 | NM_ITS ---
EXAMINATION: NM KIDNEY IMAGING CLINICAL INFORMATION: Crossing vessel and stricture of ureter without hydronephrosis. Past history of bilateral nephroliths is is a dilated right kidney pelvis. COMPARISON: None available. TECHNIQUE: Following intravenous administration of 10 mCi of technetium 99m DTPA, imaging over the posterior abdomen with attention kidneys was obtained up to 30 minutes. At 30 minutes 36 mg of IV Lasix was given intravenously and further imaging obtained up to 30 minutes. FINDINGS: There is normal symmetrical cortical uptake with bilateral caliectasis and prominent kidney pelvises. Post Lasix there is normal emptying of left kidney pelvis with increased activity in the right kidney pelvis isotope accumulation but no cortical activity remaining. Suspect renal function right kidney 22.2% in left kidney 77.8%. Time from Lasix to half Lasix right kidney 49.5 minutes and left kidney 45.2 minutes. There is contrast accumulation in bladder which appears unremarkable. NM/NM renal flow w pharm int IMPRESSION: Increased accumulation in the right kidney pelvis likely UPJ obstruction. No cortical retention seen in either kidneys. Post Lasix there is right renal obstruction likely extrinsic. Normal bilateral cortical renal function with split function right kidney 22.2% and left kidney 77.8% Electronically signed by: Esequiel Hdez MD 12/02/2024 04:15 PM EDT RP
--- OUTSIDE RECORDS SUMMARY | 2024-12-02 14:03 | XMS_ITS | Clinical Summary ---
Author Organization [facility] Address [address] [facility] [address] [place] [address] Phone Care Team Providers Care Hvac Residential Service Technician Name Role Phone Joseph Valencia MD Primary Care Provider [phone] Allergies Active Allergy Reactions Criticality Noted Date [...] Refill [facility] [address] [place], [place] [address] Carlos Manuel [...] Visit [facility] [address] [place] [address] Carlos Manuel Wagoner MD [address] [facility] [address] [place] [address] Health Maintenance Due Date Last [...] patient's age to complete this topic Insurance [facility] Care Teams Hvac Residential Service Technician Relationship Specialty Start Date End Date Joseph Valencia MD [address] [place] [address] [address] [place], [place] PCP - General Internal Medicine 08/02/23
--- OUTSIDE RECORDS SUMMARY | 2024-12-02 14:03 | XMS_ITS | Encounter Summary ---
Author Organization [facility] Address [address] [facility] [address] [place] [address] Phone Care Team Providers Care Certified Ophthalmic Assistant Name Role Phone Joseph Valencia MD Primary Care Provider Encounter Details Date Type Department Care Team (Late st Contact Info) Description 06/20/2021 Ancillary Orders [facility],Outside Imaging [address] [place] [address] System, Provider Not In, [place] [address] Social History Tobacco Use Types Packs/Day Years Used Date Smoking Tobacco: Former Cigarettes Q uit: 1998 Smokeless Tobacco: Never Alcohol Use Standard Drinks/Week Comments Not Currently 0 (1 standard drink = 0.6 oz pur e alcohol) Comments Unknown Sex and Gender Information Value Date Recorded Sex Assigned at Not on file Legal Sex Female 9:41 AM EST Gender Identity Not on file Sexual Orientation Not on file documented as of this encounter Plan of Treatment Not on file documented as of this encounter Results * Mammogram Outside (No Interpretation) (03/24/2021 12:00 AM EST) Narrative SYSTEMGENERATED, DOCUMENTATION - 06/20/2021 4:02 PM EST This study is for PACS storage only and not for interpretation. us Provider Not In System PhD IMG OUTSIDE IMAGING W /OUT INTERPRETATION Final Result documented in this encounter Visit Diagnoses Not on filedocumented in this encounter Care Teams Certified Ophthalmic Assistant Relationship Specialty Start Date End Date Joseph Valencia MD [address] [place] [address] [place] [address] PCP - General Internal Medicine 12/13/19 documented as of this encounter Additional Source Comments The information contained in this document represents components of the legal health record. It is not the complete legal health record.[facility]
--- OUTSIDE RECORDS SUMMARY | 2024-12-02 14:05 | XMS_ITS | Patient Health Record ---
Author Organization [facility] Address [address] [place] [address] Care Team Providers Care Conductor Road Freight Name Role Phone APOORVA HILL Primary Care Provider George Valente Unavailable [phone] George Dias MD Unavailable Unavailable Allergies Allergen (clinical drug ingredient) Drug/Non Drug Allergy documented on EMR Reaction Allergy Type Onset Date Status codeine Codeine Unknown Drug Allergy Active Substance with sulfonamide structure and antibacterial mechanism of action (substance) Sulfa (uncoded) Unknown Allergy Active Penicillin (uncoded) Unknown Allergy Active Results Component Value Reference Range Notes Pathology Reviewed date:01/17/2024 02:55:38 PM Interpretation: Performing Lab:[facility], [address] [place] [id number] Notes/Report: Reason For Referral No Information Medications Medication SIG (Take, Route, Frequency, Duration) Notes Start Date End Date Status Tylenol Extra Strength Active Carvedilol 3.125 MG PLEASE SEE ATTACHED FOR DETAILED DIRECTIONS Oral for 90 Active The Beer X-Change Active Letrozole 2.5 MG Oral for 90 [...] Problem Status W/U Status Risk Notes Problem 83288648 Epigastric abdominal pain (R10.13) Active confirmed Problem Screening for malignant neoplasm of colon (078343278) Encounter for screening for malignant neoplasm of colon (Z12.11) Active confirmed Problem History of polyp of colon (situation) (638526835) Personal history of colonic polyps (Z86.010) Active confirmed Problem Diverticular disease of colon (133616625) Diverticulosis of large intestine without perforation or abscess without bleeding (K57.30) Active confirmed Problem 157268190 Gastroesophageal reflux disease, esophagitis presence not specified (K21.9) Active confirmed Problem 48471207 Rectal bleed (K62.5) Active confirmed Problem Benign neoplasm of colon (89395295) 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 Problem Ulcerative colitis (65352212) Ulcerative colitis (K51.90) Active confirmed Problem Proctitis (0471146) 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) Active confirmed Problem Diverticulosis of colon (971546582) Diverticulosis of colon (K57.30) Active confirmed Vital Signs Temperature 98.6 degrees Fahrenheit 06/11/2024 Blood pressure diastolic 77 mm Hg 10/15/2024 Height 65 in 10/15/2024 Blood pressure systolic 111 mm Hg 10/15/2024 Weight 155 lbs 10/15/2024 BMI 25.79 kg/m2 10/15/2024 Procedures Procedure Date Ordered Date Performed Result Body Sit e COLONOSCOPY 10/15/2024 N/A Encounters Encounter Location Date Provider Diagnosis [facility] [address] [place] [id number] 01/04/2024 George Nguyen Colon cancer screeni ng Z12.11 ; Colon polyps K63.5 ; Ulcerative colitis K51.90 and Diverticulosis of large intestine without perforation or abscess without bleeding K57.30 [facility] [address] [place] [id number] 12/01/2024 George Nguyen [facility] [address] [place] [phone] 06/11/2024 George Nguyen Ulcerative colitis K51.90 ; Encounter for screening for malignant neoplasm of colon Z12.11 and Personal history of colonic polyps Z86.010 [facility] [address] [place] [phone] 10/15/2024 George Nguyen Rectal bleed K62.5 ; Ulcerative colitis K51.90 ; Gastroesophageal reflux disease, esophagitis presence not specified K21.9 ; Tubulovillous adenoma of colon K63.5 and Encounter for screening for malignant neoplasm of colon Z12.11 [facility] [address] [place] [phone] 12/31/2023 George Nguyen [facility] [address] [place] [phone] 01/03/2024 George Nguyen [facility] [address] [place] [phone] 01/05/2024 George Carey [facility] [address] [place] [address] 02/02/2024 George Carey [facility] [address] [place] [address] 02/06/20[facility] [address] [place] [address] 02/11/2024 George Carey [facility] [address] [place] [address] 03/05/2024 George Carey [facility] [address] [place] [address], [place] [address] 04/02/2024 [facility] [address] [place] [address], [place] [address] 06/17/2024 George Carey [facility] [address] [place] [address], [place] [address] 10/16/2024 George Nguyen Assessments Encounter Date Diagnosis [...] 01/22/2020 COLONOSCOPY 01/22/2020 COLONOSCOPY 09/29/2020 COLONOSCOPY 09/26/2023 Insurance Providers Payer Name Payer Address Payer Phone Subscriber Number Group Number Insured Name Patient Relationship to Insured Coverage Start Date Coverage End Date [facility] [address] [place] [address] [phone] [id number] DAJA YOUNG Self - patient is the insured Medical (General) History Medical History History ICD Code Lung cancer - 1998--Removed upper right lobe Breast cancer-1998 Left--surgery and XRT ; and 03/2019 Right--surgery and XRT GERD Overactive parathyroid Anxiety Arthritis Colonoscopy in 2004 was neg. except for a hyperplastic polyp Denies SC,DM,CVA,renal disease COPD Colonscopy in 01/2020 with a [...] Surgery Date(Month/Year) Parathyroid surgery scheduiled for at [facility] Vein surgery left leg - Dr. Aponte 01/2023 Lasik surgery on both eyes Cateracts left and right -Dr. Newton Right inguinal hernia repair Lumpectomies right and left breast for cancer with left sided node dissection RUL lung resection for cancer
== END ==
LOC: HO.NUCMED 13:00
PROVIDERS: PCP Internal Medicine; Visit Provider Nurse Practitioner Family
DX: N13.5 Crossing vessel and stricture of ureter without hydronephrosis (principal)
CPT/HCPCS: 78708; A9539; J1938

== ENCOUNTER → 2024-12-02 13:02 | Outpatient (BNV) | payer MEDICARE, SELFPAY | PROVIDERS: PCP Internal Medicine; Visit Provider Radiology Diagnostic Radiology | DX: R94.4 Abnormal results of kidney function studies (principal) | CPT/HCPCS: 78708 ==

== ENCOUNTER 2024-12-31 11:36 | Outpatient (AMB) | payer MEDICARE, SELFPAY ==
--- OUTSIDE RECORDS SUMMARY | 2023-11-06 11:00 | XMS_ITS ---
Author Organization [facility] Address [address] [place] [address] Care Team Providers Care Process Coordinator Name Role Phone Joseph Valencia MD Primary Care Provider Merle Lopez [phone] Encounters Encounter Location Date Provider Diagnosis [address] [address] 11/06/2023 Merle Parker Plan Of Treatment No Information Progress Notes * Eliza RINCON PDOB: (74 yo F)Acc No.[id number]:11/06/2023 Progress Notes Patient: Jaimee AHMADIELISEO Eliza Tavares Provider: Darrick Parekr DPM :1950 A ge:73 Y S ex:Female Date:11/06/2023 Address:[address] [place], [place] [phone] Pcp:Joseph Valencia MD Subjective: * Chief Complaints: [...] 11/06/2023 Generated for Printi ng/Faxing/eTransmitting on: 0 12/31/2024 12:55 PM EDT
--- OUTSIDE RECORDS SUMMARY | 2024-09-09 12:00 | XMS_ITS ---
Author Organization George Dias III, MD Address [address] [facility] [place] [place] [address] Care Team Providers Care Quill Stripper Name Role Phone Joseph Valencia MD Primary Care Provider George Ren Unavailable [phone] Allergies Allergen (clinical drug ingredient) Drug/Non Drug [...] Date Provider Diagnosis George Dias III, MD [address] [place] [address] [place] [address] 09/09/2024 George Dias Ductal carcinoma in situ [...] * DAJA PEACE PDOB: (74 yo F)Acc No.[id number]:09/09/2024 Progress Notes Patient: DAJA HAAS Provider: Satinder Dias MD :1950 A ge:74 Y S ex:Female Date:09/09/2024 Address:[address] [place] [address], [id number] Pcp:Joseph Valencia MD Subjective: * Chief Complaints: [...] medial right kidney, Former smoker since 1998, [id number] son, [id number] invasive ductal carcinoma left breast April [id number] [...] Lumpectomy and sentinel node biopsy left breast, [facility], Dr. Mixon 04/2021, Breast cancer surgery in [...] 09/09/2024 Generated for Pina bennett/Rozina/Michellitting on: 0 12/31/2024 12:55 PM EDT History and Physical Notes * [...]
--- NOTE | 2024-12-31 11:36 | A.OFFVIS_ITS ---
Intake Visit Reasons: 3m/ Renal Scan Intake Note: Patient is present for 3M/RENAL SCAN Urology Medication:POTASSIUM CHLORIDE Antibiotic Allergy:PENICILLIS,SULFA Blood Thinner:ASPIRIN Nail Machine Operator Required: No Allergies codeine Allergy (Severe, Verified 12/31/24 13:05) nausea eplerenone Allergy (Severe, Verified 12/31/24 13:05) Gastrointestinal Upset Penicillins Allergy (Severe, Verified 12/31/24 13:05) Anaphylaxis sulfamethoxazole (From BACTRIM) Allergy (Severe, Verified 12/31/24 13:05) HIVES/RASH/SWELLING tamsulosin Adverse Reaction (Severe, Verified 12/31/24 13:05) cardiac Medication List - Last Reconciled 12/31/24 by BERNY Stanford-SANJUANA acetaminophen 1,000 mg PO Q6H PRN albuterol sulfate 90 mcg/actuation (Ventolin HFA) 2 puffs inhalation Q4-6H PRN 30 days albuterol sulfate 2.5 mg (6 mL) inhalation Q4-6H PRN 30 days alprazolam 0.5 mg PO BID PRN aspirin (Adult Aspirin Regimen) 81 mg PO DAILY carvedilol 6.25 mg PO BID clobetasol 0.05% 1 appl topical DAILY diclofenac sodium 1% 4 grams topical QID diltiazem HCl CD 180 mg PO DAILY doxycycline hyclate 100 mg PO Q12H 5 days ferrous sulfate 28 mg PO DAILY fluticasone propion-salmeterol 250-50 mcg/dose (Wixela Inhub) 1 ea inhalation BID 30 days furosemide (Lasix) 20 mg orally 2 tabs in the am and 1 tab in the afternoon; 30 days inhalational spacing device (BreatheRite MDI Spacer) As directed letrozole 2.5 mg PO DAILY mesalamine 4.8 grams PO DAILY multivitamin 1 tab PO DAILY omeprazole 20 mg PO BID potassium chloride ER 20 mEq PO DAILY sertraline 25 mg PO DAILY tiotropium bromide (Spiriva with HandiHaler) 1 cap inhalation DAILY 30 days HPI Comments Details: Eliza is a very pleasant 74-year-old female patient of Dr. Vann. She has a past medical history of breast cancer, hypertension, hypercholesteremia, hiatal hernia, nephrolithiasis, arthritis, anxiety, hypothyroidism, lung cancer, GERD, asthma, and pulmonary hypertension. She is being followed up on today via telehealth for her history of nephrolithiasis and hydronephrosis. In discussion with the patient today she reports to be doing and feeling well. She denies having had any bothersome urinary issues or concerns. Recent nuclear renal scan results were reviewed with the patient today 12/05 increased accumulation in the right kidney pelvis likely UPJ obstruction. Normal bilateral cortical renal function and split function estimated right kidney 22% and left kidney 78% per radiology report. Previous workup has also included CT urogram 09/05 noting bilateral nephrolithiasis. It dilated right kidney pelvis likely secondary to UPJ stricture or narrowing. No obstructive calculi seen at the UPJ. There are bilateral 6 mm nonobstructing renal calculi. No hydronephrosis noted bilaterally. She does report intermittent episodes of bilateral flank pain however feels these episodes are infrequent. Patient with a longstanding history of nephrolithiasis requiring surgical intervention. Patient underwent left-sided ureteroscopy with Dr. Hammer 10/04 for a 6 mm left UVJ stone followed by in office cystoscopy with left-sided ureteral stent removal shortly after. She has a previous history of ESWL in 2012. We discussed at length potential causes of nephrolithiasis as well as UPJ obstruction. We discussed cystoscopy with bilateral retrogrades and potential right ureteral stent placement. Risks and benefits of this intervention was discussed. When asked she denies incontinence, nocturia, hematuria, dysuria, foul smelling urine, changes to urinary stream, flank pain, fever, and or chills. She is happy with her current voiding parameters. All questions were answered. She otherwise offers no other issues or concerns at this time. BUN: 02/03 12, 08/04 12, 09/04 12, 10/04 17, 01/04 15, 09/05 22, 11/05 16 Creatinine: 02/03 0.70, 08/04 0.70, 09/04 0.64, 10/04 0.79, 01/04 0.74, 08/04 0.63, 09/05 0.66, 11/05 0.62 PFSH Medical History Non-rheumatic mitral regurgitation Breast cancer Essential hypertension Hypercalcemia Slow to wake up after anesthesia Hx of radiation therapy Hiatal hernia PONV (postoperative nausea and vomiting) Anemia History of kidney stones Proctitis Arthritis Anxiety Hyperparathyroidism Lung cancer GERD (gastroesophageal reflux disease) Asthma-COPD overlap syndrome Pulmonary hypertension Surgical History History of surgery on lower extremity History of parathyroidectomy H/O cataract extraction Hx of cardiac catheterization Hx of varicose vein ligation and stripping History of lumpectomy of both breasts History of right inguinal hernia repair History of lithotripsy History of lobectomy of lung Hx of colonoscopy (~01/04/24) History of esophagogastroduodenoscopy Family History Mother Breast cancer Bone cancer Heart attack Father Abdominal aneurysm Enlarged heart Brother Lung cancer Brain cancer Social History Household Members: Family Household Members Other:: son and disabled sister Housing: House Are you a primary family day care provider to a significant other at home: Yes Do you presently have visiting nurse or other home services: Yes Alcohol intake: former Patient Tobacco Use Status: Former Tobacco user Tobacco use type: Cigarette Years Smoked: 31 service: No Current occupational status: retired Cognitive needs: Yes (cane) Hearing needs: No Vision needs: Yes ([place]) Review of Systems Const Reports no additional complaints Eyes Reports no additional complaints ENT Reports no additional complaints Card Reports as per HPI Resp Reports as per HPI GI Reports as per HPI Reports as per HPI Musc Reports as per HPI Skin/Breast Reports as per HPI Neuro Reports no additional complaints Psych Reports no additional complaints Bo/Lymph Reports no additional complaints Aller/Immun Reports no additional complaints Physical Exam Const General: cooperative Orientation/consciousness: patient oriented x3 Resp Effort & Inspection: able to speak in complete sentences Neuro General: patient oriented x3 Psych Speech and movement: Clear speech present Attitude: cooperative Thought process: Normal thought process present Thought content: Normal thought content present Insight: Fair insight present (Psych) Judgement: Fair judgement present (Psych) Telehealth Telehealth Telehealth Platform: [facility] Location of provider rendering services: practice address Location of patient: address on file Patient Identification confirmed using: Name, : Yes Telehealth method: voice only Patient verbally consented to treatment: Yes Patient verbally consented to billing insurance company: Yes Patient informed of any privacy concerns related to visit: Yes Minutes spent on Phone/Video with Pt.: 20 Results Reviewed Results Reviewed: Date of Service: 12/02/24 Procedure(s): NM renal flow w pharm int FINDINGS: There is normal symmetrical cortical uptake with bilateral caliectasis and prominent kidney pelvises. Post Lasix there is normal emptying of left kidney pelvis with increased activity in the right kidney pelvis isotope accumulation but no cortical activity remaining. Suspect renal function right kidney 22.2% in left kidney 77.8%. Time from Lasix to half Lasix right kidney 49.5 minutes and left kidney 45.2 minutes. There is contrast accumulation in bladder which appears unremarkable. IMPRESSION: Increased accumulation in the right kidney pelvis likely UPJ obstruction. No cortical retention seen in either kidneys. Post Lasix there is right renal obstruction likely extrinsic. Normal bilateral cortical renal function with split function right kidney 22.2% and left kidney 77.8% Assessment & Plan Assessment & Plan (1) Ureteropelvic junction (UPJ) obstruction: Code(s): N13.5 - Crossing vessel and stricture of ureter without hydronephrosis Category: Medical (2) Nephrolithiasis: Code(s): N20.0 - Calculus of kidney Category: Medical Plan: Risks, benefits and alternatives to therapy were discussed. These include but are not limited to infection, bleeding, damage to local organs and tissues, need for further interventions. ? Anesthetic risks regarding cardiac arrhythmia, blood clots, and potential mortality were discussed. The patient understands the typical recovery time and the outpatient nature of the procedure. After consideration of these risks the patient gives full informed consent and they wish to move ahead with the procedure. Plan Recent nuclear renal scan results were reviewed with the patient today; as noted above. Recent BUN and creatinine results reviewed with the patient today; as noted above. She currently denies any bothersome urinary issues or concerns. She reports be happy with current voiding parameters. We did discussed potential causes of UPJ obstruction as well as further inter ventions and risks and benefits of these interventions. All questions were answered. Will schedule for cystoscopy with bilateral retrogrades and potential right ureteral stent placement. Follow-up per doctor's orders; or sooner with any issues, concerns, and or questions. Patient Instructions: The patient had an opportunity to ask questions regarding the treatment plan. All questions were answered. Physical exam, labs, and imaging were discussed and reviewed in detail. As well as risks, benefits, and discussion of treatment choices. No major barriers to understanding were identified. The patient expressed understanding and agreement with the above treatment plan. The patient was made aware they should contact our office by phone for worsening of their current condition, the appearance of new symptoms, or with any questions or concerns. Compliance is encouraged with any medications and follow up testing that is ordered. It is a privilege to be allowed the opportunity to participate in? your urological care.? Again, if you have any questions or concerns If you have any questions or concerns please do not hesitate to contact me. The office is [phone]. This note is constructed using voice recognition software. While every effort has been made to ensure accuracy escrow representative errors may have been included. Yours sincerely, LIZBETH Stanford Coding Level of Care Code Tele Est Pt Level 4 (29975) Complex EM visit Add On G2211 Diagnoses Ureteropelvic junction (UPJ) obstruction N13.5 Nephrolithiasis N20.0
--- OUTSIDE RECORDS SUMMARY | 2024-12-31 12:54 | XMS_ITS | Clinical Summary ---
Author Organization [facility] Address [address] [facility] [address] [place] [address] Phone Care Team Providers Care Medical Lab Assistant Name Role Phone Joseph Valencia MD Primary Care Provider [phone] Allergies Active Allergy Reactions Criticality Noted Date [...] MEQ TOTAL) BY MOUTH 1 (ONE) TIME 180 capsule 12/19/19 25 Active potassium chloride (MICRO-K) 10 MEQ CR capsule TAKE 2 CAPSULES (20 MEQ TOTAL) BY MOUTH 1 (ONE) TIME EACH DAY PT TAKEN IT 2 TIMES A DAY 180 capsule 09/16/19 25 025 Discontinued Active Problems Problem Noted Date Diagnosed Date Essential (primary) hypertension 10/29/2023 Personal history of kidney stones 10/29/2023 Other secondary hypertension 08/02/2023 Encounters Date Type Department Care Team Description 12/17/2024 Refill [facility] [address] [place] [address] Carlos Manuel Wagoner MD from Last 3 [...] Visit [facility] [address] [place] [address] Carlos Mnauel Wagoner MD [address] [facility] [address] [place] [address] Health Maintenance Due Date Last [...] age to complete this topic Insurance [facility] Care Teams Medical Lab Assistant Relationship Specialty Start Date End Date Joseph Valencia MD [address] [place], [place] PCP - General Internal Medicine 08/02/23
--- OUTSIDE RECORDS SUMMARY | 2024-12-31 12:55 | XMS_ITS | Encounter Summary ---
Author Organization [facility] Address [address] [facility] [address] [place] [address] Phone Care Team Providers Care Bankruptcy Manager Name Role Phone Joseph Valencia MD Primary Care Provider Encounter Details Date Type Department Care Team (Late st Contact Info) Description 06/20/2021 Ancillary Orders [facility],Outside Imaging [address] [place] [address] System, Provider Not In, [place] [address] Social History Tobacco Use Types Packs/Day Years [...] on filedocumented in this encounter Care Teams Bankruptcy Manager Relationship Specialty Start Date End Date Joseph Valencia MD [address] [place] [address] [place] [address] PCP - General Internal Medicine 12/13/19 documented as of this encounter Additional Source Comments The information contained in this document represents components of the legal health record. It is not the complete legal health record.[facility]
--- OUTSIDE RECORDS SUMMARY | 2024-12-31 12:56 | XMS_ITS | Patient Health Record ---
Author Organization [facility] Address [address] [place] [address] Care Team Providers Care Conciliator Name Role Phone APOORVA HILL Primary Care Provider George Valente Unavailable [phone] George Dias MD Unavailable Unavailable Allergies Allergen (clinical drug ingredient) Drug/Non Drug Allergy documented on EMR Reaction Allergy Type Onset Date Status codeine Codeine Unknown Drug Allergy Active Substance with sulfonamide structure and antibacterial mechanism of action (substance) Sulfa (uncoded) Unknown Allergy Active Penicillin (uncoded) Unknown Allergy Active Results Component Value Reference Range Notes Pathology Reviewed date:01/17/2024 02:55:38 PM Interpretation: Performing Lab:[address] [address] Notes/Report: Pathology (Not yet reviewed by provider) Interpretation: Performing Lab:[address] [address] Notes/Report: Reason For Referral No Information Medications Medication SIG (Take, Route, Frequency, Duration) Notes Start Date End Date Status Tylenol Extra Strength Active Carvedilol 3.125 MG PLEASE SEE ATTACHED FOR DETAILED DIRECTIONS Oral for 90 Active Ecowell Active Letrozole 2.5 MG Oral for 90 A ctive Mesalamine 1000 MG 1 suppository at bedtime Rectal Every night at bedtime for 30 day(s) 07/20/2023 Not-Taking Albuterol Sulfate HFA 108 (90 Base) MCG/ACT Inhalation for 25 Active Turmeric Not-Taking Mesalamine 1000 MG 1 suppository at bedtime Rectal Once every night for 30 days 12/02/2024 Active ALPRAZolam 0.5 MG as directed Orally [...] Problem Status W/U Status Risk Notes Problem 35074121 Epigastric abdominal pain (R10.13) Active confirmed Problem Screening for malignant neoplasm of colon (617910124) Encounter for screening for malignant neoplasm of colon (Z12.11) Active confirmed Problem History of polyp of colon (situation) (564131278) Personal history of colonic polyps (Z86.010) Active confirmed Problem Diverticular disease of colon (533253010) Diverticulosis of large intestine without perforation or abscess without bleeding (K57.30) Active confirmed Problem 111780019 Gastroesophageal reflux disease, esophagitis presence not specified (K21.9) Active confirmed Problem 46776210 Rectal bleed (K62.5) Active confirmed Problem Benign neoplasm of colon (69321995) 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 Problem Ulcerative colitis (18358353) Ulcerative colitis (K51.90) Active confirmed Problem Proctitis (0306169) 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) Active confirmed Problem Diverticulosis of colon (670093497) Diverticulosis of colon (K57.30) Active confirmed Vital Signs Temperature 98.6 degrees Fahrenheit 06/11/2024 Blood pressure diastolic 77 mm Hg 10/15/2024 Height 65 in 10/15/2024 Blood pressure systolic 111 mm Hg 10/15/2024 Weight 155 lbs 10/15/2024 BMI 25.79 kg/m2 10/15/2024 Procedures Procedure Date Ordered Date Performed Result Body Sit e COLONOSCOPY 10/15/2024 N/A Encounters Encounter Location Date Provider Diagnosis [facility] [address] [place] [phone] 01/04/2024 George Nguyen Colon cancer screeni ng Z12.11 ; Colon polyps K63.5 ; Ulcerative colitis K51.90 and Diverticulosis of large intestine without perforation or abscess without bleeding K57.30 [facility] [address] [place] [phone] 12/01/2024 George Nguyen [facility] [address] [place] [phone] 06/11/2024 George Nguyen Ulcerative colitis K51.90 ; Encounter for screening for malignant neoplasm of colon Z12.11 and Personal history of colonic polyps Z86.010 [facility] [address] [place] [phone] 10/15/2024 George Nguyen Rectal bleed K62.5 ; Ulcerative colitis K51.90 ; Gastroesophageal reflux disease, esophagitis presence not specified K21.9 ; Tubulovillous adenoma of colon K63.5 and Encounter for screening for malignant neoplasm of colon Z12.11 [facility] [address] [place] [phone] 01/03/2024 George Carey [facility] [address] [place] [address] 01/05/2024 [facility] [address] [place] [address] 02/02/2024 [facility] [address] [place] [address] 02/06/2024 [facility] [address] [place] [address] 02/11/2024 [facility] [address] [place] [address] 03/05/2024 [facility] [address] [place] [address] 04/02/2024 [facility] [address] [place] [phone] 06/17/2024 [facility] [address] [place] [phone] 10/16/2024 George Nguyen [facility] [address] [place] [phone] 12/02/2024 George Nguyen Assessments Encounter Date Diagnosis (ICD [...] CBC w DIFF 10/15/2024 US ABD 02/10/2020 Pathology 12/01/2024 Future Test Test Name Order Date UPPER GI ENDOSCOPY 01/22/2020 COLONOSCOPY 01/22/2020 COLONOSCOPY 09/29/2020 COLONOSCOPY 09/26/2023 Next Appt Details Provider Name:George Nguyen , 02/03/2025 02:40:00 PM, [address], [place], [address], Insurance Providers Payer Name Payer Address Payer Phone Subscriber Number Group Number Insured Name Patient Relationship to Insured Coverage Start Date Coverage End Date [facility] [address] [place] [phone] [id number] DAJA YOUNG Self - patient is the insured Medical (General) History Medical History History ICD Code Lung cancer - 1998--Removed upper right lobe Breast cancer-1998 Left--surgery and XRT ; and 03/2019 Right--surgery and XRT GERD Overactive parathyroid Anxiety Arthritis Colonoscopy in 2004 was neg. except for a hyperplastic polyp Denies KS,DM,CVA,renal disease COPD Colonscopy in 01/2020 with a [...] Surgery Date(Month/Year) Parathyroid surgery scheduiled for at [facility] Vein surgery left leg - Dr. Aponte 01/2023 Lasik surgery on both eyes Cateracts left and right -Dr. Newton Right inguinal hernia repair Lumpectomies right and left breast for cancer with left sided node dissection RUL lung resection for cancer
== END 2024-12-31 13:26 | disposition home or self-care (01) ==
LOC: HO.HUSH 11:36
PROVIDERS: PCP Internal Medicine; Visit Provider Nurse Practitioner Family
DX: N13.5 Crossing vessel and stricture of ureter without hydronephrosis (principal); N20.0 Calculus of kidney
CPT/HCPCS: 99214; G2211

== ENCOUNTER 2025-01-06 16:40 | Outpatient (AMB) | payer MEDICARE, SELFPAY ==
--- OUTSIDE RECORDS SUMMARY | 2023-09-12 11:18 | XMS_ITS ---
Author Organization George Dias III, MD Address [address] [facility] [place] [address] Care Team Providers Care Patrol Judge Name Role Phone Joseph Valencia MD Primary Care Provider George Ren [phone] REASON FOR VISIT wants lab results done on 09/10/2023 Encounters Encounter Location Date Provider Diagnosis George Dias III, MD [address] [place] [address] [place] [address] 09/12/2023 George Dias Plan Of Treatment No Information Progress Notes * DAJA PEACE PDOB: (73 yo F)Acc No.[id number]:09/12/2023 Patient: Jaimee DAJA VASQUEZ :1950 A ge:73 Y S ex:Female Address:[address] [place] [address] [facility] [place], [address] * true * Date: Generated for Printi ng/Faxing/eTransmitting on: 0 01/06/2025 04:56 PM EDT
--- OUTSIDE RECORDS SUMMARY | 2023-09-19 11:00 | XMS_ITS | Continuity of Care Document ---
Author Organization [facility] Address [address] [place] [address] Phone Care Team Providers Care Upholstery Trimmer Name Role Phone Yasmany KEY, GARDENIA, George [...] Telemedicine [place] & [place] [facility], [address] [place] [address] [address], [place], [id number], [place] tel:[phone] R - [place] - [place] Varicose veins of bilateral lower extremities with other complicationsL ocalized edemaCramp and spasmPruritus, unspecifiedEss ential (primary) hypertension 4 Yasmany KEY, GARDENIA, CROW Vazquez. [address] [facility], [address], [facility], [id number] , [place]. tel:[phone] Offic Cons New/estab Mod-hi 60- [place] & [place] [facility], [address] [place] [address] [address], [place], [id number], tel:[phone] CVR - [place] - [place] Essential (primary) hypertensionPr uritus, unspecifiedPai n in left legCramp and spasmLocalized edemaVaricose veins of bilateral lower extremities with other complicationsP ain in right lower legPain in left lower legPain in right leg 4 Yasmany KEY RVT, CROW Vazquez. [address] [place] [address], [facility] [place]is[place], [place], [id number] , [place]. tel:[phone] [facility], [address] [place] [address] [address] 1000[facility] [address], [id number], tel:[phone] CVR - [facility] Varicose veins of bilateral lower extremities with pain 4 Yasmany KEY RVT, CROW Vazquez. [address] [place] [address], Lalit [place]is [place], [id number] , [place]. tel:[phone] Referring Provider: George Jade MD, RVT, CROW, [address] [place] [address], [place], [address] . tel:[phone] Family History Family Member Type Diagnosis Age At Onset No Information Payers Payer name Insurance type Covered green party ID Grayson jacome(s) [employer] [place] [employer] CI [id number] Social History Type Description Quantity Date Captured [...]
--- OUTSIDE RECORDS SUMMARY | 2023-11-06 11:00 | XMS_ITS ---
Author Organization [facility] Address [address] [place] [phone] Care Team Providers Care Drug Inspector Name Role Phone Joseph Valencia MD Primary Care Provider Merle Lopez [phone] Encounters Encounter Location Date Provider Diagnosis [address] [address] 11/06/2023 Merle Parker Plan Of Treatment No Information Progress Notes * Eliza RINCON PDOB: (74 yo F)Acc No.[id number]:11/06/2023 Progress Notes Patient: Jaimee AHMADIELISEO Eliza Tavares Provider: Darrick Parker DPM :1950 A ge:73 Y S ex:Female Date:11/06/2023 Address:[address] [place], [place] [phone] Pcp:Joseph Valencia MD Subjective: * Chief Complaints: [...] 0 11/06/2023 Generated for Printi ng/Faxing/eTransmitting on: 01/06/2025 04:56 PM EDT
--- OUTSIDE RECORDS SUMMARY | 2024-03-07 12:00 | XMS_ITS ---
Author Organization George Dias III, MD Address [address] [place] [address] Care Team Providers Care Web Support Engineer Name Role Phone Joseph Valencia MD Primary Care Provider George Ren Unavailable [phone] Allergies Allergen (clinical drug ingredient) Drug/Non Drug [...] Furosemide 20 MG TAKE 1 TABLET BY EVERY DAY FOR 30 DAYS Active Letrozole [...] Date Provider Diagnosis George Dias III, MD [address] [place] [address] [place] [address] 03/07/2024 George Dias Ductal carcinoma in situ [...] Her reflux symptoms are well controlled with beiu-oas-ybzstzp medication. 03/07/2024 Former smoker (ICD-10 - Z87.891) [...] * DAJA PEACE PDOB: (74 yo F)Acc No.[id number]:03/07/2024 Progress Notes Patient: Jaimee DAJA VASQUEZ P Provider: Satinder Dias MD :1950 A ge:74 Y S ex:Female Date:03/07/2024 Address:[address] [place], [place] [phone] Pcp:Joseph Valencia MD Subjective: * Chief Complaints: [...] trying to get in touch with her pharmacoepidemiologist, Dr. Zee, to discuss her heart condition [...] lobectomy, stage I adenocarcinoma of, Dr. Scherer 1999Lumpectomy and sentinel nodes left breast major veins removed right leg 1 major vein removed- Dr. Lo 36 weeks radiation . Left breast 11/1998Right breast lumpectomy with 2 needle localization (DP) 03/2019multiple negative endometrial biopsies Lumpectomy and sentinel node biopsy left breast, [facility], Dr. Mixon reast cancer surgery in 2021 [...] :Her reflux symptoms are well controlled with yeto-plp-apcxbsg medication. 5 . F ormer smoker - [...] Satinder Dias MD Date: Generated for Pina bennett/Rozina/Ashleesmitting on: 0 01/06/2025 04:56 PM EDT History and Physical Notes * [...]
--- OUTSIDE RECORDS SUMMARY | 2024-09-09 12:00 | XMS_ITS ---
Author Organization George Dias III, MD Address [address] [place] [address] Care Team Providers Care Pig Caster Name Role Phone Joseph Valencia MD Primary Care Provider George Ren Unavailable [phone] Allergies Allergen (clinical drug ingredient) Drug/Non Drug [...] Provider Diagnosis George Dias III, MD [address] [place] [address] [place] [address] 09/09/2024 George Dias Ductal carcinoma in situ [...] day Progress Notes * DAJA PEACE PDOB: (74 yo F)Acc No.[id number]:09/09/2024 Progress Notes Patient: DAJA HAAS Provider: Satinder Dias MD :1950 A ge:74 Y S ex:Female Date:09/09/2024 Address:[address] [place] [address], [id number] Pcp:Joseph Valencia MD Subjective: * Chief Complaints: [...] medial right kidney, Former smoker since 1998, [id number] son, [id number] invasive ductal carcinoma left breast April [id number] [...] Lumpectomy and sentinel node biopsy left breast, [facility], Dr. Mixon 04/2021, Breast cancer surgery [...] MD Date: 0 09/09/2024 Generated for Pina bennett/Rozina/Michellitting on: 0 01/06/2025 04:55 PM EDT History and Physical Notes * [...]
--- OUTSIDE RECORDS SUMMARY | 2024-12-01 09:40 | XMS_ITS ---
Author Organization [facility] Address 10 [facility] [address] [place] [address] Care Team Providers Care Bottom Cementer Name Role Phone APOORVA HILL Primary Care Provider George Valente Unavailable [phone] George Dias MD Unavailable Unavailable REASON FOR VISIT ulcerative protocolitis Encounters Encounter Location Date Provider Diagnosis [facility] Outpatient [address] [place] [id number] 12/01/2024 George Nguyen Plan Of Treatment Next Appt Details Provider Name:George Nguyen , 02/03/2025 02:40:00 PM, [address] [facility], Suite [facility], [place], [address], Progress Notes * DAJA YOUNG PDOB: (74 yo F)Acc No.[id number]:12/01/2024 COLON WITH MAC Patient: Jaimee DAJA DOE Provider: Satinder Nguyen MD :1950 A ge:74 Y S ex:Female Date:12/01/2024 Address:[address] [place], [place] [phone] Pcp:APOORAV HILL Subjective: * Chief Complaints: * 1 [...] 12/01/2024 Generated for Pina bennett/Rozina/Annabel on: 0 01/06/2025 04:57 PM EDT
--- NOTE | 2025-01-06 16:47 | MHC.PC.OV ---
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 Operator Required: No Accompanied by: Son Allergies codeine Allergy (Severe, Verified 01/06/25 16:47) nausea eplerenone Allergy (Severe, Verified 01/06/25 16:47) Gastrointestinal Upset Penicillins Allergy (Severe, Verified 01/06/25 16:47) Anaphylaxis sulfamethoxazole (From BACTRIM) Allergy (Severe, Verified 01/06/25 16:47) HIVES/RASH/SWELLING tamsulosin Adverse Reaction (Severe, Verified 01/06/25 16:47) cardiac Medication List - Last Reconciled 01/06/25 by CASSIUS Evans acetaminophen 1,000 mg PO Q6H PRN albuterol sulfate 90 mcg/actuation (Ventolin HFA) 2 puffs inhalation Q4-6H PRN 30 days albuterol sulfate 2.5 mg (6 mL) inhalation Q4-6H PRN 30 days alprazolam 0.5 mg PO BID PRN ammonium lactate 12% 1 appl topical BID carvedilol 6.25 mg PO BID clobetasol 0.05% 1 appl topical DAILY diclofenac sodium 1% 4 grams topical QID diltiazem HCl CD 180 mg PO DAILY doxycycline hyclate 100 mg PO Q12H 5 days ferrous sulfate 28 mg PO DAILY fluticasone propion-salmeterol 250-50 mcg/dose (Wixela Inhub) 1 ea inhalation BID 30 days furosemide (Lasix) 20 mg orally 2 tabs in the am and 1 tab in the afternoon; 30 days inhalational spacing device (BreatheRite MDI Spacer) As directed letrozole 2.5 mg PO DAILY mesalamine 1,000 mg RI BEDTIME mesalamine 4.8 grams PO DAILY multivitamin 1 tab PO DAILY omeprazole 20 mg PO BID potassium chloride ER 20 mEq PO DAILY sertraline 25 mg PO DAILY tiotropium bromide (Spiriva with HandiHaler) 1 cap inhalation DAILY 30 days Tobacco use date assessed: 09/16/24 Fall risk assessment: No Falls in past year Last assessed Fall Risk: 01/06/25 Dental Screening Dental Screen Date: 09/16/24 HPI HPI Comments History of Present Illness Details 74 year old female with complicated medical history inclding left breast cancer 1998 with lumpectomy with lymph node harvesting, R breast cancer treated with lumpectomy and radiation then evista followed by letrozole, osteoporosis, hyperparathroidism s/p resection 2.5 lobes, htn, asthma/copd overlasp, pulm hypertension, hx lung cancer presents to the office today for management of chronic conditions and for annual physical exam. She is currently living with her sister as well as her son who is a teacher. She denies any alcohol use. She is a former cigarette smoker, quit on June 20 after being diagnosed with lung cancer. No illicit drug use or marijuana. She is exercising as much as she can but she is limited due to kyphosis resulting in back pain and difficulty with ambulation. She currently walks with a walking stick. Left breast cancer than right-1998 s/p lumpectomy bilaterally with lymph node harvesting. She did undergo radiation then Evista followed by letrozole. Continues to follow annually with breast surgery. Osteoporosis-on letrozole but is being followed with regular DEXA scans. On calcium and vitamin-D Asthma/COPD overlap-recent exacerbation resolved. Following with Dr. Sexton in pulmonology. Compliant with Wixela, Spiriva. Albuterol as needed. Hyperparathyroidism-SP resection of 2.5 nodes. Following with endocrinology Anxiety-alprazolam as needed Hypertension-on Coreg, diltiazem IBD- on mesalamine. Dr Nguyen Lung cancer- s/p RUL lobectomy. No chemo or radiation. Following with pulmonology Concerns: Swelling and pruritus in the left lower extremity. Reports he has occasional cellulitis for which Dr. Valencia gave her doxycycline to use as needed Health maintenance: Last screening mammogram 04/2024, 1 year follow-up advised Last DEXA scan 08/2024 Last screening colonoscopy 12/2023 with 1 year follow-up advised, Dr. Nguyen Reviewed past medical, surgical, family, social history ROS: General: No fevers, malaise, unintentional weight loss HEENT: No blurred vision, diplopia. No sore throat, nasal congestion, rhinorrhea, sinus pain, ear pain. No hearing loss Neck - no adenopathy Cardiovascular: No chest pain, palpitations, or leg edema Respiratory: No shortness of breath, wheezing, cough Breast: No pain, palpable lumps, nipple inversion GI: No dysphagia, odynophagia, globus sensation. No abdominal pain, nausea, vomiting, diarrhea, constipation, melena, hematochezia : No dysuria, hematuria, increased urinary frequency, decreased urinary output. TUFTER HAND: No abn vaginal bleeding or discharge MSK: No myalgia, back pain, arthralgias Neuro: No headaches, weakness, paresthesias Psych: no depression/anxiery. No AH/VH. No SI/HI Skin: No rashes or lesions EXAM: Constitutional - Awake and Alert, No apparent distress Eyes - PERRLA, EOMI. Anicteric Ears - external ears normal, canals clear, TMs intact and pearly robertson with good cone of light Nose- septum midline, nares clear, no sinus tenderness Mouth/throat- mucosa moist, tongue and uvula midline, no erythema/edema or tonsillar adenopathy. Neck-trachea midline, thyroid symmetric without palpable nodules, no adenopathy Cardiovascular - S1S2, RRR Respiratory - Normal lung expansion, Normal respiratory effort, No respiratory distress, CTA bilaterally Gastrointestinal - NT / ND; +BS; No rebound or guarding - No CVA tenderness Extremities - no calf tenderness bilaterally, no swelling Musculoskeletal - significant kyphosis requiring patient to occasionally lift her chin. Ambulating with walking stick Skin - Warm/Dry, no concerning lesions. Venous stasis changes of the bilateral lower extremity with dry flaking skin. No open ulcerations noted. No warmth. 2+ edema bilaterally Neurological - Alert & oriented x3, CN II-XII in tact, 5/5 strength BUE and BLE, 2+ patellar reflexes, sensation intact Psychological - Appropriate affect PFSH Medical History Venous stasis dermatitis of both lower extremities Non-rheumatic mitral regurgitation Breast cancer Essential hypertension Hypercalcemia Slow to wake up after anesthesia Hx of radiation therapy Hiatal hernia PONV (postoperative nausea and vomiting) Anemia History of kidney stones Proctitis Arthritis Anxiety Hyperparathyroidism Lung cancer GERD (gastroesophageal reflux disease) Asthma-COPD overlap syndrome Pulmonary hypertension Surgical History History of surgery on lower extremity History of parathyroidectomy H/O cataract extraction Hx of cardiac catheterization Hx of varicose vein ligation and stripping History of lumpectomy of both breasts History of right inguinal hernia repair History of lithotripsy History of lobectomy of lung Hx of colonoscopy (~01/04/24) History of esophagogastroduodenoscopy Family History Mother Breast cancer Bone cancer Heart attack Father Abdominal aneurysm Enlarged heart Brother Lung cancer Brain cancer Social History Household Members: Family Household Members Other:: son and disabled sister Housing: House Are you a primary healthcare advisory services manager to a significant other at home: Yes Do you presently have visiting nurse or other home services: Yes Alcohol intake: former Patient Tobacco Use Status: Former Tobacco user Tobacco use type: Cigarette Years Smoked: 31 e-Cigarette/Vaping Use: Never Used service: No Current occupational status: retired Cognitive needs: Yes (cane) Hearing needs: No Vision needs: Yes (Reading) Questionnaire Thrive Questionnaire Date Thrive assessed: 09/16/24 AXEL-7 AMB Questionnaire AXEL-7 Date AXEL - 7 assessed: 09/16/24 Source: Developed by Drs. George Raphael, Gricle Vasquez, Arya London and colleagues, with an educational da from [employer]. Physical exam (Primary Care) Vital Signs: Last Vital Signs Temp 97.2 F 01/06/25 16:53 Pulse 78 01/06/25 16:53 Resp 16 01/06/25 16:53 BP 138/50 L 01/06/25 16:53 Pulse Ox 95 01/06/25 16:53 Oxygen Delivery Method Room Air 01/06/25 16:53 BMI result Body Mass Index 25.8 Tobacco/Smoking Status: Tobacco use Status Tobacco use date assessed 09/16/24 01/06/25 16:49 Patient Tobacco Use Status Former Tobacco user 01/06/25 16:49 Tobacco use type Cigarette 01/06/25 16:49 e-Cigarette/Vaping Use Never Used 01/06/25 16:49 Thrive Assessment: Date of Thrive Assessment Date Thrive assessed 09/16/24 01/06/25 16:49 Coding Level of Care Code Est Pt Level 4 (97483) Est Pt Prev Care >65y(85701) Diagnoses Routine medical exam Z00.00 Essential hypertension I10 Age-related osteoporosis without current pathological fracture M81.0 Osteoporosis type: age-related Presence of current pathological fracture: without current pathological fracture Asthma-COPD overlap syndrome J44.9 Gait instability R26.81 Venous stasis dermatitis of both lower extremities I87.2 Assessment & Plan Assessment & Plan (1) Routine medical exam: Code(s): Z00.00 - Encounter for general adult medical examination without abnormal findings Plan: Annual exam. Plan as below. Review past medical, surgical, social history as well as family history (2) Essential hypertension: Code(s): I10 - Essential (primary) hypertension Category: Medical Plan: Controlled. Continue current therapies (3) Osteoporosis: Comment: History: No history of fragility fracture. History of hyperparathyroidism followed by endocrinology. DXA 09/05 lowest T-score -2.9 left femoral neck,-2.7 left total hip, -1.4 L-spine, left forearm -2.6. VFA 02/2023 without compression fracture. Alendronate started 05/28/2023-01/2024 Dr. Michael did not refill at follow-up visit in deferred further management to endocrinology. Code(s): M81.0 - Age-related osteoporosis without current pathological fracture Category: Medical Qualifiers: Osteoporosis type: age-related Presence of current pathological fracture: without current pathological fracture Qualified Code(s): M81.0 - Age-related osteoporosis without current pathological fracture Plan: Continue with annual DEXA scans given concurrent letrozole use. Calcium and vitamin-D as well as weight-bearing exercise advised (4) Asthma-COPD overlap syndrome: Comment: SEVERE OBSTRUCTIVE LUNG DISEASE, WITH SIGNIFICANT IMPROVEMENT AFTER BRONCHODILATOR THERAPY( ASTHMA-COPD OVERLAP SYNDROME ) DOING VERY WELL WITH THE CURRENT MEDICATION ( WIXELA )AND HAS SUBJECTIVELY IMPROVED. HOWEVER SHE IS STILL GETS SHORT OF BREATH ON WALKING FAST OR CLIMBING STAIRS. HAS BEEN TREATED WITH A COURSE OF AZITHROMYCIN OVER THE LAST 1 WEEK, FOR POSSIBLE ACUTE RESPIRATORY INFECTION. SEEMS TO BE BACK TO HER BASELINE AT THIS TIME. Code(s): J44.9 - Chronic obstructive pulmonary disease, unspecified Category: Medical Plan: Stable. Continue maintenance inhalers, albuterol p.r.n.. Continue following with pulmonology (5) Gait instability: Code(s): R26.81 - Unsteadiness on feet Category: Medical Plan: And significant back pain related to kyphosis. She was referred for PT/OT through [facility] given homebound status as she is unable to drive secondary to her conditions. Continue with walking stick. Handicap placard form filled out (6) Venous stasis dermatitis of both lower extremities: Code(s): I87.2 - Venous insufficiency (chronic) (peripheral) Category: Medical Plan: No evidence of infection. Recommend ammonium lactate as well as compression stockings. Continue using Lasix for edema. Elevate legs at night. Plan Follow-up in the office in 4 months. Labs to be completed prior to visit Continue with screening mammograms, Pap smears, colonoscopies Continue following for annual skin exams and use sun protection Annual eye exams Wear seat belt in car Recommend regular exercise and healthy diet Continue following with breast surgery as well as pulmonology regarding breast cancer and lung cancer and remain consistent with screening procedures Orders: Orders Basic Metabolic Panel 4 Months E83.52 - Hypercalcemia, I10 - Essential (primary) hypertension, M81.0 - Age-related osteoporosis without current pathological fracture Liver Panel 4 Months E83.52 - Hypercalcemia, I10 - Essential (primary) hypertension, M81.0 - Age-related osteoporosis without current pathological fracture Lipid Panel 4 Months E83.52 - Hypercalcemia, I10 - Essential (primary) hypertension, M81.0 - Age-related osteoporosis without current pathological fracture TSH reflex Free T4 4 Months E83.52 - Hypercalcemia, I10 - Essential (primary) hypertension, M81.0 - Age-related osteoporosis without current pathological fracture Referrals [facility] Referral M17.0 - Bilateral primary osteoarthritis of knee, M40.209 - Unspecified kyphosis, site unspecified, R26.81 - Unsteadiness on feet Medications: New ammonium lactate 12% 1 appl topical BID 400 grams 1RF
[2025-01-06 16:53] VITALS: BP 138/50; PULSE 78; RESP 16; TEMP 36.2; O2SAT 95; BMI 25.8
--- OUTSIDE RECORDS SUMMARY | 2025-01-06 16:56 | XMS_ITS | Clinical Summary ---
Author Organization [facility] Address [address] [place], [place] [id number] Phone Care Team Providers Care School Psychology Professor Name Role Phone Joseph Valencia MD Primary Care Provider Allergies Active Allergy Reactions Criticality Noted Date Comments Ipratropium [place] Cough 04/25/2019 Penicillins Unknown 04/25/2019 Sulfa (Sulfonamide Antibiotics) Unknown 04/13 Medications ALPRAZolam (XANAX) 0.25 MG tablet Take 0.25 mg by mouth 3 (three) times a day as needed for anxiety. Active raNITIdine (ZANTAC) 150 MG tablet Take 150 mg by mouth 2 (two) times a day. Active albuterol 90 mcg/actuation inhaler Inhale 2 puffs into the lungs every 4 (four) hours as needed for wheezing. Active hydroCHLOROthia zide (MICROZIDE) 12.5 mg capsule Take 12.5 mg by mouth 2 (two) times a day. Active B-complex with vitamin C tablet Take 1 tablet by mouth daily. Active aspirin 81 MG EC tablet Take 81 mg by mouth daily. Active clobetasol (TEMOVATE) 0.05 % cream Apply topically 2 (two) times a day. Active biotin 1 mg tablet Take 1,000 mcg by mouth daily. Active Active Problems Problem Noted Date Diagnosed Date Malignant neoplasm of lower- inner quadrant of left breast in female, estrogen receptor positive 05/25/2021 Ductal carcinoma in situ (DCIS) of right breast 03/07/2019 Adenocarcinoma of right lung 07/05/1998 Ductal carcinoma in situ (DCIS) of left breast 0 07/01/1998 Overview (04/27/2019): DCIS and LCIS Lobular carcinoma in situ (LCIS) of left breast 07/01/1998 Family History Medical History Relation Comments Cancer Brother Cancer Maternal Aunt Cancer Mother Developmental disorder Sister Relation Status Comments Brother Unknown Maternal Aunt breast ca Mother breast cancer Sister Alive Social History Tobacco Use Types Packs/Day Years Used Date Smoking Tobacco: Former Cigarettes Q uit: 1998 Smokeless Tobacco: Never Alcohol Use Standard Drinks/Week Comments Not Currently 0 (1 standard drink = 0.6 oz pur e alcohol) Education Answer Date Recorded Are you interested in more education? Not on heavenly e 09/08/2022 Are you concerned about learning? Not on file 09/08/2022 No 09/08/2022 No 09/08/2022 Digital Access Answer Date Recorded No 10/07/2022 No 10/07/2022 No 10/07/2022 Reliable internet access at home? Not on file 10/07/2022 Device with a working camera? Not on file Comments Unknown Sex and Gender Information Value Date Recorded Sex Assigned at Not on file Legal Sex Female 9:41 AM EST Gender Identity Not on file Sexual Orientation Not on file Last Filed Vital Signs Vital Sign Reading Time Taken Comments Blood Pressure 127/74 06/17/2019 1:20 PM EST Pulse 86 06/17/2019 1:20 PM EST Temperature 37.1 C (98.8 F) 04/25/2019 3:45 PM EST Respiratory Rate 17 04/25/2019 3:45 PM EST Oxygen Saturation 98% 06/17/2019 1:20 PM EST Inhaled Oxygen Concentration - - Weight 67.6 kg (149 lb) 06/17/2019 1:20 PM EST Height 167.6 cm (5' 6 ) 04/25/2019 3:45 PM EST Body Mass Index 24.05 04/25/2019 3:45 PM EST Plan of Treatment Health Maintenance Due Date Last Done Comments LIPID PANEL 1949 POTASSIUM LEVEL 1949 DEPRESSION SCREENING 1961 SMOKING Hx and SMOKELESS TOBACCO SCREENING 1962 HEPATITIS C SCREENING 1967 ZOSTER VACCINES (1 of 2) 01/30/1968 COLOGUARD 1994 COLONOSCOPY 1994 COLORECTAL CANCER SCREENING 1994 FIT TEST 1994 FOBT 1994 SIGMOIDOSCOPY 1994 VIRTUAL COLONOSCOPY 1994 OSTEOPOROSIS SCREENING INITI AL (ONE-TIME) 2014 PNEUMOCOCCAL VACCINES (50+ years) (3 of 3 - PPSV23, PCV20 or PCV21) 02/01/2015 12/07/2014, 12/05/2006 COVID-19 VACCINE (2 - 2023-2 5 season) 2024 04/01/2021 RSV VACCINE (1 - 1-dose 75+ series) 01/30/2024 Adult Td,Tdap Booster 10/12/2024 10/12/2014 , 12/02/2012, 10/12/2002 HEPATITIS A VACCINES Aged Out No long er eligible based on patient's age to complete this topic HIB VACCINES Aged Out No longer eligi ble based on patient's age to complete this topic MENINGOCOCCAL VACCINES (ACWY) Aged Out No longer eligible based on patient's age to complete this topic MENINGOCOCCAL VACCINES (B) Aged Out N o longer eligible based on patient's age to complete this topic Medical Devices Not on file Insurance MEDICARE HMO REPLACEMENT [employer] [place] MED[employer] HMO REPLACEMENT MEDICARE HMO REPLACEMENT MEDICARE HMO REPLACEMENT MEDICARE HMO REPLACEMENT [employer] [place] MED[employer] H[employer]ACEMENT [employer] [place] MEDICARE HMO REPLACEMENT MEDICARE HMO REPLACEMENT [employer] [place] MEDIC[employer] HMO REPLACEMENT Care Teams School Psychology Professor Relationship Specialty Start Date End Date Joseph Valencia MD [address] [place] [address] Dr WREN [address] [place] [id number] PCP - General Internal Medicine 04/25/19 Additional Source Comments The information contained in this document represents components of the legal health record. It is not the complete legal health record.[facility]
--- OUTSIDE RECORDS SUMMARY | 2025-01-06 16:56 | XMS_ITS | Encounter Summary ---
Author Organization [facility] Address [address] [place] [address] Phone Care Team Providers Care Tombstone Polisher Name Role Phone Joseph Valencia MD Primary Care Provider Encounter Details Date Type Department Care Team (Late st Contact Info) Description 03/28/2021 Ancillary Orders [facility],Outside Imaging [address] [place], [place] [id number] System, Provider Not In, [place] [address] Social History Tobacco Use Types Packs/Day Years [...] documented as of this encounter Results * US Breast Outside (No Interpretation) (03/11/2021 12:05 AM EDT) Narrative SYSTEMGENERATED, DOCUMENTATION - 03/28/2021 12:41 PM EST This study is for PACS storage only and not for interpretation. us Provider Not In System PhD IMG OUTSIDE IMAGING W /OUT INTERPRETATION Final Result * Mammogram Outside (No Interpretation) (03/11/2021 12:00 AM EDT) Narrative SYSTEMGENERATED, DOCUMENTATION - 03/28/2021 12:40 PM EST This study is for PACS storage only and not for interpretation. us Provider Not In System PhD IMG OUTSIDE IMAGING W /OUT INTERPRETATION Final Result documented in this encounter Visit Diagnoses Not on filedocumented in this encounter Care Teams Tombstone Polisher Relationship Specialty Start Date End Date Joseph Valencia MD [address] [place] [address] Dr [place], [place] [address] PCP - General Internal Medicine 04/25/19 documented as of this encounter Additional Source Comments The information contained in this document represents components of the legal health record. It is not the complete legal health record.[facility]
--- OUTSIDE RECORDS SUMMARY | 2025-01-06 16:56 | XMS_ITS | Patient Health Record ---
Author Organization George Dias III, MD Address [address] [place] [address] Care Team Providers Care Oyster Unloader Name Role Phone Joseph Valencia MD Primary Care Provider George Ren Unavailable [phone] Allergies Allergen (clinical drug ingredient) Drug/Non Drug [...] Problem Status W/U Status Risk Notes Problem 4409541 Former smoker (Z87.891) Active confirmed She has been abstinent since 1998. She has a plan to prevent relapse in times of stress and illness. Problem Fibromyalgia (919091765) Fibromyalgia (M79.7) Active confirmed Her symptoms ar e stable and unchanged. Problem 244123095 Overweight (E66.3) Active confirmed This problem duron s resolved and will be removed from her problem list Problem 69979116 Allergy to sulfa drugs (Z88.2) Active confirmed Problem 188008955 GERD without esophagitis (K21.9) Active confirmed Her reflux symptoms are well controlled with [id number] medication. Problem 94730610 Essential hypertension (I10) Active confirmed Her blood pressure is 134/71. She is stable and no change in her regimen was needed. I recommended continued sodium restriction. Problem 54192493 Penicillin allergy (Z88.0) Active confirmed Problem 544159802616762 Hematochezia (K92.1) Active confirmed #4 days. She isn't visible streaks of red blood in her stool. She will be referred to her gastroenterologi st for colonoscopy. 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 Problem 651706283 Renal cyst (N28.1) Active confirmed Diagnosis will be followed. 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 She has begun on anastrozole. She will have a radiation therapy consultation. Because of diffuse aches and pains. We have temporarily stopped anastrozole. Problem Psoriatic arthritis (397913062) Psoriatic arthritis (L40.50) Active confirmed She has [...] Date Provider Diagnosis George Dias III, MD [address] [place] [address] [place] [address] 03/07/2024 George Dias Ductal carcinoma in situ [...] Her reflux symptoms are well controlled with [id number] medication. 03/07/2024 Former smoker (ICD-10 - Z87.891) [...] Insured Coverage Start Date Coverage End Date [facility] [address] [place] [address] [id number] DAJA POWELL Self - patient is the [...] l right kidney former smoker since 1998 [id number] son [id number] invasive ductal carcinoma left breast April [id number] DCIS right breast, surgery and RT Breast Cancer in 2021, High Blood Pressu re, Ulcerated Colitis Surgical History Surgery Date(Month/Year) Breast cancer surgery in 2021 2021 Lumpectomy and sentinel node biopsy left breast, [facility], Dr. Mixon 04/2021 multiple negative [...]
--- OUTSIDE RECORDS SUMMARY | 2025-01-06 16:56 | XMS_ITS | Encounter Summary ---
Author Organization [facility] Address [address] [place] [address] Phone Care Team Providers Care Data Assistant Name Role Phone Joseph Valencia MD Primary Care Provider Encounter Details Date Type Department Care Team (Late st Contact Info) Description 06/20/2021 Ancillary Orders [facility],Outside Imaging [address] [place] [address] System, Provider [place] In, [place] [address] Social History Tobacco Use Types Packs/Day Years [...] encounter Results * Mammogram Outside (No Interpretation) (05/09/2021 12:00 AM EST) Narrative SYSTEMGENERATED, DOCUMENTATION - 06/20/2021 4:01 PM EST This study is for PACS storage only and not for interpretation. us Provider Not In System PhD IMG OUTSIDE IMAGING W /OUT INTERPRETATION Final Result documented in this encounter Visit Diagnoses Not on filedocumented in this encounter Care Teams Data Assistant Relationship Specialty Start Date End Date Joseph Valencia MD [address] [place] [address] [place] [address] PCP - General Internal Medicine 12/13/19 documented as of this encounter Additional Source Comments The information contained in this document represents components of the legal health record. It is not the complete legal health record.[facility]
--- OUTSIDE RECORDS SUMMARY | 2025-01-06 16:56 | XMS_ITS | Encounter Summary ---
Author Organization [facility]ly [facility] Address [address] [facility] [address] [place] [address] Phone Care Team Providers Care Communications Scientist Name Role Phone Joseph Valencia MD Primary Care Provider Encounter Details Date Type Department Care Team (Late st Contact Info) Description 06/20/2021 Ancillary Orders [facility],Outside Imaging [address] [place] [address] System, Provider [place] In, [place] [address] Social History Tobacco Use Types Packs/Day Years [...] on filedocumented in this encounter Care Teams Communications Scientist Relationship Specialty Start Date End Date Joseph Valencia MD [address] [place] [address] [place] [address] PCP - General Internal Medicine 12/13/19 documented as of this encounter Additional Source Comments The information contained in this document represents components of the legal health record. It is not the complete legal health record.[facility]
--- OUTSIDE RECORDS SUMMARY | 2025-01-06 16:56 | XMS_ITS | Clinical Summary ---
Author Organization [facility] Address [address] [facility] [address] 0 [place] [address] Phone Care Team Providers Care Bulk Fluids Handler Name Role Phone Joseph Valencia MD Primary Care Provider [phone] Allergies Active Allergy Reactions Criticality Noted Date [...] 12/17/2024 Refill [facility] [address] [place] [address] Carlos Manuel Wagoner MD from Last 3 [...] [facility] [address] [place] [address] Carlos Manuel Wagoner MD [address] [facility] [address] [place] [address] Health Maintenance Due Date Last [...] patient's age to complete this topic Insurance [facility] Care Teams Bulk Fluids Handler Relationship Specialty Start Date End Date Joseph Valencia MD [address] [place], [place] PCP - General Internal Medicine 08/02/23
--- OUTSIDE RECORDS SUMMARY | 2025-01-06 16:57 | XMS_ITS | Patient Health Record ---
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) Active confirmed Plan Of Treatment Pending Test Test Name Order Date Ultrasound : Extremity Ultrasound Non-Va sc 04/12/2018 X ray : Foot, left 3V 03/22/2018 X ray : Foot, right 3V 03/22/2018 34146- Ganglion Cyst Injection/Aspiratio n 03/22/2018 Insurance Providers Payer Name Payer Address Payer Phone Subscriber Number Group Number Insured Name Patient Relationship to Insured Coverage Start Date Coverage End Date [employer] [place] [employer] Advantage One [facility] [address] [facility] [place] [address] [id number] Eliza Shields Self - patient is the insured Medical (General) History Medical History History ICD Code Anxiety Back,Hip,and Knee pain Cancer Hiatal hernia Sciatica Psoriasis/eczema Stomach ulcer hyperparathyroidism Surgical History Surgery Date(Month/Year) lung lobectomy right and left 1998
--- OUTSIDE RECORDS SUMMARY | 2025-01-06 16:57 | XMS_ITS | Encounter Summary ---
Author Organization [facility] Address [address] [place] [address] Phone Care Team Providers Care Inside Sales Supervisor Name Role Phone Joseph Valencia MD Primary Care Provider Encounter Details Date Type Department Care Team (Late st Contact Info) Description 04/23/2019 Ancillary Orders [facility],Outside Imaging [address] [place] [address] System, Provider [place] In, [place] [address] Social History Tobacco Use Types Packs/Day Years Used Date Smoking Tobacco: Never Assessed Comments Unknown Sex and Gender Information Value Date Recorded Sex Assigned at Not on file Legal Sex Female 9:41 AM EST Gender Identity Not on file Sexual Orientation Not on file documented as of this encounter Plan of Treatment Not on file documented as of this encounter Results * XR Chest Outside (No Interpretation) (04/01/2019 12:00 AM EST) Narrative SYSTEMGENERATED, DOCUMENTATION - 04/23/2019 11:16 AM EST This study is for PACS storage only and not for interpretation. us Provider Not In System PhD IMG OUTSIDE IMAGING W /OUT INTERPRETATION Final Result documented in this encounter Visit Diagnoses Not on filedocumented in this encounter Care Teams Inside Sales Supervisor Relationship Specialty Start Date End Date Joseph Valencia MD [address] [place] [address] [place] [address] PCP - General Internal Medicine 04/25/19 documented as of this encounter Additional Source Comments The information contained in this document represents components of the legal health record. It is not the complete legal health record.[facility]
--- OUTSIDE RECORDS SUMMARY | 2025-01-06 16:57 | XMS_ITS | Encounter Summary ---
Author Organization [facility]ly [facility] Address [address] [facility] [address] [place] [address] Phone Care Team Providers Care Director Software Development Name Role Phone Joseph Valencia MD Primary Care Provider Encounter Details Date Type Department Care Team (Late st Contact Info) Description 04/11/2019 Ancillary Orders [facility],Outside Imaging [address] [place], [place] [id number] System, Provider [place] In, [place] [address] Social History Tobacco Use Types Packs/Day Years [...] encounter Results * Mammogram Outside (No Interpretation) (03/26/2019 12:00 AM EST) Narrative SYSTEMGENERATED, DOCUMENTATION - 04/11/2019 1:33 PM EST This study is for PACS storage only and not for interpretation. us Provider Not In System PhD IMG OUTSIDE IMAGING W /OUT INTERPRETATION Final Result * Mammogram Outside (No Interpretation) (03/07/2019 12:00 AM EDT) Narrative SYSTEMGENERATED, DOCUMENTATION - 04/11/2019 1:34 PM EST This study is for PACS storage only and not for interpretation. us Provider Not In System PhD IMG OUTSIDE IMAGING W /OUT INTERPRETATION Final Result * Mammogram Outside (No Interpretation) (02/26/2019 12:00 AM EDT) Narrative SYSTEMGENERATED, DOCUMENTATION - 04/11/2019 1:34 PM EST This study is for PACS storage only and not for interpretation. us Provider Not In System PhD IMG OUTSIDE IMAGING W /OUT INTERPRETATION Final Result * US Upper/Lower Extremity Non-Vascular Outside (No Interpretation) (04/29/2018 12:05 AM EST) Narrative SYSTEMGENERATED, DOCUMENTATION - 04/11/2019 1:36 PM EST This study is for PACS storage only and not for interpretation. us Provider Not In System PhD IMG OUTSIDE IMAGING W /OUT INTERPRETATION Final Result * US Upper/Lower Extremity Non-Vascular Outside (No Interpretation) (04/29/2018 12:00 AM EST) Narrative SYSTEMGENERATED, DOCUMENTATION - 04/11/2019 1:35 PM EST This study is for PACS storage only and not for interpretation. us Provider Not In System PhD IMG OUTSIDE IMAGING W /OUT INTERPRETATION Final Result * Mammogram Outside (No Interpretation) (02/21/2018 12:00 AM EDT) Narrative SYSTEMGENERATED, DOCUMENTATION - 04/11/2019 1:37 PM EST This study is for PACS storage only and not for interpretation. us Provider Not In System PhD IMG OUTSIDE IMAGING W /OUT INTERPRETATION Final Result * Mammogram Outside (No Interpretation) (02/22/2017 12:00 AM EDT) Narrative SYSTEMGENERATED, DOCUMENTATION - 04/11/2019 1:37 PM EST This study is for PACS storage only and not for interpretation. us Provider Not In System PhD IMG OUTSIDE IMAGING W /OUT INTERPRETATION Final Result * Mammogram Outside (No Interpretation) (07/24/2016 12:00 AM EDT) Narrative SYSTEMGENERATED, DOCUMENTATION - 04/11/2019 1:38 PM EST This study is for PACS storage only and not for interpretation. us Provider Not In System PhD IMG OUTSIDE IMAGING W /OUT INTERPRETATION Final Result documented in this encounter Visit Diagnoses Not on filedocumented in this encounter Care Teams Director Software Development Relationship Specialty Start Date End Date Joseph Valencia MD [address] [place] [address] [place] [address] PCP - General Internal Medicine 04/25/19 documented as of this encounter Additional Source Comments The information contained in this document represents components of the legal health record. It is not the complete legal health record.[facility]
--- OUTSIDE RECORDS SUMMARY | 2025-01-06 16:57 | XMS_ITS | Patient Health Record ---
Author Organization [facility] Address [address] [place] [address] Care Team Providers Care Partnership Marketing Manager Name Role Phone APOORVA HILL Primary Care Provider George Valente Unavailable [phone] George Dias MD Unavailable Unavailable Allergies Allergen (clinical drug ingredient) Drug/Non Drug Allergy documented on EMR Reaction Allergy Type Onset Date Status codeine Codeine Unknown Drug Allergy Active Substance with sulfonamide structure and antibacterial mechanism of action (substance) Sulfa (uncoded) Unknown Allergy Active Penicillin (uncoded) Unknown Allergy Active Results Component Value Reference Range Notes Pathology (Not yet reviewed by provider) Interpretation: Performing Lab:[facility], [address] [place] [id number] Notes/Report: Reason For Referral No Information Medications Medication SIG (Take, Route, Frequency, Duration) Notes Start Date End Date Status Tylenol Extra Strength Active Carvedilol 3.125 MG PLEASE SEE ATTACHED FOR DETAILED DIRECTIONS Oral for 90 Active Lanx Active Letrozole 2.5 MG Oral for 90 [...] Problem Status W/U Status Risk Notes Problem 91360073 Epigastric abdominal pain (R10.13) Active confirmed Problem Screening for malignant neoplasm of colon (715425292) Encounter for screening for malignant neoplasm of colon (Z12.11) Active confirmed Problem History of polyp of colon (situation) (980575817) Personal history of colonic polyps (Z86.010) Active confirmed Problem Diverticular disease of colon (757261699) Diverticulosis of large intestine without perforation or abscess without bleeding (K57.30) Active confirmed Problem 011704935 Gastroesophageal reflux disease, esophagitis presence not specified (K21.9) Active confirmed Problem 61592680 Rectal bleed (K62.5) Active confirmed Problem Benign neoplasm of colon (96144168) 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 Problem Ulcerative colitis (99374168) Ulcerative colitis (K51.90) Active confirmed Problem Proctitis (6295967) 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) Active confirmed Problem Diverticulosis of colon (576759886) Diverticulosis of colon (K57.30) Active confirmed Vital Signs Temperature 98.6 degrees Fahrenheit 06/11/2024 Blood pressure diastolic 77 mm Hg 10/15/2024 Height 65 in 10/15/2024 Blood pressure systolic 111 mm Hg 10/15/2024 Weight 155 lbs 10/15/2024 BMI 25.79 kg/m2 10/15/2024 Procedures Procedure Date Ordered Date Performed Result Body Sit e COLONOSCOPY 10/15/2024 N/A Encounters Encounter Location Date Provider Diagnosis [facility] Outpatient [address] [place] [id number] 12/01/2024 George Nguyen [facility] [address] [place] [phone] 06/11/2024 George Nguyen Ulcerative colitis K51.90 ; Encounter for screening for malignant neoplasm of colon Z12.11 and Personal history of colonic polyps Z86.010 [facility] [address] [place] [phone] 10/15/2024 George Nguyen Rectal bleed K62.5 ; Ulcerative colitis K51.90 ; Gastroesophageal reflux disease, esophagitis presence not specified K21.9 ; Tubulovillous adenoma of colon K63.5 and Encounter for screening for malignant neoplasm of colon Z12.11 [facility] [address] [place] [phone] 02/02/2024 George Nguyen [facility] [address] [place] [phone] 02/06/2024 George Nguyen [facility] [address] [place] [phone] 02/11/2024 George Nguyen [facility] [address] [place] [phone] 03/05/2024 George Nguyen [facility] [address] [place] [phone] 04/02/2024 George Carey [facility] [address] [place] [address] 06/17/2024 George Carey [facility] [address] [place] [address] 10/16/2024 George Carey [facility] [address] [place] [address] 12/02/2024 George Nguyen Assessments Encounter Date Diagnosis (ICD Code) Assessment Notes Treatment Notes Treatment Clinical Notes Section Notes 06/11/2024 Encounter for screening for malignant neoplasm [...] keep you advised of her progress. 10/15/2024 Tubulovillous adenoma of colon (ICD-10 - [...] Name:George Nguyen , 02/03/2025 02:40:00 PM, [address] [facility], [address], [place], [address], Insurance Providers Payer Name Payer Address Payer Phone Subscriber Number Group Number Insured Name Patient Relationship to Insured Coverage Start Date Coverage End Date [facility] [address] [place] [phone] [id number] DAJA YOUNG Self - patient is the insured Medical (General) History Medical History History ICD Code Lung cancer - 1998--Removed upper right lobe Breast cancer-1998 Left--surgery and XRT ; and 03/2019 Right--surgery and XRT GERD Overactive parathyroid Anxiety Arthritis Colonoscopy in 2004 was neg. except for a hyperplastic polyp Denies UT,DM,CVA,renal disease COPD Colonscopy in 01/2020 with a [...] Surgery Date(Month/Year) Parathyroid surgery scheduiled for at [facility] Vein surgery left leg - Dr. Aponte 01/2023 Lasik surgery on both eyes Cateracts left and right -Dr. Newton Right inguinal hernia repair Lumpectomies right and left breast for cancer with left sided node dissection RUL lung resection for cancer
== END 2025-01-06 17:30 | disposition home or self-care (01) ==
LOC: HO.HMCHD 16:41
PROVIDERS: PCP Internal Medicine; Visit Provider Physician Assistant
DX: Z00.00 Encounter for general adult medical examination without abnormal findings (principal); I10 Essential (primary) hypertension; M81.0 Age-related osteoporosis without current pathological fracture; J44.9 Chronic obstructive pulmonary disease, unspecified; R26.81 Unsteadiness on feet; I87.2 Venous insufficiency (chronic) (peripheral)

== ENCOUNTER → 2025-01-06 16:40 | Outpatient (BNVA) | payer MEDICARE, SELFPAY | PROVIDERS: PCP Internal Medicine; Visit Provider Physician Assistant | DX: Z00.00 Encounter for general adult medical examination without abnormal findings (principal); I10 Essential (primary) hypertension; M81.0 Age-related osteoporosis without current pathological fracture; J44.9 Chronic obstructive pulmonary disease, unspecified; R26.81 Unsteadiness on feet; I87.2 Venous insufficiency (chronic) (peripheral); E21.3 Hyperparathyroidism, unspecified; F41.9 Anxiety disorder, unspecified; Z85.3 Personal history of malignant neoplasm of breast; Z85.118 Personal history of other malignant neoplasm of bronchus and lung; Z87.891 Personal history of nicotine dependence | CPT/HCPCS: 99212; 99397 ==

== ENCOUNTER 2025-02-03 16:10 | Outpatient (REF) | payer MEDICARE, SELFPAY ==
--- OUTSIDE RECORDS SUMMARY | 2023-09-03 11:15 | XMS_ITS ---
Author Organization George Dias III, MD Address [address] [place] [address] Care Team Providers Care Chicken Vaccinator Name Role Phone Joseph Valencia MD Primary Care Provider Dr. George Ren III Unavailable Allergies Allergen (clinical drug ingredient) Drug/Non Drug Allergy documented on EMR Reaction Allergy Type Onset Date Status sulfacetamide Sulfacetamide Unknown Drug Allergy Active Penicillin Unknown Drug Allergy Active codeine Codeine stomach upset Drug Allergy Act janet REASON FOR VISIT Carcinoma of the left breast, Bilateral DCIS, Hypertension, Psoriatic arthritis Medications Medication SIG (Take, Route, Frequency, Duration) Notes Start Date End Date Status Furosemide 20 MG TAKE 1 TABLET BY KAROL TH EVERY DAY FOR 30 DAYS Active Letrozole 2.5 MG TAKE 1 TABLET BY KAROL TH EVERY DAY FOR 30 DAYS Active Biotin 1000 MCG 1 tablet Orally Once a day Active Omeprazole 20 MG 1 capsule 30 minutes before morning meal Orally Once a day Active Aspir-Low 81 MG 1 tablet Orally Once a day Active hydroCHLOROthiazide 12.5 MG 1 capsule in the morning Orally Once a day Active Albuterol Sulfate HFA 108 (9 0 Base) MCG/ACT INHALE 2 PUFFS BY MOUTH EVERY 4-6 HOURS NEEDED FOR WHEEZING Inhalation Active Carvedilol 3.125 MG 2 tablet with food Oral Twice a day Active Xanax 0.25 MG 1 tablet Orally Thre e times a day Active ALPRAZolam 0.5 MG 1/2 tablet Orally 4 times a day Active Potassium Chloride Lizzie ER 1 0 MEQ 1 tablet with food Orally Twice a day Active Mesalamine 1000 MG 1 suppository at bedtime Rectal Once a day Active Clobetasol Propionate 0.05 % 1 applicati on Externally Twice a day Active Multi Vitamin - 1 tablet Orally Once a day Active Iron 28 MG 1 tablet Orally Thre e times a Week Active Tylenol Extra Strength 500 MG 1 tablet a s needed Orally every 6 hrs Active Social History Tobacco Use: Social History Observation Description Date Details (start date - stop date) Former Smoker NA - NA Tobacco Use/Smoking Question Answer Notes Patient is a former smoker How long has it been since you last smoked? > 10 years Additional Findings: Tobacco Non-User Ex-cigaret te smoker Vital Signs Temperature 97.9 degrees Fahrenheit 09/03/19 24 Blood pressure systolic 139 mm Hg 09/03/19 24 Blood pressure diastolic 66 mm Hg 024 Heart Rate 87 /min 09/03/2023 Height 66 in 09/03/2023 Weight 146 lbs 09/03/2023 BMI 23.56 kg/m2 09/03/2023 Encounters Encounter Location Date Provider Diagnosis George Dias III, MD [address] [place] [address] [place] [address] 09/03/2023 George Dias Ductal carcinoma in situ (DCIS) of right breast D05.11 ; Ductal carcinoma in situ (DCIS) of left breast D05.12 ; Overweight E66.3 ; Fibromyalgia M79.7 ; Hyperglycemia R73.9 ; GERD without esophagitis K21.9 ; Essential hypertension I10 ; Former smoker Z87.891 ; Psoriatic arthritis L40.50 and Adenocarcinoma of right lung C34.91 Assessments Encounter Date Diagnosis (ICD Code) Assessment Notes Treat ment Notes Treatment Clinical Notes 09/03/2023 Ductal carcinoma in situ (DCIS) of right breast (ICD-10 - D05.11) Her lumpectomy scar is well-healed and there are no new findings. 09/03/2023 Ductal carcinoma in situ (DCIS) of left breast (ICD-10 - D05.12) This was detected in 1998 and treated then. I recurrent cancer in her breast is recently been detected.Her examination today was unremarkable 09/03/2023 Overweight (ICD-10 - E66.3) This problem has resolved and will be removed from her problem list 09/03/2023 Fibromyalgia (ICD-10 - M79.7) Her symptoms are stable and unchanged. 09/03/2023 Hyperglycemia (ICD-1 0 - R73.9) Her blood pressure is controlled and no change in her regiimen as needed. 09/03/2023 GERD without esophagitis (ICD-10 - K21.9) Her reflux symptoms are well controlled with [id number] medication. 09/03/2023 Essential hypertension (ICD-10 - I10) Her blood pressure is 140/80. She is stable and no change in her regimen was needed. I recommended continued sodium restriction. 09/03/2023 Former smoker (ICD-1 0 - Z87.891) She has been abstinent since 1998. She has a plan to prevent relapse in times of stress and illness. 09/03/2023 Psoriatic arthritis (ICD-10 - L40.50) She has mild arthritic changes in her fingers. No change in her therapy as needed. 09/03/2023 Adenocarcinoma of right lung (ICD-10 - C34.91) There was no sign of her recurrent cervical new primary today. Plan Of Treatment Medication Medication Name Sig Start Date Stop Date Notes Furosemide 20 MG TAKE 1 TABLET BY KAROL TH EVERY DAY FOR 30 DAYS Letrozole 2.5 MG TAKE 1 TABLET BY KAROL TH EVERY DAY FOR 30 DAYS Biotin 1000 MCG 1 tablet Orally Once a day Omeprazole 20 MG 1 capsule 30 minutes before morning meal Orally Once a day Aspir-Low 81 MG 1 tablet Orally Once a day hydroCHLOROthiazide 12.5 MG 1 capsule in the morning Orally Once a day Albuterol Sulfate HFA 108 (9 0 Base) MCG/ACT INHALE 2 PUFFS BY MOUTH EVERY 4-6 HOURS NEEDED FOR WHEEZING Inhalation Carvedilol 3.125 MG 2 tablet with food O ral Twice a day Xanax 0.25 MG 1 tablet Orally Thre e times a day ALPRAZolam 0.5 MG 1/2 tablet Orally 4 times a day Potassium Chloride Lizzie ER 10 MEQ 1 tabl et with food Orally Twice a day Mesalamine 1000 MG 1 suppository at bed time Rectal Once a day Clobetasol Propionate 0.05 % 1 applicati on Externally Twice a day Multi Vitamin - 1 tablet Orally Once a day Iron 28 MG 1 tablet Orally Thre e times a Week Tylenol Extra Strength 500 MG 1 tablet a s needed Orally every 6 hrs Pending Test Test Name Order Date PROFILE, FASTING (COMPREHENSIVE METABOLI C) 09/03/2023 MICROALBUMIN, RANDOM 09/03/2023 CBC WITH AUTO DIFF 09/03/2023 Hemoglobin A1c 09/03/2023 Next Appt Details Follow Up: 6 Months, Reason: OV Progress Notes * DAJA PEACE PDOB: (73 yo F)Acc No.[id number]:09/03/2023 Progress Notes Patient: DAJA HAAS Provider: Satinder Dias MD :1950 A ge:73 Y S ex:Female Date:09/03/2023 Address:[address] [place] [address], [id number] Pcp:Joseph Valencia MD Subjective: * Chief Complaints: * C arcinoma of the left breastBilateral DCISHypertensionPsoriatic arthritis * HPI: C OVID-19 Screening: She returns for evaluation and management of her adjuvant endocrine therapy or invasive carcinoma left breast and bilateral DCIS. She continues on letrozole 2.5 mg daily without side effects. She has been told she needs surgery for hyperparathyroidismAnd has been referred to endocrinology. She is seeing a drywall installer as well as a vascular surgeon for peripheralVascular disease.She has remained in remission from the breast cancer. No changes in her regimen were made today. Questions H ave you experienced fever, chills, cough, sore throat, shortness of breath, difficulty breathing, muscle aches, loss of taste or smell? N o H ave you been exposed to the virus within the last 10 days? N o H ave you travelled internationally in the last 10 days? N o H ave you been exposed to COVID-19 in the past? Y es * ROS: G eneral/Constitutional: pain N julio with range of motion, otherwise only normal aches and pains. C hills d enies. F atigue a dmits. F ever d enies. ? E NT: Decreased hearing d enies. R espiratory: Cough d enies. C ardiovascular: Chest pain with exertion d enies. D yspnea on exertion?denies. S hortness of breath d enies. G astrointestinal: Constipation o ccasional. D ecreased appetite d enies. D iarrhea d enies. H eartburn d enies. N ausea d enies. R ectal bleeding d enies. V omiting d enies. H ematology: bruising d enies. p etechiae d enies. S wollen glands n one have been noted. G enitourinary: Frequent urination a t night. M usculoskeletal: Muscle aches d enies. P ainful joints F ingers, Neck. S ciatica d enies. W eakness d enies. S kin: Itching d enies. R horacio d enies. S kin lesion(s)?denies. N eurologic: Difficulty speaking d enies. D izziness d enies.?Headache d enies. L ow back pain d enies. P sychiatric: Depressed mood d enies. * Medical History: * Surgical History: r ight upper lobectomy, stage I adenocarcinoma of, Dr. Scherer 1998Lumpectomy and sentinel nodes left breast major veins removed right leg 1 major vein removed- Dr. Lo 36 weeks radiation . Left breast 11/1998Right breast lumpectomy with 2 needle localization (DP) 03/2019multiple negative endometrial biopsies Lumpectomy and sentinel node biopsy left breast, [facility], Dr. Mixon 04/2021 * Hospitalization/Major Diagno stic Procedure: D enies Past Hospitalization * Family History: F ather: 68 yrs, COPD, hypertension, CVD, diagnosed with CVD, HTN. M other: , diagnosed with Cancer, CVD. S iblings: unknown. M aternal Grand Father: alive, diagnosed with DM. M aternal aunt: diagnosed with Cancer. 1 brother(s) , 2 sister(s) . 1 son(s) . .? Her father of cardiovascular disease and COPD and had an enlarged heart with hypertension. Mother after sunny breast cancer at the age of 64. A brother has lung cancer that metastasized to brain. A maternal aunt (or causing) has a history of breast cancer. A maternal grandfather was diabetic. Her son is healthy and well. * Social History: T obacco Use: T obacco Use/Smoking P atient is a f ormer smoker H ow long has it been since you last smoked??> 10 years A dditional Findings: Tobacco Non-User E x-cigarette smoker S he has been to Saul for 49 years. They have 1 son. Her sister with dementia, lives with them. She is retired and no longer smokes cigarettes. * Medications: T akingTylenol Extra Strength 500 MG Tablet 1 tablet as needed Orally every 6 hrsIron 28 MG Tablet 1 tablet Orally Three times a WeekMulti Vitamin - Tablet 1 tablet Orally Once a dayClobetasol Propionate 0.05 % Ointment 1 application Externally Twice a dayMesalamine 1000 MG Suppository 1 suppository at bedtime Rectal Once a dayPotassium Chloride Lizzie ER 10 MEQ Tablet Extended Release 1 tablet with food Orally Twice a dayOmeprazole 20 MG Capsule Delayed Release 1 capsule 30 minutes before morning meal Orally Once a dayFurosemide 40 MG Tablet 1 tablet Orally Once a dayALPRAZolam 0.5 MG Tablet 1/2 tablet Orally 4 times a dayCarvedilol 3.125 MG Tablet 2 tablet with food Oral Twice a dayLetrozole 2.5 MG Tablet 1 tablet Orally Once a dayAlbuterol Sulfate HFA 108 (90 Base) MCG/ACT Aerosol Solution INHALE 2 PUFFS BY MOUTH EVERY 4-6 HOURS NEEDED FOR WHEEZING Inhalation Aspir-Low 81 MG Tablet Delayed Release 1 tablet Orally Once a dayTaking Tylenol Extra Strength 500 MG Tablet 1 tablet as needed Orally every 6 hrsTaking Iron 28 MG Tablet 1 tablet Orally Three times a WeekTaking Multi Vitamin - Tablet 1 tablet Orally Once a dayTaking Clobetasol Propionate 0.05 % Ointment 1 application Externally Twice a dayTaking Mesalamine 1000 MG Suppository 1 suppository at bedtime Rectal Once a dayTaking Potassium Chloride Lizzie ER 10 MEQ Tablet Extended Release 1 tablet with food Orally Twice a dayTaking Omeprazole 20 MG Capsule Delayed Release 1 capsule 30 minutes before morning meal Orally Once a dayTaking Furosemide 40 MG Tablet 1 tablet Orally Once a dayTaking ALPRAZolam 0.5 MG Tablet 1/2 tablet Orally 4 times a dayTaking Carvedilol 3.125 MG Tablet 2 tablet with food Oral Twice a dayTaking Letrozole 2.5 MG Tablet 1 tablet Orally Once a dayTaking Albuterol Sulfate HFA 108 (90 Base) MCG/ACT Aerosol Solution INHALE 2 PUFFS BY MOUTH EVERY 4-6 HOURS NEEDED FOR WHEEZING Inhalation Taking Aspir-Low 81 MG Tablet Delayed Release 1 tablet Orally Once a dayDiscontinuedXanax 0.25 MG Tablet 1 tablet Orally Three times a dayhydroCHLOROthiazide 12.5 MG Capsule 1 capsule in the morning Orally Once a dayBiotin 1000 MCG Tablet 1 tablet Orally Once a dayMedication List reviewed and reconciled with the patientDiscontinued Xanax 0.25 MG Tablet 1 tablet Orally Three times a dayDiscontinued hydroCHLOROthiazide 12.5 MG Capsule 1 capsule in the morning Orally Once a dayDiscontinued Biotin 1000 MCG Tablet 1 tablet Orally Once a dayMedication List reviewed and reconciled with the patient * Allergies: P enicillinSulfacetamideCodeine: stomach upsetno[Allergies Verified] Objective: * Vitals: H t: 66, Wt:146, BMI:23.56, BP:139/66, HR:87, Temp:97.9, Wt-k.22. * Examination: G eneral Examination: GENERAL APPEARANCE: p leasant, well nourished, well developed, in no acute distress, calm and relaxed , woman. HEAD: a traumatic, normocephalic. EYES: e kimberly, perrla, anicteric, conjugate. EARS: n ormal. NOSE: s eptum intact. ORAL CAVITY: n ormal, unremarkable. NECK/THYROID: n o jugular venous distention, no carotid bruit, thyroid normal, Moderate torticollis to the left. LYMPH NODES: n o enlarged lymph nodes,spleen normal. SKIN: n o suspicious lesions, anicteric. HEART: n o clicks, gallops, murmurs, or rubs, regular rhythm, S1, S2 normal, no s3, or vascular bruits. LUNGS: c lear to auscultation , no wheezes, rales, rhonchi , good air movement, Old healed right thoracotomy scar with drain sites. BREASTS: n o masses palpable bilaterally , no dimpling , no discharge , no drainage , nontender , symmetrical, Axillary scar well-healed, bilateral lumpectomy scars healed, no new findings. ABDOMEN: b owel sounds normal, no ascites, no organomegaly, no mass. RECTAL EXAM: n ot examined. MUSCULOSKELETAL: e xtremities unremarkable, no clubbing, cyanosis or edema, Arthritic changes fingers. PERIPHERAL PULSES: n ormal. NEUROLOGIC: a lert and oriented, cranial nerves 2-12 grossly intact, deep tendon reflexes 2+ symmetrical, motor strength normal upper and lower extremities, sensory exam intact. PSYCH: a lert, oriented. Assessment: * Assessment: 1. D uctal carcinoma in situ (DCIS) of right breast - D05.11 (Primary), Her lumpectomy scar is well-healed and there are no new findings. 2 . D uctal carcinoma in situ (DCIS) of left breast - D05.12, This was detected in 1998 and treated then. I recurrent cancer in her breast is recently been detected.Her examination today was unremarkable 3 . O verweight - E66.3, This problem has resolved and will be removed from her problem list 4 . F ibromyalgia - M79.7, Her symptoms are stable and unchanged. 5 . H yperglycemia - R73.9, Her blood pressure is controlled and no change in her regiimen as needed. 6 . G ERD without esophagitis - K21.9, Her reflux symptoms are well controlled with [id number] medication. 7 . E ssential hypertension - I10, Her blood pressure is 140/80. She is stable and no change in her regimen was needed. I recommended continued sodium restriction. 8 . F ormer smoker - Z87.891, She has been abstinent since 1998. She has a plan to prevent relapse in times of stress and illness. 9 . P soriatic arthritis - L40.50, She has mild arthritic changes in her fingers. No change in her therapy as needed. 10. A denocarcinoma of right lung - C34.91, There was no sign of her recurrent cervical new primary today. Plan: * Treatment: 2. O verweight L AB: PROFILE, FASTING (COMPREHENSIVE METABOLIC) L AB: MICROALBUMIN, RANDOM L AB: CBC WITH AUTO DIFF L AB: Hemoglobin A1c 3. F ibromyalgia L AB: PROFILE, FASTING (COMPREHENSIVE METABOLIC) L AB: MICROALBUMIN, RANDOM L AB: CBC WITH AUTO DIFF L AB: Hemoglobin A1c 4. O thers Continue Furosemide Tablet, 20 MG, TAKE 1 TABLET BY MOUTH EVERY DAY FOR 30 DAYS; C ontinue Letrozole Tablet, 2.5 MG, TAKE 1 TABLET BY MOUTH EVERY DAY FOR 30 DAYS. * Procedure Codes: * Preventive Medicine: Counseling: S moking/Tobacco Use Patient counseled on the dangers of tobacco use and urged to quit. 0 09/03/2023 * Follow Up: 6 Months (Reason: OV) * Images: * Sign off status: Completed true * Provider: Satinder Dias MD Date: 0 09/03/2023 Generated for Printi ng/Ashleyg/eTransmitting on: 0 02/03/2025 06:38 PM EDT History and Physical Notes * HPI (History of Present Illness) Category Sub-Category Detail Notes COVID-19 Screening Questions Have you had any new onset fever, chills, cough, congestion, sore throat, shortness of breath, muscle aches?: No Have you been exposed to the virus withi n the last 10 days?: No Have you travelled internationally in [facility] last 10 days?: No Have you been exposed to COVID-19 in the past?: Yes Examination Category Sub-Category Detail Notes General Examination GENERAL APPEARANCE: pleasant , well nourished, well developed, in no acute distress, calm and relaxed , woman HEAD: atraumatic, normocep halic EYES: eomi, perrla, anicte tanvi, conjugate EARS: normal NOSE: septum intact NECK/THYROID: no jugular venous di stention, no carotid bruit, thyroid normal, Moderate torticollis to the left HEART: no clicks, gallops, murmurs, or rubs, regular rhythm, S1, S2 normal, no s3, or vascular bruits LUNGS: clear to auscultatio n , no wheezes, rales, rhonchi , good air movement, Old healed right thoracotomy scar with drain sites ABDOMEN: bowel sounds normal, no ascites, no organomegaly, no mass NEUROLOGIC: alert and oriented, cranial nerves 2-12 grossly intact, deep tendon reflexes 2+ symmetrical, motor strength normal upper and lower extremities, sensory exam intact SKIN: no suspicious lesion s, anicteric PERIPHERAL PULSES: normal BREASTS: no masses palpable b ilaterally , no dimpling , no discharge , no drainage , nontender , symmetrical, Axillary scar well-healed, bilateral lumpectomy scars healed, no new findings MUSCULOSKELETAL: extremities unremark able, no clubbing, cyanosis or edema, Arthritic changes fingers LYMPH NODES: no enlarged lymph no ludmila,spleen normal RECTAL EXAM: not examined PSYCH: alert, oriented ORAL CAVITY: normal, unremarkable
--- OUTSIDE RECORDS SUMMARY | 2023-09-12 11:18 | XMS_ITS ---
Author Organization George Dias III, MD Address [address] [facility] [address] [place] [address] Care Team Providers Care Food Specialist Name Role Phone Joseph Valencia MD Primary Care Provider Dr. George Ren III Unavailable [phone] REASON FOR VISIT wants lab results done on 09/10/2023 Encounters Encounter Location Date Provider Diagnosis George Dias III, MD [address] [place] [address] [place] [address] 09/12/2023 George Dias Plan Of Treatment No Information Progress Notes * DAJA PEACE PDOB: (73 yo F)Acc No.[id number]:09/12/2023 Patient: Jaimee DAJA VASQUEZ :1950 A ge:73 Y S ex:Female Address:[address] [place] [address], [id number] * true * Date: Generated for Printi ng/Faxing/eTransmitting on: 0 02/03/2025 06:38 PM EDT
--- OUTSIDE RECORDS SUMMARY | 2023-11-06 11:00 | XMS_ITS ---
Author Organization [facility] Address [address] [place] [address] Care Team Providers Care Fly Finisher Name Role Phone Joseph Valencia MD Primary Care Provider Merle Lopez [phone] Encounters Encounter Location Date Provider Diagnosis [address] [address] 11/06/2023 Merle Parker Plan Of Treatment No Information Progress Notes * Eliza RINCON PDOB: (75 yo F)Acc No.[id number]:11/06/2023 Progress Notes Patient: Jaimee AHMADIELISEO Eliza Tavares Provider: Darrick Parker DPM :1950 A ge:73 Y S ex:Female Date:11/06/2023 Address:[address] [place], [place] [phone] Pcp:Joseph Valencia MD Subjective: * Chief Complaints: [...] 11/06/2023 Generated for Printi ng/Faxing/eTransmitting on: 0 02/03/2025 06:38 PM EDT
--- OUTSIDE RECORDS SUMMARY | 2024-03-07 12:00 | XMS_ITS ---
Author Organization George Dias III, MD Address [address] [address] Care Team Providers Care Specialty Manufacturing Supervisor Name Role Phone Joseph Valencia MD [...] Date Provider Diagnosis George Dias III, MD [address] [place] [address] [place] [address] 03/07/2024 George Dias Ductal carcinoma in situ [...] Her reflux symptoms are well controlled with zacn-cre-wadzgjc medication. 03/07/2024 Former smoker (ICD-10 - Z87.891) [...] * DAJA PEACE PDOB: (74 yo F)Acc No.[id number]:03/07/2024 Progress Notes Patient: Jaimee DAJA VASQUEZ P Provider: Satinder Dias MD :1950 A ge:74 Y S ex:Female Date:03/07/2024 Address:[address] [place] [phone] Pcp:Joseph Valencia MD Subjective: * Chief Complaints: [...] trying to get in touch with her job development specialist, Dr. Zee, to discuss her heart condition [...] Lumpectomy and sentinel node biopsy left breast, [facility], Dr. Mixon reast cancer surgery in [...] :Her reflux symptoms are well controlled with oliu-brw-nvxhggf medication. 5 . F ormer smoker - [...] MD Date: Generated for Pina bennett/Rozina/Michellitting on: 0 02/03/2025 06:38 PM EDT History [...]
--- OUTSIDE RECORDS SUMMARY | 2024-09-09 12:00 | XMS_ITS ---
Author Organization George Dias III, MD Address [address] [place] [address] Care Team Providers Care Honey Grader And Blender Name Role Phone Joseph Valencia MD Primary Care Provider Dr. George Ren III Unavailable [phone] Allergies Allergen (clinical drug ingredient) Drug/Non Drug [...] Date Provider Diagnosis George Dias III, MD [address] [place] [address] [place] [address] 09/09/2024 George Dias Ductal carcinoma in situ [...] * DAJA PEACE PDOB: (75 yo F)Acc No.[id number]:09/09/2024 Progress Notes Patient: DAJA HAAS Provider: Satinder Dias MD :1950 A ge:74 Y S ex:Female Date:09/09/2024 Address:[address] [place] [address], [id number] Pcp:Joseph Valencia MD Subjective: * Chief Complaints: [...] medial right kidney, Former smoker since 1998, [id number] son, [id number] invasive ductal carcinoma left breast April [id number] [...] Lumpectomy and sentinel node biopsy left breast, [facility], Dr. Mixon 04/2021, Breast cancer surgery in 2021 2021. * Hospitalization/Major Diagno stic Procedure: D enies Past Hospitalization. * Family History: F ather: 68 yrs, COPD, hypertension, CVD, diagnosed with HTN, CVD. M other: , diagnosed with Cancer, CVD. S iblings: unknown. M aternadacia Grand Father: [...] 09/09/2024 Generated for Pina bennett/Rozina/Michellitting on: 0 02/03/2025 06:37 PM EDT History and Physical Notes * [...]
--- OUTSIDE RECORDS SUMMARY | 2024-12-01 09:40 | XMS_ITS ---
Author Organization [facility] Address [address] [facility] [address] [place] [address] Care Team Providers Care Foam Machine Operator Name Role Phone APOORVA HILL Primary Care Provider George Valente Unavailable [phone] George Dias MD Unavailable Unavailable REASON FOR VISIT ulcerative protocolitis Encounters Encounter Location Date Provider Diagnosis [facility] Outpatient [address] [place] [id number] 12/01/2024 George Nguyen Plan Of Treatment Next Appt Details Provider Name:George Nguyen , 09/09/2025 04:00:00 PM, [address] [facility], Suite [facility], [place], [address], Progress Notes * DAJA YOUNG PDOB: (75 yo F)Acc No.[id number]:12/01/2024 COLON WITH MAC Patient: Jaimee DAJA DOE Provider: Satinder Nguyen MD :1950 A ge:74 Y S ex:Female Date:12/01/2024 Address:[address] [place], [place] [phone] Pcp:APOORVA HILL Subjective: * Chief Complaints: * [...] 0 12/01/2024 Generated for Pina bennett/Rozina/Annabel on: 0 02/03/2025 06:39 PM EDT
[2025-02-03 17:59] LABS: Alanine Aminotransferase 24 U/L (0-31); Albumin Level 4.0 g/dL (3.5-5.0); Alkaline Phosphatase 79 U/L (39-117); Anion Gap 11 (12-20); Aspartate Amino Transferase 23 U/L (5-31); Blood Urea Nitrogen 16 mg/dL (9-16); Calcium 8.9 mg/dL (8.4-10.2); Carbon Dioxide 30 mmol/L (22-29); Chloride 106 mmol/L (96-108); Cholesterol 210 mg/dL (<200); Estimated Glomerular Filt Rate > 60; HDL Cholesterol 61 mg/dL (>40); Potassium 4.0 mmol/L (3.3-5.1); Sodium 143 mmol/L (135-145); Total Protein 6.6 g/dL (6.5-8.0); Triglycerides 94 mg/dL (<150)
--- OUTSIDE RECORDS SUMMARY | 2025-02-03 18:38 | XMS_ITS | Encounter Summary ---
Author Organization [facility] Address [address] [facility] [address] [place] [address] Phone Care Team Providers Care Environmental Resource Specialist Name Role Phone Joseph Valencia MD Primary Care Provider Encounter Details Date Type Department Care Team (Late st Contact Info) Description 03/28/2021 Ancillary Orders [facility],Outside Imaging [address] [place], [place] [phone] System, Provider Not In, [place] [address] Social History Tobacco Use Types Packs/Day Years [...] on filedocumented in this encounter Care Teams Environmental Resource Specialist Relationship Specialty Start Date End Date Joseph Valencia MD [address] [place] [address] Dr [place], [place] [address] PCP - General Internal Medicine 04/25/19 documented as of this encounter Additional Source Comments The information contained in this document represents components of the legal health record. It is not the complete legal health record.[facility]
--- OUTSIDE RECORDS SUMMARY | 2025-02-03 18:38 | XMS_ITS | Encounter Summary ---
Author Organization [facility] Address [address] [place] [address] Phone Care Team Providers Care Observation Assistant Name Role Phone Joseph Valencia MD Primary Care Provider Encounter Details Date Type Department Care Team (Late st Contact Info) Description 04/23/2019 Ancillary Orders [facility],Outside Imaging [address] [place] [address] System, Provider [place] In, [place] [address] Social History Tobacco Use Types Packs/Day Years [...] on filedocumented in this encounter Care Teams Observation Assistant Relationship Specialty Start Date End Date Joseph Valencia MD [address] [place] [address] [place] [address] PCP - General Internal Medicine 04/25/19 documented as of this encounter Additional Source Comments The information contained in this document represents components of the legal health record. It is not the complete legal health record.[facility]
--- OUTSIDE RECORDS SUMMARY | 2025-02-03 18:38 | XMS_ITS | Clinical Summary ---
Author Organization [facility] Address [address] [facility] [address] [place] [address] Phone Care Team Providers Care Plastics Technician Name Role Phone Joseph Valencia MD [...] (one) time each day 05/31/19 25 Active potassium chloride (MICRO-K) 10 MEQ CR capsule TAKE 2 CAPSULES (20 MEQ TOTAL) BY MOUTH 1 (ONE) TIME 180 capsule 12/19/19 25 Active carvedilol (COREG) 3.125 MG tablet TAKE 2 TABLETS BY MOUTH TWICE A DAY 360 tablet 1 01/21/20 25 Active carvedilol (COREG) 3.125 MG tablet PLEASE SEE ATTACHED FOR DETAILED DIRECTIONS 360 tablet 1 08/21/19 25 025 Discontinued Active Problems Problem Noted Date Diagnosed Date Essential (primary) hypertension 10/29/2023 Personal history of kidney stones 10/29/2023 Other secondary hypertension 08/02/2023 Encounters Date Type Department Care Team Description 01/17/2025 Refill [facility] [address] [place] [address] Kiran Dickerson MD 12/17/2024 Refill [facility] [address] [place] [address] Carlos Manuel Wagoner MD from Last 3 [...] Visit [facility] [address] [place] [address] Carlos Manuel Wagoner MD [address] [facility] [address] [place] [address] Health Maintenance Due Date Last Done Comments Pneumococcal Vaccine: 50+ Years (3 of 3 - PCV20 or PCV21) 02/01/2015 12/07/2014, 12/05/2006 Influenza Vaccine (#1) 2025 , 03/06/2011 Hepatitis B Vaccine Aged Out No longe r eligible based on patient's age to complete this topic Insurance [facility] Care Teams Plastics Technician Relationship Specialty Start Date End Date Joseph Valencia MD [address] [place] [address] [address] [place], [place] PCP - General Internal Medicine 08/02/23
--- OUTSIDE RECORDS SUMMARY | 2025-02-03 18:38 | XMS_ITS | Encounter Summary ---
Author Organization [facility] Address [address] [facility] [address] [place] [address] Phone Care Team Providers Care Film Library Clerk Name Role Phone Joseph Valencia MD Primary Care Provider Encounter Details Date Type Department Care Team (Late st Contact Info) Description 06/20/2021 Ancillary Orders [facility],Outside Imaging [address] [place] [address] System, Provider [place] In, [place] [address] Social History Tobacco Use Types Packs/Day Years [...] on filedocumented in this encounter Care Teams Film Library Clerk Relationship Specialty Start Date End Date Joseph Valencia MD [address] [place] [address] [place] [address] PCP - General Internal Medicine 12/13/19 documented as of this encounter Additional Source Comments The information contained in this document represents components of the legal health record. It is not the complete legal health record.[facility]
--- OUTSIDE RECORDS SUMMARY | 2025-02-03 18:38 | XMS_ITS | Encounter Summary ---
Author Organization [facility] Address [address] [facility] [address] [place] [address] Phone Care Team Providers Care Spa Consultant Name Role Phone Joseph Valencia MD Primary Care Provider Encounter Details Date Type Department Care Team (Late st Contact Info) Description 04/11/2019 Ancillary Orders [facility],Outside Imaging [address] [place], [place] [phone] System, Provider [place] In, [place] [address] Social History Tobacco Use Types Packs/Day Years [...] on filedocumented in this encounter Care Teams Spa Consultant Relationship Specialty Start Date End Date Joseph Valencia MD [address] [place] [address] [place] [address] PCP - General Internal Medicine 04/25/19 documented as of this encounter Additional Source Comments The information contained in this document represents components of the legal health record. It is not the complete legal health record.[facility]
--- OUTSIDE RECORDS SUMMARY | 2025-02-03 18:38 | XMS_ITS | Patient Health Record ---
Author Organization George Dias III, MD Address [address] [place] [address] [place] [address] Care Team Providers Care Track Surfacing Machine Operator Name Role Phone Joseph Valencia [...] Problem Status W/U Status Risk Notes Problem 4086061 Former smoker (Z87.891) Active confirmed She has been abstinent since 1998. She has a plan to prevent relapse in times of stress and illness. Problem Fibromyalgia (043568796) Fibromyalgia (M79.7) Active confirmed Her symptoms ar e stable and unchanged. Problem 910557487 Overweight (E66.3) Active confirmed This problem duron s resolved and will be removed from her problem list Problem 84398957 Allergy to sulfa drugs (Z88.2) Active confirmed Problem 987231264 GERD without esophagitis (K21.9) Active confirmed Her reflux symptoms are well controlled with ojqt-sjw-iruncam medication. Problem 88101596 Essential hypertension (I10) Active confirmed Her blood pressure is 134/71. She is stable and no change in her regimen was needed. I recommended continued sodium restriction. Problem 37826070 Penicillin allergy (Z88.0) Active confirmed Problem 748463077356757 Hematochezia (K92.1) Active confirmed #4 days. She isn't visible streaks of red blood in her stool. She will be referred to her gastroenterologi st for colonoscopy. 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 Problem 41741144634081459 Adenocarcinoma of right lung (C34.91) Active confirmed There was no sign of her recurrent cervical new primary today. Problem 698434566 Renal cyst (N28.1) Active confirmed Diagnosis will be followed. 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 She has begun on anastrozole. She will have a radiation therapy consultation. Because of diffuse aches and pains. We have temporarily stopped anastrozole. Problem Psoriatic arthritis (372318387) Psoriatic arthritis (L40.50) Active confirmed She has [...] Date Provider Diagnosis George Dias III, MD [address] [place] [address] [place] [address] 03/07/2024 George Dias Ductal carcinoma in situ [...] Her reflux symptoms are well controlled with xwim-hkm-oispsop medication. 03/07/2024 Former smoker (ICD-10 - Z87.891) [...] Insured Coverage Start Date Coverage End Date [address] [place] [address] [id number] DAJA POWELL Self - patient is the [...] l right kidney former smoker since 1998 [id number] son [id number] invasive ductal carcinoma left breast April [id number] DCIS right breast, surgery and RT Breast Cancer in 2021, High Blood Pressu re, Ulcerated Colitis Surgical History Surgery Date(Month/Year) Breast cancer surgery in 2021 2021 Lumpectomy and sentinel node biopsy left breast, [facility], Dr. Mixon 04/2021 multiple negative endometrial biopsies Right breast lumpectomy with 2 needle lo calization (DP) 03/2019 36 weeks radiation . Left breast 11/1998 1 major vein removed- Dr. Lo 2 major veins removed right leg Lumpectomy and sentinel nodes left breas t 1998 right upper lobectomy, stage I adenocarc inoma of, Dr. Scherer 1998
--- OUTSIDE RECORDS SUMMARY | 2025-02-03 18:38 | XMS_ITS | Encounter Summary ---
Author Organization [facility] Address [address] [facility] [address] [place] [address] Phone Care Team Providers Care Rigging And Controls Aircraft Mechanic Name Role Phone Joseph Valencia MD Primary Care Provider Encounter Details Date Type Department Care Team (Late st Contact Info) Description 06/20/2021 Ancillary Orders [facility],Outside Imaging [address] [place] [address] System, Provider [place] In, [place] [address] Social History Tobacco Use Types Packs/Day Years [...] on filedocumented in this encounter Care Teams Rigging And Controls Aircraft Mechanic Relationship Specialty Start Date End Date Joseph Valencia MD [address] [place] [address] [place] [address] PCP - General Internal Medicine 12/13/19 documented as of this encounter Additional Source Comments The information contained in this document represents components of the legal health record. It is not the complete legal health record.[facility]
--- OUTSIDE RECORDS SUMMARY | 2025-02-03 18:39 | XMS_ITS | Patient Health Record ---
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 Name Role Phone Joseph Valencia MD Primary Care Provider UnavailMerle Mejia Unavailable [phone] Allergies Allergen (clinical drug ingredient) Drug/Non Drug [...] Status W/U Status Risk Notes Problem Psoriasis (8894609) Psoriasis (L40.9) Active confirmed Problem Varicose veins of bilateral lower limbs (2295989915316 9106) Varicose veins of both legs with edema (I83.893) Active confirmed Plan Of Treatment Pending Test Test Name Order Date Ultrasound : Extremity Ultrasound Non-[place] sc 04/12/2018 X ray : Foot, left 3V 03/22/2018 X ray : Foot, right 3V 03/22/2018 [address]6085- Ganglion Cyst Injection/Aspiratio n 03/22/2018 Insurance Providers Payer Name Payer Address Payer Phone Subscriber Number Group Number Insured Name Patient Relationship to Insured Coverage Start Date Coverage End Date [employer] [place] Medicare Advantage [address] [place] [address] [id number] Eliza Shields Self - patient is the insured Medical (General) History Medical History History ICD Code Anxiety Back,Hip,and Knee pain Cancer Hiatal hernia Sciatica Psoriasis/eczema Stomach ulcer hyperparathyroidism Surgical History Surgery Date(Month/Year) lung lobectomy right and left 1998
--- OUTSIDE RECORDS SUMMARY | 2025-02-03 18:39 | XMS_ITS | Patient Health Record ---
Author Organization [facility] Address [address] [place] [address] Care Team Providers Care Vp Respiratory Name Role Phone APOORVA HILL Primary Care Provider George Valente Unavailable [phone] George Dias MD Unavailable Unavailable Allergies Allergen (clinical drug ingredient) Drug/Non Drug Allergy documented on EMR Reaction Allergy Type Onset Date Status codeine Codeine Unknown Drug Allergy Active Substance with sulfonamide structure and antibacterial mechanism of action (substance) Sulfa (uncoded) Unknown Allergy Active Penicillin (uncoded) Unknown Allergy Active Results Component Value Reference Range Notes Pathology Reviewed date:02/03/2025 06:03:21 PM Interpretation: Performing Lab:[facility], [address] [place] [id number] Notes/Report: Reason For Referral No Information Medications Medication SIG (Take, Route, Frequency, Duration) Notes Start Date End Date Status Iron Active Omeprazole 20 MG 1 Orally BID Active Turmeric Not-Taking Albuterol Sulfate (2.5 MG/3ML) 0.083% INHALE 1 VIAL EVERY 4 HOURS BY MOUTH NEEDED Inhalation for 25 Active Mesalamine 1000 MG 1 suppository at bedtime Rectal Once every night for 30 days 12/02/2024 Active Multivitamin - 1 tablet Orally Once a day for 30 day(s) Active Potassium Chloride ER 10 MEQ Oral for 90 Days Active Aspir-81 once a day Not-Takin g dilTIAZem HCl ER Coated Beads 180 MG TAKE ONE CAPSULE BY MOUTH DAILY Oral for 90 Active ALPRAZolam 0.5 MG as directed Orally 4x a day Active Mesalamine 1000 MG 1 Rectal Nightly for 30 days Active Needbox AS Active Furosemide 40 MG 1 tablet Orally 40 mg in am 20 mg in pm Active Tylenol Extra Strength Active Potassium Chloride ER 10 MEQ Oral for 90 Active Letrozole 2.5 MG Oral for 90 A ctive Carvedilol 3.125 MG PLEASE SEE ATTACHED FOR DETAILED DIRECTIONS Oral for 90 Active Mesalamine 1.2 GM 4 Orally Once a day for 30 day(s) 02/02/2024 Not-Taking Albuterol Sulfate HFA 108 (90 Base) MCG/ACT Inhalation for 25 Active Lialda 1.2 GM 4 Orally Once a day for 30 day(s) Please let my office know if the insurance is not covering this and we can try a different mesalamine product. Thanks 01/05/2024 Not-Taking Mesalamine 1000 MG 1 suppository at bedtime Rectal Every night at bedtime for 30 day(s) 07/20/2023 Not-Taking Immunizations Vaccine Route Administration Date Status Comme nts Influenza Unknown 03/29/2020 Administered Influenza Unknown 09/26/2023 Refused Influenza Unknown 06/11/2024 Refused Influenza Unknown 02/03/2025 Refused Social History Tobacco Use: Social History [...] Problem Status W/U Status Risk Notes Problem 13525060 Epigastric abdominal pain (R10.13) Active confirmed Problem Screening for malignant neoplasm of colon (372921082) Encounter for screening for malignant neoplasm of colon (Z12.11) Active confirmed Problem History of polyp of colon (situation) (598703878) Personal history of colonic polyps (Z86.010) Active confirmed Problem Diverticular disease of colon (806135034) Diverticulosis of large intestine without perforation or abscess without bleeding (K57.30) Active confirmed Problem 829703955 Gastroesophageal reflux disease, esophagitis presence not specified (K21.9) Active confirmed Problem 86569997 Rectal bleed (K62.5) Active confirmed Problem Benign neoplasm of colon (62324840) 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 Problem Ulcerative colitis (08895457) Ulcerative colitis (K51.90) Active confirmed Problem Proctitis (3235751) 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) Active confirmed Problem Diverticulosis of colon (937747744) Diverticulosis of colon (K57.30) Active confirmed Problem History of polyp of colon (situation) (267396789) History of colon polyps (Z86.0100) Active confirmed Vital Signs Temperature 97.6 degrees Fahrenheit 02/03/2025 Blood pressure diastolic 01 mm Hg 02/03/2025 Height 65 in 02/03/2025 Blood pressure systolic 001 mm Hg 02/03/2025 Weight 157 lbs 02/03/2025 BMI 26.12 kg/m2 02/03/2025 Procedures Procedure Date Ordered Date Performed Result Body Sit e COLONOSCOPY 10/15/2024 N/A Encounters Encounter Location Date Provider Diagnosis [facility] [address] [place], [place] [id number] 12/01/2024 George Nguyen [facility] [address] [facility] [address] [place] [phone] 02/03/2025 George Nguyen Encounter for screen ing for malignant neoplasm of colon Z12.11 ; Proctitis K62.89 ; Ulcerative colitis K51.90 and History of colon polyps Z86.0100 [facility] [address] [place] [phone] 06/11/2024 George Nguyen Ulcerative colitis K51.90 ; Encounter for screening for malignant neoplasm of colon Z12.11 and Personal history of colonic polyps Z86.010 [facility] [address] [place] [phone] 10/15/2024 George Nguyen Rectal bleed K62.5 ; Ulcerative colitis K51.90 ; Gastroesophageal reflux disease, esophagitis presence not specified K21.9 ; Tubulovillous adenoma of colon K63.5 and Encounter for screening for malignant neoplasm of colon Z12.11 [facility] [address] [place] [address], [place] [address] 02/06/2024 George Carey [facility] [address] [place] [address] 02/11/2024 George Carey [facility] [address] [place] [address] 03/05/2024 George Carey [facility] [address] [place] [address] 04/02/2024 George Carey [facility] [address] [place] [address] 06/17/2024 George Carey [facility] [address] [place] [address] 10/16/2024 George Carey [facility] [address] [place] [address] 12/02/2024 George Nguyen Assessments Encounter Date Diagnosis (ICD Code) Assessment Notes Treatment Notes Treatment Clinical Notes Section Notes 02/03/2025 Encounter for screening for malignant neoplasm of colon (ICD-10 - Z12.11) 02/03/2025 Proctitis (ICD-10 - K62.89) 06/11/2024 Encounter for screening for malignant neoplasm [...] to keep you advised of her progress. 02/03/2025 Ulcerative colitis (ICD-10 - K51.90) Use at least 3 of the mesalamine pills(ideally use 4) daily for the proctitis Avoid all aspirin and NSAIDs like Motrin, Advil, etc 06/11/2024 Personal history of colonic polyps (ICD-10 [...] to keep you advised of her progress. 02/03/2025 History of colon polyps (ICD-10 - Z86.0100) We will want to repeat the colonoscopy in 11/202510/15/2024 Tubulovillous adenoma of colon (ICD-10 - K63.5) [...] Name:George Nguyen , 09/09/2025 04:00:00 PM, [address], [address], [place], [address], Insurance Providers Payer Name Payer Address Payer Phone Subscriber Number Group Number Insured Name Patient Relationship to Insured Coverage Start Date Coverage End Date [employer] [address] [place] [phone] [id number] DAJA YOUNG Self - patient is the insured Medical (General) History Medical History History ICD Code Lung cancer - 1998- Removed upper right lobe Breast cancer-1998 Left- surgery and XRT ; and 03/2019 Right- surgery and XRT GERD Overactive parathyroid Anxiety Arthritis Colonoscopy in 2004 was neg. except for a hyperplastic polyp Denies OK,DM,CVA,renal disease COPD Colonscopy in 01/2020 with a distal ulcerative proctitis that responded well to Mesalamine suppositories; she also had 3 flat > 1cm tubulovillous adenomas removed from the region of the cecum and proximal ascending colon EGD in 01/2020 with a small h iatal hernia- there was no esophagitis, Greer's esophagus, nor ulcer disease- gastric biopsies were negative for H. pylori Negative [...] was an active proctitis and distal colitis. Scoliosis and osteoporosis Colonoscopy 11/2024 with tubular adenomas removed and active proctitis Surgical History Surgery Date(Month/Year) Parathyroid surgery scheduiled for at [facility] Vein surgery left leg - Dr. Aponte 01/2023 Lasik surgery on both eyes Cateracts left and right -Dr. Newton Right inguinal hernia repair Lumpectomies right and left breast for cancer with left sided node dissection RUL lung resection for cancer
== END 2025-02-03 16:11 | disposition home or self-care (01) ==
LOC: HO.LAB 16:10
PROVIDERS: Physician Assistant; PCP Internal Medicine; Visit Provider Nurse Practitioner Family
DX: I10 Essential (primary) hypertension (principal); M81.0 Age-related osteoporosis without current pathological fracture; E83.52 Hypercalcemia
CPT/HCPCS: 36415; 80048; 80061; 80076; 84443

== ENCOUNTER 2025-02-09 06:58 | Day surgery (SDC) | payer MEDICARE, SELFPAY ==
--- OUTSIDE RECORDS SUMMARY | 2023-09-19 11:00 | XMS_ITS | Continuity of Care Document ---
Author Organization [facility] Address [address] [place] [address] Phone Care Team Providers Care Corporate Risk Analyst Name Role Phone Yasmany KEY, GARDENIA, George [...] Telemedicine [place] & [place] [facility], [address] [place] [address] [address], [place], [id number], [place] tel:[phone] R - [place] - [place] Varicose veins of bilateral lower extremities with other complicationsL ocalized edemaCramp and spasmPruritus, unspecifiedEss ential (primary) hypertension 4 Yasmany KEY, GARDENIA, CROW Vazquez. [address], [address], [facility], [id number] , [place]. tel:[phone] Offic Cons New/estab Mod-hi 60- [place] & [place] [facility], [address] [place] [address] [address], [place], [id number], tel:[phone] CVR - [place] Essential (primary) hypertensionPr uritus, unspecifiedPai n in left legCramp and spasmLocalized edemaVaricose veins of bilateral lower extremities with other complicationsP ain in right lower legPain in left lower legPain in right leg 4 Yasmany KEY RVT, CROW Vazquez. [address] [place] [address], [facility] [place], [place], [id number] , [place]. tel:[phone] [facility], [address] [place] [address] [address] [address], [id number], tel:[phone] CVR - [facility] Varicose veins of bilateral lower extremities with pain 4 Yasmany KEY RVT, CROW Vazquez. [address] [place] [address], Lalit willis [place], [id number] , [place]. tel:[phone] Referring Provider: George Jade MD, RVT, CROW, [address] [place] [address], [place], [address] . tel:[phone] Family History Family Member Type Diagnosis Age At Onset No Information Payers Payer name Insurance type Covered libertarian ID Grayson jacome(s) [employer] [place] [employer] [place] [id number] Social History Type Description Quantity Date Captured [...]
--- OUTSIDE RECORDS SUMMARY | 2024-01-04 07:40 | XMS_ITS ---
Author Organization [facility] Address [address] [place] [address] Care Team Providers Care Dope Mixer Name Role Phone APOORVA HILL Primary Care Provider George Valente Unavailable [phone] George Dias MD Unavailable Unavailable REASON FOR VISIT colon screening Problems Problem Type SNOMED Code ICD Code Onset Dates Problem Status W/U Status Risk Notes Problem Ulcerative colitis (59792136) Ulcerative colitis (K51.90) Active confirmed Problem Diverticular disease of colon (030828911) Diverticulosis of large intestine without perforation or abscess without bleeding (K57.30) Active confirmed Encounters Encounter Location Date Provider Diagnosis [facility] [place] Outpatient [address] [place] [id number] 01/04/2024 George Nguyen Colon cancer scree shirley [...] Next Appt Details Provider Name:George Nguyen , 02/03/2025 02:40:00 PM, [address], [address], [place], [address], Progress Notes * DAJA YOUNG PDOB: (74 yo F)Acc No.[id number]:01/04/2024 COLON WITH MAC Patient: DAJA JAY Provider: Satinder Nguyen MD :1950 A ge:73 Y S ex:Female Date:01/04/2024 Address:[address] [place], [place] [id number] Pcp:APOORVA HILL Subjective: * Chief Complaints: * [...] 0 01/04/2024 Generated for Pina bennett/Rozina/Michellitting on: 0 01/14/2025 02:05 PM EDT
--- OUTSIDE RECORDS SUMMARY | 2024-09-09 12:00 | XMS_ITS ---
Author Organization George Dias III, MD Address [address] [place] [address] Care Team Providers Care Guest Experience Representative Name Role Phone Joseph Valencia MD Primary Care Provider Unavaila George Hargrove Unavailable [phone] Allergies Allergen (clinical drug ingredient) Drug/Non Drug Allergy documented on EMR Reaction Allergy Type Onset Date Status Information temporarily unavailable Sulfacetamide Unknown Drug Allergy Active Information temporarily unavailable Penicillin Unknown Drug Allergy Active Information temporarily unavailable Codeine stomach upset Drug Allergy Active REASON FOR VISIT Follow Up Medications Medication SIG (Take, Route, Frequency, Duration) Notes Start Date End Date Status Potassium Chloride Lizzie ER 1 0 MEQ 1 tablet with food Orally Twice a day Active Letrozole 2.5 MG TAKE 1 TABLET BY KAROL EVERY DAY FOR 30 DAYS Active Carvedilol [...] Provider Diagnosis George Dias III, MD [address] [place] [address] [place] [address] 09/09/2024 George Dias Ductal carcinoma in situ [...] * DAJA PEACE PDOB: (74 yo F)Acc No.[id number]:09/09/2024 Progress Notes Patient: DAJA HAAS Provider: Satinder Dias MD :1950 A ge:74 Y S ex:Female Date:09/09/2024 Address:[address] [place] [address], [id number] Pcp:Joseph Valencia MD Subjective: * Chief Complaints: [...] medial right kidney, Former smoker since 1998, [id number] son, [id number] invasive ductal carcinoma left breast April [id number] [...] Lumpectomy and sentinel node biopsy left breast, [facility], Dr. Mixon 04/2021, Breast cancer surgery in [...] 0 09/09/2024 Generated for Pina bennett/Rozina/Ashleesmitting on: 0 01/14/2025 02:04 PM EDT History and Physical Notes * [...]
--- OUTSIDE RECORDS SUMMARY | 2024-12-01 09:40 | XMS_ITS ---
Author Organization [facility] Address [address] [facility] [address] [place] [address] Care Team Providers Care Round Cutter Operator Name Role Phone APOORVA HILL Primary Care Provider George Valente Unavailable [phone] George Dias MD Unavailable Unavailable REASON FOR VISIT ulcerative protocolitis Encounters Encounter Location Date Provider Diagnosis [facility] Outpatient [address] [place] [id number] 12/01/2024 George Nguyen Plan Of Treatment Next Appt Details Provider Name:George Nguyen , 02/03/2025 02:40:00 PM, [address] [facility], Suite [facility], [place], [address], Progress Notes * DAJA YOUNG PDOB: (74 yo F)Acc No.[id number]:12/01/2024 COLON WITH MAC Patient: Jaimee DAJA DOE Provider: Satinder Nguyen MD :1950 A ge:74 Y S ex:Female Date:12/01/2024 Address:[address] [place], [place] [phone] Pcp:APOORVA HILL Subjective: * Chief Complaints: * [...] 12/01/2024 Generated for Pina bennett/Rozina/Annabel on: 0 01/14/2025 02:06 PM EDT
--- OUTSIDE RECORDS SUMMARY | 2025-01-14 14:05 | XMS_ITS | Encounter Summary ---
Author Organization [facility] Address [address] [facility] [address] [place] [address] Phone Care Team Providers Care Flight Attendant Name Role Phone Joseph Valencia MD Primary Care Provider Encounter Details Date Type Department Care Team (Late st Contact Info) Description 06/20/2021 Ancillary Orders [facility],Outside Imaging [address] [place] [address] System, Provider Not In, [place] [address] Social History Tobacco Use Types Packs/Day Years [...] on filedocumented in this encounter Care Teams Flight Attendant Relationship Specialty Start Date End Date Joseph Valencia MD [address] [place] [address] [place] [address] PCP - General Internal Medicine 12/13/19 documented as of this encounter Additional Source Comments The information contained in this document represents components of the legal health record. It is not the complete legal health record.[facility]
--- OUTSIDE RECORDS SUMMARY | 2025-01-14 14:05 | XMS_ITS | Encounter Summary ---
Author Organization [facility] Address [address] [place] [address] Phone Care Team Providers Care Pelt Dropper Name Role Phone Joseph Valencia MD Primary Care Provider Encounter Details Date Type Department Care Team (Late st Contact Info) Description 03/28/2021 Ancillary Orders [facility],Outside Imaging [address] [place], [place] [phone] System, Provider [place] In, [place] [address] Social History Tobacco Use Types Packs/Day Years [...] on filedocumented in this encounter Care Teams Pelt Dropper Relationship Specialty Start Date End Date Joseph Valencia MD [address] [place] [address] Dr [place], [place] [address] PCP - General Internal Medicine 04/25/19 documented as of this encounter Additional Source Comments The information contained in this document represents components of the legal health record. It is not the complete legal health record.[facility]
--- OUTSIDE RECORDS SUMMARY | 2025-01-14 14:05 | XMS_ITS | Clinical Summary ---
Author Organization [facility] Address [address] [facility] [address] [place] [address] Phone Care Team Providers Care Supply Chain Analyst Name Role Phone Joseph Valencia MD Primary Care Provider [phone] Allergies Active Allergy Reactions Criticality Noted Date [...] 12/17/2024 Refill [facility] [address] [place] [address] Carlos Manuel Wagoner MD from Last 3 [...] Visit [facility] [address] [place] [address] Carlos Manuel Wagoner MD [address] [facility] [address] [place] [address] Health Maintenance Due Date Last [...] patient's age to complete this topic Insurance [facility] Care Teams Supply Chain Analyst Relationship Specialty Start Date End Date Joseph Valencia MD [address] [place], [place] PCP - General Internal Medicine 08/02/23
--- OUTSIDE RECORDS SUMMARY | 2025-01-14 14:05 | XMS_ITS | Patient Health Record ---
Author Organization George Dias III, [facility] Address [address] [facility] [place] [address] Care Team Providers Care Architectural Drafting Instructor Name Role Phone Joseph Valencia MD Primary Care Provider Unavaila George Hargrove Unavailable [phone] Allergies Allergen (clinical drug ingredient) Drug/Non Drug Allergy documented on EMR Reaction Allergy Type Onset Date Status Information temporarily unavailable Sulfacetamide Unknown Drug Allergy Active Information temporarily unavailable Penicillin Unknown Drug Allergy Active Information temporarily unavailable Codeine stomach upset Drug Allergy Active Reason For Referral No [...] Problem Status W/U Status Risk Notes Problem 8563983 Former smoker (Z87.891) Active confirmed She has been abstinent since 1998. She has a plan to prevent relapse in times of stress and illness. Problem Information temporarily unavailable Fibromyalgia (M79.7) Active confirmed Her symptoms ar e stable and unchanged. Problem 236134150 Overweight (E66.3) Active confirmed This problem duron s resolved and will be removed from her problem list Problem 79422732 Allergy to sulfa drugs (Z88.2) Active confirmed Problem 626963864 GERD without esophagitis (K21.9) Active confirmed Her reflux symptoms are well controlled with [id number] medication. Problem 95321162 Essential hypertension (I10) Active confirmed Her blood pressure is 134/71. She is stable and no change in her regimen was needed. I recommended continued sodium restriction. Problem 76223296 Penicillin allergy (Z88.0) Active confirmed Problem 424784333547502 Hematochezia (K92.1) Active confirmed #4 days. She isn't visible streaks of red blood in her stool. She will be referred to her gastroenterologi st for colonoscopy. 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 Problem 44560680018208041 Adenocarcinoma of right lung (C34.91) Active confirmed There was no sign of her recurrent cervical new primary today. Problem 789735667 Renal cyst (N28.1) Active confirmed Diagnosis will be followed. 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 She has begun on anastrozole. She will have a radiation therapy consultation. Because of diffuse aches and pains. We have temporarily stopped anastrozole. Problem Information temporarily unavailable Psoriatic arthritis (L40.50) Active confirmed She has [...] Provider Diagnosis George Dias III, MD [address] [place] [address] [address] [place] [address] 03/07/2024 George Dias Ductal carcinoma in situ [...] Her reflux symptoms are well controlled with rjjb-ssj-qhikrmo medication. 03/07/2024 Former smoker (ICD-10 - Z87.891) [...] Insured Coverage Start Date Coverage End Date [address] [place] [phone] [id number] DAJA POWELL Self - patient is the [...] l right kidney former smoker since 1998 [id number] son [id number] invasive ductal carcinoma left breast April [id number] DCIS right breast, surgery and RT Breast Cancer in 2021, High Blood Pressu re, Ulcerated Colitis Surgical History Surgery Date(Month/Year) Breast cancer surgery in 2021 2021 Lumpectomy and sentinel node biopsy left breast, [facility], Dr. Mixon 04/2021 multiple negative [...]
--- OUTSIDE RECORDS SUMMARY | 2025-01-14 14:05 | XMS_ITS | Encounter Summary ---
Author Organization [facility] Address [address] [facility] [address] [place] [address] Phone Care Team Providers Care Advertising Clerk Name Role Phone Joseph Valencia MD Primary Care Provider Encounter Details Date Type Department Care Team (Late st Contact Info) Description 06/20/2021 Ancillary Orders [facility],Outside Imaging [address] [place] [address] System, Provider Not In, [place] [address] Social History Tobacco Use Types Packs/Day Years [...] on filedocumented in this encounter Care Teams Advertising Clerk Relationship Specialty Start Date End Date Joseph Valencia MD [address] [place] [address] [place] [address] PCP - General Internal Medicine 12/13/19 documented as of this encounter Additional Source Comments The information contained in this document represents components of the legal health record. It is not the complete legal health record.[facility]
--- OUTSIDE RECORDS SUMMARY | 2025-01-14 14:06 | XMS_ITS | Encounter Summary ---
Author Organization [facility] Address [address] [facility] [address] [place] [address] Phone Care Team Providers Care Bottle Sorter Name Role Phone Joseph Valencia MD Primary Care Provider Encounter Details Date Type Department Care Team (Late st Contact Info) Description 04/11/2019 Ancillary Orders [facility],Outside Imaging [address] [place], [place] [phone] System, Provider [place] In, [place] [address] Social History Tobacco Use Types Packs/Day Years [...] on filedocumented in this encounter Care Teams Bottle Sorter Relationship Specialty Start Date End Date Joseph Valencia MD [address] [place] [address] [place] [address] PCP - General Internal Medicine 04/25/19 documented as of this encounter Additional Source Comments The information contained in this document represents components of the legal health record. It is not the complete legal health record.[facility]
--- OUTSIDE RECORDS SUMMARY | 2025-01-14 14:06 | XMS_ITS | Patient Health Record ---
Author Organization [facility] Address [address] [place] [address] Care Team Providers Care Advertising Coordinator Name Role Phone Joseph Valencia MD Primary Care Provider Unavaila ble Elena Merle Unavailable [phone] Allergies Allergen (clinical drug ingredient) Drug/Non Drug Allergy documented on EMR Reaction Allergy Type Onset Date Status Information temporarily unavailable Amoxicillin hives, SOB Drug Allergy Active Information temporarily unavailable Atrovent Unknown Drug Allergy Active Information temporarily unavailable Bactrim hives, SOB Drug Allergy Active Information temporarily unavailable sulfa hives, SOB Drug Allergy Active Information temporarily unavailable Penicillin hives, SOB Drug Allergy Active Information temporarily unavailable Codeine nervous Drug Allergy Active Reason For [...] Problem Status W/U Status Risk Notes Problem Information temporarily unavailable Psoriasis (L40.9) Active confirmed Problem Information temporarily unavailable Varicose veins of both legs with edema (I83.893) Active confirmed Plan Of Treatment Pending Test Test Name Order Date Ultrasound : Extremity Ultrasound Non-[place] sc 04/12/2018 X ray : Foot, left 3V 03/22/2018 X ray : Foot, right 3V 03/22/201819178- Ganglion Cyst Injection/Aspiratio n 03/22/2018 Insurance Providers Payer Name Payer Address Payer Phone Subscriber Number Group Number Insured Name Patient Relationship to Insured Coverage Start Date Coverage End Date [employer] [place] Medicare Advantage [address] [facility] [place] [id number] Eliza Shields Self - patient is the insured Medical (General) History Medical History History ICD Code Anxiety Back,Hip,and Knee pain Cancer Hiatal hernia Sciatica Psoriasis/eczema Stomach ulcer hyperparathyroidism Surgical History Surgery Date(Month/Year) lung lobectomy right and left 1998
--- OUTSIDE RECORDS SUMMARY | 2025-01-14 14:06 | XMS_ITS | Clinical Summary ---
Author Organization [facility] Address [address] [place], [place] [phone] Phone Care Team Providers Care Telecommunications Administrator Name Role Phone Joseph Valencia MD Primary Care Provider Allergies Active Allergy Reactions Criticality Noted Date Comments Ipratropium [place] Cough 04/25/2019 Penicillins Unknown 04/25/2019 Sulfa (Sulfonamide [...] [place] [employer] H[employer] REPLACEMENT Care Teams Telecommunications Administrator Relationship Specialty Start Date End Date Joseph Valencia MD [address] [place] [address] Dr WREN [address] [place] [address] PCP - General Internal Medicine 04/25/19 Additional Source Comments The information contained in this document represents components of the legal health record. It is not the complete legal health record.[facility]
--- OUTSIDE RECORDS SUMMARY | 2025-01-14 14:06 | XMS_ITS | Patient Health Record ---
Author Organization [facility] Address [address] [place] [address] Care Team Providers Care Surveillance Sensor Operator Name Role Phone APOORVA HILL Primary Care Provider George Valente Unavailable [phone] George Dias MD Unavailable Unavailable Allergies Allergen (clinical drug ingredient) Drug/Non Drug Allergy documented on EMR Reaction Allergy Type Onset Date Status Information temporarily unavailable Codeine Unknown Drug Allergy Active Information temporarily unavailable Sulfa (uncoded) Unknown Allergy Active Information temporarily unavailable Penicillin (uncoded) Unknown Allergy Active Results Component Value Reference Range Notes Pathology (Not yet reviewed by provider) Interpretation: Performing Lab:[facility], [address] [place] [phone] Notes/Report: Reason For Referral No Information Medications Medication SIG (Take, Route, Frequency, Duration) Notes Start Date End Date Status Tylenol Extra Strength Active Carvedilol 3.125 MG PLEASE SEE ATTACHED FOR DETAILED DIRECTIONS Oral for 90 Active Aegis [employer]ility [place] Syncurity Active Letrozole 2.5 MG Oral for 90 [...] Problem Status W/U Status Risk Notes Problem 28713130 Epigastric abdominal pain (R10.13) Active confirmed Problem Screening for malignant neoplasm of colon (745307575) Encounter for screening for malignant neoplasm of colon (Z12.11) Active confirmed Problem History of polyp of colon (situation) (946199590) Personal history of colonic polyps (Z86.010) Active confirmed Problem Diverticular disease of colon (103917434) Diverticulosis of large intestine without perforation or abscess without bleeding (K57.30) Active confirmed Problem 992559240 Gastroesophageal reflux disease, esophagitis presence not specified (K21.9) Active confirmed Problem 29529405 Rectal bleed (K62.5) Active confirmed Problem Benign neoplasm of colon (10466179) 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 Problem Ulcerative colitis (48283507) Ulcerative colitis (K51.90) Active confirmed Problem Proctitis (8825719) 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) Active confirmed Problem Diverticulosis of colon (871379214) Diverticulosis of colon (K57.30) Active confirmed Vital Signs Temperature 98.6 degrees Fahrenheit 06/11/2024 Blood pressure diastolic 77 mm Hg 10/15/2024 Height 65 in 10/15/2024 Blood pressure systolic 111 mm Hg 10/15/2024 Weight 155 lbs 10/15/2024 BMI 25.79 kg/m2 10/15/2024 Procedures Procedure Date Ordered Date Performed Result Body Sit e COLONOSCOPY 10/15/2024 N/A Encounters Encounter Location Date Provider Diagnosis [facility] [address] [place] [id number] 12/01/2024 George Nguyen [facility] [address] [place] [phone] 06/11/2024 George Nguyen Ulcerative colitis K51.90 ; Encounter for screening for malignant neoplasm of colon Z12.11 and Personal history of colonic polyps Z86.010 [facility] [address] [place] [phone] 10/15/2024 George Nguyen Rectal bleed K62.5 ; Ulcerative colitis K51.90 ; Gastroesophageal reflux disease, esophagitis presence not specified K21.9 ; Tubulovillous adenoma of colon K63.5 and Encounter for screening for malignant neoplasm of colon Z12.11 [facility] [address] [place] [phone] 02/02/2024 George Nguyen [facility] [address] [place] [phone] 02/06/2024 George Nguyen [facility] [address] [place] [address] 02/11/2024 George Nguyen [facility] [address] [place] [phone] 03/05/2024 George Nguyen [facility] [address] [place] [phone] 04/02/2024 [facility] [address] [place] [address] 06/17/2024 George [facility] [address] [place] [address] 10/16/2024 [facility] [address] [place] [phone] 12/02/2024 George Nguyen Assessments Encounter Date Diagnosis [...] Name:George Nguyen , 02/03/2025 02:40:00 PM, [address] [facility], [address], [place], [address], Insurance Providers Payer Name Payer Address Payer Phone Subscriber Number Group Number Insured Name Patient Relationship to Insured Coverage Start Date Coverage End Date [facility] [address] [place] [phone] [id number] DAJA YOUNG Self - patient is the [...] Surgery Date(Month/Year) Parathyroid surgery scheduiled for at [facility] Vein surgery left leg - Dr. Aponte 01/2023 Lasik surgery on both eyes Cateracts left and right -Dr. Newton Right inguinal hernia repair Lumpectomies right and left breast for cancer with left sided node dissection RUL lung resection for cancer
--- OUTSIDE RECORDS SUMMARY | 2025-01-14 14:06 | XMS_ITS | Encounter Summary ---
Author Organization [facility] Address [address] [facility] [address] [place] [address] Phone Care Team Providers Care Certified Professional Coder Name Role Phone Joseph Valencia MD Primary Care Provider Encounter Details Date Type Department Care Team (Late st Contact Info) Description 04/23/2019 Ancillary Orders [facility],Outside Imaging [address] [place] [address] System, Provider Not In, [place] [address] Social History Tobacco Use Types Packs/Day Years [...] filedocumented in this encounter Care Teams Certified Professional Coder Relationship Specialty Start Date End Date Joesph Valencia MD [address] [place] [address] [place] [address] PCP - General Internal Medicine 04/25/19 documented as of this encounter Additional Source Comments The information contained in this document represents components of the legal health record. It is not the complete legal health record.[facility]
[2025-02-05 08:21] VITALS: BMI 26.8
--- NOTE | 2025-02-05 09:30 | HO.ANESPROP2 ---
Documented by User: Viji Chopra NP 02/05/25 09:33 HPI - Anesthesia Eval Consult details Narrative: 74yo F for Cystoscopy,BILATERAL Retrograde,with possible stent placement s/p colo 11/2024 with TIVA Cardiac optimized prior to colo. Follows [facility] Cardiology for hypertension, pulmonary hypertension, mild aortic stenosis, [id number] mitral regurgitation. Stable at 10/2024 office visit - chronic LE edema, resolution of atypical CP Follows [facility] Pulmo for asthma-copd overlap, Lung cancer- s/p RUL lobectomy. No chemo or radiation. Stable at 11/2024 office visit [facility] Active Problems Active Problems: All Active Problems Venous stasis dermatitis of both lower extremities (Acute) Gait instability (Acute) Preop cardiovascular exam (Acute) Ureteropelvic junction (UPJ) obstruction (Acute) Kyphosis (Acute) Osteoarthritis of knees, bilateral (Acute) Bilateral knee pain (Acute) Osteoporosis (Acute) Right elbow pain (Acute) Greater trochanteric bursitis of both hips (Acute) Edema (Acute) Chest discomfort (Acute) Anterior mediastinal lymphadenopathy (Acute) Nephrolithiasis (Acute) Non-rheumatic mitral regurgitation (Acute) Mitral annular calcification (Acute) Heart palpitations (Acute) Nonrheumatic aortic (valve) stenosis (Acute) Varicose veins of left lower extremity with inflammation (Acute) Invasive ductal carcinoma of left breast (Acute) Abnormal ultrasound of breast (Acute) Abnormal mammogram of left breast (Acute) History of left breast cancer (Acute) Breast cancer, right (Acute) Breast cancer (Acute) Essential hypertension (Acute) Hypercalcemia (Acute) Asthma-COPD overlap syndrome (Acute) Pulmonary hypertension (Chronic) Past Medical History Medical History Venous stasis dermatitis of both lower extremities Non-rheumatic mitral regurgitation Breast cancer Essential hypertension Hypercalcemia Slow to wake up after anesthesia Hx of radiation therapy Hiatal hernia PONV (postoperative nausea and vomiting) Anemia History of kidney stones Proctitis Arthritis Anxiety Hyperparathyroidism Lung cancer GERD (gastroesophageal reflux disease) Asthma-COPD overlap syndrome Pulmonary hypertension Family History Family History Mother Breast cancer Bone cancer Heart attack Father Abdominal aneurysm Enlarged heart Brother Lung cancer Brain cancer Family history of problems with anesthesia: No Surgical History Surgical History History of surgery on lower extremity History of parathyroidectomy H/O cataract extraction Hx of cardiac catheterization Hx of varicose vein ligation and stripping History of lumpectomy of both breasts History of right inguinal hernia repair History of lithotripsy History of lobectomy of lung Hx of colonoscopy (~01/04/24) History of esophagogastroduodenoscopy History of Problems with Anesthesia: No (ponv and delayed emergence ) Social History Social History Household Members: Family Household Members Other:: son and disabled sister Housing: House Are you a primary adult daycare coordinator to a significant other at home: No Do you presently have visiting nurse or other home services: No Alcohol intake: former Patient Tobacco Use Status: Former Tobacco user Tobacco use type: Cigarette Years Smoked: 31 e-Cigarette/Vaping Use: Never Used Second Hand Smoke Exposure: No Use of substances other than those prescribed or required for medical reasons: No Have you been hit, kicked, punched, or otherwise hurt by someone within the past year? If so, by whom?: No Are you DNR?: No Advance Directives: No Advance Directives Information Provided: Yes Advance Directives on File: No Patient : No : No Poor oral hygiene: No service: No Current occupational status: retired Cognitive needs: Yes (cane) Hearing needs: No Vision needs: Yes (Reading) Meds Allergies Allergy/AdvReac Type Severity Reaction Status Date / Time codeine Allergy Severe nausea Verified 01/06/25 16:47 eplerenone Allergy Severe Gastrointestinal Verified 01/06/25 16:47 Upset Penicillins Allergy Severe Anaphylaxis Verified 01/06/25 16:47 sulfamethoxazole (From Allergy Severe HIVES/RASH/ Verified 01/06/25 16:47 BACTRIM) SWELLING tamsulosin AdvReac Severe cardiac Verified 01/06/25 16:47 Home Medications ?Medication ?Instructions ?Recorded ?Confirmed ?Last Taken ?Type multivitamin 1 tab PO DAILY 10/06/20 02/09/25 09/27/23 History omeprazole 20 mg capsule,delayed 20 mg PO BID 10/06/20 02/09/25 12/01/24 History release clobetasol 0.05 % topical ointment 1 appl topical DAILY 12/06/20 02/09/25 Unknown History acetaminophen 500 mg tablet 1,000 mg PO Q6H PRN Pain 05/03/21 02/09/25 09/27/23 History ferrous sulfate 28 mg iron tablet 28 mg PO DAILY 05/03/21 02/09/25 12/31/23 History letrozole 2.5 mg tablet 2.5 mg PO DAILY 08/09/21 02/09/25 09/27/23 History carvedilol 3.125 mg tablet 6.25 mg PO BID 09/18/23 02/09/25 12/01/24 History mesalamine 1.2 gram tablet,delayed 4.8 g PO DAILY 03/27/24 02/09/25 Unknown History release potassium chloride 10 mEq 20 meq PO DAILY 11/10/24 02/09/25 Unknown History capsule,extended release mesalamine 1,000 mg rectal 1,000 mg SD BEDTIME 01/06/25 02/09/25 Unknown History suppository aspirin 81 mg tablet,delayed 81 mg PO DAILY 02/05/25 02/09/25 Unknown History release Exam Narrative Narrative: [place] cardiolite stress test 08/2024 Impression: 1. Myocardial perfusion imaging study shows no clear evidence of ischemia or infarction. 2. Gated LVEF is 65% during stress and 72% during rest. 3. Transient ischemic dilatation not present. ECHO 05/2024 Conclusions: - The left ventricular systolic function is normal. The calculated ejection fraction is 66% by biplane method. - Aortic valve sclerosis but no significant stenosis. - Severe mitral annular calcification with evidence of stenosis. Mitral valve area by VTI 1.5 sq cm. Mean gradient 6 mm Hg at 77/Min. EKG 03/2024 Details: Today , read by me, sinus rhythm with frequent PACs, nonspecific ST abnormality, rate 94, QTC 450 milliseconds Assessment and Plan Assessment Anesthesia Assessment: Chart Reviewed Final Anesthetic Review Family History of Problems with Anesthesia: No History of Problems with Anesthesia: No (ponv and delayed emergence ) Documented by User: Anupam Castro MD 02/09/25 08:29 [facility] Past Medical History Medical History Venous stasis dermatitis of both lower extremities Non-rheumatic mitral regurgitation Breast cancer Essential hypertension Hypercalcemia Slow to wake up after anesthesia Hx of radiation therapy Hiatal hernia PONV (postoperative nausea and vomiting) Anemia History of kidney stones Proctitis Arthritis Anxiety Hyperparathyroidism Lung cancer GERD (gastroesophageal reflux disease) Asthma-COPD overlap syndrome Pulmonary hypertension Functional capacity: independent ambulation Family History Family History Mother Breast cancer Bone cancer Heart attack Father Abdominal aneurysm Enlarged heart Brother Lung cancer Brain cancer Surgical History Surgical History History of surgery on lower extremity History of parathyroidectomy H/O cataract extraction Hx of cardiac catheterization Hx of varicose vein ligation and stripping History of lumpectomy of both breasts History of right inguinal hernia repair History of lithotripsy History of lobectomy of lung Hx of colonoscopy (~01/04/24) History of esophagogastroduodenoscopy Social History Social History Household Members: Family Household Members Other:: son and disabled sister Housing: House Are you a primary adult daycare coordinator to a significant other at home: No Do you presently have visiting nurse or other home services: No Alcohol intake: former Patient Tobacco Use Status: Former Tobacco user Tobacco use type: Cigarette Years Smoked: 31 e-Cigarette/Vaping Use: Never Used Second Hand Smoke Exposure: No Use of substances other than those prescribed or required for medical reasons: No Have you been hit, kicked, punched, or otherwise hurt by someone within the past year? If so, by whom?: No Are you DNR?: No Advance Directives: No Advance Directives Information Provided: Yes Advance Directives on File: No Patient : No : No Poor oral hygiene: No service: No Current occupational status: retired Cognitive needs: Yes (cane) Hearing needs: No Vision needs: Yes (Reading) Meds Allergies Allergy/AdvReac Type Severity Reaction Status Date / Time codeine Allergy Severe nausea Verified 01/06/25 16:47 eplerenone Allergy Severe Gastrointestinal Verified 01/06/25 16:47 Upset Penicillins Allergy Severe Anaphylaxis Verified 01/06/25 16:47 sulfamethoxazole (From Allergy Severe HIVES/RASH/ Verified 01/06/25 16:47 BACTRIM) SWELLING tamsulosin AdvReac Severe cardiac Verified 01/06/25 16:47 Home Medications ?Medication ?Instructions ?Recorded ?Confirmed ?Last Taken ?Type multivitamin 1 tab PO DAILY 10/06/20 02/09/25 09/27/23 History omeprazole 20 mg capsule,delayed 20 mg PO BID 10/06/20 02/09/25 12/01/24 History release clobetasol 0.05 % topical ointment 1 appl topical DAILY 12/06/20 02/09/25 Unknown History acetaminophen 500 mg tablet 1,000 mg PO Q6H PRN Pain 05/03/21 02/09/25 09/27/23 History ferrous sulfate 28 mg iron tablet 28 mg PO DAILY 05/03/21 02/09/25 12/31/23 History letrozole 2.5 mg tablet 2.5 mg PO DAILY 08/09/21 02/09/25 09/27/23 History carvedilol 3.125 mg tablet 6.25 mg PO BID 09/18/23 02/09/25 12/01/24 History mesalamine 1.2 gram tablet,delayed 4.8 g PO DAILY 03/27/24 02/09/25 Unknown History release potassium chloride 10 mEq 20 meq PO DAILY 11/10/24 02/09/25 Unknown History capsule,extended release mesalamine 1,000 mg rectal 1,000 mg SD BEDTIME 01/06/25 02/09/25 Unknown History suppository aspirin 81 mg tablet,delayed 81 mg PO DAILY 02/05/25 02/09/25 Unknown History release Exam Exam Date and Time: 02/09/30 Airway Mallampati Class: III TM Dist: >3cm Neck ROM: Full Loose/Missing/Broken Teeth: Yes (many missing teeth) Heart: rrr Lungs: cta Other: normal Assessment and Plan Assessment Anesthesia Assessment: Anesthesia Plan Discussed Final Anesthetic Review NPO: Yes ASA Class: III Final Preanesthetic Review: No Changes in Pt Med Stat, Meds/Allgs Chart Reviewed, Consent Obtained/Reviewed and Anes Risks/Benef Reviewed Patient Risk: Intermediate Procedure Risk: Low Anesthetic Plan Anesthetic Plan: GA
[2025-02-09] VITALS (7 sets, daily range): BP systolic 123–152; BP diastolic 46–50; PULSE 67–75; RESP 13–16; TEMP 36.3; O2SAT 94–99
--- NOTE | ~2025-02-09 | FL_ITS ---
EXAMINATION: FL GUIDANCE ONLY HISTORY: Cystoscopy, bilateral retrograde COMPARISON: Correlation is made with a CT of the abdomen without contrast dated 08/19/2024. TECHNIQUE: Fluoroscopy time: 54.7 seconds. Cumulative Dose: 9.16 mGy. Images: 4. FINDINGS: Fluoroscopic spot films from a retrograde pyelogram are submitted. On the left, there is a filling defect at the UPJ which could represent an air bubble. Clinical correlation is required. On the right, there is mild to moderate hydronephrosis with a normal caliber ureter. The final films demonstrate a right nephroureteral stent in place. FL/FL guidance in OR IMPRESSION: Fluoroscopy during procedure. Please see procedure report for additional information. Electronically signed by: George Wilson MD 02/09/2025 09:21 AM EDT
[2025-02-09] MEDS: Lactated Ringers 1,000 ML 100 ML IVCONT (07:46)
--- NOTE | 2025-02-09 08:13 | MHC.SHP ---
Pre-Procedural Eval Section A - 24 Hr Update-Section A only Date of Service: 02/09/25 The patient is an INPATIENT: No Changes since office visit: No Cold of Flu in the past 2 weeks, No New Medical Problems, No Changes in Medication and No Patient answered all questions The patient has been examined within 24 hours of the surgical procedure. The History & Physical has been completed within 30 days and I have reviewed it.: Yes Section B - Complete if H&P > 30 days Chief Complaint: Crossing vessel and stricture of ureter without hy Allergies: Allergies Allergy/AdvReac Type Severity Reaction Status Date / Time codeine Allergy Severe nausea Verified 01/06/25 16:47 eplerenone Allergy Severe Gastrointestinal Verified 01/06/25 16:47 Upset Penicillins Allergy Severe Anaphylaxis Verified 01/06/25 16:47 sulfamethoxazole (From Allergy Severe HIVES/RASH/ Verified 01/06/25 16:47 BACTRIM) SWELLING tamsulosin AdvReac Severe cardiac Verified 01/06/25 16:47 Plan I have reviewed the history and physical and performed a pertinent physical examination on my patient. No changes have occurred unless specified. Time Spent With Patient Time: Total time managing care of this patient today ____ minutes.
--- NOTE | 2025-02-09 09:09 | P.OP_ITS ---
Operative Note Operative Note Date of Service: 02/09/25 Narrative: PreOperative Diagnosis: Right hydro nephrosis Post Operative Diagnosis: Right UPJ narrowing Procedure: 1. Cystoscopy with bilateral retrograde 2. Dilatation of right ureteric orifice under fluoroscopy 3. Diagnostic right ureteroscopy 4. Stent placement Surgeon: Dr Jermaine Hammer Anesthesia: Sedation Indications for procedure: Hydronephrosis on right side with Mag 3 23% right, 77% left Procedure: After informed consent was verified the patient was brought to the operating room and placed in a supine position. Anesthesia was administered per protocol. The patient was placed in modified dorsal lithotomy position and prepped and draped in a sterile fashion. A safety pause time-out was performed. Laterality of procedure and antibiotics were confirmed, appropriate imaging was available A 22 [place] cystoscope was introduced per urethra. No abnormality was noted of urethra or bladder. Both ureteric orifices were seen in a normal position. The left ureter was cannulated with an open ended catheter and a retrograde examination was performed. No filling defects seen. On fluoroscopy peristalsis seen of left ureter with ejection of contrast. The right ureteric orifice was cannulated and a retrograde examination was performed. [place] nephrosis seen in the right renal pelvis. Fluoroscopy showed minimal peristalsis of injected fluid. A sensor guidewire was placed up to the level of the renal pelvis. The open- ended catheter and cystoscope were removed. A Manny dilator was used under fluoroscopy to dilate the ureteric orifice. Rigid ureteroscopy was performed alongside the wire. At the level of the UPJ there was narrowing. The scope was able to be advanced into the kidney. Had been decision was made to place a stent. A 7 [place] by 24 cm stent was loaded onto the wire and advanced up to the level of the renal pelvis under fluoroscopy. The stent was seen with appropriate coil within the renal pelvis and in the bladder after deployment. The patient tolerated the procedure well and was transferred in a stable condition to the recovery area. Pathology: Drains: As above
== END 2025-02-09 10:47 | disposition home or self-care (01) ==
PROVIDERS: PCP Internal Medicine; Visit Provider Urology
PROC: 0TJB8ZZ Inspection of Bladder, Via Natural or Artificial Opening Endoscopic (ICD-10-PCS; CPT 52000; principal; 2025-02-09 08:40)
DX: N13.0 Hydronephrosis with ureteropelvic junction obstruction (principal); N20.0 Calculus of kidney; C50.919 Malignant neoplasm of unspecified site of unspecified female breast; Z79.811 Long term (current) use of aromatase inhibitors; Z85.118 Personal history of other malignant neoplasm of bronchus and lung; I27.20 Pulmonary hypertension, unspecified; R60.0 Localized edema; I10 Essential (primary) hypertension; E78.00 Pure hypercholesterolemia, unspecified; E03.9 Hypothyroidism, unspecified; D64.9 Anemia, unspecified; E21.3 Hyperparathyroidism, unspecified; I35.0 Nonrheumatic aortic (valve) stenosis; I34.0 Nonrheumatic mitral (valve) insufficiency; M19.90 Unspecified osteoarthritis, unspecified site; J44.9 Chronic obstructive pulmonary disease, unspecified; F41.9 Anxiety disorder, unspecified; K21.9 Gastro-esophageal reflux disease without esophagitis; Z79.51 Long term (current) use of inhaled steroids; Z79.899 Other long term (current) drug therapy; Z79.82 Long term (current) use of aspirin; Z88.0 Allergy status to penicillin; Z88.2 Allergy status to sulfonamides; Z98.890 Other specified postprocedural states; Z79.891 Long term (current) use of opiate analgesic
CPT/HCPCS: 52344; 52332; C2617; J1100; J2003; J2405; J2704; J3010; Q9967

== ENCOUNTER → 2025-02-09 06:58 | Outpatient (BNV) | payer MEDICARE, SELFPAY | PROVIDERS: PCP Internal Medicine; Visit Provider Urology | DX: N13.39 Other hydronephrosis (principal) | CPT/HCPCS: 52332; 74420 ==

== ENCOUNTER 2025-03-05 14:31 | Outpatient (AMB) | payer MEDICARE, SELFPAY ==
--- OUTSIDE RECORDS SUMMARY | 2023-09-12 11:18 | XMS_ITS ---
Author Organization George Dias III, MD Address [address] [place] [address] Care Team Providers Care Completion Supervisor Name Role Phone Joseph Valencia MD Primary Care Provider Dr. George Ren III Unavailable [phone] REASON FOR VISIT wants lab results done on 09/10/2023 Encounters Encounter Location Date Provider Diagnosis Georeg Dias III, MD [address] [place] [address] [place] [address] 09/12/2023 George Dias Plan Of Treatment No Information Progress Notes * DAJA PEACE PDOB: (73 yo F)Acc No.[id number]:09/12/2023 Patient: Jaimee DAJA VASQUEZ :1950 A ge:73 Y S ex:Female Address:[address] [place] [address], [phone] * true * Date: Generated for Printi ng/Fanenag/eTransmitting on: 1 06:21 PM EDT
--- OUTSIDE RECORDS SUMMARY | 2023-11-06 11:00 | XMS_ITS ---
Author Organization [facility] Address [address] [place] [address] Care Team Providers Care Set Up Inspector Name Role Phone Joseph Valencia MD Primary Care Provider Merle Lopez [phone] Encounters Encounter Location Date Provider Diagnosis [address] [address] 11/06/2023 Merle Parker Plan Of Treatment No Information Progress Notes * Eliza RINCON PDOB: (75 yo F)Acc No.[id number]:11/06/2023 Progress Notes Patient: Jaimee AHMADIELISEO Eliza Tavares Provider: Darrick Parker DPM :1950 A ge:73 Y S ex:Female Date:11/06/2023 Address:[address] [place], [place] [phone] Pcp:Joseph Valencia MD Subjective: * Chief Complaints: [...] 0 11/06/2023 Generated for Printi ng/Faxing/eTransmitting on: 1 06:21 PM EDT
--- OUTSIDE RECORDS SUMMARY | 2024-01-04 07:40 | XMS_ITS ---
Author Organization [facility] Address [address] [place] [address] Care Team Providers Care Gift Manager Name Role Phone APOORVA HILL Primary Care Provider George Valente Unavailable [phone] George Dias MD Unavailable Unavailable REASON FOR VISIT colon screening Problems Problem Type SNOMED Code ICD Code Onset Dates Problem Status W/U Status Risk Notes Problem Ulcerative colitis (28091811) Ulcerative colitis (K51.90) Active confirmed Problem Diverticular disease of colon (962231982) Diverticulosis of large intestine without perforation or abscess without bleeding (K57.30) Active confirmed Encounters Encounter Location Date Provider Diagnosis [facility] Outpatient [address] [place] [id number] 01/04/2024 George Nguyen Colon cancer scree shirley [...] Name:George Nguyen , 09/09/2025 04:00:00 PM, [address], [address], [place], [address], Progress Notes * DAJA YOUNG PDOB: (75 yo F)Acc No.[id number]:01/04/2024 COLON WITH MAC Patient: DAJA JAY Provider: Satinder Nguyen MD :1950 A ge:73 Y S ex:Female Date:01/04/2024 Address:[address] [place], [place] [phone] Pcp:APOORVA HILL Subjective: * Chief Complaints: * [...] 01/04/2024 Generated for Pina bennett/Rozina/Ashleesmitting on: 1 06:21 PM EDT
--- OUTSIDE RECORDS SUMMARY | 2024-03-07 12:00 | XMS_ITS ---
Author Organization George Dias III, MD Address [address] [place] [address] Care Team Providers Care Rn Security Name Role Phone Joseph Valencia MD Primary [...] Date Provider Diagnosis George Dias III, MD [address] [place] [address] [place] [address] 03/07/2024 George Dias Ductal carcinoma in situ [...] Her reflux symptoms are well controlled with kvce-bfi-ztgcirp medication. 03/07/2024 Former smoker (ICD-10 - Z87.891) [...] * DAJA PEACE PDOB: (74 yo F)Acc No.[id number]:03/07/2024 Progress Notes Patient: Jaimee DAJA VASQUEZ P Provider: Satinder Dias MD :1950 A ge:74 Y S ex:Female Date:03/07/2024 Address:[address] [place] [phone] Pcp:Joseph Valencia MD Subjective: * Chief Complaints: [...] trying to get in touch with her school speech therapist, Dr. Zee, to discuss her heart condition [...] Lumpectomy and sentinel node biopsy left breast, [facility], Dr. Mixon reast cancer surgery in [...] :Her reflux symptoms are well controlled with efxk-dkc-dtnrzfq medication. 5 . F ormer smoker - [...] MD Date: Generated for Pina bennett/Rozina/Michellitting on: 06:21 PM EDT History and Physical Notes * [...]
--- OUTSIDE RECORDS SUMMARY | 2024-09-09 12:00 | XMS_ITS ---
Author Organization George Dias III, MD Address [address] [address] Care Team Providers Care Emergency Medical Technician Name Role Phone Joseph Valencia MD Primary Care Provider Dr. George Ren III Unavailable [phone] Allergies Allergen (clinical drug ingredient) Drug/Non Drug [...] Date Provider Diagnosis George Dias III, MD [address] [place] [address] [place] [address] 09/09/2024 George Dias Ductal carcinoma in situ [...] * DAJA PEACE PDOB: (75 yo F)Acc No.[id number]:09/09/2024 Progress Notes Patient: DAJA HAAS Provider: Satinder Dias MD :1950 A ge:74 Y S ex:Female Date:09/09/2024 Address:[address] [place] [address], [id number] Pcp:Joseph Valencia MD Subjective: * Chief Complaints: [...] medial right kidney, Former smoker since 1998, [id number] son, [id number] invasive ductal carcinoma left breast April [id number] [...] Lumpectomy and sentinel node biopsy left breast, [facility], Dr. Mixon 04/2021, Breast cancer surgery [...] 09/09/2024 Generated for Pina bennett/Rozina/Ashleesmitting on: 1 06:20 PM EDT History and Physical Notes * [...]
--- OUTSIDE RECORDS SUMMARY | 2024-12-01 09:40 | XMS_ITS ---
Author Organization [facility] Address [address] [facility] [address] [place] [address] Care Team Providers Care Assembler Movement Name Role Phone APOORVA HILL Primary Care Provider George Valente Unavailable [phone] George Dias MD Unavailable Unavailable REASON FOR VISIT ulcerative protocolitis Encounters Encounter Location Date Provider Diagnosis [facility] Outpatient [address] [place] [id number] 12/01/2024 George Nguyen Plan Of Treatment Next Appt Details Provider Name:George Nguyen , 09/09/2025 04:00:00 PM, [address] [facility], Suite [facility], [place], [address], Progress Notes * DAJA YOUNG PDOB: (75 yo F)Acc No.[id number]:12/01/2024 COLON WITH MAC Patient: Jaimee DAJA DOE Provider: Satinder Nguyen MD :1950 A ge:74 Y S ex:Female Date:12/01/2024 Address:[address] [place], [place] [phone] Pcp:APOORVA HILL Subjective: * Chief Complaints: * [...] 12/01/2024 Generated for Pina bennett/Rozina/Annabel on: 1 06:22 PM EDT
--- NOTE | 2025-03-05 14:37 | A.OFFVIS_ITS ---
Vital Signs 03/05/25 14:38 Height 5 ft 4.5 in Weight 150 lb BMI 25.3 BP 110/70 Blood Pressure Location Rt brachial Position Sitting Pulse 77 Pulse Source Pulse Oximeter Pulse Oximetry (%) 95 Oxygen Delivery Method Room Air Intake Visit Reasons: 3 Months Intake Note: Pt presents today with OA. Accompanied by: Self / Same As Patient Allergies codeine Allergy (Severe, Verified 03/05/25 14:38) nausea eplerenone Allergy (Severe, Verified 03/05/25 14:38) Gastrointestinal Upset Penicillins Allergy (Severe, Verified 03/05/25 14:38) Anaphylaxis sulfamethoxazole (From BACTRIM) Allergy (Severe, Verified 03/05/25 14:38) HIVES/RASH/SWELLING tamsulosin Adverse Reaction (Severe, Verified 03/05/25 14:38) cardiac HPI HPI 3 Months: Details: Cortisone injections lasted until a few weeks ago. Pain is not as severe as it was in the past. [facility] Medical History Venous stasis dermatitis of both lower extremities Non-rheumatic mitral regurgitation Breast cancer Essential hypertension Hypercalcemia Slow to wake up after anesthesia Hx of radiation therapy Hiatal hernia PONV (postoperative nausea and vomiting) Anemia History of kidney stones Proctitis Arthritis Anxiety Hyperparathyroidism Lung cancer GERD (gastroesophageal reflux disease) Asthma-COPD overlap syndrome Pulmonary hypertension Surgical History History of surgery on lower extremity History of parathyroidectomy H/O cataract extraction Hx of cardiac catheterization Hx of varicose vein ligation and stripping History of lumpectomy of both breasts History of right inguinal hernia repair History of lithotripsy History of lobectomy of lung Hx of colonoscopy (~01/04/24) History of esophagogastroduodenoscopy Family History Mother Breast cancer Bone cancer Heart attack Father Abdominal aneurysm Enlarged heart Brother Lung cancer Brain cancer Social History Household Members: Family Household Members Other:: son and disabled sister Housing: House Are you a primary childcare provider to a significant other at home: No Do you presently have visiting nurse or other home services: No Alcohol intake: former Patient Tobacco Use Status: Former Tobacco user Tobacco use type: Cigarette Years Smoked: 31 e-Cigarette/Vaping Use: Never Used Second Hand Smoke Exposure: No service: No Current occupational status: retired Cognitive needs: Yes (cane) Hearing needs: No Vision needs: Yes (Reading) Physical Exam Vital Signs: Last Vital Signs Pulse 77 03/05/25 14:38 BP 110/70 03/05/25 14:38 Pulse Ox 95 03/05/25 14:38 Oxygen Delivery Method Room Air 03/05/25 14:38 BMI result Body Mass Index 25.3 Const Other: General: Comfortable Skin: bilateral barragan erythema. MSK: Trochanteric bursa tenderness pain bilateral. Normal ROM of hips Office Procedures AMB Joint Injection/Aspiration Joint Injection/Aspiration Details: Bilateral trochanteric bursa Prep: site was prepped using aseptic technique Injected into each site: 40 mg of, Kenalog, with 1 mL of and 1% plain lidocaine Procedure: Informed verbal consent was obtained. The patient tolerated the procedure well. Postprocedure protocol was discussed with patient. Coding 99339 - Bilateral Large Joint Procedure code (CPT) selection complete AMB Joint Injection/Aspiration Coding 21067 - Bilateral Large Joint Procedure code (CPT) selection complete Office Meds lidocaine (PF) 10 mg/mL (1 %) injection solution Performing Provider: Jacobo Mtz MD Performing Location: [facility] Administered by: Lorenzo Mancera RN on 03/05/25 16:07 Dose Route Admin Location Dispensed Lot Number Expiration Date [facility] [employer] 1 mL Infiltration 2 mL [id number] 10/11/26 56484-195-25 [facility] Total Dispensed Waste 2 mL 50 % Kenalog 40 mg/mL suspension for injection Performing Provider: Jacobo Mtz MD Performing Location: [facility] Administered by: Lorenzo Mancera RN on 03/05/25 16:07 Dose Route Admin Location Dispensed Lot Number Expiration Date [facility] [employer] 40 mg intrabursal 1 mL [id number] 11/10/26 [address]-4 [employer] Total Dispensed Waste 1 mL 0 % lidocaine (PF) 10 mg/mL (1 %) injection solution Performing Provider: Jacobo Mtz MD Performing Location: [facility] [place] [facility] Administered by: Lorenzo Mancera RN on 03/05/25 16:07 Dose Route Admin Location Dispensed Lot Number Expiration Date [facility] [employer] 1 mL Infiltration 2 mL [id number] 10/11/26 33132-053-29 [employer] Total Dispensed Waste 2 mL 50 % Kenalog 40 mg/mL suspension for injection Performing Provider: Jacobo Mtz MD Performing Location: [facility] [facility] Administered by: Lorenzo Mancera RN on 03/05/25 16:07 Dose Route Admin Location Dispensed Lot Number Expiration Date [facility] [employer] 40 mg intrabursal 1 mL [id number] 11/10/26 [address]-7 [employer] Total Dispensed Waste 1 mL 0 % Assessment & Plan Assessment & Plan (1) Greater trochanteric bursitis of both hips: Comment: Recurrent. Pain is uncontrolled. She feels unbalanced as her gait is off. Code(s): M70.61 - Trochanteric bursitis, right hip; M70.62 - Trochanteric bursitis, left hip Category: Medical Plan: Patient received bilateral trochanteric bursa cortisone injections She will contact PCP to help arrange home physical therapy for strengthening of lower extremity, gait training, core strength, and neck strength. 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 RTC 3 months (2) Osteoporosis: Comment: History: No history of fragility fracture. History of hyperparathyroidism followed by endocrinology. DXA 09/05 lowest T-score -2.9 left femoral neck,-2.7 left total hip, -1.4 L-spine, left forearm -2.6. VFA 02/2023 without compression fracture. Alendronate started 05/28/2023-01/2024 Dr. Michael did not refill at follow-up visit in deferred further management to endocrinology but patient does not follow with wood box maker. Patient would like to resume alendronate. Code(s): M81.0 - Age-related osteoporosis without current pathological fracture Category: Medical Qualifiers: Osteoporosis type: age-related Presence of current pathological fracture: without current pathological fracture Qualified Code(s): M81.0 - Age- related osteoporosis without current pathological fracture Plan: Labs ordered prior to refilling alendronate Bone density due August 2026 I will prescribe calcium and vitamin-D supplement after lab results are reviewed Return to clinic in 3 months Orders: Orders AMB Joint Injection/Aspiration 03/05/25 M70.61 - Trochanteric bursitis, right hip, M70.62 - Trochanteric bursitis, left hip Calcium 03/05/25 M81.0 - Age-related osteoporosis without current pathological fracture TSH reflex Free T4 03/05/25 M81.0 - Age-related osteoporosis without current pathological fracture AMB Joint Injection/Aspiration 03/05/25 M70.61 - Trochanteric bursitis, right hip, M70.62 - Trochanteric bursitis, left hip Creatinine 03/05/25 M81.0 - Age-related osteoporosis without current pathological fracture Vitamin D 25-OH Total 03/05/25 M81.0 - Age-related osteoporosis without current pathological fracture Albumin Level 03/05/25 M81.0 - Age-related osteoporosis without current pathological fracture Coding Level of Care Code Est Pt Level 4 (59630) Complex EM visit Add On G2211 Diagnoses Greater trochanteric bursitis of both hips M70.61; M70.62 Age-related osteoporosis without current pathological fracture M81.0 Osteoporosis type: age-related Presence of current pathological fracture: without current pathological fracture CPT Codes Coding - 04459 - Bilateral Large Joint: 88824 - Bilateral Large Joint ([id number]) Coding - 78136 - Bilateral Large Joint: 92982 - Bilateral Large Joint ([id number])
[2025-03-05 14:38] VITALS: BP 110/70; PULSE 77; O2SAT 95; BMI 25.3
--- OUTSIDE RECORDS SUMMARY | 2025-03-05 18:21 | XMS_ITS | Clinical Summary ---
Author Organization [facility] Address [address] [facility] [address] [place] [address] Phone Care Team Providers Care Executive Business Coach Name Role Phone Joseph Valencia MD Primary Care Provider [phone] Allergies Active Allergy Reactions Criticality Noted Date [...] 1 (one) time each day 5 Active potassium chloride (MICRO-K) 10 MEQ CR capsule TAKE 2 CAPSULES (20 MEQ TOTAL) BY MOUTH 1 (ONE) TIME 180 capsule 5 Active carvedilol (COREG) 3.125 MG tablet TAKE 2 TABLETS BY MOUTH TWICE A DAY 360 tablet 1 5 Active Active Problems Problem Noted Date Diagnosed Date Essential (primary) hypertension 10/29/2023 Personal history of kidney stones 10/29/2023 Other secondary hypertension 08/02/2023 Encounters Date Type Department Care Team Description 01/17/2025 Refill [facility] [address] [place] [phone] Kiran Dickerson MD 12/17/2024 Refill [facility] [address] [place] [address] Carlos Manuel Wagoner MD from Last 3 [...] Visit [facility] [address] [place] [address] Carlos Manuel Wagoner MD [address] [facility] [address] [place] [address] Health Maintenance Due Date Last Done Comments Pneumococcal Vaccine: 50+ Years (3 of 3 - PCV20 or PCV21) 02/01/2015 12/07/2014, 12/05/2006 Influenza Vaccine (#1) 2025 5, 03/06/2011 Hepatitis B Vaccine Aged Out No longe r eligible based on patient's age to complete this topic Insurance [facility] Care Teams Executive Business Coach Relationship Specialty Start Date End Date Joseph Valencia MD [address] [place], [place] PCP - General Internal Medicine 08/02/23
--- OUTSIDE RECORDS SUMMARY | 2025-03-05 18:21 | XMS_ITS | Encounter Summary ---
Author Organization [facility] Address [address] [facility] [address] [address] [place] [address] Phone Care Team Providers Care Damage Prevention Coordinator Name Role Phone Joseph Valencia MD Primary Care Provider Encounter Details Date Type Department Care Team (Late st Contact Info) Description 03/28/2021 Ancillary Orders [facility],Outside Imaging [address] [place], [place] [id number] System, Provider Not In, [place] [address] Social History Tobacco Use Types Packs/Day Years [...] on filedocumented in this encounter Care Teams Damage Prevention Coordinator Relationship Specialty Start Date End Date Josehp Valencia MD [address] [place] [address] Dr [place], [place] [address] PCP - General Internal Medicine 04/25/19 documented as of this encounter Additional Source Comments The information contained in this document represents components of the legal health record. It is not the complete legal health record.[facility]
--- OUTSIDE RECORDS SUMMARY | 2025-03-05 18:21 | XMS_ITS | Encounter Summary ---
Author Organization [facility] Address [address] [facility] [address] [place] [address] Phone Care Team Providers Care Delivery Driver Assistant Name Role Phone Joseph Valencia MD Primary Care Provider Encounter Details Date Type Department Care Team (Late st Contact Info) Description 06/20/2021 Ancillary Orders [facility],Outside Imaging [address] [place] [address] System, Provider [place] In, [place] [address] Social History Tobacco Use Types Packs/Day Years [...] on filedocumented in this encounter Care Teams Delivery Driver Assistant Relationship Specialty Start Date End Date Joseph Valencia MD [address] [place] [address] [place] [address] PCP - General Internal Medicine 12/13/19 documented as of this encounter Additional Source Comments The information contained in this document represents components of the legal health record. It is not the complete legal health record.[facility]
--- OUTSIDE RECORDS SUMMARY | 2025-03-05 18:21 | XMS_ITS | Patient Health Record ---
Author Organization George Dias III, MD Address [address] [place] [address] [place] [address] Care Team Providers Care Hardboard Panel Printer Name Role Phone Joseph Valencia MD Primary [...] Problem Status W/U Status Risk Notes Problem 0513562 Former smoker (Z87.891) Active confirmed She has been abstinent since 1998. She has a plan to prevent relapse in times of stress and illness. Problem Fibromyalgia (693304739) Fibromyalgia (M79.7) Active confirmed Her symptoms ar e stable and unchanged. Problem 695341744 Overweight (E66.3) Active confirmed This problem duron s resolved and will be removed from her problem list Problem 73135024 Allergy to sulfa drugs (Z88.2) Active confirmed Problem 299318985 GERD without esophagitis (K21.9) Active confirmed Her reflux symptoms are well controlled with oebn-qek-jgbrjdj medication. Problem 14472469 Essential hypertension (I10) Active confirmed Her blood pressure is 134/71. She is stable and no change in her regimen was needed. I recommended continued sodium restriction. Problem 71427061 Penicillin allergy (Z88.0) Active confirmed Problem 508877335810997 Hematochezia (K92.1) Active confirmed #4 days. She isn't visible streaks of red blood in her stool. She will be referred to her gastroenterologi st for colonoscopy. 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 Problem 595154962 Renal cyst (N28.1) Active confirmed Diagnosis will be followed. 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 She has begun on anastrozole. She will have a radiation therapy consultation. Because of diffuse aches and pains. We have temporarily stopped anastrozole. Problem Psoriatic arthritis (006965210) Psoriatic arthritis (L40.50) Active confirmed She has [...] Date Provider Diagnosis George Dias III, MD [address] [place] [address] [place] [address] 03/07/2024 George Dias Ductal carcinoma in situ [...] Her reflux symptoms are well controlled with kaus-lzs-usparpq medication. 03/07/2024 Former smoker (ICD-10 - Z87.891) [...] Insured Coverage Start Date Coverage End Date [address] [place] [address] [phone] [id number] DAJA POWELL Self - patient is the [...] l right kidney former smoker since 1998 [id number] son [id number] invasive ductal carcinoma left breast April [id number] DCIS right breast, surgery and RT Breast Cancer in 2021, High Blood Pressu re, Ulcerated Colitis Surgical History Surgery Date(Month/Year) Breast cancer surgery in 2021 2021 Lumpectomy and sentinel node biopsy left breast, [facility], Dr. Mixon 04/2021 multiple negative endometrial biopsies Right breast lumpectomy with 2 needle lo calization (DP) 03/2019 36 weeks radiation . Left breast 11/1998 1 major vein removed- Dr. Lo 2 major veins removed right leg Lumpectomy and sentinel nodes left breas t 1998 right upper lobectomy, stage I adenocarc inoma of, Dr. Scherer 1998
--- OUTSIDE RECORDS SUMMARY | 2025-03-05 18:21 | XMS_ITS | Encounter Summary ---
Author Organization [facility] Address [address] [facility] [address] [place] [address] Phone Care Team Providers Care Nursing Informatics Specialist Name Role Phone Joseph Valencia MD Primary Care Provider Encounter Details Date Type Department Care Team (Late st Contact Info) Description 06/20/2021 Ancillary Orders [facility],Outside Imaging [address] [place] [address] System, Provider [place] In, [place] [address] Social History Tobacco Use Types Packs/Day Years [...] on filedocumented in this encounter Care Teams Nursing Informatics Specialist Relationship Specialty Start Date End Date Joseph Valencia MD [address] [place] [address] [place] [id number] PCP - General Internal Medicine 12/13/19 documented as of this encounter Additional Source Comments The information contained in this document represents components of the legal health record. It is not the complete legal health record.[facility]
--- OUTSIDE RECORDS SUMMARY | 2025-03-05 18:21 | XMS_ITS | Clinical Summary ---
Author Organization [facility] Address [address] [place], [place] [phone] Phone Care Team Providers Care Hot Top Liner Helper Name Role Phone Joseph Valencia MD Primary Care Provider Allergies Active Allergy Reactions Criticality Noted Date Comments Ipratropium [place] Cough 04/25/2019 Penicillins Unknown 04/25/2019 Sulfa (Sulfonamide [...] 1967 ZOSTER VACCINES (1 of 2) 01/30/1968 OSTEOPOROSIS SCREENING INITI AL (ONE-TIME) 2014 PNEUMOCOCCAL VACCINES (50+ years) (3 of 3 - PPSV23, PCV20 or PCV21) 02/01/2015 12/07/2014, 12/05/2006 RSV VACCINE (1 - 1-dose 75+ series) 01/30/2024 Adult Td,Tdap Booster 10/12/2024 10/12/2014 , 12/02/2012, 10/12/2002 INFLUENZA VACCINE (#1) 2024 5, 03/06/2011 COVID-19 VACCINE (2024-2 6 season) 2025 04/01/2021 HEPATITIS A VACCINES Aged Out No long [...] topic Medical Devices Not on file Insurance [employer] RE[employer] MEDICARE HMO REPLACEMENT [employer] RE[employer] Care Teams Hot Top Liner Helper Relationship Specialty Start Date End Date Joseph Valencia MD [address] [place] [address] [address] [place] [address] PCP - General Internal Medicine 04/25/19 Additional Source Comments The information contained in this document represents components of the legal health record. It is not the complete legal health record.[facility]
--- OUTSIDE RECORDS SUMMARY | 2025-03-05 18:22 | XMS_ITS | Encounter Summary ---
Author Organization [facility] Address [address] [facility] [address] [place] [address] Phone Care Team Providers Care Business Analyst Ecommerce Name Role Phone Joseph Valencia MD Primary Care Provider Encounter Details Date Type Department Care Team (Late st Contact Info) Description 04/11/2019 Ancillary Orders [facility],Outside Imaging [address] [place], [place] [phone] System, Provider [place] In, [place] [address] Social History Tobacco Use Types Packs/Day Years [...] on filedocumented in this encounter Care Teams Business Analyst Ecommerce Relationship Specialty Start Date End Date Joseph Valencia MD [address] [place] [address] [place] [address] PCP - General Internal Medicine 04/25/19 documented as of this encounter Additional Source Comments The information contained in this document represents components of the legal health record. It is not the complete legal health record.[facility]
--- OUTSIDE RECORDS SUMMARY | 2025-03-05 18:22 | XMS_ITS | Patient Health Record ---
Author Organization [facility] Address [address] [place] [address] Care Team Providers Care Operational Intelligence Analyst Name Role Phone APOORVA HILL Primary Care Provider George Valente Unavailable [phone] George Dias MD Unavailable Unavailable Allergies Allergen (clinical drug ingredient) Drug/Non Drug Allergy documented on EMR Reaction Allergy Type Onset Date Status codeine Codeine Unknown Drug Allergy Active Substance with sulfonamide structure and antibacterial mechanism of action (substance) Sulfa (uncoded) Unknown Allergy Active Penicillin (uncoded) Unknown Allergy Active Results Component Value Reference Range Notes Pathology Reviewed date:02/03/2025 06:03:21 PM Interpretation: Performing Lab:[facility], [address] [place] [id number] Notes/Report: Reason For Referral No Information Medications Medication SIG (Take, Route, Frequency, Duration) Notes Start Date End Date Status Iron Active Omeprazole 20 MG 1 Orally BID Active Turmeric Not-Taking Albuterol Sulfate (2.5 MG/3ML) 0.083% INHALE 1 VIAL EVERY 4 HOURS BY MOUTH NEEDED Inhalation; Duration: 25 Active Mesalamine 1000 MG 1 suppository at bedtime Rectal Once every night; Duration: 30 days 12/02/2024 Active Multivitamin - 1 tablet Orally Once a day; Duration: 30 day(s) Active Potassium Chloride ER 10 MEQ Oral; Duration: 90 Days Active Aspir-81 once a day Not-Takin g dilTIAZem HCl ER Coated Beads 180 MG TAKE ONE CAPSULE BY MOUTH DAILY Oral; Duration: 90 Active ALPRAZolam 0.5 MG as directed Orally 4x a day Active Mesalamine 1000 MG 1 Rectal Nightly; Duration: 30 days Active [employer] Active Furosemide 40 MG 1 tablet Orally 40 mg in am 20 mg in pm Active Tylenol Extra Strength Active Potassium Chloride ER 10 MEQ Oral; Duration: 90 Active Letrozole 2.5 MG Oral; Duration: 90 Active Carvedilol 3.125 MG PLEASE SEE ATTACHED FOR DETAILED DIRECTIONS Oral; Duration: 90 Active Mesalamine 1.2 GM 4 Orally Once a day; Duration: 30 day(s) 02/02/2024 Not-Taking Albuterol Sulfate HFA 108 (90 Base) MCG/ACT Inhalation; Duration: 25 Active Lialda 1.2 GM 4 Orally Once a day; Duration: 30 day(s) Please let my office know if the insurance is not covering this and we can try a different mesalamine product. Thanks 01/05/2024 Not-Taking Mesalamine 1000 MG 1 suppository at bedtime Rectal Every night at bedtime; Duration: 30 day(s) 07/20/2023 Not-Taking Immunizations Vaccine Route [...] Problem Status W/U Status Risk Notes Problem Epigastric pain (31570255) Epigastric abdominal pain (R10.13) Active confirmed Problem Screening for malignant neoplasm of colon (851542872) Encounter for screening for malignant neoplasm of colon (Z12.11) Active confirmed Problem History of polyp of colon (situation) (828420622) Personal history of colonic polyps (Z86.010) Active confirmed Problem Diverticular disease of colon (466012759) Diverticulosis of large intestine without perforation or abscess without bleeding (K57.30) Active confirmed Problem Gastroesophageal reflux disease (415785225) Gastroesophageal reflux disease, esophagitis presence not specified (K21.9) Active confirmed Problem Hemorrhage of rectum and anus (804935838) Rectal bleed (K62.5) Active confirmed Problem Tubulovillous adenoma of colon (4939912897) 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 Problem Ulcerative colitis (08373057) Ulcerative colitis (K51.90) Active confirmed Problem Proctitis (6807235) 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) Active c onfirmed Problem Diverticulosis of colon (236357211) Diverticulosis of colon (K57.30) Active confirmed Problem History of polyp of colon (situation) (941383248) History of colon polyps (Z86.0100) Active confirmed Vital Signs Temperature 97.6 degrees Fahrenheit 02/03/2025 Blood pressure diastolic 01 mm Hg 02/03/2025 Height 65 in 02/03/2025 Blood pressure systolic 001 mm Hg 02/03/2025 Weight 157 lbs 02/03/2025 BMI 26.12 kg/m2 02/03/2025 Procedures Procedure Date Ordered Date Performed Result Body Sit e COLONOSCOPY 10/15/2024 N/A Encounters Encounter Location Date Provider Diagnosis [facility] Outpatient [address] [place] [id number] 12/01/2024 George Nguyen [facility] [address] [place] [phone] 06/11/2024 George Nguyen Ulcerative colitis K51.90 ; Encounter for screening for malignant neoplasm of colon Z12.11 and Personal history of colonic polyps Z86.010 [facility] [address] [place] [phone] 10/15/2024 George Nguyen Rectal bleed K62.5 ; Ulcerative colitis K51.90 ; Gastroesophageal reflux disease, esophagitis presence not specified K21.9 ; Tubulovillous adenoma of colon K63.5 and Encounter for screening for malignant neoplasm of colon Z12.11 [facility] [address] [place] [phone] 02/03/2025 George Nguyen Encounter for screen ing for malignant neoplasm of colon Z12.11 ; Proctitis K62.89 ; Ulcerative colitis K51.90 and History of colon polyps Z86.0100 [facility] [address] [place] [address] 03/05/2024 George Nguyen [facility] [address] [place] [address] 04/02/2024 George Nguyen [facility] [address] [place] [phone] 06/17/2024 George Nguyen [facility] [address] [place] [address] 10/16/2024 George Nguyen [facility] [address] [place] [phone] 12/02/2024 George Nguyen Assessments Encounter Date Diagnosis [...] keep you advised of her progress. 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 Things seem stable, albeit on no particular medication for the colitis. However, I did advise her that I am concerned things will relapse again as she has now been off of the mesalamine and I encouraged her to go back on it. I advised her to use at least 3 of the mesalamine daily although I advised her that she should ideally use 4 every day on a long-term basis. She does have these mesalamine suppository at home but she does not think she will be able to use it due to her poor mobility and arthritis. Therefore I encouraged her to get back on the oral mesalamine and then stay on that long-term to hopefully maintain the current remission We did review the colonoscopy findings in regard to the colon polyps and I have recommended a follow-up colonoscopy for the summer as a 1 year follow-up. The ileocecal valve needs to be reinspected in regard to the flat adenomatous polyp with serrated features that was removed earlier this year I did advise her to continue to avoid all aspirin and NSAIDs to hopefully help maintain remission of the proctitis. I have given her an appointment for next Spring such that we can then schedule her follow-up colonoscopy for the summer. I did advise her to definitely call me prior to that if she has any problems or questions I can be of assistance with, including if she needs any refills on her mesalamine. Daja was comfortable with this plan. Thank you again for allowing me to participate in Daja's care. I shall continue to keep you advised of her progress.. 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 Things seem stable, albeit on no particular medication for the colitis. However, I did advise her that I am concerned things will relapse again as she has now been off of the mesalamine and I encouraged her to go back on it. I advised her to use at least 3 of the mesalamine daily although I advised her that she should ideally use 4 every day on a long-term basis. She does have these mesalamine suppository at home but she does not think she will be able to use it due to her poor mobility and arthritis. Therefore I encouraged her to get back on the oral mesalamine and then stay on that long-term to hopefully maintain the current remission We did review the colonoscopy findings in regard to the colon polyps and I have recommended a follow-up colonoscopy for the summer as a 1 year follow-up. The ileocecal valve needs to be reinspected in regard to the flat adenomatous polyp with serrated features that was removed earlier this year I did advise her to continue to avoid all aspirin and NSAIDs to hopefully help maintain remission of the proctitis. I have given her an appointment for next Spring such that we can then schedule her follow-up colonoscopy for the summer. I did advise her to definitely call me prior to that if she has any problems or questions I can be of assistance with, including if she needs any refills on her mesalamine. Daja was comfortable with this plan. Thank you again for allowing me to participate in Daja's care. I shall continue to keep you advised of her progress.. 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 Things seem stable, albeit on no particular medication for the colitis. However, I did advise her that I am concerned things will relapse again as she has now been off of the mesalamine and I encouraged her to go back on it. I advised her to use at least 3 of the mesalamine daily although I advised her that she should ideally use 4 every day on a long-term basis. She does have these mesalamine suppository at home but she does not think she will be able to use it due to her poor mobility and arthritis. Therefore I encouraged her to get back on the oral mesalamine and then stay on that long-term to hopefully maintain the current remission We did review the colonoscopy findings in regard to the colon polyps and I have recommended a follow-up colonoscopy for the summer of 2025 as a 1 year follow-up. The ileocecal valve needs to be reinspected in regard to the flat adenomatous polyp with serrated features that was removed earlier this year I did advise her to continue to avoid all aspirin and NSAIDs to hopefully help maintain remission of the proctitis. I have given her an appointment for next Spring such that we can then schedule her follow-up colonoscopy for the summer. I did advise her to definitely call me prior to that if she has any problems or questions I can be of assistance with, including if she needs any refills on her mesalamine. Daja was comfortable with this plan. Thank you again for allowing me to participate in Daja's care. I shall continue to keep you advised of her progress.. 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 Things seem stable, albeit on no particular medication for the colitis. However, I did advise her that I am concerned things will relapse again as she has now been off of the mesalamine and I encouraged her to go back on it. I advised her to use at least 3 of the mesalamine daily although I advised her that she should ideally use 4 every day on a long-term basis. She does have these mesalamine suppository at home but she does not think she will be able to use it due to her poor mobility and arthritis. Therefore I encouraged her to get back on the oral mesalamine and then stay on that long-term to hopefully maintain the current remission We did review the colonoscopy findings in regard to the colon polyps and I have recommended a follow-up colonoscopy for the summer as a 1 year follow-up. The ileocecal valve needs to be reinspected in regard to the flat adenomatous polyp with serrated features that was removed earlier this year I did advise her to continue to avoid all aspirin and NSAIDs to hopefully help maintain remission of the proctitis. I have given her an appointment for next Spring such that we can then schedule her follow-up colonoscopy for the summer. I did advise her to definitely call me prior to that if she has any problems or questions I can be of assistance with, including if she needs any refills on her mesalamine. Daja was comfortable with this plan. Thank you again for allowing me to participate in Daja's care. I shall continue to keep you advised of her progress.. 10/15/2024 Encounter for screening for malignant neoplasm [...] Name:George Nguyen , 09/09/2025 04:00:00 PM, [address], [address], [place], [address], Insurance Providers Payer Name Payer Address Payer Phone Subscriber Number Group Number Insured Name Patient Relationship to Insured Coverage Start Date Coverage End Date [facility] [address] [place] [address] [phone] [id number] DAJA YOUNG Self - patient is the insured Medical (General) History Medical History History ICD Code Lung cancer - 1998- Removed upper right lobe Breast cancer-1998 Left- surgery and XRT ; and 03/2019 Right- surgery and XRT GERD Overactive parathyroid Anxiety Arthritis Colonoscopy in 2004 was neg. except for a hyperplastic polyp Denies MA,DM,CVA,renal disease COPD Colonscopy in 01/2020 with a [...] colitis. Scoliosis and osteoporosis Colonoscopy 11/2024 with tubu lar adenomas/serrated polyps, including a relatively flat one on the ICV, removed, and with active proctitis Scheduled for a cystoscopy t February [address] Hammer for issues with kidney stones Surgical History Surgery Date(Month/Year) Parathyroid surgery scheduiled for at [facility] Vein surgery left leg - Dr. Aponte 01/2023 Lasik surgery on both eyes Cateracts left and right -Dr. Newton Right inguinal hernia repair Lumpectomies right and left breast for cancer with left sided node dissection RUL lung resection for cancer
--- OUTSIDE RECORDS SUMMARY | 2025-03-05 18:22 | XMS_ITS | Patient Health Record ---
Author Organization [facility] Address [address] [place] [address] Care Team Providers Care Laboratory Mechanic Helper Name Role Phone Joseph Valencia MD Primary Care Provider UnavailMerle Mejia Unavailable [phone] Allergies Allergen (clinical drug ingredient) Drug/Non Drug [...] Status W/U Status Risk Notes Problem Psoriasis (9005204) Psoriasis (L40.9) Active confirmed Problem Varicose veins of bilateral lower limbs (0992506728530 9106) Varicose veins of both legs with edema (I83.893) Active confirmed Plan Of Treatment Pending Test Test Name Order Date Ultrasound : Extremity Ultrasound Non-Va sc 04/12/2018 X ray : Foot, left 3V 03/22/2018 X ray : Foot, right 3V 03/22/2018 67449- Ganglion Cyst Injection/Aspiratio n 03/22/2018 Insurance Providers Payer Name Payer Address Payer Phone Subscriber Number Group Number Insured Name Patient Relationship to Insured Coverage Start Date Coverage End Date [employer] [place] [employer] [address] [place] [address] [phone] [id number] Eliza Shields Self - patient is the insured Medical (General) History Medical History History ICD Code Anxiety Back,Hip,and Knee pain Cancer Hiatal hernia Sciatica Psoriasis/eczema Stomach ulcer hyperparathyroidism Surgical History Surgery Date(Month/Year) lung lobectomy right and left 1998
--- OUTSIDE RECORDS SUMMARY | 2025-03-05 18:22 | XMS_ITS | Encounter Summary ---
Author Organization [facility] Address [address] [place] [address] Phone Care Team Providers Care Market President Name Role Phone Joseph Valencia MD Primary Care Provider Encounter Details Date Type Department Care Team (Late st Contact Info) Description 04/23/2019 Ancillary Orders [facility],Outside Imaging [address] [place] [address] System, Provider Not In, [place] [address] Social History Tobacco Use Types Packs/Day Years [...] on filedocumented in this encounter Care Teams Market President Relationship Specialty Start Date End Date Joseph Valencia MD [address] [place] [address] [place] [id number] PCP - General Internal Medicine 04/25/19 documented as of this encounter Additional Source Comments The information contained in this document represents components of the legal health record. It is not the complete legal health record.[facility]
== END 2025-03-05 15:59 | disposition home or self-care (01) ==
LOC: HO.RHES 14:31
PROVIDERS: PCP Internal Medicine; Visit Provider Internal Medicine Rheumatology
DX: M70.61 Trochanteric bursitis, right hip (principal); M70.62 Trochanteric bursitis, left hip
CPT/HCPCS: 20610; 99214

== ENCOUNTER 2025-03-05 14:31 | Outpatient (REF) | payer MEDICARE, SELFPAY ==
--- OUTSIDE RECORDS SUMMARY | 2023-09-19 11:00 | XMS_ITS | Continuity of Care Document ---
Author Organization [facility] Address [address] [place] [address] Phone Care Team Providers Care Flight Engineer Inspector Name Role Phone Yasmany KEY, GARDENIA, George [...] [place] & [place] [facility], [address] [place] [address] [address], [place], [id number], [place] tel:[phone] R - [place] - [place] Varicose veins of bilateral lower extremities with other complicationsL ocalized edemaCramp and spasmPruritus, unspecifiedEss ential (primary) hypertension 4 Yasmany KEY, GARDENIA, CROW Vazquez. [address], [address], [facility], [id number] , [place]. tel:[phone] Offic Cons New/estab Mod-hi 60- [place] & [place] [facility], [address] [place] [address] [address], [place], [id number], tel:[phone] CVR - [place] - [place] Essential (primary) hypertensionPr uritus, unspecifiedPai n in left legCramp and spasmLocalized edemaVaricose veins of bilateral lower extremities with other complicationsP ain in right lower legPain in left lower legPain in right leg 4 Yasmany KEY RVT, CROW Vazquez. [address] [place] [address], [facility] [place] [place], [place], [id number] , [place]. tel:[phone] [facility], [address] [place] [address] [address] 1000[facility] [address], [id number], tel:[phone] CVR - [facility] Varicose veins of bilateral lower extremities with pain 4 Yasmany KEY RVT, CROW Vazquez. [address] [place] [address], Lalit willis [place], [id number] , [place]. tel:[phone] Referring Provider: George Jade MD, RVT, CROW, [address] [place] [address], [place], [address] . tel:[phone] Family History Family Member Type Diagnosis Age At Onset No Information Payers Payer name Insurance type Covered alliance party ID Grayson jacome(s) [employer] [place] [employer] CI [id number] Social History Type Description Quantity Date Captured [...]
[2025-03-05 18:28] LABS: Albumin Level 3.9 g/dL (3.5-5.0); Calcium 8.9 mg/dL (8.4-10.2); Estimated Glomerular Filt Rate > 60
== END 2025-03-05 14:32 | disposition home or self-care (01) ==
LOC: HO.HKASLDS 14:31
PROVIDERS: PCP Internal Medicine; Visit Provider Internal Medicine Rheumatology
DX: M70.61 Trochanteric bursitis, right hip (principal); M70.62 Trochanteric bursitis, left hip; M81.0 Age-related osteoporosis without current pathological fracture; Z87.891 Personal history of nicotine dependence; Z79.83 Long term (current) use of bisphosphonates; Z86.39 Personal history of other endocrine, nutritional and metabolic disease
CPT/HCPCS: 20610; 36415; 82040; 82306; 82310; 82565; 84443; 99212; J2003; J3301

== ENCOUNTER → 2025-03-17 13:36 | Outpatient (REF) | payer MEDICARE, SELFPAY ==
--- NOTE | ~2025-03-17 | NM_ITS ---
EXAMINATION: NM KIDNEY FLOW FUNCTION WITH RX HISTORY: N20.0 - Calculus of kidney. Status post placement of a right ureteral stent. TECHNIQUE: A renogram and renal scan were performed following the intravenous administration of 10 mCi technetium 99m-DTPA. The patient received 34 mg IV Lasix approximately 30 minutes after injection of the radiopharmaceutical. COMPARISON: Comparison is made with the prior examination dated 12/02/2024. Correlation is also made with a CT of the abdomen and pelvis without contrast dated 08/31/2024. FINDINGS: There is symmetric blood flow to both kidneys. There is greater cortical uptake of the radiopharmaceutical on the left. The split function is 76.4% on the left and 23.6% on the right, similar to the prior study. Excretion is seen bilaterally. There is dilatation of the right renal pelvis. After the administration of intravenous Lasix, there is washout from the bilateral renal pelves, although this is more rapid on the left. The halftime of excretion is approximately 9.5 minutes on the left and 4.8 minutes on the right. NM/NM renal flow w pharm int IMPRESSION: Dilatation of the right renal pelvis which demonstrates washout after Lasix administration. Findings are consistent with resolution of right UPJ obstruction after placement of a nephroureteral stent. Electronically signed by: George Wilson MD 03/18/2025 07:55 AM RENÉ
--- OUTSIDE RECORDS SUMMARY | 2025-03-17 16:37 | XMS_ITS | Encounter Summary ---
Author Organization [facility] Address [address] [facility] [address] [place] [address] Phone Care Team Providers Care Human Resource Analyst Name Role Phone Joseph Valencia MD Primary Care Provider Encounter Details Date Type Department Care Team (Late st Contact Info) Description 06/20/2021 Ancillary Orders [facility],Outside Imaging [address] [place] [address] System, Provider [place] In, [place] [address] Social History Tobacco Use Types Packs/Day Years [...] on filedocumented in this encounter Care Teams Human Resource Analyst Relationship Specialty Start Date End Date Joseph Valencia MD [address] [place] [address] [place] [address] PCP - General Internal Medicine 12/13/19 documented as of this encounter Additional Source Comments The information contained in this document represents components of the legal health record. It is not the complete legal health record.[facility]
--- OUTSIDE RECORDS SUMMARY | 2025-03-17 16:37 | XMS_ITS | Encounter Summary ---
Author Organization [facility] Address [address] [facility] [address] [place] [address] Phone Care Team Providers Care Crematory Attendant Name Role Phone Joseph Valencia MD Primary Care Provider Encounter Details Date Type Department Care Team (Late st Contact Info) Description 06/20/2021 Ancillary Orders [facility],Outside Imaging [address] [place] [address] System, Provider [place] In, [place] [address] Social History Tobacco Use Types Packs/Day Years [...] on filedocumented in this encounter Care Teams Crematory Attendant Relationship Specialty Start Date End Date Joseph Valencia MD [address] [place] [address] [place] [address] PCP - General Internal Medicine 12/13/19 documented as of this encounter Additional Source Comments The information contained in this document represents components of the legal health record. It is not the complete legal health record.[facility]
--- OUTSIDE RECORDS SUMMARY | 2025-03-17 16:38 | XMS_ITS | Clinical Summary ---
Author Organization [facility] Address [address] [facility] [address] [place], [place] [phone] Phone Care Team Providers Care News Correspondent Name Role Phone Joseph Valencia MD Primary Care Provider Allergies Active Allergy Reactions Criticality Noted Date Comments Ipratropium [place] Cough 04/25/2019 Penicillins Unknown 04/25/2019 Sulfa (Sulfonamide [...] Insurance [employer] Member Subscriber Plan / Payer (Ef fective 2017-Present) Name:Eliza Ann Relation to Subscriber:Self Name:Eliza Ann Payer ID:Not on file Type:Medicare Address: [address] [address] [employer] Member Subscriber Plan / Payer (Ef fective 2017-Present) Name:Eliza Ann Relation to Subscriber:Self Name:Eliza Ann Payer ID:Not on file Type:Medicare Address: [address] [address] [employer] MEDICARE HMO REPLACEMENT Member Subscriber Plan / Payer (Ef fective 2017-Present) Name:Eliza Ann Relation to Subscriber:Self Name:Eliza Ann Payer ID:Not on file Type:Medicare Address: [address] [address] [employer] Member Subscriber Plan / Payer (Ef fective 2017-Present) Name:Eliza Ann Relation to Subscriber:Self Name:Eliza Ann Payer ID:Not on file Type:Medicare Address: [address] [address] [employer] Member Subscriber Plan / Payer (Ef fective 2017-Present) Name:Eliza Ann Relation to Subscriber:Self Name:Eliza Ann Payer ID:Not on file Type:Medicare Address: [address] [address] [employer] Care Teams News Correspondent Relationship Specialty Start Date End Date Joseph Valencia MD [address] [place] [address] [address] [place] [address] PCP - General Internal Medicine 04/25/19 Additional Source Comments The information contained in this document represents components of the legal health record. It is not the complete legal health record.[facility]
--- OUTSIDE RECORDS SUMMARY | 2025-03-17 16:38 | XMS_ITS | Encounter Summary ---
Author Organization [facility] Address [address] [place] [address] Phone Care Team Providers Care Data Storage Specialist Name Role Phone Joseph Valencia MD Primary Care Provider Encounter Details Date Type Department Care Team (Late st Contact Info) Description 04/23/2019 Ancillary Orders [facility],Outside Imaging [address] [place] [address] System, Provider [place] In, [place] [address] Social History Tobacco Use Types Packs/Day Years [...] filedocumented in this encounter Care Teams Data Storage Specialist Relationship Specialty Start Date End Date Joseph Valencia MD [address] [place] [address] [place] [address] PCP - General Internal Medicine 04/25/19 documented as of this encounter Additional Source Comments The information contained in this document represents components of the legal health record. It is not the complete legal health record.[facility]
--- OUTSIDE RECORDS SUMMARY | 2025-03-17 16:38 | XMS_ITS | Encounter Summary ---
Author Organization [facility] Address [address] [place] [address] Phone Care Team Providers Care Deputy Sheriff Lieutenant Name Role Phone Joseph Valencia MD Primary Care Provider Encounter Details Date Type Department Care Team (Late st Contact Info) Description 03/28/2021 Ancillary Orders [facility],Outside Imaging [address] [place], [place] [phone] System, Provider [place] In, [place] [address] Social History Tobacco Use Types Packs/Day Years [...] on filedocumented in this encounter Care Teams Deputy Sheriff Lieutenant Relationship Specialty Start Date End Date Joseph Valencia MD [address] [place] [address] Dr [place], [place] [address] PCP - General Internal Medicine 04/25/19 documented as of this encounter Additional Source Comments The information contained in this document represents components of the legal health record. It is not the complete legal health record.[facility]
--- OUTSIDE RECORDS SUMMARY | 2025-03-17 16:38 | XMS_ITS | Encounter Summary ---
Author Organization [facility] Address [address] [facility] [address] [place] [address] Phone Care Team Providers Care Administrative Court Justice Name Role Phone Joseph Valencia MD Primary Care Provider Encounter Details Date Type Department Care Team (Late st Contact Info) Description 04/11/2019 Ancillary Orders [facility],Outside Imaging [address] [place], [place] [phone] System, Provider Not In, [place] [address] Social History Tobacco Use Types Packs/Day Years [...] on filedocumented in this encounter Care Teams Administrative Court Justice Relationship Specialty Start Date End Date Joseph Valencia MD [address] [place] [address] [place] [address] PCP - General Internal Medicine 04/25/19 documented as of this encounter Additional Source Comments The information contained in this document represents components of the legal health record. It is not the complete legal health record.[facility]
== END ==
LOC: HO.NUCMED 13:36
PROVIDERS: PCP Internal Medicine; Visit Provider Urology
DX: N20.0 Calculus of kidney (principal); N13.5 Crossing vessel and stricture of ureter without hydronephrosis
CPT/HCPCS: 78708; A9539; J1938

== ENCOUNTER → 2025-03-17 13:39 | Outpatient (BNV) | payer MEDICARE, SELFPAY | PROVIDERS: PCP Internal Medicine; Visit Provider Radiology Diagnostic Radiology | DX: N20.0 Calculus of kidney (principal) | CPT/HCPCS: 78708 ==

== ENCOUNTER 2025-03-24 14:53 | Outpatient (AMB) | payer MEDICARE, SELFPAY ==
--- OUTSIDE RECORDS SUMMARY | 2023-09-19 10:00 | XMS_ITS | Continuity of Care Document ---
Author Organization [facility] Address [address] [place] [address] Phone Care Team Providers Care Resource Protection Specialist Name Role Phone Yasmany KEY, GARDENIA, George MARIA Unavailable U navailable Procedures Procedure Date Offic/outpt E&m Estab 5 Min Trial- Telem edicine CT & [place] Offic Cons New/estab Mod-hi 60- CT & [place] Duplex Scan-extrem Veins; Comp- CT & [place] Advance Directives Directive Yes / No Effective Date File Name Other Directive No 09/19/2023 N/A WARNING:The information contained in this section is historical and is provided for information only and does not constitute a legal document or any assurance that the information is still accurate. Please verify the information with the raymond of the legal document before using it for clinical purposes. Encounters Encounter Description Practice Location Reason(s) For Visit Diagnoses Date Provider Providers Copied on Encounter Offic/outpt E&m Estab 5 Min Trial- Telemedicine CT & [place] [facility], [address] [place] [address] [address], [place], [id number], [place] tel:[phone] R - [place] - [place] Varicose veins of bilateral lower extremities with other complicationsL ocalized edemaCramp and spasmPruritus, unspecifiedEss ential (primary) hypertension 4 Yasmany KEY, GARDENIA, CROW Vazquez. [address], [address], [facility] [id number] , [place]. tel:[phone] Offic Cons New/estab Mod-hi 60- [place] & [place] [facility], [address] [place] [address] [address], [place], [id number], tel:[phone] CVR - [place] - [place] Essential (primary) hypertensionPr uritus, unspecifiedPai n in left legCramp and spasmLocalized edemaVaricose veins of bilateral lower extremities with other complicationsP ain in right lower legPain in left lower legPain in right leg 4 Yasmany KEY RVT, CROW Vazquez. [address] [place] [address], [facility] [place], [id number] , [place]. tel:[phone] [facility], [address] [place] [address] [address] [address], [id number], tel:[phone] CVR - [facility] Varicose veins of bilateral lower extremities with pain 4 Yasmany KEY RVT, CROW Vazquez. [address] [place] [address], Lalit [place], [id number] , [place]. tel:[phone] Referring Provider: George Jade MD, RVT, CROW, [address] [place] [address], [place], [address] . tel:[phone] Family History Family Member Type Diagnosis Age At Onset No Information Payers Payer name Insurance type Covered republican ID Grayson jacome(s) [employer] [place] [employer] [place] [id number] Social History Type Description Quantity Date Captured Comments Alcohol Use Details Unknown Caffeine Use Details Unknown Tobacco Use Status No Information Smoking Status Former Smoker Non-Smoking Tobacco Use Details : No Details Available : No Details Available Sex Female Vital Signs Date / Time: Height Weight BMI Pulse Rate Blood Pressure Temperature Respiratory Rate Body Surface Area Head Circumference Head Circ. Percentile Wt./Richard. Percentile BMI percentile Pulse Ox Inhaled Ox 58.970 kg (130.00 lbs) 22.3 6 kg/m eter (2) Chief Complaint And Reason For Visit No Information Reason For Referral Reason For Referral No Information Plan Of Treatment Date Type Action Status Goal Tobacco cessation counseling completed Goal Tobacco cessation counseling completed History Of Present Illness Encounter Date Complaint History Of Prese nt Illness No Information Functional Status Date Functional Assessmen t No Information Instructions Date Instruction Additional Infor mation Pre and post instruc tions reviewed and provided Related to Varicose veins of bilateral lower extremities with other complications Patient education booklet given Related to Varicose veins of bilateral lower extremities with other complications Patient education booklet given Related to Varicose veins of bilateral lower extremities with other complications Pre and post instruc tions reviewed and provided Related to Varicose veins of bilateral lower extremities with other complications Assessments Type Assessment Date No Information Patient Care Teams Name Effective Dates (start - stop) Status Members No Information
--- OUTSIDE RECORDS SUMMARY | 2023-11-06 10:00 | XMS_ITS ---
Author Organization [facility] Address [address] [place] [address] Care Team Providers Care Anthropology Lecturer Name Role Phone Joseph Valencia MD Primary Care Provider Merle Lopez [phone] Encounters Encounter Location Date Provider Diagnosis [address] [address] 11/06/2023 Merle Parker Plan Of Treatment No Information Progress Notes * Eliza RINCON PDOB: (75 yo F)Acc No.[id number]:11/06/2023 Progress Notes Patient: Jaimee AHMADIELISEO Eliza Tavares Provider: Darrick Parker DPM :1950 A ge:73 Y S ex:Female Date:11/06/2023 Address:[address] [place], [place] [phone] Pcp:Joseph Valencia MD Subjective: * Chief Complaints: * * Medical History: Objective: * Vitals: Assessment: Plan: * Treatment: * Images: * The named appointment provid er may or may not be the originator of this progress note, and it is not deemed complete until electronically signed by the appointment provider. Sign off status: Pending * Provider: Darrick Parker DPM Date: 0 11/06/2023 Generated for Printi ng/Faneang/eTransmitting on: 05/24/2024 04:38 PM EST
--- OUTSIDE RECORDS SUMMARY | 2024-01-04 06:40 | XMS_ITS ---
Author Organization [facility] Address [address] [place] [address] Care Team Providers Care Radiology Administrator Name Role Phone APOORVA HILL Primary Care Provider George Valente Unavailable [phone] George Dias MD Unavailable Unavailable REASON FOR VISIT colon screening Problems Problem Type SNOMED Code ICD Code Onset Dates Problem Status W/U Status Risk Notes Problem Ulcerative colitis (24786982) Ulcerative colitis (K51.90) Active confirmed Problem Diverticular disease of colon (811426874) Diverticulosis of large intestine without perforation or abscess without bleeding (K57.30) Active confirmed Encounters Encounter Location Date Provider Diagnosis [facility] [place] Outpatient [address] [place] [id number] 01/04/2024 George Nguyen Colon cancer scree shirley [...] Name:George Nguyen , 09/09/2025 04:00:00 PM, [address], [address], [place], [address], Progress Notes * DAJA YOUNG PDOB: (75 yo F)Acc No.[id number]:01/04/2024 COLON WITH MAC Patient: DAJA JAY Provider: Satinder Nguyen MD :1950 A ge:73 Y S ex:Female Date:01/04/2024 Address:[address] [place], [place] [id number] Pcp:APOORVA HILL Subjective: * Chief Complaints: * 1 . Colon screening. * Medical History: Objective: * Vitals: Assessment: * Assessment: 1. C olon cancer screening - Z12.11 (Primary) 2 . C olon polyps - K63.5? 3. U lcerative colitis - K51.90 4 . D iverticulosis of large intestine without perforation or abscess without bleeding - K57.30 Plan: * Treatment: * Procedure Codes: 4 5385 LESION REMOVAL COLONOSCOPY, Modifiers: PT , 0529F INTRVL 3+YRS PTS CLNSCP DOCD, Modifiers: 8P , 0528F RCMND FLW-UP 10 YRS DOCD, Modifiers: 1P * * The named appointment provid er may or may not be the originator of this progress note, and it is not deemed complete until electronically signed by the appointment provider. Sign off status: Pending * Provider: Satinder Nguyen MD Date: 0 01/04/2024 Generated for Pina bennett/Rozina/Michellitting on: 05/24/2024 04:37 PM EST
--- OUTSIDE RECORDS SUMMARY | 2024-03-07 11:00 | XMS_ITS ---
Author Organization George Dias III, MD Address [address] [place] [address] Care Team Providers Care Electric Motor Control Assembler Name Role Phone Joseph Valencia MD Primary Care Provider Dr. George Ren III Unavailable [phone] Allergies Allergen (clinical drug ingredient) Drug/Non Drug [...] Date Provider Diagnosis George Dias III, MD [address] [place] [address] [place] [address] 03/07/2024 George Dias Ductal carcinoma in situ [...] Her reflux symptoms are well controlled with dlby-kzh-khktfzc medication. 03/07/2024 Former smoker (ICD-10 - Z87.891) [...] * DAJA PEACE PDOB: (74 yo F)Acc No.[id number]:03/07/2024 Progress Notes Patient: Jaimee DAJA VASQUEZ P Provider: Satinder Dias MD :1950 A ge:74 Y S ex:Female Date:03/07/2024 Address:[address] [place] [phone] Pcp:Joseph Valencia MD Subjective: * Chief Complaints: [...] trying to get in touch with her human resources training manager, Dr. Zee, to discuss her heart condition [...] Lumpectomy and sentinel node biopsy left breast, [facility], Dr. Mixon reast cancer surgery in 2021 [...] :Her reflux symptoms are well controlled with qlja-eeh-pxumthc medication. 5 . F ormer smoker - [...] MD Date: Generated for Pina bennett/Rozina/Michellitting on: 05/24/2024 04:38 PM EST History and Physical Notes * HPI [...]
--- OUTSIDE RECORDS SUMMARY | 2024-09-09 11:00 | XMS_ITS ---
Author Organization George Dias III, MD Address [address] [place] [address] Care Team Providers Care Physician Executive Name Role Phone Joseph Valencia MD Primary Care Provider Dr. George Ren III Unavailable [phone] Allergies Allergen (clinical drug ingredient) Drug/Non Drug [...] Date Provider Diagnosis George Dias III, MD [address] [place] [address] [place] [address] 09/09/2024 George Dias Ductal carcinoma in situ [...] * DAJA PEACE PDOB: (75 yo F)Acc No.[id number]:09/09/2024 Progress Notes Patient: DAJA HAAS Provider: Satinder Dias MD :1950 A ge:74 Y S ex:Female Date:09/09/2024 Address:[address] [place] [address], [id number] Pcp:Joseph Valencia MD Subjective: * Chief Complaints: [...] medial right kidney, Former smoker since 1998, [id number] son, [id number] invasive ductal carcinoma left breast April [id number] [...] Lumpectomy and sentinel node biopsy left breast, [facility], Dr. Mixon 04/2021, Breast cancer surgery [...] 09/09/2024 Generated for Pina bennett/Rozina/Ashleesmitting on: 1 05/24/2024 04:37 PM EST History and Physical Notes * [...]
--- OUTSIDE RECORDS SUMMARY | 2024-12-01 08:40 | XMS_ITS ---
Author Organization [facility] Address [address] [facility] [address] [place] [address] Care Team Providers Care Medical Coding Specialist Name Role Phone APOORVA HILL Primary Care Provider George Valente Unavailable [phone] George Dias MD Unavailable Unavailable REASON FOR VISIT ulcerative protocolitis Encounters Encounter Location Date Provider Diagnosis [facility] Outpatient [address] [place] [id number] 12/01/2024 George Nguyen Plan Of Treatment Next Appt Details Provider Name:George Nguyen , 09/09/2025 04:00:00 PM, [address] [facility], Suite [facility], [place], [address], Progress Notes * DAJA YOUNG PDOB: (75 yo F)Acc No.[id number]:12/01/2024 COLON WITH MAC Patient: Jaimee DAJA DOE Provider: Satinder Nguyen MD :1950 A ge:74 Y S ex:Female Date:12/01/2024 Address:[address] [place], [place] [phone] Pcp:APOORVA HILL Subjective: * Chief Complaints: * 1 . Ulcerative protocolitis. * Medical History: Objective: * Vitals: Assessment: Plan: * Treatment: * * The named appointment provid er may or may not be the originator of this progress note, and it is not deemed complete until electronically signed by the appointment provider. Sign off status: Pending * Provider: Satinder Nguyen MD Date: 0 12/01/2024 Generated for Pina bennett/Rozina/Annabel on: 1 05/24/2024 04:39 PM EST
--- NOTE | 2025-03-24 14:51 | MHC.OFFVIS ---
Intake Visit Reasons: (UPJ) obstruction/lasix renogram follow up Intake Note: Patient is present for UPJ Obstruction Lasix Renogram Urology Medication:POTASSIUM CHLORIDE Antibiotic Allergy:PENICILLIS,SULFA Blood Thinner:ASPIRIN Imaging: NM Renal Scan 03/17/25 Agricultural Extension Educator Required: No Accompanied by: Self / Same As Patient Allergies codeine Allergy (Severe, Verified 03/24/25 14:52) nausea eplerenone Allergy (Severe, Verified 03/24/25 14:52) Gastrointestinal Upset Penicillins Allergy (Severe, Verified 03/24/25 14:52) Anaphylaxis sulfamethoxazole (From BACTRIM) Allergy (Severe, Verified 03/24/25 14:52) HIVES/RASH/SWELLING tamsulosin Adverse Reaction (Severe, Verified 03/24/25 14:52) cardiac HPI Comments Details: Eliza is a pleasant female. She is a patient of Dr Vann. 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 Plan for endopyelotomy pyelotomy BUN: 02/03 12, 08/04 12, 09/04 12, 10/04 17, 01/04 15, 09/05 22, 11/05 16 Creatinine: 02/03 0.70, 08/04 0.70, 09/04 0.64, 10/04 0.79, 01/04 0.74, 08/04 0.63, 09/05 0.66, 11/05 0.62 PFSH Medical History Venous stasis dermatitis of both lower extremities Non-rheumatic mitral regurgitation Breast cancer Essential hypertension Hypercalcemia Slow to wake up after anesthesia Hx of radiation therapy Hiatal hernia PONV (postoperative nausea and vomiting) Anemia History of kidney stones Proctitis Arthritis Anxiety Hyperparathyroidism Lung cancer GERD (gastroesophageal reflux disease) Asthma-COPD overlap syndrome Pulmonary hypertension Surgical History History of surgery on lower extremity History of parathyroidectomy H/O cataract extraction Hx of cardiac catheterization Hx of varicose vein ligation and stripping History of lumpectomy of both breasts History of right inguinal hernia repair History of lithotripsy History of lobectomy of lung Hx of colonoscopy (~01/04/24) History of esophagogastroduodenoscopy Family History Mother Breast cancer Bone cancer Heart attack Father Abdominal aneurysm Enlarged heart Brother Lung cancer Brain cancer Social History Household Members: Family Household Members Other:: son and disabled sister Housing: House Are you a primary weekend caregiver to a significant other at home: No Do you presently have visiting nurse or other home services: No Alcohol intake: former Patient Tobacco Use Status: Former Tobacco user Tobacco use type: Cigarette Years Smoked: 31 e-Cigarette/Vaping Use: Never Used Second Hand Smoke Exposure: No service: No Current occupational status: retired Cognitive needs: Yes (cane) Hearing needs: No Vision needs: Yes (Reading) Review of Systems Const Denies chills and Denies fever(s) Card Reports no additional complaints and Denies syncope Resp Denies cough GI Denies abdominal pain and Denies heartburn Reports as per HPI and Denies change in libido Neuro Denies syncope Psych Denies change in libido Endo Denies change in libido Physical Exam Const General: cooperative, healthy appearing, comfortable and no acute distress Orientation/consciousness: patient oriented x3 HEENT Face and sinus: Yes normal facial exam Mouth: moist mucous membranes Neck Neck: Yes normal visual inspection, Yes full ROM and Yes trachea midline Chest Chest palpation & inspection: normal inspection of the chest Resp Effort & Inspection: normal respiratory effort, able to speak in complete sentences and no respiratory distress GI Inspection: Yes normal to inspection Back/Spine/Pelvis Cervical Spine: normal cervical lordosis Thoracic/Lumbar Spine: thoracic and lumbar spine normal to inspection Skin General skin exam: no rashes or lesions noted Neuro General: patient oriented x3, gait normal, tone normal and moves all extremities Extrem General: Yes normal to inspection and Yes capillary refill normal Assessment & Plan Assessment & Plan (1) Ureteropelvic junction (UPJ) obstruction: Code(s): N13.5 - Crossing vessel and stricture of ureter without hydronephrosis Category: Medical Plan Risks, benefits and alternatives to therapy were discussed. These include but are not limited to infection, bleeding, damage to local organs and tissues, need for further interventions. Anesthetic risks regarding cardiac arrhythmia, blood clots, and potential mortality were discussed. The patient understands the typical recovery time and the outpatient nature of the procedure. After consideration of these risks the patient gives full informed consent and they wish to move ahead with the procedure. - right cystoscopy, right retrograde, right UPJ laser, right stent placement endopyelotomy Patient Instructions: This note is constructed using voice recognition software. While every effort has been made to ensure accuracy behavioral technician errors may have been included. Imaging studies, laboratory and physical exam results were discussed and reviewed in detail. No major barriers to patient understanding were identified. An opportunity to ask questions regarding the treatment plan was provided. All questions were answered. The patient expressed understanding and agreement with the above treatment plan. The patient is aware they should contact our office by phone for worsening of their current condition or the appearance of new urologic symptoms. Compliance is encouraged with any medications and followup testing that is ordered. It is a privilege to participate in the urologic care of your patient. If you have any questions or concerns regarding treatment for the above conditions, or other urologic issues, please do not hesitate to contact me. The office telephone contact is [phone]. Sincerely, Dr Jermaine Hammer MD, [facility] - Urology Compassionate Specialist Care for the Genitourinary System Coding Level of Care Code Est Pt Level 4 (49143) Complex EM visit Add On G2211 Diagnoses Ureteropelvic junction (UPJ) obstruction N13.5
--- OUTSIDE RECORDS SUMMARY | 2025-03-24 16:37 | XMS_ITS | Encounter Summary ---
Author Organization [facility] Address [address] [facility] [address] [place] [address] Phone Care Team Providers Care Picture Hanger Name Role Phone Joseph Valencia MD Primary Care Provider Encounter Details Date Type Department Care Team (Late st Contact Info) Description 06/20/2021 Ancillary Orders [facility],Outside Imaging [address] [place] [address] System, Provider [place] In, [place] [address] Social History Tobacco Use Types Packs/Day Years [...] on filedocumented in this encounter Care Teams Picture Hanger Relationship Specialty Start Date End Date Joseph Valencia MD [address] [place] [address] [place] [address] PCP - General Internal Medicine 12/13/19 documented as of this encounter Additional Source Comments The information contained in this document represents components of the legal health record. It is not the complete legal health record.[facility]
--- OUTSIDE RECORDS SUMMARY | 2025-03-24 16:37 | XMS_ITS | Clinical Summary ---
Author Organization [facility] Address [address] [facility] [address] [place] [address] Phone Care Team Providers Care Lead Technician Name Role Phone Joseph Valencia MD Primary Care Provider [phone] Allergies Active Allergy Reactions Criticality Noted Date [...] 01/17/2025 Refill [facility] [address] [address] Kiran Dickerson MD from Last 3 Months Immunizations Immunization [...] [facility] [address] [place] [address] Carlos Manuel Wagoner MD [address] [facility] [address] [place] [id number] Health Maintenance Due Date Last Done Comments Pneumococcal Vaccine: 50+ Years (3 of 3 - PCV20 or PCV21) 02/01/2015 12/07/2014, 12/05/2006 Influenza Vaccine (#1) 2025 5, 03/06/2011 Hepatitis B Vaccine Aged Out No longe r eligible based on patient's age to complete this topic Insurance Care Teams Lead Technician Relationship Specialty Start Date End Date Joseph Valencia MD [address] [place] [address] [address] [place], [place] PCP - General Internal Medicine 08/02/23
--- OUTSIDE RECORDS SUMMARY | 2025-03-24 16:37 | XMS_ITS | Encounter Summary ---
Author Organization [facility] Address [address] [facility] [address] [place] [address] Phone Care Team Providers Care License Registration Examiner Name Role Phone Joseph Valencia MD Primary Care Provider Encounter Details Date Type Department Care Team (Late st Contact Info) Description 06/20/2021 Ancillary Orders [facility],Outside Imaging [address] [place] [address] System, Provider [place] In, [place] [address] Social History Tobacco Use Types Packs/Day Years [...] on filedocumented in this encounter Care Teams License Registration Examiner Relationship Specialty Start Date End Date Joseph Valencia MD [address] [place] [address] [place] [address] PCP - General Internal Medicine 12/13/19 documented as of this encounter Additional Source Comments The information contained in this document represents components of the legal health record. It is not the complete legal health record.[facility]
--- OUTSIDE RECORDS SUMMARY | 2025-03-24 16:38 | XMS_ITS | Clinical Summary ---
Author Organization [facility] Address [address] [facility] [address] [place], [place] [phone] Phone Care Team Providers Care Price Accuracy Supervisor Name Role Phone Joseph Valencia MD Primary Care Provider Allergies Active Allergy Reactions Criticality Noted Date Comments Ipratropium Tatum Cough 04/25/2019 Penicillins Unknown 04/25/2019 Sulfa (Sulfonamide [...] VACCINES (50+ years) (3 of 3 - PCV20 or PCV21) 02/01/2015 12/07/2014, 12/05/2006 RSV [...] on patient's age to complete this topic IPV VACCINES Aged Out No longer eligi ble [...] REPLACEMENT [employer] [place] MEDIC[employer] HMO [place] [address] [address] MEDICARE HMO REPLACEMENT [employer] [place] MEDIC[place] HMO [place] [address] [place] [address] MEDICARE HMO REPLACEMENT [employer] [place] MED[employer] HMO REPLACEMENT [employer] [place] MED[employer] HMO REPLACEMENT MEDICARE HMO REPLACEMENT Member Subscriber Plan / Payer (Ef fective 2017-Present) Name:Eliza Ann Relation to Subscriber:Self Name:Eliza Ann Payer ID:Not on file Type:Medicare Address: [place] [id number] [employer] [place] MED[employer] HMO REPLACEMENT Care Teams Price Accuracy Supervisor Relationship Specialty Start Date End Date Joseph Valencia MD [address] [place] [address] [facility] [address] [place] [address] PCP - General Internal Medicine 04/25/19 Additional Source Comments The information contained in this document represents components of the legal health record. It is not the complete legal health record.[facility]
--- OUTSIDE RECORDS SUMMARY | 2025-03-24 16:38 | XMS_ITS | Encounter Summary ---
Author Organization [facility] Address [address] [place] [address] Phone Care Team Providers Care Wireless Sales Consultant Name Role Phone Joseph Valencia MD Primary Care Provider Encounter Details Date Type Department Care Team (Late st Contact Info) Description 03/28/2021 Ancillary Orders [facility],Outside Imaging [address] [place], [place] [id number] System, Provider [place] In, [place] [address] Social History Tobacco Use Types Packs/Day Years [...] on filedocumented in this encounter Care Teams Wireless Sales Consultant Relationship Specialty Start Date End Date Joseph Valencia MD [address] [place] [address] Dr [place], [place] [address] PCP - General Internal Medicine 04/25/19 documented as of this encounter Additional Source Comments The information contained in this document represents components of the legal health record. It is not the complete legal health record.[facility]
--- OUTSIDE RECORDS SUMMARY | 2025-03-24 16:38 | XMS_ITS | Patient Health Record ---
Author Organization [facility] III, [facility] Address [address] [place] [address] [place] [id number] Care Team Providers Care Cream Dipper Name Role Phone Joseph Valencia MD Primary [...] Problem Status W/U Status Risk Notes Problem 2077146 Former smoker (Z87.891) Active confirmed She has been abstinent since 1998. She has a plan to prevent relapse in times of stress and illness. Problem Fibromyalgia (678386595) Fibromyalgia (M79.7) Active confirmed Her symptoms ar e stable and unchanged. Problem 339174757 Overweight (E66.3) Active confirmed This problem duron s resolved and will be removed from her problem list Problem 67388582 Allergy to sulfa drugs (Z88.2) Active confirmed Problem 637952731 GERD without esophagitis (K21.9) Active confirmed Her reflux symptoms are well controlled with [id number]-sme-[id number] medication. Problem 77024452 Essential hypertension (I10) Active confirmed Her blood pressure is 134/71. She is stable and no change in her regimen was needed. I recommended continued sodium restriction. Problem 79847271 Penicillin allergy (Z88.0) Active confirmed Problem 023379343572235 Hematochezia (K92.1) Active confirmed #4 days. She isn't visible streaks of red blood in her stool. She will be referred to her gastroenterologi st for colonoscopy. 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 Problem 112303436 Renal cyst (N28.1) Active confirmed Diagnosis will be followed. 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 She has begun on anastrozole. She will have a radiation therapy consultation. Because of diffuse aches and pains. We have temporarily stopped anastrozole. Problem Psoriatic arthritis (803185134) Psoriatic arthritis (L40.50) Active confirmed She has mild arthritic changes in her fingers. No change in her therapy as needed. Plan Of Treatment Pending Test Test Name [...] Start Date Coverage End Date [facility] [address] [facility] [address] [facility] [place] [phone] [id number] DAJA POWELL Self - patient is the [...] l right kidney former smoker since 1998 [id number] son [id number] invasive ductal carcinoma left breast April [id number] DCIS right breast, surgery and RT Breast Cancer in 2021, High Blood Pressu re, Ulcerated Colitis Surgical History Surgery Date(Month/Year) Breast cancer surgery in 2021 2021 Lumpectomy and sentinel node biopsy left breast, [facility], Dr. Mixon 04/2021 multiple negative endometrial biopsies Right breast lumpectomy with 2 needle lo calization (DP) 03/2019 36 weeks radiation . Left breast 11/1998 1 major vein removed- Dr. Lo 2 major veins removed right leg Lumpectomy and sentinel nodes left breas t 1998 right upper lobectomy, stage I adenocarc inoma ofDr. Scherer 1998
--- OUTSIDE RECORDS SUMMARY | 2025-03-24 16:39 | XMS_ITS | Encounter Summary ---
Author Organization [facility] Address [address] [facility] [address] [place] [address] Phone Care Team Providers Care Director Of Education Name Role Phone Joseph Valencia MD Primary Care Provider Encounter Details Date Type Department Care Team (Late st Contact Info) Description 04/23/2019 Ancillary Orders [facility],Outside Imaging [address] [place] [address] System, Provider [place] In, [place] [address] Social History Tobacco Use Types Packs/Day Years [...] filedocumented in this encounter Care Teams Director Of Education Relationship Specialty Start Date End Date Joseph Valencia MD [address] [place] [address] [place] [address] PCP - General Internal Medicine 04/25/19 documented as of this encounter Additional Source Comments The information contained in this document represents components of the legal health record. It is not the complete legal health record.[facility]
--- OUTSIDE RECORDS SUMMARY | 2025-03-24 16:39 | XMS_ITS | Encounter Summary ---
Author Organization [facility] Address [address] [facility] [address] [place] [address] Phone Care Team Providers Care Design Studio Consultant Name Role Phone Joseph Valencia MD Primary Care Provider Encounter Details Date Type Department Care Team (Late st Contact Info) Description 04/11/2019 Ancillary Orders [facility],Outside Imaging [address] [place], [place] [phone] System, Provider [place] In, [place] [address] Social History Tobacco Use Types Packs/Day Years [...] on filedocumented in this encounter Care Teams Design Studio Consultant Relationship Specialty Start Date End Date Joseph Valencia MD [address] [place] [address] [place] [address] PCP - General Internal Medicine 04/25/19 documented as of this encounter Additional Source Comments The information contained in this document represents components of the legal health record. It is not the complete legal health record.[facility]
--- OUTSIDE RECORDS SUMMARY | 2025-03-24 16:39 | XMS_ITS | Patient Health Record ---
Author Organization [facility] Address [address] [place] [address] Care Team Providers Care Mixing Technician Name Role Phone APOORVA HILL Primary Care Provider George Valente Unavailable [phone] George Dias MD Unavailable Unavailable Allergies Allergen (clinical drug ingredient) Drug/Non Drug Allergy documented on EMR Reaction Allergy Type Onset Date Status codeine Codeine Unknown Drug Allergy Active Substance with sulfonamide structure and antibacterial mechanism of action (substance) Sulfa (uncoded) Unknown Allergy Active Penicillin (uncoded) Unknown Allergy Active Results Component Value Reference Range Notes Pathology Reviewed date:02/03/2025 06:03:21 PM Interpretation: Performing Lab:[facility], [address] [place] [id number] Notes/Report: Reason For Referral No Information Medications [...] 1 Rectal Nightly; Duration: 30 days Active [employer] Active Furosemide 40 MG 1 tablet Orally [...] W/U Status Risk Notes Problem Epigastric pain (52732051) Epigastric abdominal pain (R10.13) Active confirmed Problem Screening for malignant neoplasm of colon (909749126) Encounter for screening for malignant neoplasm of colon (Z12.11) Active confirmed Problem History of polyp of colon (situation) (736419457) Personal history of colonic polyps (Z86.010) Active confirmed Problem Diverticular disease of colon (718189854) Diverticulosis of large intestine without perforation or abscess without bleeding (K57.30) Active confirmed Problem Gastroesophageal reflux disease (689291537) Gastroesophageal reflux disease, esophagitis presence not specified (K21.9) Active confirmed Problem Hemorrhage of rectum and anus (430854270) Rectal bleed (K62.5) Active confirmed Problem Tubulovillous adenoma of colon (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) 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 Problem Ulcerative colitis (21600237) Ulcerative colitis (K51.90) Active confirmed Problem Proctitis (8960758) 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) Active c onfirmed Problem Diverticulosis of colon (338704666) Diverticulosis of colon (K57.30) Active confirmed Problem History of polyp of colon (situation) (704162967) History of colon polyps (Z86.0100) Active confirmed Vital Signs Temperature 97.6 degrees Fahrenheit 02/03/2025 Blood pressure diastolic 01 mm Hg 02/03/2025 Height 65 in 02/03/2025 Blood pressure systolic 001 mm Hg 02/03/2025 Weight 157 lbs 02/03/2025 BMI 26.12 kg/m2 02/03/2025 Procedures Procedure Date Ordered Date Performed Result Body Sit e COLONOSCOPY 10/15/2024 N/A Encounters Encounter Location Date Provider Diagnosis [facility] [address] [place] [id number] 12/01/2024 George Nguyen [facility] [address] [place] [address] 06/11/2024 George Nguyen Ulcerative colitis K51.90 ; Encounter for screening for malignant neoplasm of colon Z12.11 and Personal history of colonic polyps Z86.010 [facility] [address] [place] [phone] 10/15/2024 George Nguyen Rectal bleed K62.5 ; Ulcerative colitis K51.90 ; Gastroesophageal reflux disease, esophagitis presence not specified K21.9 ; Tubulovillous adenoma of colon K63.5 and Encounter for screening for malignant neoplasm of colon Z12.11 [facility] [address] [place] [phone] 02/03/2025 George Nguyen Encounter for screen ing for malignant neoplasm of colon Z12.11 ; Proctitis K62.89 ; Ulcerative colitis K51.90 and History of colon polyps Z86.0100 [facility] [address] [place] [address] 04/02/2024 George Nguyen [facility] [address] [place] [address] 06/17/2024 George Nguyen [facility] [address] [place] [address] 10/16/2024 George Nguyen [facility] [address] [place] [address] 12/02/2024 George Nguyen Assessments Encounter Date Diagnosis [...] COLONOSCOPY 09/26/2023 Next Appt Details Provider Name:George Fox Wendy , 09/09/2025 04:00:00 PM, [address], [address], [place], [address], Insurance Providers Payer Name Payer Address Payer Phone Subscriber Number Group Number Insured Name Patient Relationship to Insured Coverage Start Date Coverage End Date [facility] [address] [place] [phone] [id number] DAJA YOUNG Self - patient is the insured Medical (General) History Medical History History ICD Code Lung cancer - 1998- Removed upper right lobe Breast cancer-1998 Left- surgery and XRT ; and 03/2019 Right- surgery and XRT GERD Overactive parathyroid Anxiety Arthritis Colonoscopy in 2004 was neg. except for a hyperplastic polyp Denies [place],DM,CVA,renal disease COPD Colonscopy in 01/2020 with a [...] active proctitis Scheduled for a cystoscopy t week February [address] Hammer for issues with kidney stones Surgical History Surgery Date(Month/Year) Parathyroid surgery scheduiled for at [facility] Vein surgery left leg - Dr. Aponte 01/2023 Lasik surgery on both eyes Cateracts left and right -Dr. Newton Right inguinal hernia repair Lumpectomies right and left breast for cancer with left sided node dissection RUL lung resection for cancer
--- OUTSIDE RECORDS SUMMARY | 2025-03-24 16:39 | XMS_ITS | Patient Health Record ---
Author Organization [facility] Address [address] [place] [address] Care Team Providers Care Ventilation Mechanic Name Role Phone Joseph Valencia MD Primary Care Provider UnavailMerle Mejia Unavailable [phone] Allergies Allergen (clinical drug ingredient) Drug/Non Drug [...] Status W/U Status Risk Notes Problem Psoriasis (6217484) Psoriasis (L40.9) Active confirmed Problem Varicose veins of bilateral lower limbs (7937705170273 9106) Varicose veins of both legs with edema (I83.893) Active confirmed Plan Of Treatment Pending Test Test Name Order Date Ultrasound : Extremity Ultrasound Non-[place] sc 04/12/2018 X ray : Foot, left 3V 03/22/2018 X ray : Foot, right 3V 03/22/2018 13063- Ganglion Cyst Injection/Aspiratio n 03/22/2018 Insurance Providers Payer Name Payer Address Payer Phone Subscriber Number Group Number Insured Name Patient Relationship to Insured Coverage Start Date Coverage End Date [employer] [place] [employer] [address] [facility] [place] [address] [id number] Eliza Shields Self - patient is the insured Medical (General) History Medical History History ICD Code Anxiety Back,Hip,and Knee pain Cancer Hiatal hernia Sciatica Psoriasis/eczema Stomach ulcer hyperparathyroidism Surgical History Surgery Date(Month/Year) lung lobectomy right and left 1998
== END 2025-03-24 15:14 | disposition home or self-care (01) ==
LOC: HO.HUSH 14:53
PROVIDERS: PCP Internal Medicine; Visit Provider Urology
DX: N13.5 Crossing vessel and stricture of ureter without hydronephrosis (principal)
CPT/HCPCS: 99214; G2211

== ENCOUNTER → 2025-03-24 14:53 | Outpatient (BNVA) | payer MEDICARE, SELFPAY | PROVIDERS: PCP Internal Medicine; Visit Provider Urology | DX: N13.5 Crossing vessel and stricture of ureter without hydronephrosis (principal) | CPT/HCPCS: 99212 ==

== ENCOUNTER 2025-05-06 23:46 | Inpatient (IN) | payer MEDICARE, SELFPAY ==
--- OUTSIDE RECORDS SUMMARY | 2023-11-06 10:00 | XMS_ITS ---
Author Organization [facility] Address [address] [place] [address] Care Team Providers Care Director Surgical Name Role Phone Joseph Valencia MD Primary Care Provider Merle Lopez [phone] Encounters Encounter Location Date Provider Diagnosis [address] [address] 11/06/2023 Merle Parker Plan Of Treatment No Information Progress Notes * Eliza RINCON PDOB: (75 yo F)Acc No.[id number]:11/06/2023 Progress Notes Patient: Jaimee AHMADIELISEO Eliza Tavares Provider: Darrick Parker DPM :1950 A ge:73 Y S ex:Female Date:11/06/2023 Address:[address] [place], [place] [phone] Pcp:Joseph Valencia MD Subjective: * Chief Complaints: [...] Parker DPM Date: 0 11/06/2023 Generated for Andrei ng/Fanenag/eTransmitting on: 1 07/08/2024 01:36 AM EST
--- OUTSIDE RECORDS SUMMARY | 2024-01-04 06:40 | XMS_ITS ---
Author Organization [facility] Address [address] [place] [address] Care Team Providers Care Filing Writer Name Role Phone APOORVA HILL Primary Care Provider George Valente Unavailable [phone] George Dias MD Unavailable Unavailable REASON FOR VISIT colon screening Problems Problem Type SNOMED Code ICD Code Onset Dates Problem Status W/U Status Risk Notes Problem Ulcerative colitis (37139081) Ulcerative colitis (K51.90) Active confirmed Problem Diverticular disease of colon (138115857) Diverticulosis of large intestine without perforation or abscess without bleeding (K57.30) Active confirmed Encounters Encounter Location Date Provider Diagnosis [facility] Outpatient [address] [place] [phone] 01/04/2024 George Nguyen Colon cancer scree shirley Z12.11 ; Colon polyps K63.5 ; Ulcerative colitis K51.90 and Diverticulosis of large intestine without perforation or abscess without bleeding K57.30 Assessments Encounter Date Diagnosis (ICD Code) Assessment Notes Treatment Notes Treatment Clinical Notes Section Notes 01/04/2024 Colon cancer screening (ICD-10 - Z12.11) 01/04/2024 Colon polyps (ICD-10 - K63.5) 01/04/2024 Ulcerative colitis (ICD-10 - K51.90) 01/04/2024 Diverticulosis of large intestine without perforation or abscess without bleeding (ICD-10 - K57.30) Plan Of Treatment Next Appt Details Provider Name:George Nguyen , 09/09/2025 04:00:00 PM, [address], [address], [place], [address], Progress Notes * DAJA YOUNG PDOB: (75 yo F)Acc No.[id number]:01/04/2024 COLON WITH MAC Patient: DAJA JAY Provider: Satinder Nguyen MD :1950 A ge:73 Y S ex:Female Date:01/04/2024 Address:[address] [place], [place] [phone] Pcp:APOORVA HILL Subjective: * Chief Complaints: * C olon screening Assessment: * Assessment: 1. C olon cancer screening - Z12.11 (Primary) 2 . C olon polyps - K63.5? 3. U lcerative colitis - K51.90 4 . D iverticulosis of large intestine without perforation or abscess without bleeding - K57.30 Plan: * Procedure Codes: 4 5385 LESION REMOVAL COLONOSCOPY, Modifiers: PT 0529F INTRVL 3+YRS PTS CLNSCP DOCD, Modifiers: 8P 0528F RCMND FLW-UP 10 YRS DOCD, Modifiers: 1P Billing Information: * Procedure Codes: 51895 LESION REMOVAL COLONOSCOPY. Modifiers: PT 0529F INTRVL 3+YRS PTS CLNSCP DOCD. Modifiers: 8P 0528F RCMND FLW-UP 10 YRS DOCD. Modifiers: 1P * The named appointment provid er may or may not be the originator of this progress note, and it is not deemed complete until electronically signed by the appointment provider. Sign off status: Pending * Provider: Satinder Nguyen MD Date: 0 01/04/2024 Generated for Pina bennett/Rozina/Ashleesmitting on: 1 07/08/2024 01:35 AM EST
--- OUTSIDE RECORDS SUMMARY | 2024-03-07 11:00 | XMS_ITS ---
Author Organization George Dias III, MD Address [address] [place] [address] Care Team Providers Care Senior Technical Project Manager Name Role Phone Joseph Valencia MD Primary Care Provider Dr. George Ren III Unavailable Allergies Allergen (clinical drug ingredient) Drug/Non Drug Allergy documented on EMR Reaction Allergy Type Onset Date Status sulfacetamide Sulfacetamide Unknown Drug Allergy Active Penicillin Unknown Drug Allergy Active codeine Codeine stomach upset Drug Allergy Act janet REASON FOR VISIT History of adenocarcinoma of the right lung in remission 07/01/1998, History of invasive carcinoma of left breast, DCIS of the right breast, Hypertension, Fibromyalgia Medications Medication SIG (Take, Route, Frequency, Duration) Notes Start Date End Date Status hydroCHLOROthiazide 12.5 MG 1 capsule in the morning Orally Once a day Active ALPRAZolam 0.5 MG 1/2 tablet Orally 4 times a day Active Xanax 0.25 MG 1 tablet Orally Thre e times a day Active Carvedilol 3.125 MG 2 tablet with food Oral Twice a day Active Albuterol Sulfate HFA 108 (9 0 Base) MCG/ACT INHALE 2 PUFFS BY MOUTH EVERY 4-6 HOURS NEEDED FOR WHEEZING Inhalation Active Potassium Chloride Lizzie ER 1 0 MEQ 1 tablet with food Orally Twice a day Active Clobetasol Propionate 0.05 % 1 applicati on Externally Twice a day Active Mesalamine 1000 MG 1 suppository at bedtime Rectal Once a day Active Multi Vitamin - 1 tablet Orally Once a day Active Iron 28 MG 1 tablet Orally Thre e times a Week Active Furosemide 20 MG TAKE 1 TABLET BY KAROL TH EVERY DAY FOR 30 DAYS Active Letrozole 2.5 MG TAKE 1 TABLET BY KAROL TH EVERY DAY FOR 30 DAYS Active Biotin 1000 MCG 1 tablet Orally Once a day Active Omeprazole 20 MG 1 capsule 30 minutes before morning meal Orally Once a day Active Tylenol Extra Strength 500 MG 1 tablet a s needed Orally every 6 hrs Active Aspir-Low 81 MG 1 tablet Orally Once a day Active Social History Tobacco Use: Social History Observation Description Date Details (start date - stop date) Former Smoker NA - NA Tobacco Use/Smoking Question Answer Notes Patient is a former smoker How long has it been since you last smoked? > 10 years Additional Findings: Tobacco Non-User Ex-cigaret te smoker Vital Signs Temperature 98.1 degrees Fahrenheit 03/07/20 24 Blood pressure systolic 134 mm Hg 03/07/20 24 Blood pressure diastolic 71, 160 mm Hg 024 Heart Rate 94 /min 03/07/2024 Height 66 in 03/07/2024 Weight 153 lbs 03/07/2024 BMI 24.69 kg/m2 03/07/2024 Encounters Encounter Location Date Provider Diagnosis George Dias III, MD [address] [place] [address] [place] [address] 03/07/2024 George Dias Ductal carcinoma in situ (DCIS) of right breast D05.11 ; Ductal carcinoma in situ (DCIS) of left breast D05.12 ; Essential hypertension I10 ; GERD without esophagitis K21.9 ; Former smoker Z87.891 and Fibromyalgia M79.7 Assessments Encounter Date Diagnosis (ICD Code) Assessment Notes Treatment Notes Treatment Clinical Notes 03/07/2024 Ductal carcinoma in situ (DCIS) of right breast (ICD-10 - D05.11) Her lumpectomy scar is well-healed and there are no new findings. 03/07/2024 Ductal carcinoma in situ (DCIS) of left breast (ICD-10 - D05.12) This was detected in 1998 and treated then. I recurrent cancer in her breast is recently been detected.Her examination today was unremarkable 03/07/2024 Essential hypertension (ICD-10 - I10) Her blood pressure is 134/71. She is stable and no change in her regimen was needed. I recommended continued sodium restriction. 03/07/2024 GERD without esophagitis (ICD-10 - K21.9) Her reflux symptoms are well controlled with tcnx-whz-pbuennm medication. 03/07/2024 Former smoker (ICD-10 - Z87.891) She has been abstinent since 1998. She has a plan to prevent relapse in times of stress and illness. 03/07/2024 Fibromyalgia (ICD-10 - M79.7) Her symptoms are stable and unchanged. Plan Of Treatment Medication Medication Name Sig Start Date Stop Date Notes hydroCHLOROthiazide 12.5 MG 1 capsule in the morning Orally Once a day ALPRAZolam 0.5 MG 1/2 tablet Orally 4 times a day Xanax 0.25 MG 1 tablet Orally Thre e times a day Carvedilol 3.125 MG 2 tablet with food O ral Twice a day Albuterol Sulfate HFA 108 (9 0 Base) MCG/ACT INHALE 2 PUFFS BY MOUTH EVERY 4-6 HOURS NEEDED FOR WHEEZING Inhalation Potassium Chloride Lizzie ER 10 MEQ 1 tabl et with food Orally Twice a day Clobetasol Propionate 0.05 % 1 applicati on Externally Twice a day Mesalamine 1000 MG 1 suppository at bed time Rectal Once a day Multi Vitamin - 1 tablet Orally Once a day Iron 28 MG 1 tablet Orally Thre e times a Week Furosemide 20 MG TAKE 1 TABLET BY KAROL TH EVERY DAY FOR 30 DAYS Letrozole 2.5 MG TAKE 1 TABLET BY KAROL TH EVERY DAY FOR 30 DAYS Biotin 1000 MCG 1 tablet Orally Once a day Omeprazole 20 MG 1 capsule 30 minutes before morning meal Orally Once a day Tylenol Extra Strength 500 MG 1 tablet a s needed Orally every 6 hrs Aspir-Low 81 MG 1 tablet Orally Once a day Next Appt Details Follow Up: 6 Months, In six months, Reason: OV, To review the patient's adjuvant endocrine therapy for breast cancer. Progress Notes * DAJA PEACE PDOB: (74 yo F)Acc No.[id number]:03/07/2024 Progress Notes Patient: Jaimee DAJA VASQUEZ P Provider: Satinder Dias MD :1950 A ge:74 Y S ex:Female Date:03/07/2024 Address:[address] [place] [phone] Pcp:Joseph Valencia MD Subjective: * Chief Complaints: * H istory of adenocarcinoma of the right lung in remission 07/01/1998History of invasive carcinoma of left breastDCIS of the right breastHypertensionFibromyalgia * HPI: C OVID-19 Screening: Questions H ave you experienced fever, chills, [...] COVID-19 in the past? Y es * : The 74-year-old female patient came in for a review of her adjuvant endocrine therapy for breast cancer, which she had in 2021. She has been tolerating the therapy well. She has been having issues with her blood pressure, which has been fluctuating. She has been on mesalamine suppositories for over a year due to ulcerated colitis. However, she has been experiencing increased bleeding and blood clots. She also mentioned that her heart rate increased after taking mesalamine tablets. She has been trying to get in touch with her film drying machine operator, Dr. Zee, to discuss her heart condition and whether she can continue taking the mesalamine tablets. She also mentioned that she has been experiencing weakness in her legs. * ROS: G eneral/Constitutional: pain o nly normal aches and pains. C hills d enies.?Fatigue a dmits. F ever d enies. E NT: Decreased hearing , mild. R espiratory: Cough d enies. C ardiovascular: [...] Muscle aches d enies. P ainful joints A rthritis hand shoulders and hips. S ciatica d enies. W eakness d [...] Lumpectomy and sentinel node biopsy left breast, [facility], Dr. Mixon reast cancer surgery in 2021 2021 * Hospitalization/Major Diagno stic Procedure: D enies Past Hospitalization * Family History: F ather: 68 yrs, COPD, hypertension, CVD, diagnosed with HTN, CVD. M other: , diagnosed with Cancer, CVD. [...] no longer smokes cigarettes. * Medications: T akingXanax 0.25 MG Tablet 1 tablet Orally Three times a day hydroCHLOROthiazide 12.5 MG Capsule 1 capsule in the morning Orally Once a day Aspir-Low 81 MG Tablet Delayed Release 1 tablet Orally Once a day Biotin 1000 MCG Tablet 1 tablet Orally Once a day Omeprazole 20 MG Capsule Delayed Release 1 capsule 30 minutes before morning meal Orally Once a day Furosemide 20 MG Tablet TAKE 1 TABLET BY MOUTH EVERY DAY FOR 30 DAYS Letrozole 2.5 MG Tablet TAKE 1 TABLET BY MOUTH EVERY DAY FOR 30 DAYS Tylenol Extra Strength 500 MG Tablet 1 tablet as needed Orally every 6 hrs Iron 28 MG Tablet 1 tablet Orally Three times a Week Multi Vitamin - Tablet 1 tablet Orally Once a day Clobetasol Propionate 0.05 % Ointment 1 application Externally Twice a day Mesalamine 1000 MG Suppository 1 suppository at bedtime Rectal Once a day Potassium Chloride Lizzie ER 10 MEQ Tablet Extended Release 1 tablet with food Orally Twice a day ALPRAZolam 0.5 MG Tablet 1/2 tablet Orally 4 times a day Carvedilol 3.125 MG Tablet 2 tablet with food Oral Twice a day Albuterol Sulfate HFA 108 (90 Base) MCG/ACT Aerosol Solution INHALE 2 PUFFS BY MOUTH EVERY 4-6 HOURS NEEDED FOR WHEEZING Inhalation Medication List reviewed and reconciled with the patientTaking Xanax 0.25 MG Tablet 1 tablet Orally Three times a day Taking hydroCHLOROthiazide 12.5 MG Capsule 1 capsule in the morning Orally Once a day Taking Aspir-Low 81 MG Tablet Delayed Release 1 tablet Orally Once a day Taking Biotin 1000 MCG Tablet 1 tablet Orally Once a day Taking Omeprazole 20 MG Capsule Delayed Release 1 capsule 30 minutes before morning meal Orally Once a day Taking Furosemide 20 MG Tablet TAKE 1 TABLET BY MOUTH EVERY DAY FOR 30 DAYS Taking Letrozole 2.5 MG Tablet TAKE 1 TABLET BY MOUTH EVERY DAY FOR 30 DAYS Taking Tylenol Extra Strength 500 MG Tablet 1 tablet as needed Orally every 6 hrs Taking Iron 28 MG Tablet 1 tablet Orally Three times a Week Taking Multi Vitamin - Tablet 1 tablet Orally Once a day Taking Clobetasol Propionate 0.05 % Ointment 1 application Externally Twice a day Taking Mesalamine 1000 MG Suppository 1 suppository at bedtime Rectal Once a day Taking Potassium Chloride Lizzie ER 10 MEQ Tablet Extended Release 1 tablet with food Orally Twice a day Taking ALPRAZolam 0.5 MG Tablet 1/2 tablet Orally 4 times a day Taking Carvedilol 3.125 MG Tablet 2 tablet with food Oral Twice a day Taking Albuterol Sulfate HFA 108 (90 Base) MCG/ACT Aerosol Solution INHALE 2 PUFFS BY MOUTH EVERY 4-6 HOURS NEEDED FOR WHEEZING Inhalation Medication List reviewed and reconciled with the patient * Allergies: P enicillinSulfacetamideCodeine: stomach upsetno[Allergies Verified] Objective: * Vitals: H t: 66, Wt:153, BMI:24.69, BP: 134/71,160/80, HR:94, Temp:98.1, Wt-k.4. * Examination: G eneral Examination: GENERAL APPEARANCE: p sirisha, well nourished, well developed, in no acute distress, calm and relaxed, elderly woman. HEAD: a traumatic, normocephalic. EYES: e kimberly, perrla, anicteric, conjugate. EARS: n ormal. NOSE: s eptum intact. ORAL CAVITY: n ormal, unremarkable. NECK/THYROID: n o jugular venous distention, no carotid bruit, thyroid normal. LYMPH NODES: n o enlarged lymph nodes,spleen normal. SKIN: n o suspicious lesions, anicteric. HEART: n o clicks, gallops, murmurs, or rubs, regular rhythm, S1, S2 normal, no s3, or vascular bruits. LUNGS: c lear to auscultation, good air movement, no wheezes, rales, rhonchi. BREASTS: no masses palpable bilaterally,All scars healed. ABDOMEN: b owel sounds normal, no ascites, no organomegaly, no mass. RECTAL EXAM: n ot examined. MUSCULOSKELETAL: e xtremities unremarkable, no clubbing, cyanosis or edema. PERIPHERAL PULSES: n ormal. NEUROLOGIC: a lert and oriented, cranial nerves 2-12 grossly intact, deep tendon reflexes 2+ symmetrical, motor strength normal upper and lower extremities, sensory exam intact. PSYCH: a lert, oriented. Assessment: * Assessment: 1. D uctal carcinoma in situ (DCIS) of right breast - D05.11 (Primary) N otes :Her lumpectomy scar is well-healed and there are no new findings. 2 . 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 I recurrent cancer in her breast is recently been detected.Her examination today was unremarkable 3 . E ssential hypertension - I10 N otes :Her blood pressure is 134/71. She is stable and no change in her regimen was needed. I recommended continued sodium restriction. 4 . G ERD without esophagitis - K21.9 N otes :Her reflux symptoms are well controlled with usxy-qze-izyqppl medication. 5 . F ormer smoker - Z87.891 N otes :She has been abstinent since 1998. She has a plan to prevent relapse in times of stress and illness. 6 . F ibromyalgia - M79.7 N otes :Her symptoms are stable and unchanged. Plan: * Treatment: 2. O thers Continue Furosemide Tablet, 20 MG, TAKE 1 TABLET BY MOUTH EVERY DAY FOR 30 DAYS; C ontinue Letrozole Tablet, 2.5 MG, TAKE 1 TABLET BY MOUTH EVERY DAY FOR 30 DAYS. * Procedure Codes: * Preventive Medicine: Counseling: S moking/Tobacco Use Patient counseled on the dangers of tobacco use and urged to quit. 1 * Follow Up: 6 Months, In six months (Reason: OV, To review the patient's adjuvant endocrine therapy for breast cancer.) * Images: * Sign off status: Completed true * Provider: Satinder Dias MD Date: Generated for Pina bennett/Rozina/Michellitting on: 07/08/2024 01:36 AM EST History and Physical Notes * HPI (History of Present Illness) Category Sub-Category Detail Notes COVID-19 Screening Questions Have you had any new onset fever, chills, cough, congestion, sore throat, shortness of breath, muscle aches?: No Have you been exposed to the virus withi n the last 10 days?: No Have you travelled internationally in last 10 days?: No Have you been exposed to COVID-19 in the past?: Yes Examination Category Sub-Category Detail Notes General Examination GENERAL APPEARANCE: pleasant , well nourished, well developed, in no acute distress, calm and relaxed, elderly woman HEAD: atraumatic, normocep halic EYES: eomi, perrla, anicte tanvi, conjugate EARS: normal NOSE: septum intact NECK/THYROID: no jugular venous di stention, no carotid bruit, thyroid normal HEART: no clicks, gallops, murmurs, or rubs, regular rhythm, S1, S2 normal, no s3, or vascular bruits LUNGS: clear to auscultatio n, good air movement, no wheezes, rales, rhonchi ABDOMEN: bowel sounds normal, no ascites, no organomegaly, no mass NEUROLOGIC: alert and oriented, cranial nerves 2-12 grossly intact, deep tendon reflexes 2+ symmetrical, motor strength normal upper and lower extremities, sensory exam intact SKIN: no suspicious lesion s, anicteric PERIPHERAL PULSES: normal BREASTS: no masses palpable b ilaterally,All scars healed MUSCULOSKELETAL: extremities unremark able, no clubbing, cyanosis or edema LYMPH NODES: no enlarged lymph no ludmila,spleen normal RECTAL EXAM: not examined PSYCH: alert, oriented ORAL CAVITY: normal, unremarkable
--- OUTSIDE RECORDS SUMMARY | 2024-09-09 11:00 | XMS_ITS ---
Author Organization George Dias III, MD Address [address] [place] [address] Care Team Providers Care Database Admin Name Role Phone Joseph Valencia MD Primary Care Provider Dr. George Ren III Unavailable Allergies Allergen (clinical drug ingredient) Drug/Non Drug Allergy documented on EMR Reaction Allergy Type Onset Date Status sulfacetamide Sulfacetamide Unknown Drug Allergy Active Penicillin Unknown Drug Allergy Active codeine Codeine stomach upset Drug Allergy Act janet REASON FOR VISIT Follow Up Medications Medication SIG (Take, Route, Frequency, Duration) Notes Start Date End Date Status Potassium Chloride Lizzie ER 1 0 MEQ 1 tablet with food Orally Twice a day Active Letrozole 2.5 MG TAKE 1 TABLET BY KAROL TH EVERY DAY FOR 30 DAYS Active Carvedilol 3.125 MG 2 tablet with food Oral Twice a day Active ALPRAZolam 0.5 MG 1/2 tablet Orally 4 times a day Active Albuterol Sulfate HFA 108 (9 0 Base) MCG/ACT INHALE 2 PUFFS BY MOUTH EVERY 4-6 HOURS NEEDED FOR WHEEZING Inhalation Active Mesalamine 1000 MG 1 suppository at [...] the morning Orally Once a day Active Omeprazole 20 MG 1 capsule 30 minutes before morning meal Orally Once a day Active Biotin 1000 MCG 1 tablet Orally Once a day Active Furosemide 20 MG TAKE 1 TABLET BY KAROL TH EVERY DAY FOR 30 DAYS Active Xanax 0.25 MG 1 tablet Orally Thre e times a day Active Social History Tobacco Use: Social History Observation Description Date Details (start date - stop date) Former Smoker NA - NA Tobacco Use/Smoking Question Answer Notes Patient is a former smoker How long has it been since you last smoked? > 10 years Additional Findings: Tobacco Non-User Ex-cigaret te smoker Encounters Encounter Location Date Provider Diagnosis George Dias III, MD [address] [place] [address] [place] [address] 09/09/2024 George Dias Ductal carcinoma in situ (DCIS) of right breast D05.11 Assessments Encounter Date Diagnosis (ICD Code) Assessment Notes Treatment Notes Treatment Clinical Notes 09/09/2024 Ductal carcinoma in situ (DCIS) of right breast (ICD-10 - D05.11) Her lumpectomy scar is well-healed and there are no new findings. Plan Of Treatment Medication Medication Name Sig Start Date Stop Date Notes Potassium Chloride Lizzie ER 10 MEQ 1 tabl et with food Orally Twice a day Letrozole 2.5 MG TAKE 1 TABLET BY KAROL TH EVERY DAY FOR 30 DAYS Carvedilol 3.125 MG 2 tablet with food O ral Twice a day ALPRAZolam 0.5 MG 1/2 tablet Orally 4 times a day Albuterol Sulfate HFA 108 (9 0 Base) MCG/ACT INHALE 2 PUFFS BY MOUTH EVERY 4-6 HOURS NEEDED FOR WHEEZING Inhalation Mesalamine 1000 MG 1 suppository at bed [...] in the morning Orally Once a day Omeprazole 20 MG 1 capsule 30 minutes before morning meal Orally Once a day Biotin 1000 MCG 1 tablet Orally Once a day Furosemide 20 MG TAKE 1 TABLET BY KAROL TH EVERY DAY FOR 30 DAYS Xanax 0.25 MG 1 tablet Orally Thre e times a day Progress Notes * DAJA PEACE PDOB: (75 yo F)Acc No.[id number]:09/09/2024 Progress Notes Patient: DAJA HAAS Provider: Satinder Dias MD :1950 A ge:74 Y S ex:Female Date:09/09/2024 Address:[address] [place] [address], [id number] Pcp:Joseph Valencia MD Subjective: * Chief Complaints: * 1 . Follow Up. * HPI: C OVID-19 Screening: Questions H ave you had any new onset fever, chills, cough, congestion, sore throat, shortness of breath, muscle aches? N o * ROS: G eneral/Constitutional: pain o nly normal aches and pains. C hills d enies.?Fatigue a dmits. F ever d enies. E NT: Decreased hearing d enies. R espiratory: Cough d enies. C ardiovascular: Chest pain with exertion d enies. D yspnea on exertion?denies. S hortness of breath d enies. G astrointestinal: Constipation d enies. D ecreased appetite d enies.?Diarrhea d enies. H eartburn d enies. N ausea d enies. R ectal bleeding?denies. V omiting d enies. H ematology: bruising d enies. p etechiae d enies. S wollen glands n one have been noted. G enitourinary: Frequent urination d enies. M usculoskeletal: Muscle aches d enies. P ainful joints d enies. S ciatica d enies. W eakness d enies. S kin: Itching d enies. R horacio d enies. S kin lesion(s)?denies. N eurologic: Difficulty speaking d enies. D izziness d enies.?Headache d enies. L ow back pain d enies. P sychiatric: Depressed mood d enies. 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 * Surgical History: r ight upper lobectomy, stage I adenocarcinoma of, Dr. Scherer 1998, Lumpectomy and sentinel nodes left breast 1998, 2 major veins removed right leg , 1 major vein removed- Dr. Lo , 36 weeks radiation . Left breast 11/1998, Right breast lumpectomy with 2 needle localization (DP) 03/2019, multiple negative endometrial biopsies , Lumpectomy and sentinel node biopsy left breast, [facility], Dr. Mixon 04/2021, Breast cancer surgery in 2021 2021. * Hospitalization/Major Diagno stic Procedure: D enies Past Hospitalization. * Family History: F ather: 68 yrs, COPD, hypertension, CVD, diagnosed with HTN, CVD. M other: , diagnosed with CVD, Cancer. S iblings: unknown. M aternadacia Grand Father: alive, diagnosed with DM. M [...] no longer smokes cigarettes. * Medications: T aking Xanax 0.25 MG Tablet 1 tablet Orally Three times a day , Taking hydroCHLOROthiazide 12.5 MG Capsule 1 capsule in the morning Orally Once a day , Taking Aspir-Low 81 MG Tablet Delayed Release 1 tablet Orally Once a day , Taking Biotin 1000 MCG Tablet 1 tablet Orally Once a day , Taking Omeprazole 20 MG Capsule Delayed Release 1 capsule 30 minutes before morning meal Orally Once a day , Taking Furosemide 20 MG Tablet TAKE 1 TABLET BY MOUTH EVERY DAY FOR 30 DAYS , Taking Tylenol Extra Strength 500 MG Tablet 1 tablet as needed Orally every 6 hrs , Taking Iron 28 MG Tablet 1 tablet Orally Three times a Week , Taking Multi Vitamin - Tablet 1 tablet Orally Once a day , Taking Clobetasol Propionate 0.05 % Ointment 1 application Externally Twice a day , Taking Mesalamine 1000 MG Suppository 1 suppository at bedtime Rectal Once a day , Taking Potassium Chloride Lizzie ER 10 MEQ Tablet Extended Release 1 tablet with food Orally Twice a day , Taking ALPRAZolam 0.5 MG Tablet 1/2 tablet Orally 4 times a day , Taking Carvedilol 3.125 MG Tablet 2 tablet with food Oral Twice a day , Taking Albuterol Sulfate HFA 108 (90 Base) MCG/ACT Aerosol Solution INHALE 2 PUFFS BY MOUTH EVERY 4-6 HOURS NEEDED FOR WHEEZING Inhalation , Taking Letrozole 2.5 MG Tablet TAKE 1 TABLET BY MOUTH EVERY DAY FOR 30 DAYS , Medication List reviewed and reconciled with the patient * Allergies: P enicillin, Sulfacetamide, Codeine: stomach upset. Objective: * Vitals: * Examination: G eneral Examination: GENERAL APPEARANCE: p leasant, well nourished, well developed, in no acute distress, calm and relaxed. HEAD: a traumatic, normocephalic. EYES: e kimberly, [...] vascular bruits. LUNGS: c lear to auscultation . BREASTS: no masses palpable bilaterally. ABDOMEN: b owel sounds normal, no ascites, [...] situ (DCIS) of right breast - D05.11 N otes :Her lumpectomy scar is well-healed and there are no new findings. Plan: * Treatment: 2. O thers Continue Letrozole Tablet, 2.5 MG, TAKE 1 TABLET BY MOUTH EVERY DAY FOR 30 DAYS; C ontinue Furosemide Tablet, 20 MG, TAKE 1 TABLET BY MOUTH EVERY DAY FOR 30 DAYS. * Images: * The named appointment provid er may or may not be the originator of this progress note, and it is not deemed complete until electronically signed by the appointment provider. Sign off status: Pending * Provider: Satinder Dias MD Date: 0 09/09/2024 Generated for Pina bennett/Rozina/Ashleesmitting on: 1 07/08/2024 01:35 AM EST History and Physical Notes * HPI (History of Present Illness) Category Sub-Category Detail Notes COVID-19 Screening Questions Have you had any new onset fever, chills, cough, congestion, sore throat, shortness of breath, muscle aches?: No Examination Category Sub-Category Detail Notes General Examination GENERAL APPEARANCE: pleasant , well nourished, well developed, in no acute distress, calm and relaxed HEAD: atraumatic, normocep halic EYES: eomi, perrla, anicte tanvi, conjugate EARS: normal NOSE: septum intact NECK/THYROID: no jugular venous di stention, no carotid bruit, thyroid normal HEART: no clicks, gallops, murmurs, or rubs, regular rhythm, S1, S2 normal, no s3, or vascular bruits LUNGS: clear to auscultatio n ABDOMEN: bowel sounds normal, no ascites, no organomegaly, no mass NEUROLOGIC: alert and oriented, cranial nerves 2-12 grossly intact, deep tendon reflexes 2+ symmetrical, motor strength normal upper and lower extremities, sensory exam intact SKIN: no suspicious lesion s, anicteric PERIPHERAL PULSES: normal BREASTS: no masses palpable b ilaterally MUSCULOSKELETAL: extremities unremark able, no clubbing, cyanosis or edema LYMPH NODES: no enlarged lymph no ludmila,spleen normal RECTAL EXAM: not examined PSYCH: alert, oriented ORAL CAVITY: normal, unremarkable
--- OUTSIDE RECORDS SUMMARY | 2024-12-01 08:40 | XMS_ITS ---
Author Organization [facility] Address [address] [facility] [address] [place] [address] Care Team Providers Care Logistics Technician Name Role Phone APOORVA HILL Primary Care Provider George Valente Unavailable [phone] George Dias MD Unavailable Unavailable REASON FOR VISIT ulcerative protocolitis Encounters Encounter Location Date Provider Diagnosis [facility] Outpatient [address] [place] [id number] 12/01/2024 George Nguyen Plan Of Treatment Next Appt Details Provider Name:George Nguyen , 09/09/2025 04:00:00 PM, [address] [facility], [address], [place], [address], Progress Notes * DAJA YOUNG PDOB: (75 yo F)Acc No.[id number]:12/01/2024 COLON WITH MAC Patient: Jaimee DAJA DOE Provider: Satinder Nguyne MD :1950 A ge:74 Y S ex:Female Date:12/01/2024 Address:[address] [place], [place] [phone] Pcp:APOORVA HILL Subjective: * Chief Complaints: * U lcerative protocolitis Billing Information: * Procedure Codes: * The named appointment provid er may or may not be the originator of this progress note, and it is not deemed complete until electronically signed by the appointment provider. Sign off status: Pending * Provider: Satinder Nguyen MD Date: 0 12/01/2024 Generated for Pina bennett/Rozina/Annabel on: 1 07/08/2024 01:36 AM EST
--- NOTE | ~2025-05-06 | XR_ITS ---
CLINICAL HISTORY: cough sob 1 view chest x-ray Comparison: Chest x-ray from 05/23/2022 Findings: New small bilateral pleural effusions, right worse than left. New bibasilar pulmonary opacities concerning for pneumonitis/pneumonia. Mild edema or superimposed edema also considered. Emphysematous changes are redemonstrated. Mild cardiomegaly accentuated by AP technique. Calcifications involve the imaged aorta. Degenerative changes include right AC joint. Rib deformities are nonspecific and likely old/chronic. IMPRESSION: New small bilateral pleural effusions with bilateral airspace disease concerning for pneumonitis/pneumonia. This document has been electronically signed by: Liu Mckinney MD on 05/07/2025 01:28:49
--- NOTE | ~2025-05-06 | CT_ITS ---
CLINICAL HISTORY: hx lung ca, lobectomy, COPD, dyspnea CT angiography chest with contrast. With MIP MPR Postprocessing. Comparison: Chest x-ray from 05/07/2025 Findings: No central pulmonary embolism. Mild dilatation of the main pulmonary artery as can be seen with pulmonary hypertension. Calcified and noncalcified plaque involving the imaged aorta and its branches. No aortic dissection accounting for artifacts. Tortuosity of the aorta noted, with ascending thoracic aorta measuring 3.8 cm diameter. Trace left pleural effusion. No pneumothorax. Airspace disease is multifocal and nonspecific with a left basilar predominance including multifocal centrilobular opacities. Mild bronchiectasis noted, including left lower lobe. Mild emphysematous changes and scarring noted previous right side of the procedure changes and/or partial right lung resection. Rib deformities appear old/chronic including from right-sided thoracotomy. Mild vertebral height losses appear old/chronic. Degenerative changes include imaged shoulders and imaged spine. Mild fat deposition of the imaged liver. Mild adrenal hyperplasia. Spleen is nonenlarged. Imaged retroperitoneal lymph nodes are small, nonspecific, and likely reactive. IMPRESSION: 1. No central pulmonary embolism. 2. Pulmonary opacities are nonspecific, may reflect pneumonitis/pneumonia, particularly in the left lung base. Recommend attention on follow-up to ensure resolution. 3. Trace left pleural effusion. This document has been electronically signed by: Liu Mckinney MD on 05/07/2025 03:08:43
[2025-05-06 23:51] VITALS: BP 178/68; PULSE 90; RESP 22; TEMP 37.2; O2SAT 87; BMI 29.1
[2025-05-07] VITALS (16 sets, daily range): BP systolic 132–170; BP diastolic 52–73; PULSE 84–109; RESP 14–26; TEMP 36.6–37.1; O2SAT 35–99; BMI 26.6; BMI 26.7
--- NOTE | 2025-05-07 | ED.SOB ---
HPI - SOB/Dyspnea General Chief Complaint: Dyspnea Stated Complaint: SOB,PNA/DOXY,VOMITED,INH/NO RELIEF,89% RA Time Seen by Provider: 05/07/25 01:48 History of Present Illness HPI Narrative: PMH: hypertension, COPD, history of? primary? hyperparathyroidism s/p 2 gland parathyroidectomy on 11/08/2023, lung cancer status post partial lobectomy of right lung, multiple nephrolithiasis, breast cancer status post lumpectomy and radiation therapy, per [facility] endocrine chart review Author / Clinician: Clinton Willson MD Chief Complaint Shortness of breath with wheezing; recent vomiting History of Present Illness Lupillo is an adult female who presented to the ED after her son called EMS for worsening shortness of breath. She reports being diagnosed with pneumonia at an outside facility earlier this week and was initially prescribed azithromycin, which was changed to doxycycline today; she has taken only 1?2 doses and feels it has not helped. She was also prescribed prednisone but declined to start it because of a prior adverse mood reaction. She has been using her home CPAP since Sunday. Earlier today she experienced an episode of vomiting. She denies fever, chills, abdominal pain, or baseline home oxygen use. Review of Systems Constitutional: Denies fever or chills. Respiratory: Reports shortness of breath; wheezing present. Cardiovascular: Denies chest pain. Gastrointestinal: Vomiting earlier today; denies abdominal pain. --- Physical Examination Vital Signs: Measure Value ------- ------- HR 104 bpm SpO? 97 % Physical Exam: Gen: Alert, awake, well appearing, well hydrated. Head: Atraumatic. Eyes: Anicteric, normal conjunctiva. ENT: Moist mucosa, no pallor. Neck: Supple, noted kyphosis of spine. Respiratory: Bilateral wheezing decreased air entry Cardiovascular: Tachycardic and regular rhythm; Perfusion intact, chronic peripheral edema present with scaling skin possibly lymphedema symmetric appearing Abdominal: Soft, non-distended, non-tender. Neuro: Alert; grossly intact motor in all extremities. Psych: Calm. --- Assessment & Plan Preliminary Differential: - Pneumonia - Heart failure exacerbation / valvular heart disease (abnormal mitral valve, BNP pending) - Possible sepsis Medical Decision Making This is an ED evaluation of a patient with respiratory distress and suspected pneumonia who has failed initial outpatient therapy. Diagnostic testing and empiric management are directed toward confirming infection, assessing for cardiac contribution, and improving oxygenation. Acute decompensated hypoxic respiratory failure multifactorial CHF versus pneumonia versus COPD or combination B-lines. --- Risk: - High: Threat to life/bodily Functions severe decompensated COPD versus heart failure versus pneumonia sepsis Plan: Initial Plan - High-flow nasal cannula oxygen initiated. - Nebulized bronchodilator treatments for wheezing. - Lab work: CBC, CMP, lactate, BNP, troponin, ABG. - Blood cultures x2 prior to antibiotics. - Chest X-ray (first or repeat?none documented in current chart). - Bedside lung ultrasound completed; formal imaging pending. - Doxycycline started today; patient has taken 1?2 doses. Data Analysis: - Imaging: Independent interpretation of imaging: [ ] - ECG: Independent interpretation of the ECG: Sinus rhythm rate QTC 450 no acute ischemic rate is 93 - POCUS: bedside lung & cardiac ultrasound performed and interpreted by provider. Additional Complexity: - Social Determinants of health: [ ] - Consults: [ ] - Independent review of external records: [facility] external endocrinology and other available consultation notes reviewed which provided patient's medical history --- ED Course, Updates [ ] Patient placed on high-flow nasal cannula; ABG and labs drawn; awaiting imaging and culture results. Disposition [ ] Pending results; will reassess for admission vs. discharge. Critical Care: [N/A] Past Medical / Surgical History ? Kyphosis ? Bilateral lobectomies (right and left) for lung cancer ? Upper leg procedure (details not specified) Home Medications ? CPAP nightly ? Doxycycline (started today; 1?2 doses taken) ? Prednisone ? prescribed but patient has NOT started Allergies No allergies discussed. Related Data Home Medications ?Medication ?Instructions ?Recorded ?Confirmed multivitamin 1 tab PO DAILY 10/06/20 05/07/25 omeprazole 20 mg capsule,delayed 20 mg PO BID@0630,1630 10/06/20 05/07/25 release clobetasol 0.05 % topical ointment 1 appl topical DAILY 12/06/20 05/07/25 acetaminophen 500 mg tablet 1,000 mg PO Q6H PRN Pain 05/03/21 05/07/25 ferrous sulfate 28 mg iron tablet 28 mg PO DAILY 05/03/21 05/07/25 letrozole 2.5 mg tablet 2.5 mg PO DAILY 08/09/21 05/07/25 carvedilol 3.125 mg tablet 3.125 mg PO BID 09/18/23 05/07/25 mesalamine 1.2 gram tablet,delayed 1.2 - 2.4 g PO DAILY 03/27/24 05/07/25 release potassium chloride 10 mEq 10 meq PO BID 11/10/24 05/07/25 capsule,extended release mesalamine 1,000 mg rectal 1,000 mg MT BEDTIME PRN RECTAL 01/06/25 05/07/25 suppository BLEEDING furosemide 20 mg tablet 60 mg PO DAILY 05/07/25 05/07/25 Previous Rx's ?Medication ?Instructions ?Recorded inhalational spacing device #1 ea 05/22/24 (BreatheRite MDI Spacer) fluticasone 250 mcg-salmeterol 50 1 ea inhalation BID 30 days #60 ea 05/26/24 mcg/dose blistr powdr for inhalation (Wixela Inhub) tiotropium bromide 18 mcg capsule 1 cap inhalation DAILY COPD 30 05/26/24 with inhalation device (Spiriva days #30 inhalations with HandiHaler) albuterol sulfate 1.25 mg/3 mL 2.5 mg (6 mL) inhalation Q4-6H PRN 07/10/24 solution for nebulization shortness of breath or wheezing 30 days #90 mL diltiazem HCl 180 mg 180 mg PO DAILY #90 caps 08/28/24 capsule,extended release 24 hr ammonium lactate 12 % lotion 1 appl topical BID #400 grams 01/06/25 sertraline 25 mg tablet 25 mg PO DAILY #90 tabs 01/19/25 atorvastatin 10 mg tablet (Lipitor) 10 mg PO DAILY #90 tabs 02/04/25 alprazolam 0.5 mg tablet 0.5 mg PO BID PRN anxiety #60 tabs 03/09/25 calcium 315 mg (as 1 tab PO BID #60 tabs 03/09/25 citrate)-vitamin D3 6.25 mcg (250 unit) tablet albuterol sulfate 90 mcg/actuation 2 puff inhalation Q4-6H PRN for 03/25/25 aerosol inhaler wheezing #18 ea doxycycline hyclate 100 mg capsule 100 mg PO Q12H BRONCHITIS 5 days 05/05/25 #10 caps Allergies Allergy/AdvReac Type Severity Reaction Status Date / Time codeine Allergy Severe nausea Verified 05/06/25 23:56 eplerenone Allergy Severe Gastrointestinal Verified 05/06/25 23:56 Upset Penicillins Allergy Severe Anaphylaxis Verified 05/06/25 23:56 sulfamethoxazole (From Allergy Severe HIVES/RASH/ Verified 05/06/25 23:56 BACTRIM) SWELLING tamsulosin AdvReac Severe cardiac Verified 05/06/25 23:56 [facility] Past Medical History Medical History Venous stasis dermatitis of both lower extremities Non-rheumatic mitral regurgitation Breast cancer Essential hypertension Hypercalcemia Slow to wake up after anesthesia Hx of radiation therapy Hiatal hernia PONV (postoperative nausea and vomiting) Anemia History of kidney stones Proctitis Arthritis Anxiety Hyperparathyroidism Lung cancer GERD (gastroesophageal reflux disease) Asthma-COPD overlap syndrome Pulmonary hypertension Surgical History History of surgery on lower extremity History of parathyroidectomy H/O cataract extraction Hx of cardiac catheterization Hx of varicose vein ligation and stripping History of lumpectomy of both breasts History of right inguinal hernia repair History of lithotripsy History of lobectomy of lung Hx of colonoscopy (~01/04/24) History of esophagogastroduodenoscopy Family History Family History Mother Breast cancer Bone cancer Heart attack Father Abdominal aneurysm Enlarged heart Brother Lung cancer Brain cancer Social History Social History Household Members: Family Household Members Other:: son and disabled sister Housing: House Are you a primary healthcare administration internship to a significant other at home: No Do you presently have visiting nurse or other home services: No Alcohol intake: former Patient Tobacco Use Status: Former Tobacco user Tobacco use type: Cigarette Years Smoked: 31 e-Cigarette/Vaping Use: Never Used Second Hand Smoke Exposure: No service: No Current occupational status: retired Cognitive needs: Yes (cane) Hearing needs: No Vision needs: Yes (Reading) Physical Exam Vital Signs: Vital Signs: Last Vital Signs Temp 97.0 F 05/08/25 00:00 Pulse 83 05/08/25 00:00 Resp 20 05/08/25 00:00 BP 106/58 L 05/08/25 00:00 Pulse Ox 99 05/08/25 00:00 O2 Del Method Oxymask 05/08/25 00:00 O2 Flow Rate 3 05/08/25 00:00 BMI result Body Mass Index 29.1 Course Course Course Narrative: 3:43 AM 05/07/2025 (Dr. Patrica Jackman, D.O.) CTA does not show evidence of pulmonary embolism. She does have a small pneumonitis in the left lower lobe. We will treat as COPD exacerbation with doxycycline, continue high-flow nasal cannula oxygen and admit to hospitalist for further care and evaluation. Patient understands and agrees with plan for admission. Admitted in guarded condition. Medications Administered Generic Name Dose Route Start Last Admin Trade Name Freq PRN Reason Stop Dose Admin Acetaminophen 650 mg 05/07/25 04:01 05/07/25 20:51 Acetaminophen 325 Mg Tablet PO 650 mg Q6H PRN Administration Pain, Mild 1-3,fever,headache Albuterol Sulfate 2.5 mg 05/07/25 04:04 05/07/25 07:52 Albuterol Sulfate (0.083%) 2.5 Mg/3 Ml Vial.Neb INHALE 2.5 mg Q2H PRN Administration Shortness of Breath/Wheezing Alprazolam 0.5 mg 05/07/25 20:06 05/07/25 20:51 Alprazolam 0.5 Mg Tablet PO 0.5 mg BID PRN Administration Anxiety Carvedilol 3.125 mg 05/07/25 21:00 05/07/25 20:51 Carvedilol 3.125 Mg Tablet PO 3.125 mg BID KVNG Administration Protocol Diltiazem HCl 180 mg 05/07/25 20:10 05/07/25 20:51 Diltiazem Hcl Cd 180 Mg Cap.Er.24h PO 180 mg DAILY KVNG Administration Protocol Enoxaparin Sodium 40 mg 05/07/25 09:00 05/07/25 08:38 Enoxaparin Sodium 40 Mg/0.4 Ml Syringe SUBCUT 40 mg Q24H KVNG Administration Furosemide 40 mg 05/07/25 09:00 05/07/25 08:38 Furosemide 40 Mg/4 Ml Vial IVPUSH 40 mg DAILY KVNG Administration Protocol Levofloxacin 750 mg in 150 mls @ 100 mls/hr 05/07/25 04:15 05/07/25 07:37 Levaquin IV Infused Q24H KVNG Infusion Methylprednisolone Sodium Succinate 40 mg 05/07/25 09:00 05/07/25 20:52 Methylprednisolone Sod Succ 40 Mg/Ml Vial IVPUSH 40 mg Q12H KVNG Administration Omeprazole 20 mg 05/07/25 18:45 05/07/25 19:50 Omeprazole 20 Mg Capsule.Dr PO 20 mg BID@0630,1630 KVNG Administration Potassium Chloride 10 meq 05/07/25 21:00 05/07/25 20:51 Potassium Chloride Er 10 Meq Tablet.Er PO 10 meq BID KVNG Administration Sodium Chloride 3 ml 05/07/25 08:00 05/07/25 23:52 0.9 % Sodium Chloride Flush 3 Ml Syringe IVFLUSH 3 ml QSHIFT KVNG Administration Discontinued Medications Generic Name Dose Route Start Last Admin Trade Name Freq PRN Reason Stop Dose Admin Albuterol/Ipratropium 3 ml 05/07/25 01:25 05/07/25 01:37 Albuterol/Iprat 2.5/0.5mg 3 Ml Ampul.Neb INHALE 05/07/25 01:26 3 ml ONCE ONE Administration Furosemide 40 mg 05/07/25 01:26 05/07/25 02:22 Furosemide 40 Mg/4 Ml Vial IVPUSH 05/07/25 01:27 40 mg STAT STA Administration Protocol Doxycycline Hyclate 100 mg/ 250 mls @ 166.67 mls/hr 05/07/25 03:38 05/07/25 07:37 Sodium Chloride IV 05/07/25 05:07 Infused ONCE ONE Infusion Iohexol 65 ml 05/07/25 02:07 05/07/25 02:18 Iohexol 350 Mg/Ml 100 Ml Infus..Btl IV 05/07/25 02:08 65 ml ONCE ONE Administration Methylprednisolone Sodium Succinate 80 mg 05/07/25 01:25 05/07/25 02:22 Methylprednisolone Sod Succ 125 Mg/2 Ml Vial IVPUSH 05/07/25 01:26 80 mg ONCE ONE Administration Medical Decision Making Lab Data 05/07/25 05:49 05/07/25 05:49 Labs: Lab Results 05/07/25 05/07/25 05/07/25 Range/Units 00:23 00:24 01:11 WBC 10.2 (4.8-10.8) X10*3/uL RBC 4.20 (4.20-5.50) X10*6/uL Hgb 13.1 (12.0-16.0) g/dl Hct 41.2 (37.0-47.0) % MCV 98.1 H (80.0-98.0) fL MCH 31.2 (27.0-33.0) pg MCHC 31.8 (31.0-35.0) g/dl RDW 12.9 (11.0-16.0) % Plt Count 184 (160-400) X10*3/uL MPV 9.9 (9.4-12.3) fL Immature Gran % (Auto) 0.4 (0.0-0.4) % Neut % (Auto) 77.4 H (45-73) % Lymph % (Auto) 12.6 L (20-40) % Ritchie % (Auto) 8.2 (2-11) % Eos % (Auto) 1.1 (0-4) % Baso % (Auto) 0.3 (0-2) % Lymph # (Auto) 1.3 (1.2-4.9) X10*3/uL Ritchie # (Auto) 0.8 (0.1-1.2) X10*3/uL Eos # (Auto) 0.1 (0.0-0.4) X10*3/uL Baso # (Auto) 0.0 (0.0-0.2) X10*3/uL Abs Immat Gran (auto) 0.04 H (0.00-0.03) X10*3/uL Absolute Neuts (auto) 7.9 (2.0-8.3) x10*3/uL Absolute Nucleated RBC 0.000 (0.0-0.012) X10*3/uL Nucleated RBC % (auto) 0.0 (0.0-0.2) /100WBC O2 Saturation 96.0 % ABG pH at Pt Temp 7.38 (7.35-7.45) ABG pCO2 at Pt Temp 43 (32-45) mmHg ABG pO2 at Pt Temp 82 L (83-108) mmHg ABG HCO3 26 (22-26) mmol/L ABG Base Excess (Actual) 1.2 mmol/L Sodium 140 (135-145) mmol/L Potassium 4.1 (3.3-5.1) mmol/L Chloride 107 (96-108) mmol/L Carbon Dioxide 23 (22-29) mmol/L Anion Gap 14 (12-20) BUN 11 (9-16) mg/dL Creatinine 0.58 (0.5-1.4) mg/dL Estim Creat Clear Calc 82.9 Estimated GFR > 60 Random Glucose 121 H (60-115) mg/dL Lactic Acid 1.0 (0.5-2.0) mmol/L Calcium 8.6 (8.4-10.2) mg/dL Magnesium 1.9 (1.6-2.6) mg/dL Total Bilirubin 0.4 (0.0-1.0) mg/dL AST 87 H (5-31) U/L ALT 73 H (0-31) U/L Alkaline Phosphatase 99 (39-117) U/L Troponin I High Sens 3.9 (<3.5-17.0) ng/L NT-Pro-B Natriuret Pep 2097.2 H (<300) pg/mL Total Protein 6.6 (6.5-8.0) g/dL Albumin 4.3 (3.5-5.0) g/dL Influenza Type A (PCR) NEGATIVE (Negative) Influenza Type B (PCR) NEGATIVE (Negative) RSV RNA Qual (PCR) NEGATIVE (Negative) SARS-CoV-2 RNA (RT-PCR) NEGATIVE (Negative) Procedures Procedure Narrative Procedure Narrative: EMERGENCY ULTRASOUND INTERPRETATION-Limited Echocardiography [This study was ordered, performed, and interpreted by myself. The study reveals: Impression: NORMAL LV FUNCTION, NO RV DYSFUNCTION, NO PERICARDIAL EFFUSION, severe noted mitral stenosis and regurgitation] [Emergent Cardiac for Indication: Views Used: PLAX, PSSA, A4, SX, IVC Pericardial Effusion/Tamponade Findings: NONE RV Dilation (> LV diam in 4ch apical): NONE Global LV Fxn: NORMAL. Diastology not performed Performed by: MD Anamika Images were stored CPT:23507] __ EMERGENCY ULTRASOUND INTERPRETATION-Point of Care Thoracic: IMPRESSION: Bilateral B-lines alveolar interstitial syndrome could be bilateral or multifocal pneumonia versus CHF Indication: Dyspnea Findings: Right Pleural 2ICS: ?POSITIVE SLIDING, B-lines present Right PLAPS: ?No effusion Left Pleural 2ICS: POSITIVE SLIDING, B-lines present Left PLAPS: ?No effusion Performed by: Clinton Willson MD ? Images were stored CPT: 22310,74223,73544] Discharge Plan Discharge Clinical Impression: Acute hypoxemic respiratory failure, Acute exacerbation of chronic obstructive pulmonary disease (COPD) Patient Disposition: Admitted As Inpatient Interventions: Admission Worksheet (ED) Last Done: 05/07/25 13:39 Discharge Date/Time: 05/07/25 14:28
--- NOTE | 2025-05-07 00:05 | ECG_ITS ---
Test Reason : SOB Blood Pressure : */* mmHG Vent. Rate : 93 BPM Atrial Rate : 93 BPM P-R Int : 164 ms QRS Dur : 80 ms QT Int : 362 ms P-R-T Axes : 81 26 56 degrees QTcB Int : 450 ms Normal sinus rhythm Normal ECG When compared with ECG of 18-Jun-2015 10:24, No significant change was found Referred By: Clinton Willson Electronically Signed By: JONO ROQUE MD
--- NOTE | 2025-05-07 00:08 | PC.NURSE ---
MD Benavidez and RT Saul at bedside. pt is being placed on high flow per MD. labs/ekg/xr ordered per MD verbal.
[2025-05-07 00:30] LABS: Hematocrit 41.2 % (37.0-47.0); Hemoglobin 13.1 g/dl (12.0-16.0); Imm Gran Abs Auto 0.04 X10*3/uL (0.00-0.03); Imm Gran Pct Auto 0.4 % (0.0-0.4); Lymphocytes Absolute Auto 1.3 X10*3/uL (1.2-4.9); MANUAL DIFF FLAG NO; Mean Corpuscular HGB Conc 31.8 g/dl (31.0-35.0); Mean Corpuscular Hemoglobin 31.2 pg (27.0-33.0); Mean Corpuscular Volume 98.1 fL (80.0-98.0); NRBC Abs Auto 0.000 X10*3/uL (0.0-0.012); NRBC Pct Auto 0.0 /100WBC (0.0-0.2); Platelet Count 184 X10*3/uL (160-400); Red Blood Count 4.20 X10*6/uL (4.20-5.50); White Blood Count 10.2 X10*3/uL (4.8-10.8)
[2025-05-07 00:48] LABS: Alanine Aminotransferase 73 U/L (0-31); Albumin Level 4.3 g/dL (3.5-5.0); Alkaline Phosphatase 99 U/L (39-117); Anion Gap 14 (12-20); Aspartate Amino Transferase 87 U/L (5-31); Blood Urea Nitrogen 11 mg/dL (9-16); Calcium 8.6 mg/dL (8.4-10.2); Carbon Dioxide 23 mmol/L (22-29); Chloride 107 mmol/L (96-108); Creatinine Clr Calc Pharmacy 82.9; Estimated Glomerular Filt Rate > 60; Magnesium 1.9 mg/dL (1.6-2.6); Potassium 4.1 mmol/L (3.3-5.1); Sodium 140 mmol/L (135-145); Total Protein 6.6 g/dL (6.5-8.0)
[2025-05-07 00:51] LABS: NT Pro B Type Natriuretic Pept 2097.2 pg/mL (<300); Troponin-I High Sensitivity 3.9 ng/L (<3.5-17.0)
[2025-05-07 01:09] LABS: Resp Syncy Virus RNA Qual PCR NEGATIVE (Negative); SARS COV2 PCR INHOUSE NEGATIVE (Negative)
[2025-05-07 01:16] LABS: ABG HCO3 26 mmol/L (22-26); ABG O2 % Saturation 96.0 %
[2025-05-07 01:30] LABS: ABG Refer to POC result
--- OUTSIDE RECORDS SUMMARY | 2025-05-07 01:36 | XMS_ITS | Clinical Summary ---
Author Organization [facility] Address [address] [facility] [facility] [address] [place] [address] Phone Care Team Providers Care Bowl Attendant Name Role Phone Joseph Valencia MD Primary Care Provider [phone] Allergies Active Allergy Reactions Criticality Noted Date [...] A DAY 360 tablet 1 5 Active potassium chloride (MICRO-K) 10 MEQ CR capsule TAKE 2 CAPSULES BY MOUTH ONE TIME 180 capsule 5 Active Active Problems Problem Noted Date Diagnosed Date Essential (primary) hypertension 10/29/2023 Personal history of kidney stones 10/29/2023 Other secondary hypertension 08/02/2023 Encounters Date Type Department Care Team Description 03/27/2025 Refill [facility] [address] [place] [address] Carlos Manuel Wagoner MD 03/26/2025 Refill [facility] [address] [place] [address] Carlos Manuel Wagoner MD from Last 3 [...] kg (153 lb 9.6 oz) 08/11/2024 3:34 PM EDT Height - - Body Mass Index - - Plan of Treatment Upcoming Encounters Date Type Department Care Team (Late st Contact Info) Description 08/03/2025 3:15 PM EDT Office Visit [facility] [address] [place] [address] Carlos Manuel Wagoner MD [address] [facility] [address] [place] [address] Health Maintenance Due Date Last Done Comments Pneumococcal Vaccine: 50+ Years (3 of 3 - PCV20 or PCV21) 02/01/2015 12/07/2014, 12/05/2006 Influenza Vaccine (#1) 2025 5, 03/06/2011 Hepatitis B Vaccine Aged Out No longe r eligible based on patient's age to complete this topic Insurance [facility] Care Teams Bowl Attendant Relationship Specialty Start Date End Date Joseph Valencia MD [address] [place] [address] [address] [place], [place] PCP - General Internal Medicine 08/02/23
--- OUTSIDE RECORDS SUMMARY | 2025-05-07 01:36 | XMS_ITS | Encounter Summary ---
Author Organization [facility] Address [address] [place] [phone] Phone Care Team Providers Care Adjunct Instructor Chemistry Name Role Phone Joseph Valencia MD Primary Care Provider Encounter Details Date Type Department Care Team (Late st Contact Info) Description 04/23/2019 Ancillary Orders [facility]Outside Imaging [address] [place] [address] System, Provider [place] In, [place] [address] Social History Tobacco Use Types Packs/Day Years [...] on filedocumented in this encounter Care Teams Adjunct Instructor Chemistry Relationship Specialty Start Date End Date Joseph Valencia MD [address] [place] [address] [place] [id number] PCP - General Internal Medicine 04/25/19 documented as of this encounter Additional Source Comments The information contained in this document represents components of the legal health record. It is not the complete legal health record.[facility]
--- OUTSIDE RECORDS SUMMARY | 2025-05-07 01:36 | XMS_ITS | Clinical Summary ---
Author Organization [facility] Address [address] [facility] [address] [place], [place] [id number] Phone Care Team Providers Care Pipe Racker Name Role Phone Joseph Valencia MD Primary Care Provider Allergies Active Allergy Reactions Criticality Noted Date Comments Ipratropium [place] Cough 04/25/2019 Penicillins Unknown 04/25/2019 Sulfa (Sulfonamide [...] [employer] [employer] Care Teams Pipe Racker Relationship Specialty Start Date End Date Joseph Valencia MD [address] [place] [address] [address] [place] [address] PCP - General Internal Medicine 04/25/19 Additional Source Comments The information contained in this document represents components of the legal health record. It is not the complete legal health record.[facility]
--- OUTSIDE RECORDS SUMMARY | 2025-05-07 01:36 | XMS_ITS | Encounter Summary ---
Author Organization [facility] Address [address] [facility] [address] [place] [phone] Phone Care Team Providers Care Mate Relief Name Role Phone Joseph Valencia MD Primary Care Provider Encounter Details Date Type Department Care Team (Late st Contact Info) Description 06/20/2021 Ancillary Orders [facility],Outside Imaging [address] [place] [address] System, Provider [place] In, [place] [address] Social History Tobacco Use Types Packs/Day Years [...] on filedocumented in this encounter Care Teams Mate Relief Relationship Specialty Start Date End Date Joseph Valencia MD [address] [place] [address] [place] [id number] PCP - General Internal Medicine 12/13/19 documented as of this encounter Additional Source Comments The information contained in this document represents components of the legal health record. It is not the complete legal health record.[facility]
--- OUTSIDE RECORDS SUMMARY | 2025-05-07 01:36 | XMS_ITS | Patient Health Record ---
Author Organization [facility] Address [address] [place] [address] Care Team Providers Care Ground Host/Hostess Name Role Phone APOORVA HILL Primary Care Provider George Valente Unavailable [phone] George Dias MD Unavailable Unavailable Allergies Allergen (clinical drug ingredient) Drug/Non Drug Allergy documented on EMR Reaction Allergy Type Onset Date Status Penicillin (uncoded) Unknown Allergy Active Substance with sulfonamide structure and antibacterial mechanism of action (substance) Sulfa (uncoded) Unknown Allergy Active codeine Codeine Unknown Drug Allergy Active Results Component Value Reference Range Notes Pathology Reviewed date:02/03/2025 06:03:21 PM Interpretation: Performing Lab:[facility], [address] [place] [phone] Notes/Report: Reason For Referral No Information Medications Medication SIG (Take, Route, Frequency, Duration) Notes Start Date End Date Status Iron Active Omeprazole 20 MG Capsule Delayed Release 1 Orally BID Active Turmeric Not-Taking /P RN Albuterol Sulfate (2.5 MG/3ML) 0.083% Nebulization Solution INHALE 1 VIAL EVERY 4 HOURS BY MOUTH NEEDED Inhalation; Duration: 25 Active Mesalamine 1000 MG Suppository 1 suppository at bedtime Rectal Once every night; Duration: 30 days 12/02/2024 Active Multivitamin - Tablet 1 tablet Orally Once a day; Duration: 30 day(s) Active Potassium Chloride ER 10 MEQ Capsule Extended Release Oral; Duration: 90 Days Active Aspir-81 once a day Not-Nenoin g/P RN dilTIAZem HCl ER Coated Beads 180 MG Capsule Extended Release 24 Hour TAKE ONE CAPSULE BY MOUTH DAILY Oral; Duration: 90 Active ALPRAZolam 0.5 MG Tablet as directed Orally 4x a day Active Mesalamine 1000 MG Suppository 1 Rectal Nightly; Duration: [address] [facility] Active Furosemide 40 MG Tablet 1 tablet Orally 40 mg in am 20 mg in pm Active Tylenol Extra Strength Active Potassium Chloride ER 10 MEQ Capsule Extended Release Oral; Duration: 90 Activ e Letrozole 2.5 MG Tablet Oral; Duration: 90 Active Carvedilol 3.125 MG Tablet PLEASE SEE ATTACHED FOR DETAILED DIRECTIONS Oral; Duration: 90 Active Mesalamine 1.2 GM Tablet Delayed Release 4 Orally Once a day; Duration: 30 day(s) 02/02/2024 Not-Taking/P RN Albuterol Sulfate HFA 108 (90 Base) MCG/ACT Aerosol Solution Inhalation; Duration: 25 Active Lialda 1.2 GM Tablet Delayed Release 4 Orally Once a day; Duration: 30 day(s) Please let my office know if the insurance is not covering this and we can try a different mesalamine product. Thanks 01/05/2024 Not-Taking/P RN Mesalamine 1000 MG Suppository 1 suppository at bedtime Rectal Every night at bedtime; Duration: 30 day(s) 07/20/2023 Not-Taking/P RN Immunizations Vaccine Route Administration Date Status Comme nts Influenza Unknown 03/29/2020 Administered Influenza Unknown 09/26/2023 Refused Influenza Unknown 06/11/2024 Refused Influenza Unknown 02/03/2025 Refused Social History Tobacco Use: Social History Observation Description Date Details (start date - stop date) Former Smoker NA - NA Social History Drugs/Alcohol: Social Info Question Answer Notes Alcohol Screen Did you have a drink containing alcohol in the past year? No Points 0 Interpretation Negative Tobacco Use: Social Info Question Answer Notes Tobacco Use/Smoking Patient is a former smoker When did you start smoking? 15 years old When did you stop smoking? 48 years old How long has it been since you last smoked? > 10 years Additional Findings: Tobacco Non-User Ex-cigaret te smoker Additional Details Category Social Info Options Details Miscellaneous: Marital status: Occupation: retired Section Notes: Nonsmoker; no sig alcohol Nonsmoker; no sig alcohol Nonsmoker; no sig alcohol Nonsmoker; no sig alcohol Nonsmoker; no sig alcohol Nonsmoker; no sig alcohol Nonsmoker; no sig alcohol Problems Problem Type SNOMED Code ICD Code Onset Dates Problem Status W/U Status Risk Notes Problem Epigastric pain (33987957) Epigastric abdominal pain (R10.13) Active confirmed Problem Screening for malignant neoplasm of colon (440683938) Encounter for screening for malignant neoplasm of colon (Z12.11) Active confirmed Problem History of polyp of colon (situation) (529752686) Personal history of colonic polyps (Z86.010) Active confirmed Problem Diverticular disease of colon (450272133) Diverticulosis of large intestine without perforation or abscess without bleeding (K57.30) Active confirmed Problem Gastroesophageal reflux disease (249427950) Gastroesophageal reflux disease, esophagitis presence not specified (K21.9) Active confirmed Problem Hemorrhage of rectum and anus (088262431) Rectal bleed (K62.5) Active confirmed Problem Tubulovillous adenoma of colon (6291438155) 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 Problem Ulcerative colitis (83928448) Ulcerative colitis (K51.90) Active confirmed Problem Proctitis (5280398) 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) Active c onfirmed Problem Diverticulosis of colon (948575021) Diverticulosis of colon (K57.30) Active confirmed Problem History of polyp of colon (situation) (574111644) History of colon polyps (Z86.0100) Active confirmed Vital Signs Temperature 97.6 degrees Fahrenheit 02/03/2025 Blood pressure diastolic 01 mm Hg 02/03/2025 Height 65 in 02/03/2025 Blood pressure systolic 001 mm Hg 02/03/2025 Weight 157 lbs 02/03/2025 BMI 26.12 kg/m2 02/03/2025 Procedures Procedure Date Ordered Date Performed Result Body Sit e COLONOSCOPY 10/15/2024 N/A Encounters Encounter Location Date Provider Diagnosis [facility] [address] [place], [place] [id number] 12/01/2024 George Nguyen [facility] [address] [place] [phone] 06/11/2024 George Nguyen Ulcerative colitis K51.90 ; Encounter for screening for malignant neoplasm of colon Z12.11 and Personal history of colonic polyps Z86.010 [facility] [address] [place] [phone] 10/15/2024 George Nguyen Rectal bleed K62.5 ; Ulcerative colitis K51.90 ; Gastroesophageal reflux disease, esophagitis presence not specified K21.9 ; Tubulovillous adenoma of colon K63.5 and Encounter for screening for malignant neoplasm of colon Z12.11 [facility] [address] [place] [phone] 02/03/2025 George Nguyen Encounter for screen ing for malignant neoplasm of colon Z12.11 ; Proctitis K62.89 ; Ulcerative colitis K51.90 and History of colon polyps Z86.0100 [facility] [address] [place] [phone] 06/17/2024 George Nguyen [facility] [address] [place] [phone] 10/16/2024 George Nguyen [facility] [address] [place] [phone] 12/02/2024 George Nguyen Assessments Encounter Date Diagnosis [...] keep you advised of her progress.. 02/03/2025 Ulcerative colitis (ICD-10 - K51.90) Use [...] keep you advised of her progress.. 10/15/2024 Gastroesophageal reflux disease, esophagitis presence not [...] 09/26/2023 Next Appt Details Provider Name:George Fox Nguyen , 09/09/2025 04:00:00 PM, [address] [facility] [address], [address], [place], [address], Insurance Providers Payer Name Payer Address Payer Phone Subscriber Number Group Number Insured Name Patient Relationship to Insured Coverage Start Date Coverage End Date [facility] [address] [facility] [phone] [id number] DAJA YOUNG Self - patient is the insured Medical (General) History Medical History History ICD Code Lung cancer - 1998- Removed upper right lobe Breast cancer-1998 Left- surgery and XRT ; and 03/2019 Right- surgery and XRT GERD Overactive parathyroid Anxiety Arthritis Colonoscopy in 2004 was neg. except for a hyperplastic polyp Denies MD,DM,CVA,renal disease COPD Colonscopy in 01/2020 with a [...] with kidney stones Surgical History Surgery Date(Month/Year) RUL lung resection for cancer Lumpectomies right and left breast for cancer with left sided node dissection Right inguinal hernia repair Cateracts left and right -Dr. Aman Keen surgery on both eyes Vein surgery left leg - Dr. Aponte 01/2023 Parathyroid surgery scheduiled for at [facility]
--- OUTSIDE RECORDS SUMMARY | 2025-05-07 01:36 | XMS_ITS | Encounter Summary ---
Author Organization [facility] Address [address] [facility] [address] [place] [phone] Phone Care Team Providers Care Vision Therapist Name Role Phone Joseph Valencia MD Primary Care Provider Encounter Details Date Type Department Care Team (Late st Contact Info) Description 06/20/2021 Ancillary Orders [facility],Outside Imaging [address] [place] [address] System, Provider Not In, [place] [address] Social History Tobacco Use Types Packs/Day Years [...] on filedocumented in this encounter Care Teams Vision Therapist Relationship Specialty Start Date End Date Joseph Valencia MD [address] [place] [address] [place] [address] PCP - General Internal Medicine 12/13/19 documented as of this encounter Additional Source Comments The information contained in this document represents components of the legal health record. It is not the complete legal health record.[facility]
--- OUTSIDE RECORDS SUMMARY | 2025-05-07 01:36 | XMS_ITS | Encounter Summary ---
Author Organization [facility] Address [address] [facility] [address] [place] [address] Phone Care Team Providers Care Occupational Therapist Rehab Manager Name Role Phone Joseph Valencia MD Primary Care Provider Encounter Details Date Type Department Care Team (Late st Contact Info) Description 04/11/2019 Ancillary Orders [facility],Outside Imaging [address] [place], [place] [phone] System, Provider [place] In, [place] [address] Social History Tobacco Use Types Packs/Day Years [...] on filedocumented in this encounter Care Teams Occupational Therapist Rehab Manager Relationship Specialty Start Date End Date Joseph Valencia MD [address] [place] [address] [place] [address] PCP - General Internal Medicine 04/25/19 documented as of this encounter Additional Source Comments The information contained in this document represents components of the legal health record. It is not the complete legal health record.[facility]
--- OUTSIDE RECORDS SUMMARY | 2025-05-07 01:36 | XMS_ITS | Patient Health Record ---
Author Organization Geroge Dias III, MD Address [address] [place] [address] [place] [address] Care Team Providers Care Allied Health Professional Name Role Phone Joseph Valencia MD [...] Problem Status W/U Status Risk Notes Problem 2890259 Former smoker (Z87.891) Active confirmed She has been abstinent since 1998. She has a plan to prevent relapse in times of stress and illness. Problem Fibromyalgia (781012511) Fibromyalgia (M79.7) Active confirmed Her symptoms ar e stable and unchanged. Problem 454830983 Overweight (E66.3) Active confirmed This problem duron s resolved and will be removed from her problem list Problem 98247258 Allergy to sulfa drugs (Z88.2) Active confirmed Problem 556581804 GERD without esophagitis (K21.9) Active confirmed Her reflux symptoms are well controlled with zdea-mor-oppegkg medication. Problem 39431800 Essential hypertension (I10) Active confirmed Her blood pressure is 134/71. She is stable and no change in her regimen was needed. I recommended continued sodium restriction. Problem 37252994 Penicillin allergy (Z88.0) Active confirmed Problem 599894097400407 Hematochezia (K92.1) Active confirmed #4 days. She isn't visible streaks of red blood in her stool. She will be referred to her gastroenterologi st for colonoscopy. 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 Problem 410253383 Renal cyst (N28.1) Active confirmed Diagnosis will be followed. 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 She has begun on anastrozole. She will have a radiation therapy consultation. Because of diffuse aches and pains. We have temporarily stopped anastrozole. Problem Psoriatic arthritis (784449592) Psoriatic arthritis (L40.50) Active confirmed She has [...] Insured Coverage Start Date Coverage End Date [facility] [address] [facility] [address] [facility] [place] [phone] [id number] DAJA POWELL Self - patient is the [...] l right kidney former smoker since 1998 [id number] son [id number] invasive ductal carcinoma left breast April [id number] DCIS right breast, surgery and RT Breast Cancer in 2021, High Blood Pressu re, Ulcerated Colitis Surgical History Surgery Date(Month/Year) Breast cancer surgery in 2021 2021 Lumpectomy and sentinel node biopsy left breast, [facility], Dr. Mixon 04/2021 multiple negative endometrial biopsies Right breast lumpectomy with 2 needle lo calization (DP) 03/2019 36 weeks radiation . Left breast 11/1998 1 major vein removed- Dr. Lo 2 major veins removed right leg Lumpectomy and sentinel nodes left breas t 1998 right upper lobectomy, stage I adenocarc inoma ofDr. Scherer 1998
--- OUTSIDE RECORDS SUMMARY | 2025-05-07 01:36 | XMS_ITS | Encounter Summary ---
Author Organization [facility] Address [address] [place] [address] Phone Care Team Providers Care Loader Helper Name Role Phone Joseph Valencia MD Primary Care Provider Encounter Details Date Type Department Care Team (Late st Contact Info) Description 03/28/2021 Ancillary Orders [facility],Outside Imaging [address] [place], [place] [phone] System, Provider Not In, [place] [address] Social History Tobacco Use Types Packs/Day Years [...] on filedocumented in this encounter Care Teams Loader Helper Relationship Specialty Start Date End Date Joseph Valencia MD [address] [place] [address] Dr [place], [place] [address] PCP - General Internal Medicine 04/25/19 documented as of this encounter Additional Source Comments The information contained in this document represents components of the legal health record. It is not the complete legal health record.[facility]
[2025-05-07] MEDS: Albuterol/Iprat 2.5/0.5MG 3 ML AMPUL.NEB INHALE (01:37)
--- OUTSIDE RECORDS SUMMARY | 2025-05-07 01:37 | XMS_ITS | Patient Health Record ---
Author Organization [facility] Address [address] [place] [address] Care Team Providers Care Church Worker Name Role Phone Joseph Valencia MD Primary Care Provider UnavailMerle Mejia Unavailable [phone] Allergies Allergen (clinical drug ingredient) Drug/Non Drug [...] Status W/U Status Risk Notes Problem Psoriasis (8077491) Psoriasis (L40.9) Active confirmed Problem Varicose veins of bilateral lower limbs (7331937725343 9106) Varicose veins of both legs with edema (I83.893) Active confirmed Plan Of Treatment Pending Test Test Name Order Date Ultrasound : Extremity Ultrasound Non-Va sc 04/12/2018 X ray : Foot, left 3V 03/22/2018 X ray : Foot, right 3V 03/22/2018 60587- Ganglion Cyst Injection/Aspiratio n 03/22/2018 Insurance Providers Payer Name Payer Address Payer Phone Subscriber Number Group Number Insured Name Patient Relationship to Insured Coverage Start Date Coverage End Date [employer] [address] [place] [address] [id number] Eliza Shields Self - patient is the insured Medical (General) History Medical History History ICD Code Anxiety Back,Hip,and Knee pain Cancer Hiatal hernia Sciatica Psoriasis/eczema Stomach ulcer hyperparathyroidism Surgical History Surgery Date(Month/Year) lung lobectomy right and left 1998
[2025-05-07] MEDS: iohexoL 350 MG/ML 100 ML INFUS..BTL 65 ML IV (02:18)
[2025-05-07] MEDS: Furosemide 40 MG/4 ML VIAL IVPUSH ×2 (02:22→08:38)
--- NOTE | 2025-05-07 02:42 | PC.NURSE ---
late entry. pt biba from home reporting sob. dx PNA on Sunday. was taking Zpac then started on Doxy today. not taking prescribed prednisone d/t SE. vomiting/productive cough. inhaler use 3x today with short relief. bilat wheezing per ems. 89% RA, 95% on 4L NC for ems. 87% RA on arrival. 20 RAC. 4mg IVP Zofran via ems. hx COPD. hx RUL lobectomy from lung CA, bilat lumpectomy for breast CA. MD Willson and RT called to bedside on arrival, labored breathing 2-3 word sentences. pt reports general pain however denies cp. pt was placed on high flow and breathing tx per MD with good affect. approx [address] scan on 8L oxymask per RT pt tolerated well at 100% and upon return to room placed back on high flow. pt medicated per jul. purewick in place to monitor UO. overall pt appears well, reports breathing improved, resp 15, speaking full clear sentences. Discussed high flow with MD Jackman, ?keep highflow vs trial oxymask vs NC. per MD to continue high flow at this time. pt requested warm blanket, given. lights dimmed. call myles within reach. awaiting admission.
--- NOTE | 2025-05-07 04:09 | PM.IMHP ---
History of Present Illness Date of Service: 05/07/25 Attending physician on admission: Laci Lu Chief Complaint: Shortness of breath Eliza Bunch is a 75 years old woman with past medical history significant for COPD no home oxygen, pulmonary hypertension, HFpEF, lung cancer status post right upper lobectomy, MR, bilateral breast cancer status post lumpectomy and radiation and essential hypertension presents to the emergency department complaining of shortness on breath since Sunday associated with productive cough. She has been using her home inhalers without improvement of symptoms. She denied chest pain, palpitations, dizziness, nasal congestion, fever or chills. She denied any acute gastrointestinal genitourinary symptoms. Per chart review the patient was diagnosed with pneumonia on Sunday and was started on doxycycline today. Per EMS her oxygen saturation was 87% on room air and was started on supplemental oxygen via nasal cannula. In the ED, she was found to have tachypnea and oxygen saturation of 87% on room air. She was subsequently started on high-flow. Blood workup showed no leukocytosis. Hemoglobin is 13.1 and platelets 184. ABGs showed no respiratory acidosis. PO2 is slightly low at 82% there are no electrolyte imbalances. Renal function is normal. Glucose 121. Transaminases are mildly elevated. Bilirubin and alk-phos are normal. Pro BNP is 2097.2. Chest CTA showed no PE her, it showed pulmonary opacities that may reflect pneumonitis/pneumonia particularly in the left lung base and trace left pleural effusion. ECG showed normal sinus rhythm without obvious ischemic changes. ED Tx: Solu-Medrol 80 mg IV, DuoNeb 3 mL inhaled, Lasix 40 mg IV Review of Systems Review of Systems: All 12 systems were reviewed and normal except as noted in HPI. [facility] Medical History Venous stasis dermatitis of both lower extremities Non-rheumatic mitral regurgitation Breast cancer Essential hypertension Hypercalcemia Slow to wake up after anesthesia Hx of radiation therapy Hiatal hernia PONV (postoperative nausea and vomiting) Anemia History of kidney stones Proctitis Arthritis Anxiety Hyperparathyroidism Lung cancer GERD (gastroesophageal reflux disease) Asthma-COPD overlap syndrome Pulmonary hypertension Family History Mother Breast cancer Bone cancer Heart attack Father Abdominal aneurysm Enlarged heart Brother Lung cancer Brain cancer Surgical History History of surgery on lower extremity History of parathyroidectomy H/O cataract extraction Hx of cardiac catheterization Hx of varicose vein ligation and stripping History of lumpectomy of both breasts History of right inguinal hernia repair History of lithotripsy History of lobectomy of lung Hx of colonoscopy (~01/04/24) History of esophagogastroduodenoscopy Social History Household Members: Family Household Members Other:: son and disabled sister Housing: House Are you a primary youth care worker to a significant other at home: No Do you presently have visiting nurse or other home services: No Alcohol intake: former Patient Tobacco Use Status: Former Tobacco user Tobacco use type: Cigarette Years Smoked: 31 e-Cigarette/Vaping Use: Never Used Second Hand Smoke Exposure: No service: No Current occupational status: retired Cognitive needs: Yes (cane) Hearing needs: No Vision needs: Yes (Reading) Meds Allergies Allergy/AdvReac Type Severity Reaction Status Date / Time codeine Allergy Severe nausea Verified 05/06/25 23:56 eplerenone Allergy Severe Gastrointestinal Verified 05/06/25 23:56 Upset Penicillins Allergy Severe Anaphylaxis Verified 05/06/25 23:56 sulfamethoxazole (From Allergy Severe HIVES/RASH/ Verified 05/06/25 23:56 BACTRIM) SWELLING tamsulosin AdvReac Severe cardiac Verified 05/06/25 23:56 Active Medications: Current Medications Acetaminophen (Acetaminophen 325 Mg Tablet) 650 mg PO Q6H PRN PRN Reason: Pain, Mild 1-3,fever,headache Albuterol Sulfate (Albuterol Sulfate (0.083%) 2.5 Mg/3 Ml Vial.Neb) 2.5 mg INHALE Q2H PRN PRN Reason: Shortness of Breath/Wheezing Calcium Carbonate (Calcium Carbonate 750 Mg Tab.Chew) 750 mg PO Q4H PRN PRN Reason: Heartburn Enoxaparin Sodium (Enoxaparin Sodium 40 Mg/0.4 Ml Syringe) 40 mg SUBCUT Q24H KVNG Doxycycline Hyclate 100 mg/ (Sodium Chloride) 250 mls @ 166.67 mls/hr IV ONCE ONE Stop: 05/07/25 05:07 Levofloxacin (Levaquin) 750 mg in 150 mls @ 100 mls/hr IV Q24H [facility] Ipratropium [place] (Ipratropium [place] 1 Puff/17 Mcg Inhaler) 4 puff INHALE RQ4H WHILE AWAKE [facility] Magnesium Hydroxide (Milk Of Magnesia 30 Ml Oral.Susp) 30 ml PO DAILY PRN PRN Reason: Constipation Melatonin (Melatonin 3 Mg Tablet) 6 mg PO BEDTIME PRN PRN Reason: Insomnia Methylprednisolone Sodium Succinate (Methylprednisolone Sod Succ 40 Mg/Ml Vial) 40 mg IVPUSH Q12H [facility] Sodium Chloride (0.9 % Sodium Chloride Flush 3 Ml Syringe) 3 ml IVFLUSH QSHIFT [facility] Home Medications ?Medication ?Instructions ?Recorded ?Confirmed ?Last Taken ?Type multivitamin 1 tab PO DAILY 10/06/20 05/07/25 05/06/25 History omeprazole 20 mg capsule,delayed 20 mg PO BID@0630,1630 10/06/20 05/07/25 05/06/25 History release clobetasol 0.05 % topical ointment 1 appl topical DAILY 12/06/20 05/07/25 05/06/25 History acetaminophen 500 mg tablet 1,000 mg PO Q6H PRN Pain 05/03/21 05/07/25 05/06/25 History ferrous sulfate 28 mg iron tablet 28 mg PO DAILY 05/03/21 05/07/25 05/06/25 History letrozole 2.5 mg tablet 2.5 mg PO DAILY 08/09/21 05/07/25 05/06/25 History carvedilol 3.125 mg tablet 3.125 mg PO BID 09/18/23 05/07/25 05/06/25 History mesalamine 1.2 gram tablet,delayed 1.2 - 2.4 g PO DAILY 03/27/24 05/07/25 05/06/25 History release potassium chloride 10 mEq 10 meq PO BID 11/10/24 05/07/25 05/06/25 History capsule,extended release mesalamine 1,000 mg rectal 1,000 mg [place] BEDTIME PRN RECTAL 01/06/25 05/07/25 Unknown History suppository BLEEDING furosemide 20 mg tablet 60 mg PO DAILY 05/07/25 05/07/25 05/06/25 History Physical Exam Vital Signs and Narrative: Vital Signs: Last Vital Signs Temp 98.9 F 05/06/25 23:51 Pulse 97 05/07/25 02:48 Resp 14 05/07/25 02:48 BP 145/73 H 05/07/25 02:48 Pulse Ox 97 05/07/25 02:48 O2 Del Method High Flow Nasal C annula 05/07/25 02:48 BMI result Body Mass Index 29.1 General: Alert, oriented, in no acute distress. Well nourished and cooperative. Afebrile. Nasal cannula high-flow in place. HEENT: Head normocephalic, atraumatic. PER, EOMI. Sclerae anicteric, conjunctiva clear. Oropharynx without erythema or exudate. Mucous membranes moist. Neck: Supple. Heart: RRR, no murmurs, rubs or gallops. Lungs: Tachypnea, decreased breath sound at bases. No crackles, rhonchi or wheezing. Abdomen: Soft, non tenderness, nondistended, normoactive bowel sounds. No hepatosplenomegaly, masses or masses. Extremities: Lower extremities edema. No tenderness or erythema. Musculoskeletal: Full range of motion. No joint swelling, deformity, or tenderness. Generalized atrophy. Skin: Warm/Dry. No pallor. No jaundice. Neurologic: Alert & oriented x4. Moving all extremities spontaneously. Normal speech. Psychological: Normal mood and affect. Thought process coherent. Results Labs 05/07/25 05:49 05/07/25 05:49 Labs: Laboratory Results - last 24 hr 05/07/25 05/07/25 05/07/25 00:23 00:24 01:11 MCV 98.1 H MCH 31.2 MCHC 31.8 RDW 12.9 Plt Count 184 MPV 9.9 Immature Gran % (Auto) 0.4 Neut % (Auto) 77.4 H Lymph % (Auto) 12.6 L [place] % (Auto) 8.2 Eos % (Auto) 1.1 Baso % (Auto) 0.3 Lymph # (Auto) 1.3 [place] # (Auto) 0.8 Eos # (Auto) 0.1 Baso # (Auto) 0.0 Abs Immat Gran (auto) 0.04 H Absolute Neuts (auto) 7.9 Absolute Nucleated RBC 0.000 Nucleated RBC % (auto) 0.0 O2 Saturation 96.0 ABG pH at Pt Temp 7.38 ABG pCO2 at Pt Temp 43 ABG pO2 at Pt Temp 82 L ABG HCO3 26 ABG Base Excess (Actual) 1.2 Anion Gap 14 Estim Creat Clear Calc 82.9 Estimated GFR > 60 Random Glucose 121 H Lactic Acid 1.0 Calcium 8.6 Magnesium 1.9 Total Bilirubin 0.4 AST 87 H ALT 73 H Alkaline Phosphatase 99 Troponin I High Sens 3.9 NT-Pro-B Natriuret Pep 2097.2 H Total Protein 6.6 Albumin 4.3 Influenza Type A (PCR) NEGATIVE Influenza Type B (PCR) NEGATIVE RSV RNA Qual (PCR) NEGATIVE SARS-CoV-2 RNA (RT-PCR) NEGATIVE Assessment and Plan (1) Acute hypoxic respiratory failure: Status: Acute (2) Acute exacerbation of chronic obstructive pulmonary disease (COPD): Status: Acute Plan Eliza Bunch is a 75 y/o woman who presents with: Acute hypoxic respiratory failure secondary to acute exacerbation patient on COPD due to pneumonia/pneumonitis; possible acute on chronic diastolic CHF component. Oximetry. Supplemental O2 (currently on high-flow), bronchodilator therapy, IV steroids, Lasix IV and empiric IV antibiotic therapy with Levaquin (penicillin allergy -anaphylaxis). Check respiratory panel, Legionella and strep pneumo antibodies in the urine. Essential hypertension. Continue carvedilol and diltiazem. Hx breat CA. s/p bilateral lumpectomy and radiation. On letrozole. Hyperlipidemia. Continue statin. Hx venous insufficiency. MR, mild to moderate. Follows with cardiology as an outpatient. Hx hyperparathyroidism. s/p 2 gland parathyroidectomy in 2023. Code status: Full DVT prophylaxis: Lovenox Hospitalization for at least 2 midnights for acute hypoxic respiratory failure treatment with supplemental oxygen, bronchodilator therapy, IV diuretics and empiric IV antibiotic therapy. Quality Stroke Does the patient have a stroke diagnosis?: No VTE Prior VTE?: No VTE Risk Level:: Medical - moderate - high VTE Device Contraindication: Treatment Not Indicated VTE Drug Contraindication: N/A - Med Ordered
[2025-05-07 05:54] LABS: MANUAL DIFF FLAG NO
[2025-05-07 05:56] LABS: Hematocrit 40.3 % (37.0-47.0); Hemoglobin 13.0 g/dl (12.0-16.0); Imm Gran Abs Auto 0.03 X10*3/uL (0.00-0.03); Imm Gran Pct Auto 0.4 % (0.0-0.4); Lymphocytes Absolute Auto 0.5 X10*3/uL (1.2-4.9); Mean Corpuscular HGB Conc 32.3 g/dl (31.0-35.0); Mean Corpuscular Hemoglobin 31.4 pg (27.0-33.0); Mean Corpuscular Volume 97.3 fL (80.0-98.0); NRBC Abs Auto 0.000 X10*3/uL (0.0-0.012); NRBC Pct Auto 0.0 /100WBC (0.0-0.2); Platelet Count 178 X10*3/uL (160-400); Red Blood Count 4.14 X10*6/uL (4.20-5.50); White Blood Count 6.8 X10*3/uL (4.8-10.8)
--- NOTE | 2025-05-07 05:58 | HO.NURTONUR ---
pt is axox4 ambulates with a cane, came in from home reporting sob. was diagnosed with pneumonia on Sunday and started on zpack then switched to doxy today. after taking dose pt began vomiting. used inhaler at home with minimal relief. on arrival 87% on RA, no o2 at baseline. placed on highflow. received IV lasix and solumedrol. IV abx. significant improvement since arrival. CTA showed pneumonia/pneumonitis. lung CA; right upper lobectomy. bilateral breast CA; lumpectomy. limb alert on LUE no BP/blood draws. purewick in place to monitor UO. 20g RAC.
[2025-05-07 06:10] LABS: Anion Gap 16 (12-20); Blood Urea Nitrogen 8 mg/dL (9-16); Calcium 8.3 mg/dL (8.4-10.2); Carbon Dioxide 25 mmol/L (22-29); Chloride 105 mmol/L (96-108); Creatinine Clr Calc Pharmacy 81.4; Estimated Glomerular Filt Rate > 60; Magnesium 1.8 mg/dL (1.6-2.6); Potassium 3.6 mmol/L (3.3-5.1); Sodium 142 mmol/L (135-145)
--- NOTE | 2025-05-07 07:32 | MHC.EDTECH ---
incon care giving. Repositioned. pillows under the heels.
[2025-05-07] MEDS: Albuterol Sulfate (0.083%) 2.5 MG/3 ML VIAL.NEB INHALE (07:52)
--- NOTE | 2025-05-07 08:11 | HO.PM.IMPN ---
Subjective Subjective Date of Service: 05/07/25 Interval History: Patient is quite emotional, was concerned about her overall health Patient is on high-flow, albuterol Reports Akash did not work and only took 1 dose of doxy last night and did not see any relief from multiple doses of albuterol inhaler Review of Systems Review of Systems: Yes all other systems are reviewed and are negative Physical Exam Exam: Exam: General: AOx3, respiratory distress with bilateral accessory muscle use Resp: Bilateral wheezing and rhonchi with accessory muscle use, on high-flow saturating 92% CVS: S1, S2, RRR GI: +BS, NT, no distention Neuro: Cranial nerves II-XII grossly intact bilaterally. Motor grossly intact bilaterally Psych: Anxious and tearful affect that all her family including her and it is only her sister and son right now and at that it is Esme and she is in the hospital Vital Signs: Vital Signs: Last Vital Signs Temp 98.7 F 05/07/25 04:02 Pulse 92 05/07/25 07:50 Resp 16 05/07/25 07:50 BP 153/55 H 05/07/25 06:08 Pulse Ox 96 05/07/25 06:08 O2 Del Method High Flow Nasal C annula 05/07/25 06:08 BMI result Body Mass Index 29.1 Objective Data Active Medications Acetaminophen (Acetaminophen 325 Mg Tablet) 650 mg PO Q6H PRN PRN Reason: Pain, Mild 1-3,fever,headache Albuterol Sulfate (Albuterol Sulfate (0.083%) 2.5 Mg/3 Ml Vial.Neb) 2.5 mg INHALE Q2H PRN PRN Reason: Shortness of Breath/Wheezing Last Admin: 05/07/25 07:52 Dose: 2.5 mg Documented By: AMANDA Calcium Carbonate (Calcium Carbonate 750 Mg Tab.Chew) 750 mg PO Q4H PRN PRN Reason: Heartburn Enoxaparin Sodium (Enoxaparin Sodium 40 Mg/0.4 Ml Syringe) 40 mg SUBCUT Q24H KV[facility] Furosemide (Furosemide 40 Mg/4 Ml Vial) 40 mg IVPUSH DAILY KVNG; Protocol Levofloxacin (Levaquin) 750 mg in 150 mls @ 100 mls/hr IV Q24H KVNG Last Infusion: 05/07/25 07:37 Dose: Infused Documented By: DANO Magnesium Hydroxide (Milk Of Magnesia 30 Ml Oral.Susp) 30 ml PO DAILY PRN PRN Reason: Constipation Melatonin (Melatonin 3 Mg Tablet) 6 mg PO BEDTIME PRN PRN Reason: Insomnia Methylprednisolone Sodium Succinate (Methylprednisolone Sod Succ 40 Mg/Ml Vial) 40 mg IVPUSH Q12H [facility] Sodium Chloride (0.9 % Sodium Chloride Flush 3 Ml Syringe) 3 ml IVFLUSH QSHIFT [facility] Labs 05/07/25 05:49 05/07/25 05:49 Labs: Laboratory Results - last 24 hr 05/07/25 05/07/25 05/07/25 00:23 00:24 01:11 MCV 98.1 H MCH 31.2 MCHC 31.8 RDW 12.9 Plt Count 184 MPV 9.9 Immature Gran % (Auto) 0.4 Neut % (Auto) 77.4 H Lymph % (Auto) 12.6 L [place] % (Auto) 8.2 Eos % (Auto) 1.1 Baso % (Auto) 0.3 Lymph # (Auto) 1.3 [place] # (Auto) 0.8 Eos # (Auto) 0.1 Baso # (Auto) 0.0 Abs Immat Gran (auto) 0.04 H Absolute Neuts (auto) 7.9 Absolute Nucleated RBC 0.000 Nucleated RBC % (auto) 0.0 O2 Saturation 96.0 ABG pH at Pt Temp 7.38 ABG pCO2 at Pt Temp 43 ABG pO2 at Pt Temp 82 L ABG HCO3 26 ABG Base Excess (Actual) 1.2 Anion Gap 14 Estim Creat Clear Calc 82.9 Estimated GFR > 60 Random Glucose 121 H Lactic Acid 1.0 Calcium 8.6 Magnesium 1.9 Total Bilirubin 0.4 AST 87 H ALT 73 H Alkaline Phosphatase 99 Troponin I High Sens 3.9 NT-Pro-B Natriuret Pep 2097.2 H Total Protein 6.6 Albumin 4.3 Influenza Type A (PCR) NEGATIVE Influenza Type B (PCR) NEGATIVE RSV RNA Qual (PCR) NEGATIVE SARS-CoV-2 RNA (RT-PCR) NEGATIVE 05/07/25 05:49 MCV 97.3 MCH 31.4 MCHC 32.3 RDW 12.9 Plt Count 178 MPV 10.1 Immature Gran % (Auto) 0.4 Neut % (Auto) 89.6 H Lymph % (Auto) 7.8 L [place] % (Auto) 1.9 L Eos % (Auto) 0.0 Baso % (Auto) 0.3 Lymph # (Auto) 0.5 L [place] # (Auto) 0.1 Eos # (Auto) 0.0 Baso # (Auto) 0.0 Abs Immat Gran (auto) 0.03 Absolute Neuts (auto) 6.1 Absolute Nucleated RBC 0.000 Nucleated RBC % (auto) 0.0 O2 Saturation ABG pH at Pt Temp ABG pCO2 at Pt Temp ABG pO2 at Pt Temp ABG HCO3 ABG Base Excess (Actual) Anion Gap 16 Estim Creat Clear Calc 81.4 Estimated GFR > 60 Random Glucose 134 H Lactic Acid Calcium 8.3 L Magnesium 1.8 Total Bilirubin AST ALT Alkaline Phosphatase Troponin I High Sens NT-Pro-B Natriuret Pep Total Protein Albumin Influenza Type A (PCR) Influenza Type B (PCR) RSV RNA Qual (PCR) SARS-CoV-2 RNA (RT-PCR) Assessment and Plan (1) Acute hypoxemic respiratory failure: Status: Acute Plan 74 year old female with complicated medical history inclding left breast cancer 1998 with lumpectomy with lymph node harvesting, R breast cancer treated with lumpectomy and radiation then evista followed by letrozole, osteoporosis, hyperparathroidism s/p resection 2.5 lobes, htn, asthma/copd overlasp, pulm hypertension, hx lung cancer presents to the ED after failing OP abx AHRF due AHRF Asthma/COPD overlap syndrome PE r/o with imaging POA. Likely due to pneumonia left lower lobe, pneumonitis, with a mild component of fluid overload because of the latter Flu and Legionella studies pending Continue IV empiric antibiotics, steroids, bronchodilator therapy, Lasix and wean as tolerated Currently saturating 92% on high-flow HFpEF Continue IV diuresis, will wean as per fluid status and resp status Monitor volume status, I/Os Chronic medical conditions and its management-continue home meds as noted below: Essential Hypertension Continue carvedilol Continue diltiazem History of Breast Cancer s/p bilateral lumpectomy and radiation. Continue letrozole 6. Hyperlipidemia Continue statin 7. Venous Insufficiency No acute intervention 8. Mitral Regurgitation (Mild?Moderate) Chronic, stable Outpatient cardiology follow-up 9. History of Hyperparathyroidism s/p two-gland parathyroidectomy (2024). No acute issues OP mx lovenox 40 sc daily full code In my clinical judgment, patient needs multiple IV medications for cardiac and pulmonary presentation and needs at least a couple more days of hospitalization which can not be provided in acute settings. Quality Stroke Does the patient have a stroke diagnosis?: No VTE Prior VTE?: No VTE Risk Level:: Medical - moderate - high VTE Device Contraindication: Treatment Not Indicated VTE Drug Contraindication: N/A - Med Ordered
[2025-05-07 09:21] LABS: Chlamydia pneumoniae PCR Not Detected (Not Detect.); Coronavirus 229E PCR Not Detected (Not Detect.); Coronavirus HKU1 PCR Not Detected (Not Detect.); Coronavirus NL63 PCR Not Detected (Not Detect.); Coronavirus OC43 PCR Not Detected (Not Detect.); RSV PCR Not Detected (Not Detect.); Rhino/Enterovirus PCR Not Detected (Not Detect.)
[2025-05-07 10:15] LABS: Influenza A H1 PCR Not Detected (Not Detect.); Influenza A H1-2009 PCR Not Detected (Not Detect.); Influenza A H3 PCR Not Detected (Not Detect.); SARS-CoV-2 PCR Not Detected (Not Detect.)
--- NOTE | 2025-05-07 10:33 | PHA.MEDREC ---
Pharmacy Consult ? Medication Reconciliation Pharmacy has completed the medication reconciliation. Spoke to patient to confirm medication list. Per patient, she does not take alendronate, aspirin, diclofenac gel nor prednisone. She takes carvedilol 3.125 mg bid, furosemide 60 mg all at once daily, mesalamine 1-2 tablets daily, mesalamine rectal suppository at bedtime prn rectal bleeding, potassium 10 mEq bid and spiriva once daily (but she tends to forget to take it). She got doxycycline 100 mg on 05/05/25 and is taking it. Last dose of medications was yesterday 05/06/25.
[2025-05-07 19:01] LABS: Appearance Urine Cloudy; Glucose Urine UA Negative (Negative); PH 5.5 (5.0-9.0); Specific Gravity - Urine 1.020 (1.005-1.025); UMIC TRIGGER UACC YES
[2025-05-07 19:04] LABS: UACC Culture Trigger YES
[2025-05-07] MEDS: Potassium Chloride ER 10 MEQ TABLET.ER PO (20:51)
[2025-05-07] MEDS: dilTIAZem HCL CD 180 MG CAP.ER.24H PO (20:51)
[2025-05-07] MEDS: 0.9 % Sodium Chloride Flush 3 ML SYRINGE IVFLUSH (23:52)
[2025-05-08] VITALS (13 sets, daily range): BP systolic 106–166; BP diastolic 58–75; PULSE 74–86; RESP 16–20; TEMP 36–36.6; O2SAT 93–99
--- NOTE | 2025-05-08 07:00 | CA_ITS ---
Transthoracic Echocardiogram Patient (Last, First, Middle): Eliza Ann P Gender: F Date of : 1950 Age: 75 Procedure Date: 05/08/2025 Procedure Type: Transthoracic Echocardiogram Location: ER Height: 162.56 cm Weight: 70.31 kg BSA: 1.76 m2 Heart Rate: 78 bpm BP: 141 / 60 mmHg Cuff Knitter: MANUEL Rivas MD: Laci Lu MD Popped Corn Oven Attendant: Cornelius Ponce MD Symptoms: Pleural effusion, hypoxic respiratory failure Study Quality: Fair ECG Rhythm: Sinus Conclusions: - 1. Normal LV ejection fraction of 60 65% with mildly increased LV wall thickness with impaired relaxation filling pattern 2. Mildly dilated left atrium 3. Calcific aortic valve changes noted with at least mild aortic regurgitation and early mild aortic stenosis 4. Severe mitral annular calcification, mitral stenosis can not be entirely ruled out 5. Mildly dilated ascending aorta 6. No gross pericardial effusion Findings Left Ventricle Normal left ventricular size and systolic function. There is mildly increased left ventricular wall thickness. The visually estimated ejection fraction is between 60-65%. Spectral Doppler is indicative of an impaired relaxation filling pattern. Right Ventricle Normal right ventricular cavity size and systolic function. Atria The left atrium is mildly dilated. Interatrial shunt cannot be excluded. The right atrium was not well visualized. Aortic Valve The aortic valve was not well visualized. The peak aortic gradient is 16 mmHg.The mean gradient is 10 mmHg. The aortic valve area is 2.44 cm2. There is mild aortic valve regurgitation. Mitral Valve There is severe anterior and posterior mitral leaflet thickening. There is severe anterior and severe posterior mitral annular calcification. There is severe mitral annular calcification. There is no mitral valve regurgitation. Pulmonic Valve The pulmonic valve was not well visualized. Tricuspid Valve Likely normal tricuspid valve structure and function. Tricuspid regurgitation envelope is inadequate for calculation of right ventricular systolic pressure. Indeterminate right atrial pressure. Great Vessels The aorta was not well visualized. The pulmonary artery was not well visualized. There is mild dilatation of the ascending aorta measuring 4.10 cm. Venous The inferior vena cava is normal in size and collapses greater than 50% with inspiration. Pericardium/Pleural There is no evidence of pericardial effusion. Prior Study Comparison No significant change compared to prior study dated: 06/09/2024. Measurements 2D Linear Measurements IVSd: 1.29 0.6-0.9/0.6-1.0 cm LVIDd: 3.54 3.9-5.3/4.2-5.9 cm LVIDd Index: 2.01 2.4-3.2/2.2-3.1 cm/m2 LVIDs: 2.58 2.0-3.6 cm LVPWd: 1.50 0.7-1.1 cm LA Diam: 4.20 2.7-3.8/3.0-4.0 cm LAIDs Index: 2.39 1.5-2.3 cm/m2 LV Mass: 217.65 67-162/88-224 g LV Mass Index: 123.66 43-95/49-115 g/m2 LVOT Diam: 2.10 3.0+(-)1.3 cm 2D Systolic Function EF 4C: 69.10 >55% EF 2C: 58.70 >55% EF BiP: 64.60 >55% Mitral Valve MV VTI: 0.46 MV Pk Perez: 1.74 MV Mn Perez: 1.01 MV Pk Grad: 12.00 MV Mn Grad: 5.00 MV Pk E: 1.26 MV PK A: 1.56 MV Decel Time: 265.00 E/A: 0.80 E'Lateral: 7.07 E'Medial: 4.79 E/E' Med: 26.30 E/E' Lat: 17.80 PHT: 78.00 MVA PHT: 2.82 MVA Continuity: 2.19 Decel Fountain: 4.74 Aortic Valve AoV Pk Perez: 1.98 AoV Mn Perez: 1.46 AoV VTI: 0.41 AoV Pk Grad: 16.00 Aov Mn Grad: 10.00 LEX Cont.VTI: 2.44 AI Pk Perez: 3.87 AI Fountain: 3.17 LVOT LVOT Pk Perez: 1.42 LVOT Mn Perez: 0.96 LVOT VTI: 0.29 LVOT Pk Grad: 8.00 LVOT Mn Grad: 4.00 LVOT Diam: 2.10 LVOT Area: 3.46 Diastolic Function MV Pk E: 1.26 MV Pk A: 1.56 E/A: 0.80 E'Medial: 4.79 E/E' Med: 26.30 E' Laterial: 7.07 E/E' Lat: 17.80 Right Ventricle TAPSE (mm): 21.70 TVS' Perez: 13.40 Tricuspid Valve RA Press: 3.00 Great Vessels Aorta Sinus of Valsalva: 2.90 2.0-3.5 cm Ao Asc: 4.10 2.1-3.4 cm Pulmonary Veins Pulm Vein S/D 1.40 Pulmonary Valve PV Pk Perez: 1.28 Peak PV Grad: 7.00 Updated in Other Vendor System with Status of Final Cornelius Ponce MD electronically signed on 05/08/2025 4:29:29 PM with status of Final
--- NOTE | 2025-05-08 07:35 | HO.PM.IMPN ---
Subjective Subjective Date of Service: 05/08/25 Interval History: feels better compared to yest req PT/OT Review of Systems Review of Systems: Yes all other systems are reviewed and are negative Physical Exam Exam: Exam: General: AOx3 Resp: sat >92%on 2L o2 CVS: S1, S2, RRR GI: +BS, NT, no distention spine: kyphoscoliosis Neuro: Motor grossly intact bilaterally Psych: Anxious Vital Signs: Vital Signs: Last Vital Signs Temp 97.6 F 05/08/25 07:28 Pulse 86 05/08/25 07:28 Resp 20 05/08/25 07:28 BP 141/60 H 05/08/25 07:28 Pulse Ox 97 05/08/25 07:28 O2 Del Method Oxymask 05/08/25 07:28 O2 Flow Rate 3 05/08/25 07:28 BMI result Body Mass Index 26.7 Objective Data Active Medications Acetaminophen (Acetaminophen 325 Mg Tablet) 650 mg PO Q6H PRN PRN Reason: Pain, Mild 1-3,fever,headache Last Admin: 05/07/25 20:51 Dose: 650 mg Documented By: MOLINA Albuterol Sulfate (Albuterol Sulfate (0.083%) 2.5 Mg/3 Ml Vial.Neb) 2.5 mg INHALE Q2H PRN PRN Reason: Shortness of Breath/Wheezing Last Admin: 05/07/25 07:52 Dose: 2.5 mg Documented By: AMANDA Alprazolam (Alprazolam 0.5 Mg Tablet) 0.5 mg PO BID PRN PRN Reason: Anxiety Last Admin: 05/07/25 20:51 Dose: 0.5 mg Documented By: MOLINA Atorvastatin Calcium (Atorvastatin Calcium 10 Mg Tablet) 10 mg PO DAILY [facility] Calcium Carbonate (Calcium Carbonate 750 Mg Tab.Chew) 750 mg PO Q4H PRN PRN Reason: Heartburn Carvedilol (Carvedilol 3.125 Mg Tablet) 3.125 mg PO BID PEND[facility] SALE TO [facility]; Protocol Last Admin: 05/07/25 20:51 Dose: 3.125 mg Documented By: MOLINA Diltiazem HCl (Diltiazem Hcl Cd 180 Mg Cap.Er.24h) 180 mg PO DAILY [facility]; Protocol Last Admin: 05/07/25 20:51 Dose: 180 mg Documented By: MOLINA Enoxaparin Sodium (Enoxaparin Sodium 40 Mg/0.4 Ml Syringe) 40 mg SUBCUT Q24H [facility]END[facility] TO [facility] Last Admin: 05/07/25 08:38 Dose: 40 mg Documented By: DANO Furosemide (Furosemide 40 Mg/4 Ml Vial) 40 mg IVPUSH DAILY [facility] TO [facility]; Protocol Last Admin: 05/07/25 08:38 Dose: 40 mg Documented By: DANO Levofloxacin (Levaquin) 750 mg in 150 mls @ 100 mls/hr IV Q24H [facility]END[facility] TO [facility] Last Infusion: 05/08/25 05:50 Dose: Infused Documented By: MOLINA Letrozole (Letrozole 2.5 Mg Tablet) 2.5 mg PO DAILY [facility] TO [facility] Magnesium Hydroxide (Milk Of Magnesia 30 Ml Oral.Susp) 30 ml PO DAILY PRN PRN Reason: Constipation Melatonin (Melatonin 3 Mg Tablet) 6 mg PO BEDTIME PRN PRN Reason: Insomnia Methylprednisolone Sodium Succinate (Methylprednisolone Sod Succ 40 Mg/Ml Vial) 40 mg IVPUSH Q12H [facility] Last Admin: 05/07/25 20:52 Dose: 40 mg Documented By: MOLINA Omeprazole (Omeprazole 20 Mg Capsule.Dr) 20 mg PO BID@0630,1630 [facility] Last Admin: 05/08/25 06:24 Dose: 20 mg Documented By: MOLINA Potassium Chloride (Potassium Chloride Er 10 Meq Tablet.Er) 10 meq PO BID [facility] TO [facility] Last Admin: 05/07/25 20:51 Dose: 10 meq Documented By: MOLINA Sertraline HCl (Sertraline Hcl 25 Mg Tablet) 25 mg PO DAILY [facility] Sodium Chloride (0.9 % Sodium Chloride Flush 3 Ml Syringe) 3 ml IVFLUSH QSHIFT PENDING SALE TO [facility] Last Admin: 05/07/25 23:52 Dose: 3 ml Documented By: MOLINA Labs 05/07/25 05:49 05/07/25 05:49 Labs: Laboratory Results - last 24 hr 05/07/25 05/07/25 07:39 16:15 Urine Color [place] A Urine Appearance Cloudy Urine pH 5.5 Ur Specific [place] 1.020 Urine Protein 100 (2+) H Urine Glucose (UA) Negative Urine Ketones Negative Urine Blood Large (3+) H Urine Nitrite Negative Ur Leukocyte Esterase Small (1+) H Urine RBC >20 H Urine WBC 6-10 H Ur Squamous Epith Cells 0-2 Urine Bacteria None Seen Hyaline Casts 3-5 Respiratory Panel Wong See Note Adenovirus (Rapid PCR) Not Detected B.pert (TEM-PCR) Not Detected B.parapertussis DNA PCR Not Detected C. pneumoniae DNA (PCR) Not Detected Coronavirus OC43 (PCR) Not Detected Coronavirus HKU1 (PCR) Not Detected Coronavirus 229E (PCR) Not Detected Coronavirus NL63 (PCR) Not Detected Human Metapneumovir PCR Detected A Influenza A (RT-PCR) Not Detected Influenza A (H1) PCR Not Detected Influ A (H1/09) PCR Not Detected Influenza A (H3) PCR Not Detected Influenza B (RT-PCR) Not Detected M. pneumoniae (PCR) Not Detected Parainfluenza 1 (PCR) Not Detected Parainfluenza 2 (PCR) Not Detected Parainfluenza 3 (PCR) Not Detected Parainfluenza 4 (PCR) Not Detected RSV (PCR) Not Detected Entero/Rhino (PCR) Not Detected SARS-CoV-2 RNA (RT-PCR) Not Detected Microbiology Microbiology Results: Microbiology 05/07/25 00:23 Blood Culture - Preliminary Blood - Venous No growth after 24 hours. 05/07/25 00:23 Blood Culture - Preliminary Blood - Venous No growth after 24 hours. Assessment and Plan (1) Acute hypoxemic respiratory failure: Status: Acute Plan 74 year old female with complicated medical history inclding left breast cancer 1998 with lumpectomy with lymph node harvesting, R breast cancer treated with lumpectomy and radiation then evista followed by letrozole, osteoporosis, hyperparathroidism s/p resection 2.5 lobes, htn, asthma/copd overlasp, pulm hypertension, hx lung cancer presents to the ED after failing OP abx AHRF due AHRF Asthma/COPD overlap syndrome PE r/o with imaging POA. Likely due to pneumonia left lower lobe, pneumonitis, with a mild component of fluid overload because of the latter Flu and Legionella studies pending Continue IV empiric antibiotics, steroids, bronchodilator therapy, Lasix and wean as tolerated Currently saturating 92% on high-flow HFpEF Continue IV diuresis, will wean as per fluid status and resp status Monitor volume status, I/Os Chronic medical conditions and its management-continue home meds as noted below: Essential Hypertension Continue carvedilol Continue diltiazem History of Breast Cancer s/p bilateral lumpectomy and radiation. Continue letrozole 6. Hyperlipidemia Continue statin 7. Venous Insufficiency No acute intervention 8. Mitral Regurgitation (Mild?Moderate) Chronic, stable Outpatient cardiology follow-up 9. History of Hyperparathyroidism s/p two-gland parathyroidectomy (2023). No acute issues OP mx 10. Kyphoscoliosis req P/OT lovenox 40 sc daily full code In my clinical judgment, patient needs multiple IV medications for cardiac and pulmonary presentation and needs at least a couple more days of hospitalization which can not be provided in acute settings. Quality Stroke Does the patient have a stroke diagnosis?: No VTE Prior VTE?: No VTE Risk Level:: Medical - moderate - high VTE Device Contraindication: Treatment Not Indicated VTE Drug Contraindication: N/A - Med Ordered
[2025-05-08] MEDS: Furosemide 40 MG/4 ML VIAL IVPUSH (07:59)
[2025-05-08] MEDS: Potassium Chloride ER 10 MEQ TABLET.ER PO ×2 (08:00→21:35)
[2025-05-08] MEDS: dilTIAZem HCL CD 180 MG CAP.ER.24H PO (08:00)
[2025-05-08] MEDS: 0.9 % Sodium Chloride Flush 3 ML SYRINGE IVFLUSH ×2 (08:00→18:29)
--- NOTE | 2025-05-08 09:43 | MHC.CM.PN ---
IMM 05/08/25, Pt. lives with her son and sister who is disabled, and pt takes care of her. PCP confirmed: Dr. Vann. Pt. does not use home health services or DME. She will need a ride home at DC. DCP: home, self care, CM to follow for DC needs.
--- NOTE | 2025-05-08 13:41 | HO.WOUND ---
Wound Consult: Initial 75 yr old female admitted to [facility] on 05/07/25 - See progress notes and H&P for detailed history. Wound consult placed for legs. Patient agreeable to assessment and photo documentation. No wounds, patient reports no history of wounds. Some edema noted, patient noted to have legs in dependent position. Mild redness noted. Recommendations: Leg elevation- no topical dressing recommended at this time Re-consult wound care Nurse for wound deterioration or wound changes.
[2025-05-08] MEDS: Fluticasone/Vilanterol 100/25 BLST.W.DEV 1 PUFF INHALE (19:46)
[2025-05-08] MEDS: Ammonium Lactate 12 % Lotion 226 GM BOTTLE 1 APPL TOPICAL (21:35)
[2025-05-09 03:12] VITALS: BP 171/75; PULSE 78; RESP 18; TEMP 36.9; O2SAT 95
[2025-05-09 07:33] VITALS: BP 153/68; PULSE 72; RESP 18; TEMP 36.9; O2SAT 95
--- NOTE | 2025-05-09 07:34 | HO.PM.IMPN ---
Subjective Subjective Date of Service: 05/09/25 Physical Exam Vital Signs: Vital Signs: Last Vital Signs Temp 98.5 F 05/09/25 03:12 Pulse 78 05/09/25 03:12 Resp 18 05/09/25 03:12 BP 171/75 H 05/09/25 03:12 Pulse Ox 95 05/09/25 03:12 O2 Del Method Nasal Cannula 05/09/25 03:12 O2 Flow Rate 2 05/09/25 03:12 BMI result Body Mass Index 26.7 Objective Data Active Medications Acetaminophen (Acetaminophen 325 Mg Tablet) 650 mg PO Q6H PRN PRN Reason: Pain, Mild 1-3,fever,headache Last Admin: 05/09/25 03:53 Dose: 650 mg Documented By: BRIANNA Albuterol Sulfate (Albuterol Sulfate (0.083%) 2.5 Mg/3 Ml Vial.Neb) 2.5 mg INHALE Q2H PRN PRN Reason: Shortness of Breath/Wheezing Last Admin: 05/07/25 07:52 Dose: 2.5 mg Documented By: AMANDA Alprazolam (Alprazolam 0.5 Mg Tablet) 0.5 mg PO BID PRN PRN Reason: Anxiety Last Admin: 05/08/25 21:40 Dose: 0.5 mg Documented By: DANNY Atorvastatin Calcium (Atorvastatin Calcium 10 Mg Tablet) 10 mg PO DAILY [facility] Last Admin: 05/08/25 08:00 Dose: 10 mg Documented By: KIM Betamethasone Dipropion Augmented (Betamethasone Dip Aug 0.05% Cr 15 Gm Tube) 1 appl TOPICAL DAILY [facility] Calcium Carbonate (Calcium Carbonate 750 Mg Tab.Chew) 750 mg PO Q4H PRN PRN Reason: Heartburn Carvedilol (Carvedilol 3.125 Mg Tablet) 3.125 mg PO BID [facility]; Protocol Last Admin: 05/08/25 21:32 Dose: 3.125 mg Documented By: DANNY Diltiazem HCl (Diltiazem Hcl Cd 180 Mg Cap.Er.24h) 180 mg PO DAILY [facility]; Protocol Last Admin: 05/08/25 08:00 Dose: 180 mg Documented By: KIM Enoxaparin Sodium (Enoxaparin Sodium 40 Mg/0.4 Ml Syringe) 40 mg SUBCUT Q24H [facility] Last Admin: 05/08/25 08:00 Dose: 40 mg Documented By: KIM Fluticasone/Vilanterol (Fluticasone/Vilanterol 100/25 Blst.W.Dev) 1 puff INHALE RDAILY [facility] Last Admin: 05/08/25 19:46 Dose: 1 puff Documented By: REGLA Furosemide (Furosemide 40 Mg/4 Ml Vial) 40 mg IVPUSH DAILY [facility]; Protocol Last Admin: 05/08/25 07:59 Dose: 40 mg Documented By: KIM Levofloxacin (Levaquin) 750 mg in 150 mls @ 100 mls/hr IV Q24H [facility] Last Infusion: 05/09/25 05:25 Dose: Infused Documented By: BRIANNA Lactic Acid (Ammonium Lactate 12 % Lotion 226 Gm Bottle) 1 appl TOPICAL BID [facility]; Protocol Last Admin: 05/08/25 21:35 Dose: 1 appl Documented By: DANNY Letrozole (Letrozole 2.5 Mg Tablet) 2.5 mg PO DAILY [facility] Last Admin: 05/08/25 07:59 Dose: 2.5 mg Documented By: KIM Magnesium Hydroxide (Milk Of Magnesia 30 Ml Oral.Susp) 30 ml PO DAILY PRN PRN Reason: Constipation Melatonin (Melatonin 3 Mg Tablet) 6 mg PO BEDTIME PRN PRN Reason: Insomnia Methylprednisolone Sodium Succinate (Methylprednisolone Sod Succ 40 Mg/Ml Vial) 40 mg IVPUSH Q12H [facility] Last Admin: 05/08/25 21:36 Dose: 40 mg Documented By: DANNY Multivitamins/Vitamin C (Multivitamin Tablet) 1 tab PO DAILY [facility] Non-Formulary Medication (Mesalamine) 1,000 mg GA BEDTIME PRN PRN Reason: RECTAL BLEEDING Non-Formulary Medication (Mesalamine) 1.2 - 2.4 gm PO DAILY [facility] Omeprazole (Omeprazole 20 Mg Capsule.Dr) 20 mg PO BID@0630,1630 [facility] Last Admin: 05/09/25 05:25 Dose: 20 mg Documented By: BRIANNA Potassium Chloride (Potassium Chloride Er 10 Meq Tablet.Er) 10 meq PO BID [facility] Last Admin: 05/08/25 21:35 Dose: 10 meq Documented By: DANNY Sertraline HCl (Sertraline Hcl 25 Mg Tablet) 25 mg PO DAILY [facility] Last Admin: 05/08/25 08:00 Dose: 25 mg Documented By: KIM Sodium Chloride (0.9 % Sodium Chloride Flush 3 Ml Syringe) 3 ml IVFLUSH QSHIFT [facility] Last Admin: 05/09/25 01:13 Dose: Not Given Documented By: BRIANNA Non-Admin Reason: Previously Administered Tiotropium [place] (Tiotropium [place] 2.5 Mcg 1 Puff/2.5 Mcg Mist.Inhal) 1 puff INHALE RDAILY [facility] Labs 05/07/25 05:49 05/07/25 05:49 Microbiology Microbiology Results: Microbiology 05/07/25 00:23 Blood Culture - Preliminary Blood - Venous No growth after 48 hours. 05/07/25 00:23 Blood Culture - Preliminary Blood - Venous No growth after 48 hours. 05/07/25 19:20 Urine Culture - Preliminary Urine clean catch - Clean Catch Midstream No growth to date. Quality Stroke Does the patient have a stroke diagnosis?: No VTE Prior VTE?: No VTE Risk Level:: Medical - moderate - high VTE Device Contraindication: Treatment Not Indicated VTE Drug Contraindication: N/A - Med Ordered
[2025-05-09 07:38] VITALS: BP 153/68; PULSE 72
[2025-05-09 07:39] VITALS: BP 153/68; PULSE 72
[2025-05-09] MEDS: Furosemide 40 MG/4 ML VIAL IVPUSH (07:39)
[2025-05-09] MEDS: Potassium Chloride ER 10 MEQ TABLET.ER PO (07:39)
[2025-05-09] MEDS: dilTIAZem HCL CD 180 MG CAP.ER.24H PO (07:39)
[2025-05-09] MEDS: Ammonium Lactate 12 % Lotion 226 GM BOTTLE 1 APPL TOPICAL (07:40)
[2025-05-09] MEDS: 0.9 % Sodium Chloride Flush 3 ML SYRINGE IVFLUSH (07:40)
[2025-05-09] MEDS: Betamethasone Dip Aug 0.05% Cr 15 GM TUBE 1 APPL TOPICAL (07:58)
[2025-05-09] MEDS: Fluticasone/Vilanterol 100/25 BLST.W.DEV 1 PUFF INHALE (08:26)
[2025-05-09] MEDS: Tiotropium Bromide 2.5 mcg 1 PUFF/2.5 MCG MIST.INHAL INHALE (08:26)
[2025-05-09 08:33] VITALS: PULSE 72; RESP 18; O2SAT 96
[2025-05-09 11:24] VITALS: BP 141/66; PULSE 77; RESP 20; TEMP 36.7; O2SAT 93
--- NOTE | 2025-05-09 13:58 | P.DS_ITS ---
DS: Providers Provider Date of admission: 05/07/25 03:59 Date of discharge: 05/09/25 Primary care physician: Josue Vann MD Consults: 05/07/25 23:04 Consult to Wound Care Routine Consulting Provider: [facility] Reason for consultation: legs Has provider been notified: Yes DS: Diagnosis Discharge Diagnosis (1) Acute hypoxemic respiratory failure: Status: Acute DS: Summary Hospital Course Hospital Course: Chief Complaint: Shortness of breath Eliza Bunch is a 75 years old woman with past medical history significant for COPD no home oxygen, pulmonary hypertension, HFpEF, lung cancer status post right upper lobectomy, MR, bilateral breast cancer status post lumpectomy and radiation and essential hypertension presents to the emergency department complaining of shortness on breath since Sunday associated with productive cough. She has been using her home inhalers without improvement of symptoms. She denied chest pain, palpitations, dizziness, nasal congestion, fever or chills. She denied any acute gastrointestinal genitourinary symptoms. Per chart review the patient was diagnosed with pneumonia on Sunday and was started on doxycycline today. Per EMS her oxygen saturation was 87% on room air and was started on supplemental oxygen via nasal cannula. In the ED, she was found to have tachypnea and oxygen saturation of 87% on room air. She was subsequently started on high-flow. Blood workup showed no leukocytosis. Hemoglobin is 13.1 and platelets 184. ABGs showed no respiratory acidosis. PO2 is slightly low at 82% there are no electrolyte imbalances. Renal function is normal. Glucose 121. Transaminases are mildly elevated. Bilirubin and alk-phos are normal. Pro BNP is 2097.2. Chest CTA showed no PE her, it showed pulmonary opacities that may reflect pneumonitis/pneumonia particularly in the left lung base and trace left pleural effusion. ECG showed normal sinus rhythm without obvious ischemic changes. ED Tx: Solu-Medrol 80 mg IV, DuoNeb 3 mL inhaled, Lasix 40 mg IV Hospital course: The patient presented after failure of outpatient antibiotics with acute hypoxic respiratory failure, requiring high?flow nasal cannula. Evaluation revealed left lower lobe pneumonia vs pneumonitis with contributing asthma/COPD exacerbation and mild volume overload in the setting of sepsis secondary to flu a causing exacerbation of HFpEF. Pulmonary embolism was ruled out on admission imaging. Influenza and Legionella testing were negative. She was treated with IV empiric antibiotics which has since been discontinued as it is symptomatic management for flu a, systemic corticosteroids-switch to p.o. steroids, bronchodilator therapy, and IV diuresis with Lasix. Oxygen requirements gradually improved, and she was successfully weaned from high flow to low flow nasal cannula and then room air. Volume status improved with diuresis, with stable renal function. Chronic medical conditions remained stable during hospitalization, and home medications were continued as appropriate. Physical and occupational therapy evaluated the patient given kyphoscoliosis and deconditioning. At the time of discharge, the patient was hemodynamically stable, tolerating oral medications, ambulating with assistance as baseline, and had stable oxygenation. Patient has been advised to use precautions when helping her sister who is severely immunocompromised and they have to suction her frequently. Patient in agreement with the above plan. Time spent discussing smoking cessation with patient: more than 10 minutes Status at Discharge Functional status at discharge: uses cane/walker Overall status at discharge: patient is progressing back to baseline Time Attestation Discharge Coordination Time (in mins): 75 minutes Quality: Safe Use of Opioids Does Pt have an Active Cancer Diagnosis on the Problem List?: Yes Opioid Measure Date for [facility] Report: 04/09/25 Opioid Measure Time for [facility] Report: 14:01 Quality: Stroke Does the patient have a stroke diagnosis?: No Physical Exam Vital Signs: Vital Signs: Last Vital Signs Temp 98.1 F 05/09/25 11:24 Pulse 77 05/09/25 11:24 Resp 20 05/09/25 11:24 BP 141/66 H 05/09/25 11:24 Pulse Ox 93 05/09/25 11:24 O2 Del Method Room Air 05/09/25 11:24 O2 Flow Rate 1 05/09/25 07:33 BMI result Body Mass Index 26.7 DS: Data Data Completed and Pending Labs on day of discharge: Preliminary micro results at discharge 05/07/25 00:23 Blood Culture - Preliminary Blood - Venous No growth after 48 hours. 05/07/25 00:23 Blood Culture - Preliminary Blood - Venous No growth after 48 hours. Discharge Plan Discharge Anticipated Discharge Date/Time: 05/09/25 13:10 Patient Disposition: Home, Self-Care Discharge Diagnosis: Acute hypoxic respiratory failure due to human metapneumovirus in an immunocompromised patient Referrals: Soo,Josue K, MD [Primary Care Provider, Internal Medicine] - 1 Week Discharge Medications: New levofloxacin 750 mg Tablet 750 mg PO Q24H 3 Days Qty: 3 0RF prednisone 20 mg tablet 40 mg PO DAILY 10 Days Qty: 20 0RF Continued (DME) BreatheRite MDI Spacer Spacer See Rx Instructions .Route Qty: 1 3RF Rx Instructions: As directed albuterol sulfate 1.25 mg/3 mL solution for nebulization 2.5 mg inhalation Q4-6H PRN (Reason: shortness of breath or wheezing) 30 Days Qty: 90 2RF diltiazem HCl 180 mg capsule,extended release 24hr 180 mg PO DAILY Qty: 90 3RF sertraline 25 mg tablet 25 mg PO DAILY Qty: 90 1RF atorvastatin [Lipitor] 10 mg tablet 10 mg PO DAILY Qty: 90 1RF alprazolam 0.5 mg tablet 0.5 mg PO BID PRN (Reason: anxiety) Qty: 60 1RF calcium citrate-vitamin D3 315 mg-6.25 mcg (250 unit) tablet 1 tab PO BID Qty: 60 11RF albuterol sulfate 90 mcg/actuation HFA aerosol inhaler 2 puff inhalation Q4-6H PRN (Reason: for wheezing) Qty: 18 3RF ferrous sulfate 28 mg iron Tablet 28 mg PO DAILY acetaminophen 500 mg Tablet 1,000 mg PO Q6H PRN (Reason: Pain) furosemide 20 mg tablet 60 mg PO DAILY clobetasol 0.05 % ointment 1 appl topical DAILY omeprazole 20 mg capsule,delayed release(DR/EC) 20 mg PO BID@0630,1630 multivitamin Tablet 1 tab PO DAILY letrozole 2.5 mg tablet 2.5 mg PO DAILY carvedilol 3.125 mg tablet 3.125 mg PO BID Rx Instructions: must administer with a meal/food fluticasone propion-salmeterol [Wixela Inhub] 250-50 mcg/dose blister with device 1 ea inhalation BID 30 Days Qty: 60 5RF tiotropium bromide [Spiriva with HandiHaler] 18 mcg capsule, w/inhalation device 1 cap inhalation DAILY 30 Days Qty: 30 5RF Rx Instructions: puncture 1 cap using device; one dose = 2 inhalations mesalamine 1,000 mg suppository 1,000 mg CO BEDTIME PRN (Reason: RECTAL BLEEDING) ammonium lactate 12 % lotion 1 appl topical BID Qty: 400 1RF potassium chloride 10 mEq capsule, extended release 10 meq PO BID mesalamine 1.2 gram tablet,delayed release (DR/EC) 1.2 - 2.4 g PO DAILY Discontinued doxycycline hyclate 100 mg capsule 100 mg PO Q12H 5 Days Qty: 10 0RF Discharge Orders: Discharge Order (Routine); Ordered 05/09/25 Ordered By: Nyla Ryan Diet: Low salt diet Activity on Discharge: Use cane or walker Stand Alone Forms: Patient Portal Discharge page Print Language: Ukrainian Care Plan Goals: Follow Up Care Primary Care Physician: Follow up within 1 week of discharge for medication review, blood pressure check, and overall clinical assessment. Pulmonology: Follow up within 2?4 weeks for management of asthma/COPD overlap, review of oxygen needs (if applicable), and reassessment after pneumonia/pneumonitis. Cardiology: Follow up within 2?4 weeks for HFpEF and known mild?moderate mitral regurgitation. Oncology: Continue routine outpatient surveillance for history of breast cancer and prior lung cancer. Physical Therapy: Continue outpatient or home physical therapy as arranged for kyphoscoliosis and deconditioning. Discharge Instructions Respiratory Care Take all inhalers and breathing treatments exactly as prescribed. Complete the full course of prescribed antibiotics. Finish steroid taper as instructed. Use supplemental oxygen if prescribed, and do not adjust flow rate without guidance. Use incentive spirometer if provided. Heart Failure / Fluid Management Take diuretics as prescribed. Follow a low?salt diet. Check daily weights at the same time each morning and notify your physician for: Weight gain >2 lbs in 1 day or >5 lbs in 1 week Monitor for leg swelling or increasing shortness of breath. Medications Continue home medications including carvedilol, diltiazem, letrozole, and statin. Do not stop or start new medications without discussing with your physician. Avoid NSAIDs unless specifically approved. Activity Resume activity as tolerated. Use assistive devices as needed. Continue physical therapy exercises as instructed. Diet Heart?healthy, low?sodium diet Maintain adequate hydration unless otherwise instructed When to Seek Immediate Medical Care Go to the emergency department or call 911 for: Worsening shortness of breath or oxygen levels below your usual baseline Chest pain or pressure New or worsening wheezing not relieved by inhalers Fever, chills, or signs of infection Dizziness, fainting, or confusion Rapid weight gain or significant leg swelling Additional Instructions Keep all follow?up appointments. Bring your medication list to every visit. Contact your primary care office with any questions or concerns after discharge. Health Concerns: See above Plan of Treatment: See above Assessment: See above
--- NOTE | 2025-05-09 14:10 | MHC.CM.PN ---
Patient is medically cleared to discharge today. She will dc to home self care. 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
[2025-05-09 23:53] LABS: Strep Pneumo Ag urine Not Detected (Not Detected)
== END 2025-05-09 15:25 | disposition home or self-care (01) | DRG 193 ==
LOC: HO.ED 05-07 03:43 → HO.EDOVER 05-07 04:10 → HO.IMC 05-07 13:29
PROVIDERS: Emergency Medicine; Admitting Provider Internal Medicine; Emergency Provider Emergency Medicine; PCP Internal Medicine; Visit Provider Student in an Organized Health Care Education/Training Program
DX: J18.9 Pneumonia, unspecified organism (principal); I50.33 Acute on chronic diastolic (congestive) heart failure; J96.01 Acute respiratory failure with hypoxia; J44.1 Chronic obstructive pulmonary disease with (acute) exacerbation; J44.0 Chronic obstructive pulmonary disease with (acute) lower respiratory infection; I11.0 Hypertensive heart disease with heart failure; I87.2 Venous insufficiency (chronic) (peripheral); E78.5 Hyperlipidemia, unspecified; M41.9 Scoliosis, unspecified; I34.0 Nonrheumatic mitral (valve) insufficiency; B97.81 Human metapneumovirus as the cause of diseases classified elsewhere; C50.912 Malignant neoplasm of unspecified site of left female breast; C50.911 Malignant neoplasm of unspecified site of right female breast; Z90.2 Acquired absence of lung [part of]; Z85.118 Personal history of other malignant neoplasm of bronchus and lung; Z87.891 Personal history of nicotine dependence; Z79.811 Long term (current) use of aromatase inhibitors; Z79.899 Other long term (current) drug therapy
CPT/HCPCS: 36415; 71045; 71275; 80048; 80053; 81001; 81003; 82803; 83605; 83735; 83880; 84484; 85025; 87040; 87086; 87449; 87633; 87637; 87899; 93005; 93306; 94640; 97162; 99285; J1271; J1650; J1938; J1956; J2919; Q9957; Q9967

== ENCOUNTER → 2025-05-07 00:01 | Outpatient (BNV) | payer MEDICARE, SELFPAY | PROVIDERS: Emergency Provider Emergency Medicine; PCP Internal Medicine; Visit Provider Radiology Neuroradiology | DX: J90 Pleural effusion, not elsewhere classified (principal); J18.9 Pneumonia, unspecified organism; R06.02 Shortness of breath; R05.9 Cough, unspecified | CPT/HCPCS: 71045; 71275 ==

== ENCOUNTER → 2025-05-07 00:05 | Outpatient (BNV) | payer MEDICARE, SELFPAY | PROVIDERS: Admitting Provider Internal Medicine; Emergency Provider Emergency Medicine; PCP Internal Medicine; Visit Provider Internal Medicine Cardiovascular Disease | DX: R06.02 Shortness of breath (principal) | CPT/HCPCS: 93010 ==

== ENCOUNTER 2025-05-07 03:59 | Outpatient (BNV) | payer MEDICARE, SELFPAY | END 2025-05-08 07:00 | PROVIDERS: Admitting Provider Internal Medicine; Emergency Provider Emergency Medicine; PCP Internal Medicine; Visit Provider Internal Medicine Cardiovascular Disease | DX: I51.7 Cardiomegaly (principal); I35.0 Nonrheumatic aortic (valve) stenosis; I35.1 Nonrheumatic aortic (valve) insufficiency; I35.8 Other nonrheumatic aortic valve disorders; I77.810 Thoracic aortic ectasia | CPT/HCPCS: 93306 ==

== ENCOUNTER → 2025-05-07 03:59 | Outpatient (BNV) | payer MEDICARE, SELFPAY | PROVIDERS: Admitting Provider Internal Medicine; Emergency Provider Emergency Medicine; PCP Internal Medicine; Visit Provider Student in an Organized Health Care Education/Training Program | DX: J96.01 Acute respiratory failure with hypoxia (principal) | CPT/HCPCS: 99222; 99233; 99499 ==